=== PATIENT | male | born 1965 | race Caucasian/White ===

== ENCOUNTER 2017-10-30 17:07 | Inpatient (IN) ==
[2017-10-30] MEDS ORDERED: Sod Chloride 0.9% Inj 1,000 ML IV.SIG SCH ×2 (17:45)
--- NOTE | 2017-10-30 18:05 | ED ---
HPI General Chief complaint: Fever Stated complaint: Medical Time Seen by Provider: 10/30/17 17:25 Source: patient and EMS Mode of arrival: EMS Limitations: no limitations History of Present Illness HPI narrative: Patient is a 52-year-old male presenting to emerge department for evaluation of fevers. Patient was found in his hotel room by his friend with bruising on him, dried blood on his face and toes. Patient admits to binge drinking at least 1/5 of alcohol since Monday. Patient is reporting back pain. He states he feels shaky and thirsty. He denies any chest pain, shortness of breath, abdominal pain. He reports that his feet are bloody because he was walking in "crappy" flip-flops. He denies a significant past medical history, however he does not see a primary doctor. Patient states he binge drinks at least 3 times a week. Onset (ago): unknown Related Data Home Medications Medication Instructions Recorded Confirmed No Known Home Medications 10/30/17 10/30/17 Allergies Allergy/AdvReac Type Severity Reaction Status Date / Time No Known Allergies Allergy Unverified 10/30/17 17:35 Review of Systems Except as stated in HPI: all other systems reviewed are negative Constitutional Reports fever(s) and Reports weakness ENT Reports dry mouth Integumentary/Breasts Reports change in pigmentation, Reports lesions, Reports erythema, Reports unusual bruising and Reports jaundice Neurologic Reports frequent falls and Reports tremor(s) Hematologic/Lymphatic Reports easy bruising PMFSH Medical History Medical History EtOH dependence (Acute) Surgical History Surgical History No pertinent past surgical history (Acute) Family History Family History Uncle EtOH dependence Mother Breast cancer Father Prostate cancer Leukemia Social History Social History Substance History: Unable to Obtain Smoking Status: Current every day smoker Tobacco Type: Smokeless Tobacco How Often Do You Have a Drink Containing Alcohol: 4 or more times a week Recent Travel in [facility] within the Last 8 Weeks: No Recent Out of Country Travel within the Last 8 Weeks: No Immunization History Tetanus Immunization: Unsure Hx Influenza Vaccine This Season: No Exam Narrative Exam Narrative: GENERAL: Overweight, well-developed, alert male. Presenting in no acute distress. SKIN: Focused skin assessment warm/dry. Abrasion to plantar aspect of the left first toe, left third toe, right first and second toes. Bruising to right shoulder, left lower back, left buttock. Bruising to abdomen. Chronic discoloration to bilateral lower extremities. HEAD: Atraumatic. Normocephalic. EYES: Pupils equal and round. No scleral icterus. No injection or drainage. ENT: No nasal bleeding or discharge. Mucous membranes pink and moist. NECK: Trachea midline. No JVD. CARDIOVASCULAR: Tachycardic. No murmur appreciated. RESPIRATORY: No accessory muscle use. Clear to auscultation. Breath sounds equal bilaterally. GASTROINTESTINAL: Abdomen soft, non-tender, distended. Hepatic and splenic margins not palpable. MUSCULOSKELETAL: No obvious deformities. No clubbing. No cyanosis. No edema. NEUROLOGICAL: Awake and alert. No obvious cranial nerve deficits. Motor grossly within normal limits. Normal speech. Tremulous. PSYCHIATRIC: Appropriate mood and affect; insight and judgment normal. Course Initial Documented Vital Signs Temperature 103 F H 10/30/17 17:14 Pulse Rate 131 H 10/30/17 17:14 Respiratory Rate 20 10/30/17 17:14 Blood Pressure 129/58 L 10/30/17 17:14 Pulse Oximetry 95 10/30/17 17:14 Last Documented Vital Signs Temperature 100 F H 10/31/17 04:00 Pulse Rate 115 H 10/31/17 16:21 Respiratory Rate 29 H 10/31/17 16:23 Blood Pressure 81/54 L 10/31/17 04:00 Pulse Oximetry 100 10/31/17 13:15 Medical Decision Making LISA Attestation LISA supervised visit: Yes Attestation: I, Dr. Vera, have reviewed the advance practice practitioner's documentation and am in agreement, met with the patient face to face, made the diagnosis, and the medical decision making was done by me. The patient was initially evaluated by Sasha, the SUBSTANCE ABUSE NURSE. Please see their complete history and physical. *My assessment and Findings: The patient presents with a history of being found by a friend at a local hotel with altered mentation. The patient was noted to have dried blood in his nose, dried blood around his mouth, abrasions to his feet. The patient was noted to have tremulousness and fever. The patient reports that he is a daily alcohol drinker of approximately 1/5 of Vodka daily. The patient reports that he last had vodka earlier this morning. The patient reports having low back pain. When asked about his abrasions, he is unsure what happened. The only thing that the patient recalls is that he was wearing flip-flops which he tripped over. The patient's examination is remarkable for sinus tachycardia, tremulousness on examination. Abrasions and swelling to bilateral feet, dried blood present at the corners of the mouth, dried blood present in the patient's nose. During the course of the patient's emergency department visit, the patient's history, examination, and differential diagnosis were reviewed with the patient. The patient was placed on a hospital monitor with oximetry and frequent blood pressure monitoring. The patient had IV access obtained and blood work sent for analysis. The patient was initially provided normal saline IV fluids, thiamine 100 mg IV, broad-spectrum antibiotic coverage of vancomycin and Zosyn. The patient's laboratory studies were reviewed and remarkable for a white count of 23.5, toxic vacuolation is present, neutrophil predominance 93.9. Platelets are 76, hemoglobin is 13.1. PT is 19.4, INR 1.9, PTT 43.2, chemistry is remarkable for sodium 135, total bilirubin 5.4, glucose 260, magnesium 1.1 which will be supplemented IV, lipase 59, GFR 56, creatinine 1.33, CO2 19.5, calcium is 7.8, AST 174, anion gap 18, alk phos 269, albumin 2.6. Urinalysis shows few mucus, hazy urine, rare bacteria, culture not indicated. A chest x-ray shows subsegmental basilar airspace disease right greater than left differential diagnosis includes pneumonia and atelectasis in a patient with fever. A CT scan of the brain shows no acute abnormality. The patient's results were discussed with the patient, including the plan of care. I explained that further testing and/ or monitoring is indicated based on the patient's history, examination, and/ or laboratory findings. Therefore, I recommended admission for additional evaluation. The patient expressed understanding and was agreeable with this plan. The patient was admitted to the hospital in guarded condition and sent to a bed under the care of the documentation engineer's service. MDM Narrative Medical decision making narrative: Patient is a 52-year-old male presenting to emerge department for evaluation fever, alteration in mentation. Patient is an admitted alcoholic and has been binge drinking since Monday. Patient is tachycardic and febrile on arrival with temp of 103. Sepsis protocol initiated. Patient was given acetaminophen IV for his fever. Patient is received a total of 3 L of IV fluids. On arrival he was tremulous, he was initially given 1 mg of Ativan. This did not completely alleviate his symptoms , he was given a second 1 mg dose of Ativan. Tremors improved patient started to rest more comfortably. Patient remained tachycardic. Labs reviewed, CBC with white blood cell count of 23.5 with 26% bandemia. Magnesium is 1.1, 1 g of mag sulfate IV was ordered. Coagulopathy noted likely secondary to patient' s liver disease with an INR of 1.9. CT of the abdomen pelvis shows mild colitis , CT pulmonary angiogram shows right lung pneumonia, negative for pulmonary embolism. CT scan of patient's brain was negative for acute abnormalities. Blood cultures ordered and pending. Patient was also seen and evaluated by my attending physician. [place] [facility] [place] accepted admission, orders placed. Patient's temp was reassessed at 98.8 at 2132. Differential Diagnosis Differential Diagnosis: Metabolic abnormality versus alcohol withdrawal versus pulmonary embolism versus pneumonia versus bleed versus other Lab Data Lab results reviewed: Yes I reviewed the patient's lab results. Result diagrams: 10/31/17 04:18 10/31/17 12:04 Lab Results 10/30/17 10/30/17 10/30/17 Range/Units 17:39 17:39 17:39 WBC 23.5 H (4.0-11.0) th/mm3 RBC 3.74 L (4.50-5.90) mil/mm3 Hgb 13.1 (13.0-17.0) gm/dL Hct 39.2 (39.0-51.0) % MCV 104.6 H (80.0-100.0) fL MCH 35.1 H (27.0-34.0) pg MCHC 33.5 (32.0-36.0) % RDW 13.9 (11.6-17.2) % Plt Count 76 L (150-450) th/mm3 MPV 9.0 (7.0-11.0) fL Prelim Diff (Auto) Slide review pending Neut % (Auto) 93.9 H (16.0-70.0) % Lymph % (Auto) 2.2 L (9.0-44.0) % [place] % (Auto) 3.7 (0.0-8.0) % Eos % (Auto) 0.0 (0.0-4.0) % Baso % (Auto) 0.2 (0.0-2.0) % Neut # (Auto) 22.0 H (1.8-7.7) th/mm3 Lymph # (Auto) 0.5 L (1.0-4.8) th/mm3 [place] # (Auto) 0.9 (0.0-0.9) th/mm3 Eos # (Auto) 0.0 (0.0-0.4) th/mm3 Baso # (Auto) 0.0 (0.0-0.2) th/mm3 WBC Differential Manual diff final Seg Neuts % (Manual) 67 (16-70) % Band Neuts % (Manual) 26 H (0-6) % Lymphocytes % (Manual) (9-44) % Monocytes % (Manual) 5 (0-8) % Basophils % (Manual) 1 (0-2) % Metamyelocytes % (Man) 1 (0-1) % Abs Neuts (Manual) 22.1 H (1.8-7.7) th/mm3 Differential Comment . Toxic Granulation (None) Toxic Vacuolation Present H (None) Platelet Estimate Low L (Normal) Platelet Morphology Normal (Normal) Basophilic Stippling Faint H (None) PT 19.4 H (9.8-11.6) sec INR 1.9 Ratio APTT 43.2 H (24.3-30.1) sec Fibrinogen (227-377) mg/dL Puncture Site Patient Temperature O2 Saturation (90-100) % ABG pH (7.380-7.420) ABG pCO2 (38-42) mmHg ABG pO2 (61-120) mmHG ABG HCO3 (22-26) mmol/L ABG O2 Content (12.0-20.0) Vol % ABG Base Excess (-2-2) mmol/L ABG Methemoglobin (0-2) % Jamar Test Hemoglobin (12.0-16.0) G/DL Carboxyhemoglobin (0-4) % O2 Delivery Device Vent Setting Inspired O2 % Critical Value Sodium 135 L (136-145) meq/L Potassium 4.4 (3.5-5.1) meq/L Chloride 98 (98-107) meq/L Carbon Dioxide 19.5 L (21.0-32.0) meq/L Anion Gap 18 H (5-15) meq/L BUN 7 (7-18) mg/dL Creatinine 1.33 H (0.60-1.30) mg/dL Estimated GFR 56 L (>89) mL/min POC Glucose (68-110) mg/dl Random Glucose 260 H (74-106) mg/dL Lactic Acid (0.4-2.0) mmol/L Calcium 7.8 L (8.5-10.1) mg/dL Prot Corrected Calcium (8.5-10.1) mg/dL Phosphorus (2.5-4.9) mg/dL Magnesium 1.1 L (1.5-2.5) mg/dL Total Bilirubin 5.4 H (0.2-1.0) mg/dL AST 174 H (15-37) U/L ALT 39 (12-78) U/L Alkaline Phosphatase 269 H (45-117) U/L Ammonia (11-32) mcmol/L Total Creatine Kinase (39-308) U/L CK-MB (CK-2) (0.5-3.6) ng/mL CK-MB (CK-2) % (0.0-4.0) % Total Protein 7.8 (6.4-8.2) g/dL Albumin 2.6 L (3.4-5.0) g/dL Lipase 59 L (73-393) U/L Beta-Hydroxybutyric Acd (0.00-0.39) mmol/L TSH (0.358-3.740) uIU/mL Free T4 (0.76-1.46) ng/dL Free T3 (2.18-3.98) pg/mL Urine Color (Yellw/Straw) Urine Clarity (Clear) Urine pH (5.0-8.5) Ur Specific [place] (1.002-1.035) Urine Protein (Neg-Trace) mg/dL Urine Glucose (UA) (Negative) mg/dL Urine Ketones (Negative) mg/dL Urine Occult Blood (Negative) Urine Nitrate (Negative) Urine Bilirubin (Negative) Urine Urobilinogen (Less than 2) mg/dL Ur Leukocyte Esterase (Negative) Urine RBC (0-3) /hpf Urine WBC (0-5) /hpf Ur Squamous Epith Cells (0-5) /hpf Urine Bacteria (None) /hpf Hyaline Casts (0-3) /lpf Urine Mucus (Occasional) /lpf Micro UA Comment Urine Culture Comments Nasal Screen MRSA (PCR) (Negative) Salicylates (2.8-20.0) mg/dL Urine Opiates Screen (Neg) Acetaminophen (10.0-30.0) mcg/mL Ur Barbiturates Screen (Neg) Ur Amphetamines Screen (Neg) U Benzodiazepines Scrn (Neg) Urine Cocaine Screen (Neg) U Cannabinoids Screen (Neg) Serum Alcohol (0-5) mg/dL 10/30/17 10/30/17 10/30/17 Range/Units 17:39 17:39 17:39 WBC (4.0-11.0) th/mm3 RBC (4.50-5.90) mil/mm3 Hgb (13.0-17.0) gm/dL Hct (39.0-51.0) % MCV (80.0-100.0) fL MCH (27.0-34.0) pg MCHC (32.0-36.0) % RDW (11.6-17.2) % Plt Count (150-450) th/mm3 MPV (7.0-11.0) fL Prelim Diff (Auto) Neut % (Auto) (16.0-70.0) % Lymph % (Auto) (9.0-44.0) % [place] % (Auto) (0.0-8.0) % Eos % (Auto) (0.0-4.0) % Baso % (Auto) (0.0-2.0) % Neut # (Auto) (1.8-7.7) th/mm3 Lymph # (Auto) (1.0-4.8) th/mm3 [place] # (Auto) (0.0-0.9) th/mm3 Eos # (Auto) (0.0-0.4) th/mm3 Baso # (Auto) (0.0-0.2) th/mm3 WBC Differential Seg Neuts % (Manual) (16-70) % Band Neuts % (Manual) (0-6) % Lymphocytes % (Manual) (9-44) % Monocytes % (Manual) (0-8) % Basophils % (Manual) (0-2) % Metamyelocytes % (Man) (0-1) % Abs Neuts (Manual) (1.8-7.7) th/mm3 Differential Comment Toxic Granulation (None) Toxic Vacuolation (None) Platelet Estimate (Normal) Platelet Morphology (Normal) Basophilic Stippling (None) PT (9.8-11.6) sec INR Ratio APTT (24.3-30.1) sec Fibrinogen (227-377) mg/dL Puncture Site Patient Temperature O2 Saturation (90-100) % ABG pH (7.380-7.420) ABG pCO2 (38-42) mmHg ABG pO2 (61-120) mmHG ABG HCO3 (22-26) mmol/L ABG O2 Content (12.0-20.0) Vol % ABG Base Excess (-2-2) mmol/L ABG Methemoglobin (0-2) % Jamar Test Hemoglobin (12.0-16.0) G/DL Carboxyhemoglobin (0-4) % O2 Delivery Device Vent Setting Inspired O2 % Critical Value Sodium (136-145) meq/L Potassium (3.5-5.1) meq/L Chloride (98-107) meq/L Carbon Dioxide (21.0-32.0) meq/L Anion Gap (5-15) meq/L BUN (7-18) mg/dL Creatinine (0.60-1.30) mg/dL Estimated GFR (>89) mL/min POC Glucose (68-110) mg/dl Random Glucose (74-106) mg/dL Lactic Acid (0.4-2.0) mmol/L Calcium (8.5-10.1) mg/dL Prot Corrected Calcium (8.5-10.1) mg/dL Phosphorus 1.2 L (2.5-4.9) mg/dL Magnesium (1.5-2.5) mg/dL Total Bilirubin (0.2-1.0) mg/dL AST (15-37) U/L ALT (12-78) U/L Alkaline Phosphatase (45-117) U/L Ammonia (11-32) mcmol/L Total Creatine Kinase (39-308) U/L CK-MB (CK-2) (0.5-3.6) ng/mL CK-MB (CK-2) % (0.0-4.0) % Total Protein (6.4-8.2) g/dL Albumin (3.4-5.0) g/dL Lipase (73-393) U/L Beta-Hydroxybutyric Acd (0.00-0.39) mmol/L TSH 0.250 L (0.358-3.740) uIU/mL Free T4 (0.76-1.46) ng/dL Free T3 (2.18-3.98) pg/mL Urine Color (Yellw/Straw) Urine Clarity (Clear) Urine pH (5.0-8.5) Ur Specific [place] (1.002-1.035) Urine Protein (Neg-Trace) mg/dL Urine Glucose (UA) (Negative) mg/dL Urine Ketones (Negative) mg/dL Urine Occult Blood (Negative) Urine Nitrate (Negative) Urine Bilirubin (Negative) Urine Urobilinogen (Less than 2) mg/dL Ur Leukocyte Esterase (Negative) Urine RBC (0-3) /hpf Urine WBC (0-5) /hpf Ur Squamous Epith Cells (0-5) /hpf Urine Bacteria (None) /hpf Hyaline Casts (0-3) /lpf Urine Mucus (Occasional) /lpf Micro UA Comment Urine Culture Comments Nasal Screen MRSA (PCR) (Negative) Salicylates Less than 1.7 L (2.8-20.0) mg/dL Urine Opiates Screen (Neg) Acetaminophen Less than 2.0 L (10.0-30.0) mcg/mL Ur Barbiturates Screen (Neg) Ur Amphetamines Screen (Neg) U Benzodiazepines Scrn (Neg) Urine Cocaine Screen (Neg) U Cannabinoids Screen (Neg) Serum Alcohol 147 H (0-5) mg/dL 10/30/17 10/30/17 10/30/17 Range/Units 17:45 17:45 19:29 WBC (4.0-11.0) th/mm3 RBC (4.50-5.90) mil/mm3 Hgb (13.0-17.0) gm/dL Hct (39.0-51.0) % MCV (80.0-100.0) fL MCH (27.0-34.0) pg MCHC (32.0-36.0) % RDW (11.6-17.2) % Plt Count (150-450) th/mm3 MPV (7.0-11.0) fL Prelim Diff (Auto) Neut % (Auto) (16.0-70.0) % Lymph % (Auto) (9.0-44.0) % [place] % (Auto) (0.0-8.0) % Eos % (Auto) (0.0-4.0) % Baso % (Auto) (0.0-2.0) % Neut # (Auto) (1.8-7.7) th/mm3 Lymph # (Auto) (1.0-4.8) th/mm3 [place] # (Auto) (0.0-0.9) th/mm3 Eos # (Auto) (0.0-0.4) th/mm3 Baso # (Auto) (0.0-0.2) th/mm3 WBC Differential Seg Neuts % (Manual) (16-70) % Band Neuts % (Manual) (0-6) % Lymphocytes % (Manual) (9-44) % Monocytes % (Manual) (0-8) % Basophils % (Manual) (0-2) % Metamyelocytes % (Man) (0-1) % Abs Neuts (Manual) (1.8-7.7) th/mm3 Differential Comment Toxic Granulation (None) Toxic Vacuolation (None) Platelet Estimate (Normal) Platelet Morphology (Normal) Basophilic Stippling (None) PT (9.8-11.6) sec INR Ratio APTT (24.3-30.1) sec Fibrinogen (227-377) mg/dL Puncture Site Patient Temperature O2 Saturation (90-100) % ABG pH (7.380-7.420) ABG pCO2 (38-42) mmHg ABG pO2 (61-120) mmHG ABG HCO3 (22-26) mmol/L ABG O2 Content (12.0-20.0) Vol % ABG Base Excess (-2-2) mmol/L ABG Methemoglobin (0-2) % Jamar Test Hemoglobin (12.0-16.0) G/DL Carboxyhemoglobin (0-4) % O2 Delivery Device Vent Setting Inspired O2 % Critical Value Sodium (136-145) meq/L Potassium (3.5-5.1) meq/L Chloride (98-107) meq/L Carbon Dioxide (21.0-32.0) meq/L Anion Gap (5-15) meq/L BUN (7-18) mg/dL Creatinine (0.60-1.30) mg/dL Estimated GFR (>89) mL/min POC Glucose (68-110) mg/dl Random Glucose (74-106) mg/dL Lactic Acid 11.4 H* (0.4-2.0) mmol/L Calcium (8.5-10.1) mg/dL Prot Corrected Calcium (8.5-10.1) mg/dL Phosphorus (2.5-4.9) mg/dL Magnesium (1.5-2.5) mg/dL Total Bilirubin (0.2-1.0) mg/dL AST (15-37) U/L ALT (12-78) U/L Alkaline Phosphatase (45-117) U/L Ammonia (11-32) mcmol/L Total Creatine Kinase (39-308) U/L CK-MB (CK-2) (0.5-3.6) ng/mL CK-MB (CK-2) % (0.0-4.0) % Total Protein (6.4-8.2) g/dL Albumin (3.4-5.0) g/dL Lipase (73-393) U/L Beta-Hydroxybutyric Acd (0.00-0.39) mmol/L TSH (0.358-3.740) uIU/mL Free T4 (0.76-1.46) ng/dL Free T3 (2.18-3.98) pg/mL Urine Color [place] (Yellw/Straw) Urine Clarity Hazy H (Clear) Urine pH 5.0 (5.0-8.5) Ur Specific [place] 1.017 (1.002-1.035) Urine Protein Negative (Neg-Trace) mg/dL Urine Glucose (UA) 50 (Negative) mg/dL Urine Ketones Negative (Negative) mg/dL Urine Occult Blood Negative (Negative) Urine Nitrate Negative (Negative) Urine Bilirubin Negative (Negative) Urine Urobilinogen 4 or greater (Less than 2) mg/dL Ur Leukocyte Esterase Negative (Negative) Urine RBC 1 (0-3) /hpf Urine WBC 3 (0-5) /hpf Ur Squamous Epith Cells <1 (0-5) /hpf Urine Bacteria Rare H (None) /hpf Hyaline Casts 6 (0-3) /lpf Urine Mucus Few H (Occasional) /lpf Micro UA Comment Culture not ind Urine Culture Comments Culture not ind Nasal Screen MRSA (PCR) (Negative) Salicylates (2.8-20.0) mg/dL Urine Opiates Screen Neg (Neg) Acetaminophen (10.0-30.0) mcg/mL Ur Barbiturates Screen Neg (Neg) Ur Amphetamines Screen Neg (Neg) U Benzodiazepines Scrn Neg (Neg) Urine Cocaine Screen Neg (Neg) U Cannabinoids Screen Neg (Neg) Serum Alcohol (0-5) mg/dL 10/30/17 10/30/17 10/30/17 Range/Units 22:28 22:28 22:28 WBC (4.0-11.0) th/mm3 RBC (4.50-5.90) mil/mm3 Hgb (13.0-17.0) gm/dL Hct (39.0-51.0) % MCV (80.0-100.0) fL MCH (27.0-34.0) pg MCHC (32.0-36.0) % RDW (11.6-17.2) % Plt Count (150-450) th/mm3 MPV (7.0-11.0) fL Prelim Diff (Auto) Neut % (Auto) (16.0-70.0) % Lymph % (Auto) (9.0-44.0) % [place] % (Auto) (0.0-8.0) % Eos % (Auto) (0.0-4.0) % Baso % (Auto) (0.0-2.0) % Neut # (Auto) (1.8-7.7) th/mm3 Lymph # (Auto) (1.0-4.8) th/mm3 [place] # (Auto) (0.0-0.9) th/mm3 Eos # (Auto) (0.0-0.4) th/mm3 Baso # (Auto) (0.0-0.2) th/mm3 WBC Differential Seg Neuts % (Manual) (16-70) % Band Neuts % (Manual) (0-6) % Lymphocytes % (Manual) (9-44) % Monocytes % (Manual) (0-8) % Basophils % (Manual) (0-2) % Metamyelocytes % (Man) (0-1) % Abs Neuts (Manual) (1.8-7.7) th/mm3 Differential Comment Toxic Granulation (None) Toxic Vacuolation (None) Platelet Estimate (Normal) Platelet Morphology (Normal) Basophilic Stippling (None) PT (9.8-11.6) sec INR Ratio APTT (24.3-30.1) sec Fibrinogen (227-377) mg/dL Puncture Site Patient Temperature O2 Saturation (90-100) % ABG pH (7.380-7.420) ABG pCO2 (38-42) mmHg ABG pO2 (61-120) mmHG ABG HCO3 (22-26) mmol/L ABG O2 Content (12.0-20.0) Vol % ABG Base Excess (-2-2) mmol/L ABG Methemoglobin (0-2) % Jamar Test Hemoglobin (12.0-16.0) G/DL Carboxyhemoglobin (0-4) % O2 Delivery Device Vent Setting Inspired O2 % Critical Value Sodium (136-145) meq/L Potassium (3.5-5.1) meq/L Chloride (98-107) meq/L Carbon Dioxide (21.0-32.0) meq/L Anion Gap (5-15) meq/L BUN (7-18) mg/dL Creatinine (0.60-1.30) mg/dL Estimated GFR (>89) mL/min POC Glucose (68-110) mg/dl Random Glucose (74-106) mg/dL Lactic Acid 11.1 H* (0.4-2.0) mmol/L Calcium (8.5-10.1) mg/dL Prot Corrected Calcium (8.5-10.1) mg/dL Phosphorus (2.5-4.9) mg/dL Magnesium (1.5-2.5) mg/dL Total Bilirubin (0.2-1.0) mg/dL AST (15-37) U/L ALT (12-78) U/L Alkaline Phosphatase (45-117) U/L Ammonia 44 H (11-32) mcmol/L Total Creatine Kinase (39-308) U/L CK-MB (CK-2) (0.5-3.6) ng/mL CK-MB (CK-2) % (0.0-4.0) % Total Protein (6.4-8.2) g/dL Albumin (3.4-5.0) g/dL Lipase (73-393) U/L Beta-Hydroxybutyric Acd 0.13 (0.00-0.39) mmol/L TSH (0.358-3.740) uIU/mL Free T4 (0.76-1.46) ng/dL Free T3 (2.18-3.98) pg/mL Urine Color (Yellw/Straw) Urine Clarity (Clear) Urine pH (5.0-8.5) Ur Specific [place] (1.002-1.035) Urine Protein (Neg-Trace) mg/dL Urine Glucose (UA) (Negative) mg/dL Urine Ketones (Negative) mg/dL Urine Occult Blood (Negative) Urine Nitrate (Negative) Urine Bilirubin (Negative) Urine Urobilinogen (Less than 2) mg/dL Ur Leukocyte Esterase (Negative) Urine RBC (0-3) /hpf Urine WBC (0-5) /hpf Ur Squamous Epith Cells (0-5) /hpf Urine Bacteria (None) /hpf Hyaline Casts (0-3) /lpf Urine Mucus (Occasional) /lpf Micro UA Comment Urine Culture Comments Nasal Screen MRSA (PCR) (Negative) Salicylates (2.8-20.0) mg/dL Urine Opiates Screen (Neg) Acetaminophen (10.0-30.0) mcg/mL Ur Barbiturates Screen (Neg) Ur Amphetamines Screen (Neg) U Benzodiazepines Scrn (Neg) Urine Cocaine Screen (Neg) U Cannabinoids Screen (Neg) Serum Alcohol (0-5) mg/dL 10/30/17 10/31/17 10/31/17 Range/Units 23:12 02:26 04:18 WBC (4.0-11.0) th/mm3 RBC (4.50-5.90) mil/mm3 Hgb (13.0-17.0) gm/dL Hct (39.0-51.0) % MCV (80.0-100.0) fL MCH (27.0-34.0) pg MCHC (32.0-36.0) % RDW (11.6-17.2) % Plt Count (150-450) th/mm3 MPV (7.0-11.0) fL Prelim Diff (Auto) Neut % (Auto) (16.0-70.0) % Lymph % (Auto) (9.0-44.0) % [place] % (Auto) (0.0-8.0) % Eos % (Auto) (0.0-4.0) % Baso % (Auto) (0.0-2.0) % Neut # (Auto) (1.8-7.7) th/mm3 Lymph # (Auto) (1.0-4.8) th/mm3 [place] # (Auto) (0.0-0.9) th/mm3 Eos # (Auto) (0.0-0.4) th/mm3 Baso # (Auto) (0.0-0.2) th/mm3 WBC Differential Seg Neuts % (Manual) (16-70) % Band Neuts % (Manual) (0-6) % Lymphocytes % (Manual) (9-44) % Monocytes % (Manual) (0-8) % Basophils % (Manual) (0-2) % Metamyelocytes % (Man) (0-1) % Abs Neuts (Manual) (1.8-7.7) th/mm3 Differential Comment Toxic Granulation (None) Toxic Vacuolation (None) Platelet Estimate (Normal) Platelet Morphology (Normal) Basophilic Stippling (None) PT (9.8-11.6) sec INR Ratio APTT (24.3-30.1) sec Fibrinogen (227-377) mg/dL Puncture Site Right radial Patient Temperature 98.6 O2 Saturation 93 (90-100) % ABG pH 7.32 L (7.380-7.420) ABG pCO2 37 L (38-42) mmHg ABG pO2 83 (61-120) mmHG ABG HCO3 19 L (22-26) mmol/L ABG O2 Content 16.2 (12.0-20.0) Vol % ABG Base Excess -6.4 L (-2-2) mmol/L ABG Methemoglobin 1.3 (0-2) % Jamar Test Present Hemoglobin 12.3 (12.0-16.0) G/DL Carboxyhemoglobin 0.8 (0-4) % O2 Delivery Device Vent Vent Setting See comments Inspired O2 100 % Critical Value No Sodium (136-145) meq/L Potassium (3.5-5.1) meq/L Chloride (98-107) meq/L Carbon Dioxide (21.0-32.0) meq/L Anion Gap (5-15) meq/L BUN (7-18) mg/dL Creatinine (0.60-1.30) mg/dL Estimated GFR (>89) mL/min POC Glucose (68-110) mg/dl Random Glucose (74-106) mg/dL Lactic Acid 9.0 H* (0.4-2.0) mmol/L Calcium (8.5-10.1) mg/dL Prot Corrected Calcium (8.5-10.1) mg/dL Phosphorus (2.5-4.9) mg/dL Magnesium (1.5-2.5) mg/dL Total Bilirubin (0.2-1.0) mg/dL AST (15-37) U/L ALT (12-78) U/L Alkaline Phosphatase (45-117) U/L Ammonia (11-32) mcmol/L Total Creatine Kinase (39-308) U/L CK-MB (CK-2) (0.5-3.6) ng/mL CK-MB (CK-2) % (0.0-4.0) % Total Protein (6.4-8.2) g/dL Albumin (3.4-5.0) g/dL Lipase (73-393) U/L Beta-Hydroxybutyric Acd (0.00-0.39) mmol/L TSH (0.358-3.740) uIU/mL Free T4 (0.76-1.46) ng/dL Free T3 (2.18-3.98) pg/mL Urine Color (Yellw/Straw) Urine Clarity (Clear) Urine pH (5.0-8.5) Ur Specific [place] (1.002-1.035) Urine Protein (Neg-Trace) mg/dL Urine Glucose (UA) (Negative) mg/dL Urine Ketones (Negative) mg/dL Urine Occult Blood (Negative) Urine Nitrate (Negative) Urine Bilirubin (Negative) Urine Urobilinogen (Less than 2) mg/dL Ur Leukocyte Esterase (Negative) Urine RBC (0-3) /hpf Urine WBC (0-5) /hpf Ur Squamous Epith Cells (0-5) /hpf Urine Bacteria (None) /hpf Hyaline Casts (0-3) /lpf Urine Mucus (Occasional) /lpf Micro UA Comment Urine Culture Comments Nasal Screen MRSA (PCR) Mrsa detected (Negative) Salicylates (2.8-20.0) mg/dL Urine Opiates Screen (Neg) Acetaminophen (10.0-30.0) mcg/mL Ur Barbiturates Screen (Neg) Ur Amphetamines Screen (Neg) U Benzodiazepines Scrn (Neg) Urine Cocaine Screen (Neg) U Cannabinoids Screen (Neg) Serum Alcohol (0-5) mg/dL 10/31/17 10/31/17 10/31/17 Range/Units 04:18 04:18 04:18 WBC 23.8 H (4.0-11.0) th/mm3 RBC 3.70 L (4.50-5.90) mil/mm3 Hgb 12.8 L (13.0-17.0) gm/dL Hct 38.7 L (39.0-51.0) % MCV 104.6 H (80.0-100.0) fL MCH 34.6 H (27.0-34.0) pg MCHC 33.1 (32.0-36.0) % RDW 14.7 (11.6-17.2) % Plt Count 70 L (150-450) th/mm3 MPV 9.8 (7.0-11.0) fL Prelim Diff (Auto) Slide review pending Neut % (Auto) 95.5 H (16.0-70.0) % Lymph % (Auto) 1.0 L (9.0-44.0) % [place] % (Auto) 2.9 (0.0-8.0) % Eos % (Auto) 0.0 (0.0-4.0) % Baso % (Auto) 0.6 (0.0-2.0) % Neut # (Auto) 22.8 H (1.8-7.7) th/mm3 Lymph # (Auto) 0.2 L (1.0-4.8) th/mm3 [place] # (Auto) 0.7 (0.0-0.9) th/mm3 Eos # (Auto) 0.0 (0.0-0.4) th/mm3 Baso # (Auto) 0.1 (0.0-0.2) th/mm3 WBC Differential Manual diff final Seg Neuts % (Manual) 59 (16-70) % Band Neuts % (Manual) 35 H (0-6) % Lymphocytes % (Manual) 1 L (9-44) % Monocytes % (Manual) 1 (0-8) % Basophils % (Manual) (0-2) % Metamyelocytes % (Man) 4 H (0-1) % Abs Neuts (Manual) 23.3 H (1.8-7.7) th/mm3 Differential Comment . Toxic Granulation 1+ H (None) Toxic Vacuolation Present H (None) Platelet Estimate Low L (Normal) Platelet Morphology Enlarged H (Normal) Basophilic Stippling (None) PT 20.8 H (9.8-11.6) sec INR 2.1 Ratio APTT 53.0 H D (24.3-30.1) sec Fibrinogen 206 L (227-377) mg/dL Puncture Site Patient Temperature O2 Saturation (90-100) % ABG pH (7.380-7.420) ABG pCO2 (38-42) mmHg ABG pO2 (61-120) mmHG ABG HCO3 (22-26) mmol/L ABG O2 Content (12.0-20.0) Vol % ABG Base Excess (-2-2) mmol/L ABG Methemoglobin (0-2) % Jamar Test Hemoglobin (12.0-16.0) G/DL Carboxyhemoglobin (0-4) % O2 Delivery Device Vent Setting Inspired O2 % Critical Value Sodium 138 (136-145) meq/L Potassium 5.4 H D (3.5-5.1) meq/L Chloride 101 (98-107) meq/L Carbon Dioxide 23.2 (21.0-32.0) meq/L Anion Gap 14 (5-15) meq/L BUN 9 (7-18) mg/dL Creatinine 1.95 H (0.60-1.30) mg/dL Estimated GFR 36 L (>89) mL/min POC Glucose (68-110) mg/dl Random Glucose 139 H D (74-106) mg/dL Lactic Acid (0.4-2.0) mmol/L Calcium 7.1 L* (8.5-10.1) mg/dL Prot Corrected Calcium 7.1 L* (8.5-10.1) mg/dL Phosphorus 3.4 D (2.5-4.9) mg/dL Magnesium 1.2 L (1.5-2.5) mg/dL Total Bilirubin 6.5 H (0.2-1.0) mg/dL AST 173 H (15-37) U/L ALT 36 (12-78) U/L Alkaline Phosphatase 184 H (45-117) U/L Ammonia (11-32) mcmol/L Total Creatine Kinase (39-308) U/L CK-MB (CK-2) (0.5-3.6) ng/mL CK-MB (CK-2) % (0.0-4.0) % Total Protein 7.3 (6.4-8.2) g/dL Albumin 2.5 L (3.4-5.0) g/dL Lipase (73-393) U/L Beta-Hydroxybutyric Acd (0.00-0.39) mmol/L TSH (0.358-3.740) uIU/mL Free T4 1.28 (0.76-1.46) ng/dL Free T3 1.57 L (2.18-3.98) pg/mL Urine Color (Yellw/Straw) Urine Clarity (Clear) Urine pH (5.0-8.5) Ur Specific [place] (1.002-1.035) Urine Protein (Neg-Trace) mg/dL Urine Glucose (UA) (Negative) mg/dL Urine Ketones (Negative) mg/dL Urine Occult Blood (Negative) Urine Nitrate (Negative) Urine Bilirubin (Negative) Urine Urobilinogen (Less than 2) mg/dL Ur Leukocyte Esterase (Negative) Urine RBC (0-3) /hpf Urine WBC (0-5) /hpf Ur Squamous Epith Cells (0-5) /hpf Urine Bacteria (None) /hpf Hyaline Casts (0-3) /lpf Urine Mucus (Occasional) /lpf Micro UA Comment Urine Culture Comments Nasal Screen MRSA (PCR) (Negative) Salicylates (2.8-20.0) mg/dL Urine Opiates Screen (Neg) Acetaminophen (10.0-30.0) mcg/mL Ur Barbiturates Screen (Neg) Ur Amphetamines Screen (Neg) U Benzodiazepines Scrn (Neg) Urine Cocaine Screen (Neg) U Cannabinoids Screen (Neg) Serum Alcohol (0-5) mg/dL 10/31/17 10/31/17 10/31/17 Range/Units 12:04 12:04 12:04 WBC (4.0-11.0) th/mm3 RBC (4.50-5.90) mil/mm3 Hgb (13.0-17.0) gm/dL Hct (39.0-51.0) % MCV (80.0-100.0) fL MCH (27.0-34.0) pg MCHC (32.0-36.0) % RDW (11.6-17.2) % Plt Count (150-450) th/mm3 MPV (7.0-11.0) fL Prelim Diff (Auto) Neut % (Auto) (16.0-70.0) % Lymph % (Auto) (9.0-44.0) % [place] % (Auto) (0.0-8.0) % Eos % (Auto) (0.0-4.0) % Baso % (Auto) (0.0-2.0) % Neut # (Auto) (1.8-7.7) th/mm3 Lymph # (Auto) (1.0-4.8) th/mm3 [place] # (Auto) (0.0-0.9) th/mm3 Eos # (Auto) (0.0-0.4) th/mm3 Baso # (Auto) (0.0-0.2) th/mm3 WBC Differential Seg Neuts % (Manual) (16-70) % Band Neuts % (Manual) (0-6) % Lymphocytes % (Manual) (9-44) % Monocytes % (Manual) (0-8) % Basophils % (Manual) (0-2) % Metamyelocytes % (Man) (0-1) % Abs Neuts (Manual) (1.8-7.7) th/mm3 Differential Comment Toxic Granulation (None) Toxic Vacuolation (None) Platelet Estimate (Normal) Platelet Morphology (Normal) Basophilic Stippling (None) PT (9.8-11.6) sec INR Ratio APTT (24.3-30.1) sec Fibrinogen (227-377) mg/dL Puncture Site Patient Temperature O2 Saturation (90-100) % ABG pH (7.380-7.420) ABG pCO2 (38-42) mmHg ABG pO2 (61-120) mmHG ABG HCO3 (22-26) mmol/L ABG O2 Content (12.0-20.0) Vol % ABG Base Excess (-2-2) mmol/L ABG Methemoglobin (0-2) % Jamar Test Hemoglobin (12.0-16.0) G/DL Carboxyhemoglobin (0-4) % O2 Delivery Device Vent Setting Inspired O2 % Critical Value Sodium (136-145) meq/L Potassium 5.2 H (3.5-5.1) meq/L Chloride (98-107) meq/L Carbon Dioxide (21.0-32.0) meq/L Anion Gap (5-15) meq/L BUN (7-18) mg/dL Creatinine (0.60-1.30) mg/dL Estimated GFR (>89) mL/min POC Glucose 148 H (68-110) mg/dl Random Glucose (74-106) mg/dL Lactic Acid (0.4-2.0) mmol/L Calcium (8.5-10.1) mg/dL Prot Corrected Calcium (8.5-10.1) mg/dL Phosphorus (2.5-4.9) mg/dL Magnesium (1.5-2.5) mg/dL Total Bilirubin (0.2-1.0) mg/dL AST (15-37) U/L ALT (12-78) U/L Alkaline Phosphatase (45-117) U/L Ammonia (11-32) mcmol/L Total Creatine Kinase 586 H (39-308) U/L CK-MB (CK-2) 2.1 (0.5-3.6) ng/mL CK-MB (CK-2) % 0.4 (0.0-4.0) % Total Protein (6.4-8.2) g/dL Albumin (3.4-5.0) g/dL Lipase (73-393) U/L Beta-Hydroxybutyric Acd (0.00-0.39) mmol/L TSH (0.358-3.740) uIU/mL Free T4 (0.76-1.46) ng/dL Free T3 (2.18-3.98) pg/mL Urine Color (Yellw/Straw) Urine Clarity (Clear) Urine pH (5.0-8.5) Ur Specific [place] (1.002-1.035) Urine Protein (Neg-Trace) mg/dL Urine Glucose (UA) (Negative) mg/dL Urine Ketones (Negative) mg/dL Urine Occult Blood (Negative) Urine Nitrate (Negative) Urine Bilirubin (Negative) Urine Urobilinogen (Less than 2) mg/dL Ur Leukocyte Esterase (Negative) Urine RBC (0-3) /hpf Urine WBC (0-5) /hpf Ur Squamous Epith Cells (0-5) /hpf Urine Bacteria (None) /hpf Hyaline Casts (0-3) /lpf Urine Mucus (Occasional) /lpf Micro UA Comment Urine Culture Comments Nasal Screen MRSA (PCR) (Negative) Salicylates (2.8-20.0) mg/dL Urine Opiates Screen (Neg) Acetaminophen (10.0-30.0) mcg/mL Ur Barbiturates Screen (Neg) Ur Amphetamines Screen (Neg) U Benzodiazepines Scrn (Neg) Urine Cocaine Screen (Neg) U Cannabinoids Screen (Neg) Serum Alcohol (0-5) mg/dL 10/31/17 10/31/17 Range/Units 13:15 17:34 WBC (4.0-11.0) th/mm3 RBC (4.50-5.90) mil/mm3 Hgb (13.0-17.0) gm/dL Hct (39.0-51.0) % MCV (80.0-100.0) fL MCH (27.0-34.0) pg MCHC (32.0-36.0) % RDW (11.6-17.2) % Plt Count (150-450) th/mm3 MPV (7.0-11.0) fL Prelim Diff (Auto) Neut % (Auto) (16.0-70.0) % Lymph % (Auto) (9.0-44.0) % [place] % (Auto) (0.0-8.0) % Eos % (Auto) (0.0-4.0) % Baso % (Auto) (0.0-2.0) % Neut # (Auto) (1.8-7.7) th/mm3 Lymph # (Auto) (1.0-4.8) th/mm3 [place] # (Auto) (0.0-0.9) th/mm3 Eos # (Auto) (0.0-0.4) th/mm3 Baso # (Auto) (0.0-0.2) th/mm3 WBC Differential Seg Neuts % (Manual) (16-70) % Band Neuts % (Manual) (0-6) % Lymphocytes % (Manual) (9-44) % Monocytes % (Manual) (0-8) % Basophils % (Manual) (0-2) % Metamyelocytes % (Man) (0-1) % Abs Neuts (Manual) (1.8-7.7) th/mm3 Differential Comment Toxic Granulation (None) Toxic Vacuolation (None) Platelet Estimate (Normal) Platelet Morphology (Normal) Basophilic Stippling (None) PT (9.8-11.6) sec INR Ratio APTT (24.3-30.1) sec Fibrinogen (227-377) mg/dL Puncture Site Patient Temperature O2 Saturation (90-100) % ABG pH (7.380-7.420) ABG pCO2 (38-42) mmHg ABG pO2 (61-120) mmHG ABG HCO3 (22-26) mmol/L ABG O2 Content (12.0-20.0) Vol % ABG Base Excess (-2-2) mmol/L ABG Methemoglobin (0-2) % Jamar Test Hemoglobin (12.0-16.0) G/DL Carboxyhemoglobin (0-4) % O2 Delivery Device Vent Setting Inspired O2 % Critical Value Sodium (136-145) meq/L Potassium (3.5-5.1) meq/L Chloride (98-107) meq/L Carbon Dioxide (21.0-32.0) meq/L Anion Gap (5-15) meq/L BUN (7-18) mg/dL Creatinine (0.60-1.30) mg/dL Estimated GFR (>89) mL/min POC Glucose 94 (68-110) mg/dl Random Glucose (74-106) mg/dL Lactic Acid 5.3 H* (0.4-2.0) mmol/L Calcium (8.5-10.1) mg/dL Prot Corrected Calcium (8.5-10.1) mg/dL Phosphorus (2.5-4.9) mg/dL Magnesium (1.5-2.5) mg/dL Total Bilirubin (0.2-1.0) mg/dL AST (15-37) U/L ALT (12-78) U/L Alkaline Phosphatase (45-117) U/L Ammonia (11-32) mcmol/L Total Creatine Kinase (39-308) U/L CK-MB (CK-2) (0.5-3.6) ng/mL CK-MB (CK-2) % (0.0-4.0) % Total Protein (6.4-8.2) g/dL Albumin (3.4-5.0) g/dL Lipase (73-393) U/L Beta-Hydroxybutyric Acd (0.00-0.39) mmol/L TSH (0.358-3.740) uIU/mL Free T4 (0.76-1.46) ng/dL Free T3 (2.18-3.98) pg/mL Urine Color (Yellw/Straw) Urine Clarity (Clear) Urine pH (5.0-8.5) Ur Specific [place] (1.002-1.035) Urine Protein (Neg-Trace) mg/dL Urine Glucose (UA) (Negative) mg/dL Urine Ketones (Negative) mg/dL Urine Occult Blood (Negative) Urine Nitrate (Negative) Urine Bilirubin (Negative) Urine Urobilinogen (Less than 2) mg/dL Ur Leukocyte Esterase (Negative) Urine RBC (0-3) /hpf Urine WBC (0-5) /hpf Ur Squamous Epith Cells (0-5) /hpf Urine Bacteria (None) /hpf Hyaline Casts (0-3) /lpf Urine Mucus (Occasional) /lpf Micro UA Comment Urine Culture Comments Nasal Screen MRSA (PCR) (Negative) Salicylates (2.8-20.0) mg/dL Urine Opiates Screen (Neg) Acetaminophen (10.0-30.0) mcg/mL Ur Barbiturates Screen (Neg) Ur Amphetamines Screen (Neg) U Benzodiazepines Scrn (Neg) Urine Cocaine Screen (Neg) U Cannabinoids Screen (Neg) Serum Alcohol (0-5) mg/dL Imaging Data Radiologist's impression: Abdomen/Pelvis CT 10/30/17 17:35 CONCLUSION: 1. Mild colitis predominantly on the right side with trace free fluid and some inflammatory changes on the right. No bowel obstruction. No free air. 2. Multiple layering gallstones. 3. Subsegmental basilar airspace consolidation in the lungs. Differential diagnosis includes mild pneumonia. 4. Fatty liver enlarged to 25 cm. Chest X-Ray 10/30/17 17:35 CONCLUSION: Subsegmental basilar airspace disease, right greater than left. Differential diagnosis includes pneumonia and atelectasis, in patient with fever. Head CT 10/30/17 17:35 CONCLUSION: 1. No acute intracranial abnormalities. . Chest CTA 10/30/17 19:02 CONCLUSION: 1. Suboptimal bolus but no evidence for central pulmonary emboli. 2. Patchy airspace consolidation right lung base most characteristic of pneumonia. No significant effusion. Foot X-Ray 10/30/17 21:27 CONCLUSION: No acute findings. Mild degenerative change in the right foot. Prominent calcaneal bone spurs. Foot X-Ray 10/30/17 21:27 CONCLUSION: No acute findings. Moderate degenerative change. Bone spurs posterior calcaneus. Lumbar Spine CT 10/30/17 21:43 CONCLUSION: 1. No acute fracture. 2. 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 3. At L5-S1 there is a small central disc protrusion. Mild bilateral foraminal encroachment. Thoracic Spine CT 10/30/17 21:43 CONCLUSION: 1. Negative for acute traumatic injury to the thoracic spine. Small Schmorl's nodes in the lower thoracic spine. Foot MRI 10/31/17 00:00 CONCLUSION: 1. Lumbar Spine MRI 10/31/17 00:00 CONCLUSION: Extruded disc fragment with a donor site at L4-L5 lying posterior to the L4 vertebral body severe right-sided and moderate left-sided foraminal narrowing. There is no evidence of abscess. Sacrum/Coccyx MRI 10/31/17 00:00 CONCLUSION: 1. Negative MRI of the sacrum Chest X-Ray 10/31/17 01:38 CONCLUSION: 1. Interval intubation and placement of right internal jugular central venous line with no pneumothorax. 2. Placement of nasogastric tube. 3. Mid inspiratory study with crowding of the lung vasculature. ECG Data Attestation: I personally reviewed and interpreted this ECG as follows: Interpretation: The patient had an EKG done on arrival. The patient's EKG reveals a sinus tachycardia rate of 131, QRS duration is 85 ms, QTC [address] segment elevation is noted. Nonspecific ST-T wave abnormalities are noted, T waves are inverted in V1. Discharge Plan Discharge Disposition Patient Disposition: 30 Still Patient Discharge Condition Condition: Critical Discharge Details Diagnosis: Sepsis, PNA (pneumonia), Colitis, Alcohol abuse, Alcohol withdrawal syndrome, Hypomagnesemia, Coagulopathy Physicians Team ED Provider: Mable Vera ED Midlevel Provider: Sasha Ho Primary Care Provider: UNKNOWN, Attending Provider: Terra Abdullahi Other Providers: Michael Cordero ; Kaitlynn Segovia ; Collette Simms ; Filippo King Status ED Status: Left Department Discharge Information Discharge Date/Time: 10/30/17 23:01
--- NOTE | 2017-10-30 18:10 | XR ---
EXAM DATE: 10/30/2017 6:02 PM EDT AGE/SEX: 52 years / Male INDICATIONS: Fever. CLINICAL DATA: This is the patient's initial encounter. Patient reports that signs and symptoms have been present for 1 day and indicates a pain score of 0/10. MEDICAL/SURGICAL HISTORY: None. None. COMPARISON: No prior exams available for comparison. FINDINGS: Mild basilar airspace disease with elevated right hemidiaphragm. No effusion. No pneumothorax. No acu te bony abnormalities. CONCLUSION: Subsegmental basilar airspace disease, right greater than left. Differential diagnosis includes pneum onia and atelectasis, in patient with fever. Electronically signed by: Neeraj Hernandez MD 10/30/2017 6:09 PM EDT
[2017-10-30] MEDS ORDERED: Folic Acid Inj 1 MG/0.2 ML VIAL IM ONE (18:35)
[2017-10-30] MEDS ORDERED: Thiamine Inj 100 MG in Sodium Chlor 0.9% Inj 100 ML IV.SIG ONE (18:35)
[2017-10-30] MEDS ORDERED: Sod Chloride 0.9% Inj 1,000 ML IV.SIG ONE ×2 (18:35→23:50)
[2017-10-30 18:42] LABS: Baso % (Auto) 0.2 % (0.0-2.0); Hematocrit 39.2 % (39.0-51.0); Hemoglobin 13.1 gm/dL (13.0-17.0); Lymph # (Auto) 0.5 th/mm3 (1.0-4.8); Lymph % (Auto) 2.2 % (9.0-44.0); Mean Corpuscular HGB Conc 33.5 % (32.0-36.0); Mean Corpuscular Hemoglobin 35.1 pg (27.0-34.0); Mean Corpuscular Volume 104.6 fL (80.0-100.0); Mono # (Auto) 0.9 th/mm3 (0.0-0.9); Mono % (Auto) 3.7 % (0.0-8.0); Neut % (Auto) 93.9 % (16.0-70.0); Platelet Count 76 th/mm3 (150-450); Red Blood Count 3.74 mil/mm3 (4.50-5.90); Red Cell Distribution Width 13.9 % (11.6-17.2); White Blood Count 23.5 th/mm3 (4.0-11.0)
[2017-10-30 18:47] LABS: Activated Partial Thrombo Time 43.2 sec (24.3-30.1); INR 1.9 Ratio; Prothrombin Time 19.4 sec (9.8-11.6)
[2017-10-30 18:51] LABS: Bacteria,Urine Rare /hpf; Bilirubin,Urine Negative (Negative); Clarity,Urine Hazy (Clear); Color,Urine Amber (Yellw/Straw); Glucose,Urine (UA) 50 mg/dL (Negative); Hyaline Casts,Urine 6 /lpf (0-3); Leukocyte Esterase,Urine Negative (Negative); Mucus,Urine Few /lpf (Occasional); Nitrite,Urine Negative (Negative); Specific Gravity,Urine 1.017 (1.002-1.035); Squamous Epithelial Cell,Urine <1 /hpf (0-5); Urobilinogen,Urine 4 or Greater mg/dL (Less than 2)
[2017-10-30 18:56] LABS: Alanine Aminotransferase 39 U/L (12-78)
[2017-10-30 18:59] LABS: Alkaline Phosphatase 269 U/L (45-117); Total Protein 7.8 g/dL (6.4-8.2)
[2017-10-30 19:05] LABS: Albumin 2.6 g/dL (3.4-5.0); Anion Gap 18 meq/L (5-15); Aspartate Aminotransferase 174 U/L (15-37); Blood Urea Nitrogen 7 mg/dL (7-18); Calcium 7.8 mg/dL (8.5-10.1); Carbon Dioxide 19.5 meq/L (21.0-32.0); Chloride 98 meq/L (98-107); Glomerular Filtration Rate 56 mL/min (>89); Glucose,Random 260 mg/dL (74-106); Lipase 59 U/L (73-393); Magnesium 1.1 mg/dL (1.5-2.5); Sodium 135 meq/L (136-145)
[2017-10-30 19:11] LABS: Potassium 4.4 meq/L (3.5-5.1)
[2017-10-30] MEDS ORDERED: Vancomycin Inj 1 GM/200 ML PIGGYBACK IV.SIG ONE (19:22)
[2017-10-30] MEDS ORDERED: Piperacil/Tazo 3.375 GM Premix 50 ML IV.SIG ONE (19:22)
[2017-10-30] MEDS ORDERED: Mag Sulf 1 gm/100 ml Premix 100 ML IV.SIG ONE (19:25)
[2017-10-30 19:27] LABS: Metamyelocytes 1 % (0-1); Monocytes 5 % (0-8)
[2017-10-30 19:29] LABS: Platelet Morphology Normal (Normal); Toxic Vacuolation Present
--- NOTE | 2017-10-30 19:59 | CT ---
EXAM DATE: 10/30/2017 7:56 PM EDT AGE/SEX: 52 years / Male INDICATIONS: Altered mental status with frequent falls. CLINICAL DATA: This is the patient's initial encounter. Patient reports that signs and symptoms have been present for 1 day and indicates a pain score of 5/10. MEDICAL/SURGICAL HISTORY: None. Alcohol abuse None. RADIATION DOSE: 54.70 CTDI (mGy) COMPARISON: No prior exams available for comparison. TECHNIQUE: CT of the head without contrast. Using automated exposure control and adjustment of the mA and/or kV according to patient size, radiation dose was kept as low as reasonably achievable to ob tain optimal diagnostic quality images. DICOM format image data is available electronically for revi ew and comparison. FINDINGS: Cerebrum: The ventricles are normal for age. No evidence of midline shift, mass lesion, hemorrhage or acute infarction. No extraaxial fluid collections are seen. Posterior Fossa: The cerebellum and brainstem are intact. The 4th ventricle is midline. The cerebe llopontine angle is unremarkable. Extracranial: The visualized portion of the orbits is intact. Skull: The calvaria is intact. No evidence of skull fracture. CONCLUSION: 1. No acute intracranial abnormalities. . Electronically signed by: Neeraj Hernandez MD 10/30/2017 7:58 PM EDT
[2017-10-30] MEDS ORDERED: Vancomycin Inj 1,000 MG in Sodium Chlor 0.9% Inj 250 ML IV.SIG ONE (20:00)
--- NOTE | 2017-10-30 20:28 | CT ---
EXAM DATE: 10/30/2017 8:12 PM EDT AGE/SEX: 52 years / Male INDICATIONS: Diffuse abdomen pain today. CLINICAL DATA: This is the patient's initial encounter. Patient reports that signs and symptoms have been present for 1 day and indicates a pain score of 6/10. MEDICAL/SURGICAL HISTORY: None. None. ORAL CONTRAST: No oral contrast ingested. RADIATION DOSE: 28.66 CTDI (mGy) ; Patient body habitus COMPARISON: No prior exams available for comparison. TECHNIQUE: Multiple contiguous axial images were obtained through the abdomen and pelvis following b olus infusion of 100 ml Omnipaque 350 (iohexol) nonionic water-soluble contrast as a cumulative dos e for multiple exams. No oral contrast ingested. Using automated exposure control and adjustment of the mA and/or kV according to patient size, radiation dose was kept as low as reasonably achievable t o obtain optimal diagnostic quality images. DICOM format image data is available electronically for review and comparison. FINDINGS: There is subsegmental right basilar airspace disease. There is diffuse fatty infiltration of the liver which is enlarged to 25 cm in length. Spleen mildly prominent in size. Numerous calcified gallstones present. Adrenals, kidneys and pancreas unremarkable . There is mural thickening of predominantly the right colon extending into the transverse colon most c haracteristic of a mild colitis. There is a small amount of free fluid present in the right paracolic gutter. Some mild inflammatory changes are present around the right colon. CONCLUSION: 1. Mild colitis predominantly on the right side with trace free fluid and some inflammatory changes on the right. No bowel obstruction. No free air. 2. Multiple layering gallstones. 3. Subsegmental basilar airspace consolidation in the lungs. Differential diagnosis includes mild pn eumonia. 4. Fatty liver enlarged to 25 cm. Electronically signed by: Neeraj Hernandez MD 10/30/2017 8:27 PM EDT
--- NOTE | 2017-10-30 20:29 | CT ---
EXAM DATE: 10/30/2017 8:12 PM EDT AGE/SEX: 52 years / Male INDICATIONS: Pneumonia. Evaluate for emboli. CLINICAL DATA: This is the patient's initial encounter. Patient reports that signs and symptoms have been present for 1 day and indicates a pain score of 5/10. MEDICAL/SURGICAL HISTORY: None. Alcohol abuse None. RADIATION DOSE: 17.91 CTDI (mGy) ; Patient body habitus COMPARISON: No prior exams available for comparison. TECHNIQUE: Volumetric scanning was performed using a multi-row detector CT scanner during bolus infu shahram of 100 ml Omnipaque 350 (iohexol) nonionic water-soluble contrast as a cumulative dose for mult iple exams. The data was post processed with a variety of visualization algorithms including full vol ume maximum intensity projection and sliding thin slab reformation. Using automated exposure control and adjustment of the mA and/or kV according to patient size, radiation dose was kept as low as reas onably achievable to obtain optimal diagnostic quality images. DICOM format image data is available electronically for review and comparison. FINDINGS: No filling defects identified within the pulmonary arteries to suggest pulmonary embolic disease. Con trast bolus is suboptimal. There is patchy airspace consolidation in the right lung base most charact eristic of pneumonia. Minimal left basilar atelectasis. No pneumothorax or significant effusion. See abdomen CT for findings below the diaphragm. CONCLUSION: 1. Suboptimal bolus but no evidence for central pulmonary emboli. 2. Patchy airspace consolidation right lung base most characteristic of pneumonia. No significant ef fusion. Electronically signed by: Neeraj Hernandez MD 10/30/2017 8:28 PM EDT
--- NOTE | 2017-10-30 21:55 | P.HPCC ---
History of Present Illness Service: Critical care medicine Primary Care Physician: UNKNOWN Chief Complaint: Fever, back pain History of Present Illness: 52-year-old male with a past medical history of alcohol dependence who sought medical attention after a friend found him in the hotel room with fever and ill appearance after episode of binge drinking. Patient has multiple bruises and states he has been falling often which he attributes to poor footwear. His primary complaint is pain and tenderness of his sacrum and L4/L5 region. Denies IVDU. Denies CP, SOB, Cough, sputum production, urinary symptoms , abdominal pain, nausea, vomiting, headache, neck pain, neck stiffness. He does report some diarrhea, nonbloody, non melena and difficult to quantify. He says he has "always drank EtOH heavily, but it has been drinking more than usual over the last 2 weeks". He is tremulous, hypertensive, tachycardic with clinical appearance of EtOH withdrawal. ED workup included CT brain which is negative, CT chest with RLL consolidation, CT abd/pelvis with wall thickening c/ w colitis of ascending/transverse colon. WBC 23.5, lactic acid 11.4. In the ED he has received vancomycin, zosyn, NS 2 L bolus, magnesium sulfate 1 gram IV, Ativan 2 mg IV, Thiamine 100 mg IV, Ofirmev 1 gram IV. - Diagnosis (1) Septic shock (2) Respiratory failure requiring intubation (3) DIC (disseminated intravascular coagulation) (4) Alcohol dependence (5) Lactic acidemia (6) Colitis (7) Alcohol withdrawal syndrome (8) Hypomagnesemia (9) Coagulopathy Inpatient Certification: I certify that the inpatient services were ordered in accordance with Medicare regulations governing the order. This includes certification that hospital inpatient services are reasonable and necessary and in the case of services not specified as inpatient-only under 42 CFR 419.22(n), that they are appropriately provided as inpatient services in accordance to with the 2-midnight benchmark under 43 CFR 412.3(e) Review of Systems All other systems reviewed negative except as stated in HPI PMFSH - History History Provided By: Patient - Medical History Medical History: Medical History (Last Updated 10/31/17 @ 08:46 by Terra Abdullahi MD) EtOH dependence - Surgical History Surgical History: Surgical History (Last Updated 10/31/17 @ 08:47 by Terra Abdullahi MD) No pertinent past surgical history - Family History Family History: Family History (Last Updated 10/31/17 @ 08:48 by Terra Abdullahi MD) Uncle EtOH dependence Mother Breast cancer Father Leukemia Prostate cancer - Tobacco History Tobacco Use In Past 30 Days: Yes Smoking Status: Current every day smoker Tobacco Type: Smokeless Tobacco - Alcohol History How Often Do You Have a Drink Containing Alcohol: 4 or more times a week - Substance Use History Substance History: Unable to Obtain - Travel History Recent Travel in the [place] Within the Last 8 Weeks: No Recent Travel Out of the Country Within the Last 8 Weeks: No - Immunization History Tetanus Immunization: Unsure Hx Influenza Vaccine This Season: No Medications and Allergies Active Medications: Active Medications Sodium Chloride (Ns Inj) 1,000 mls @ 0 mls/hr IV.SIG .Q0M AAMDEO Last Infusion: 10/30/17 19:36 Dose: Infused Sodium Chloride (Ns Inj) 1,000 mls @ 0 mls/hr IV.SIG .Q0M AMADEO Last Infusion: 10/30/17 21:32 Dose: Infused Lactated Ringer's (Lr 1000 Ml Inj) 1,000 mls @ 125 mls/hr IV.CONT .Q8H AMADEO Allergies Allergy/AdvReac Type Severity Reaction Status Date / Time No Known Allergies Allergy Unverified 10/30/17 17:35 Home Medications Medication Instructions Recorded Confirmed Type No Known Home Medications 10/30/17 10/30/17 History Results - Labs CBC & Chem 7: 11/02/17 04:00 11/02/17 04:00 Labs: Short CBC 10/30/17 Range/Units 17:39 WBC 23.5 H (4.0-11.0) th/mm3 Hgb 13.1 (13.0-17.0) gm/dL Hct 39.2 (39.0-51.0) % Plt Count 76 L (150-450) th/mm3 BMP 10/30/17 17:39 Sodium 135 L Potassium 4.4 Chloride 98 Carbon Dioxide 19.5 L BUN 7 Creatinine 1.33 H Calcium 7.8 L Liver Function 10/30/17 Range/Units 17:39 Total Bilirubin 5.4 H (0.2-1.0) mg/dL AST 174 H (15-37) U/L ALT 39 (12-78) U/L Alkaline Phosphatase 269 H (45-117) U/L Albumin 2.6 L (3.4-5.0) g/dL Urine 10/30/17 Range/Units 17:45 Urine Color Ronel (Yellw/Straw) Urine Clarity Hazy H (Clear) Urine pH 5.0 (5.0-8.5) Ur Specific [place] 1.017 (1.002-1.035) Urine Protein Negative (Neg-Trace) mg/dL Urine Glucose (UA) 50 (Negative) mg/dL - Imaging Impressions Abdomen/Pelvis CT 10/30/17 17:35 CONCLUSION: 1. Mild colitis predominantly on the right side with trace free fluid and some inflammatory changes on the right. No bowel obstruction. No free air. 2. Multiple layering gallstones. 3. Subsegmental basilar airspace consolidation in the lungs. Differential diagnosis includes mild pneumonia. 4. Fatty liver enlarged to 25 cm. Chest X-Ray 10/30/17 17:35 CONCLUSION: Subsegmental basilar airspace disease, right greater than left. Differential diagnosis includes pneumonia and atelectasis, in patient with fever. Head CT 10/30/17 17:35 CONCLUSION: 1. No acute intracranial abnormalities. . Chest CTA 10/30/17 19:02 CONCLUSION: 1. Suboptimal bolus but no evidence for central pulmonary emboli. 2. Patchy airspace consolidation right lung base most characteristic of pneumonia. No significant effusion. Exam Vital signs: Vital Signs 10/30/17 17:14 10/30/17 17:28 10/30/17 18:21 Temperature 103 F H 101.2 F H Pulse Rate 131 H 136 H 130 H Respiratory Rate 20 22 22 Blood Pressure 129/58 L 122/78 Pulse Oximetry 95 95 96 10/30/17 18:48 Temperature Pulse Rate Respiratory Rate 22 Blood Pressure Pulse Oximetry Intake & Output 10/30/17 10/30/17 10/31/17 06:59 18:59 06:59 Intake Total 3250 / 3250 Balance 3250 / 3250 Weight 127.006 kg Intake: IV 3250 / 3250 Ofirmev Inj 1,000 mg In 100 ml 100 / 100 @ 400 mls/hr IV.SIG ONCE ONE Rx #:[id number] Magnesium Sulfate 1 gm/D5W 100 100 / 100 ml Premix 100 ML @ 100 mls/hr IV.SIG ONCE ONE Rx#:[id number] Zosyn 3.375 GM Premix 50 ML @ 50 / 50 100 mls/hr IV.SIG ONCE ONE Rx#: [id number] NS Inj 1,000 ML @ Wide Open IV. 3000 / 3000 SIG .Q0M [facility] Rx#:[id number] Narrative: GENERAL: Well-nourished, well-developed patient who is alert, talkative, tremulous. HEAD: Atraumatic. Normocephalic. EYES: Pupils equal and round, 4 mm and reactive bilaterally. Ecchymosis right upper eyelid. Subconjunctival hemorrhage on right lateral and inferior bulbar conjunctiva. ENT: No nasal bleeding or discharge. Mucous membranes dry. NECK: Trachea midline. No JVD. No meningismus CARDIOVASCULAR: Tachycardic, regular heart rate in 140s. No murmurs rubs or gallops. RESPIRATORY: TAchypneic, No accessory muscle use. Clear to auscultation with equal breath sounds bilaterally (upon initial exam). GASTROINTESTINAL: Abdomen obese and protuberant but soft, non-tender to palpation. No costovertebral angle tenderness per no rebound or guarding. Bowel sounds hypoactive. MUSCULOSKELETAL/SKIN: Extremities without clubbing, cyanosis, or edema. Wound over medial aspect of rit lower leg with venous stasis changes. There is erythema and warmth of dorsum of right 1st toe. There is ulceration on plantar aspect of left 1st toe, slightly smaller than size of a quarter with some fluctuance and tenderness, no exudate. Left 3rd toe with scaling, no appreciable warmth or erythema. DP pulses intact bilat. There is tenderness overlying upper sacrum and L4-L5. There is no overlying erythema or warmth. No crepitus NEUROLOGICAL: Awake and alert, oriented to self, year, hospital. No obvious cranial nerve deficits. Motor grossly within normal limits. Sensation intact in perineum/rectum. Follows commands with encouragement and great toe dorsiflexion and ankle plantar and dorsiflexion are 5/5. Septic Shock Reassessment Septic shock perfusion: reassessment completed Caprini VTE Risk Assessment Caprini VTE Risk Assessment: Moderate/High Risk (score >= 2) VTE Pharmacological Exception Reason: Coagulopathy,INR elevated Caprini Risk Assessment Model: Point Value = 1 Point Value = 2 Point Value = 3 Point Value = 5 Age 41-60 Minor surgery BMI > 25 kg/m2 Swollen legs Varicose veins or History of unexplained or recurrent spontaneous Oral contraceptives or hormone replacement Sepsis (< 1 month) Serious lung disease, including pneumonia (< 1 month) Abnormal pulmonary function Acute myocardial infarction Congestive heart failure (< 1 month) History of inflammatory bowel disease Medical patient at bed rest Age 61-74 Arthroscopic surgery Major open surgery (> 45 min) Laparoscopic surgery (> 45 min) Malignancy Confined to bed (> 72 hours) Immobilizing plaster cast Central venous access Age >= 75 History of VTE Family history of VTE Factor V Leiden Prothrombin [id number] Lupus anticoagulant Anticardiolipin antibodies Elevated serum homocysteine Heparin-induced thrombocytopenia Other congenital or acquired thrombophilia Stroke (< 1 month) Elective arthroplasty Hip, pelvis, or leg fracture Acute spinal cord injury (< 1 month) Prophylaxis Regimen: Total Risk Factor Score Risk Level Prophylaxis Regimen 0-1 Low Early ambulation 2 Moderate Order ONE of the following: *Sequential Compression Device (SCD) *Heparin 5000 units SQ BID 3-4 Higher Order ONE of the following medications: *Heparin 5000 units SQ TID *Enoxaparin/Lovenox 40 mg SQ daily (WT < 150 kg, CrCl > 30 mL/min) *Enoxaparin/Lovenox 30 mg SQ daily (WT < 150 kg, CrCl > 10-29 mL/min) *Enoxaparin/Lovenox 30 mg SQ BID (WT < 150 kg, CrCl > 30 mL/min) AND/OR *Sequential Compression Device (SCD) 5 or more Highest Order ONE of the following medications: *Heparin 5000 units SQ TID (Preferred with Epidurals) *Enoxaparin/Lovenox 40 mg SQ daily (WT < 150 kg, CrCl > 30 mL/min) *Enoxaparin/Lovenox 30 mg SQ daily (WT < 150 kg, CrCl > 10-29 mL/min) *Enoxaparin/Lovenox 30 mg SQ BID (WT < 150 kg, CrCl > 30 mL/min) AND *Sequential Compression Device (SCD) Assessment and Plan - Problem List (1) Septic shock Code(s): A41.9 - Sepsis, unspecified organism; R65.21 - Severe sepsis with septic shock Status: Deleted (2) Respiratory failure requiring intubation Code(s): J96.90 - Respiratory failure, unspecified, unspecified whether with hypoxia or hypercapnia Status: Deleted (3) DIC (disseminated intravascular coagulation) Code(s): D65 - Disseminated intravascular coagulation [defibrination syndrome] Status: Deleted (4) Alcohol dependence Code(s): F10.20 - Alcohol dependence, uncomplicated Status: Deleted (5) Lactic acidemia Code(s): E87.2 - Acidosis Status: Deleted (6) Colitis Code(s): K52.9 - Noninfective gastroenteritis and colitis, unspecified Status : Deleted (7) Alcohol withdrawal syndrome Code(s): F10.239 - Alcohol dependence with withdrawal, unspecified Status: Deleted (8) Hypomagnesemia Code(s): E83.42 - Hypomagnesemia Status: Deleted (9) Coagulopathy Code(s): D68.9 - Coagulation defect, unspecified Status: Deleted - Assessment and Plan Plan: NEURO: EtOH dependence Delirium tremens Hyperammonemia CT brain was negative for acute abnormality. He was initially alert and communicative. He had progressive tremors, tachycardia, hypertension and delirium consistent with alcohol withdrawal. Symptoms improved after Ativan 8 mg IV and precedex drip however he was not able to protect his airway and was intubated Propofol for sedation with target rest -2 and for control of DVTs. Ativan as needed per [facility] protocol. Continue Precedex for now. No clinical evidence of seizure the lactic acid remains elevated so will obtain EEG to look for subclinical seizure. Continue thiamine/folic acid/multivitamin IV Checked ammonia level which is mildly elevated. Will initiate lactulose once resuscitated and hemodynamics are improved. Back pain Pt's primary complaint is pain in sacrum and lumbar region. No e/o fracture. MRI to evaluate for discitis/epidural abscess. He denies IVDU. RESP: Acute respiratory failure Aspiration pneumonia Intubated 10/31 for airway protection. [place] Ventilator bundle CPAP trial and ventilator weaning when stabilized Antibiotics as per below CV: Septic shock Lactic acidemia Clinically appeared very volume depleted. Received 5 L of crystalloid in the form of bolus. We will continue LR at 1 50 mL/h. Levophed to maintain mean arterial pressure greater than 65. Trend lactic acid GI: Colitis Alcoholic hepatitis OG tube inserted in place to low intermittent wall suction following intubation. Normal-appearing GI secretions CT abdomen and pelvis demonstrates thickening of right colon extending into transverse colon. There is hepatomegaly and steatosis.. Clinical exam upon presentation was benign and did not appear c/w mesenteric ischemia. We will continue to monitor serial abdominal exams and lactic acid. Send stool for C. difficile. GI consult. FEN/RENAL: Acute kidney injury Hypomagnesemia Insert Argueta to monitor intake and output every hour in the setting of shock and acute kidney injury. Check phosphorus. Replace electrolytes as indicated per ICU electrolyte replacement protocol. ID: Septic shock Cellulitis toes bilaterally Aspiration pneumonia, right lower lobe, present on admission He received Zosyn and vancomycin in the emergency department. We will continue. Follow-up blood cultures. UA negative. Send sputum culture. Follow-up C diff, urine pneumococcal antigen, urine Legionella antigen. Obtain MRI bilat feet to evaluate for osteo. HEME: Coagulopathy DIC - Monitor coags/CBC/platelets. There is no significant active bleeding at this time, mild oozing at CVL insertion site. ENDO: Acute hyperglycemia ? undiagnosed diabetes mellitus. Will check hemoglobin A1c. Monitor bedside glucose and initiate sliding scale if indicated. Checked TSH which is low, check free T3/T4. PROPH: SCDs for DVT prophylaxis. Avoid pharmacologic DVT prophylaxis at this time due to coagulopathy. Famotidine for stress ulcer prophylaxis ACCESS: Right IJ central venous line placed 10/31 FULL CODE Patient is critically ill with acute delirium tremens with inadequate airway protection, septic shock with multiorgan dysfunction. He required intubation, central venous line, initiation of pressors to avoid further deterioration and . He remains at risk for further deterioration. No family contact info ,consult CM to assist. Critical care time 75 minutes exclusive of separately billable procedures (7) Alcohol withdrawal syndrome Qualifiers: Complication of substance-induced condition: with unspecified complication Qualified Code(s): F10.239 - Alcohol dependence with withdrawal, unspecified
[2017-10-30] MEDS ORDERED: LORazepam 1 MG Tablet PO PRN (21:56)
[2017-10-30] MEDS ORDERED: Haloperidol Inj 5 MG/ML Ampul IV.PUSH PRN (21:56)
[2017-10-30] MEDS ORDERED: Vancomycin Consult Pharmacy 1 EACH OTHER SCH (22:00)
--- NOTE | 2017-10-30 22:12 | XR ---
EXAM DATE: 10/30/2017 9:56 PM EDT AGE/SEX: 52 years / Male INDICATIONS: Right foot infection. CLINICAL DATA: This is the patient's initial encounter. Patient reports that signs and symptoms have been present for 1 day and indicates a pain score of Nonresponsive. MEDICAL/SURGICAL HISTORY: Non-responsive. Non-responsive. COMPARISON: No prior exams available for comparison. FINDINGS: Bony structures are intact and in normal alignment. Osseous density is normal. Soft tissues are unre markable. No radiopaque foreign bodies seen. Prominent bone spurs posterior calcaneus. CONCLUSION: No acute findings. Mild degenerative change in the right foot. Prominent calcaneal bone spurs. Electronically signed by: Neeraj Hernandez MD 10/30/2017 10:11 PM EDT
--- NOTE | 2017-10-30 22:13 | XR ---
EXAM DATE: 10/30/2017 9:56 PM EDT AGE/SEX: 52 years / Male INDICATIONS: Left foot infection. CLINICAL DATA: This is the patient's initial encounter. Patient reports that signs and symptoms have been present for 1 day and indicates a pain score of Nonresponsive. MEDICAL/SURGICAL HISTORY: Non-responsive. Non-responsive. COMPARISON: No prior exams available for comparison. FINDINGS: Bony structures are intact and in normal alignment. Osseous density is normal. Soft tissues are unre markable. No radiopaque foreign bodies seen. CONCLUSION: No acute findings. Moderate degenerative change. Bone spurs posterior calcaneus. Electronically signed by: Neeraj Hernandez MD 10/30/2017 10:11 PM EDT
[2017-10-30] MEDS ORDERED: Bisacodyl 10 MG Supp RECTAL PRN (22:16)
--- NOTE | 2017-10-30 22:56 | CT ---
EXAM DATE: 10/30/2017 10:43 PM EDT AGE/SEX: 52 years / Male INDICATIONS: Multiple Falls. Back pain. CLINICAL DATA: This is the patient's initial encounter. Patient reports that signs and symptoms have been present for 1 day and indicates a pain score of 6/10. MEDICAL/SURGICAL HISTORY: None. Alcohol abuse None. RADIATION DOSE: 20.90 CTDI (mGy) ; Reconstructed from previous dataset, no dose COMPARISON: No prior exams available for comparison. TECHNIQUE: Contiguous axial images were acquired using a multirow detector CT scanner after intraven ous administration of 95 ml Omnipaque 350 (iohexol) nonionic water-soluble contrast as a cumulative dose for multiple exams. Multiplanar reconstruction in the sagittal and coronal planes was performe d. Using automated exposure control and adjustment of the mA and/or kV according to patient size, ra diation dose was kept as low as reasonably achievable to obtain optimal diagnostic quality images. D ICOM format image data is available electronically for review and comparison. FINDINGS: There is no acute fracture or subluxation. No paravertebral soft tissue swelling. No significant can al or foraminal stenosis. Thoracolumbar junction is seen on lumbar spine CT. CONCLUSION: 1. Negative for acute traumatic injury to the thoracic spine. Small Schmorl's nodes in the lower tho racic spine. Electronically signed by: Neeraj Hernandez MD 10/30/2017 10:55 PM EDT
--- NOTE | 2017-10-30 22:59 | CT ---
EXAM DATE: 10/30/2017 10:48 PM EDT AGE/SEX: 52 years / Male INDICATIONS: Multiple falls. Back pain. CLINICAL DATA: This is the patient's initial encounter. Patient reports that signs and symptoms have been present for 1 day and indicates a pain score of 6/10. MEDICAL/SURGICAL HISTORY: None. Alcohol abuse None. RADIATION DOSE: 20.90 CTDI (mGy) ; Reconstructed from previous dataset, no dose COMPARISON: No prior exams available for comparison. TECHNIQUE: Contiguous axial images were acquired with a multirow detector CT scanner after intraveno us administration of 95 ml Omnipaque 350 (iohexol) nonionic water-soluble contrast as a cumulative d ose for multiple exams. Multiplanar reconstructions in the sagittal and coronal plane were also perf ormed. Using automated exposure control and adjustment of the mA and/or kV according to patient size, radiation dose was kept as low as reasonably achievable to obtain optimal diagnostic quality images. DICOM format image data is available electronically for review and comparison. FINDINGS: There is a grade 1 anterolisthesis of L4 on L5 with bilateral pars defects present. No acute fracture is identified. There is mild lateral recess and foraminal stenosis bilaterally at L4-5. At L5-S1 there is a small central disc protrusion without significant canal stenosis. CONCLUSION: 1. No acute fracture. 2. 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 3. At L5-S1 there is a small central disc protrusion. Mild bilateral foraminal encroachment. Electronically signed by: Neeraj Hernandez MD 10/30/2017 10:58 PM EDT
[2017-10-30] MEDS ORDERED: Potassium Chlor 40 mEq Premix 40 MEQ/100 ML PIGGYBACK IV.SIG PRN ×2 (23:03)
[2017-10-30] MEDS ORDERED: Potassium Chloride 25 MEQ Effervescent Tablet PO PRN (23:03)
[2017-10-30] MEDS ORDERED: Magnesium Sulfate Inj 4 GM in Sodium Chlor 0.9% Inj 92 ML IV.SIG PRN (23:03)
[2017-10-30] MEDS ORDERED: Potassium Phosphate 500 MG Soluble Tablet PO PRN ×2 (23:03)
[2017-10-30] MEDS ORDERED: Sodium Phosphate Inj 30 MMOL in Sodium Chlor 0.9% Inj 250 ML IV.SIG PRN (23:03)
[2017-10-30] MEDS ORDERED: Potassium Phosphate Inj 30 MMOL in Sodium Chlor 0.9% Inj 250 ML IV.SIG PRN (23:03)
[2017-10-30] MEDS ORDERED: Potassium Chlor 20 mEq Premix 20 MEQ/100 ML PIGGYBACK IV.SIG PRN ×2 (23:03)
[2017-10-30] MEDS ORDERED: Magnesium Oxide 400 MG Tablet PO PRN (23:03)
[2017-10-30] MEDS ORDERED: Magnesium Sulfate Inj 2 GM in Sodium Chlor 0.9% Inj 96 ML IV.SIG PRN (23:03)
[2017-10-30] MEDS ORDERED: Dexmedetomidine Inj 200 MCG in Sodium Chlor 0.9% Inj 48 ML IV.CONT PRN (23:25)
[2017-10-30] MEDS: Heparin - SQ 10,000 UNITS/ML Vial SQ SCH (23:31)
[2017-10-30 23:51] LABS: Phosphorus 1.2 mg/dL (2.5-4.9)
[2017-10-30] MEDS ORDERED: Etomidate Inj 20 MG/10 ML Ampul IV.PUSH ONE (23:55)
[2017-10-31] MEDS: Propofol 1000 mg/100 ml Inj 1,000 MG/100 ML BOTTLE IV.CONT PRN ×4 (00:55→21:08)
--- NOTE | 2017-10-31 01:44 | P.PCN ---
Date of procedure: 10/31/17 Pre-op diagnosis: Respiratory failure, unable to protect airway Post-op diagnosis: same Procedure: PROCEDURE NOTE PROCEDURE: Endotracheal intubation INDICATION: Patient with respiratory distress and stridorous breath sounds. DETAILS OF PROCEDURE: The patient was placed in optimal position and preoxygenated with 100% FiO2 via NR. Oximeter oxygen saturation of 98% was obtained prior to t laryngoscopy. The patient was administered Etomidate 20 mg IV and rocuronium 50 mg IV for sedation. Laryngoscopy was performed with a 4 Glidescope blade and there was a large mass of green inspissated secretions overlying the glottis. This was suctioned from the oropharynx. After suctioning, a Grade I Cormack-Lehane view was obtained. On single attempt a size 8.0 endotracheal tube was visualized passing through the cords. Correct placement was confirmed with colorimetric CO2 detector. Breath sounds were equal bilaterally. No sounds auscultated over the stomach. The endotracheal tube was secured with a commercial tube chun at a depth of 26 cm at the lips. The patient was connected to the ventilator. The patient tolerated the procedure well without any apparent complication. Stat chest x-ray was ordered.
[2017-10-31] MEDS ORDERED: Dexmedetomidine Inj 1,000 MCG in Sodium Chlor 0.9% Inj 240 ML IV.CONT PRN (01:45)
[2017-10-31 02:19] LABS: Amphetamine Screen,Urine Neg (Neg); Barbiturate Screen,Urine Neg (Neg); Cannabinoid Screen,Urine Neg (Neg); Cocaine Screen,Urine Neg (Neg)
[2017-10-31 02:20] LABS: Opiate Screen,Urine Neg (Neg)
--- NOTE | 2017-10-31 02:25 | XR ---
EXAM DATE: 10/31/2017 2:12 AM EDT AGE/SEX: 52 years / Male INDICATIONS: Central line placement. CLINICAL DATA: This is the patient's subsequent encounter. Patient reports that signs and symptoms h ave been present for 4 - 6 days and indicates a pain score of 5/10. MEDICAL/SURGICAL HISTORY: Alzheimer's disease. Non-responsive. COMPARISON: C, CHEST 1V SINGLE AP, 10/30/2017. . FINDINGS: A single AP portable semierect view of the chest was obtained and demonstrates interval placement of endotracheal tube with tip 3 cm above the margot. Nasogastric tube is seen coursing through the esoph michoacano into the stomach. There is been placement of a right internal jugular central venous line with t he tip projected over the superior vena cava. There is no pneumothorax. The study remains mid inspira tory with crowding of the lung vasculature. CONCLUSION: 1. Interval intubation and placement of right internal jugular central venous line with no pneumotho rax. 2. Placement of nasogastric tube. 3. Mid inspiratory study with crowding of the lung vasculature. Electronically signed by: Cosmo Pope MD 10/31/2017 2:23 AM EDT
--- NOTE | 2017-10-31 02:31 | P.PCN ---
Date of procedure: 10/31/17 Procedure: DATE: 10/31/17 CENTRAL LINE PLACEMENT: Right internal jugular vein. INDICATION: Central venous access CONSENT Procedure was performed emergently as patient is not capacitated for medical decision-making. There is no family contact. He is hypotensive and in need of vasopressors and it is in his best interest to proceed with central venous line access DESCRIPTION OF THE PROCEDURE The patient was placed in supine position, mild Trendelenburg. The skin was cleansed with Chloraprep x3. Additional barrier precautions included large sterile drape, sterile gloves, sterile gown, face mask, and hat. 1 % lidocaine was used for local anesthesia. Under direct ultrasound guidance and on single attempt, the vein was accessed with an introducer needle. The guide wire was advanced and the tract was dilated. Using Seldinger technique a 7 Hungarian 20 cm antimicrobial coated triple-lumen catheter was advanced to a depth of 17 centimeters. The guide wire was removed. All ports had good return of dark venous blood and flushed easily with saline. The central line was secured with 2.0 silk as Stat lock would not adhere adequately. . A sterile dressing with antibiotic disc was applied. ESTIMATED BLOOD LOSS: Minimal COMPLICATIONS: No apparent complications. STAT chest x-ray and straight satisfactory central venous line position without apparent complication
[2017-10-31 02:40] LABS: ABG Base Excess -6.4 mmol/L (-2-2); ABG PCO2 37 mmHg (38-42); ABG PO2 83 mmHG (61-120)
[2017-10-31] MEDS: Piperacil/Tazo 3.375 GM Premix 50 ML IV.SIG SCH ×4 (03:08→21:06)
[2017-10-31] MEDS: Norepinephrine Inj 4 MG in Sodium Chlor 0.9% Inj 246 ML IV.SIG PRN ×3 (03:11→18:20)
[2017-10-31] MEDS ORDERED: Chlorhexidine Gluconate 2% 1 Pack (2 Cloths) TOPICAL PRN (04:00)
[2017-10-31 04:43] LABS: Baso # (Auto) 0.1 th/mm3 (0.0-0.2); Baso % (Auto) 0.6 % (0.0-2.0); Hematocrit 38.7 % (39.0-51.0); Hemoglobin 12.8 gm/dL (13.0-17.0); Lymph # (Auto) 0.2 th/mm3 (1.0-4.8); Mean Corpuscular HGB Conc 33.1 % (32.0-36.0); Mean Corpuscular Hemoglobin 34.6 pg (27.0-34.0); Mean Corpuscular Volume 104.6 fL (80.0-100.0); Mean Platelet Volume 9.8 fL (7.0-11.0); Mono # (Auto) 0.7 th/mm3 (0.0-0.9); Mono % (Auto) 2.9 % (0.0-8.0); Neut # (Auto) 22.8 th/mm3 (1.8-7.7); Neut % (Auto) 95.5 % (16.0-70.0); Platelet Count 70 th/mm3 (150-450); Red Cell Distribution Width 14.7 % (11.6-17.2); White Blood Count 23.8 th/mm3 (4.0-11.0)
[2017-10-31 04:45] LABS: INR 2.1 Ratio; Prothrombin Time 20.8 sec (9.8-11.6)
[2017-10-31] MEDS: Oral Hygiene Kit OROPHARYNG SCH ×3 (05:10→16:27)
[2017-10-31] MEDS: Chlorhexidine Gluconate 2% 1 Pack (2 Cloths) TOPICAL SCH (05:10)
[2017-10-31 05:20] LABS: Albumin 2.5 g/dL (3.4-5.0); Calcium 7.1 mg/dL (8.5-10.1); Carbon Dioxide 23.2 meq/L (21.0-32.0); Free T4 (Free Thyroxine) 1.28 ng/dL (0.76-1.46); Magnesium 1.2 mg/dL (1.5-2.5); Phosphorus 3.4 mg/dL (2.5-4.9); Potassium 5.4 meq/L (3.5-5.1); Total Protein 7.3 g/dL (6.4-8.2); Triiodothyronine (T3) Free 1.57 pg/mL (2.18-3.98)
[2017-10-31] MEDS: Vancomycin Inj 1,700 MG in Sodium Chlor 0.9% Inj 500 ML IV.SIG SCH ×2 (06:17→17:36)
[2017-10-31 06:37] LABS: Lymphocytes 1 % (9-44); Metamyelocytes 4 % (0-1); Monocytes 1 % (0-8)
[2017-10-31 06:38] LABS: Toxic Granulation 1+; Toxic Vacuolation Present
[2017-10-31] MEDS: Chlorhexidine 0.12% Oral Kit 15 ML UDC OROPHARYNG SCH ×2 (08:02→21:07)
[2017-10-31] MEDS: Senna/Docusate Sodium 8.6/50 MG Tablet PO SCH ×2 (08:02→21:08)
[2017-10-31] MEDS ORDERED: Dextrose 50% in Water 50 ML Vial IV.PUSH ONE (08:28)
--- NOTE | 2017-10-31 08:51 | ECG ---
Date Performed: 10/30/2017 Time Performed: 17:33:05 PTAGE: 52 years EKG: SINUS TACHYCARDIA ABNORMAL RHYTHM ECG NO PREVIOUS TRACING DOCTOR: Durga Montaño Interpretating Date/Time 10/31/2017 08:50:33
[2017-10-31] MEDS ORDERED: Famotidine PF Inj 20 MG/2 ML Vial IV.PUSH SCH (09:00)
--- NOTE | 2017-10-31 09:22 | P.CONGI ---
History of Present Illness Consult date: 10/31/17 Consult reason: Diarrhea, ETOH Chief complaint: Sepsis, Alcohol W/D, Hypomagnesemia, PNA, Colitis History of Present Illness: This is a 52 yo M who was brought in to the ER after being found in his hotel room by his friend with blood on his face and toes, in the ER he was found to be febrile and is currently being treated for septic shock with unknown source although is noted to have cellulitis on his feet and colitis on CT. Pt reportedly had been binge drinking since Monday and began going into withdrawals , so was intubated for airway protection. Pt is currently intubated and sedated , however was responsive on arrival and therefore Dr. Abdullahi (instrument mechanic weapons system) was able to obtain some history from patient. All of my history has been obtained through chart review and discussion with Dr. Abdullahi. Our service has been consulted to evaluate pt for CT findings of colitis. Pt reported having diarrhea, unsure how much or for how long, he did denied hematochezia and melena. Pts main complaint on arrival was a lower back pain, he denied any abdominal pain and was not tender on exam. Unsure if he has had colonoscopy in the past, no previous records at this hospital. <Abigail Murillo - Last Filed: 10/31/17 09:06> Review of Systems unobtainable due to endotracheal tube, unobtainable due to mental status <Abigail Murillo - Last Filed: 10/31/17 09:06> [facility] - History History Provided By: Patient - Medical History Medical History: Medical History (Last Updated 10/31/17 @ 08:46 by Terra Abdullahi MD) EtOH dependence - Surgical History Surgical History: Surgical History (Last Updated 10/31/17 @ 08:47 by Terra Abdullahi MD) No pertinent past surgical history - Family History Family History: Family History (Last Updated 10/31/17 @ 08:48 by Terra Abdullahi MD) Uncle EtOH dependence Mother Breast cancer Father Prostate cancer Leukemia - Tobacco History Tobacco Use In Past 30 Days: Yes Smoking Status: Current every day smoker Tobacco Type: Smokeless Tobacco - Alcohol History How Often Do You Have a Drink Containing Alcohol: 4 or more times a week - Substance Use History Substance History: Unable to Obtain - Travel History Recent Travel in the [facility] Within the Last 8 Weeks: No Recent Travel Out of the Country Within the Last 8 Weeks: No - Immunization History Tetanus Immunization: Unsure Hx Influenza Vaccine This Season: No <BibcharlesAbigail - Last Filed: 10/31/17 09:06> - Medical History Medical History: Medical History (Last Updated 10/31/17 @ 08:46 by Terra Abdullahi MD) EtOH dependence - Surgical History Surgical History: Surgical History (Last Updated 10/31/17 @ 08:47 by Terra Abdullahi MD) No pertinent past surgical history - Family History Family History: Family History (Last Updated 10/31/17 @ 08:48 by Terra Abdullahi MD) Uncle EtOH dependence Mother Breast cancer Father Prostate cancer Leukemia <Michael Cordero - Last Filed: 10/31/17 13:25> Medications and Allergies Active Medications: Active Medications Al Hydroxide/Mg Hydroxide (Milk Of Magnesia Liq) 30 ml PO Q12H PRN PRN Reason: Mild Constipation Bisacodyl (Dulcolax Supp) 10 mg RECTAL DAILY PRN PRN Reason: SEVERE CONSITIPATION Chlorhexidine Gluconate (Chlorhexidine 2% Cloth) 3 pack TOPICAL DAILY@0400 [facility], [facility] Stop: 11/05/17 03:59 Last Admin: 10/31/17 05:10 Dose: 3 pack Chlorhexidine Gluconate (Chlorhexidine 2% Cloth) 3 pack TOPICAL DAILY@0400 PRN PRN Reason: Extra cloth needed Stop: 11/05/17 03:59 Chlorhexidine Gluconate (Peridex 0.12% Oral Kit) 15 ml OROPHARYNG BID@0800, 2000 [facility], [facility] Last Admin: 10/31/17 08:02 Dose: 15 ml Famotidine (Pepcid Pf Inj) 20 mg IV.PUSH Q12HR [facility], [facility] Last Admin: 10/31/17 08:01 Dose: 20 mg Haloperidol Lactate (Haldol Inj) 1 mg IV.PUSH Q15M PRN PRN Reason: for severe agitation Last Admin: 10/30/17 23:32 Dose: 1 mg Heparin Sodium (Porcine) (Heparin Inj) 5,000 units SQ Q12H [facility], [facility] Last Admin: 10/30/17 23:31 Dose: 5,000 units Sodium Chloride (Ns Inj) 1,000 mls @ 0 mls/hr IV.SIG .Q0M [facility], [facility] Last Infusion: 10/30/17 19:36 Dose: Infused Sodium Chloride (Ns Inj) 1,000 mls @ 0 mls/hr IV.SIG .Q0M [facility], [facility] Last Infusion: 10/30/17 21:32 Dose: Infused Lactated Ringer's (Lr 1000 Ml Inj) 1,000 mls @ 150 mls/hr IV.CONT .Q6H40M [facility], [facility] Last Admin: 10/31/17 08:01 Dose: 125 mls/hr Pharmacy Profile Note (Vancomycin Consult Pharmacy) 0 mls @ 0 mls/hr OTHER UNSCH [facility], [facility] Piperacillin/Tazobactam/Dextrose (Zosyn 3.375 Gm Premix) 50 mls @ 100 mls/hr IV.SIG Q6H [facility], [facility] Last Admin: 10/31/17 08:00 Dose: 100 mls/hr Multivitamins 10 ml/ Thiamine HCl 100 mg/ Folic Acid 1 mg/Sodium Chloride 511.2 mls @ 127.8 mls/hr IV.SIG Q24H [facility] Vancomycin HCl 1,700 mg/ (Sodium Chloride) 517 mls @ 250 mls/hr IV.SIG Q12H [facility], [facility] Last Admin: 10/31/17 06:17 Dose: 250 mls/hr Magnesium Sulfate Inj 4 gm/ (Sodium Chloride) 100 mls @ 50 mls/hr IV.SIG UNSCH PRN PRN Reason: For Magnesium 0.9 - 1.1 mg/dL Magnesium Sulfate Inj 2 gm/ (Sodium Chloride) 100 mls @ 50 mls/hr IV.SIG UNSCH PRN PRN Reason: For Magnesium 1.2 - 1.6 mg/dL Potassium Chloride (Kcl 40 Meq Premix Inj) 40 meq in 100 mls @ 25 mls/hr IV.SIG Q2H PRN PRN Reason: For Potassium 2.8 - 3.2 mEq/L Potassium Chloride (Kcl 40 Meq Premix Inj) 40 meq in 100 mls @ 25 mls/hr IV.SIG UNSCH PRN PRN Reason: For Potassium 3.3 - 3.5 mEq/L Potassium Chloride (Kcl 20 Meq Premix Inj) 20 meq in 100 mls @ 50 mls/hr IV.SIG Q2H PRN PRN Reason: For Potassium 2.8 - 3.2 mEq/L Potassium Phosphate 30 mmol/ (Sodium Chloride) 260 mls @ 42 mls/hr IV.SIG UNSCH PRN PRN Reason: SEE LABEL COMMENTS Potassium Chloride (Kcl 20 Meq Premix Inj) 20 meq in 100 mls @ 50 mls/hr IV.SIG Q2H PRN PRN Reason: For Potassium 3.3 - 3.5 mEq/L Sodium Phosphate 30 mmol/ (Sodium Chloride) 260 mls @ 42 mls/hr IV.SIG UNSCH PRN PRN Reason: For Phosphorus < 2.5 mg/dL Propofol (Diprivan 1000 Mg/100 Ml Inj) 1,000 mg in 100 mls @ 3.81 mls/hr IV.CONT TITRATE PRN; Protocol PRN Reason: Per Protocol Last Titration: 10/31/17 07:54 Dose: 10 mcg/kg/min, 7.62 mls/hr Dexmedetomidine HCl 1,000 mcg/ (Sodium Chloride) 250 mls @ 6.35 mls/hr IV.CONT TITRATE PRN; Protocol PRN Reason: Per Protocol Norepinephrine Bitartrate 4 mg (/ Sodium Chloride) 250 mls @ 7.5 mls/hr IV.SIG TITRATE PRN; Protocol PRN Reason: Per Protocol Last Titration: 10/31/17 08:05 Dose: 7 mcg/min, 26.25 mls/hr Magnesium Sulfate/Dextrose (Magnesium Sulfate 1 Gm/D5w 100 Ml Premix) 100 mls @ 100 mls/hr IV.SIG Q1H [place] Stop: 10/31/17 10:27 Magnesium Sulfate/Dextrose (Magnesium Sulfate 1 Gm/D5w 100 Ml Premix) 100 mls @ 100 mls/hr IV.SIG ONCE ONE Stop: 10/31/17 10:59 Calcium Chloride 1 gm/ Sodium (Chloride) 110 mls @ 110 mls/hr IV.SIG ONCE ONE Stop: 10/31/17 10:59 Lactulose (Lactulose Liq) 30 ml PO DAILY PRN PRN Reason: SEVERE CONSITIPATION Lorazepam (Ativan) 1 mg PO Q4H PRN PRN Reason: for CIWA 8-10 Lorazepam (Ativan) 2 mg PO Q2H PRN PRN Reason: for CIWA 11-14 Lorazepam (Ativan Inj) 2 mg IV.PUSH Q2H PRN PRN Reason: for CIWA 11-14 Last Admin: 10/30/17 23:25 Dose: 2 mg Lorazepam (Ativan Inj) 2 mg IV.PUSH Q15M PRN PRN Reason: for CIWA > 20 Lorazepam (Ativan Inj) 1 mg IV.PUSH Q4H PRN PRN Reason: for CIWA 8-10 Lorazepam (Ativan Inj) 2 mg IV.PUSH Q1H PRN PRN Reason: for CIWA 15-20 Magnesium Oxide (Mag-Ox) 800 mg PO UNSCH PRN PRN Reason: For Magnesium 1.2 - 1.6 mg/dL Miscellaneous Information ([facility] Ordered Lab Info) 0 each OTHER ONCE ONE Stop: 11/01/17 05:46 Potassium Bicarb/Potassium Chloride (K-Lyte Cl Eff) 50 meq PO UNSCH PRN PRN Reason: For Potassium 3.3 - 3.5 mEq/L Potassium Phosphate (K-Phos Original) 2,000 mg PO Q4H PRN PRN Reason: Phosphorus Less Than 2.5 mg/dL Potassium Phosphate (K-Phos Original) 2,000 mg PO UNSCH PRN PRN Reason: SEE LABEL COMMENTS Senna/Docusate Sodium (Leatha-Colace) 1 tab PO BID [facility] Last Admin: 10/31/17 08:02 Dose: 1 tab Sennosides (Senokot) 17.2 mg PO Q12H PRN PRN Reason: Moderate Constipation Sodium Chloride (Ns Flush) 2 ml IV.FLUSH BID [facility] Last Admin: 10/31/17 08:02 Dose: 2 ml Sodium Chloride (Ns Flush) 2 ml IV.FLUSH PRN PRN PRN Reason: FLUSH AFTER USING IV ACCESS Terbutaline Sulfate (Brethine Inj) 1 mg SQ UNSCH PRN PRN Reason: For Extravasation <Abigail Murillo - Last Filed: 10/31/17 09:06> Active Medications: Active Medications Acetaminophen (Tylenol Liq) 650 mg PO Q8H PRN PRN Reason: FEVER Al Hydroxide/Mg Hydroxide (Milk Of Magnesia Liq) 30 ml PO Q12H PRN PRN Reason: Mild Constipation Albuterol (Duoneb Neb ([place])) 1 ampul NEB Q4HR NEB [facility], [facility] Albuterol (Albuterol Neb (Prn)) 2.5 mg NEB Q2HR NEB PRN PRN Reason: DYSPNEA Artificial Tears (Genteal Severe Dry Eye Relief 0.3% Opth Gel) 1 drops EACH EYE BID [facility], [facility] Bisacodyl (Dulcolax Supp) 10 mg RECTAL DAILY PRN PRN Reason: SEVERE CONSITIPATION Chlorhexidine Gluconate (Chlorhexidine 2% Cloth) 3 pack TOPICAL DAILY@0400 [facility]1983 Stop: 11/05/17 03:59 Last Admin: 10/31/17 05:10 Dose: 3 pack Chlorhexidine Gluconate (Chlorhexidine 2% Cloth) 3 pack TOPICAL DAILY@0400 PRN PRN Reason: Extra cloth needed Stop: 11/05/17 03:59 Chlorhexidine Gluconate (Peridex 0.12% Oral Kit) 15 ml OROPHARYNG BID@0800, 1999 [facility], [facility] Last Admin: 10/31/17 08:02 Dose: 15 ml Dextrose (D50w Vial) 50 ml IV.PUSH UNSCH PRN PRN Reason: PER HYPOGLYCEMIA PROTOCOL Glucagon (Glucagon Inj) 1 mg OTHER PRN PRN PRN Reason: for Hypoglycemia Protocol Sodium Chloride (Ns Inj) 1,000 mls @ 0 mls/hr IV.SIG .Q0M [facility], [facility] Last Infusion: 10/30/17 19:36 Dose: Infused Sodium Chloride (Ns Inj) 1,000 mls @ 0 mls/hr IV.SIG .Q0M [facility], [facility] Last Infusion: 10/30/17 21:32 Dose: Infused Lactated Ringer's (Lr 1000 Ml Inj) 1,000 mls @ 150 mls/hr IV.CONT .Q6H40M [facility], [facility] Last Admin: 10/31/17 08:01 Dose: 125 mls/hr Pharmacy Profile Note (Vancomycin Consult Pharmacy) 0 mls @ 0 mls/hr OTHER UNSCH [facility], [facility]1983 Piperacillin/Tazobactam/Dextrose (Zosyn 3.375 Gm Premix) 50 mls @ 100 mls/hr IV.SIG Q6H [facility], [facility] Last Admin: 10/31/17 08:00 Dose: 100 mls/hr Multivitamins 10 ml/ Thiamine HCl 100 mg/ Folic Acid 1 mg/Sodium Chloride 511.2 mls @ 127.8 mls/hr IV.SIG Q24H [facility], [facility] Stop: 11/03/17 22:59 Vancomycin HCl 1,700 mg/ (Sodium Chloride) 517 mls @ 250 mls/hr IV.SIG Q12H [facility], [facility] Last Admin: 10/31/17 06:17 Dose: 250 mls/hr Magnesium Sulfate Inj 4 gm/ (Sodium Chloride) 100 mls @ 50 mls/hr IV.SIG UNSCH PRN PRN Reason: For Magnesium 0.9 - 1.1 mg/dL Magnesium Sulfate Inj 2 gm/ (Sodium Chloride) 100 mls @ 50 mls/hr IV.SIG UNSCH PRN PRN Reason: For Magnesium 1.2 - 1.6 mg/dL Potassium Chloride (Kcl 40 Meq Premix Inj) 40 meq in 100 mls @ 25 mls/hr IV.SIG Q2H PRN PRN Reason: For Potassium 2.8 - 3.2 mEq/L Potassium Chloride (Kcl 40 Meq Premix Inj) 40 meq in 100 mls @ 25 mls/hr IV.SIG UNSCH PRN PRN Reason: For Potassium 3.3 - 3.5 mEq/L Potassium Chloride (Kcl 20 Meq Premix Inj) 20 meq in 100 mls @ 50 mls/hr IV.SIG Q2H PRN PRN Reason: For Potassium 2.8 - 3.2 mEq/L Potassium Phosphate 30 mmol/ (Sodium Chloride) 260 mls @ 42 mls/hr IV.SIG UNSCH PRN PRN Reason: SEE LABEL COMMENTS Potassium Chloride (Kcl 20 Meq Premix Inj) 20 meq in 100 mls @ 50 mls/hr IV.SIG Q2H PRN PRN Reason: For Potassium 3.3 - 3.5 mEq/L Sodium Phosphate 30 mmol/ (Sodium Chloride) 260 mls @ 42 mls/hr IV.SIG UNSCH PRN PRN Reason: For Phosphorus < 2.5 mg/dL Propofol (Diprivan 1000 Mg/100 Ml Inj) 1,000 mg in 100 mls @ 3.81 mls/hr IV.CONT TITRATE PRN; Protocol PRN Reason: Per Protocol Last Admin: 10/31/17 12:02 Dose: 25 mcg/kg/min, 19.05 mls/hr Norepinephrine Bitartrate 4 mg (/ Sodium Chloride) 250 mls @ 7.5 mls/hr IV.SIG TITRATE PRN; Protocol PRN Reason: Per Protocol Last Admin: 10/31/17 12:19 Dose: 7 mcg/min, 26.25 mls/hr Fentanyl (Fentanyl 10 Mcg/Ml Premix Drip) 2,500 mcg in 250 mls @ 5 mls/hr IV.SIG TITRATE PRN; Protocol PRN Reason: Per Protocol Phytonadione 10 mg/ Sodium (Chloride) 51 mls @ 102 mls/hr IV.SIG ONCE ONE Stop: 10/31/17 15:29 Insulin Aspart (Novolog Insulin Correctional Sugar Inj) 0 unit SQ Q6HR [facility], [facility]; Protocol Lactulose (Lactulose Liq) 30 ml PO DAILY PRN PRN Reason: SEVERE CONSITIPATION Lactulose (Lactulose Liq) 30 ml PO BID [facility] Lansoprazole (Prevacid Solutab) 30 mg NG/OG DAILY [facility] Lorazepam (Ativan) 1 mg PO Q4H PRN PRN Reason: for CIWA 8-10 Lorazepam (Ativan) 2 mg PO Q2H PRN PRN Reason: for CIWA 11-14 Magnesium Oxide (Mag-Ox) 800 mg PO UNSCH PRN PRN Reason: For Magnesium 1.2 - 1.6 mg/dL Miscellaneous Information ([facility] Ordered Lab Info) 0 each OTHER ONCE ONE Stop: 11/01/17 05:46 Potassium Bicarb/Potassium Chloride (K-Lyte Cl Eff) 50 meq PO UNSCH PRN PRN Reason: For Potassium 3.3 - 3.5 mEq/L Potassium Phosphate (K-Phos Original) 2,000 mg PO Q4H PRN PRN Reason: Phosphorus Less Than 2.5 mg/dL Potassium Phosphate (K-Phos Original) 2,000 mg PO UNSCH PRN PRN Reason: SEE LABEL COMMENTS Senna/Docusate Sodium (Leatha-Colace) 1 tab PO BID [facility] Last Admin: 10/31/17 08:02 Dose: 1 tab Sennosides (Senokot) 17.2 mg PO Q12H PRN PRN Reason: Moderate Constipation Sodium Chloride (Ns Flush) 2 ml IV.FLUSH BID [facility] Last Admin: 10/31/17 08:02 Dose: 2 ml Sodium Chloride (Ns Flush) 2 ml IV.FLUSH PRN PRN PRN Reason: FLUSH AFTER USING IV ACCESS Terbutaline Sulfate (Brethine Inj) 1 mg SQ UNSCH PRN PRN Reason: For Extravasation <Michael Cordero - Last Filed: 10/31/17 13:25> Allergies Allergy/AdvReac Type Severity Reaction Status Date / Time No Known Allergies Allergy Unverified 10/30/17 17:35 Home Medications Medication Instructions Recorded Confirmed Type No Known Home Medications 10/30/17 10/30/17 History Exam Vital signs: Vital Signs 10/30/17 17:14 10/30/17 17:28 10/30/17 18:21 Temperature 103 F H 101.2 F H Pulse Rate 131 H 136 H 130 H Respiratory Rate 20 22 22 Blood Pressure 129/58 L 122/78 Pulse Oximetry 95 95 96 10/30/17 18:48 10/30/17 22:24 10/30/17 23:00 Temperature 102.7 F H Pulse Rate 120 H 135 H Respiratory Rate 22 40 H Blood Pressure 182/84 H 145/75 H Pulse Oximetry 94 L 89 L 10/30/17 23:56 10/31/17 00:00 10/31/17 04:00 Temperature 103.1 F H 100 F H Pulse Rate 130 H 111 H Respiratory Rate 33 H 14 Blood Pressure 120/69 81/54 L Pulse Oximetry 89 L 95 95 10/31/17 06:00 10/31/17 07:40 10/31/17 08:45 Temperature Pulse Rate 109 H 106 H Respiratory Rate 26 H 26 H Blood Pressure Pulse Oximetry 100 Intake & Output 10/30/17 10/31/17 10/31/17 18:59 06:59 18:59 Intake Total 5638 / 5638 1000 / 1000 Output Total 600 / 600 Balance 5038 / 5038 1000 / 1000 Weight 127.006 kg 128.5 kg Intake: IV 3400 / 3400 1000 / 1000 LR 1000 mL Inj 1,000 ML @ 150 1000 / 1000 mls/hr IV.CONT .Q6H40M [facility], [facility]1983 Rx#: [id number] Diprivan 1000 mg/100 ml Inj 1, 100 / 100 000 mg In 100 ml @ 5 MCG/KG/MIN 3.81 mls/hr IV.CONT TITRATE PRN Rx#:[id number] Ofirmev Inj 1,000 mg In 100 ml 100 / 100 @ 400 mls/hr IV.SIG ONCE ONE Rx #:[id number] Magnesium Sulfate 1 gm/D5W 100 100 / 100 ml Premix 100 ML @ 100 mls/hr IV.SIG ONCE ONE Rx#:[id number] Zosyn 3.375 GM Premix 50 ML @ 100 / 100 100 mls/hr IV.SIG Q6H [facility], [facility]1983 Rx#: [id number] NS Inj 1,000 ML @ Wide Open IV. 3000 / 3000 SIG .Q0M [facility], [facility]1983 Rx#:[id number] Other 2237 / 223 Output: Urine 300 / 300 Gastric Drainage 300 / 300 Orogastric Tube 300 / 300 - Constitutional no acute distress Comments: sedated, unresponsive - Routine HEENT Exam Head: Present: normocephalic, atraumatic Eye: Present: conjunctival icterus - Routine Respiratory Exam Present: patient mechanically ventilated - Routine Cardiovascular Exam Present: tachycardia - Routine Abdominal Exam Present: soft, normoactive bowel sounds, distended - Routine Skin Exam Present: dry, warm <Abigail Murillo - Last Filed: 10/31/17 09:06> Vital signs: Vital Signs 10/30/17 17:14 10/30/17 17:28 10/30/17 18:21 Temperature 103 F H 101.2 F H Pulse Rate 131 H 136 H 130 H Respiratory Rate 20 22 22 Blood Pressure 129/58 L 122/78 Pulse Oximetry 95 95 96 10/30/17 18:48 10/30/17 22:24 10/30/17 23:00 Temperature 102.7 F H Pulse Rate 120 H 135 H Respiratory Rate 22 40 H Blood Pressure 182/84 H 145/75 H Pulse Oximetry 94 L 89 L 10/30/17 23:56 10/31/17 00:00 10/31/17 04:00 Temperature 103.1 F H 100 F H Pulse Rate 130 H 111 H Respiratory Rate 33 H 14 Blood Pressure 120/69 81/54 L Pulse Oximetry 89 L 95 95 10/31/17 06:00 10/31/17 07:40 10/31/17 08:00 Temperature Pulse Rate 109 H Respiratory Rate 26 H Blood Pressure Pulse Oximetry 100 104 H 10/31/17 08:45 10/31/17 10:00 10/31/17 11:22 Temperature Pulse Rate 106 H 104 H 104 H Respiratory Rate 26 H Blood Pressure Pulse Oximetry 10/31/17 11:25 Temperature Pulse Rate Respiratory Rate 23 Blood Pressure Pulse Oximetry Intake & Output 10/30/17 10/31/17 10/31/17 18:59 06:59 18:59 Intake Total 5638 / 5638 1450 / 1450 Output Total 600 / 600 Balance 5038 / 5038 1450 / 1450 Weight 127.006 kg 128.5 kg Intake: IV 3400 / 3400 1450 / 1450 LR 1000 mL Inj 1,000 ML @ 150 1000 / 1000 mls/hr IV.CONT .Q6H40M [place] Rx#: [id number] Diprivan 1000 mg/100 ml Inj 1, 100 / 100 100 / 100 000 mg In 100 ml @ 5 MCG/KG/MIN 3.81 mls/hr IV.CONT TITRATE PRN Rx#:[id number] Ofirmev Inj 1,000 mg In 100 ml 100 / 100 @ 400 mls/hr IV.SIG ONCE ONE Rx #:[id number] Magnesium Sulfate 1 gm/D5W 100 100 / 100 100 / 100 ml Premix 100 ML @ 100 mls/hr IV.SIG Q1H [place] Rx#:[id number] Levophed Inj 4 MG In NS Inj 246 250 / 250 ML @ 2 MCG/MIN 7.5 mls/hr IV. SIG TITRATE PRN Rx#:[id number] Zosyn 3.375 GM Premix 50 ML @ 100 / 100 100 mls/hr IV.SIG Q6H [place] Rx#: [id number] NS Inj 1,000 ML @ Wide Open IV. 3000 / 3000 SIG .Q0M [facility], [facility] Rx#:[id number] Other 2238 / 2238 Output: Urine 300 / 300 Gastric Drainage 300 / 300 Orogastric Tube 300 / 300 <Michael Cordero - Last Filed: 10/31/17 13:25> Results - Labs CBC & Chem 7: 10/31/17 04:18 10/31/17 04:18 Labs: Laboratory Results - last 24 hr 10/30/17 10/30/17 10/30/17 17:39 17:39 17:39 WBC 23.5 H RBC 3.74 L Hgb 13.1 Hct 39.2 MCV 104.6 H MCH 35.1 H MCHC 33.5 RDW 13.9 Plt Count 76 L MPV 9.0 Prelim Diff (Auto) Slide review pending Neut % (Auto) 93.9 H Lymph % (Auto) 2.2 L Bowman % (Auto) 3.7 Eos % (Auto) 0.0 Baso % (Auto) 0.2 Neut # (Auto) 22.0 H Lymph # (Auto) 0.5 L Bowman # (Auto) 0.9 Eos # (Auto) 0.0 Baso # (Auto) 0.0 WBC Differential Manual diff final Seg Neuts % (Manual) 67 Band Neuts % (Manual) 26 H Lymphocytes % (Manual) Monocytes % (Manual) 5 Basophils % (Manual) 1 Metamyelocytes % (Man) 1 Abs Neuts (Manual) 22.1 H Differential Comment . Toxic Granulation Toxic Vacuolation Present H Platelet Estimate Low L Platelet Morphology Normal Basophilic Stippling Faint H PT 19.4 H INR 1.9 APTT 43.2 H Fibrinogen Puncture Site Patient Temperature O2 Saturation ABG pH ABG pCO2 ABG pO2 ABG HCO3 ABG O2 Content ABG Base Excess ABG Methemoglobin Jamar Test Hemoglobin Carboxyhemoglobin O2 Delivery Device Vent Setting Inspired O2 Critical Value Sodium 135 L Potassium 4.4 Chloride 98 Carbon Dioxide 19.5 L Anion Gap 18 H BUN 7 Creatinine 1.33 H Estimated GFR 56 L Random Glucose 260 H Lactic Acid Calcium 7.8 L Prot Corrected Calcium Phosphorus Magnesium 1.1 L Total Bilirubin 5.4 H AST 174 H ALT 39 Alkaline Phosphatase 269 H Ammonia Total Protein 7.8 Albumin 2.6 L Lipase 59 L Beta-Hydroxybutyric Acd TSH Free T4 Free T3 Urine Color Urine Clarity Urine pH Ur Specific Solomon Urine Protein Urine Glucose (UA) Urine Ketones Urine Occult Blood Urine Nitrate Urine Bilirubin Urine Urobilinogen Ur Leukocyte Esterase Urine RBC Urine WBC Ur Squamous Epith Cells Urine Bacteria Hyaline Casts Urine Mucus Micro UA Comment Urine Culture Comments Nasal Screen MRSA (PCR) Salicylates Urine Opiates Screen Acetaminophen Ur Barbiturates Screen Ur Amphetamines Screen U Benzodiazepines Scrn Urine Cocaine Screen U Cannabinoids Screen Serum Alcohol 10/30/17 10/30/17 10/30/17 17:39 17:39 17:39 WBC RBC Hgb Hct MCV MCH MCHC RDW Plt Count MPV Prelim Diff (Auto) Neut % (Auto) Lymph % (Auto) Bowman % (Auto) Eos % (Auto) Baso % (Auto) Neut # (Auto) Lymph # (Auto) Bowman # (Auto) Eos # (Auto) Baso # (Auto) WBC Differential Seg Neuts % (Manual) Band Neuts % (Manual) Lymphocytes % (Manual) Monocytes % (Manual) Basophils % (Manual) Metamyelocytes % (Man) Abs Neuts (Manual) Differential Comment Toxic Granulation Toxic Vacuolation Platelet Estimate Platelet Morphology Basophilic Stippling PT INR APTT Fibrinogen Puncture Site Patient Temperature O2 Saturation ABG pH ABG pCO2 ABG pO2 ABG HCO3 ABG O2 Content ABG Base Excess ABG Methemoglobin Jamar Test Hemoglobin Carboxyhemoglobin O2 Delivery Device Vent Setting Inspired O2 Critical Value Sodium Potassium Chloride Carbon Dioxide Anion Gap BUN Creatinine Estimated GFR Random Glucose Lactic Acid Calcium Prot Corrected Calcium Phosphorus 1.2 L Magnesium Total Bilirubin AST ALT Alkaline Phosphatase Ammonia Total Protein Albumin Lipase Beta-Hydroxybutyric Acd TSH 0.250 L Free T4 Free T3 Urine Color Urine Clarity Urine pH Ur Specific Solomon Urine Protein Urine Glucose (UA) Urine Ketones Urine Occult Blood Urine Nitrate Urine Bilirubin Urine Urobilinogen Ur Leukocyte Esterase Urine RBC Urine WBC Ur Squamous Epith Cells Urine Bacteria Hyaline Casts Urine Mucus Micro UA Comment Urine Culture Comments Nasal Screen MRSA (PCR) Salicylates Less than 1.7 L Urine Opiates Screen Acetaminophen Less than 2.0 L Ur Barbiturates Screen Ur Amphetamines Screen U Benzodiazepines Scrn Urine Cocaine Screen U Cannabinoids Screen Serum Alcohol 147 H 10/30/17 10/30/17 10/30/17 17:45 17:45 19:29 WBC RBC Hgb Hct MCV MCH MCHC RDW Plt Count MPV Prelim Diff (Auto) Neut % (Auto) Lymph % (Auto) Bowman % (Auto) Eos % (Auto) Baso % (Auto) Neut # (Auto) Lymph # (Auto) Bowman # (Auto) Eos # (Auto) Baso # (Auto) WBC Differential Seg Neuts % (Manual) Band Neuts % (Manual) Lymphocytes % (Manual) Monocytes % (Manual) Basophils % (Manual) Metamyelocytes % (Man) Abs Neuts (Manual) Differential Comment Toxic Granulation Toxic Vacuolation Platelet Estimate Platelet Morphology Basophilic Stippling PT INR APTT Fibrinogen Puncture Site Patient Temperature O2 Saturation ABG pH ABG pCO2 ABG pO2 ABG HCO3 ABG O2 Content ABG Base Excess ABG Methemoglobin Jamar Test Hemoglobin Carboxyhemoglobin O2 Delivery Device Vent Setting Inspired O2 Critical Value Sodium Potassium Chloride Carbon Dioxide Anion Gap BUN Creatinine Estimated GFR Random Glucose Lactic Acid 11.4 H* Calcium Prot Corrected Calcium Phosphorus Magnesium Total Bilirubin AST ALT Alkaline Phosphatase Ammonia Total Protein Albumin Lipase Beta-Hydroxybutyric Acd TSH Free T4 Free T3 Urine Color Ronel Urine Clarity Hazy H Urine pH 5.0 Ur Specific Solomon 1.017 Urine Protein Negative Urine Glucose (UA) 50 Urine Ketones Negative Urine Occult Blood Negative Urine Nitrate Negative Urine Bilirubin Negative Urine Urobilinogen 4 or greater Ur Leukocyte Esterase Negative Urine RBC 1 Urine WBC 3 Ur Squamous Epith Cells <1 Urine Bacteria Rare H Hyaline Casts 6 Urine Mucus Few H Micro UA Comment Culture not ind Urine Culture Comments Culture not ind Nasal Screen MRSA (PCR) Salicylates Urine Opiates Screen Neg Acetaminophen Ur Barbiturates Screen Neg Ur Amphetamines Screen Neg U Benzodiazepines Scrn Neg Urine Cocaine Screen Neg U Cannabinoids Screen Neg Serum Alcohol 10/30/17 10/30/17 10/30/17 22:28 22:28 22:28 WBC RBC Hgb Hct MCV MCH MCHC RDW Plt Count MPV Prelim Diff (Auto) Neut % (Auto) Lymph % (Auto) Bowman % (Auto) Eos % (Auto) Baso % (Auto) Neut # (Auto) Lymph # (Auto) Bowman # (Auto) Eos # (Auto) Baso # (Auto) WBC Differential Seg Neuts % (Manual) Band Neuts % (Manual) Lymphocytes % (Manual) Monocytes % (Manual) Basophils % (Manual) Metamyelocytes % (Man) Abs Neuts (Manual) Differential Comment Toxic Granulation Toxic Vacuolation Platelet Estimate Platelet Morphology Basophilic Stippling PT INR APTT Fibrinogen Puncture Site Patient Temperature O2 Saturation ABG pH ABG pCO2 ABG pO2 ABG HCO3 ABG O2 Content ABG Base Excess ABG Methemoglobin Jamar Test Hemoglobin Carboxyhemoglobin O2 Delivery Device Vent Setting Inspired O2 Critical Value Sodium Potassium Chloride Carbon Dioxide Anion Gap BUN Creatinine Estimated GFR Random Glucose Lactic Acid 11.1 H* Calcium Prot Corrected Calcium Phosphorus Magnesium Total Bilirubin AST ALT Alkaline Phosphatase Ammonia 44 H Total Protein Albumin Lipase Beta-Hydroxybutyric Acd 0.13 TSH Free T4 Free T3 Urine Color Urine Clarity Urine pH Ur Specific Solomon Urine Protein Urine Glucose (UA) Urine Ketones Urine Occult Blood Urine Nitrate Urine Bilirubin Urine Urobilinogen Ur Leukocyte Esterase Urine RBC Urine WBC Ur Squamous Epith Cells Urine Bacteria Hyaline Casts Urine Mucus Micro UA Comment Urine Culture Comments Nasal Screen MRSA (PCR) Salicylates Urine Opiates Screen Acetaminophen Ur Barbiturates Screen Ur Amphetamines Screen U Benzodiazepines Scrn Urine Cocaine Screen U Cannabinoids Screen Serum Alcohol 10/30/17 10/31/17 10/31/17 23:12 02:26 04:18 WBC RBC Hgb Hct MCV MCH MCHC RDW Plt Count MPV Prelim Diff (Auto) Neut % (Auto) Lymph % (Auto) Bowman % (Auto) Eos % (Auto) Baso % (Auto) Neut # (Auto) Lymph # (Auto) Bowman # (Auto) Eos # (Auto) Baso # (Auto) WBC Differential Seg Neuts % (Manual) Band Neuts % (Manual) Lymphocytes % (Manual) Monocytes % (Manual) Basophils % (Manual) Metamyelocytes % (Man) Abs Neuts (Manual) Differential Comment Toxic Granulation Toxic Vacuolation Platelet Estimate Platelet Morphology Basophilic Stippling PT INR APTT Fibrinogen Puncture Site Right radial Patient Temperature 98.6 O2 Saturation 93 ABG pH 7.32 L ABG pCO2 37 L ABG pO2 83 ABG HCO3 19 L ABG O2 Content 16.2 ABG Base Excess -6.4 L ABG Methemoglobin 1.3 Jamar Test Present Hemoglobin 12.3 Carboxyhemoglobin 0.8 O2 Delivery Device Vent Vent Setting See comments Inspired O2 100 Critical Value No Sodium Potassium Chloride Carbon Dioxide Anion Gap BUN Creatinine Estimated GFR Random Glucose Lactic Acid 9.0 H* Calcium Prot Corrected Calcium Phosphorus Magnesium Total Bilirubin AST ALT Alkaline Phosphatase Ammonia Total Protein Albumin Lipase Beta-Hydroxybutyric Acd TSH Free T4 Free T3 Urine Color Urine Clarity Urine pH Ur Specific Solomon Urine Protein Urine Glucose (UA) Urine Ketones Urine Occult Blood Urine Nitrate Urine Bilirubin Urine Urobilinogen Ur Leukocyte Esterase Urine RBC Urine WBC Ur Squamous Epith Cells Urine Bacteria Hyaline Casts Urine Mucus Micro UA Comment Urine Culture Comments Nasal Screen MRSA (PCR) Mrsa detected Salicylates Urine Opiates Screen Acetaminophen Ur Barbiturates Screen Ur Amphetamines Screen U Benzodiazepines Scrn Urine Cocaine Screen U Cannabinoids Screen Serum Alcohol 10/31/17 10/31/17 10/31/17 04:18 04:18 04:18 WBC 23.8 H RBC 3.70 L Hgb 12.8 L Hct 38.7 L MCV 104.6 H MCH 34.6 H MCHC 33.1 RDW 14.7 Plt Count 70 L MPV 9.8 Prelim Diff (Auto) Slide review pending Neut % (Auto) 95.5 H Lymph % (Auto) 1.0 L Bowman % (Auto) 2.9 Eos % (Auto) 0.0 Baso % (Auto) 0.6 Neut # (Auto) 22.8 H Lymph # (Auto) 0.2 L Bowman # (Auto) 0.7 Eos # (Auto) 0.0 Baso # (Auto) 0.1 WBC Differential Manual diff final Seg Neuts % (Manual) 59 Band Neuts % (Manual) 35 H Lymphocytes % (Manual) 1 L Monocytes % (Manual) 1 Basophils % (Manual) Metamyelocytes % (Man) 4 H Abs Neuts (Manual) 23.3 H Differential Comment . Toxic Granulation 1+ H Toxic Vacuolation Present H Platelet Estimate Low L Platelet Morphology Enlarged H Basophilic Stippling PT 20.8 H INR 2.1 APTT 53.0 H D Fibrinogen 206 L Puncture Site Patient Temperature O2 Saturation ABG pH ABG pCO2 ABG pO2 ABG HCO3 ABG O2 Content ABG Base Excess ABG Methemoglobin Jamar Test Hemoglobin Carboxyhemoglobin O2 Delivery Device Vent Setting Inspired O2 Critical Value Sodium 138 Potassium 5.4 H D Chloride 101 Carbon Dioxide 23.2 Anion Gap 14 BUN 9 Creatinine 1.95 H Estimated GFR 36 L Random Glucose 139 H D Lactic Acid Calcium 7.1 L* Prot Corrected Calcium 7.1 L* Phosphorus 3.4 D Magnesium 1.2 L Total Bilirubin 6.5 H AST 173 H ALT 36 Alkaline Phosphatase 184 H Ammonia Total Protein 7.3 Albumin 2.5 L Lipase Beta-Hydroxybutyric Acd TSH Free T4 1.28 Free T3 1.57 L Urine Color Urine Clarity Urine pH Ur Specific Solomon Urine Protein Urine Glucose (UA) Urine Ketones Urine Occult Blood Urine Nitrate Urine Bilirubin Urine Urobilinogen Ur Leukocyte Esterase Urine RBC Urine WBC Ur Squamous Epith Cells Urine Bacteria Hyaline Casts Urine Mucus Micro UA Comment Urine Culture Comments Nasal Screen MRSA (PCR) Salicylates Urine Opiates Screen Acetaminophen Ur Barbiturates Screen Ur Amphetamines Screen U Benzodiazepines Scrn Urine Cocaine Screen U Cannabinoids Screen Serum Alcohol - Imaging Impressions Abdomen/Pelvis CT 10/30/17 17:35 CONCLUSION: 1. Mild colitis predominantly on the right side with trace free fluid and some inflammatory changes on the right. No bowel obstruction. No free air. 2. Multiple layering gallstones. 3. Subsegmental basilar airspace consolidation in the lungs. Differential diagnosis includes mild pneumonia. 4. Fatty liver enlarged to 25 cm. Chest X-Ray 10/30/17 17:35 CONCLUSION: Subsegmental basilar airspace disease, right greater than left. Differential diagnosis includes pneumonia and atelectasis, in patient with fever. Head CT 10/30/17 17:35 CONCLUSION: 1. No acute intracranial abnormalities. . Chest CTA 10/30/17 19:02 CONCLUSION: 1. Suboptimal bolus but no evidence for central pulmonary emboli. 2. Patchy airspace consolidation right lung base most characteristic of pneumonia. No significant effusion. Foot X-Ray 10/30/17 21:27 CONCLUSION: No acute findings. Mild degenerative change in the right foot. Prominent calcaneal bone spurs. Foot X-Ray 10/30/17 21:27 CONCLUSION: No acute findings. Moderate degenerative change. Bone spurs posterior calcaneus. Lumbar Spine CT 10/30/17 21:43 CONCLUSION: 1. No acute fracture. 2. 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 3. At L5-S1 there is a small central disc protrusion. Mild bilateral foraminal encroachment. Thoracic Spine CT 10/30/17 21:43 CONCLUSION: 1. Negative for acute traumatic injury to the thoracic spine. Small Schmorl's nodes in the lower thoracic spine. Chest X-Ray 10/31/17 01:38 CONCLUSION: 1. Interval intubation and placement of right internal jugular central venous line with no pneumothorax. 2. Placement of nasogastric tube. 3. Mid inspiratory study with crowding of the lung vasculature. <Abigail Murillo - Last Filed: 10/31/17 09:06> - Labs CBC & Chem 7: 10/31/17 04:18 10/31/17 12:04 Labs: Laboratory Results - last 24 hr 10/30/17 10/30/17 10/30/17 17:39 17:39 17:39 WBC 23.5 H RBC 3.74 L Hgb 13.1 Hct 39.2 MCV 104.6 H MCH 35.1 H MCHC 33.5 RDW 13.9 Plt Count 76 L MPV 9.0 Prelim Diff (Auto) Slide review pending Neut % (Auto) 93.9 H Lymph % (Auto) 2.2 L Bowman % (Auto) 3.7 Eos % (Auto) 0.0 Baso % (Auto) 0.2 Neut # (Auto) 22.0 H Lymph # (Auto) 0.5 L Bowman # (Auto) 0.9 Eos # (Auto) 0.0 Baso # (Auto) 0.0 WBC Differential Manual diff final Seg Neuts % (Manual) 67 Band Neuts % (Manual) 26 H Lymphocytes % (Manual) Monocytes % (Manual) 5 Basophils % (Manual) 1 Metamyelocytes % (Man) 1 Abs Neuts (Manual) 22.1 H Differential Comment . Toxic Granulation Toxic Vacuolation Present H Platelet Estimate Low L Platelet Morphology Normal Basophilic Stippling Faint H PT 19.4 H INR 1.9 APTT 43.2 H Fibrinogen Puncture Site Patient Temperature O2 Saturation ABG pH ABG pCO2 ABG pO2 ABG HCO3 ABG O2 Content ABG Base Excess ABG Methemoglobin Jamar Test Hemoglobin Carboxyhemoglobin O2 Delivery Device Vent Setting Inspired O2 Critical Value Sodium 135 L Potassium 4.4 Chloride 98 Carbon Dioxide 19.5 L Anion Gap 18 H BUN 7 Creatinine 1.33 H Estimated GFR 56 L POC Glucose Random Glucose 260 H Lactic Acid Calcium 7.8 L Prot Corrected Calcium Phosphorus Magnesium 1.1 L Total Bilirubin 5.4 H AST 174 H ALT 39 Alkaline Phosphatase 269 H Ammonia Total Creatine Kinase CK-MB (CK-2) CK-MB (CK-2) % Total Protein 7.8 Albumin 2.6 L Lipase 59 L Beta-Hydroxybutyric Acd TSH Free T4 Free T3 Urine Color Urine Clarity Urine pH Ur Specific Solomon Urine Protein Urine Glucose (UA) Urine Ketones Urine Occult Blood Urine Nitrate Urine Bilirubin Urine Urobilinogen Ur Leukocyte Esterase Urine RBC Urine WBC Ur Squamous Epith Cells Urine Bacteria Hyaline Casts Urine Mucus Micro UA Comment Urine Culture Comments Nasal Screen MRSA (PCR) Salicylates Urine Opiates Screen Acetaminophen Ur Barbiturates Screen Ur Amphetamines Screen U Benzodiazepines Scrn Urine Cocaine Screen U Cannabinoids Screen Serum Alcohol 10/30/17 10/30/17 10/30/17 17:39 17:39 17:39 WBC RBC Hgb Hct MCV MCH MCHC RDW Plt Count MPV Prelim Diff (Auto) Neut % (Auto) Lymph % (Auto) Bowman % (Auto) Eos % (Auto) Baso % (Auto) Neut # (Auto) Lymph # (Auto) Bowman # (Auto) Eos # (Auto) Baso # (Auto) WBC Differential Seg Neuts % (Manual) Band Neuts % (Manual) Lymphocytes % (Manual) Monocytes % (Manual) Basophils % (Manual) Metamyelocytes % (Man) Abs Neuts (Manual) Differential Comment Toxic Granulation Toxic Vacuolation Platelet Estimate Platelet Morphology Basophilic Stippling PT INR APTT Fibrinogen Puncture Site Patient Temperature O2 Saturation ABG pH ABG pCO2 ABG pO2 ABG HCO3 ABG O2 Content ABG Base Excess ABG Methemoglobin Jamar Test Hemoglobin Carboxyhemoglobin O2 Delivery Device Vent Setting Inspired O2 Critical Value Sodium Potassium Chloride Carbon Dioxide Anion Gap BUN Creatinine Estimated GFR POC Glucose Random Glucose Lactic Acid Calcium Prot Corrected Calcium Phosphorus 1.2 L Magnesium Total Bilirubin AST ALT Alkaline Phosphatase Ammonia Total Creatine Kinase CK-MB (CK-2) CK-MB (CK-2) % Total Protein Albumin Lipase Beta-Hydroxybutyric Acd TSH 0.250 L Free T4 Free T3 Urine Color Urine Clarity Urine pH Ur Specific Solomon Urine Protein Urine Glucose (UA) Urine Ketones Urine Occult Blood Urine Nitrate Urine Bilirubin Urine Urobilinogen Ur Leukocyte Esterase Urine RBC Urine WBC Ur Squamous Epith Cells Urine Bacteria Hyaline Casts Urine Mucus Micro UA Comment Urine Culture Comments Nasal Screen MRSA (PCR) Salicylates Less than 1.7 L Urine Opiates Screen Acetaminophen Less than 2.0 L Ur Barbiturates Screen Ur Amphetamines Screen U Benzodiazepines Scrn Urine Cocaine Screen U Cannabinoids Screen Serum Alcohol 147 H 10/30/17 10/30/17 10/30/17 17:45 17:45 19:29 WBC RBC Hgb Hct MCV MCH MCHC RDW Plt Count MPV Prelim Diff (Auto) Neut % (Auto) Lymph % (Auto) Bowman % (Auto) Eos % (Auto) Baso % (Auto) Neut # (Auto) Lymph # (Auto) Bowman # (Auto) Eos # (Auto) Baso # (Auto) WBC Differential Seg Neuts % (Manual) Band Neuts % (Manual) Lymphocytes % (Manual) Monocytes % (Manual) Basophils % (Manual) Metamyelocytes % (Man) Abs Neuts (Manual) Differential Comment Toxic Granulation Toxic Vacuolation Platelet Estimate Platelet Morphology Basophilic Stippling PT INR APTT Fibrinogen Puncture Site Patient Temperature O2 Saturation ABG pH ABG pCO2 ABG pO2 ABG HCO3 ABG O2 Content ABG Base Excess ABG Methemoglobin Jamar Test Hemoglobin Carboxyhemoglobin O2 Delivery Device Vent Setting Inspired O2 Critical Value Sodium Potassium Chloride Carbon Dioxide Anion Gap BUN Creatinine Estimated GFR POC Glucose Random Glucose Lactic Acid 11.4 H* Calcium Prot Corrected Calcium Phosphorus Magnesium Total Bilirubin AST ALT Alkaline Phosphatase Ammonia Total Creatine Kinase CK-MB (CK-2) CK-MB (CK-2) % Total Protein Albumin Lipase Beta-Hydroxybutyric Acd TSH Free T4 Free T3 Urine Color Ronel Urine Clarity Hazy H Urine pH 5.0 Ur Specific Solomon 1.017 Urine Protein Negative Urine Glucose (UA) 50 Urine Ketones Negative Urine Occult Blood Negative Urine Nitrate Negative Urine Bilirubin Negative Urine Urobilinogen 4 or greater Ur Leukocyte Esterase Negative Urine RBC 1 Urine WBC 3 Ur Squamous Epith Cells <1 Urine Bacteria Rare H Hyaline Casts 6 Urine Mucus Few H Micro UA Comment Culture not ind Urine Culture Comments Culture not ind Nasal Screen MRSA (PCR) Salicylates Urine Opiates Screen Neg Acetaminophen Ur Barbiturates Screen Neg Ur Amphetamines Screen Neg U Benzodiazepines Scrn Neg Urine Cocaine Screen Neg U Cannabinoids Screen Neg Serum Alcohol 10/30/17 10/30/17 10/30/17 22:28 22:28 22:28 WBC RBC Hgb Hct MCV MCH MCHC RDW Plt Count MPV Prelim Diff (Auto) Neut % (Auto) Lymph % (Auto) Bowman % (Auto) Eos % (Auto) Baso % (Auto) Neut # (Auto) Lymph # (Auto) Bowman # (Auto) Eos # (Auto) Baso # (Auto) WBC Differential Seg Neuts % (Manual) Band Neuts % (Manual) Lymphocytes % (Manual) Monocytes % (Manual) Basophils % (Manual) Metamyelocytes % (Man) Abs Neuts (Manual) Differential Comment Toxic Granulation Toxic Vacuolation Platelet Estimate Platelet Morphology Basophilic Stippling PT INR APTT Fibrinogen Puncture Site Patient Temperature O2 Saturation ABG pH ABG pCO2 ABG pO2 ABG HCO3 ABG O2 Content ABG Base Excess ABG Methemoglobin Jamar Test Hemoglobin Carboxyhemoglobin O2 Delivery Device Vent Setting Inspired O2 Critical Value Sodium Potassium Chloride Carbon Dioxide Anion Gap BUN Creatinine Estimated GFR POC Glucose Random Glucose Lactic Acid 11.1 H* Calcium Prot Corrected Calcium Phosphorus Magnesium Total Bilirubin AST ALT Alkaline Phosphatase Ammonia 44 H Total Creatine Kinase CK-MB (CK-2) CK-MB (CK-2) % Total Protein Albumin Lipase Beta-Hydroxybutyric Acd 0.13 TSH Free T4 Free T3 Urine Color Urine Clarity Urine pH Ur Specific Solomon Urine Protein Urine Glucose (UA) Urine Ketones Urine Occult Blood Urine Nitrate Urine Bilirubin Urine Urobilinogen Ur Leukocyte Esterase Urine RBC Urine WBC Ur Squamous Epith Cells Urine Bacteria Hyaline Casts Urine Mucus Micro UA Comment Urine Culture Comments Nasal Screen MRSA (PCR) Salicylates Urine Opiates Screen Acetaminophen Ur Barbiturates Screen Ur Amphetamines Screen U Benzodiazepines Scrn Urine Cocaine Screen U Cannabinoids Screen Serum Alcohol 10/30/17 10/31/17 10/31/17 23:12 02:26 04:18 WBC RBC Hgb Hct MCV MCH MCHC RDW Plt Count MPV Prelim Diff (Auto) Neut % (Auto) Lymph % (Auto) Bowman % (Auto) Eos % (Auto) Baso % (Auto) Neut # (Auto) Lymph # (Auto) Bowman # (Auto) Eos # (Auto) Baso # (Auto) WBC Differential Seg Neuts % (Manual) Band Neuts % (Manual) Lymphocytes % (Manual) Monocytes % (Manual) Basophils % (Manual) Metamyelocytes % (Man) Abs Neuts (Manual) Differential Comment Toxic Granulation Toxic Vacuolation Platelet Estimate Platelet Morphology Basophilic Stippling PT INR APTT Fibrinogen Puncture Site Right radial Patient Temperature 98.6 O2 Saturation 93 ABG pH 7.32 L ABG pCO2 37 L ABG pO2 83 ABG HCO3 19 L ABG O2 Content 16.2 ABG Base Excess -6.4 L ABG Methemoglobin 1.3 Jamar Test Present Hemoglobin 12.3 Carboxyhemoglobin 0.8 O2 Delivery Device Vent Vent Setting See comments Inspired O2 100 Critical Value No Sodium Potassium Chloride Carbon Dioxide Anion Gap BUN Creatinine Estimated GFR POC Glucose Random Glucose Lactic Acid 9.0 H* Calcium Prot Corrected Calcium Phosphorus Magnesium Total Bilirubin AST ALT Alkaline Phosphatase Ammonia Total Creatine Kinase CK-MB (CK-2) CK-MB (CK-2) % Total Protein Albumin Lipase Beta-Hydroxybutyric Acd TSH Free T4 Free T3 Urine Color Urine Clarity Urine pH Ur Specific Solomon Urine Protein Urine Glucose (UA) Urine Ketones Urine Occult Blood Urine Nitrate Urine Bilirubin Urine Urobilinogen Ur Leukocyte Esterase Urine RBC Urine WBC Ur Squamous Epith Cells Urine Bacteria Hyaline Casts Urine Mucus Micro UA Comment Urine Culture Comments Nasal Screen MRSA (PCR) Mrsa detected Salicylates Urine Opiates Screen Acetaminophen Ur Barbiturates Screen Ur Amphetamines Screen U Benzodiazepines Scrn Urine Cocaine Screen U Cannabinoids Screen Serum Alcohol 10/31/17 10/31/17 10/31/17 04:18 04:18 04:18 WBC 23.8 H RBC 3.70 L Hgb 12.8 L Hct 38.7 L MCV 104.6 H MCH 34.6 H MCHC 33.1 RDW 14.7 Plt Count 70 L MPV 9.8 Prelim Diff (Auto) Slide review pending Neut % (Auto) 95.5 H Lymph % (Auto) 1.0 L Bowman % (Auto) 2.9 Eos % (Auto) 0.0 Baso % (Auto) 0.6 Neut # (Auto) 22.8 H Lymph # (Auto) 0.2 L Bowman # (Auto) 0.7 Eos # (Auto) 0.0 Baso # (Auto) 0.1 WBC Differential Manual diff final Seg Neuts % (Manual) 59 Band Neuts % (Manual) 35 H Lymphocytes % (Manual) 1 L Monocytes % (Manual) 1 Basophils % (Manual) Metamyelocytes % (Man) 4 H Abs Neuts (Manual) 23.3 H Differential Comment . Toxic Granulation 1+ H Toxic Vacuolation Present H Platelet Estimate Low L Platelet Morphology Enlarged H Basophilic Stippling PT 20.8 H INR 2.1 APTT 53.0 H D Fibrinogen 206 L Puncture Site Patient Temperature O2 Saturation ABG pH ABG pCO2 ABG pO2 ABG HCO3 ABG O2 Content ABG Base Excess ABG Methemoglobin Jamar Test Hemoglobin Carboxyhemoglobin O2 Delivery Device Vent Setting Inspired O2 Critical Value Sodium 138 Potassium 5.4 H D Chloride 101 Carbon Dioxide 23.2 Anion Gap 14 BUN 9 Creatinine 1.95 H Estimated GFR 36 L POC Glucose Random Glucose 139 H D Lactic Acid Calcium 7.1 L* Prot Corrected Calcium 7.1 L* Phosphorus 3.4 D Magnesium 1.2 L Total Bilirubin 6.5 H AST 173 H ALT 36 Alkaline Phosphatase 184 H Ammonia Total Creatine Kinase CK-MB (CK-2) CK-MB (CK-2) % Total Protein 7.3 Albumin 2.5 L Lipase Beta-Hydroxybutyric Acd TSH Free T4 1.28 Free T3 1.57 L Urine Color Urine Clarity Urine pH Ur Specific Solomon Urine Protein Urine Glucose (UA) Urine Ketones Urine Occult Blood Urine Nitrate Urine Bilirubin Urine Urobilinogen Ur Leukocyte Esterase Urine RBC Urine WBC Ur Squamous Epith Cells Urine Bacteria Hyaline Casts Urine Mucus Micro UA Comment Urine Culture Comments Nasal Screen MRSA (PCR) Salicylates Urine Opiates Screen Acetaminophen Ur Barbiturates Screen Ur Amphetamines Screen U Benzodiazepines Scrn Urine Cocaine Screen U Cannabinoids Screen Serum Alcohol 10/31/17 10/31/17 10/31/17 12:04 12:04 12:04 WBC RBC Hgb Hct MCV MCH MCHC RDW Plt Count MPV Prelim Diff (Auto) Neut % (Auto) Lymph % (Auto) Bowman % (Auto) Eos % (Auto) Baso % (Auto) Neut # (Auto) Lymph # (Auto) Bowman # (Auto) Eos # (Auto) Baso # (Auto) WBC Differential Seg Neuts % (Manual) Band Neuts % (Manual) Lymphocytes % (Manual) Monocytes % (Manual) Basophils % (Manual) Metamyelocytes % (Man) Abs Neuts (Manual) Differential Comment Toxic Granulation Toxic Vacuolation Platelet Estimate Platelet Morphology Basophilic Stippling PT INR APTT Fibrinogen Puncture Site Patient Temperature O2 Saturation ABG pH ABG pCO2 ABG pO2 ABG HCO3 ABG O2 Content ABG Base Excess ABG Methemoglobin Jamar Test Hemoglobin Carboxyhemoglobin O2 Delivery Device Vent Setting Inspired O2 Critical Value Sodium Potassium 5.2 H Chloride Carbon Dioxide Anion Gap BUN Creatinine Estimated GFR POC Glucose 148 H Random Glucose Lactic Acid Calcium Prot Corrected Calcium Phosphorus Magnesium Total Bilirubin AST ALT Alkaline Phosphatase Ammonia Total Creatine Kinase 586 H CK-MB (CK-2) 2.1 CK-MB (CK-2) % 0.4 Total Protein Albumin Lipase Beta-Hydroxybutyric Acd TSH Free T4 Free T3 Urine Color Urine Clarity Urine pH Ur Specific Solomon Urine Protein Urine Glucose (UA) Urine Ketones Urine Occult Blood Urine Nitrate Urine Bilirubin Urine Urobilinogen Ur Leukocyte Esterase Urine RBC Urine WBC Ur Squamous Epith Cells Urine Bacteria Hyaline Casts Urine Mucus Micro UA Comment Urine Culture Comments Nasal Screen MRSA (PCR) Salicylates Urine Opiates Screen Acetaminophen Ur Barbiturates Screen Ur Amphetamines Screen U Benzodiazepines Scrn Urine Cocaine Screen U Cannabinoids Screen Serum Alcohol - Imaging Impressions Abdomen/Pelvis CT 10/30/17 17:35 CONCLUSION: 1. Mild colitis predominantly on the right side with trace free fluid and some inflammatory changes on the right. No bowel obstruction. No free air. 2. Multiple layering gallstones. 3. Subsegmental basilar airspace consolidation in the lungs. Differential diagnosis includes mild pneumonia. 4. Fatty liver enlarged to 25 cm. Chest X-Ray 10/30/17 17:35 CONCLUSION: Subsegmental basilar airspace disease, right greater than left. Differential diagnosis includes pneumonia and atelectasis, in patient with fever. Head CT 10/30/17 17:35 CONCLUSION: 1. No acute intracranial abnormalities. . Chest CTA 10/30/17 19:02 CONCLUSION: 1. Suboptimal bolus but no evidence for central pulmonary emboli. 2. Patchy airspace consolidation right lung base most characteristic of pneumonia. No significant effusion. Foot X-Ray 10/30/17 21:27 CONCLUSION: No acute findings. Mild degenerative change in the right foot. Prominent calcaneal bone spurs. Foot X-Ray 10/30/17 21:27 CONCLUSION: No acute findings. Moderate degenerative change. Bone spurs posterior calcaneus. Lumbar Spine CT 10/30/17 21:43 CONCLUSION: 1. No acute fracture. 2. 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 3. At L5-S1 there is a small central disc protrusion. Mild bilateral foraminal encroachment. Thoracic Spine CT 10/30/17 21:43 CONCLUSION: 1. Negative for acute traumatic injury to the thoracic spine. Small Schmorl's nodes in the lower thoracic spine. Chest X-Ray 10/31/17 01:38 CONCLUSION: 1. Interval intubation and placement of right internal jugular central venous line with no pneumothorax. 2. Placement of nasogastric tube. 3. Mid inspiratory study with crowding of the lung vasculature. <Michael Cordero - Last Filed: 10/31/17 13:25> Assessment and Plan - Plan Assessment: - Colitis As stated in HPI, pt currently sedated and intubated, however was responsive on arrival and therefore Dr. Abdullahi was able to obtain some history. Pt did report complaints of diarrhea, unsure how much or for how long. Did deny hematochezia and melena. Denied any abdominal pain and was not tender on exam. CT abdomen and pelvis W IV contrast --> Mild colitis predominantly on the right side with trace free fluid and some inflammatory changes on the right. No bowel obstruction. No free air. Multiple layering gallstones. Subsegmental basilar airspace consolidation in the lungs. Fatty liver enlarged to 25 cm. - ETOH abuse- Pt reportedly had been binge drinking since Monday Labs consistent with ETOH- [id number] Abdullahi, will hold on steroids given septic shock, Pentoxifylline not an option-pt has OG and this can not be crushed (10/31) AST-173 ALT-36 T bili-6.5 Alk [id number] ? cirrhosis- Thrombocytopenia (platelets-70) Coagulopathy (INR 2.1) Hypoalbuminemia (albumin-2.5) Ammonia-44 - Septic shock - leukocytosis, elevated lactic acid, febrile- Pt requiring pressors at this time Unknown source. cellulitis on feet vs PNA vs colitis Plan: Stool studies Agree with Kevin for possible infectious cause of colitis Pt on 100% FiO2 and pressors, no colonoscopy at this time Avoid hepatotoxins No steroids at this time because of septic shock Can not do Pentoxifylline because this can not be crushed and pt has OG Lactulose Monitor labs Alcohol withdraw protocol Continue with supportive care Further recommendations to follow Pt has been seen and examined by myself and Dr. Leyva and this note is written on his behalf <Abigail Murillo - Last Filed: 10/31/17 09:06> - Plan Seen and examined, no bleeding, no diarrhea reported. ? flexible sigmoidoscopy depending upon clinical course. Check stool studies. - Attending Attestation The exam, history, and the medical decision-making described in the above note were completed with the assistance of the mid-level provider. I reviewed and agree with the findings presented. I attest that I had a [id number] encounter with the patient on the same day, and personally performed and documented my assessment and findings in the medical record. <Michael Cordero - Last Filed: 10/31/17 13:25>
[2017-10-31] MEDS ORDERED: Mag Sulf 1 gm/100 ml Premix 100 ML IV.SIG ONE (10:00)
[2017-10-31] MEDS ORDERED: Calcium Chloride Inj 1 GM in Sodium Chlor 0.9% Inj 100 ML IV.SIG ONE (10:00)
[2017-10-31] MEDS: Mag Sulf 1 gm/100 ml Premix 100 ML IV.SIG SCH ×2 (10:34→12:02)
[2017-10-31] MEDS: Heparin - SQ 10,000 UNITS/ML Vial SQ SCH (10:35)
[2017-10-31] MEDS ORDERED: Dextrose 50% in Water 50 ML Vial IV.PUSH PRN (12:26)
--- NOTE | 2017-10-31 12:36 | P.PNCC ---
Subjective Subjective Remarks/Hospital Course: 52-year-old male with a past medical history of alcohol dependence who sought medical attention after a friend found him in the hotel room with fever and ill appearance after episode of binge drinking. Patient has multiple bruises and states he has been falling often which he attributes to poor footwear. His primary complaint is pain and tenderness of his sacrum and L4/L5 region. Denies IVDU. Denies CP, SOB, Cough, sputum production, urinary symptoms , abdominal pain, nausea, vomiting, headache, neck pain, neck stiffness. He does report some diarrhea, nonbloody, non melena and difficult to quantify. He says he has "always drank EtOH heavily, but it has been drinking more than usual over the last 2 weeks". He is tremulous, hypertensive, tachycardic with clinical appearance of EtOH withdrawal. ED workup included CT brain which is negative, CT chest with RLL consolidation, CT abd/pelvis with wall thickening c/ w colitis of ascending/transverse colon. WBC 23.5, lactic acid 11.4. In the ED he has received vancomycin, piperacillin/tazobactam, NS 2 L bolus, magnesium sulfate 1 gram IV, Ativan 2 mg IV, Thiamine 100 mg IV, Ofirmev 1 gram IV. SUBJECTIVE: 10/31: Remains on norepinephrine drip at 8 mcg/min. Weaning FiO2 and ventilator. Minimal response on the ventilator on propofol and dexmedetomidine drips. MRI of the lumbar spine, sacrum and foot will be performed this afternoon. Noted gram-positive cocci bacteremia. 2D echocardiogram ordered repeat blood cultures today. Currently on vancomycin and piperacillin/ tazobactam. Objective Vital Signs / I&O: Vital Signs 10/30/17 17:14 10/30/17 17:28 10/30/17 18:21 Temperature 103 F H 101.2 F H Pulse Rate 131 H 136 H 130 H Respiratory Rate 20 22 22 Blood Pressure 129/58 L 122/78 Pulse Oximetry 95 95 96 10/30/17 18:48 10/30/17 22:24 10/30/17 23:00 Temperature 102.7 F H Pulse Rate 120 H 135 H Respiratory Rate 22 40 H Blood Pressure 182/84 H 145/75 H Pulse Oximetry 94 L 89 L 10/30/17 23:56 10/31/17 00:00 10/31/17 04:00 Temperature 103.1 F H 100 F H Pulse Rate 130 H 111 H Respiratory Rate 33 H 14 Blood Pressure 120/69 81/54 L Pulse Oximetry 89 L 95 95 10/31/17 06:00 10/31/17 07:40 10/31/17 08:00 Temperature Pulse Rate 109 H Respiratory Rate 26 H Blood Pressure Pulse Oximetry 100 104 H 10/31/17 08:45 10/31/17 10:00 10/31/17 11:22 Temperature Pulse Rate 106 H 104 H 104 H Respiratory Rate 26 H Blood Pressure Pulse Oximetry 10/31/17 11:25 Temperature Pulse Rate Respiratory Rate 23 Blood Pressure Pulse Oximetry Intake & Output 10/30/17 10/31/17 10/31/17 18:59 06:59 18:59 Intake Total 5638 / 5638 1450 / 1450 Output Total 600 / 600 Balance 5038 / 5038 1450 / 1450 Weight 127.006 kg 128.5 kg Intake: IV 3400 / 3400 1450 / 1450 LR 1000 mL Inj 1,000 ML @ 150 1000 / 1000 mls/hr IV.CONT .Q6H40M [facility] Rx#: [id number] Diprivan 1000 mg/100 ml Inj 1, 100 / 100 100 / 100 000 mg In 100 ml @ 5 MCG/KG/MIN 3.81 mls/hr IV.CONT TITRATE PRN Rx#:[id number] Ofirmev Inj 1,000 mg In 100 ml 100 / 100 @ 400 mls/hr IV.SIG ONCE ONE Rx #:[id number] Magnesium Sulfate 1 gm/D5W 100 100 / 100 100 / 100 ml Premix 100 ML @ 100 mls/hr IV.SIG Q1H [facility] Rx#:[id number] Levophed Inj 4 MG In NS Inj 246 250 / 250 ML @ 2 MCG/MIN 7.5 mls/hr IV. SIG TITRATE PRN Rx#:[id number] Zosyn 3.375 GM Premix 50 ML @ 100 / 100 100 mls/hr IV.SIG Q6H [facility] Rx#: [id number] NS Inj 1,000 ML @ Wide Open IV. 3000 / 3000 SIG .Q0M [facility] Rx#:[id number] Other 2238 / 2238 Output: Urine 300 / 300 Gastric Drainage 300 / 300 Orogastric Tube 300 / 300 Result Diagrams: 10/31/17 04:18 10/31/17 12:04 Other Results: Microbiology 10/30/17 17:50 Blood - Peripheral Aerobic Blood Culture - Preliminary Group A beta (Strep pyogenes) 10/30/17 17:50 Blood - Peripheral Anaerobic Blood Culture - Preliminary gram positive cocci 10/30/17 17:50 Blood - Peripheral Aerobic Blood Culture - Preliminary gram positive cocci 10/30/17 17:50 Blood - Peripheral Anaerobic Blood Culture - Preliminary gram positive cocci 10/31/17 01:10 Urine - Catheterized Urine Streptococcus pneumoniae Antigen ( M - Final Presumptive negative for streptococcus pneumoniae antigen, suggesting no current or recent infection. Infection due to Streptococcus pneumoniae cannot be ruled out since the antigen present in the sample may be below the detection limit of the test. 10/31/17 01:10 Urine - Catheterized Urine Legionella Antigen - Final Presumptive negative for Legionella pneumophila serogroup 1 antigen in urine, suggesting no recent or recurrent infection. Infection due to Legionella cannot be ruled out since other serogroups and species may cause disease, antigen may not be present in urine in early infection, and the level of antigen present in the urine may be below the detection limit of the test. 10/31/17 04:55 Sputum - Endotracheal Gram Stain - Final 10/31/17 02:30 Nasal Wash Influenza Types A,B Antigen - Final Negative for FLU A and B antigen Infection due to influenza A or B cannot be ruled out since the antigen present in the sample may be below the detection limit of the test. Imaging: Abdomen/Pelvis CT 10/30/17 17:35 CONCLUSION: 1. Mild colitis predominantly on the right side with trace free fluid and some inflammatory changes on the right. No bowel obstruction. No free air. 2. Multiple layering gallstones. 3. Subsegmental basilar airspace consolidation in the lungs. Differential diagnosis includes mild pneumonia. 4. Fatty liver enlarged to 25 cm. Chest X-Ray 10/30/17 17:35 CONCLUSION: Subsegmental basilar airspace disease, right greater than left. Differential diagnosis includes pneumonia and atelectasis, in patient with fever. Head CT 10/30/17 17:35 CONCLUSION: 1. No acute intracranial abnormalities. . Chest CTA 10/30/17 19:02 CONCLUSION: 1. Suboptimal bolus but no evidence for central pulmonary emboli. 2. Patchy airspace consolidation right lung base most characteristic of pneumonia. No significant effusion. Foot X-Ray 10/30/17 21:27 CONCLUSION: No acute findings. Mild degenerative change in the right foot. Prominent calcaneal bone spurs. Foot X-Ray 10/30/17 21:27 CONCLUSION: No acute findings. Moderate degenerative change. Bone spurs posterior calcaneus. Lumbar Spine CT 10/30/17 21:43 CONCLUSION: 1. No acute fracture. 2. 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 3. At L5-S1 there is a small central disc protrusion. Mild bilateral foraminal encroachment. Thoracic Spine CT 10/30/17 21:43 CONCLUSION: 1. Negative for acute traumatic injury to the thoracic spine. Small Schmorl's nodes in the lower thoracic spine. Chest X-Ray 10/31/17 01:38 CONCLUSION: 1. Interval intubation and placement of right internal jugular central venous line with no pneumothorax. 2. Placement of nasogastric tube. 3. Mid inspiratory study with crowding of the lung vasculature. Objective Remarks: GENERAL: 52-year-old male currently orotracheally intubated HEAD: Atraumatic. Normocephalic. EYES: Pupils equal and round, 1 mm and briskly reactive bilaterally. Ecchymosis right upper eyelid. Subconjunctival hemorrhage on right lateral and inferior bulbar conjunctiva. ENT: No nasal bleeding or discharge. Mucous membranes dry and pink. Oropharynx without exudate. NECK: Trachea midline. No JVD. No meningismus CARDIOVASCULAR: Tachycardic,RR. S1, S2 no S4. Faint 1/6 murmur pansystolic RESPIRATORY: Diminished breath sounds throughout. No wheezing. GASTROINTESTINAL: Abdomen obese and protuberant but soft, non-tender to palpation. Bowel sounds hypoactive. MUSCULOSKELETAL/SKIN: Extremities without significant peripheral edema. Deep tissue injury medial aspect right lower extremity with chronic venous stasis changes. There is erythema and warmth of dorsum of right 1st toe. There is ulceration on plantar aspect of left 1st toe, slightly smaller than size of a quarter with some fluctuance and tenderness, no exudate. Left 3rd toe with scaling, no appreciable warmth or erythema. DP pulses intact bilat. NEUROLOGICAL: Cranial nerves II through XII grossly intact. Withdraws to pain bilateral upper lower extremities. Currently not following commands. Positive gag and cough and corneal reflex. Assessment and Plan - Assessment and Plan Plan: NEURO/PSYCH: EtOH dependence - 147 on admission Delirium tremens Acute toxic metabolic encephalopathy secondary to hyperammonemia CT brain 10/30- for acute intracranial abnormality Currently on propofol drip at 25 mcg/kg/min and dexmedetomidine drip at 0.2 mcg/ kg/hr. Discontinued dexmedetomidine and start fentanyl drip for sedation/ analgesia while intubated Goal of RASS -2 Daily sedation when clinically appropriate Continue thiamine/folic acid/multivitamin IV bag 3 days. Continue to evaluate for DTs/seizure precaution EEG Acetaminophen 650 mg p.o. every 8 hours as needed fever RESP: Acute respiratory failure Aspiration pneumonia Intubated 10/31 for airway protection. [facility] Ventilator bundle Albuterol/ipratropium aerosols every 4 hours with albuterol aerosols every 2 hours as needed CPAP trial and ventilator weaning when stabilized CV: Septic shock with hypotension Lactic acidemia Clinically appeared very volume depleted. Received 5 L of crystalloid in the form of bolus. We will continue LR at 150 mL/h. Norepinephrine drip to maintain mean arterial pressure greater than 65. Trend lactic acid every 6 hours until cleared 2D echocardiogram ordered. Check CPK - 586 and troponin GI: Right/transverse mild colitis/acute Alcoholic hepatitis Hepatic steatosis Hepatosplenomegaly. Liver is 25 cm. Cholelithiasis OG tube inserted in place to low intermittent wall suction following intubation. Normal-appearing GI secretions CT abdomen and pelvis demonstrates thickening of right colon extending into transverse colon. There is hepatomegaly and steatosis.. Clinical exam upon presentation was benign and did not appear c/w mesenteric ischemia. We will continue to monitor serial abdominal exams and lactic acid. Send stool for C. difficile. GI consult. Appreciated. Checked ammonia level which is mildly elevated. Will initiate lactulose once resuscitated and hemodynamics are improved FEN/RENAL: Acute kidney injury Insert Argueta to monitor intake and output every hour in the setting of shock and acute kidney injury. Replace electrolytes as indicated per ICU electrolyte replacement protocol. No hydronephrosis on CT abdomen/pelvis. Monitor urine output Accurate I's and O's Noted did receive dye load 10/30. Check urine electrolytes and eosinophils ID: Gram-positive cocci bacteremia Cellulitis toes bilaterally Aspiration pneumonia, right lower lobe, present on admission He received piperacillin/tazobactam and vancomycin in the emergency department. We will continue. Pertinent cultures Blood culture x 2 10/30 -gram-positive cocci/strep pyogenes -repeat blood cultures 24 hours at 1730 Sputum 10/31 -pending Follow-up C diff, urine, pneumococcal antigen, urine Legionella antigen. An influenza a and B- Obtain MRI bilat feet, lumbar spine and sacrum to evaluate for osteo. Obtain 2D echocardiogram rule out endocarditis Infectious disease consultation HEME: Acute coagulopathy DIC - Leukocytosis Macrocytic anemia Thrombocytopenia Monitor coags/CBC/platelets. There is no significant active bleeding at this time, mild oozing at CVL insertion site. phytonadione 10 mg IV 1 now. Recheck CBC and coags and fibrinogen in a.m. ENDO: Acute hyperglycemia TSH 0.25. Low T3 at 1.57. Low normal T4. ? undiagnosed diabetes mellitus. Will check hemoglobin A1c. Sliding-scale insulin with aspart insulin with Accu-Cheks every 6 hours to maintain euglycemia/medium regimen MSK: Elevated BMI Low back pain L5/S1 disc protrusion Pars defect L4/L5 Weight loss encouraged MRI lumbar spine/sacrum with tenderness to evaluate for possible infectious etiology. PROPH: SCDs for DVT prophylaxis. Avoid pharmacologic DVT prophylaxis at this time due to coagulopathy. Lansoprazole for stress ulcer prophylaxis ACCESS: Right IJ central venous line placed 10/31. Left radial arterial line placed 11/01. Level 2 follow-up
[2017-10-31 13:10] LABS: CKMB Percent 0.4 % (0.0-4.0); Creatine Kinase MB 2.1 ng/mL (0.5-3.6)
--- NOTE | 2017-10-31 13:32 | MG ---
cc: Dalia Rahman MD EEG NUMBER: [id number]. REFERRAL PHYSICIAN: Dr. Abdullahi PATIENT INFORMATION: Room 509 with photic done. 25 mcg of propofol, 0.2 mcg, kg per hour . Intubated. CT negative. Evaluated for fever, found by a friend at a hotel room with bruising on him, dried blood on his face and toes. Admits to binge drinking at least one fifth of alcohol since Monday. History of alcohol dependence on antibiotics as well as sedation as described. DESCRIPTION OF RECORD: Overall slowing of background predominantly of 3 Hz, 4 Hz. EKG looks artifactual and cannot be interpreted. Photic stimulation, questionable driving, mild driving response. IMPRESSION: Abnormal electroencephalogram due to background slowing moderate likely consistent with encephalopathic process versus medicine effect, but no evidence of any epileptic activity. Dalia Rahman MD DF/DL , 01:16 PM , 01:23 PM
[2017-10-31] MEDS ORDERED: Phytonadione Inj 10 MG in Sodium Chlor 0.9% Inj 50 ML IV.SIG ONE (15:00)
--- NOTE | 2017-10-31 15:09 | P.PNPOD ---
Subjective Interval history: Attempted to see patient. Patient in MRI, will review MRI and evaluate patient tomorrow. Physical Exam Vital signs: Vital Signs 10/30/17 17:14 10/30/17 17:28 10/30/17 18:21 Temperature 103 F H 101.2 F H Pulse Rate 131 H 136 H 130 H Respiratory Rate 20 22 22 Blood Pressure 129/58 L 122/78 Pulse Oximetry 95 95 96 10/30/17 18:48 10/30/17 22:24 10/30/17 23:00 Temperature 102.7 F H Pulse Rate 120 H 135 H Respiratory Rate 22 40 H Blood Pressure 182/84 H 145/75 H Pulse Oximetry 94 L 89 L 10/30/17 23:56 10/31/17 00:00 10/31/17 04:00 Temperature 103.1 F H 100 F H Pulse Rate 130 H 111 H Respiratory Rate 33 H 14 Blood Pressure 120/69 81/54 L Pulse Oximetry 89 L 95 95 10/31/17 06:00 10/31/17 07:40 10/31/17 08:00 Temperature Pulse Rate 109 H Respiratory Rate 26 H Blood Pressure Pulse Oximetry 100 104 H 10/31/17 08:45 10/31/17 10:00 10/31/17 11:22 Temperature Pulse Rate 106 H 104 H 104 H Respiratory Rate 26 H Blood Pressure Pulse Oximetry 10/31/17 11:25 Temperature Pulse Rate Respiratory Rate 23 Blood Pressure Pulse Oximetry Intake & Output 10/30/17 10/31/17 10/31/17 18:59 06:59 18:59 Intake Total 5638 / 5638 1450 / 1450 Output Total 600 / 600 Balance 5038 / 5038 1450 / 1450 Weight 127.006 kg 128.5 kg Intake: IV 3400 / 3400 1450 / 1450 LR 1000 mL Inj 1,000 ML @ 150 1000 / 1000 mls/hr IV.CONT .Q6H40M [place] Rx#: [id number] Diprivan 1000 mg/100 ml Inj 1, 100 / 100 100 / 100 000 mg In 100 ml @ 5 MCG/KG/MIN 3.81 mls/hr IV.CONT TITRATE PRN Rx#:[id number] Ofirmev Inj 1,000 mg In 100 ml 100 / 100 @ 400 mls/hr IV.SIG ONCE ONE Rx #:[id number] Magnesium Sulfate 1 gm/D5W 100 100 / 100 100 / 100 ml Premix 100 ML @ 100 mls/hr IV.SIG Q1H [facility] Rx#:[id number] Levophed Inj 4 MG In NS Inj 246 250 / 250 ML @ 2 MCG/MIN 7.5 mls/hr IV. SIG TITRATE PRN Rx#:[id number] Zosyn 3.375 GM Premix 50 ML @ 100 / 100 100 mls/hr IV.SIG Q6H [facility] Rx#: [id number] NS Inj 1,000 ML @ Wide Open IV. 3000 / 3000 SIG .Q0M [facility] Rx#:[id number] Other 2237 / 2237 Output: Urine 300 / 300 Gastric Drainage 300 / 300 Orogastric Tube 300 / 300 Medications and Allergies Active Medications: Active Medications Acetaminophen (Tylenol Liq) 650 mg PO Q8H PRN PRN Reason: FEVER Al Hydroxide/Mg Hydroxide (Milk Of Magnesia Liq) 30 ml PO Q12H PRN PRN Reason: Mild Constipation Albuterol (Duoneb Neb ([place])) 1 ampul NEB Q4HR NEB [facility] Albuterol (Albuterol Neb (Prn)) 2.5 mg NEB Q2HR NEB PRN PRN Reason: DYSPNEA Artificial Tears (Genteal Severe Dry Eye Relief 0.3% Opth Gel) 1 drops EACH EYE BID [facility] Bisacodyl (Dulcolax Supp) 10 mg RECTAL DAILY PRN PRN Reason: SEVERE CONSITIPATION Chlorhexidine Gluconate (Chlorhexidine 2% Cloth) 3 pack TOPICAL DAILY@0400 [facility] Stop: 11/05/17 03:59 Last Admin: 10/31/17 05:10 Dose: 3 pack Chlorhexidine Gluconate (Chlorhexidine 2% Cloth) 3 pack TOPICAL DAILY@0400 PRN PRN Reason: Extra cloth needed Stop: 11/05/17 03:59 Chlorhexidine Gluconate (Peridex 0.12% Oral Kit) 15 ml OROPHARYNG BID@0800, 1999 [facility] Last Admin: 10/31/17 08:02 Dose: 15 ml Dextrose (D50w Vial) 50 ml IV.PUSH UNSCH PRN PRN Reason: PER HYPOGLYCEMIA PROTOCOL Glucagon (Glucagon Inj) 1 mg OTHER PRN PRN PRN Reason: for Hypoglycemia Protocol Sodium Chloride (Ns Inj) 1,000 mls @ 0 mls/hr IV.SIG .Q0M [facility] Last Infusion: 10/30/17 19:36 Dose: Infused Sodium Chloride (Ns Inj) 1,000 mls @ 0 mls/hr IV.SIG .Q0M [facility] Last Infusion: 10/30/17 21:32 Dose: Infused Lactated Ringer's (Lr 1000 Ml Inj) 1,000 mls @ 150 mls/hr IV.CONT .Q6H40M [facility] Last Admin: 10/31/17 08:01 Dose: 125 mls/hr Pharmacy Profile Note (Vancomycin Consult Pharmacy) 0 mls @ 0 mls/hr OTHER UNSCH [facility] Piperacillin/Tazobactam/Dextrose (Zosyn 3.375 Gm Premix) 50 mls @ 100 mls/hr IV.SIG Q6H [facility] Last Admin: 10/31/17 08:00 Dose: 100 mls/hr Multivitamins 10 ml/ Thiamine HCl 100 mg/ Folic Acid 1 mg/Sodium Chloride 511.2 mls @ 127.8 mls/hr IV.SIG Q24H [facility] Stop: 11/03/17 22:59 Vancomycin HCl 1,700 mg/ (Sodium Chloride) 517 mls @ 250 mls/hr IV.SIG Q12H [facility] Last Admin: 10/31/17 06:17 Dose: 250 mls/hr Magnesium Sulfate Inj 4 gm/ (Sodium Chloride) 100 mls @ 50 mls/hr IV.SIG UNSCH PRN PRN Reason: For Magnesium 0.9 - 1.1 mg/dL Magnesium Sulfate Inj 2 gm/ (Sodium Chloride) 100 mls @ 50 mls/hr IV.SIG UNSCH PRN PRN Reason: For Magnesium 1.2 - 1.6 mg/dL Potassium Chloride (Kcl 40 Meq Premix Inj) 40 meq in 100 mls @ 25 mls/hr IV.SIG Q2H PRN PRN Reason: For Potassium 2.8 - 3.2 mEq/L Potassium Chloride (Kcl 40 Meq Premix Inj) 40 meq in 100 mls @ 25 mls/hr IV.SIG UNSCH PRN PRN Reason: For Potassium 3.3 - 3.5 mEq/L Potassium Chloride (Kcl 20 Meq Premix Inj) 20 meq in 100 mls @ 50 mls/hr IV.SIG Q2H PRN PRN Reason: For Potassium 2.8 - 3.2 mEq/L Potassium Phosphate 30 mmol/ (Sodium Chloride) 260 mls @ 42 mls/hr IV.SIG UNSCH PRN PRN Reason: SEE LABEL COMMENTS Potassium Chloride (Kcl 20 Meq Premix Inj) 20 meq in 100 mls @ 50 mls/hr IV.SIG Q2H PRN PRN Reason: For Potassium 3.3 - 3.5 mEq/L Sodium Phosphate 30 mmol/ (Sodium Chloride) 260 mls @ 42 mls/hr IV.SIG UNSCH PRN PRN Reason: For Phosphorus < 2.5 mg/dL Propofol (Diprivan 1000 Mg/100 Ml Inj) 1,000 mg in 100 mls @ 3.81 mls/hr IV.CONT TITRATE PRN; Protocol PRN Reason: Per Protocol Last Admin: 10/31/17 12:02 Dose: 25 mcg/kg/min, 19.05 mls/hr Norepinephrine Bitartrate 4 mg (/ Sodium Chloride) 250 mls @ 7.5 mls/hr IV.SIG TITRATE PRN; Protocol PRN Reason: Per Protocol Last Admin: 10/31/17 12:19 Dose: 7 mcg/min, 26.25 mls/hr Fentanyl (Fentanyl 10 Mcg/Ml Premix Drip) 2,500 mcg in 250 mls @ 5 mls/hr IV.SIG TITRATE PRN; Protocol PRN Reason: Per Protocol Phytonadione 10 mg/ Sodium (Chloride) 51 mls @ 102 mls/hr IV.SIG ONCE ONE Stop: 10/31/17 15:29 Insulin Aspart (Novolog Insulin Correctional Sugar Inj) 0 unit SQ Q6HR [place]; Protocol Lactulose (Lactulose Liq) 30 ml PO DAILY PRN PRN Reason: SEVERE CONSITIPATION Lactulose (Lactulose Liq) 30 ml PO BID [place] Lansoprazole (Prevacid Solutab) 30 mg NG/OG DAILY [place] Lorazepam (Ativan) 1 mg PO Q4H PRN PRN Reason: for CIWA 8-10 Lorazepam (Ativan) 2 mg PO Q2H PRN PRN Reason: for CIWA 11-14 Magnesium Oxide (Mag-Ox) 800 mg PO UNSCH PRN PRN Reason: For Magnesium 1.2 - 1.6 mg/dL Miscellaneous Information ([facility] Ordered Lab Info) 0 each OTHER ONCE ONE Stop: 11/01/17 05:46 Potassium Bicarb/Potassium Chloride (K-Lyte Cl Eff) 50 meq PO UNSCH PRN PRN Reason: For Potassium 3.3 - 3.5 mEq/L Potassium Phosphate (K-Phos Original) 2,000 mg PO Q4H PRN PRN Reason: Phosphorus Less Than 2.5 mg/dL Potassium Phosphate (K-Phos Original) 2,000 mg PO UNSCH PRN PRN Reason: SEE LABEL COMMENTS Senna/Docusate Sodium (Leatha-Colace) 1 tab PO BID [facility] Last Admin: 10/31/17 08:02 Dose: 1 tab Sennosides (Senokot) 17.2 mg PO Q12H PRN PRN Reason: Moderate Constipation Sodium Chloride (Ns Flush) 2 ml IV.FLUSH BID [facility] Last Admin: 10/31/17 08:02 Dose: 2 ml Sodium Chloride (Ns Flush) 2 ml IV.FLUSH PRN PRN PRN Reason: FLUSH AFTER USING IV ACCESS Terbutaline Sulfate (Brethine Inj) 1 mg SQ UNSCH PRN PRN Reason: For Extravasation Allergies Allergy/AdvReac Type Severity Reaction Status Date / Time No Known Allergies Allergy Unverified 10/30/17 17:35 Home Medications Medication Instructions Recorded Confirmed Type No Known Home Medications 10/30/17 10/30/17 History Results - Labs CBC & Chem 7: 10/31/17 04:18 10/31/17 12:04 Laboratory Results - last 24 hr 10/30/17 10/30/17 10/30/17 17:39 17:39 17:39 WBC 23.5 H RBC 3.74 L Hgb 13.1 Hct 39.2 MCV 104.6 H MCH 35.1 H MCHC 33.5 RDW 13.9 Plt Count 76 L MPV 9.0 Prelim Diff (Auto) Slide review pending Neut % (Auto) 93.9 H Lymph % (Auto) 2.2 L [place] % (Auto) 3.7 Eos % (Auto) 0.0 Baso % (Auto) 0.2 Neut # (Auto) 22.0 H Lymph # (Auto) 0.5 L [place] # (Auto) 0.9 Eos # (Auto) 0.0 Baso # (Auto) 0.0 WBC Differential Manual diff final Seg Neuts % (Manual) 67 Band Neuts % (Manual) 26 H Lymphocytes % (Manual) Monocytes % (Manual) 5 Basophils % (Manual) 1 Metamyelocytes % (Man) 1 Abs Neuts (Manual) 22.1 H Differential Comment . Toxic Granulation Toxic Vacuolation Present H Platelet Estimate Low L Platelet Morphology Normal Basophilic Stippling Faint H PT 19.4 H INR 1.9 APTT 43.2 H Fibrinogen Puncture Site Patient Temperature O2 Saturation ABG pH ABG pCO2 ABG pO2 ABG HCO3 ABG O2 Content ABG Base Excess ABG Methemoglobin Jamar Test Hemoglobin Carboxyhemoglobin O2 Delivery Device Vent Setting Inspired O2 Critical Value Sodium 135 L Potassium 4.4 Chloride 98 Carbon Dioxide 19.5 L Anion Gap 18 H BUN 7 Creatinine 1.33 H Estimated GFR 56 L POC Glucose Random Glucose 260 H Lactic Acid Calcium 7.8 L Prot Corrected Calcium Phosphorus Magnesium 1.1 L Total Bilirubin 5.4 H AST 174 H ALT 39 Alkaline Phosphatase 269 H Ammonia Total Creatine Kinase CK-MB (CK-2) CK-MB (CK-2) % Total Protein 7.8 Albumin 2.6 L Lipase 59 L Beta-Hydroxybutyric Acd TSH Free T4 Free T3 Urine Color Urine Clarity Urine pH Ur Specific [place] Urine Protein Urine Glucose (UA) Urine Ketones Urine Occult Blood Urine Nitrate Urine Bilirubin Urine Urobilinogen Ur Leukocyte Esterase Urine RBC Urine WBC Ur Squamous Epith Cells Urine Bacteria Hyaline Casts Urine Mucus Micro UA Comment Urine Culture Comments Nasal Screen MRSA (PCR) Salicylates Urine Opiates Screen Acetaminophen Ur Barbiturates Screen Ur Amphetamines Screen U Benzodiazepines Scrn Urine Cocaine Screen U Cannabinoids Screen Serum Alcohol 10/30/17 10/30/17 10/30/17 17:39 17:39 17:39 WBC RBC Hgb Hct MCV MCH MCHC RDW Plt Count MPV Prelim Diff (Auto) Neut % (Auto) Lymph % (Auto) [place] % (Auto) Eos % (Auto) Baso % (Auto) Neut # (Auto) Lymph # (Auto) [place] # (Auto) Eos # (Auto) Baso # (Auto) WBC Differential Seg Neuts % (Manual) Band Neuts % (Manual) Lymphocytes % (Manual) Monocytes % (Manual) Basophils % (Manual) Metamyelocytes % (Man) Abs Neuts (Manual) Differential Comment Toxic Granulation Toxic Vacuolation Platelet Estimate Platelet Morphology Basophilic Stippling PT INR APTT Fibrinogen Puncture Site Patient Temperature O2 Saturation ABG pH ABG pCO2 ABG pO2 ABG HCO3 ABG O2 Content ABG Base Excess ABG Methemoglobin Jamar Test Hemoglobin Carboxyhemoglobin O2 Delivery Device Vent Setting Inspired O2 Critical Value Sodium Potassium Chloride Carbon Dioxide Anion Gap BUN Creatinine Estimated GFR POC Glucose Random Glucose Lactic Acid Calcium Prot Corrected Calcium Phosphorus 1.2 L Magnesium Total Bilirubin AST ALT Alkaline Phosphatase Ammonia Total Creatine Kinase CK-MB (CK-2) CK-MB (CK-2) % Total Protein Albumin Lipase Beta-Hydroxybutyric Acd TSH 0.250 L Free T4 Free T3 Urine Color Urine Clarity Urine pH Ur Specific [place] Urine Protein Urine Glucose (UA) Urine Ketones Urine Occult Blood Urine Nitrate Urine Bilirubin Urine Urobilinogen Ur Leukocyte Esterase Urine RBC Urine WBC Ur Squamous Epith Cells Urine Bacteria Hyaline Casts Urine Mucus Micro UA Comment Urine Culture Comments Nasal Screen MRSA (PCR) Salicylates Less than 1.7 L Urine Opiates Screen Acetaminophen Less than 2.0 L Ur Barbiturates Screen Ur Amphetamines Screen U Benzodiazepines Scrn Urine Cocaine Screen U Cannabinoids Screen Serum Alcohol 147 H 10/30/17 10/30/17 10/30/17 17:45 17:45 19:29 WBC RBC Hgb Hct MCV MCH MCHC RDW Plt Count MPV Prelim Diff (Auto) Neut % (Auto) Lymph % (Auto) [place] % (Auto) Eos % (Auto) Baso % (Auto) Neut # (Auto) Lymph # (Auto) [place] # (Auto) Eos # (Auto) Baso # (Auto) WBC Differential Seg Neuts % (Manual) Band Neuts % (Manual) Lymphocytes % (Manual) Monocytes % (Manual) Basophils % (Manual) Metamyelocytes % (Man) Abs Neuts (Manual) Differential Comment Toxic Granulation Toxic Vacuolation Platelet Estimate Platelet Morphology Basophilic Stippling PT INR APTT Fibrinogen Puncture Site Patient Temperature O2 Saturation ABG pH ABG pCO2 ABG pO2 ABG HCO3 ABG O2 Content ABG Base Excess ABG Methemoglobin Jamar Test Hemoglobin Carboxyhemoglobin O2 Delivery Device Vent Setting Inspired O2 Critical Value Sodium Potassium Chloride Carbon Dioxide Anion Gap BUN Creatinine Estimated GFR POC Glucose Random Glucose Lactic Acid 11.4 H* Calcium Prot Corrected Calcium Phosphorus Magnesium Total Bilirubin AST ALT Alkaline Phosphatase Ammonia Total Creatine Kinase CK-MB (CK-2) CK-MB (CK-2) % Total Protein Albumin Lipase Beta-Hydroxybutyric Acd TSH Free T4 Free T3 Urine Color [place] Urine Clarity Hazy H Urine pH 5.0 Ur Specific [place] 1.017 Urine Protein Negative Urine Glucose (UA) 50 Urine Ketones Negative Urine Occult Blood Negative Urine Nitrate Negative Urine Bilirubin Negative Urine Urobilinogen 4 or greater Ur Leukocyte Esterase Negative Urine RBC 1 Urine WBC 3 Ur Squamous Epith Cells <1 Urine Bacteria Rare H Hyaline Casts 6 Urine Mucus Few H Micro UA Comment Culture not ind Urine Culture Comments Culture not ind Nasal Screen MRSA (PCR) Salicylates Urine Opiates Screen Neg Acetaminophen Ur Barbiturates Screen Neg Ur Amphetamines Screen Neg U Benzodiazepines Scrn Neg Urine Cocaine Screen Neg U Cannabinoids Screen Neg Serum Alcohol 10/30/17 10/30/17 10/30/17 22:28 22:28 22:28 WBC RBC Hgb Hct MCV MCH MCHC RDW Plt Count MPV Prelim Diff (Auto) Neut % (Auto) Lymph % (Auto) [place] % (Auto) Eos % (Auto) Baso % (Auto) Neut # (Auto) Lymph # (Auto) [place] # (Auto) Eos # (Auto) Baso # (Auto) WBC Differential Seg Neuts % (Manual) Band Neuts % (Manual) Lymphocytes % (Manual) Monocytes % (Manual) Basophils % (Manual) Metamyelocytes % (Man) Abs Neuts (Manual) Differential Comment Toxic Granulation Toxic Vacuolation Platelet Estimate Platelet Morphology Basophilic Stippling PT INR APTT Fibrinogen Puncture Site Patient Temperature O2 Saturation ABG pH ABG pCO2 ABG pO2 ABG HCO3 ABG O2 Content ABG Base Excess ABG Methemoglobin Jamar Test Hemoglobin Carboxyhemoglobin O2 Delivery Device Vent Setting Inspired O2 Critical Value Sodium Potassium Chloride Carbon Dioxide Anion Gap BUN Creatinine Estimated GFR POC Glucose Random Glucose Lactic Acid 11.1 H* Calcium Prot Corrected Calcium Phosphorus Magnesium Total Bilirubin AST ALT Alkaline Phosphatase Ammonia 44 H Total Creatine Kinase CK-MB (CK-2) CK-MB (CK-2) % Total Protein Albumin Lipase Beta-Hydroxybutyric Acd 0.13 TSH Free T4 Free T3 Urine Color Urine Clarity Urine pH Ur Specific [place] Urine Protein Urine Glucose (UA) Urine Ketones Urine Occult Blood Urine Nitrate Urine Bilirubin Urine Urobilinogen Ur Leukocyte Esterase Urine RBC Urine WBC Ur Squamous Epith Cells Urine Bacteria Hyaline Casts Urine Mucus Micro UA Comment Urine Culture Comments Nasal Screen MRSA (PCR) Salicylates Urine Opiates Screen Acetaminophen Ur Barbiturates Screen Ur Amphetamines Screen U Benzodiazepines Scrn Urine Cocaine Screen U Cannabinoids Screen Serum Alcohol 10/30/17 10/31/17 10/31/17 23:12 02:26 04:18 WBC RBC Hgb Hct MCV MCH MCHC RDW Plt Count MPV Prelim Diff (Auto) Neut % (Auto) Lymph % (Auto) [place] % (Auto) Eos % (Auto) Baso % (Auto) Neut # (Auto) Lymph # (Auto) [place] # (Auto) Eos # (Auto) Baso # (Auto) WBC Differential Seg Neuts % (Manual) Band Neuts % (Manual) Lymphocytes % (Manual) Monocytes % (Manual) Basophils % (Manual) Metamyelocytes % (Man) Abs Neuts (Manual) Differential Comment Toxic Granulation Toxic Vacuolation Platelet Estimate Platelet Morphology Basophilic Stippling PT INR APTT Fibrinogen Puncture Site Right radial Patient Temperature 98.6 O2 Saturation 93 ABG pH 7.32 L ABG pCO2 37 L ABG pO2 83 ABG HCO3 19 L ABG O2 Content 16.2 ABG Base Excess -6.4 L ABG Methemoglobin 1.3 Jamar Test Present Hemoglobin 12.3 Carboxyhemoglobin 0.8 O2 Delivery Device Vent Vent Setting See comments Inspired O2 100 Critical Value No Sodium Potassium Chloride Carbon Dioxide Anion Gap BUN Creatinine Estimated GFR POC Glucose Random Glucose Lactic Acid 9.0 H* Calcium Prot Corrected Calcium Phosphorus Magnesium Total Bilirubin AST ALT Alkaline Phosphatase Ammonia Total Creatine Kinase CK-MB (CK-2) CK-MB (CK-2) % Total Protein Albumin Lipase Beta-Hydroxybutyric Acd TSH Free T4 Free T3 Urine Color Urine Clarity Urine pH Ur Specific [place] Urine Protein Urine Glucose (UA) Urine Ketones Urine Occult Blood Urine Nitrate Urine Bilirubin Urine Urobilinogen Ur Leukocyte Esterase Urine RBC Urine WBC Ur Squamous Epith Cells Urine Bacteria Hyaline Casts Urine Mucus Micro UA Comment Urine Culture Comments Nasal Screen MRSA (PCR) [place] detected Salicylates Urine Opiates Screen Acetaminophen Ur Barbiturates Screen Ur Amphetamines Screen U Benzodiazepines Scrn Urine Cocaine Screen U Cannabinoids Screen Serum Alcohol 10/31/17 10/31/17 10/31/17 04:18 04:18 04:18 WBC 23.8 H RBC 3.70 L Hgb 12.8 L Hct 38.7 L MCV 104.6 H MCH 34.6 H MCHC 33.1 RDW 14.7 Plt Count 70 L MPV 9.8 Prelim Diff (Auto) Slide review pending Neut % (Auto) 95.5 H Lymph % (Auto) 1.0 L [place] % (Auto) 2.9 Eos % (Auto) 0.0 Baso % (Auto) 0.6 Neut # (Auto) 22.8 H Lymph # (Auto) 0.2 L [place] # (Auto) 0.7 Eos # (Auto) 0.0 Baso # (Auto) 0.1 WBC Differential Manual diff final Seg Neuts % (Manual) 59 Band Neuts % (Manual) 35 H Lymphocytes % (Manual) 1 L Monocytes % (Manual) 1 Basophils % (Manual) Metamyelocytes % (Man) 4 H Abs Neuts (Manual) 23.3 H Differential Comment . Toxic Granulation 1+ H Toxic Vacuolation Present H Platelet Estimate Low L Platelet Morphology Enlarged H Basophilic Stippling PT 20.8 H INR 2.1 APTT 53.0 H D Fibrinogen 206 L Puncture Site Patient Temperature O2 Saturation ABG pH ABG pCO2 ABG pO2 ABG HCO3 ABG O2 Content ABG Base Excess ABG Methemoglobin Jamar Test Hemoglobin Carboxyhemoglobin O2 Delivery Device Vent Setting Inspired O2 Critical Value Sodium 138 Potassium 5.4 H D Chloride 101 Carbon Dioxide 23.2 Anion Gap 14 BUN 9 Creatinine 1.95 H Estimated GFR 36 L POC Glucose Random Glucose 139 H D Lactic Acid Calcium 7.1 L* Prot Corrected Calcium 7.1 L* Phosphorus 3.4 D Magnesium 1.2 L Total Bilirubin 6.5 H AST 173 H ALT 36 Alkaline Phosphatase 184 H Ammonia Total Creatine Kinase CK-MB (CK-2) CK-MB (CK-2) % Total Protein 7.3 Albumin 2.5 L Lipase Beta-Hydroxybutyric Acd TSH Free T4 1.28 Free T3 1.57 L Urine Color Urine Clarity Urine pH Ur Specific [place] Urine Protein Urine Glucose (UA) Urine Ketones Urine Occult Blood Urine Nitrate Urine Bilirubin Urine Urobilinogen Ur Leukocyte Esterase Urine RBC Urine WBC Ur Squamous Epith Cells Urine Bacteria Hyaline Casts Urine Mucus Micro UA Comment Urine Culture Comments Nasal Screen MRSA (PCR) Salicylates Urine Opiates Screen Acetaminophen Ur Barbiturates Screen Ur Amphetamines Screen U Benzodiazepines Scrn Urine Cocaine Screen U Cannabinoids Screen Serum Alcohol 10/31/17 10/31/17 10/31/17 12:04 12:04 12:04 WBC RBC Hgb Hct MCV MCH MCHC RDW Plt Count MPV Prelim Diff (Auto) Neut % (Auto) Lymph % (Auto) [place] % (Auto) Eos % (Auto) Baso % (Auto) Neut # (Auto) Lymph # (Auto) [place] # (Auto) Eos # (Auto) Baso # (Auto) WBC Differential Seg Neuts % (Manual) Band Neuts % (Manual) Lymphocytes % (Manual) Monocytes % (Manual) Basophils % (Manual) Metamyelocytes % (Man) Abs Neuts (Manual) Differential Comment Toxic Granulation Toxic Vacuolation Platelet Estimate Platelet Morphology Basophilic Stippling PT INR APTT Fibrinogen Puncture Site Patient Temperature O2 Saturation ABG pH ABG pCO2 ABG pO2 ABG HCO3 ABG O2 Content ABG Base Excess ABG Methemoglobin Jamar Test Hemoglobin Carboxyhemoglobin O2 Delivery Device Vent Setting Inspired O2 Critical Value Sodium Potassium 5.2 H Chloride Carbon Dioxide Anion Gap BUN Creatinine Estimated GFR POC Glucose 148 H Random Glucose Lactic Acid Calcium Prot Corrected Calcium Phosphorus Magnesium Total Bilirubin AST ALT Alkaline Phosphatase Ammonia Total Creatine Kinase 586 H CK-MB (CK-2) 2.1 CK-MB (CK-2) % 0.4 Total Protein Albumin Lipase Beta-Hydroxybutyric Acd TSH Free T4 Free T3 Urine Color Urine Clarity Urine pH Ur Specific [place] Urine Protein Urine Glucose (UA) Urine Ketones Urine Occult Blood Urine Nitrate Urine Bilirubin Urine Urobilinogen Ur Leukocyte Esterase Urine RBC Urine WBC Ur Squamous Epith Cells Urine Bacteria Hyaline Casts Urine Mucus Micro UA Comment Urine Culture Comments Nasal Screen MRSA (PCR) Salicylates Urine Opiates Screen Acetaminophen Ur Barbiturates Screen Ur Amphetamines Screen U Benzodiazepines Scrn Urine Cocaine Screen U Cannabinoids Screen Serum Alcohol 10/31/17 13:15 WBC RBC Hgb Hct MCV MCH MCHC RDW Plt Count MPV Prelim Diff (Auto) Neut % (Auto) Lymph % (Auto) [place] % (Auto) Eos % (Auto) Baso % (Auto) Neut # (Auto) Lymph # (Auto) [place] # (Auto) Eos # (Auto) Baso # (Auto) WBC Differential Seg Neuts % (Manual) Band Neuts % (Manual) Lymphocytes % (Manual) Monocytes % (Manual) Basophils % (Manual) Metamyelocytes % (Man) Abs Neuts (Manual) Differential Comment Toxic Granulation Toxic Vacuolation Platelet Estimate Platelet Morphology Basophilic Stippling PT INR APTT Fibrinogen Puncture Site Patient Temperature O2 Saturation ABG pH ABG pCO2 ABG pO2 ABG HCO3 ABG O2 Content ABG Base Excess ABG Methemoglobin Jamar Test Hemoglobin Carboxyhemoglobin O2 Delivery Device Vent Setting Inspired O2 Critical Value Sodium Potassium Chloride Carbon Dioxide Anion Gap BUN Creatinine Estimated GFR POC Glucose Random Glucose Lactic Acid 5.3 H* Calcium Prot Corrected Calcium Phosphorus Magnesium Total Bilirubin AST ALT Alkaline Phosphatase Ammonia Total Creatine Kinase CK-MB (CK-2) CK-MB (CK-2) % Total Protein Albumin Lipase Beta-Hydroxybutyric Acd TSH Free T4 Free T3 Urine Color Urine Clarity Urine pH Ur Specific [place] Urine Protein Urine Glucose (UA) Urine Ketones Urine Occult Blood Urine Nitrate Urine Bilirubin Urine Urobilinogen Ur Leukocyte Esterase Urine RBC Urine WBC Ur Squamous Epith Cells Urine Bacteria Hyaline Casts Urine Mucus Micro UA Comment Urine Culture Comments Nasal Screen MRSA (PCR) Salicylates Urine Opiates Screen Acetaminophen Ur Barbiturates Screen Ur Amphetamines Screen U Benzodiazepines Scrn Urine Cocaine Screen U Cannabinoids Screen Serum Alcohol Microbiology 10/30/17 17:50 Blood - Peripheral Aerobic Blood Culture - Preliminary Group A beta (Strep pyogenes) 10/30/17 17:50 Blood - Peripheral Anaerobic Blood Culture - Preliminary gram positive cocci 10/30/17 17:50 Blood - Peripheral Aerobic Blood Culture - Preliminary gram positive cocci 10/30/17 17:50 Blood - Peripheral Anaerobic Blood Culture - Preliminary gram positive cocci 10/31/17 01:10 Urine - Catheterized Urine Streptococcus pneumoniae Antigen ( M - Final Presumptive negative for streptococcus pneumoniae antigen, suggesting no current or recent infection. Infection due to Streptococcus pneumoniae cannot be ruled out since the antigen present in the sample may be below the detection limit of the test. 10/31/17 01:10 Urine - Catheterized Urine Legionella Antigen - Final Presumptive negative for Legionella pneumophila serogroup 1 antigen in urine, suggesting no recent or recurrent infection. Infection due to Legionella cannot be ruled out since other serogroups and species may cause disease, antigen may not be present in urine in early infection, and the level of antigen present in the urine may be below the detection limit of the test. 10/31/17 04:55 Sputum - Endotracheal Gram Stain - Final 10/31/17 02:30 Nasal Wash Influenza Types A,B Antigen - Final Negative for FLU A and B antigen Infection due to influenza A or B cannot be ruled out since the antigen present in the sample may be below the detection limit of the test. - Imaging Impressions Abdomen/Pelvis CT 10/30/17 17:35 CONCLUSION: 1. Mild colitis predominantly on the right side with trace free fluid and some inflammatory changes on the right. No bowel obstruction. No free air. 2. Multiple layering gallstones. 3. Subsegmental basilar airspace consolidation in the lungs. Differential diagnosis includes mild pneumonia. 4. Fatty liver enlarged to 25 cm. Chest X-Ray 10/30/17 17:35 CONCLUSION: Subsegmental basilar airspace disease, right greater than left. Differential diagnosis includes pneumonia and atelectasis, in patient with fever. Head CT 10/30/17 17:35 CONCLUSION: 1. No acute intracranial abnormalities. . Chest CTA 10/30/17 19:02 CONCLUSION: 1. Suboptimal bolus but no evidence for central pulmonary emboli. 2. Patchy airspace consolidation right lung base most characteristic of pneumonia. No significant effusion. Foot X-Ray 10/30/17 21:27 CONCLUSION: No acute findings. Mild degenerative change in the right foot. Prominent calcaneal bone spurs. Foot X-Ray 10/30/17 21:27 CONCLUSION: No acute findings. Moderate degenerative change. Bone spurs posterior calcaneus. Lumbar Spine CT 10/30/17 21:43 CONCLUSION: 1. No acute fracture. 2. 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 3. At L5-S1 there is a small central disc protrusion. Mild bilateral foraminal encroachment. Thoracic Spine CT 10/30/17 21:43 CONCLUSION: 1. Negative for acute traumatic injury to the thoracic spine. Small Schmorl's nodes in the lower thoracic spine. Chest X-Ray 10/31/17 01:38 CONCLUSION: 1. Interval intubation and placement of right internal jugular central venous line with no pneumothorax. 2. Placement of nasogastric tube. 3. Mid inspiratory study with crowding of the lung vasculature.
[2017-10-31] MEDS ORDERED: Gadobutrol PF 7.5 MMOL/7.5 ML Vial (for RAD) IV.SIG ONE (15:32)
--- NOTE | 2017-10-31 16:07 | MR ---
EXAM DATE: 10/31/2017 3:35 PM EDT AGE/SEX: 52 years / Male INDICATIONS: Osteomyelitis. Planter side of great toe of left foot. CLINICAL DATA: This is the patient's initial encounter. Patient reports that signs and symptoms have been present for 2 days and indicates a pain score of Nonresponsive. MEDICAL/SURGICAL HISTORY: Non-responsive. Non-responsive. COMPARISON: No prior exams available for comparison. TECHNIQUE: Multiplanar, multisequence MRI examination was performed without contrast and after th e intravenous administration of 13 ml Gadavist (gadobutrol) single exam dose. FINDINGS: There is soft tissue edema over the dorsum of the foot but no abscess is identified. No focal areas o f marrow placement are identified. 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 The tendons appear normal. CONCLUSION: 1. Electronically signed by: Henrik Mcallister MD 10/31/2017 4:06 PM EDT
--- NOTE | 2017-10-31 16:21 | MR ---
EXAM DATE: 10/31/2017 3:59 PM EDT AGE/SEX: 52 years / Male INDICATIONS: Abscess. CLINICAL DATA: This is the patient's initial encounter. Patient reports that signs and symptoms have been present for 2 days and indicates a pain score of Nonresponsive. MEDICAL/SURGICAL HISTORY: Non-responsive. Non-responsive. COMPARISON: No prior exams available for comparison. TECHNIQUE: Multiplanar, multisequence MRI examination of the lumbar spine was performed without and with 13 ml Gadavist (gadobutrol) contrast as a single exam dose. FINDINGS: MRI of the lumbar spine was performed in sagittal and axial planes. There is anterolisthesis likely r elated to facet arthritis at L4-L5 of 2 to 3 mm. Following the administration of contrast no abnormal enhancement is identified. No focal areas of marrow replacement are identified. The conus terminates normally. Axial images were performed from T12-L1 through L5-S1. T12-L1: No significant abnormalities identified. L1-L2: No significant abnormalities identified. L2-L3: No significant abnormalities identified. L3-L4: There is no evidence of disc protrusion or spinal canal stenosis. There is mild facet arthrit is bilaterally. L4-L5: There is broad-based annular bulge of disc. There is focal protrusion to the right compromisi ng the nerve root exit zone with severe right-sided and moderate left-sided foraminal narrowing. Ther e is a extruded fragment lying posterior to the L4 vertebral body measuring rrThere 2 cm x 1 cm. Ther e is no significant spinal canal stenosis. L5-S1: No significant abnormalities identified. CONCLUSION: Extruded disc fragment with a donor site at L4-L5 lying posterior to the L4 vertebral body severe rig ht-sided and moderate left-sided foraminal narrowing. There is no evidence of abscess. Electronically signed by: Henrik Mcallister MD 10/31/2017 4:20 PM EDT
--- NOTE | 2017-10-31 16:23 | MR ---
EXAM DATE: 10/31/2017 3:42 PM EDT AGE/SEX: 52 years / Male INDICATIONS: Abscess. CLINICAL DATA: This is the patient's initial encounter. Patient reports that signs and symptoms have been present for 1 day and indicates a pain score of Nonresponsive. MEDICAL/SURGICAL HISTORY: Non-responsive. Non-responsive. COMPARISON: . TECHNIQUE: Multiplanar multisequence MRI examination of the sacrum/coccyx was performed without and with 13 ml Gadavist (gadobutrol) contrast as a single exam dose. FINDINGS: No focal areas of marrow placement are identified. There is no evidence of abscess. This protrusion and extruded fragment L4-L5 is again identified. Following the administration of contrast no abnormal enhancement is identified. The sacroiliac joints are intact. Visualized soft tissue structures are i ntact. CONCLUSION: 1. Negative MRI of the sacrum Electronically signed by: Henrik Mcallister MD 10/31/2017 4:22 PM EDT
--- NOTE | 2017-10-31 17:11 | P.CONID ---
History of Present Illness Service: ID Consult date: 10/31/17 Requesting Physician: Dusty Oh Reason for Consult: bactermia Primary Care Provider: UNKNOWN Chief Complaint: Fever, back pain History of Present Illness: pt sedated int'd on vent unable to provide history 52 yo male presented after found down. He was bnge drinking HIgh fever and leukocytosis with WBC of 23 K on presentation Multiple radilogical studies showed L4-5 disk protrusion, colitis and pulm infiltrates On 70 % FiO2 8 mcgs of Levaphed His blood clx came back positive for group A strep / today Hwe is on zosyn and vancomycin Lactic acid on presentation 11.4, now down to 5 PMFSH - History History Provided By: Patient - Medical History Medical History: Medical History (Last Updated 10/31/17 @ 08:46 by Terra Abdullahi MD) EtOH dependence - Surgical History Surgical History: Surgical History (Last Updated 10/31/17 @ 08:47 by Terra Abdullahi MD) No pertinent past surgical history - Family History Family History: Family History (Last Updated 10/31/17 @ 08:48 by Terra Abdullahi MD) Uncle EtOH dependence Mother Breast cancer Father Prostate cancer Leukemia - Tobacco History Tobacco Use In Past 30 Days: Yes Smoking Status: Current every day smoker Tobacco Type: Smokeless Tobacco - Alcohol History How Often Do You Have a Drink Containing Alcohol: 4 or more times a week - Substance Use History Substance History: Unable to Obtain - Travel History Recent Travel in the [place] Within the Last 8 Weeks: No Recent Travel Out of the Country Within the Last 8 Weeks: No - Immunization History Tetanus Immunization: Unsure Hx Influenza Vaccine This Season: No Medications and Allergies Active Medications: Active Medications Acetaminophen (Tylenol Liq) 650 mg PO Q8H PRN PRN Reason: FEVER Last Admin: 10/31/17 16:38 Dose: 650 mg Al Hydroxide/Mg Hydroxide (Milk Of Magnesia Liq) 30 ml PO Q12H PRN PRN Reason: Mild Constipation Albuterol (Duoneb Neb ([place])) 1 ampul NEB Q4HR NEB [place] Last Admin: 10/31/17 16:21 Dose: 1 ampul Albuterol (Albuterol Neb (Prn)) 2.5 mg NEB Q2HR NEB PRN PRN Reason: DYSPNEA Artificial Tears (Genteal Severe Dry Eye Relief 0.3% Opth Gel) 1 drops EACH EYE BID [place] Bisacodyl (Dulcolax Supp) 10 mg RECTAL DAILY PRN PRN Reason: SEVERE CONSITIPATION Chlorhexidine Gluconate (Chlorhexidine 2% Cloth) 3 pack TOPICAL DAILY@0400 [facility] Stop: 11/05/17 03:59 Last Admin: 10/31/17 05:10 Dose: 3 pack Chlorhexidine Gluconate (Chlorhexidine 2% Cloth) 3 pack TOPICAL DAILY@0400 PRN PRN Reason: Extra cloth needed Stop: 11/05/17 03:59 Chlorhexidine Gluconate (Peridex 0.12% Oral Kit) 15 ml OROPHARYNG BID@0800, 2000 [facility] Last Admin: 10/31/17 08:02 Dose: 15 ml Dextrose (D50w Vial) 50 ml IV.PUSH UNSCH PRN PRN Reason: PER HYPOGLYCEMIA PROTOCOL Glucagon (Glucagon Inj) 1 mg OTHER PRN PRN PRN Reason: for Hypoglycemia Protocol Sodium Chloride (Ns Inj) 1,000 mls @ 0 mls/hr IV.SIG .Q0M [facility] Last Infusion: 10/30/17 19:36 Dose: Infused Sodium Chloride (Ns Inj) 1,000 mls @ 0 mls/hr IV.SIG .Q0M [facility] Last Infusion: 10/30/17 21:32 Dose: Infused Lactated Ringer's (Lr 1000 Ml Inj) 1,000 mls @ 150 mls/hr IV.CONT .Q6H40M [facility] Last Admin: 10/31/17 16:27 Dose: 125 mls/hr Pharmacy Profile Note (Vancomycin Consult Pharmacy) 0 mls @ 0 mls/hr OTHER UNSCH [facility] Piperacillin/Tazobactam/Dextrose (Zosyn 3.375 Gm Premix) 50 mls @ 100 mls/hr IV.SIG Q6H [facility] Last Admin: 10/31/17 16:37 Dose: 100 mls/hr Multivitamins 10 ml/ Thiamine HCl 100 mg/ Folic Acid 1 mg/Sodium Chloride 511.2 mls @ 127.8 mls/hr IV.SIG Q24H [facility] Stop: 11/03/17 22:59 Vancomycin HCl 1,700 mg/ (Sodium Chloride) 517 mls @ 250 mls/hr IV.SIG Q12H [facility] Last Admin: 10/31/17 06:17 Dose: 250 mls/hr Magnesium Sulfate Inj 4 gm/ (Sodium Chloride) 100 mls @ 50 mls/hr IV.SIG UNSCH PRN PRN Reason: For Magnesium 0.9 - 1.1 mg/dL Magnesium Sulfate Inj 2 gm/ (Sodium Chloride) 100 mls @ 50 mls/hr IV.SIG UNSCH PRN PRN Reason: For Magnesium 1.2 - 1.6 mg/dL Potassium Chloride (Kcl 40 Meq Premix Inj) 40 meq in 100 mls @ 25 mls/hr IV.SIG Q2H PRN PRN Reason: For Potassium 2.8 - 3.2 mEq/L Potassium Chloride (Kcl 40 Meq Premix Inj) 40 meq in 100 mls @ 25 mls/hr IV.SIG UNSCH PRN PRN Reason: For Potassium 3.3 - 3.5 mEq/L Potassium Chloride (Kcl 20 Meq Premix Inj) 20 meq in 100 mls @ 50 mls/hr IV.SIG Q2H PRN PRN Reason: For Potassium 2.8 - 3.2 mEq/L Potassium Phosphate 30 mmol/ (Sodium Chloride) 260 mls @ 42 mls/hr IV.SIG UNSCH PRN PRN Reason: SEE LABEL COMMENTS Potassium Chloride (Kcl 20 Meq Premix Inj) 20 meq in 100 mls @ 50 mls/hr IV.SIG Q2H PRN PRN Reason: For Potassium 3.3 - 3.5 mEq/L Sodium Phosphate 30 mmol/ (Sodium Chloride) 260 mls @ 42 mls/hr IV.SIG UNSCH PRN PRN Reason: For Phosphorus < 2.5 mg/dL Propofol (Diprivan 1000 Mg/100 Ml Inj) 1,000 mg in 100 mls @ 3.81 mls/hr IV.CONT TITRATE PRN; Protocol PRN Reason: Per Protocol Last Admin: 10/31/17 12:02 Dose: 25 mcg/kg/min, 19.05 mls/hr Norepinephrine Bitartrate 4 mg (/ Sodium Chloride) 250 mls @ 7.5 mls/hr IV.SIG TITRATE PRN; Protocol PRN Reason: Per Protocol Last Admin: 10/31/17 12:19 Dose: 7 mcg/min, 26.25 mls/hr Fentanyl (Fentanyl 10 Mcg/Ml Premix Drip) 2,500 mcg in 250 mls @ 5 mls/hr IV.SIG TITRATE PRN; Protocol PRN Reason: Per Protocol Insulin Aspart (Novolog Insulin Correctional Sugar Inj) 0 unit SQ Q6HR [place]; Protocol Lactulose (Lactulose Liq) 30 ml PO DAILY PRN PRN Reason: SEVERE CONSITIPATION Lactulose (Lactulose Liq) 30 ml PO BID [facility] Lansoprazole (Prevacid Solutab) 30 mg NG/OG DAILY [place] Lorazepam (Ativan) 1 mg PO Q4H PRN PRN Reason: for CIWA 8-10 Lorazepam (Ativan) 2 mg PO Q2H PRN PRN Reason: for CIWA 11-14 Magnesium Oxide (Mag-Ox) 800 mg PO UNSCH PRN PRN Reason: For Magnesium 1.2 - 1.6 mg/dL Miscellaneous Information ([facility] Ordered Lab Info) 0 each OTHER ONCE ONE Stop: 11/01/17 05:46 Potassium Bicarb/Potassium Chloride (K-Lyte Cl Eff) 50 meq PO UNSCH PRN PRN Reason: For Potassium 3.3 - 3.5 mEq/L Potassium Phosphate (K-Phos Original) 2,000 mg PO Q4H PRN PRN Reason: Phosphorus Less Than 2.5 mg/dL Potassium Phosphate (K-Phos Original) 2,000 mg PO UNSCH PRN PRN Reason: SEE LABEL COMMENTS Senna/Docusate Sodium (Leatha-Colace) 1 tab PO BID [facility] Last Admin: 10/31/17 08:02 Dose: 1 tab Sennosides (Senokot) 17.2 mg PO Q12H PRN PRN Reason: Moderate Constipation Sodium Chloride (Ns Flush) 2 ml IV.FLUSH BID [facility] Last Admin: 10/31/17 08:02 Dose: 2 ml Sodium Chloride (Ns Flush) 2 ml IV.FLUSH PRN PRN PRN Reason: FLUSH AFTER USING IV ACCESS Terbutaline Sulfate (Brethine Inj) 1 mg SQ UNSCH PRN PRN Reason: For Extravasation Allergies Allergy/AdvReac Type Severity Reaction Status Date / Time No Known Allergies Allergy Unverified 10/30/17 17:35 Home Medications Medication Instructions Recorded Confirmed Type No Known Home Medications 10/30/17 10/30/17 History Exam Vital signs: Vital Signs 10/30/17 17:14 10/30/17 17:28 10/30/17 18:21 Temperature 103 F H 101.2 F H Pulse Rate 131 H 136 H 130 H Respiratory Rate 20 22 22 Blood Pressure 129/58 L 122/78 Pulse Oximetry 95 95 96 10/30/17 18:48 10/30/17 22:24 10/30/17 23:00 Temperature 102.7 F H Pulse Rate 120 H 135 H Respiratory Rate 22 40 H Blood Pressure 182/84 H 145/75 H Pulse Oximetry 94 L 89 L 10/30/17 23:56 10/31/17 00:00 10/31/17 04:00 Temperature 103.1 F H 100 F H Pulse Rate 130 H 111 H Respiratory Rate 33 H 14 Blood Pressure 120/69 81/54 L Pulse Oximetry 89 L 95 95 10/31/17 06:00 10/31/17 07:40 10/31/17 08:00 Temperature Pulse Rate 109 H Respiratory Rate 26 H Blood Pressure Pulse Oximetry 100 104 H 10/31/17 08:45 10/31/17 10:00 10/31/17 11:22 Temperature Pulse Rate 106 H 104 H 104 H Respiratory Rate 26 H Blood Pressure Pulse Oximetry 10/31/17 11:25 10/31/17 13:15 10/31/17 16:21 Temperature Pulse Rate 115 H Respiratory Rate 23 25 H Blood Pressure Pulse Oximetry 100 10/31/17 16:23 Temperature Pulse Rate Respiratory Rate 29 H Blood Pressure Pulse Oximetry Intake & Output 10/30/17 10/31/17 10/31/17 18:59 06:59 18:59 Intake Total 5638 / 5638 2500 / 2500 Output Total 600 / 600 Balance 5038 / 5038 2500 / 2500 Weight 127.006 kg 128.5 kg Intake: IV 3400 / 3400 2500 / 2500 LR 1000 mL Inj 1,000 ML @ 150 2000 / 2000 mls/hr IV.CONT .Q6H40M [place] Rx#: [id number] Diprivan 1000 mg/100 ml Inj 1, 100 / 100 100 / 100 000 mg In 100 ml @ 5 MCG/KG/MIN 3.81 mls/hr IV.CONT TITRATE PRN Rx#:[id number] Ofirmev Inj 1,000 mg In 100 ml 100 / 100 @ 400 mls/hr IV.SIG ONCE ONE Rx #:[id number] Magnesium Sulfate 1 gm/D5W 100 100 / 100 100 / 100 ml Premix 100 ML @ 100 mls/hr IV.SIG Q1H [place] Rx#:[id number] Levophed Inj 4 MG In NS Inj 246 250 / 250 ML @ 2 MCG/MIN 7.5 mls/hr IV. SIG TITRATE PRN Rx#:[id number] Zosyn 3.375 GM Premix 50 ML @ 100 / 100 50 / 50 100 mls/hr IV.SIG Q6H [place] Rx#: [id number] NS Inj 1,000 ML @ Wide Open IV. 3000 / 3000 SIG .Q0M [place] Rx#:[id number] Other 2238 / 2238 Output: Urine 300 / 300 Gastric Drainage 300 / 300 Orogastric Tube 300 / 300 - Constitutional obese Comments: sedated intubated on vent - Routine HEENT Exam Head: Present: normocephalic, atraumatic Eye: Present: EOMI, conjunctival icterus ENT: Present: mucous membranes moist, oropharynx clear Comments: chemoses - Routine Neck Exam Present: supple, full ROM - Routine Respiratory Exam Present: patient mechanically ventilated, decreased breath sounds, CTA bilaterally - Routine Cardiovascular Exam Present: RRR, S1, S2 Comments: no murmurs rubs and gallops - Routine Abdominal Exam Present: soft, tenderness (grimacing to palpation; no organomegaly or masses), distended - Routine Exam Comments: anderson in place with small amount of quite dark urine - Routine Extremities Exam Present: cyanosis, edema, pulses intact Comments: refill delayed - Routine Skin Exam Present: intact, warm (cold toes) - Routine Neurological Exam sedated, responsd to tactile stimuylation with grimacing, but not opneing eyes - Routine Psychiatric Exam Present: unable to assess Results - Labs CBC & Chem 7: 10/31/17 04:18 10/31/17 12:04 Labs: Laboratory Results - last 24 hr 10/30/17 10/30/17 10/30/17 17:39 17:39 17:39 WBC 23.5 H RBC 3.74 L Hgb 13.1 Hct 39.2 MCV 104.6 H MCH 35.1 H MCHC 33.5 RDW 13.9 Plt Count 76 L MPV 9.0 Prelim Diff (Auto) Slide review pending Neut % (Auto) 93.9 H Lymph % (Auto) 2.2 L Saline % (Auto) 3.7 Eos % (Auto) 0.0 Baso % (Auto) 0.2 Neut # (Auto) 22.0 H Lymph # (Auto) 0.5 L Saline # (Auto) 0.9 Eos # (Auto) 0.0 Baso # (Auto) 0.0 WBC Differential Manual diff final Seg Neuts % (Manual) 67 Band Neuts % (Manual) 26 H Lymphocytes % (Manual) Monocytes % (Manual) 5 Basophils % (Manual) 1 Metamyelocytes % (Man) 1 Abs Neuts (Manual) 22.1 H Differential Comment . Toxic Granulation Toxic Vacuolation Present H Platelet Estimate Low L Platelet Morphology Normal Basophilic Stippling Faint H PT 19.4 H INR 1.9 APTT 43.2 H Fibrinogen Puncture Site Patient Temperature O2 Saturation ABG pH ABG pCO2 ABG pO2 ABG HCO3 ABG O2 Content ABG Base Excess ABG Methemoglobin Jamar Test Hemoglobin Carboxyhemoglobin O2 Delivery Device Vent Setting Inspired O2 Critical Value Sodium 135 L Potassium 4.4 Chloride 98 Carbon Dioxide 19.5 L Anion Gap 18 H BUN 7 Creatinine 1.33 H Estimated GFR 56 L POC Glucose Random Glucose 260 H Lactic Acid Calcium 7.8 L Prot Corrected Calcium Phosphorus Magnesium 1.1 L Total Bilirubin 5.4 H AST 174 H ALT 39 Alkaline Phosphatase 269 H Ammonia Total Creatine Kinase CK-MB (CK-2) CK-MB (CK-2) % Total Protein 7.8 Albumin 2.6 L Lipase 59 L Beta-Hydroxybutyric Acd TSH Free T4 Free T3 Urine Color Urine Clarity Urine pH Ur Specific [place] Urine Protein Urine Glucose (UA) Urine Ketones Urine Occult Blood Urine Nitrate Urine Bilirubin Urine Urobilinogen Ur Leukocyte Esterase Urine RBC Urine WBC Ur Squamous Epith Cells Urine Bacteria Hyaline Casts Urine Mucus Micro UA Comment Urine Culture Comments Nasal Screen MRSA (PCR) Salicylates Urine Opiates Screen Acetaminophen Ur Barbiturates Screen Ur Amphetamines Screen U Benzodiazepines Scrn Urine Cocaine Screen U Cannabinoids Screen Serum Alcohol 10/30/17 10/30/17 10/30/17 17:39 17:39 17:39 WBC RBC Hgb Hct MCV MCH MCHC RDW Plt Count MPV Prelim Diff (Auto) Neut % (Auto) Lymph % (Auto) Saline % (Auto) Eos % (Auto) Baso % (Auto) Neut # (Auto) Lymph # (Auto) Saline # (Auto) Eos # (Auto) Baso # (Auto) WBC Differential Seg Neuts % (Manual) Band Neuts % (Manual) Lymphocytes % (Manual) Monocytes % (Manual) Basophils % (Manual) Metamyelocytes % (Man) Abs Neuts (Manual) Differential Comment Toxic Granulation Toxic Vacuolation Platelet Estimate Platelet Morphology Basophilic Stippling PT INR APTT Fibrinogen Puncture Site Patient Temperature O2 Saturation ABG pH ABG pCO2 ABG pO2 ABG HCO3 ABG O2 Content ABG Base Excess ABG Methemoglobin Jamar Test Hemoglobin Carboxyhemoglobin O2 Delivery Device Vent Setting Inspired O2 Critical Value Sodium Potassium Chloride Carbon Dioxide Anion Gap BUN Creatinine Estimated GFR POC Glucose Random Glucose Lactic Acid Calcium Prot Corrected Calcium Phosphorus 1.2 L Magnesium Total Bilirubin AST ALT Alkaline Phosphatase Ammonia Total Creatine Kinase CK-MB (CK-2) CK-MB (CK-2) % Total Protein Albumin Lipase Beta-Hydroxybutyric Acd TSH 0.250 L Free T4 Free T3 Urine Color Urine Clarity Urine pH Ur Specific [place] Urine Protein Urine Glucose (UA) Urine Ketones Urine Occult Blood Urine Nitrate Urine Bilirubin Urine Urobilinogen Ur Leukocyte Esterase Urine RBC Urine WBC Ur Squamous Epith Cells Urine Bacteria Hyaline Casts Urine Mucus Micro UA Comment Urine Culture Comments Nasal Screen MRSA (PCR) Salicylates Less than 1.7 L Urine Opiates Screen Acetaminophen Less than 2.0 L Ur Barbiturates Screen Ur Amphetamines Screen U Benzodiazepines Scrn Urine Cocaine Screen U Cannabinoids Screen Serum Alcohol 147 H 10/30/17 10/30/17 10/30/17 17:45 17:45 19:29 WBC RBC Hgb Hct MCV MCH MCHC RDW Plt Count MPV Prelim Diff (Auto) Neut % (Auto) Lymph % (Auto) Saline % (Auto) Eos % (Auto) Baso % (Auto) Neut # (Auto) Lymph # (Auto) Saline # (Auto) Eos # (Auto) Baso # (Auto) WBC Differential Seg Neuts % (Manual) Band Neuts % (Manual) Lymphocytes % (Manual) Monocytes % (Manual) Basophils % (Manual) Metamyelocytes % (Man) Abs Neuts (Manual) Differential Comment Toxic Granulation Toxic Vacuolation Platelet Estimate Platelet Morphology Basophilic Stippling PT INR APTT Fibrinogen Puncture Site Patient Temperature O2 Saturation ABG pH ABG pCO2 ABG pO2 ABG HCO3 ABG O2 Content ABG Base Excess ABG Methemoglobin Jamar Test Hemoglobin Carboxyhemoglobin O2 Delivery Device Vent Setting Inspired O2 Critical Value Sodium Potassium Chloride Carbon Dioxide Anion Gap BUN Creatinine Estimated GFR POC Glucose Random Glucose Lactic Acid 11.4 H* Calcium Prot Corrected Calcium Phosphorus Magnesium Total Bilirubin AST ALT Alkaline Phosphatase Ammonia Total Creatine Kinase CK-MB (CK-2) CK-MB (CK-2) % Total Protein Albumin Lipase Beta-Hydroxybutyric Acd TSH Free T4 Free T3 Urine Color [place] Urine Clarity Hazy H Urine pH 5.0 Ur Specific [place] 1.017 Urine Protein Negative Urine Glucose (UA) 50 Urine Ketones Negative Urine Occult Blood Negative Urine Nitrate Negative Urine Bilirubin Negative Urine Urobilinogen 4 or greater Ur Leukocyte Esterase Negative Urine RBC 1 Urine WBC 3 Ur Squamous Epith Cells <1 Urine Bacteria Rare H Hyaline Casts 6 Urine Mucus Few H Micro UA Comment Culture not ind Urine Culture Comments Culture not ind Nasal Screen MRSA (PCR) Salicylates Urine Opiates Screen Neg Acetaminophen Ur Barbiturates Screen Neg Ur Amphetamines Screen Neg U Benzodiazepines Scrn Neg Urine Cocaine Screen Neg U Cannabinoids Screen Neg Serum Alcohol 10/30/17 10/30/17 10/30/17 22:28 22:28 22:28 WBC RBC Hgb Hct MCV MCH MCHC RDW Plt Count MPV Prelim Diff (Auto) Neut % (Auto) Lymph % (Auto) Saline % (Auto) Eos % (Auto) Baso % (Auto) Neut # (Auto) Lymph # (Auto) Saline # (Auto) Eos # (Auto) Baso # (Auto) WBC Differential Seg Neuts % (Manual) Band Neuts % (Manual) Lymphocytes % (Manual) Monocytes % (Manual) Basophils % (Manual) Metamyelocytes % (Man) Abs Neuts (Manual) Differential Comment Toxic Granulation Toxic Vacuolation Platelet Estimate Platelet Morphology Basophilic Stippling PT INR APTT Fibrinogen Puncture Site Patient Temperature O2 Saturation ABG pH ABG pCO2 ABG pO2 ABG HCO3 ABG O2 Content ABG Base Excess ABG Methemoglobin Jamar Test Hemoglobin Carboxyhemoglobin O2 Delivery Device Vent Setting Inspired O2 Critical Value Sodium Potassium Chloride Carbon Dioxide Anion Gap BUN Creatinine Estimated GFR POC Glucose Random Glucose Lactic Acid 11.1 H* Calcium Prot Corrected Calcium Phosphorus Magnesium Total Bilirubin AST ALT Alkaline Phosphatase Ammonia 44 H Total Creatine Kinase CK-MB (CK-2) CK-MB (CK-2) % Total Protein Albumin Lipase Beta-Hydroxybutyric Acd 0.13 TSH Free T4 Free T3 Urine Color Urine Clarity Urine pH Ur Specific [place] Urine Protein Urine Glucose (UA) Urine Ketones Urine Occult Blood Urine Nitrate Urine Bilirubin Urine Urobilinogen Ur Leukocyte Esterase Urine RBC Urine WBC Ur Squamous Epith Cells Urine Bacteria Hyaline Casts Urine Mucus Micro UA Comment Urine Culture Comments Nasal Screen MRSA (PCR) Salicylates Urine Opiates Screen Acetaminophen Ur Barbiturates Screen Ur Amphetamines Screen U Benzodiazepines Scrn Urine Cocaine Screen U Cannabinoids Screen Serum Alcohol 10/30/17 10/31/17 10/31/17 23:12 02:26 04:18 WBC RBC Hgb Hct MCV MCH MCHC RDW Plt Count MPV Prelim Diff (Auto) Neut % (Auto) Lymph % (Auto) Saline % (Auto) Eos % (Auto) Baso % (Auto) Neut # (Auto) Lymph # (Auto) Saline # (Auto) Eos # (Auto) Baso # (Auto) WBC Differential Seg Neuts % (Manual) Band Neuts % (Manual) Lymphocytes % (Manual) Monocytes % (Manual) Basophils % (Manual) Metamyelocytes % (Man) Abs Neuts (Manual) Differential Comment Toxic Granulation Toxic Vacuolation Platelet Estimate Platelet Morphology Basophilic Stippling PT INR APTT Fibrinogen Puncture Site Right radial Patient Temperature 98.6 O2 Saturation 93 ABG pH 7.32 L ABG pCO2 37 L ABG pO2 83 ABG HCO3 19 L ABG O2 Content 16.2 ABG Base Excess -6.4 L ABG Methemoglobin 1.3 Jamar Test Present Hemoglobin 12.3 Carboxyhemoglobin 0.8 O2 Delivery Device Vent Vent Setting See comments Inspired O2 100 Critical Value No Sodium Potassium Chloride Carbon Dioxide Anion Gap BUN Creatinine Estimated GFR POC Glucose Random Glucose Lactic Acid 9.0 H* Calcium Prot Corrected Calcium Phosphorus Magnesium Total Bilirubin AST ALT Alkaline Phosphatase Ammonia Total Creatine Kinase CK-MB (CK-2) CK-MB (CK-2) % Total Protein Albumin Lipase Beta-Hydroxybutyric Acd TSH Free T4 Free T3 Urine Color Urine Clarity Urine pH Ur Specific [place] Urine Protein Urine Glucose (UA) Urine Ketones Urine Occult Blood Urine Nitrate Urine Bilirubin Urine Urobilinogen Ur Leukocyte Esterase Urine RBC Urine WBC Ur Squamous Epith Cells Urine Bacteria Hyaline Casts Urine Mucus Micro UA Comment Urine Culture Comments Nasal Screen MRSA (PCR) Mrsa detected Salicylates Urine Opiates Screen Acetaminophen Ur Barbiturates Screen Ur Amphetamines Screen U Benzodiazepines Scrn Urine Cocaine Screen U Cannabinoids Screen Serum Alcohol 10/31/17 10/31/17 10/31/17 04:18 04:18 04:18 WBC 23.8 H RBC 3.70 L Hgb 12.8 L Hct 38.7 L MCV 104.6 H MCH 34.6 H MCHC 33.1 RDW 14.7 Plt Count 70 L MPV 9.8 Prelim Diff (Auto) Slide review pending Neut % (Auto) 95.5 H Lymph % (Auto) 1.0 L Saline % (Auto) 2.9 Eos % (Auto) 0.0 Baso % (Auto) 0.6 Neut # (Auto) 22.8 H Lymph # (Auto) 0.2 L Saline # (Auto) 0.7 Eos # (Auto) 0.0 Baso # (Auto) 0.1 WBC Differential Manual diff final Seg Neuts % (Manual) 59 Band Neuts % (Manual) 35 H Lymphocytes % (Manual) 1 L Monocytes % (Manual) 1 Basophils % (Manual) Metamyelocytes % (Man) 4 H Abs Neuts (Manual) 23.3 H Differential Comment . Toxic Granulation 1+ H Toxic Vacuolation Present H Platelet Estimate Low L Platelet Morphology Enlarged H Basophilic Stippling PT 20.8 H INR 2.1 APTT 53.0 H D Fibrinogen 206 L Puncture Site Patient Temperature O2 Saturation ABG pH ABG pCO2 ABG pO2 ABG HCO3 ABG O2 Content ABG Base Excess ABG Methemoglobin Jamar Test Hemoglobin Carboxyhemoglobin O2 Delivery Device Vent Setting Inspired O2 Critical Value Sodium 138 Potassium 5.4 H D Chloride 101 Carbon Dioxide 23.2 Anion Gap 14 BUN 9 Creatinine 1.95 H Estimated GFR 36 L POC Glucose Random Glucose 139 H D Lactic Acid Calcium 7.1 L* Prot Corrected Calcium 7.1 L* Phosphorus 3.4 D Magnesium 1.2 L Total Bilirubin 6.5 H AST 173 H ALT 36 Alkaline Phosphatase 184 H Ammonia Total Creatine Kinase CK-MB (CK-2) CK-MB (CK-2) % Total Protein 7.3 Albumin 2.5 L Lipase Beta-Hydroxybutyric Acd TSH Free T4 1.28 Free T3 1.57 L Urine Color Urine Clarity Urine pH Ur Specific [place] Urine Protein Urine Glucose (UA) Urine Ketones Urine Occult Blood Urine Nitrate Urine Bilirubin Urine Urobilinogen Ur Leukocyte Esterase Urine RBC Urine WBC Ur Squamous Epith Cells Urine Bacteria Hyaline Casts Urine Mucus Micro UA Comment Urine Culture Comments Nasal Screen MRSA (PCR) Salicylates Urine Opiates Screen Acetaminophen Ur Barbiturates Screen Ur Amphetamines Screen U Benzodiazepines Scrn Urine Cocaine Screen U Cannabinoids Screen Serum Alcohol 10/31/17 10/31/17 10/31/17 12:04 12:04 12:04 WBC RBC Hgb Hct MCV MCH MCHC RDW Plt Count MPV Prelim Diff (Auto) Neut % (Auto) Lymph % (Auto) Saline % (Auto) Eos % (Auto) Baso % (Auto) Neut # (Auto) Lymph # (Auto) Saline # (Auto) Eos # (Auto) Baso # (Auto) WBC Differential Seg Neuts % (Manual) Band Neuts % (Manual) Lymphocytes % (Manual) Monocytes % (Manual) Basophils % (Manual) Metamyelocytes % (Man) Abs Neuts (Manual) Differential Comment Toxic Granulation Toxic Vacuolation Platelet Estimate Platelet Morphology Basophilic Stippling PT INR APTT Fibrinogen Puncture Site Patient Temperature O2 Saturation ABG pH ABG pCO2 ABG pO2 ABG HCO3 ABG O2 Content ABG Base Excess ABG Methemoglobin Jamar Test Hemoglobin Carboxyhemoglobin O2 Delivery Device Vent Setting Inspired O2 Critical Value Sodium Potassium 5.2 H Chloride Carbon Dioxide Anion Gap BUN Creatinine Estimated GFR POC Glucose 148 H Random Glucose Lactic Acid Calcium Prot Corrected Calcium Phosphorus Magnesium Total Bilirubin AST ALT Alkaline Phosphatase Ammonia Total Creatine Kinase 586 H CK-MB (CK-2) 2.1 CK-MB (CK-2) % 0.4 Total Protein Albumin Lipase Beta-Hydroxybutyric Acd TSH Free T4 Free T3 Urine Color Urine Clarity Urine pH Ur Specific [place] Urine Protein Urine Glucose (UA) Urine Ketones Urine Occult Blood Urine Nitrate Urine Bilirubin Urine Urobilinogen Ur Leukocyte Esterase Urine RBC Urine WBC Ur Squamous Epith Cells Urine Bacteria Hyaline Casts Urine Mucus Micro UA Comment Urine Culture Comments Nasal Screen MRSA (PCR) Salicylates Urine Opiates Screen Acetaminophen Ur Barbiturates Screen Ur Amphetamines Screen U Benzodiazepines Scrn Urine Cocaine Screen U Cannabinoids Screen Serum Alcohol 10/31/17 13:15 WBC RBC Hgb Hct MCV MCH MCHC RDW Plt Count MPV Prelim Diff (Auto) Neut % (Auto) Lymph % (Auto) Saline % (Auto) Eos % (Auto) Baso % (Auto) Neut # (Auto) Lymph # (Auto) Saline # (Auto) Eos # (Auto) Baso # (Auto) WBC Differential Seg Neuts % (Manual) Band Neuts % (Manual) Lymphocytes % (Manual) Monocytes % (Manual) Basophils % (Manual) Metamyelocytes % (Man) Abs Neuts (Manual) Differential Comment Toxic Granulation Toxic Vacuolation Platelet Estimate Platelet Morphology Basophilic Stippling PT INR APTT Fibrinogen Puncture Site Patient Temperature O2 Saturation ABG pH ABG pCO2 ABG pO2 ABG HCO3 ABG O2 Content ABG Base Excess ABG Methemoglobin Jamar Test Hemoglobin Carboxyhemoglobin O2 Delivery Device Vent Setting Inspired O2 Critical Value Sodium Potassium Chloride Carbon Dioxide Anion Gap BUN Creatinine Estimated GFR POC Glucose Random Glucose Lactic Acid 5.3 H* Calcium Prot Corrected Calcium Phosphorus Magnesium Total Bilirubin AST ALT Alkaline Phosphatase Ammonia Total Creatine Kinase CK-MB (CK-2) CK-MB (CK-2) % Total Protein Albumin Lipase Beta-Hydroxybutyric Acd TSH Free T4 Free T3 Urine Color Urine Clarity Urine pH Ur Specific [place] Urine Protein Urine Glucose (UA) Urine Ketones Urine Occult Blood Urine Nitrate Urine Bilirubin Urine Urobilinogen Ur Leukocyte Esterase Urine RBC Urine WBC Ur Squamous Epith Cells Urine Bacteria Hyaline Casts Urine Mucus Micro UA Comment Urine Culture Comments Nasal Screen MRSA (PCR) Salicylates Urine Opiates Screen Acetaminophen Ur Barbiturates Screen Ur Amphetamines Screen U Benzodiazepines Scrn Urine Cocaine Screen U Cannabinoids Screen Serum Alcohol - Imaging Impressions Abdomen/Pelvis CT 10/30/17 17:35 CONCLUSION: 1. Mild colitis predominantly on the right side with trace free fluid and some inflammatory changes on the right. No bowel obstruction. No free air. 2. Multiple layering gallstones. 3. Subsegmental basilar airspace consolidation in the lungs. Differential diagnosis includes mild pneumonia. 4. Fatty liver enlarged to 25 cm. Chest X-Ray 10/30/17 17:35 CONCLUSION: Subsegmental basilar airspace disease, right greater than left. Differential diagnosis includes pneumonia and atelectasis, in patient with fever. Head CT 10/30/17 17:35 CONCLUSION: 1. No acute intracranial abnormalities. . Chest CTA 10/30/17 19:02 CONCLUSION: 1. Suboptimal bolus but no evidence for central pulmonary emboli. 2. Patchy airspace consolidation right lung base most characteristic of pneumonia. No significant effusion. Foot X-Ray 10/30/17 21:27 CONCLUSION: No acute findings. Mild degenerative change in the right foot. Prominent calcaneal bone spurs. Foot X-Ray 10/30/17 21:27 CONCLUSION: No acute findings. Moderate degenerative change. Bone spurs posterior calcaneus. Lumbar Spine CT 10/30/17 21:43 CONCLUSION: 1. No acute fracture. 2. 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 3. At L5-S1 there is a small central disc protrusion. Mild bilateral foraminal encroachment. Thoracic Spine CT 10/30/17 21:43 CONCLUSION: 1. Negative for acute traumatic injury to the thoracic spine. Small Schmorl's nodes in the lower thoracic spine. Foot MRI 10/31/17 00:00 CONCLUSION: 1. Lumbar Spine MRI 10/31/17 00:00 CONCLUSION: Extruded disc fragment with a donor site at L4-L5 lying posterior to the L4 vertebral body severe right-sided and moderate left-sided foraminal narrowing. There is no evidence of abscess. Sacrum/Coccyx MRI 10/31/17 00:00 CONCLUSION: 1. Negative MRI of the sacrum Chest X-Ray 10/31/17 01:38 CONCLUSION: 1. Interval intubation and placement of right internal jugular central venous line with no pneumothorax. 2. Placement of nasogastric tube. 3. Mid inspiratory study with crowding of the lung vasculature. Assessment and Plan - Plan GAS sepsis ? source - PNA is most likely Acute VDRF Acute ETOH withdrawl Lactic acidosis dc vanco cont zosyn 2 D echo
[2017-10-31] MEDS: Insulin NovoLOG Aspart Correctional Sugar Inj SQ SCH (17:35)
--- NOTE | 2017-10-31 17:55 | ECG ---
Date Performed: 10/31/2017 Time Performed: 10:04:07 PTAGE: 52 years EKG: SINUS TACHYCARDIA ABNORMAL RHYTHM ECG Since the PREVIOUS TRACING , no significant change noted PREVIOUS TRACIN10/30/2017 17.33 DOCTOR: Durga Montaño Interpretating Date/Time 10/31/2017 17:54:56
[2017-10-31 18:29] LABS: Hemoglobin A1c 5.4 % (4.3-6.0)
[2017-10-31 20:19] LABS: Creatinine,Urine Random 287 mg/dL (27-300)
[2017-10-31] MEDS: Hypromellose 0.3% Opth Gel 10 GM Bottle EACH EYE SCH (21:06)
[2017-10-31] MEDS: Mupirocin 2% Nasal Oint Topical Syringe EACH NARE SCH (21:07)
[2017-10-31 22:52] LABS: Hepatitis A IgM Antibody Nonreactive (Nonreactive); Hepatitits B Surface Antigen Nonreactive (Nonreactive)
--- NOTE | 2017-10-31 23:03 | P.CON ---
History of Present Illness Service: Foot and Ankle Surgery/Podiatry Consult date: 10/31/17 Reason for Consult: Left hallux wound, Bilateral cellulitis Primary Care Provider: UNKNOWN Chief Complaint: Fever, back pain History of Present Illness: Podiatry consulted for this 52-year-old male with past medical history of alcohol dependence who was found down by a friend in his hotel room. Patient apparently had an episode of binge drinking. Patient is on a vent and therefore unable to obtain history in chief concern. Podiatry is consulted for left hallux wound, bilateral foot cellulitis. Review of Systems unobtainable due to endotracheal tube PMFSH - History History Provided By: Medical Record - Medical History Medical History: Medical History (Last Reviewed 10/31/17 @ 22:47 by Collette Simms DPM) EtOH dependence - Surgical History Surgical History: Surgical History (Last Reviewed 10/31/17 @ 22:47 by Collette Simms DPM) No pertinent past surgical history - Family History Family History: Family History (Last Updated 10/31/17 @ 08:48 by Terra Abdullahi MD) Uncle EtOH dependence Mother Breast cancer Father Prostate cancer Leukemia - Tobacco History Tobacco Use In Past 30 Days: Yes Smoking Status: Current every day smoker Tobacco Type: Smokeless Tobacco - Alcohol History How Often Do You Have a Drink Containing Alcohol: 4 or more times a week - Substance Use History Substance History: Unable to Obtain - Travel History Recent Travel in the [place] Within the Last 8 Weeks: No Recent Travel Out of the Country Within the Last 8 Weeks: No - Immunization History Tetanus Immunization: Unsure Hx Influenza Vaccine This Season: No Medications and Allergies Active Medications: Active Medications Acetaminophen (Tylenol Liq) 650 mg PO Q8H PRN PRN Reason: FEVER Last Admin: 10/31/17 16:38 Dose: 650 mg Al Hydroxide/Mg Hydroxide (Milk Of Magnesia Liq) 30 ml PO Q12H PRN PRN Reason: Mild Constipation Albuterol (Duoneb Neb ([place])) 1 ampul NEB Q4HR NEB [place] Last Admin: 10/31/17 20:50 Dose: 1 ampul Albuterol (Albuterol Neb (Prn)) 2.5 mg NEB Q2HR NEB PRN PRN Reason: DYSPNEA Artificial Tears (Genteal Severe Dry Eye Relief 0.3% Opth Gel) 1 drops EACH EYE BID [place] Last Admin: 10/31/17 21:06 Dose: 1 drops Bisacodyl (Dulcolax Supp) 10 mg RECTAL DAILY PRN PRN Reason: SEVERE CONSITIPATION Chlorhexidine Gluconate (Chlorhexidine 2% Cloth) 3 pack TOPICAL DAILY@0400 [place] Stop: 11/05/17 03:59 Last Admin: 10/31/17 05:10 Dose: 3 pack Chlorhexidine Gluconate (Chlorhexidine 2% Cloth) 3 pack TOPICAL DAILY@0400 PRN PRN Reason: Extra cloth needed Stop: 11/05/17 03:59 Chlorhexidine Gluconate (Peridex 0.12% Oral Kit) 15 ml OROPHARYNG BID@0800, 1999 [facility] Last Admin: 10/31/17 21:07 Dose: 15 ml Dextrose (D50w Vial) 50 ml IV.PUSH UNSCH PRN PRN Reason: PER HYPOGLYCEMIA PROTOCOL Glucagon (Glucagon Inj) 1 mg OTHER PRN PRN PRN Reason: for Hypoglycemia Protocol Sodium Chloride (Ns Inj) 1,000 mls @ 0 mls/hr IV.SIG .Q0M [facility] Last Infusion: 10/30/17 19:36 Dose: Infused Sodium Chloride (Ns Inj) 1,000 mls @ 0 mls/hr IV.SIG .Q0M [facility] Last Infusion: 10/30/17 21:32 Dose: Infused Lactated Ringer's (Lr 1000 Ml Inj) 1,000 mls @ 150 mls/hr IV.CONT .Q6H40M [facility] Last Admin: 10/31/17 21:06 Dose: 125 mls/hr Pharmacy Profile Note (Vancomycin Consult Pharmacy) 0 mls @ 0 mls/hr OTHER UNSCH [facility] Piperacillin/Tazobactam/Dextrose (Zosyn 3.375 Gm Premix) 50 mls @ 100 mls/hr IV.SIG Q6H [facility] Last Admin: 10/31/17 21:06 Dose: 100 mls/hr Multivitamins 10 ml/ Thiamine HCl 100 mg/ Folic Acid 1 mg/Sodium Chloride 511.2 mls @ 127.8 mls/hr IV.SIG Q24H [facility] Stop: 11/03/17 22:59 Vancomycin HCl 1,700 mg/ (Sodium Chloride) 517 mls @ 250 mls/hr IV.SIG Q12H [facility] Last Admin: 10/31/17 17:36 Dose: 250 mls/hr Magnesium Sulfate Inj 4 gm/ (Sodium Chloride) 100 mls @ 50 mls/hr IV.SIG UNSCH PRN PRN Reason: For Magnesium 0.9 - 1.1 mg/dL Magnesium Sulfate Inj 2 gm/ (Sodium Chloride) 100 mls @ 50 mls/hr IV.SIG UNSCH PRN PRN Reason: For Magnesium 1.2 - 1.6 mg/dL Potassium Chloride (Kcl 40 Meq Premix Inj) 40 meq in 100 mls @ 25 mls/hr IV.SIG Q2H PRN PRN Reason: For Potassium 2.8 - 3.2 mEq/L Potassium Chloride (Kcl 40 Meq Premix Inj) 40 meq in 100 mls @ 25 mls/hr IV.SIG UNSCH PRN PRN Reason: For Potassium 3.3 - 3.5 mEq/L Potassium Chloride (Kcl 20 Meq Premix Inj) 20 meq in 100 mls @ 50 mls/hr IV.SIG Q2H PRN PRN Reason: For Potassium 2.8 - 3.2 mEq/L Potassium Phosphate 30 mmol/ (Sodium Chloride) 260 mls @ 42 mls/hr IV.SIG UNSCH PRN PRN Reason: SEE LABEL COMMENTS Potassium Chloride (Kcl 20 Meq Premix Inj) 20 meq in 100 mls @ 50 mls/hr IV.SIG Q2H PRN PRN Reason: For Potassium 3.3 - 3.5 mEq/L Sodium Phosphate 30 mmol/ (Sodium Chloride) 260 mls @ 42 mls/hr IV.SIG UNSCH PRN PRN Reason: For Phosphorus < 2.5 mg/dL Propofol (Diprivan 1000 Mg/100 Ml Inj) 1,000 mg in 100 mls @ 3.81 mls/hr IV.CONT TITRATE PRN; Protocol PRN Reason: Per Protocol Last Admin: 10/31/17 21:08 Dose: 35 mcg/kg/min, 26.67 mls/hr Norepinephrine Bitartrate 4 mg (/ Sodium Chloride) 250 mls @ 7.5 mls/hr IV.SIG TITRATE PRN; Protocol PRN Reason: Per Protocol Last Admin: 10/31/17 18:20 Dose: 7 mcg/min, 26.25 mls/hr Fentanyl (Fentanyl 10 Mcg/Ml Premix Drip) 2,500 mcg in 250 mls @ 5 mls/hr IV.SIG TITRATE PRN; Protocol PRN Reason: Per Protocol Insulin Aspart (Novolog Insulin Correctional Sugar Inj) 0 unit SQ Q6HR [facility]; Protocol Last Admin: 10/31/17 17:35 Dose: Not Given Lactulose (Lactulose Liq) 30 ml PO DAILY PRN PRN Reason: SEVERE CONSITIPATION Lactulose (Lactulose Liq) 30 ml PO BID [facility] Last Admin: 10/31/17 21:05 Dose: 30 ml Lansoprazole (Prevacid Solutab) 30 mg NG/OG DAILY [facility] Lorazepam (Ativan) 1 mg PO Q4H PRN PRN Reason: for CIWA 8-10 Lorazepam (Ativan) 2 mg PO Q2H PRN PRN Reason: for CIWA 11-14 Magnesium Oxide (Mag-Ox) 800 mg PO UNSCH PRN PRN Reason: For Magnesium 1.2 - 1.6 mg/dL Miscellaneous Information ([facility] Ordered Lab Info) 0 each OTHER ONCE ONE Stop: 11/01/17 05:46 Mupirocin (Bactroban 2% Nasal Oint) 1 applicatio EACH NARE BID [facility] Last Admin: 10/31/17 21:07 Dose: 1 applicatio Potassium Bicarb/Potassium Chloride (K-Lyte Cl Eff) 50 meq PO UNSCH PRN PRN Reason: For Potassium 3.3 - 3.5 mEq/L Potassium Phosphate (K-Phos Original) 2,000 mg PO Q4H PRN PRN Reason: Phosphorus Less Than 2.5 mg/dL Potassium Phosphate (K-Phos Original) 2,000 mg PO UNSCH PRN PRN Reason: SEE LABEL COMMENTS Senna/Docusate Sodium (Leatha-Colace) 1 tab PO BID [facility] Last Admin: 10/31/17 21:08 Dose: 1 tab Sennosides (Senokot) 17.2 mg PO Q12H PRN PRN Reason: Moderate Constipation Sodium Chloride (Ns Flush) 2 ml IV.FLUSH BID [facility] Last Admin: 10/31/17 21:07 Dose: 2 ml Sodium Chloride (Ns Flush) 2 ml IV.FLUSH PRN PRN PRN Reason: FLUSH AFTER USING IV ACCESS Terbutaline Sulfate (Brethine Inj) 1 mg SQ UNSCH PRN PRN Reason: For Extravasation Allergies Allergy/AdvReac Type Severity Reaction Status Date / Time No Known Allergies Allergy Unverified 10/30/17 17:35 Home Medications Medication Instructions Recorded Confirmed Type No Known Home Medications 10/30/17 10/30/17 History Physical Exam Vital signs: Vital Signs 10/30/17 23:00 10/30/17 23:56 10/31/17 00:00 Temperature 102.7 F H 103.1 F H Pulse Rate 135 H 130 H Respiratory Rate 40 H 33 H Blood Pressure 145/75 H 120/69 Pulse Oximetry 89 L 89 L 95 10/31/17 04:00 10/31/17 06:00 10/31/17 07:40 Temperature 100 F H Pulse Rate 111 H 109 H Respiratory Rate 14 26 H Blood Pressure 81/54 L Pulse Oximetry 95 100 10/31/17 08:00 10/31/17 08:45 10/31/17 10:00 Temperature 101.0 F H Pulse Rate 104 H 106 H 104 H Respiratory Rate 26 H 26 H Blood Pressure 90/57 L Pulse Oximetry 100 10/31/17 11:22 10/31/17 11:25 10/31/17 12:00 Temperature 101.5 F H Pulse Rate 104 H 104 H Respiratory Rate 23 24 Blood Pressure 90/60 L Pulse Oximetry 98 10/31/17 13:15 10/31/17 16:00 10/31/17 16:21 Temperature 102.5 F H Pulse Rate 120 H 115 H Respiratory Rate 31 H 25 H Blood Pressure 128/66 Pulse Oximetry 100 96 10/31/17 16:23 10/31/17 18:00 10/31/17 20:50 Temperature Pulse Rate 102 H 104 H Respiratory Rate 29 H 22 Blood Pressure Pulse Oximetry Intake & Output 10/31/17 10/31/17 11/01/17 06:59 18:59 06:59 Intake Total 5638 / 5638 3417 / 3417 1000 / 1000 Output Total 600 / 600 850 / 850 Balance 5038 / 5038 2567 / 2567 1000 / 1000 Weight 128.5 kg 128.5 kg Intake: IV 3400 / 3400 3417 / 3417 1000 / 1000 LR 1000 mL Inj 1,000 ML @ 150 2000 / 2000 1000 / 1000 mls/hr IV.CONT .Q6H40M [facility] Rx#: [id number] Diprivan 1000 mg/100 ml Inj 1, 100 / 100 200 / 200 000 mg In 100 ml @ 5 MCG/KG/MIN 3.81 mls/hr IV.CONT TITRATE PRN Rx#:[id number] Ofirmev Inj 1,000 mg In 100 ml 100 / 100 @ 400 mls/hr IV.SIG ONCE ONE Rx #:[id number] Magnesium Sulfate 1 gm/D5W 100 100 / 100 100 / 100 ml Premix 100 ML @ 100 mls/hr IV.SIG Q1H [place] Rx#:[id number] Levophed Inj 4 MG In NS Inj 246 500 / 500 ML @ 2 MCG/MIN 7.5 mls/hr IV. SIG TITRATE PRN Rx#:[id number] Zosyn 3.375 GM Premix 50 ML @ 100 / 100 100 / 100 100 mls/hr IV.SIG Q6H [place] Rx#: [id number] NS Inj 1,000 ML @ Wide Open IV. 3000 / 3000 SIG .Q0M [place] Rx#:[id number] Vancomycin Inj 1,700 MG In NS 517 / 517 Inj 500 ML @ 250 mls/hr IV.SIG Q12H [place] Rx#:[id number] Oral 0 / 0 Other 2238 / 2238 Output: Urine 300 / 300 150 / 150 Urine Amount (Catheter) 500 / 500 Indwelling Urethral Catheter 500 / 500 Gastric Drainage 300 / 300 200 / 200 Orogastric Tube 300 / 300 200 / 200 Narrative: Lower extremity physical exam: Vascular: Dorsalis pedis palpable, posterior tibial palpable. Capillary refill time within normal limits to digits 5 bilateral foot. Edema present bilateral lower extremity Neuro: Gross sensation unable to assess. Pinpoint sensation unable to assess. No hyperalgesia noted to bilateral lower extremity Dermatology: Normal temperature and turgor to bilateral lower extremity. Left hallux distal tip ulceration with granular base, associated erythema and edema, no purulence drainage noted. Multiple abrasions noted to bilateral digits 2-4 superficial in nature. Right hallux superficial abrasion with associated erythema and edema. Musculoskeletal: No gross deformity noted. - Urinary Catheter Management Indwelling Urethral Catheter Cath placed during this visit: yes Reason for continuing: Hourly intake/output Insertion date: 10/31/17 Insertion time: 10:30 Assessment and Plan - Plan 52 year old male with bilateral LE digital ulcerations Patient examined and evaluated Nursing present bedside Discussed wound care with nurse Nursing wound care orders placed MRI reviewed no OM noted to left foot, cellulitis noted No intervention planned, conservative wound care
[2017-10-31] MEDS: Multivitamin Inj 10 ML, Thiamine Inj 100 MG, Folic Acid Inj 1 MG in Sodium Chlor 0.9% I... IV.SIG SCH (23:09)
[2017-10-31] MEDS: fentaNYL 10 mcg/mL Premix Drip 2,500 MCG/250 ML BAG IV.SIG PRN (23:09)
[2017-11-01] MEDS: Oral Hygiene Kit OROPHARYNG SCH ×4 (00:38→15:27)
[2017-11-01] MEDS: Insulin NovoLOG Aspart Correctional Sugar Inj SQ SCH ×4 (00:38→18:06)
[2017-11-01] MEDS: Piperacil/Tazo 3.375 GM Premix 50 ML IV.SIG SCH ×4 (03:06→21:00)
[2017-11-01] MEDS: Propofol 1000 mg/100 ml Inj 1,000 MG/100 ML BOTTLE IV.CONT PRN ×2 (03:06→17:28)
[2017-11-01] MEDS: Norepinephrine Inj 4 MG in Sodium Chlor 0.9% Inj 246 ML IV.SIG PRN ×3 (03:14→22:49)
[2017-11-01 05:06] LABS: Baso # (Auto) 0.1 th/mm3 (0.0-0.2); Baso % (Auto) 0.5 % (0.0-2.0); Eos # (Auto) 0.1 th/mm3 (0.0-0.4); Eos % (Auto) 0.3 % (0.0-4.0); Hematocrit 38.3 % (39.0-51.0); Hemoglobin 12.6 gm/dL (13.0-17.0); Lymph # (Auto) 1.1 th/mm3 (1.0-4.8); Lymph % (Auto) 5.5 % (9.0-44.0); Mean Corpuscular HGB Conc 32.9 % (32.0-36.0); Mean Corpuscular Hemoglobin 34.4 pg (27.0-34.0); Mean Corpuscular Volume 104.4 fL (80.0-100.0); Mean Platelet Volume 9.5 fL (7.0-11.0); Mono # (Auto) 0.7 th/mm3 (0.0-0.9); Mono % (Auto) 3.7 % (0.0-8.0); Neut # (Auto) 17.3 th/mm3 (1.8-7.7); Platelet Count 56 th/mm3 (150-450); Red Blood Count 3.67 mil/mm3 (4.50-5.90); Red Cell Distribution Width 15.3 % (11.6-17.2); White Blood Count 19.2 th/mm3 (4.0-11.0)
[2017-11-01] MEDS: Vancomycin Inj 1,700 MG in Sodium Chlor 0.9% Inj 500 ML IV.SIG SCH (05:17)
[2017-11-01] MEDS: Chlorhexidine Gluconate 2% 1 Pack (2 Cloths) TOPICAL SCH (05:17)
[2017-11-01 05:30] LABS: Activated Partial Thrombo Time 67.9 sec (24.3-30.1); Prothrombin Time 20.7 sec (9.8-11.6)
[2017-11-01 05:34] LABS: Albumin 2.2 g/dL (3.4-5.0); Calcium 7.2 mg/dL (8.5-10.1); Carbon Dioxide 23.7 meq/L (21.0-32.0); Potassium 5.1 meq/L (3.5-5.1)
[2017-11-01 05:45] LABS: Magnesium 1.6 mg/dL (1.5-2.5); Vancomycin,Trough 30.6 mcg/mL (5.0-10.0)
[2017-11-01] MEDS ORDERED: Pharmacy Ordered Lab Info OTHER ONE (05:45)
[2017-11-01 06:00] LABS: ABG Base Excess -5.5 mmol/L (-2-2); ABG PCO2 45 mmHg (38-42); ABG PO2 136 mmHG (61-120)
[2017-11-01 06:17] LABS: Troponin I 0.73 ng/mL (0.02-0.05)
[2017-11-01 06:32] LABS: CKMB Percent 0.2 % (0.0-4.0); Creatine Kinase MB 2.1 ng/mL (0.5-3.6)
--- NOTE | 2017-11-01 06:45 | XR ---
EXAM DATE: 11/01/2017 6:24 AM EDT AGE/SEX: 52 years / Male INDICATIONS: Shortness of breath. CLINICAL DATA: This is the patient's subsequent encounter. Patient reports that signs and symptoms h ave been present for 4 - 6 days and indicates a pain score of Nonresponsive. MEDICAL/SURGICAL HISTORY: None. None. COMPARISON: C, CHEST 1V SINGLE AP, 10/31/2017. . FINDINGS: A single AP portable, semierect view of the chest was obtained. Endotracheal tube remains in place wi th the tip 4 cm above the margot. The nasogastric tube and right internal jugular central venous line are unchanged. The study is mid inspiratory with crowding of the lung vasculature. Perihilar and bib asilar opacities are present and appear mildly increased. The costophrenic angles are not well-visual ized. There is mild cardiomegaly. The bony thorax is intact. CONCLUSION: Mid inspiratory study with crowding of the lung vasculature and perihilar and bibasilar opacities whi ch appear mildly increased. Electronically signed by: Cosmo Pope MD 11/01/2017 6:43 AM EDT
--- NOTE | 2017-11-01 08:00 | P.PNCC ---
Subjective Subjective Remarks/Hospital Course: 52-year-old male with a past medical history of alcohol dependence who sought medical attention after a friend found him in the hotel room with fever and ill appearance after episode of binge drinking. Patient has multiple bruises and states he has been falling often which he attributes to poor footwear. His primary complaint is pain and tenderness of his sacrum and L4/L5 region. Denies IVDU. Denies CP, SOB, Cough, sputum production, urinary symptoms , abdominal pain, nausea, vomiting, headache, neck pain, neck stiffness. He does report some diarrhea, nonbloody, non melena and difficult to quantify. He says he has "always drank EtOH heavily, but it has been drinking more than usual over the last 2 weeks". He is tremulous, hypertensive, tachycardic with clinical appearance of EtOH withdrawal. ED workup included CT brain which is negative, CT chest with RLL consolidation, CT abd/pelvis with wall thickening c/ w colitis of ascending/transverse colon. WBC 23.5, lactic acid 11.4. In the ED he has received vancomycin, piperacillin/tazobactam, NS 2 L bolus, magnesium sulfate 1 gram IV, Ativan 2 mg IV, Thiamine 100 mg IV, Ofirmev 1 gram IV. SUBJECTIVE: 10/31: Remains on norepinephrine drip at 8 mcg/min. Weaning FiO2 and ventilator. Minimal response on the ventilator on propofol and dexmedetomidine drips. MRI of the lumbar spine, sacrum and foot will be performed this afternoon. Noted gram-positive cocci bacteremia. 2D echocardiogram ordered repeat blood cultures today. Currently on vancomycin and piperacillin/ tazobactam. 11/01 Patient is sedated with Diprivan and Fentanyl drips. On Levophed 9 mics. Renal function worse this morning with Cr: 2.89 from 1.95. Afebrile. Objective Vital Signs / I&O: Vital Signs 10/31/17 08:00 10/31/17 08:45 10/31/17 10:00 Temperature 101.0 F H Pulse Rate 104 H 106 H 104 H Respiratory Rate 26 H 26 H Blood Pressure 90/57 L Pulse Oximetry 100 10/31/17 11:22 10/31/17 11:25 10/31/17 12:00 Temperature 101.5 F H Pulse Rate 104 H 104 H Respiratory Rate 23 24 Blood Pressure 90/60 L Pulse Oximetry 98 10/31/17 13:15 10/31/17 16:00 10/31/17 16:21 Temperature 102.5 F H Pulse Rate 120 H 115 H Respiratory Rate 31 H 25 H Blood Pressure 128/66 Pulse Oximetry 100 96 10/31/17 16:23 10/31/17 16:45 10/31/17 17:00 Temperature Pulse Rate 106 H 106 H Respiratory Rate 29 H 27 H 25 H Blood Pressure 97/56 L 97/55 L Pulse Oximetry 10/31/17 17:15 10/31/17 17:30 10/31/17 17:45 Temperature Pulse Rate 107 H 110 H 103 H Respiratory Rate 26 H 24 26 H Blood Pressure 102/61 107/63 100/59 L Pulse Oximetry 10/31/17 18:00 10/31/17 18:15 10/31/17 18:30 Temperature Pulse Rate 102 H 102 H 101 H Respiratory Rate 27 H 26 H 28 H Blood Pressure 100/59 L 98/56 L 96/53 L Pulse Oximetry 10/31/17 18:45 10/31/17 19:00 10/31/17 19:15 Temperature Pulse Rate 105 H 105 H 104 H Respiratory Rate 27 H 25 H 26 H Blood Pressure 96/59 L 98/59 L 100/58 L Pulse Oximetry 10/31/17 19:30 10/31/17 19:45 10/31/17 20:00 Temperature 101.0 F H Pulse Rate 104 H 104 H 104 H Respiratory Rate 25 H 22 25 H Blood Pressure 101/56 L 103/59 L 97/55 L Pulse Oximetry 10/31/17 20:15 10/31/17 20:30 10/31/17 20:45 Temperature Pulse Rate 104 H 103 H 104 H Respiratory Rate 25 H 24 21 Blood Pressure 97/55 L 99/56 L 102/55 L Pulse Oximetry 10/31/17 20:50 10/31/17 21:00 10/31/17 21:15 Temperature Pulse Rate 104 H 104 H 105 H Respiratory Rate 22 22 19 Blood Pressure 96/55 L 101/57 L Pulse Oximetry 10/31/17 21:30 10/31/17 21:45 10/31/17 22:00 Temperature Pulse Rate 107 H 106 H 105 H Respiratory Rate 20 21 21 Blood Pressure 91/52 L 98/56 L 98/58 L Pulse Oximetry 10/31/17 22:15 10/31/17 22:30 10/31/17 23:00 Temperature Pulse Rate 105 H 105 H 104 H Respiratory Rate 21 22 22 Blood Pressure 98/58 L 95/59 L Pulse Oximetry 97 97 11/01/17 00:00 11/01/17 00:26 11/01/17 00:33 Temperature 99.7 F H Pulse Rate 103 H 102 H Respiratory Rate 14 18 14 Blood Pressure 90/49 L Pulse Oximetry 96 96 11/01/17 01:00 11/01/17 02:00 11/01/17 03:00 Temperature Pulse Rate 104 H 107 H 106 H Respiratory Rate 18 17 16 Blood Pressure Pulse Oximetry 96 97 96 11/01/17 04:00 11/01/17 04:08 11/01/17 04:37 Temperature 99.6 F Pulse Rate 107 H 106 H Respiratory Rate 16 16 16 Blood Pressure Pulse Oximetry 97 100 99 11/01/17 05:00 11/01/17 06:00 11/01/17 06:14 Temperature Pulse Rate 113 H 110 H 111 H Respiratory Rate 16 13 13 Blood Pressure 96/52 L 96/52 L Pulse Oximetry 100 98 99 Intake & Output 10/31/17 11/01/17 11/01/17 18:59 06:59 18:59 Intake Total 3417 / 3417 1916 Output Total 850 / 850 250 / 250 Balance 2567 / 2567 1667 / 1667 Weight 128.5 kg 130.5 kg Intake: IV 3417 / 3417 1916 / 1916 LR 1000 mL Inj 1,000 ML @ 150 2000 / 2000 1000 / 1000 mls/hr IV.CONT .Q6H40M [facility] Rx#: [id number] Diprivan 1000 mg/100 ml Inj 1, 200 / 200 100 / 100 000 mg In 100 ml @ 5 MCG/KG/MIN 3.81 mls/hr IV.CONT TITRATE PRN Rx#:[id number] Magnesium Sulfate 1 gm/D5W 100 100 / 100 ml Premix 100 ML @ 100 mls/hr IV.SIG Q1H [facility] Rx#:[id number] Levophed Inj 4 MG In NS Inj 246 500 / 500 250 / 250 ML @ 2 MCG/MIN 7.5 mls/hr IV. SIG TITRATE PRN Rx#:[id number] Zosyn 3.375 GM Premix 50 ML @ 100 / 100 50 / 50 100 mls/hr IV.SIG Q6H [facility] Rx#: [id number] Vancomycin Inj 1,700 MG In NS 517 / 517 517 / 517 Inj 500 ML @ 250 mls/hr IV.SIG Q12H [facility] Rx#:[id number] Oral 0 / 0 0 / 0 Output: Urine 150 / 150 0 / 0 Urine Amount (Catheter) 500 / 500 250 / 250 Indwelling Urethral Catheter 500 / 500 250 / 250 Gastric Drainage 200 / 200 Orogastric Tube 200 / 200 Other: # Bowel Movements 0 Result Diagrams: 11/01/17 04:40 11/01/17 04:40 Other Results: Abnormal Lab Results 10/31/17 10/31/17 10/31/17 04:05 12:04 12:04 WBC RBC Hgb Hct MCV MCH MCHC RDW Plt Count MPV Prelim Diff (Auto) Neut % (Auto) Lymph % (Auto) [place] % (Auto) Eos % (Auto) Baso % (Auto) Neut # (Auto) Lymph # (Auto) [place] # (Auto) Eos # (Auto) Baso # (Auto) Differential Comment PT INR APTT Fibrinogen Puncture Site Patient Temperature O2 Saturation ABG pH ABG pCO2 ABG pO2 ABG HCO3 ABG O2 Content ABG Base Excess ABG Methemoglobin Hemoglobin Carboxyhemoglobin Critical Value Sodium Potassium 5.2 H Chloride Carbon Dioxide Anion Gap BUN Creatinine Estimated GFR POC Glucose Random Glucose Hemoglobin A1c 5.4 Lactic Acid Calcium Prot Corrected Calcium Phosphorus Magnesium Total Bilirubin AST ALT Alkaline Phosphatase Ammonia Total Creatine Kinase 586 H CK-MB (CK-2) 2.1 CK-MB (CK-2) % 0.4 Troponin I Total Protein Albumin Ur Random Creatinine Ur Random Sodium Vancomycin Trough Hepatitis A IgM Ab Hep Bs Antigen Hep B Core IgM Ab Hep C IgG Ab 10/31/17 10/31/17 10/31/17 12:04 13:15 16:30 WBC RBC Hgb Hct MCV MCH MCHC RDW Plt Count MPV Prelim Diff (Auto) Neut % (Auto) Lymph % (Auto) [place] % (Auto) Eos % (Auto) Baso % (Auto) Neut # (Auto) Lymph # (Auto) [place] # (Auto) Eos # (Auto) Baso # (Auto) Differential Comment PT INR APTT Fibrinogen Puncture Site Patient Temperature O2 Saturation ABG pH ABG pCO2 ABG pO2 ABG HCO3 ABG O2 Content ABG Base Excess ABG Methemoglobin Hemoglobin Carboxyhemoglobin Critical Value Sodium Potassium Chloride Carbon Dioxide Anion Gap BUN Creatinine Estimated GFR POC Glucose 148 H Random Glucose Hemoglobin A1c Lactic Acid 5.3 H* Calcium Prot Corrected Calcium Phosphorus Magnesium Total Bilirubin AST ALT Alkaline Phosphatase Ammonia Total Creatine Kinase CK-MB (CK-2) CK-MB (CK-2) % Troponin I Total Protein Albumin Ur Random Creatinine 287 Ur Random Sodium 8 Vancomycin Trough Hepatitis A IgM Ab Hep Bs Antigen Hep B Core IgM Ab Hep C IgG Ab 10/31/17 10/31/17 10/31/17 17:34 18:20 18:20 WBC RBC Hgb Hct MCV MCH MCHC RDW Plt Count MPV Prelim Diff (Auto) Neut % (Auto) Lymph % (Auto) Chester % (Auto) Eos % (Auto) Baso % (Auto) Neut # (Auto) Lymph # (Auto) [place] # (Auto) Eos # (Auto) Baso # (Auto) Differential Comment PT INR APTT Fibrinogen Puncture Site Patient Temperature O2 Saturation ABG pH ABG pCO2 ABG pO2 ABG HCO3 ABG O2 Content ABG Base Excess ABG Methemoglobin Hemoglobin Carboxyhemoglobin Critical Value Sodium Potassium Chloride Carbon Dioxide Anion Gap BUN Creatinine Estimated GFR POC Glucose 94 Random Glucose Hemoglobin A1c Lactic Acid 4.3 H* Calcium Prot Corrected Calcium Phosphorus Magnesium Total Bilirubin AST ALT Alkaline Phosphatase Ammonia Total Creatine Kinase CK-MB (CK-2) CK-MB (CK-2) % Troponin I Total Protein Albumin Ur Random Creatinine Ur Random Sodium Vancomycin Trough Hepatitis A IgM Ab Nonreactive Hep Bs Antigen Nonreactive Hep B Core IgM Ab Nonreactive Hep C IgG Ab Nonreactive 11/01/17 11/01/17 11/01/17 00:36 04:40 04:40 WBC 19.2 H RBC 3.67 L Hgb 12.6 L Hct 38.3 L MCV 104.4 H MCH 34.4 H MCHC 32.9 RDW 15.3 Plt Count 56 L MPV 9.5 Prelim Diff (Auto) Slide review pending Neut % (Auto) 90.0 H Lymph % (Auto) 5.5 L Chester % (Auto) 3.7 Eos % (Auto) 0.3 Baso % (Auto) 0.5 Neut # (Auto) 17.3 H Lymph # (Auto) 1.1 Chester # (Auto) 0.7 Eos # (Auto) 0.1 Baso # (Auto) 0.1 Differential Comment . PT INR APTT Fibrinogen Puncture Site Patient Temperature O2 Saturation ABG pH ABG pCO2 ABG pO2 ABG HCO3 ABG O2 Content ABG Base Excess ABG Methemoglobin Hemoglobin Carboxyhemoglobin Critical Value Sodium Potassium Chloride Carbon Dioxide Anion Gap BUN Creatinine Estimated GFR POC Glucose 99 Random Glucose Hemoglobin A1c Lactic Acid 6.0 H* Calcium Prot Corrected Calcium Phosphorus Magnesium Total Bilirubin AST ALT Alkaline Phosphatase Ammonia Total Creatine Kinase CK-MB (CK-2) CK-MB (CK-2) % Troponin I Total Protein Albumin Ur Random Creatinine Ur Random Sodium Vancomycin Trough Hepatitis A IgM Ab Hep Bs Antigen Hep B Core IgM Ab Hep C IgG Ab 11/01/17 11/01/17 11/01/17 04:40 04:40 04:40 WBC RBC Hgb Hct MCV MCH MCHC RDW Plt Count MPV Prelim Diff (Auto) Neut % (Auto) Lymph % (Auto) [place] % (Auto) Eos % (Auto) Baso % (Auto) Neut # (Auto) Lymph # (Auto) [place] # (Auto) Eos # (Auto) Baso # (Auto) Differential Comment PT 20.7 H INR 2.0 APTT 67.9 H D Fibrinogen 209 L Puncture Site Patient Temperature O2 Saturation ABG pH ABG pCO2 ABG pO2 ABG HCO3 ABG O2 Content ABG Base Excess ABG Methemoglobin Hemoglobin Carboxyhemoglobin Critical Value Sodium 137 Potassium 5.1 Chloride 102 Carbon Dioxide 23.7 Anion Gap 11 BUN 26 H Creatinine 2.89 H Estimated GFR 23 L POC Glucose Random Glucose 105 Hemoglobin A1c Lactic Acid Calcium 7.2 L* Prot Corrected Calcium 7.3 L* Phosphorus 5.0 H D Magnesium 1.6 Total Bilirubin 8.9 H AST 190 H ALT 37 Alkaline Phosphatase 100 Ammonia 57 H Total Creatine Kinase 882 H CK-MB (CK-2) 2.1 CK-MB (CK-2) % 0.2 Troponin I 0.73 H* Total Protein 7.0 Albumin 2.2 L Ur Random Creatinine Ur Random Sodium Vancomycin Trough 30.6 H Hepatitis A IgM Ab Hep Bs Antigen Hep B Core IgM Ab Hep C IgG Ab 11/01/17 11/01/17 04:40 05:47 WBC RBC Hgb Hct MCV MCH MCHC RDW Plt Count MPV Prelim Diff (Auto) Neut % (Auto) Lymph % (Auto) [place] % (Auto) Eos % (Auto) Baso % (Auto) Neut # (Auto) Lymph # (Auto) [place] # (Auto) Eos # (Auto) Baso # (Auto) Differential Comment PT INR APTT Fibrinogen Puncture Site Not Reportable Patient Temperature 98.6 O2 Saturation 96 ABG pH 7.27 L* ABG pCO2 45 H ABG pO2 136 H ABG HCO3 20 L ABG O2 Content 16.9 ABG Base Excess -5.5 L ABG Methemoglobin 1.3 Hemoglobin 12.3 Carboxyhemoglobin 0.5 Critical Value Yes Sodium Potassium Chloride Carbon Dioxide Anion Gap BUN Creatinine Estimated GFR POC Glucose Random Glucose Hemoglobin A1c Lactic Acid Calcium Prot Corrected Calcium Phosphorus Magnesium Total Bilirubin AST ALT Alkaline Phosphatase Ammonia Total Creatine Kinase CK-MB (CK-2) CK-MB (CK-2) % Troponin I Total Protein Albumin Ur Random Creatinine Ur Random Sodium Vancomycin Trough Cancelled Hepatitis A IgM Ab Hep Bs Antigen Hep B Core IgM Ab Hep C IgG Ab Imaging: Abdomen/Pelvis CT 10/30/17 17:35 CONCLUSION: 1. Mild colitis predominantly on the right side with trace free fluid and some inflammatory changes on the right. No bowel obstruction. No free air. 2. Multiple layering gallstones. 3. Subsegmental basilar airspace consolidation in the lungs. Differential diagnosis includes mild pneumonia. 4. Fatty liver enlarged to [address] 10/30/17 17:35 CONCLUSION: 1. No acute intracranial abnormalities. . Chest CTA 10/30/17 19:02 CONCLUSION: 1. Suboptimal bolus but no evidence for central pulmonary emboli. 2. Patchy airspace consolidation right lung base most characteristic of pneumonia. No significant effusion. Foot X-Ray 10/30/17 21:27 CONCLUSION: No acute findings. Moderate degenerative change. Bone spurs posterior calcaneus. Lumbar Spine CT 10/30/17 21:43 CONCLUSION: 1. No acute fracture. 2. 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 3. At L5-S1 there is a small central disc protrusion. Mild bilateral foraminal encroachment. Thoracic Spine CT 10/30/17 21:43 CONCLUSION: 1. Negative for acute traumatic injury to the thoracic spine. Small Schmorl's nodes in the lower thoracic spine. Foot MRI 10/31/17 00:00 CONCLUSION: 1. Lumbar Spine MRI 10/31/17 00:00 CONCLUSION: Extruded disc fragment with a donor site at L4-L5 lying posterior to the L4 vertebral body severe right-sided and moderate left-sided foraminal narrowing. There is no evidence of abscess. Sacrum/Coccyx MRI 10/31/17 00:00 CONCLUSION: 1. Negative MRI of the sacrum Chest X-Ray 11/01/17 06:00 CONCLUSION: Mid inspiratory study with crowding of the lung vasculature and perihilar and bibasilar opacities which appear mildly increased. Objective Remarks: GENERAL: 52-year-old male currently orotracheally intubated HEAD: Atraumatic. Normocephalic. EYES: Pupils equal and round, 1 mm and briskly reactive bilaterally. Ecchymosis right upper eyelid. Subconjunctival hemorrhage on right lateral and inferior bulbar conjunctiva. ENT: No nasal bleeding or discharge. Mucous membranes dry and pink. Oropharynx without exudate. NECK: Trachea midline. No JVD. No meningismus CARDIOVASCULAR: Tachycardic,RR. S1, S2 no S4. Faint 1/6 murmur pansystolic RESPIRATORY: Diminished breath sounds throughout. No wheezing. GASTROINTESTINAL: Abdomen obese and protuberant but soft, non-tender to palpation. Bowel sounds hypoactive. MUSCULOSKELETAL/SKIN: Extremities without significant peripheral edema. Deep tissue injury medial aspect right lower extremity with chronic venous stasis changes. There is erythema and warmth of dorsum of right 1st toe. There is ulceration on plantar aspect of left 1st toe, slightly smaller than size of a quarter with some fluctuance and tenderness, no exudate. Left 3rd toe with scaling, no appreciable warmth or erythema. DP pulses intact bilat. NEUROLOGICAL: Cranial nerves II through XII grossly intact. Withdraws to pain bilateral upper lower extremities. Currently not following commands. Positive gag and cough and corneal reflex. Assessment and Plan - Assessment and Plan Plan: NEURO/PSYCH: EtOH dependence - 147 on admission Delirium tremens Acute toxic metabolic encephalopathy secondary to hyperammonemia CT brain 10/30- for acute intracranial abnormality On propofol and Fentnayl infusion for sedation. Daily sedation vacation. Goal of RASS -2 Continue thiamine/folic acid/multivitamin IV bag 3 days. Continue to evaluate for DTs/seizure precaution Follow up on EEG Acetaminophen 650 mg p.o. every 8 hours as needed fever RESP: Acute respiratory failure Aspiration pneumonia Intubated 10/31 for airway protection. [facility] Ventilator bundle Albuterol/ipratropium aerosols every 4 hours with albuterol aerosols every 2 hours as needed CPAP trial and ventilator weaning when stabilized CV: Septic shock with hypotension Lactic acidemia Clinically appeared very volume depleted. Received 5 L of crystalloid in the form of bolus. We will continue LR at 150 mL/h. Wean off Levophed keep MAP>65mmHg Trend lactic acid every 6 hours until cleared. Lactic acid 6 from 4.3 2D echocardiogram ordered. Monitor trop. Place on stress dose stress steroids- HC 50ml IV Q6 GI: Right/transverse mild colitis/acute Alcoholic hepatitis Hepatic steatosis Hepatosplenomegaly. Liver is 25 cm. Cholelithiasis On Lactulose 30ml BID, Monitor Ammonia level 57 today OG tube inserted in place to low intermittent wall suction following intubation. Normal-appearing GI secretions CT abdomen and pelvis demonstrates thickening of right colon extending into transverse colon. There is hepatomegaly and steatosis.. Clinical exam upon presentation was benign and did not appear c/w mesenteric ischemia. We will continue to monitor serial abdominal exams and lactic acid. GI is following Start tube feeds- Nepro with goal rate 40ml/hr FEN/RENAL: Acute kidney injury Insert Argueta to monitor intake and output every hour in the setting of shock and acute kidney injury. Replace electrolytes as needed No hydronephrosis on CT abdomen/pelvis. Monitor renal function, I/O's, avoid nephrotoxins Cr: 2.89 from 1.95. Renal eval On LR @150ml/hr ID: Gram-positive cocci bacteremia Cellulitis toes bilaterally Aspiration pneumonia, right lower lobe, present on admission He received piperacillin/tazobactam and vancomycin in the emergency department. Pertinent cultures Blood culture x 2 10/30 -gram-positive cocci/strep pyogenes - BC 11/01: pending Sputum 10/31 -pending Follow-up C diff, urine pneumococcal antigen, urine Legionella antigen, influenza a and B- all negative Obtain MRI bilat feet, lumbar spine and sacrum to evaluate for osteo. Obtain 2D echocardiogram rule out endocarditis Infectious disease is following- Dr. Segovia Continue abx ( Zosyn) monitor for signs of infections ( Fever, WBC) MRI foot: No abscess, HEME: Acute coagulopathy DIC - Leukocytosis Macrocytic anemia Thrombocytopenia Monitor coags/CBC/platelets. There is no significant active bleeding at this time, Monitor CBC. coags, Fibrinogen level: 209, INR 2.0 ENDO: Acute hyperglycemia TSH 0.25. Low T3 at 1.57. Low normal T4. ? undiagnosed diabetes mellitus. Sliding-scale insulin with aspart insulin with Accu-Cheks every 6 hours to maintain euglycemia/medium regimen MSK: Elevated BMI Low back pain L5/S1 disc protrusion Pars defect L4/L5 Weight loss encouraged PROPH: SCDs for DVT prophylaxis. Avoid pharmacologic DVT prophylaxis at this time due to coagulopathy. Lansoprazole for stress ulcer prophylaxis ACCESS: Right IJ central venous line placed 10/31. Left radial arterial line placed 11/01. patient is critically ill with multiorgan injury resp failure, septic shock, renal failure, pneumonia. CCT 35 mins
[2017-11-01] MEDS: Senna/Docusate Sodium 8.6/50 MG Tablet PO SCH ×2 (08:22→21:00)
[2017-11-01] MEDS: Mupirocin 2% Nasal Oint Topical Syringe EACH NARE SCH ×2 (08:22→21:01)
[2017-11-01 08:24] LABS: Dohle Bodies Present; Lymphocytes 3 % (9-44); Metamyelocytes 4 % (0-1); Monocytes 3 % (0-8); Toxic Vacuolation Present
[2017-11-01] MEDS: Hypromellose 0.3% Opth Gel 10 GM Bottle EACH EYE SCH ×2 (08:24→21:01)
[2017-11-01 08:25] LABS: Platelet Morphology Normal (Normal)
[2017-11-01] MEDS: Chlorhexidine 0.12% Oral Kit 15 ML UDC OROPHARYNG SCH ×2 (08:25→21:00)
[2017-11-01] MEDS: fentaNYL 10 mcg/mL Premix Drip 2,500 MCG/250 ML BAG IV.SIG PRN (08:46)
[2017-11-01] MEDS ORDERED: Calcium Gluconate Inj 1 GM in Dextrose 5% in Water Inj 100 ML IV.SIG ONE ×2 (10:00)
[2017-11-01] MEDS: Hydrocortisone Sod Succinate 100 MG Vial IV.PUSH SCH ×3 (10:18→21:00)
--- NOTE | 2017-11-01 10:38 | P.PNGI ---
Subjective Interval history: Pt remains on sedation and mechanically ventilated via ETT. OG to LIWS. Per RN no BM. <BibcharlesAbigail - Last Filed: 11/01/17 10:35> Physical Exam Vital signs: Vital Signs 10/31/17 11:22 10/31/17 11:25 10/31/17 12:00 Temperature 101.5 F H Pulse Rate 104 H 104 H Respiratory Rate 23 24 Blood Pressure 90/60 L Pulse Oximetry 98 10/31/17 13:15 10/31/17 16:00 10/31/17 16:21 Temperature 102.5 F H Pulse Rate 120 H 115 H Respiratory Rate 31 H 25 H Blood Pressure 128/66 Pulse Oximetry 100 96 10/31/17 16:23 10/31/17 16:45 10/31/17 17:00 Temperature Pulse Rate 106 H 106 H Respiratory Rate 29 H 27 H 25 H Blood Pressure 97/56 L 97/55 L Pulse Oximetry 10/31/17 17:15 10/31/17 17:30 10/31/17 17:45 Temperature Pulse Rate 107 H 110 H 103 H Respiratory Rate 26 H 24 26 H Blood Pressure 102/61 107/63 100/59 L Pulse Oximetry 10/31/17 18:00 10/31/17 18:15 10/31/17 18:30 Temperature Pulse Rate 102 H 102 H 101 H Respiratory Rate 27 H 26 H 28 H Blood Pressure 100/59 L 98/56 L 96/53 L Pulse Oximetry 10/31/17 18:45 10/31/17 19:00 10/31/17 19:15 Temperature Pulse Rate 105 H 105 H 104 H Respiratory Rate 27 H 25 H 26 H Blood Pressure 96/59 L 98/59 L 100/58 L Pulse Oximetry 10/31/17 19:30 10/31/17 19:45 10/31/17 20:00 Temperature 101.0 F H Pulse Rate 104 H 104 H 104 H Respiratory Rate 25 H 22 25 H Blood Pressure 101/56 L 103/59 L 97/55 L Pulse Oximetry 10/31/17 20:15 10/31/17 20:30 10/31/17 20:45 Temperature Pulse Rate 104 H 103 H 104 H Respiratory Rate 25 H 24 21 Blood Pressure 97/55 L 99/56 L 102/55 L Pulse Oximetry 10/31/17 20:50 10/31/17 21:00 10/31/17 21:15 Temperature Pulse Rate 104 H 104 H 105 H Respiratory Rate 22 22 19 Blood Pressure 96/55 L 101/57 L Pulse Oximetry 10/31/17 21:30 10/31/17 21:45 10/31/17 22:00 Temperature Pulse Rate 107 H 106 H 105 H Respiratory Rate 20 21 21 Blood Pressure 91/52 L 98/56 L 98/58 L Pulse Oximetry 10/31/17 22:15 10/31/17 22:30 10/31/17 23:00 Temperature Pulse Rate 105 H 105 H 104 H Respiratory Rate 21 22 22 Blood Pressure 98/58 L 95/59 L Pulse Oximetry 97 97 11/01/17 00:00 11/01/17 00:26 11/01/17 00:33 Temperature 99.7 F H Pulse Rate 103 H 102 H Respiratory Rate 14 18 14 Blood Pressure 90/49 L Pulse Oximetry 96 96 11/01/17 01:00 11/01/17 02:00 11/01/17 03:00 Temperature Pulse Rate 104 H 107 H 106 H Respiratory Rate 18 17 16 Blood Pressure Pulse Oximetry 96 97 96 11/01/17 04:00 11/01/17 04:08 11/01/17 04:37 Temperature 99.6 F Pulse Rate 107 H 106 H Respiratory Rate 16 16 16 Blood Pressure Pulse Oximetry 97 100 99 11/01/17 05:00 11/01/17 06:00 11/01/17 06:14 Temperature Pulse Rate 113 H 110 H 111 H Respiratory Rate 16 13 13 Blood Pressure 96/52 L 96/52 L Pulse Oximetry 100 98 99 11/01/17 08:10 Temperature Pulse Rate 110 H Respiratory Rate 16 Blood Pressure Pulse Oximetry 100 Intake & Output 10/31/17 11/01/17 11/01/17 18:59 06:59 18:59 Intake Total 3417 / 3417 2967 / 2967 500 / 500 Output Total 850 / 850 250 / 250 Balance 2567 / 2567 2717 / 2717 500 / 500 Weight 128.5 kg 130.5 kg Intake: IV 3417 / 3417 2967 / 2967 500 / 500 LR 1000 mL Inj 1,000 ML @ 150 2000 / 2000 2000 / 2000 mls/hr IV.CONT .Q6H40M [facility] Rx#: [id number] Diprivan 1000 mg/100 ml Inj 1, 200 / 200 100 / 100 000 mg In 100 ml @ 5 MCG/KG/MIN 3.81 mls/hr IV.CONT TITRATE PRN Rx#:[id number] Magnesium Sulfate 1 gm/D5W 100 100 / 100 ml Premix 100 ML @ 100 mls/hr IV.SIG Q1H [facility] Rx#:[id number] Levophed Inj 4 MG In NS Inj 246 500 / 500 250 / 250 250 / 250 ML @ 2 MCG/MIN 7.5 mls/hr IV. SIG TITRATE PRN Rx#:[id number] Zosyn 3.375 GM Premix 50 ML @ 100 / 100 100 / 100 100 mls/hr IV.SIG Q6H [facility] Rx#: [id number] Vancomycin Inj 1,700 MG In NS 517 / 517 517 / 517 Inj 500 ML @ 250 mls/hr IV.SIG Q12H [facility] Rx#:[id number] fentaNYL 10 mcg/mL Premix Drip 250 / 250 2,500 mcg In 250 ml @ 50 MCG/HR 5 mls/hr IV.SIG TITRATE PRN Rx #:[id number] Oral 0 / 0 0 / 0 Output: Urine 150 / 150 0 / 0 Urine Amount (Catheter) 500 / 500 250 / 250 Indwelling Urethral Catheter 500 / 500 250 / 250 Gastric Drainage 200 / 200 Orogastric Tube 200 / 200 Other: # Bowel Movements 0 - Routine HEENT Exam Head: Present: normocephalic, atraumatic - Routine Respiratory Exam Present: patient mechanically ventilated - Routine Cardiovascular Exam Present: tachycardia - Routine Abdominal Exam Present: normoactive bowel sounds, distended, firm - Routine Skin Exam Present: dry, warm - Urinary Catheter Management Indwelling Urethral Catheter Cath placed during this visit: yes Reason for continuing: Hourly intake/output Insertion date: 10/31/17 Insertion time: 10:30 <Abigail Murillo - Last Filed: 11/01/17 10:35> Vital signs: Vital Signs 10/31/17 16:00 10/31/17 16:21 10/31/17 16:23 Temperature 102.5 F H Pulse Rate 120 H 115 H Respiratory Rate 31 H 25 H 29 H Blood Pressure 128/66 Pulse Oximetry 96 10/31/17 16:45 10/31/17 17:00 10/31/17 17:15 Temperature Pulse Rate 106 H 106 H 107 H Respiratory Rate 27 H 25 H 26 H Blood Pressure 97/56 L 97/55 L 102/61 Pulse Oximetry 10/31/17 17:30 10/31/17 17:45 10/31/17 18:00 Temperature Pulse Rate 110 H 103 H 102 H Respiratory Rate 24 26 H 27 H Blood Pressure 107/63 100/59 L 100/59 L Pulse Oximetry 10/31/17 18:15 10/31/17 18:30 10/31/17 18:45 Temperature Pulse Rate 102 H 101 H 105 H Respiratory Rate 26 H 28 H 27 H Blood Pressure 98/56 L 96/53 L 96/59 L Pulse Oximetry 10/31/17 19:00 10/31/17 19:15 10/31/17 19:30 Temperature Pulse Rate 105 H 104 H 104 H Respiratory Rate 25 H 26 H 25 H Blood Pressure 98/59 L 100/58 L 101/56 L Pulse Oximetry 10/31/17 19:45 10/31/17 20:00 10/31/17 20:15 Temperature 101.0 F H Pulse Rate 104 H 104 H 104 H Respiratory Rate 22 25 H 25 H Blood Pressure 103/59 L 97/55 L 97/55 L Pulse Oximetry 10/31/17 20:30 10/31/17 20:45 10/31/17 20:50 Temperature Pulse Rate 103 H 104 H 104 H Respiratory Rate 24 21 22 Blood Pressure 99/56 L 102/55 L Pulse Oximetry 10/31/17 21:00 10/31/17 21:15 10/31/17 21:30 Temperature Pulse Rate 104 H 105 H 107 H Respiratory Rate 22 19 20 Blood Pressure 96/55 L 101/57 L 91/52 L Pulse Oximetry 10/31/17 21:45 10/31/17 22:00 10/31/17 22:15 Temperature Pulse Rate 106 H 105 H 105 H Respiratory Rate 21 21 21 Blood Pressure 98/56 L 98/58 L 98/58 L Pulse Oximetry 10/31/17 22:30 10/31/17 23:00 11/01/17 00:00 Temperature 99.7 F H Pulse Rate 105 H 104 H 103 H Respiratory Rate 22 22 14 Blood Pressure 95/59 L 90/49 L Pulse Oximetry 97 97 96 11/01/17 00:26 11/01/17 00:33 11/01/17 01:00 Temperature Pulse Rate 102 H 104 H Respiratory Rate 18 14 18 Blood Pressure Pulse Oximetry 96 96 11/01/17 02:00 11/01/17 03:00 11/01/17 04:00 Temperature 99.6 F Pulse Rate 107 H 106 H 107 H Respiratory Rate 17 16 16 Blood Pressure Pulse Oximetry 97 96 97 11/01/17 04:08 11/01/17 04:37 11/01/17 05:00 Temperature Pulse Rate 106 H 113 H Respiratory Rate 16 16 16 Blood Pressure Pulse Oximetry 100 99 100 11/01/17 06:00 11/01/17 06:14 11/01/17 08:00 Temperature 101 F H Pulse Rate 110 H 111 H 118 H Respiratory Rate 13 13 Blood Pressure 96/52 L 96/52 L Pulse Oximetry 98 99 99 11/01/17 08:10 11/01/17 11:45 Temperature Pulse Rate 110 H 117 H Respiratory Rate 16 16 Blood Pressure Pulse Oximetry 100 Intake & Output 10/31/17 11/01/17 11/01/17 18:59 06:59 18:59 Intake Total 3417 / 3417 2967 / 2967 500 / 500 Output Total 850 / 850 250 / 250 Balance 2567 / 2567 2717 / 2717 500 / 500 Weight 128.5 kg 130.5 kg Intake: IV 3417 / 3417 2967 / 2967 500 / 500 LR 1000 mL Inj 1,000 ML @ 150 2000 / 2000 2000 / 2000 mls/hr IV.CONT .Q6H40M [facility] Rx#: [id number] Diprivan 1000 mg/100 ml Inj 1, 200 / 200 100 / 100 000 mg In 100 ml @ 5 MCG/KG/MIN 3.81 mls/hr IV.CONT TITRATE PRN Rx#:[id number] Magnesium Sulfate 1 gm/D5W 100 100 / 100 ml Premix 100 ML @ 100 mls/hr IV.SIG Q1H [facility] Rx#:[id number] Levophed Inj 4 MG In NS Inj 246 500 / 500 250 / 250 250 / 250 ML @ 2 MCG/MIN 7.5 mls/hr IV. SIG TITRATE PRN Rx#:[id number] Zosyn 3.375 GM Premix 50 ML @ 100 / 100 100 / 100 100 mls/hr IV.SIG Q6H [facility] Rx#: [id number] Vancomycin Inj 1,700 MG In NS 517 / 517 517 / 517 Inj 500 ML @ 250 mls/hr IV.SIG Q12H [facility] Rx#:[id number] fentaNYL 10 mcg/mL Premix Drip 250 / 250 2,500 mcg In 250 ml @ 50 MCG/HR 5 mls/hr IV.SIG TITRATE PRN Rx #:[id number] Oral 0 / 0 0 / 0 Output: Urine 150 / 150 0 / 0 Urine Amount (Catheter) 500 / 500 250 / 250 Indwelling Urethral Catheter 500 / 500 250 / 250 Gastric Drainage 200 / 200 Orogastric Tube 200 / 200 Other: # Bowel Movements 0 - Urinary Catheter Management Indwelling Urethral Catheter Cath placed during this visit: no <Michael Cordero - Last Filed: 11/01/17 15:26> Results - Labs CBC & Chem 7: 11/01/17 04:40 11/01/17 04:40 Laboratory Results - last 24 hr 10/31/17 10/31/17 10/31/17 04:05 12:04 12:04 WBC RBC Hgb Hct MCV MCH MCHC RDW Plt Count MPV Prelim Diff (Auto) Neut % (Auto) Lymph % (Auto) [place] % (Auto) Eos % (Auto) Baso % (Auto) Neut # (Auto) Lymph # (Auto) [place] # (Auto) Eos # (Auto) Baso # (Auto) WBC Differential Seg Neuts % (Manual) Band Neuts % (Manual) Lymphocytes % (Manual) Monocytes % (Manual) Metamyelocytes % (Man) Abs Neuts (Manual) Differential Comment Toxic Vacuolation Dohle Bodies Platelet Estimate Platelet Morphology PT INR APTT Fibrinogen Puncture Site Patient Temperature O2 Saturation ABG pH ABG pCO2 ABG pO2 ABG HCO3 ABG O2 Content ABG Base Excess ABG Methemoglobin Hemoglobin Carboxyhemoglobin Critical Value Sodium Potassium 5.2 H Chloride Carbon Dioxide Anion Gap BUN Creatinine Estimated GFR POC Glucose Random Glucose Hemoglobin A1c 5.4 Lactic Acid Calcium Prot Corrected Calcium Phosphorus Magnesium Total Bilirubin AST ALT Alkaline Phosphatase Ammonia Total Creatine Kinase 586 H CK-MB (CK-2) 2.1 CK-MB (CK-2) % 0.4 Troponin I Total Protein Albumin Ur Random Creatinine Ur Random Sodium Vancomycin Trough Hepatitis A IgM Ab Hep Bs Antigen Hep B Core IgM Ab Hep C IgG Ab 10/31/17 10/31/17 10/31/17 12:04 13:15 16:30 WBC RBC Hgb Hct MCV MCH MCHC RDW Plt Count MPV Prelim Diff (Auto) Neut % (Auto) Lymph % (Auto) [place] % (Auto) Eos % (Auto) Baso % (Auto) Neut # (Auto) Lymph # (Auto) [place] # (Auto) Eos # (Auto) Baso # (Auto) WBC Differential Seg Neuts % (Manual) Band Neuts % (Manual) Lymphocytes % (Manual) Monocytes % (Manual) Metamyelocytes % (Man) Abs Neuts (Manual) Differential Comment Toxic Vacuolation Dohle Bodies Platelet Estimate Platelet Morphology PT INR APTT Fibrinogen Puncture Site Patient Temperature O2 Saturation ABG pH ABG pCO2 ABG pO2 ABG HCO3 ABG O2 Content ABG Base Excess ABG Methemoglobin Hemoglobin Carboxyhemoglobin Critical Value Sodium Potassium Chloride Carbon Dioxide Anion Gap BUN Creatinine Estimated GFR POC Glucose 148 H Random Glucose Hemoglobin A1c Lactic Acid 5.3 H* Calcium Prot Corrected Calcium Phosphorus Magnesium Total Bilirubin AST ALT Alkaline Phosphatase Ammonia Total Creatine Kinase CK-MB (CK-2) CK-MB (CK-2) % Troponin I Total Protein Albumin Ur Random Creatinine 287 Ur Random Sodium 8 Vancomycin Trough Hepatitis A IgM Ab Hep Bs Antigen Hep B Core IgM Ab Hep C IgG Ab 10/31/17 10/31/17 10/31/17 17:34 18:20 18:20 WBC RBC Hgb Hct MCV MCH MCHC RDW Plt Count MPV Prelim Diff (Auto) Neut % (Auto) Lymph % (Auto) [place]le % (Auto) Eos % (Auto) Baso % (Auto) Neut # (Auto) Lymph # (Auto) [place] # (Auto) Eos # (Auto) Baso # (Auto) WBC Differential Seg Neuts % (Manual) Band Neuts % (Manual) Lymphocytes % (Manual) Monocytes % (Manual) Metamyelocytes % (Man) Abs Neuts (Manual) Differential Comment Toxic Vacuolation Dohle Bodies Platelet Estimate Platelet Morphology PT INR APTT Fibrinogen Puncture Site Patient Temperature O2 Saturation ABG pH ABG pCO2 ABG pO2 ABG HCO3 ABG O2 Content ABG Base Excess ABG Methemoglobin Hemoglobin Carboxyhemoglobin Critical Value Sodium Potassium Chloride Carbon Dioxide Anion Gap BUN Creatinine Estimated GFR POC Glucose 94 Random Glucose Hemoglobin A1c Lactic Acid 4.3 H* Calcium Prot Corrected Calcium Phosphorus Magnesium Total Bilirubin AST ALT Alkaline Phosphatase Ammonia Total Creatine Kinase CK-MB (CK-2) CK-MB (CK-2) % Troponin I Total Protein Albumin Ur Random Creatinine Ur Random Sodium Vancomycin Trough Hepatitis A IgM Ab Nonreactive Hep Bs Antigen Nonreactive Hep B Core IgM Ab Nonreactive Hep C IgG Ab Nonreactive 11/01/17 11/01/17 11/01/17 00:36 04:40 04:40 WBC 19.2 H RBC 3.67 L Hgb 12.6 L Hct 38.3 L MCV 104.4 H MCH 34.4 H MCHC 32.9 RDW 15.3 Plt Count 56 L MPV 9.5 Prelim Diff (Auto) Slide review pending Neut % (Auto) 90.0 H Lymph % (Auto) 5.5 L [place]eadle % (Auto) 3.7 Eos % (Auto) 0.3 Baso % (Auto) 0.5 Neut # (Auto) 17.3 H Lymph # (Auto) 1.1 B[place]le # (Auto) 0.7 Eos # (Auto) 0.1 Baso # (Auto) 0.1 WBC Differential Manual diff final Seg Neuts % (Manual) 65 Band Neuts % (Manual) 25 H Lymphocytes % (Manual) 3 L Monocytes % (Manual) 3 Metamyelocytes % (Man) 4 H Abs Neuts (Manual) 18.0 H Differential Comment . Toxic Vacuolation Present H Dohle Bodies Present H Platelet Estimate Low L Platelet Morphology Normal PT INR APTT Fibrinogen Puncture Site Patient Temperature O2 Saturation ABG pH ABG pCO2 ABG pO2 ABG HCO3 ABG O2 Content ABG Base Excess ABG Methemoglobin Hemoglobin Carboxyhemoglobin Critical Value Sodium Potassium Chloride Carbon Dioxide Anion Gap BUN Creatinine Estimated GFR POC Glucose 99 Random Glucose Hemoglobin A1c Lactic Acid 6.0 H* Calcium Prot Corrected Calcium Phosphorus Magnesium Total Bilirubin AST ALT Alkaline Phosphatase Ammonia Total Creatine Kinase CK-MB (CK-2) CK-MB (CK-2) % Troponin I Total Protein Albumin Ur Random Creatinine Ur Random Sodium Vancomycin Trough Hepatitis A IgM Ab Hep Bs Antigen Hep B Core IgM Ab Hep C IgG Ab 11/01/17 11/01/17 11/01/17 04:40 04:40 04:40 WBC RBC Hgb Hct MCV MCH MCHC RDW Plt Count MPV Prelim Diff (Auto) Neut % (Auto) Lymph % (Auto) [place]le % (Auto) Eos % (Auto) Baso % (Auto) Neut # (Auto) Lymph # (Auto) [place] # (Auto) Eos # (Auto) Baso # (Auto) WBC Differential Seg Neuts % (Manual) Band Neuts % (Manual) Lymphocytes % (Manual) Monocytes % (Manual) Metamyelocytes % (Man) Abs Neuts (Manual) Differential Comment Toxic Vacuolation Dohle Bodies Platelet Estimate Platelet Morphology PT 20.7 H INR 2.0 APTT 67.9 H D Fibrinogen 209 L Puncture Site Patient Temperature O2 Saturation ABG pH ABG pCO2 ABG pO2 ABG HCO3 ABG O2 Content ABG Base Excess ABG Methemoglobin Hemoglobin Carboxyhemoglobin Critical Value Sodium 137 Potassium 5.1 Chloride 102 Carbon Dioxide 23.7 Anion Gap 11 BUN 26 H Creatinine 2.89 H Estimated GFR 23 L POC Glucose Random Glucose 105 Hemoglobin A1c Lactic Acid Calcium 7.2 L* Prot Corrected Calcium 7.3 L* Phosphorus 5.0 H D Magnesium 1.6 Total Bilirubin 8.9 H AST 190 H ALT 37 Alkaline Phosphatase 100 Ammonia 57 H Total Creatine Kinase 882 H CK-MB (CK-2) 2.1 CK-MB (CK-2) % 0.2 Troponin I 0.73 H* Total Protein 7.0 Albumin 2.2 L Ur Random Creatinine Ur Random Sodium Vancomycin Trough 30.6 H Hepatitis A IgM Ab Hep Bs Antigen Hep B Core IgM Ab Hep C IgG Ab 11/01/17 11/01/17 04:40 05:47 WBC RBC Hgb Hct MCV MCH MCHC RDW Plt Count MPV Prelim Diff (Auto) Neut % (Auto) Lymph % (Auto) [place] % (Auto) Eos % (Auto) Baso % (Auto) Neut # (Auto) Lymph # (Auto) [place] # (Auto) Eos # (Auto) Baso # (Auto) WBC Differential Seg Neuts % (Manual) Band Neuts % (Manual) Lymphocytes % (Manual) Monocytes % (Manual) Metamyelocytes % (Man) Abs Neuts (Manual) Differential Comment Toxic Vacuolation Dohle Bodies Platelet Estimate Platelet Morphology PT INR APTT Fibrinogen Puncture Site Not Reportable Patient Temperature 98.6 O2 Saturation 96 ABG pH 7.27 L* ABG pCO2 45 H ABG pO2 136 H ABG HCO3 20 L ABG O2 Content 16.9 ABG Base Excess -5.5 L ABG Methemoglobin 1.3 Hemoglobin 12.3 Carboxyhemoglobin 0.5 Critical Value Yes Sodium Potassium Chloride Carbon Dioxide Anion Gap BUN Creatinine Estimated GFR POC Glucose Random Glucose Hemoglobin A1c Lactic Acid Calcium Prot Corrected Calcium Phosphorus Magnesium Total Bilirubin AST ALT Alkaline Phosphatase Ammonia Total Creatine Kinase CK-MB (CK-2) CK-MB (CK-2) % Troponin I Total Protein Albumin Ur Random Creatinine Ur Random Sodium Vancomycin Trough Cancelled Hepatitis A IgM Ab Hep Bs Antigen Hep B Core IgM Ab Hep C IgG Ab Microbiology 10/30/17 17:50 Blood - Peripheral Aerobic Blood Culture - Preliminary Group A beta (Strep pyogenes) 10/30/17 17:50 Blood - Peripheral Anaerobic Blood Culture - Preliminary gram positive cocci 10/30/17 17:50 Blood - Peripheral Aerobic Blood Culture - Preliminary gram positive cocci 10/30/17 17:50 Blood - Peripheral Anaerobic Blood Culture - Preliminary gram positive cocci 10/31/17 01:10 Urine - Catheterized Urine Streptococcus pneumoniae Antigen ( M - Final Presumptive negative for streptococcus pneumoniae antigen, suggesting no current or recent infection. Infection due to Streptococcus pneumoniae cannot be ruled out since the antigen present in the sample may be below the detection limit of the test. 10/31/17 01:10 Urine - Catheterized Urine Legionella Antigen - Final Presumptive negative for Legionella pneumophila serogroup 1 antigen in urine, suggesting no recent or recurrent infection. Infection due to Legionella cannot be ruled out since other serogroups and species may cause disease, antigen may not be present in urine in early infection, and the level of antigen present in the urine may be below the detection limit of the test. 10/31/17 04:55 Sputum - Endotracheal Gram Stain - Final - Imaging Impressions Foot MRI 10/31/17 00:00 CONCLUSION: 1. Lumbar Spine MRI 10/31/17 00:00 CONCLUSION: Extruded disc fragment with a donor site at L4-L5 lying posterior to the L4 vertebral body severe right-sided and moderate left-sided foraminal narrowing. There is no evidence of abscess. Sacrum/Coccyx MRI 10/31/17 00:00 CONCLUSION: 1. Negative MRI of the sacrum Chest X-Ray 11/01/17 06:00 CONCLUSION: Mid inspiratory study with crowding of the lung vasculature and perihilar and bibasilar opacities which appear mildly increased. <Abigail Murillo - Last Filed: 11/01/17 10:35> - Labs CBC & Chem 7: 11/01/17 04:40 11/01/17 04:40 Laboratory Results - last 24 hr 10/31/17 10/31/17 10/31/17 04:05 16:30 17:34 WBC RBC Hgb Hct MCV MCH MCHC RDW Plt Count MPV Prelim Diff (Auto) Neut % (Auto) Lymph % (Auto) [place] % (Auto) Eos % (Auto) Baso % (Auto) Neut # (Auto) Lymph # (Auto) [place] # (Auto) Eos # (Auto) Baso # (Auto) WBC Differential Seg Neuts % (Manual) Band Neuts % (Manual) Lymphocytes % (Manual) Monocytes % (Manual) Metamyelocytes % (Man) Abs Neuts (Manual) Differential Comment Toxic Vacuolation Dohle Bodies Platelet Estimate Platelet Morphology PT INR APTT Fibrinogen Puncture Site Patient Temperature O2 Saturation ABG pH ABG pCO2 ABG pO2 ABG HCO3 ABG O2 Content ABG Base Excess ABG Methemoglobin Hemoglobin Carboxyhemoglobin Critical Value Sodium Potassium Chloride Carbon Dioxide Anion Gap BUN Creatinine Estimated GFR POC Glucose 94 Random Glucose Hemoglobin A1c 5.4 Lactic Acid Calcium Prot Corrected Calcium Phosphorus Magnesium Total Bilirubin AST ALT Alkaline Phosphatase Ammonia Total Creatine Kinase CK-MB (CK-2) CK-MB (CK-2) % Troponin I Total Protein Albumin Urine Eosinophils Ur Random Creatinine 287 Ur Random Sodium 8 Vancomycin Trough Hepatitis A IgM Ab Hep Bs Antigen Hep B Core IgM Ab Hep C IgG Ab 10/31/17 10/31/17 11/01/17 18:20 18:20 00:36 WBC RBC Hgb Hct MCV MCH MCHC RDW Plt Count MPV Prelim Diff (Auto) Neut % (Auto) Lymph % (Auto) [place] % (Auto) Eos % (Auto) Baso % (Auto) Neut # (Auto) Lymph # (Auto) [place] # (Auto) Eos # (Auto) Baso # (Auto) WBC Differential Seg Neuts % (Manual) Band Neuts % (Manual) Lymphocytes % (Manual) Monocytes % (Manual) Metamyelocytes % (Man) Abs Neuts (Manual) Differential Comment Toxic Vacuolation Dohle Bodies Platelet Estimate Platelet Morphology PT INR APTT Fibrinogen Puncture Site Patient Temperature O2 Saturation ABG pH ABG pCO2 ABG pO2 ABG HCO3 ABG O2 Content ABG Base Excess ABG Methemoglobin Hemoglobin Carboxyhemoglobin Critical Value Sodium Potassium Chloride Carbon Dioxide Anion Gap BUN Creatinine Estimated GFR POC Glucose 99 Random Glucose Hemoglobin A1c Lactic Acid 4.3 H* Calcium Prot Corrected Calcium Phosphorus Magnesium Total Bilirubin AST ALT Alkaline Phosphatase Ammonia Total Creatine Kinase CK-MB (CK-2) CK-MB (CK-2) % Troponin I Total Protein Albumin Urine Eosinophils Ur Random Creatinine Ur Random Sodium Vancomycin Trough Hepatitis A IgM Ab Nonreactive Hep Bs Antigen Nonreactive Hep B Core IgM Ab Nonreactive Hep C IgG Ab Nonreactive 11/01/17 11/01/17 11/01/17 04:40 04:40 04:40 WBC 19.2 H RBC 3.67 L Hgb 12.6 L Hct 38.3 L MCV 104.4 H MCH 34.4 H MCHC 32.9 RDW 15.3 Plt Count 56 L MPV 9.5 Prelim Diff (Auto) Slide review pending Neut % (Auto) 90.0 H Lymph % (Auto) 5.5 L [place] % (Auto) 3.7 Eos % (Auto) 0.3 Baso % (Auto) 0.5 Neut # (Auto) 17.3 H Lymph # (Auto) 1.1 [place] # (Auto) 0.7 Eos # (Auto) 0.1 Baso # (Auto) 0.1 WBC Differential Manual diff final Seg Neuts % (Manual) 65 Band Neuts % (Manual) 25 H Lymphocytes % (Manual) 3 L Monocytes % (Manual) 3 Metamyelocytes % (Man) 4 H Abs Neuts (Manual) 18.0 H Differential Comment . Toxic Vacuolation Present H Dohle Bodies Present H Platelet Estimate Low L Platelet Morphology Normal PT 20.7 H INR 2.0 APTT 67.9 H D Fibrinogen 209 L Puncture Site Patient Temperature O2 Saturation ABG pH ABG pCO2 ABG pO2 ABG HCO3 ABG O2 Content ABG Base Excess ABG Methemoglobin Hemoglobin Carboxyhemoglobin Critical Value Sodium Potassium Chloride Carbon Dioxide Anion Gap BUN Creatinine Estimated GFR POC Glucose Random Glucose Hemoglobin A1c Lactic Acid 6.0 H* Calcium Prot Corrected Calcium Phosphorus Magnesium Total Bilirubin AST ALT Alkaline Phosphatase Ammonia Total Creatine Kinase CK-MB (CK-2) CK-MB (CK-2) % Troponin I Total Protein Albumin Urine Eosinophils Ur Random Creatinine Ur Random Sodium Vancomycin Trough Hepatitis A IgM Ab Hep Bs Antigen Hep B Core IgM Ab Hep C IgG Ab 11/01/17 11/01/17 11/01/17 04:40 04:40 04:40 WBC RBC Hgb Hct MCV MCH MCHC RDW Plt Count MPV Prelim Diff (Auto) Neut % (Auto) Lymph % (Auto) [place] % (Auto) Eos % (Auto) Baso % (Auto) Neut # (Auto) Lymph # (Auto) [place] # (Auto) Eos # (Auto) Baso # (Auto) WBC Differential Seg Neuts % (Manual) Band Neuts % (Manual) Lymphocytes % (Manual) Monocytes % (Manual) Metamyelocytes % (Man) Abs Neuts (Manual) Differential Comment Toxic Vacuolation Dohle Bodies Platelet Estimate Platelet Morphology PT INR APTT Fibrinogen Puncture Site Patient Temperature O2 Saturation ABG pH ABG pCO2 ABG pO2 ABG HCO3 ABG O2 Content ABG Base Excess ABG Methemoglobin Hemoglobin Carboxyhemoglobin Critical Value Sodium 137 Potassium 5.1 Chloride 102 Carbon Dioxide 23.7 Anion Gap 11 BUN 26 H Creatinine 2.89 H Estimated GFR 23 L POC Glucose Random Glucose 105 Hemoglobin A1c Lactic Acid Calcium 7.2 L* Prot Corrected Calcium 7.3 L* Phosphorus 5.0 H D Magnesium 1.6 Total Bilirubin 8.9 H AST 190 H ALT 37 Alkaline Phosphatase 100 Ammonia 57 H Total Creatine Kinase 882 H CK-MB (CK-2) 2.1 CK-MB (CK-2) % 0.2 Troponin I 0.73 H* Total Protein 7.0 Albumin 2.2 L Urine Eosinophils Ur Random Creatinine Ur Random Sodium Vancomycin Trough 30.6 H Cancelled Hepatitis A IgM Ab Hep Bs Antigen Hep B Core IgM Ab Hep C IgG Ab 11/01/17 11/01/17 11/01/17 05:47 12:34 12:45 WBC RBC Hgb Hct MCV MCH MCHC RDW Plt Count MPV Prelim Diff (Auto) Neut % (Auto) Lymph % (Auto) [place] % (Auto) Eos % (Auto) Baso % (Auto) Neut # (Auto) Lymph # (Auto) [place] # (Auto) Eos # (Auto) Baso # (Auto) WBC Differential Seg Neuts % (Manual) Band Neuts % (Manual) Lymphocytes % (Manual) Monocytes % (Manual) Metamyelocytes % (Man) Abs Neuts (Manual) Differential Comment Toxic Vacuolation Dohle Bodies Platelet Estimate Platelet Morphology PT INR APTT Fibrinogen Puncture Site Not Reportable Patient Temperature 98.6 O2 Saturation 96 ABG pH 7.27 L* ABG pCO2 45 H ABG pO2 136 H ABG HCO3 20 L ABG O2 Content 16.9 ABG Base Excess -5.5 L ABG Methemoglobin 1.3 Hemoglobin 12.3 Carboxyhemoglobin 0.5 Critical Value Yes Sodium Potassium Chloride Carbon Dioxide Anion Gap BUN Creatinine Estimated GFR POC Glucose 122 H Random Glucose Hemoglobin A1c Lactic Acid Calcium Prot Corrected Calcium Phosphorus Magnesium Total Bilirubin AST ALT Alkaline Phosphatase Ammonia Total Creatine Kinase CK-MB (CK-2) CK-MB (CK-2) % Troponin I Total Protein Albumin Urine Eosinophils None seen Ur Random Creatinine Ur Random Sodium Vancomycin Trough Hepatitis A IgM Ab Hep Bs Antigen Hep B Core IgM Ab Hep C IgG Ab 11/01/17 11/01/17 12:45 12:45 WBC RBC Hgb Hct MCV MCH MCHC RDW Plt Count MPV Prelim Diff (Auto) Neut % (Auto) Lymph % (Auto) Beadle % (Auto) Eos % (Auto) Baso % (Auto) Neut # (Auto) Lymph # (Auto) Beadle # (Auto) Eos # (Auto) Baso # (Auto) WBC Differential Seg Neuts % (Manual) Band Neuts % (Manual) Lymphocytes % (Manual) Monocytes % (Manual) Metamyelocytes % (Man) Abs Neuts (Manual) Differential Comment Toxic Vacuolation Dohle Bodies Platelet Estimate Platelet Morphology PT INR APTT Fibrinogen Puncture Site Patient Temperature O2 Saturation ABG pH ABG pCO2 ABG pO2 ABG HCO3 ABG O2 Content ABG Base Excess ABG Methemoglobin Hemoglobin Carboxyhemoglobin Critical Value Sodium Potassium Chloride Carbon Dioxide Anion Gap BUN Creatinine Estimated GFR POC Glucose Random Glucose Hemoglobin A1c Lactic Acid 5.2 H* Cancelled Calcium Prot Corrected Calcium Phosphorus Magnesium Total Bilirubin AST ALT Alkaline Phosphatase Ammonia Total Creatine Kinase CK-MB (CK-2) CK-MB (CK-2) % Troponin I Total Protein Albumin Urine Eosinophils Ur Random Creatinine Ur Random Sodium Vancomycin Trough Hepatitis A IgM Ab Hep Bs Antigen Hep B Core IgM Ab Hep C IgG Ab Microbiology 10/30/17 17:50 Blood - Peripheral Aerobic Blood Culture - Preliminary Group A beta (Strep pyogenes) 10/30/17 17:50 Blood - Peripheral Anaerobic Blood Culture - Preliminary Group A beta (Strep pyogenes) 10/30/17 17:50 Blood - Peripheral Aerobic Blood Culture - Preliminary Group A beta (Strep pyogenes) Staphylococcus aureus 10/30/17 17:50 Blood - Peripheral Anaerobic Blood Culture - Preliminary Group A beta (Strep pyogenes) 10/31/17 04:55 Sputum - Endotracheal Gram Stain - Final 10/31/17 04:55 Sputum - Endotracheal Sputum Culture - Preliminary Immature growth - reincubate - Imaging Impressions Foot MRI 10/31/17 00:00 CONCLUSION: 1. Lumbar Spine MRI 10/31/17 00:00 CONCLUSION: Extruded disc fragment with a donor site at L4-L5 lying posterior to the L4 vertebral body severe right-sided and moderate left-sided foraminal narrowing. There is no evidence of abscess. Sacrum/Coccyx MRI 10/31/17 00:00 CONCLUSION: 1. Negative MRI of the sacrum Chest X-Ray 11/01/17 06:00 CONCLUSION: Mid inspiratory study with crowding of the lung vasculature and perihilar and bibasilar opacities which appear mildly increased. Abdomen X-Ray 11/01/17 10:38 CONCLUSION: Nonobstructive bowel gas pattern. <Michael Cordero - Last Filed: 11/01/17 15:26> Assessment and Plan - Plan Assessment: - Colitis As stated in HPI, pt currently sedated and intubated, however was responsive on arrival and therefore Dr. Abdullahi was able to obtain some history. Pt did report complaints of diarrhea, unsure how much or for how long. Did deny hematochezia and melena. Denied any abdominal pain and was not tender on exam. CT abdomen and pelvis W IV contrast --> Mild colitis predominantly on the right side with trace free fluid and some inflammatory changes on the right. No bowel obstruction. No free air. Multiple layering gallstones. Subsegmental basilar airspace consolidation in the lungs. Fatty liver enlarged to 25 cm. - ETOH abuse- Pt reportedly had been binge drinking since Monday Labs consistent with ETOH- DF-[id number] Abdullahi, will hold on steroids given septic shock, Pentoxifylline not an option-pt has OG and this can not be crushed (10/31) AST-173 ALT-36 T bili-6.5 Alk phos-184 ? cirrhosis- Thrombocytopenia (platelets-70) Coagulopathy (INR 2.1) Hypoalbuminemia (albumin-2.5) Ammonia-44 - Septic shock - leukocytosis, elevated lactic acid, febrile- Pt requiring pressors at this time Unknown source. cellulitis on feet vs PNA vs colitis (11/01) Pt remains sedated and mechanically ventilated via ETT. OG to LIWS with brown colored output. Per RN no BM, therefore stools studies still pending. Abdomen appears more distended and firm today. Ammonia elevated, on Lactulose, will add Xifaxan. Plan: STAT KUB Stool studies pending Agree with Zosyn for possible infectious cause of colitis ? need for flex sig depending on course Avoid hepatotoxins No steroids at this time because of septic shock Can not do Pentoxifylline because this can not be crushed and pt has OG Lactulose Monitor labs Alcohol withdraw protocol Continue with supportive care Further recommendations to follow Pt has been seen and examined by myself and Dr. Cordero and this note is written on his behalf <Abigail Murillo - Last Filed: 11/01/17 10:35> - Plan Seen and examined, no bleeding. Kub -ve. Stool studies-p. Repeat ct vs. sigmoidoscopy - Attending Attestation The exam, history, and the medical decision-making described in the above note were completed with the assistance of the mid-level provider. I reviewed and agree with the findings presented. I attest that I had a [id number] encounter with the patient on the same day, and personally performed and documented my assessment and findings in the medical record. <Michael Cordero - Last Filed: 11/01/17 15:26>
--- NOTE | 2017-11-01 10:57 | P.CONNP ---
<KayySharon - Last Filed: 11/01/17 10:26> History of Present Illness Service: Nephrology Consult date: 11/01/17 Requesting Physician: Ruma Ramirez Reason for Consult: Acute kidney injury Primary Care Provider: UNKNOWN Chief Complaint: Fever, back pain History of Present Illness: Patient is a 52-year-old male with a past medical history of alcohol dependence. Patient is intubated on sedation so history is obtained from chart. He presented to the emergency room after a friend found him in the hotel room with fever and ill appearance after episode of binge drinking. Patient has multiple bruises and wounds on foot and has been falling. Nephrology is consulted for acute kidney injury with a creatinine initially at 1.33->1.95 ->2.89 today. Urinary output at 750ml. He is in septic shock, on levophed for blood pressure support and has been febrile. Anderson catheter to SD and IVF are infusing. CT of abdomen with unremarkable kidneys. Review of Systems unobtainable due to endotracheal tube PMFSH - History History Provided By: Medical Record - Medical History Medical History: Medical History (Last Reviewed 11/01/17 @ 08:35 by Kika Jackson) EtOH dependence - Surgical History Surgical History: Surgical History (Last Reviewed 11/01/17 @ 08:35 by Kika Jackson) No pertinent past surgical history - Family History Family History: Family History (Last Updated 10/31/17 @ 08:48 by Terra Abdullahi MD) Uncle EtOH dependence Mother Breast cancer Father Prostate cancer Leukemia - Tobacco History Tobacco Use In Past 30 Days: Yes Smoking Status: Current every day smoker Tobacco Type: Smokeless Tobacco - Alcohol History How Often Do You Have a Drink Containing Alcohol: 4 or more times a week - Substance Use History Substance History: Unable to Obtain - Travel History Recent Travel in the [place] Within the Last 8 Weeks: No Recent Travel Out of the Country Within the Last 8 Weeks: No - Immunization History Tetanus Immunization: Unsure Hx Influenza Vaccine This Season: No Medications and Allergies Allergies Allergy/AdvReac Type Severity Reaction Status Date / Time No Known Allergies Allergy Unverified 10/30/17 17:35 Home Medications Medication Instructions Recorded Confirmed Type No Known Home Medications 10/30/17 10/30/17 History Active Medications: Active Medications Acetaminophen (Tylenol Liq) 650 mg PO Q8H PRN PRN Reason: FEVER Last Admin: 11/01/17 10:18 Dose: 650 mg Al Hydroxide/Mg Hydroxide (Milk Of Magnbrittnee Liq) 30 ml PO Q12H PRN PRN Reason: Mild Constipation Albuterol (Duoneb Neb ([place])) 1 ampul NEB Q4HR NEB [facility] Last Admin: 11/01/17 08:14 Dose: 1 ampul Albuterol (Albuterol Neb (Prn)) 2.5 mg NEB Q2HR NEB PRN PRN Reason: DYSPNEA Artificial Tears (Genteal Severe Dry Eye Relief 0.3% Opth Gel) 1 drops EACH EYE BID [facility] Last Admin: 11/01/17 08:24 Dose: 1 drops Bisacodyl (Dulcolax Supp) 10 mg RECTAL DAILY PRN PRN Reason: SEVERE CONSITIPATION Chlorhexidine Gluconate (Chlorhexidine 2% Cloth) 3 pack TOPICAL DAILY@0400 [facility] Stop: 11/05/17 03:59 Last Admin: 11/01/17 05:17 Dose: 3 pack Chlorhexidine Gluconate (Chlorhexidine 2% Cloth) 3 pack TOPICAL DAILY@0400 PRN PRN Reason: Extra cloth needed Stop: 11/05/17 03:59 Chlorhexidine Gluconate (Peridex 0.12% Oral Kit) 15 ml OROPHARYNG BID@0800, 1999 [facility] Last Admin: 11/01/17 08:25 Dose: 15 ml Dextrose (D50w Vial) 50 ml IV.PUSH UNSCH PRN PRN Reason: PER HYPOGLYCEMIA PROTOCOL Glucagon (Glucagon Inj) 1 mg OTHER PRN PRN PRN Reason: for Hypoglycemia Protocol Hydrocortisone Sodium Succinate (Solucortef Inj) 50 mg IV.PUSH Q6H [facility] Last Admin: 11/01/17 10:18 Dose: 50 mg Sodium Chloride (Ns Inj) 1,000 mls @ 0 mls/hr IV.SIG .Q0M [facility] Last Infusion: 10/30/17 19:36 Dose: Infused Sodium Chloride (Ns Inj) 1,000 mls @ 0 mls/hr IV.SIG .Q0M [facility] Last Infusion: 10/30/17 21:32 Dose: Infused Lactated Ringer's (Lr 1000 Ml Inj) 1,000 mls @ 150 mls/hr IV.CONT .Q6H40M [facility] Last Admin: 11/01/17 10:05 Dose: 150 mls/hr Pharmacy Profile Note (Vancomycin Consult Pharmacy) 0 mls @ 0 mls/hr OTHER UNSCH [facility] Piperacillin/Tazobactam/Dextrose (Zosyn 3.375 Gm Premix) 50 mls @ 100 mls/hr IV.SIG Q6H [facility] Last Admin: 11/01/17 08:26 Dose: 100 mls/hr Multivitamins 10 ml/ Thiamine HCl 100 mg/ Folic Acid 1 mg/Sodium Chloride 511.2 mls @ 127.8 mls/hr IV.SIG Q24H [facility] Stop: 11/03/17 22:59 Last Admin: 10/31/17 23:09 Dose: 127.8 mls/hr Vancomycin HCl 1,700 mg/ (Sodium Chloride) 517 mls @ 250 mls/hr IV.SIG Q12H [facility] Last Admin: 11/01/17 05:17 Dose: 250 mls/hr Propofol (Diprivan 1000 Mg/100 Ml Inj) 1,000 mg in 100 mls @ 3.81 mls/hr IV.CONT TITRATE PRN; Protocol PRN Reason: Per Protocol Last Admin: 11/01/17 03:06 Dose: 5 mcg/kg/min, 3.81 mls/hr Norepinephrine Bitartrate 4 mg (/ Sodium Chloride) 250 mls @ 7.5 mls/hr IV.SIG TITRATE PRN; Protocol PRN Reason: Per Protocol Last Admin: 11/01/17 09:57 Dose: 9 mcg/min, 33.75 mls/hr Fentanyl (Fentanyl 10 Mcg/Ml Premix Drip) 2,500 mcg in 250 mls @ 5 mls/hr IV.SIG TITRATE PRN; Protocol PRN Reason: Per Protocol Last Admin: 11/01/17 08:46 Dose: 250 mcg/hr, 25 mls/hr Calcium Gluconate 1 gm/ (Dextrose) 110 mls @ 110 mls/hr IV.SIG ONCE ONE Stop: 11/01/17 10:59 Insulin Aspart (Novolog Insulin Correctional Sugar Inj) 0 unit SQ Q6HR [facility]; Protocol Last Admin: 11/01/17 07:00 Dose: Not Given Lactulose (Lactulose Liq) 30 ml PO DAILY PRN PRN Reason: SEVERE CONSITIPATION Lactulose (Lactulose Liq) 30 ml PO BID [facility] Last Admin: 11/01/17 08:25 Dose: 30 ml Lansoprazole (Prevacid Solutab) 30 mg NG/OG DAILY [facility] Last Admin: 11/01/17 08:22 Dose: 30 mg Lorazepam (Ativan) 1 mg PO Q4H PRN PRN Reason: for CIWA 8-10 Lorazepam (Ativan) 2 mg PO Q2H PRN PRN Reason: for CIWA 11-14 Mupirocin (Bactroban 2% Nasal Oint) 1 applicatio EACH NARE BID [facility] Last Admin: 11/01/17 08:22 Dose: 1 applicatio Senna/Docusate Sodium (Leatha-Colace) 1 tab PO BID [facility] Last Admin: 11/01/17 08:22 Dose: 1 tab Sennosides (Senokot) 17.2 mg PO Q12H PRN PRN Reason: Moderate Constipation Sodium Chloride (Ns Flush) 2 ml IV.FLUSH BID [facility] Last Admin: 11/01/17 08:24 Dose: 2 ml Sodium Chloride (Ns Flush) 2 ml IV.FLUSH PRN PRN PRN Reason: FLUSH AFTER USING IV ACCESS Terbutaline Sulfate (Brethine Inj) 1 mg SQ UNSCH PRN PRN Reason: For Extravasation Exam Vital signs: Vital Signs 10/31/17 11:22 10/31/17 11:25 10/31/17 12:00 Temperature 101.5 F H Pulse Rate 104 H 104 H Respiratory Rate 23 24 Blood Pressure 90/60 L Pulse Oximetry 98 10/31/17 13:15 10/31/17 16:00 10/31/17 16:21 Temperature 102.5 F H Pulse Rate 120 H 115 H Respiratory Rate 31 H 25 H Blood Pressure 128/66 Pulse Oximetry 100 96 10/31/17 16:23 10/31/17 16:45 10/31/17 17:00 Temperature Pulse Rate 106 H 106 H Respiratory Rate 29 H 27 H 25 H Blood Pressure 97/56 L 97/55 L Pulse Oximetry 10/31/17 17:15 10/31/17 17:30 10/31/17 17:45 Temperature Pulse Rate 107 H 110 H 103 H Respiratory Rate 26 H 24 26 H Blood Pressure 102/61 107/63 100/59 L Pulse Oximetry 10/31/17 18:00 10/31/17 18:15 10/31/17 18:30 Temperature Pulse Rate 102 H 102 H 101 H Respiratory Rate 27 H 26 H 28 H Blood Pressure 100/59 L 98/56 L 96/53 L Pulse Oximetry 10/31/17 18:45 10/31/17 19:00 10/31/17 19:15 Temperature Pulse Rate 105 H 105 H 104 H Respiratory Rate 27 H 25 H 26 H Blood Pressure 96/59 L 98/59 L 100/58 L Pulse Oximetry 10/31/17 19:30 10/31/17 19:45 10/31/17 20:00 Temperature 101.0 F H Pulse Rate 104 H 104 H 104 H Respiratory Rate 25 H 22 25 H Blood Pressure 101/56 L 103/59 L 97/55 L Pulse Oximetry 10/31/17 20:15 10/31/17 20:30 10/31/17 20:45 Temperature Pulse Rate 104 H 103 H 104 H Respiratory Rate 25 H 24 21 Blood Pressure 97/55 L 99/56 L 102/55 L Pulse Oximetry 10/31/17 20:50 10/31/17 21:00 10/31/17 21:15 Temperature Pulse Rate 104 H 104 H 105 H Respiratory Rate 22 22 19 Blood Pressure 96/55 L 101/57 L Pulse Oximetry 10/31/17 21:30 10/31/17 21:45 10/31/17 22:00 Temperature Pulse Rate 107 H 106 H 105 H Respiratory Rate 20 21 21 Blood Pressure 91/52 L 98/56 L 98/58 L Pulse Oximetry 10/31/17 22:15 10/31/17 22:30 10/31/17 23:00 Temperature Pulse Rate 105 H 105 H 104 H Respiratory Rate 21 22 22 Blood Pressure 98/58 L 95/59 L Pulse Oximetry 97 97 11/01/17 00:00 11/01/17 00:26 11/01/17 00:33 Temperature 99.7 F H Pulse Rate 103 H 102 H Respiratory Rate 14 18 14 Blood Pressure 90/49 L Pulse Oximetry 96 96 11/01/17 01:00 11/01/17 02:00 11/01/17 03:00 Temperature Pulse Rate 104 H 107 H 106 H Respiratory Rate 18 17 16 Blood Pressure Pulse Oximetry 96 97 96 11/01/17 04:00 11/01/17 04:08 08/01/18 04:37 Temperature 99.6 F Pulse Rate 107 H 106 H Respiratory Rate 16 16 16 Blood Pressure Pulse Oximetry 97 100 99 11/01/17 05:00 11/01/17 06:00 11/01/17 06:14 Temperature Pulse Rate 113 H 110 H 111 H Respiratory Rate 16 13 13 Blood Pressure 96/52 L 96/52 L Pulse Oximetry 100 98 99 11/01/17 08:10 Temperature Pulse Rate 110 H Respiratory Rate 16 Blood Pressure Pulse Oximetry 100 Intake & Output 10/31/17 11/01/17 11/01/17 18:59 06:59 18:59 Intake Total 3417 / 3417 2967 / 2967 500 / 500 Output Total 850 / 850 250 / 250 Balance 2567 / 2567 2717 / 2717 500 / 500 Weight 128.5 kg 130.5 kg Intake: IV 3417 / 3417 2967 / 2967 500 / 500 LR 1000 mL Inj 1,000 ML @ 150 2000 / 2000 2000 / 2000 mls/hr IV.CONT .Q6H40M [facility] Rx#: [id number] Diprivan 1000 mg/100 ml Inj 1, 200 / 200 100 / 100 000 mg In 100 ml @ 5 MCG/KG/MIN 3.81 mls/hr IV.CONT TITRATE PRN Rx#:[id number] Magnesium Sulfate 1 gm/D5W 100 100 / 100 ml Premix 100 ML @ 100 mls/hr IV.SIG Q1H [facility] Rx#:[id number] Levophed Inj 4 MG In NS Inj 246 500 / 500 250 / 250 250 / 250 ML @ 2 MCG/MIN 7.5 mls/hr IV. SIG TITRATE PRN Rx#:[id number] Zosyn 3.375 GM Premix 50 ML @ 100 / 100 100 / 100 100 mls/hr IV.SIG Q6H [facility] Rx#: [id number] Vancomycin Inj 1,700 MG In NS 517 / 517 517 / 517 Inj 500 ML @ 250 mls/hr IV.SIG Q12H [facility] Rx#:[id number] fentaNYL 10 mcg/mL Premix Drip 250 / 250 2,500 mcg In 250 ml @ 50 MCG/HR 5 mls/hr IV.SIG TITRATE PRN Rx #:[id number] Oral 0 / 0 0 / 0 Output: Urine 150 / 150 0 / 0 Urine Amount (Catheter) 500 / 500 250 / 250 Indwelling Urethral Catheter 500 / 500 250 / 250 Gastric Drainage 200 / 200 Orogastric Tube 200 / 200 Other: # Bowel Movements 0 - Constitutional no acute distress Comments: intubated and sedated - Routine HEENT Exam Head: Present: normocephalic ENT: Present: mucous membranes moist - Routine Neck Exam Present: supple - Routine Respiratory Exam Present: decreased breath sounds, rhonchi. Absent: wheezes, crackles - Routine Cardiovascular Exam Present: RRR, murmur, tachycardia - Routine Abdominal Exam Present: soft, normoactive bowel sounds. Absent: tenderness - Routine Extremities Exam Present: edema Comments: Extremities with bilateral mild edema. left foot with noted wounds. - Routine Skin Exam Present: dry, warm, wounds Results - Lab Results 11/01/17 04:40 11/01/17 04:40 Most recent lab results ABG pH 7.27 (7.380-7.420) L* 11/01/17 05:47 ABG pCO2 45 mmHg (38-42) H 11/01/17 05:47 ABG pO2 136 mmHG (61-120) H 11/01/17 05:47 ABG HCO3 20 mmol/L (22-26) L 11/01/17 05:47 Calcium 7.2 mg/dL (8.5-10.1) L* 11/01/17 04:40 Phosphorus 5.0 mg/dL (2.5-4.9) H D 11/01/17 04:40 Magnesium 1.6 mg/dL (1.5-2.5) 11/01/17 04:40 Assessment and Plan - Assessment (1) Acute kidney injury Code(s): N17.9 - Acute kidney failure, unspecified Status: Acute Plan: Acute kidney injury with a creatinine initially at 1.33->1.95 ->2.89 today. NANETTE most likely ATN from hypotension possible vancomycin toxicity with vancomycin level of 30.9. Urinary output at 750ml. No baseline creatinine available. CT of abdomen with unremarkable kidneys. Urine negative for proteinuria Continue IVF Monitor strict I+O, continue indwelling anderson catheter Avoid nephrotoxins including aminoglycosides and IV contrast Maintain MAP above 65 mmhg With sudden increase in creatinine will also order serology Add on urine osmolarity, sodium, and creatinine Monitor urinary output and BMP <Crystal Valadez - Last Filed: 11/01/17 17:59> History of Present Illness Primary Care Provider: UNKNOWN [facility] - Medical History Medical History: Medical History (Last Reviewed 11/01/17 @ 08:35 by Kika Jackson) EtOH dependence - Surgical History Surgical History: Surgical History (Last Reviewed 11/01/17 @ 08:35 by Kika Jackson) No pertinent past surgical history - Family History Family History: Family History (Last Updated 10/31/17 @ 08:48 by Terra Abdullahi MD) Uncle EtOH dependence Mother Breast cancer Father Prostate cancer Leukemia Medications and Allergies Active Medications: Active Medications Acetaminophen (Tylenol Liq) 650 mg PO Q8H PRN PRN Reason: FEVER Last Admin: 11/01/17 10:18 Dose: 650 mg Al Hydroxide/Mg Hydroxide (Milk Of Magnesia Liq) 30 ml PO Q12H PRN PRN Reason: Mild Constipation Albuterol (Duoneb Neb ([place])) 1 ampul NEB Q4HR NEB [facility] Last Admin: 11/01/17 16:09 Dose: 1 ampul Albuterol (Albuterol Neb (Prn)) 2.5 mg NEB Q2HR NEB PRN PRN Reason: DYSPNEA Artificial Tears (Genteal Severe Dry Eye Relief 0.3% Opth Gel) 1 drops EACH EYE BID [facility] Last Admin: 11/01/17 08:24 Dose: 1 drops Bisacodyl (Dulcolax Supp) 10 mg RECTAL DAILY PRN PRN Reason: SEVERE CONSITIPATION Chlorhexidine Gluconate (Chlorhexidine 2% Cloth) 3 pack TOPICAL DAILY@0400 [facility] Stop: 11/05/17 03:59 Last Admin: 11/01/17 05:17 Dose: 3 pack Chlorhexidine Gluconate (Chlorhexidine 2% Cloth) 3 pack TOPICAL DAILY@0400 PRN PRN Reason: Extra cloth needed Stop: 11/05/17 03:59 Chlorhexidine Gluconate (Peridex 0.12% Oral Kit) 15 ml OROPHARYNG BID@0800, 2000 [facility] Last Admin: 11/01/17 08:25 Dose: 15 ml Dextrose (D50w Vial) 50 ml IV.PUSH UNSCH PRN PRN Reason: PER HYPOGLYCEMIA PROTOCOL Glucagon (Glucagon Inj) 1 mg OTHER PRN PRN PRN Reason: for Hypoglycemia Protocol Hydrocortisone Sodium Succinate (Solucortef Inj) 50 mg IV.PUSH Q6H [facility] Last Admin: 11/01/17 15:26 Dose: 50 mg Sodium Chloride (Ns Inj) 1,000 mls @ 0 mls/hr IV.SIG .Q0M [facility] Last Infusion: 10/30/17 19:36 Dose: Infused Sodium Chloride (Ns Inj) 1,000 mls @ 0 mls/hr IV.SIG .Q0M [facility] Last Infusion: 10/30/17 21:32 Dose: Infused Lactated Ringer's (Lr 1000 Ml Inj) 1,000 mls @ 150 mls/hr IV.CONT .Q6H40M [facility] Last Admin: 11/01/17 17:29 Dose: 150 mls/hr Pharmacy Profile Note (Vancomycin Consult Pharmacy) 0 mls @ 0 mls/hr [facility] Piperacillin/Tazobactam/Dextrose (Zosyn 3.375 Gm Premix) 50 mls @ 100 mls/hr IV.SIG Q6H [facility] Last Admin: 11/01/17 15:26 Dose: 100 mls/hr Multivitamins 10 ml/ Thiamine HCl 100 mg/ Folic Acid 1 mg/Sodium Chloride 511.2 mls @ 127.8 mls/hr IV.SIG Q24H [facility] Stop: 11/03/17 22:59 Last Admin: 10/31/17 23:09 Dose: 127.8 mls/hr Vancomycin HCl 1,700 mg/ (Sodium Chloride) 517 mls @ 250 mls/hr IV.SIG Q12H [facility] Last Admin: 11/01/17 05:17 Dose: 250 mls/hr Propofol (Diprivan 1000 Mg/100 Ml Inj) 1,000 mg in 100 mls @ 3.81 mls/hr IV.CONT TITRATE PRN; Protocol PRN Reason: Per Protocol Last Admin: 11/01/17 17:28 Dose: 5 mcg/kg/min, 3.81 mls/hr Norepinephrine Bitartrate 4 mg (/ Sodium Chloride) 250 mls @ 7.5 mls/hr IV.SIG TITRATE PRN; Protocol PRN Reason: Per Protocol Last Admin: 11/01/17 09:57 Dose: 9 mcg/min, 33.75 mls/hr Fentanyl (Fentanyl 10 Mcg/Ml Premix Drip) 2,500 mcg in 250 mls @ 5 mls/hr IV.SIG TITRATE PRN; Protocol PRN Reason: Per Protocol Last Admin: 11/01/17 08:46 Dose: 250 mcg/hr, 25 mls/hr Insulin Aspart (Novolog Insulin Correctional Sugar Inj) 0 unit SQ Q6HR [facility]; Protocol Last Admin: 11/01/17 12:36 Dose: Not Given Lactulose (Lactulose Liq) 30 ml PO DAILY PRN PRN Reason: SEVERE CONSITIPATION Lactulose (Lactulose Liq) 30 ml PO BID [facility] Last Admin: 11/01/17 08:25 Dose: 30 ml Lansoprazole (Prevacid Solutab) 30 mg NG/OG DAILY [facility] Last Admin: 11/01/17 08:22 Dose: 30 mg Lorazepam (Ativan) 1 mg PO Q4H PRN PRN Reason: for CIWA 8-10 Lorazepam (Ativan) 2 mg PO Q2H PRN PRN Reason: for CIWA 11-14 Mupirocin (Bactroban 2% Nasal Oint) 1 applicatio EACH NARE BID [facility] Last Admin: 11/01/17 08:22 Dose: 1 applicatio Rifaximin (Xifaxan) 550 mg PO Q12HR [facility] Senna/Docusate Sodium (Leatha-Colace) 1 tab PO BID [facility] Last Admin: 11/01/17 08:22 Dose: 1 tab Sennosides (Senokot) 17.2 mg PO Q12H PRN PRN Reason: Moderate Constipation Sodium Chloride (Ns Flush) 2 ml IV.FLUSH BID [facility] Last Admin: 11/01/17 08:24 Dose: 2 ml Sodium Chloride (Ns Flush) 2 ml IV.FLUSH PRN PRN PRN Reason: FLUSH AFTER USING IV ACCESS Terbutaline Sulfate (Brethine Inj) 1 mg SQ UNSCH PRN PRN Reason: For Extravasation Exam Vital signs: Vital Signs 10/31/17 18:00 10/31/17 18:15 10/31/17 18:30 Temperature Pulse Rate 102 H 102 H 101 H Respiratory Rate 27 H 26 H 28 H Blood Pressure 100/59 L 98/56 L 96/53 L Pulse Oximetry 10/31/17 18:45 10/31/17 19:00 10/31/17 19:15 Temperature Pulse Rate 105 H 105 H 104 H Respiratory Rate 27 H 25 H 26 H Blood Pressure 96/59 L 98/59 L 100/58 L Pulse Oximetry 10/31/17 19:30 10/31/17 19:45 10/31/17 20:00 Temperature 101.0 F H Pulse Rate 104 H 104 H 104 H Respiratory Rate 25 H 22 25 H Blood Pressure 101/56 L 103/59 L 97/55 L Pulse Oximetry 10/31/17 20:15 10/31/17 20:30 10/31/17 20:45 Temperature Pulse Rate 104 H 103 H 104 H Respiratory Rate 25 H 24 21 Blood Pressure 97/55 L 99/56 L 102/55 L Pulse Oximetry 10/31/17 20:50 10/31/17 21:00 10/31/17 21:15 Temperature Pulse Rate 104 H 104 H 105 H Respiratory Rate 22 22 19 Blood Pressure 96/55 L 101/57 L Pulse Oximetry 10/31/17 21:30 10/31/17 21:45 10/31/17 22:00 Temperature Pulse Rate 107 H 106 H 105 H Respiratory Rate 20 21 21 Blood Pressure 91/52 L 98/56 L 98/58 L Pulse Oximetry 10/31/17 22:15 10/31/17 22:30 10/31/17 23:00 Temperature Pulse Rate 105 H 105 H 104 H Respiratory Rate 21 22 22 Blood Pressure 98/58 L 95/59 L Pulse Oximetry 97 97 11/01/17 00:00 11/01/17 00:26 11/01/17 00:33 Temperature 99.7 F H Pulse Rate 103 H 102 H Respiratory Rate 14 18 14 Blood Pressure 90/49 L Pulse Oximetry 96 96 11/01/17 01:00 11/01/17 02:00 11/01/17 03:00 Temperature Pulse Rate 104 H 107 H 106 H Respiratory Rate 18 17 16 Blood Pressure Pulse Oximetry 96 97 96 11/01/17 04:00 11/01/17 04:08 11/01/17 04:37 Temperature 99.6 F Pulse Rate 107 H 106 H Respiratory Rate 16 16 16 Blood Pressure Pulse Oximetry 97 100 99 11/01/17 05:00 11/01/17 06:00 11/01/17 06:14 Temperature Pulse Rate 113 H 110 H 111 H Respiratory Rate 16 13 13 Blood Pressure 96/52 L 96/52 L Pulse Oximetry 100 98 99 11/01/17 08:00 11/01/17 08:10 11/01/17 09:16 Temperature 101 F H Pulse Rate 118 H 110 H Respiratory Rate 16 18 Blood Pressure Pulse Oximetry 99 100 11/01/17 10:00 11/01/17 11:45 11/01/17 12:00 Temperature 99.0 F Pulse Rate 118 H 117 H 117 H Respiratory Rate 16 Blood Pressure 103/58 L Pulse Oximetry 11/01/17 14:00 11/01/17 16:00 11/01/17 16:10 Temperature Pulse Rate 114 H 112 H 113 H Respiratory Rate 18 Blood Pressure Pulse Oximetry 94 L Intake & Output 10/31/17 11/01/17 11/01/17 18:59 06:59 18:59 Intake Total 3417 / 3417 2967 / 2967 1600 / 1600 Output Total 850 / 850 250 / 250 Balance 2567 / 2567 2717 / 2717 1600 / 1600 Weight 128.5 kg 130.5 kg Intake: IV 3417 / 3417 2967 / 2967 1600 / 1600 LR 1000 mL Inj 1,000 ML @ 150 2000 / 2000 2000 / 2000 1000 / 1000 mls/hr IV.CONT .Q6H40M [facility] Rx#: [id number] Diprivan 1000 mg/100 ml Inj 1, 200 / 200 100 / 100 50 / 50 000 mg In 100 ml @ 5 MCG/KG/MIN 3.81 mls/hr IV.CONT TITRATE PRN Rx#:[id number] Magnesium Sulfate 1 gm/D5W 100 100 / 100 ml Premix 100 ML @ 100 mls/hr IV.SIG Q1H [facility] Rx#:[id number] Levophed Inj 4 MG In NS Inj 246 500 / 500 250 / 250 250 / 250 ML @ 2 MCG/MIN 7.5 mls/hr IV. SIG TITRATE PRN Rx#:[id number] Zosyn 3.375 GM Premix 50 ML @ 100 / 100 100 / 100 50 / 50 100 mls/hr IV.SIG Q6H [facility] Rx#: [id number] Vancomycin Inj 1,700 MG In NS 517 / 517 517 / 517 Inj 500 ML @ 250 mls/hr IV.SIG Q12H [facility] Rx#:[id number] fentaNYL 10 mcg/mL Premix Drip 250 / 250 2,500 mcg In 250 ml @ 50 MCG/HR 5 mls/hr IV.SIG TITRATE PRN Rx #:[id number] Oral 0 / 0 0 / 0 Output: Urine 150 / 150 0 / 0 Urine Amount (Catheter) 500 / 500 250 / 250 Indwelling Urethral Catheter 500 / 500 250 / 250 Gastric Drainage 200 / 200 Orogastric Tube 200 / 200 Other: # Bowel Movements 0 Results - Lab Results 11/01/17 04:40 11/01/17 04:40 Most recent lab results ABG pH 7.27 (7.380-7.420) L* 11/01/17 05:47 ABG pCO2 45 mmHg (38-42) H 11/01/17 05:47 ABG pO2 136 mmHG (61-120) H 11/01/17 05:47 ABG HCO3 20 mmol/L (22-26) L 11/01/17 05:47 Calcium 7.2 mg/dL (8.5-10.1) L* 11/01/17 04:40 Phosphorus 5.0 mg/dL (2.5-4.9) H D 11/01/17 04:40 Magnesium 1.6 mg/dL (1.5-2.5) 11/01/17 04:40 Assessment and Plan - Assessment (1) Acute kidney injury Code(s): N17.9 - Acute kidney failure, unspecified Status: Acute Plan: Patient seen and examined, agree with above. Has NANETTE, most likely has ATN, from Hypotension or Vanco. toxicity. Urine out put is decreasing, may need HD if no improvement.
--- NOTE | 2017-11-01 12:02 | XR ---
EXAM DATE: 11/01/2017 11:37 AM EDT AGE/SEX: 52 years / Male INDICATIONS: Abdominal distention. CLINICAL DATA: This is the patient's subsequent encounter. Patient reports that signs and symptoms h ave been present for 3 days and indicates a pain score of Nonresponsive. MEDICAL/SURGICAL HISTORY: None. None. COMPARISON: [facility] [place] & PELVIS W CONTRAST, 10/30/2017. . FINDINGS: The abdominal bowel gas pattern is normal. No abnormal masses, calcifications, or organomegaly is s een. The osseous structures are unremarkable. Enteric tube tip overlies the gastric air bubble. CONCLUSION: Nonobstructive bowel gas pattern. Electronically signed by: Nemesio Reina MD 11/01/2017 11:40 AM EDT
--- NOTE | 2017-11-01 13:22 | P.DIET ---
Nutritional Evaluation Type of nutrition evaluation: initial Nutrition consult regarding: Tube Feeding Objective - Diagnosis Sepsis, Alcohol W/D, Hypomagnesemia,PNA, Colitis - Objective [place] body weight: 94.5 kg % IBW: 136 Body Weight Used for Calculations: IBW Energy Needs - Lower Range (kCal/kg): 22 Energy Needs - Upper Range (kCal/kg): 27 Lower Limit kCal/kg (kCals): 2,079 Upper Limit kCal/kg (kCals): 2,552 Lower Limit Protein Factor (Grams per Kg): 0.9 Upper Limit Protein Factor (Grams per Kg): 1.1 Lower Protein Needs (Protein): 85 Upper Protein Needs (Protein): 104 Dietitian Reviewed in Medical Record: Curent medications, Intake & Output, Labs , Medical history, Tube feeding Diet Order: TF'ing Nepro @ goal rate 40ml/hr Objective Comments: PMH: Alcoho Dependence Labs Include: Ammonia 57, BUN 26, Creatinine 2.89, estGFR 23, Glucose 122, HgA1C 5.4 Meds Include: Propofol, Fentanyl, Lactulose, Xifaxan -BM, -UOP 750ml Feeding - Current Tube Feeding Tube Feeding Product: Nepro Assessment Assessment: Pt is at nutritional risk r/t diagnosis and need for TF'ing. To best meet pt's assessed needs for TF'ing w/Nepro, Rec a goal rate @ 50ml/hr to offer 2160 kcal , 97.2g Protein and 872ml free water. Propofol provides some additional kcals (1.1 kcal/ml)when running. Labs reviewed-monitor renal and liver labs closely. Additional Recs to follow r/t Clinical Course. Recommendations: 1.To best meet pt's assessed needs for TF'ing w/Nepro, Rec a goal rate @ 50ml/ hr 2.Propofol provides some additional kcals(1.1 kcal/ml)when running 3.Additional Recs to follow r/t Clinical Course Dietitian to Monitor: Lab values, Electrolytes, Renal labs, Liver enzymes, Glucose level, Tube feeding tolerance, Weight change, Medical course
[2017-11-01] MEDS ORDERED: Calcium Chloride Inj 0.34 GM in Dextrose 5% in Water Inj 100 ML IV.SIG ONE ×2 (14:00)
--- NOTE | 2017-11-01 14:21 | P.PNADD ---
Addendum to Inpatient Note Additional information: pt seen today around 12:30 pm full note to follow
[2017-11-01] MEDS: rifAXIMin 550 MG Tablet PO SCH (21:00)
--- NOTE | 2017-11-01 23:26 | P.PNID ---
Subjective Remarks: may entry pt was seen earlier today on 40% FiO2 Levaphed down to 6 mcgs waking up Antibiotics: zosyn vanco Past Medical History: ETOH Allergies/Adverse Reactions: Allergies No Known Allergies Allergy (Unverified 10/30/17 17:35) Objective Vital Signs 11/01/17 00:00 11/01/17 00:26 11/01/17 00:33 Temperature 99.7 F H Pulse Rate 103 H 102 H Respiratory Rate 14 18 14 Blood Pressure 90/49 L Pulse Oximetry 96 96 11/01/17 01:00 11/01/17 02:00 11/01/17 03:00 Temperature Pulse Rate 104 H 107 H 106 H Respiratory Rate 18 17 16 Blood Pressure Pulse Oximetry 96 97 96 11/01/17 04:00 11/01/17 04:08 11/01/17 04:37 Temperature 99.6 F Pulse Rate 107 H 106 H Respiratory Rate 16 16 16 Blood Pressure Pulse Oximetry 97 100 99 11/01/17 05:00 11/01/17 06:00 11/01/17 06:14 Temperature Pulse Rate 113 H 110 H 111 H Respiratory Rate 16 13 13 Blood Pressure 96/52 L 96/52 L Pulse Oximetry 100 98 99 11/01/17 07:00 11/01/17 08:00 11/01/17 08:10 Temperature 101 F H Pulse Rate 111 H 118 H 110 H Respiratory Rate 14 14 16 Blood Pressure Pulse Oximetry 96 99 100 11/01/17 09:00 11/01/17 09:16 11/01/17 10:00 Temperature Pulse Rate 118 H 118 H Respiratory Rate 14 18 13 Blood Pressure Pulse Oximetry 99 99 11/01/17 10:49 11/01/17 11:00 11/01/17 11:45 Temperature Pulse Rate 121 H 120 H 117 H Respiratory Rate 13 19 16 Blood Pressure 99/57 L 118/63 Pulse Oximetry 100 96 11/01/17 12:00 11/01/17 13:00 11/01/17 14:00 Temperature 99.0 F Pulse Rate 117 H 116 H 112 H Respiratory Rate 14 13 15 Blood Pressure 103/58 L 100/59 L 95/55 L Pulse Oximetry 96 93 L 94 L 11/01/17 15:00 11/01/17 16:00 11/01/17 16:10 Temperature 100 F H Pulse Rate 110 H 112 H 113 H Respiratory Rate 20 20 18 Blood Pressure 99/62 L 113/64 Pulse Oximetry 95 95 94 L 11/01/17 17:00 11/01/17 17:01 11/01/17 18:00 Temperature Pulse Rate 113 H 113 H 112 H Respiratory Rate 23 18 15 Blood Pressure 114/71 109/70 Pulse Oximetry 97 96 98 11/01/17 19:00 11/01/17 20:00 11/01/17 20:31 Temperature 98.1 F Pulse Rate 105 H 103 H 101 H Respiratory Rate 14 14 14 Blood Pressure 98/59 L 96/59 L Pulse Oximetry 97 91 L 91 L 11/01/17 21:00 11/01/17 21:13 11/01/17 22:00 Temperature Pulse Rate 102 H 102 H 99 H Respiratory Rate 15 16 Blood Pressure 81/57 L 92/60 L Pulse Oximetry 93 L 92 L Intake & Output 11/01/17 11/01/17 11/02/17 06:59 18:59 06:59 Intake Total 2967 / 2967 2085 / 2085 Output Total 250 / 250 200 / 200 Balance 2717 / 2717 1885 / 1885 Weight 130.5 kg Intake: IV 2967 / 2967 1900 / 1900 LR 1000 mL Inj 1,000 ML @ 150 2000 / 2000 1000 / 1000 mls/hr IV.CONT .Q6H40M AM[facility]O Rx#: [id number] Diprivan 1000 mg/100 ml Inj 1, 100 / 100 50 / 50 000 mg In 100 ml @ 5 MCG/KG/MIN 3.81 mls/hr IV.CONT TITRATE PRN Rx#:[id number] Levophed Inj 4 MG In NS Inj 246 250 / 250 500 / 500 ML @ 2 MCG/MIN 7.5 mls/hr IV. SIG TITRATE PRN Rx#:[id number] Zosyn 3.375 GM Premix 50 ML @ 100 / 100 100 / 100 100 mls/hr IV.SIG Q6H AM[facility]O Rx#: [id number] Vancomycin Inj 1,700 MG In NS 517 / 517 Inj 500 ML @ 250 mls/hr IV.SIG Q12H [facility] Rx#:[id number] fentaNYL 10 mcg/mL Premix Drip 250 / 250 2,500 mcg In 250 ml @ 50 MCG/HR 5 mls/hr IV.SIG TITRATE PRN Rx #:[id number] Oral 0 / 0 0 / 0 Tube Feeding 65 / 65 Water Bolus Amount 120 / 120 Output: Urine 0 / 0 Urine Amount (Catheter) 250 / 250 200 / 200 Indwelling Urethral Catheter 250 / 250 200 / 200 Other: # Bowel Movements 0 0 10/30/17 17:50 Blood - Peripheral Aerobic Blood Culture - Preliminary Group A beta (Strep pyogenes) 10/30/17 17:50 Blood - Peripheral Anaerobic Blood Culture - Preliminary Group A beta (Strep pyogenes) 10/30/17 17:50 Blood - Peripheral Aerobic Blood Culture - Preliminary Group A beta (Strep pyogenes) Staphylococcus aureus 10/30/17 17:50 Blood - Peripheral Anaerobic Blood Culture - Preliminary Group A beta (Strep pyogenes) 10/31/17 04:55 Sputum - Endotracheal Gram Stain - Final 10/31/17 04:55 Sputum - Endotracheal Sputum Culture - Preliminary Immature growth - reincubate 11/01/17 06:39 Blood - Peripheral Aerobic Blood Culture - Pending 11/01/17 06:39 Blood - Peripheral Anaerobic Blood Culture - Pending 11/01/17 04:40 Blood - Peripheral Aerobic Blood Culture - Pending 11/01/17 04:40 Blood - Peripheral Anaerobic Blood Culture - Pending 10/31/17 01:10 Urine - Catheterized Urine Streptococcus pneumoniae Antigen ( M - Final Presumptive negative for streptococcus pneumoniae antigen, suggesting no current or recent infection. Infection due to Streptococcus pneumoniae cannot be ruled out since the antigen present in the sample may be below the detection limit of the test. 10/31/17 01:10 Urine - Catheterized Urine Legionella Antigen - Final Presumptive negative for Legionella pneumophila serogroup 1 antigen in urine, suggesting no recent or recurrent infection. Infection due to Legionella cannot be ruled out since other serogroups and species may cause disease, antigen may not be present in urine in early infection, and the level of antigen present in the urine may be below the detection limit of the test. 10/31/17 02:30 Nasal Wash Influenza Types A,B Antigen - Final Negative for FLU A and B antigen Infection due to influenza A or B cannot be ruled out since the antigen present in the sample may be below the detection limit of the test. Lab - Hematology Results 10/31/17 11/01/17 04:18 04:40 WBC 23.8 H 19.2 H RBC 3.70 L 3.67 L Hgb 12.8 L 12.6 L Hct 38.7 L 38.3 L MCV 104.6 H 104.4 H MCH 34.6 H 34.4 H MCHC 33.1 32.9 RDW 14.7 15.3 Plt Count 70 L 56 L MPV 9.8 9.5 Prelim Diff (Auto) Slide review pending Slide review pending Neut % (Auto) 95.5 H 90.0 H Lymph % (Auto) 1.0 L 5.5 L [place] % (Auto) 2.9 3.7 Eos % (Auto) 0.0 0.3 Baso % (Auto) 0.6 0.5 Neut # (Auto) 22.8 H 17.3 H Lymph # (Auto) 0.2 L 1.1 [place] # (Auto) 0.7 0.7 Eos # (Auto) 0.0 0.1 Baso # (Auto) 0.1 0.1 WBC Differential Manual diff final Manual diff final Seg Neuts % (Manual) 59 65 Band Neuts % (Manual) 35 H 25 H Lymphocytes % (Manual) 1 L 3 L Monocytes % (Manual) 1 3 Metamyelocytes % (Man) 4 H 4 H Abs Neuts (Manual) 23.3 H 18.0 H Differential Comment . . Toxic Granulation 1+ H Toxic Vacuolation Present H Present H Dohle Bodies Present H Platelet Estimate Low L Low L Platelet Morphology Enlarged H Normal Lab - Chemistry Results 10/30/17 10/30/17 10/30/17 17:39 22:28 22:28 Sodium Potassium Chloride Carbon Dioxide Anion Gap BUN Creatinine Estimated GFR POC Glucose Random Glucose Hemoglobin A1c Lactic Acid 11.1 H* Calcium Prot Corrected Calcium Phosphorus 1.2 L Magnesium Total Bilirubin AST ALT Alkaline Phosphatase Ammonia 44 H Total Creatine Kinase CK-MB (CK-2) CK-MB (CK-2) % Troponin I Total Protein Albumin Beta-Hydroxybutyric Acd TSH 0.250 L Free T4 Free T3 10/30/17 10/31/17 10/31/17 22:28 04:05 04:18 Sodium Potassium Chloride Carbon Dioxide Anion Gap BUN Creatinine Estimated GFR POC Glucose Random Glucose Hemoglobin A1c 5.4 Lactic Acid 9.0 H* Calcium Prot Corrected Calcium Phosphorus Magnesium Total Bilirubin AST ALT Alkaline Phosphatase Ammonia Total Creatine Kinase CK-MB (CK-2) CK-MB (CK-2) % Troponin I Total Protein Albumin Beta-Hydroxybutyric Acd 0.13 TSH Free T4 Free T3 10/31/17 10/31/17 10/31/17 04:18 12:04 12:04 Sodium 138 Potassium 5.4 H D 5.2 H Chloride 101 Carbon Dioxide 23.2 Anion Gap 14 BUN 9 Creatinine 1.95 H Estimated GFR 36 L POC Glucose Random Glucose 139 H D Hemoglobin A1c Lactic Acid Calcium 7.1 L* Prot Corrected Calcium 7.1 L* Phosphorus 3.4 D Magnesium 1.2 L Total Bilirubin 6.5 H AST 173 H ALT 36 Alkaline Phosphatase 184 H Ammonia Total Creatine Kinase 586 H CK-MB (CK-2) 2.1 CK-MB (CK-2) % 0.4 Troponin I Total Protein 7.3 Albumin 2.5 L Beta-Hydroxybutyric Acd TSH Free T4 1.28 Free T3 1.57 L 10/31/17 10/31/17 10/31/17 12:04 13:15 17:34 Sodium Potassium Chloride Carbon Dioxide Anion Gap BUN Creatinine Estimated GFR POC Glucose 148 H 94 Random Glucose Hemoglobin A1c Lactic Acid 5.3 H* Calcium Prot Corrected Calcium Phosphorus Magnesium Total Bilirubin AST ALT Alkaline Phosphatase Ammonia Total Creatine Kinase CK-MB (CK-2) CK-MB (CK-2) % Troponin I Total Protein Albumin Beta-Hydroxybutyric Acd TSH Free T4 Free T3 10/31/17 11/01/17 11/01/17 18:20 00:36 04:40 Sodium Potassium Chloride Carbon Dioxide Anion Gap BUN Creatinine Estimated GFR POC Glucose 99 Random Glucose Hemoglobin A1c Lactic Acid 4.3 H* 6.0 H* Calcium Prot Corrected Calcium Phosphorus Magnesium Total Bilirubin AST ALT Alkaline Phosphatase Ammonia Total Creatine Kinase CK-MB (CK-2) CK-MB (CK-2) % Troponin I Total Protein Albumin Beta-Hydroxybutyric Acd TSH Free T4 Free T3 11/01/17 11/01/17 11/01/17 04:40 04:40 12:34 Sodium 137 Potassium 5.1 Chloride 102 Carbon Dioxide 23.7 Anion Gap 11 BUN 26 H Creatinine 2.89 H Estimated GFR 23 L POC Glucose 122 H Random Glucose 105 Hemoglobin A1c Lactic Acid Calcium 7.2 L* Prot Corrected Calcium 7.3 L* Phosphorus 5.0 H D Magnesium 1.6 Total Bilirubin 8.9 H AST 190 H ALT 37 Alkaline Phosphatase 100 Ammonia 57 H Total Creatine Kinase 882 H CK-MB (CK-2) 2.1 CK-MB (CK-2) % 0.2 Troponin I 0.73 H* Total Protein 7.0 Albumin 2.2 L Beta-Hydroxybutyric Acd TSH Free T4 Free T3 11/01/17 11/01/17 11/01/17 12:45 12:45 18:05 Sodium Potassium Chloride Carbon Dioxide Anion Gap BUN Creatinine Estimated GFR POC Glucose 134 H Random Glucose Hemoglobin A1c Lactic Acid 5.2 H* Cancelled Calcium Prot Corrected Calcium Phosphorus Magnesium Total Bilirubin AST ALT Alkaline Phosphatase Ammonia Total Creatine Kinase CK-MB (CK-2) CK-MB (CK-2) % Troponin I Total Protein Albumin Beta-Hydroxybutyric Acd TSH Free T4 Free T3 11/01/17 11/01/17 18:40 21:28 Sodium Potassium Chloride Carbon Dioxide Anion Gap BUN Creatinine Estimated GFR POC Glucose Random Glucose Hemoglobin A1c Lactic Acid 1.9 Calcium Prot Corrected Calcium Phosphorus Magnesium Total Bilirubin AST ALT Alkaline Phosphatase Ammonia Total Creatine Kinase CK-MB (CK-2) CK-MB (CK-2) % Troponin I 0.53 H Total Protein Albumin Beta-Hydroxybutyric Acd TSH Free T4 Free T3 Imaging: ITS Impressions Abdomen/Pelvis CT 10/30/17 17:35 CONCLUSION: 1. Mild colitis predominantly on the right side with trace free fluid and some inflammatory changes on the right. No bowel obstruction. No free air. 2. Multiple layering gallstones. 3. Subsegmental basilar airspace consolidation in the lungs. Differential diagnosis includes mild pneumonia. 4. Fatty liver enlarged to [address] 10/30/17 17:35 CONCLUSION: 1. No acute intracranial abnormalities. . Chest CTA 10/30/17 19:02 CONCLUSION: 1. Suboptimal bolus but no evidence for central pulmonary emboli. 2. Patchy airspace consolidation right lung base most characteristic of pneumonia. No significant effusion. Foot X-Ray 10/30/17 21:27 CONCLUSION: No acute findings. Moderate degenerative change. Bone spurs posterior calcaneus. Lumbar Spine CT 10/30/17 21:43 CONCLUSION: 1. No acute fracture. 2. 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 3. At L5-S1 there is a small central disc protrusion. Mild bilateral foraminal encroachment. Thoracic Spine CT 10/30/17 21:43 CONCLUSION: 1. Negative for acute traumatic injury to the thoracic spine. Small Schmorl's nodes in the lower thoracic spine. Foot MRI 10/31/17 00:00 CONCLUSION: 1. Lumbar Spine MRI 10/31/17 00:00 CONCLUSION: Extruded disc fragment with a donor site at L4-L5 lying posterior to the L4 vertebral body severe right-sided and moderate left-sided foraminal narrowing. There is no evidence of abscess. Sacrum/Coccyx MRI 10/31/17 00:00 CONCLUSION: 1. Negative MRI of the sacrum Chest X-Ray 11/01/17 06:00 CONCLUSION: Mid inspiratory study with crowding of the lung vasculature and perihilar and bibasilar opacities which appear mildly increased. Abdomen X-Ray 11/01/17 10:38 CONCLUSION: Nonobstructive bowel gas pattern. Physical Exam: GENERAL: seadted intubated SKIN: Warm and dry. HEAD: Atraumatic. Normocephalic. EYES: Pupils equal and round. No scleral icterus. No injection or drainage. ENT: No nasal bleeding or discharge. Mucous membranes pink and moist. NECK: Trachea midline. No JVD. CARDIOVASCULAR: Regular rate and rhythm. RESPIRATORY: No accessory muscle use. rhonchi to auscultation. Breath sounds equal bilaterally. GASTROINTESTINAL: Abdomen soft, tender, moderately distended. Hepatic and splenic margins not palpable. : small amount of dark urine in [place]erson bag MUSCULOSKELETAL: Extremities without clubbing, cyanosis, or edema. No obvious deformities. NEUROLOGICAL: ersponsive, more awake. No obvious cranial nerve deficits. Motor grossly within normal limits. Five out of 5 muscle strength in the arms and legs. PSYCHIATRIC: unable to a ssess Assessment and Plan - Plan GAS sepsis ? source MSSA sepsis - PNA is most likely Acute VDRF Acute ETOH withdrawl Lactic acidosis change zosyn to Unasyn 2 D echo
[2017-11-02] MEDS: Multivitamin Inj 10 ML, Thiamine Inj 100 MG, Folic Acid Inj 1 MG in Sodium Chlor 0.9% I... IV.SIG SCH ×3 (00:02→23:12)
[2017-11-02] MEDS: Ampicillin/Sulbactam Inj 3 GM in Sodium Chloride 0.9% Inj 100 ML IV.SIG SCH ×3 (00:04→23:10)
[2017-11-02 00:06] LABS: Creatinine,Urine Random 268 mg/dL (27-300)
[2017-11-02] MEDS: fentaNYL 10 mcg/mL Premix Drip 2,500 MCG/250 ML BAG IV.SIG PRN ×3 (01:56→23:18)
[2017-11-02] MEDS: Propofol 1000 mg/100 ml Inj 1,000 MG/100 ML BOTTLE IV.CONT PRN ×2 (01:57→06:40)
[2017-11-02] MEDS: Insulin NovoLOG Aspart Correctional Sugar Inj SQ SCH ×5 (02:10→23:11)
[2017-11-02] MEDS: Oral Hygiene Kit OROPHARYNG SCH ×5 (02:10→23:11)
[2017-11-02 04:26] LABS: Baso % (Auto) 0.2 % (0.0-2.0); Eos # (Auto) 0.3 th/mm3 (0.0-0.4); Eos % (Auto) 1.7 % (0.0-4.0); Hematocrit 36.7 % (39.0-51.0); Lymph % (Auto) 5.5 % (9.0-44.0); Mean Corpuscular HGB Conc 32.7 % (32.0-36.0); Mean Corpuscular Hemoglobin 34.3 pg (27.0-34.0); Mean Corpuscular Volume 104.9 fL (80.0-100.0); Mean Platelet Volume 10.8 fL (7.0-11.0); Mono # (Auto) 1.2 th/mm3 (0.0-0.9); Mono % (Auto) 6.8 % (0.0-8.0); Neut % (Auto) 85.8 % (16.0-70.0); Platelet Count 48 th/mm3 (150-450); Red Cell Distribution Width 15.2 % (11.6-17.2); White Blood Count 17.5 th/mm3 (4.0-11.0)
[2017-11-02] MEDS: Chlorhexidine Gluconate 2% 1 Pack (2 Cloths) TOPICAL SCH (04:26)
[2017-11-02] MEDS: Hydrocortisone Sod Succinate 100 MG Vial IV.PUSH SCH ×4 (04:26→20:16)
[2017-11-02 04:27] LABS: INR 1.9 Ratio; Prothrombin Time 18.9 sec (9.8-11.6)
[2017-11-02 04:46] LABS: Calcium 6.7 mg/dL (8.5-10.1); Carbon Dioxide 26.3 meq/L (21.0-32.0); Phosphorus 7.3 mg/dL (2.5-4.9); Potassium 5.3 meq/L (3.5-5.1); Total Protein 6.7 g/dL (6.4-8.2); Troponin I 0.42 ng/mL (0.02-0.05)
[2017-11-02 05:30] LABS: Lymphocytes 5 % (9-44); Monocytes 5 % (0-8)
[2017-11-02 05:31] LABS: Dohle Bodies Present; Toxic Granulation 1+
--- NOTE | 2017-11-02 08:02 | P.PNCC ---
Subjective Subjective Remarks/Hospital Course: 52-year-old male with a past medical history of alcohol dependence who sought medical attention after a friend found him in the hotel room with fever and ill appearance after episode of binge drinking. Patient has multiple bruises and states he has been falling often which he attributes to poor footwear. His primary complaint is pain and tenderness of his sacrum and L4/L5 region. Denies IVDU. Denies CP, SOB, Cough, sputum production, urinary symptoms , abdominal pain, nausea, vomiting, headache, neck pain, neck stiffness. He does report some diarrhea, nonbloody, non melena and difficult to quantify. He says he has "always drank EtOH heavily, but it has been drinking more than usual over the last 2 weeks". He is tremulous, hypertensive, tachycardic with clinical appearance of EtOH withdrawal. ED workup included CT brain which is negative, CT chest with RLL consolidation, CT abd/pelvis with wall thickening c/ w colitis of ascending/transverse colon. WBC 23.5, lactic acid 11.4. In the ED he has received vancomycin, piperacillin/tazobactam, NS 2 L bolus, magnesium sulfate 1 gram IV, Ativan 2 mg IV, Thiamine 100 mg IV, Ofirmev 1 gram IV. SUBJECTIVE: 10/31: Remains on norepinephrine drip at 8 mcg/min. Weaning FiO2 and ventilator. Minimal response on the ventilator on propofol and dexmedetomidine drips. MRI of the lumbar spine, sacrum and foot will be performed this afternoon. Noted gram-positive cocci bacteremia. 2D echocardiogram ordered repeat blood cultures today. Currently on vancomycin and piperacillin/ tazobactam. 11/01 Patient is sedated with Diprivan and Fentanyl drips. On Levophed 9 mics. Renal function worse this morning with Cr: 2.89 from 1.95. Afebrile. 11/02 Patient remains intubated and sedated. Renal function continue to decline with Cr: 4.22 from 2.89 with poor UOP. Afebrile. Levophed down 1 jaison. Objective Vital Signs / I&O: Vital Signs 11/01/17 08:00 11/01/17 08:10 11/01/17 09:00 Temperature 101 F H Pulse Rate 118 H 110 H 118 H Respiratory Rate 14 16 14 Blood Pressure Pulse Oximetry 99 100 99 11/01/17 09:16 11/01/17 10:00 11/01/17 10:49 Temperature Pulse Rate 118 H 121 H Respiratory Rate 18 13 13 Blood Pressure 99/57 L Pulse Oximetry 99 100 11/01/17 11:00 11/01/17 11:45 11/01/17 12:00 Temperature 99.0 F Pulse Rate 120 H 117 H 117 H Respiratory Rate 19 16 14 Blood Pressure 118/63 103/58 L Pulse Oximetry 96 96 11/01/17 13:00 11/01/17 14:00 11/01/17 15:00 Temperature Pulse Rate 116 H 112 H 110 H Respiratory Rate 13 15 20 Blood Pressure 100/59 L 95/55 L 99/62 L Pulse Oximetry 93 L 94 L 95 11/01/17 16:00 11/01/17 16:10 11/01/17 17:00 Temperature 100 F H Pulse Rate 112 H 113 H 113 H Respiratory Rate 20 18 23 Blood Pressure 113/64 Pulse Oximetry 95 94 L 97 11/01/17 17:01 11/01/17 18:00 11/01/17 19:00 Temperature Pulse Rate 113 H 112 H 105 H Respiratory Rate 18 15 14 Blood Pressure 114/71 109/70 98/59 L Pulse Oximetry 96 98 97 11/01/17 20:00 11/01/17 20:31 11/01/17 21:00 Temperature 98.1 F Pulse Rate 103 H 101 H 102 H Respiratory Rate 14 14 15 Blood Pressure 96/59 L 81/57 L Pulse Oximetry 91 L 91 L 93 L 11/01/17 21:13 11/01/17 22:00 11/01/17 23:00 Temperature Pulse Rate 102 H 100 H 102 H Respiratory Rate 16 14 22 Blood Pressure 92/60 L 93/56 L 99/65 L Pulse Oximetry 92 L 93 L 89 L 11/02/17 00:00 11/02/17 00:09 11/02/17 02:00 Temperature 98.1 F Pulse Rate 99 H 97 H 92 H Respiratory Rate 39 H 14 Blood Pressure 100/59 L Pulse Oximetry 93 L 92 L 11/02/17 02:56 11/02/17 04:00 11/02/17 04:19 Temperature 98.1 F Pulse Rate 89 Respiratory Rate 14 39 H 14 Blood Pressure 130/59 L Pulse Oximetry 93 L 93 L 11/02/17 04:22 11/02/17 06:00 Temperature Pulse Rate 87 87 Respiratory Rate 14 Blood Pressure 93/49 L Pulse Oximetry Intake & Output 11/01/17 11/02/17 11/02/17 18:59 06:59 18:59 Intake Total 2335 / 2335 2196.2 / 2196.2 Output Total 200 / 200 575 / 575 Balance 2135 / 2135 1621.2 / 1621.2 Weight 140 kg Intake: IV 2150 / 2150 1861.2 / 1861.2 LR 1000 mL Inj 1,000 ML @ 150 1000 / 1000 1000 / 1000 mls/hr IV.CONT .Q6H40M [facility] Rx#: [id number] Diprivan 1000 mg/100 ml Inj 1, 50 / 50 200 / 200 000 mg In 100 ml @ 5 MCG/KG/MIN 3.81 mls/hr IV.CONT TITRATE PRN Rx#:[id number] Unasyn Inj 3 GM In NS Inj 100 100 / 100 ML @ 200 mls/hr IV.SIG Q12H [facility] Rx#:[id number] MVI-12 Inj 10 ML Thiamine Inj 511.2 / 511.2 100 MG Folvite Inj 1 MG In NS Inj 500 ML @ 127.8 mls/hr IV. SIG Q24H [facility] Rx#:[id number] Levophed Inj 4 MG In NS Inj 246 500 / 500 ML @ 2 MCG/MIN 7.5 mls/hr IV. SIG TITRATE PRN Rx#:[id number] Zosyn 3.375 GM Premix 50 ML @ 100 / 100 50 / 50 100 mls/hr IV.SIG Q6H [facility] Rx#: [id number] fentaNYL 10 mcg/mL Premix Drip 500 / 500 2,500 mcg In 250 ml @ 50 MCG/HR 5 mls/hr IV.SIG TITRATE PRN Rx #:[id number] Oral 0 / 0 Tube Feeding 65 / 65 335 / 335 Water Bolus Amount 120 / 120 Output: Stool 300 / 300 Urine Amount (Catheter) 200 / 200 275 / 275 Indwelling Urethral Catheter 200 / 200 275 / 275 Other: # Bowel Movements 0 0 Result Diagrams: 11/02/17 04:00 11/02/17 04:00 Other Results: Laboratory Results - last 12 hr 11/01/17 11/01/17 11/01/17 12:45 12:45 18:40 WBC RBC Hgb Hct MCV MCH MCHC RDW Plt Count MPV Prelim Diff (Auto) Neut % (Auto) Lymph % (Auto) [place] % (Auto) Eos % (Auto) Baso % (Auto) Neut # (Auto) Lymph # (Auto) [place] # (Auto) Eos # (Auto) Baso # (Auto) WBC Differential Seg Neuts % (Manual) Band Neuts % (Manual) Lymphocytes % (Manual) Monocytes % (Manual) Abs Neuts (Manual) Differential Comment Toxic Granulation Dohle Bodies Platelet Estimate Platelet Morphology PT INR Sodium Potassium Chloride Carbon Dioxide Anion Gap BUN Creatinine Estimated GFR POC Glucose Random Glucose Lactic Acid Calcium Prot Corrected Calcium Phosphorus Total Bilirubin AST ALT Alkaline Phosphatase Troponin I 0.53 H Total Protein Albumin Urine Osmolality 315 Ur Random Creatinine 268 Ur Random Sodium 9 Random Vancomycin Complement C3 Complement C4 11/01/17 11/01/17 11/02/17 21:28 23:38 04:00 WBC RBC Hgb Hct MCV MCH MCHC RDW Plt Count MPV Prelim Diff (Auto) Neut % (Auto) Lymph % (Auto) [place] % (Auto) Eos % (Auto) Baso % (Auto) Neut # (Auto) Lymph # (Auto) [place] # (Auto) Eos # (Auto) Baso # (Auto) WBC Differential Seg Neuts % (Manual) Band Neuts % (Manual) Lymphocytes % (Manual) Monocytes % (Manual) Abs Neuts (Manual) Differential Comment Toxic Granulation Dohle Bodies Platelet Estimate Platelet Morphology PT INR Sodium Potassium Chloride Carbon Dioxide Anion Gap BUN Creatinine Estimated GFR POC Glucose 140 H Random Glucose Lactic Acid 1.9 1.0 Calcium Prot Corrected Calcium Phosphorus Total Bilirubin AST ALT Alkaline Phosphatase Troponin I Total Protein Albumin Urine Osmolality Ur Random Creatinine Ur Random Sodium Random Vancomycin Complement C3 Complement C4 11/02/17 11/02/17 11/02/17 04:00 04:00 04:00 WBC 17.5 H RBC 3.50 L Hgb 12.0 L Hct 36.7 L MCV 104.9 H MCH 34.3 H MCHC 32.7 RDW 15.2 Plt Count 48 L MPV 10.8 Prelim Diff (Auto) Slide review pending Neut % (Auto) 85.8 H Lymph % (Auto) 5.5 L [place] % (Auto) 6.8 Eos % (Auto) 1.7 Baso % (Auto) 0.2 Neut # (Auto) 15.0 H Lymph # (Auto) 1.0 [place] # (Auto) 1.2 H Eos # (Auto) 0.3 Baso # (Auto) 0.0 WBC Differential Manual diff final Seg Neuts % (Manual) 66 Band Neuts % (Manual) 24 H Lymphocytes % (Manual) 5 L Monocytes % (Manual) 5 Abs Neuts (Manual) 15.8 H Differential Comment . Toxic Granulation 1+ H Dohle Bodies Present H Platelet Estimate Low L Platelet Morphology Enlarged H PT 18.9 H INR 1.9 Sodium 140 Potassium 5.3 H Chloride 105 Carbon Dioxide 26.3 Anion Gap 9 BUN 43 H Creatinine 4.22 H Estimated GFR 15 L POC Glucose Random Glucose 146 H Lactic Acid Calcium 6.7 L* Prot Corrected Calcium 6.9 L* Phosphorus 7.3 H D Total Bilirubin 11.0 H AST 173 H ALT 38 Alkaline Phosphatase 67 Troponin I 0.42 H Total Protein 6.7 Albumin 2.0 L Urine Osmolality Ur Random Creatinine Ur Random Sodium Random Vancomycin 33.0 Complement C3 62 L Complement C4 15 11/02/17 05:17 WBC RBC Hgb Hct MCV MCH MCHC RDW Plt Count MPV Prelim Diff (Auto) Neut % (Auto) Lymph % (Auto) [place] % (Auto) Eos % (Auto) Baso % (Auto) Neut # (Auto) Lymph # (Auto) [place] # (Auto) Eos # (Auto) Baso # (Auto) WBC Differential Seg Neuts % (Manual) Band Neuts % (Manual) Lymphocytes % (Manual) Monocytes % (Manual) Abs Neuts (Manual) Differential Comment Toxic Granulation Dohle Bodies Platelet Estimate Platelet Morphology PT INR Sodium Potassium Chloride Carbon Dioxide Anion Gap BUN Creatinine Estimated GFR POC Glucose 136 H Random Glucose Lactic Acid Calcium Prot Corrected Calcium Phosphorus Total Bilirubin AST ALT Alkaline Phosphatase Troponin I Total Protein Albumin Urine Osmolality Ur Random Creatinine Ur Random Sodium Random Vancomycin Complement C3 Complement C4 Imaging: Abdomen/Pelvis CT 10/30/17 17:35 CONCLUSION: 1. Mild colitis predominantly on the right side with trace free fluid and some inflammatory changes on the right. No bowel obstruction. No free air. 2. Multiple layering gallstones. 3. Subsegmental basilar airspace consolidation in the lungs. Differential diagnosis includes mild pneumonia. 4. Fatty liver enlarged to [address] 10/30/17 17:35 CONCLUSION: 1. No acute intracranial abnormalities. . Chest CTA 10/30/17 19:02 CONCLUSION: 1. Suboptimal bolus but no evidence for central pulmonary emboli. 2. Patchy airspace consolidation right lung base most characteristic of pneumonia. No significant effusion. Foot X-Ray 10/30/17 21:27 CONCLUSION: No acute findings. Moderate degenerative change. Bone spurs posterior calcaneus. Lumbar Spine CT 10/30/17 21:43 CONCLUSION: 1. No acute fracture. 2. 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 3. At L5-S1 there is a small central disc protrusion. Mild bilateral foraminal encroachment. Thoracic Spine CT 10/30/17 21:43 CONCLUSION: 1. Negative for acute traumatic injury to the thoracic spine. Small Schmorl's nodes in the lower thoracic spine. Foot MRI 10/31/17 00:00 CONCLUSION: 1. Lumbar Spine MRI 10/31/17 00:00 CONCLUSION: Extruded disc fragment with a donor site at L4-L5 lying posterior to the L4 vertebral body severe right-sided and moderate left-sided foraminal narrowing. There is no evidence of abscess. Sacrum/Coccyx MRI 10/31/17 00:00 CONCLUSION: 1. Negative MRI of the sacrum Chest X-Ray 11/01/17 06:00 CONCLUSION: Mid inspiratory study with crowding of the lung vasculature and perihilar and bibasilar opacities which appear mildly increased. Abdomen X-Ray 11/01/17 10:38 CONCLUSION: Nonobstructive bowel gas pattern. Objective Remarks: GENERAL: Patient is 52 yo intubated and sedated SKIN: Warm and dry. HEAD: Normocephalic. EYES: No scleral icterus. No injection or drainage. NECK: Supple, trachea midline. No JVD or lymphadenopathy. CARDIOVASCULAR: Regular rate and rhythm without murmurs, gallops, or rubs. RESPIRATORY: Breath sounds equal bilaterally. No accessory muscle use. GASTROINTESTINAL: Abdomen soft, non-tender, nondistended. MUSCULOSKELETAL: No cyanosis, or edema. Neuro: Intubated, sedated Assessment and Plan - Assessment and Plan Plan: NEURO/PSYCH: EtOH dependence - 147 on admission Delirium tremens Acute toxic metabolic encephalopathy secondary to hyperammonemia CT brain 10/30- for acute intracranial abnormality On propofol and Fentanyl infusion for sedation. Daily sedation vacation. Goal of RASS -2 Continue thiamine/folic acid/multivitamin IV bag 3 days. Continue to evaluate for DTs/seizure precaution 10/31 EEG: Encephalopathy, no epileptiform activity. Acetaminophen 650 mg p.o. every 8 hours as needed fever RESP: Acute respiratory failure Aspiration pneumonia Intubated 10/31 for airway protection. PRVC 14/550// Ventilator bundle, check ABG Albuterol/ipratropium aerosols every 4 hours with albuterol aerosols every 2 hours as needed CPAP trial as demario CV: Septic shock with hypotension Lactic acidemia Clinically appeared very volume depleted. Received 5 L of crystalloid in the form of bolus. We will continue LR at 150 mL/h. Wean off Levophed( down to 1 jaison) keep MAP>65mmHg Lactic acid cleared 1.0 For 2D echocardiogram Monitor trop ( trending down). on stress dose stress steroids- HC 50ml IV Q6 GI: Right/transverse mild colitis/acute Alcoholic hepatitis Hepatic steatosis Hepatosplenomegaly. Liver is 25 cm. Cholelithiasis On Lactulose 30ml BID, Continue tube feeds= Nepro @30ml/hr with goal rate 40ml/hr CT abdomen and pelvis demonstrates thickening of right colon extending into transverse colon. There is hepatomegaly and steatosis.. Clinical exam upon presentation was benign and did not appear c/w mesenteric ischemia. We will continue to monitor serial abdominal exams and lactic acid. GI is following FEN/RENAL: Acute kidney injury Insert Argueta to monitor intake and output every hour in the setting of shock and acute kidney injury. Replace electrolytes as needed No hydronephrosis on CT abdomen/pelvis. Monitor renal function, I/O's, avoid nephrotoxins Renal function is worse with Cr: 4.22 from 2.89 will likely need HD will discuss with Dr. Valadez d/c IVF, diurese with Lasix 40mg IV x1 ( fluid overload) ID: Gram-positive cocci bacteremia Cellulitis toes bilaterally Aspiration pneumonia, right lower lobe, present on admission He received piperacillin/tazobactam and vancomycin in the emergency department. Pertinent cultures Blood culture x 2 10/30 -gram-positive cocci/strep pyogenes - BC 11/01: pending Sputum 10/31 -pending Follow-up C diff, urine pneumococcal antigen, urine Legionella antigen, influenza a and B- all negative Obtain 2D echocardiogram rule out endocarditis Infectious disease is following- Dr. Segovia Abx per ID ( Zosyn changed to Unasyn) monitor for signs of infections ( Fever, WBC) MRI foot: No abscess, HEME: Acute coagulopathy DIC - Leukocytosis Macrocytic anemia Thrombocytopenia Monitor coags/CBC/platelets. There is no significant active bleeding at this time, Monitor CBC. coags, Fibrinogen level: 209, INR 1.9 Will give 2u FFP today for vascath placement ENDO: Acute hyperglycemia TSH 0.25. Low T3 at 1.57. Low normal T4. ? undiagnosed diabetes mellitus. Sliding-scale insulin with aspart insulin with Accu-Cheks every 6 hours to maintain euglycemia/medium regimen MSK: Elevated BMI Low back pain L5/S1 disc protrusion Pars defect L4/L5 Weight loss encouraged PROPH: SCDs for DVT prophylaxis. Avoid pharmacologic DVT prophylaxis at this time due to coagulopathy. Lansoprazole for stress ulcer prophylaxis ACCESS: Right IJ central venous line placed 10/31. Left radial arterial line placed 11/01. patient is critically ill with multiorgan injury resp failure, septic shock, renal failure, pneumonia. CCT 30 mins
[2017-11-02] MEDS: Senna/Docusate Sodium 8.6/50 MG Tablet PO SCH ×2 (08:24→20:16)
[2017-11-02] MEDS: rifAXIMin 550 MG Tablet PO SCH ×2 (08:24→20:16)
[2017-11-02] MEDS: Mupirocin 2% Nasal Oint Topical Syringe EACH NARE SCH ×2 (08:25→20:16)
[2017-11-02] MEDS: Hypromellose 0.3% Opth Gel 10 GM Bottle EACH EYE SCH ×2 (08:25→20:16)
[2017-11-02] MEDS: Chlorhexidine 0.12% Oral Kit 15 ML UDC OROPHARYNG SCH ×2 (08:25→20:16)
--- NOTE | 2017-11-02 09:29 | P.PNGI ---
Subjective Interval history: Pt remains on sedation, moves his eyebrows. Orally intubated. Now off pressors. TF running through OG, Nepro at 20 mL/hr. Still no BM <Abigail Murillo - Last Filed: 11/02/17 09:22> Physical Exam Vital signs: Vital Signs 11/01/17 10:00 11/01/17 10:49 11/01/17 11:00 Temperature Pulse Rate 118 H 121 H 120 H Respiratory Rate 13 13 19 Blood Pressure 99/57 L 118/63 Pulse Oximetry 99 100 96 11/01/17 11:45 11/01/17 12:00 11/01/17 13:00 Temperature 99.0 F Pulse Rate 117 H 117 H 116 H Respiratory Rate 16 14 13 Blood Pressure 103/58 L 100/59 L Pulse Oximetry 96 93 L 11/01/17 14:00 11/01/17 15:00 11/01/17 16:00 Temperature 100 F H Pulse Rate 112 H 110 H 112 H Respiratory Rate 15 20 20 Blood Pressure 95/55 L 99/62 L 113/64 Pulse Oximetry 94 L 95 95 11/01/17 16:10 11/01/17 17:00 11/01/17 17:01 Temperature Pulse Rate 113 H 113 H 113 H Respiratory Rate 18 23 18 Blood Pressure 114/71 Pulse Oximetry 94 L 97 96 11/01/17 18:00 11/01/17 19:00 11/01/17 20:00 Temperature 98.1 F Pulse Rate 112 H 105 H 103 H Respiratory Rate 15 14 14 Blood Pressure 109/70 98/59 L 96/59 L Pulse Oximetry 98 97 91 L 11/01/17 20:31 11/01/17 21:00 11/01/17 21:13 Temperature Pulse Rate 101 H 102 H 102 H Respiratory Rate 14 15 16 Blood Pressure 81/57 L 92/60 L Pulse Oximetry 91 L 93 L 92 L 11/01/17 22:00 11/01/17 23:00 11/02/17 00:00 Temperature 98.1 F Pulse Rate 100 H 102 H 99 H Respiratory Rate 14 22 39 H Blood Pressure 93/56 L 99/65 L 100/59 L Pulse Oximetry 93 L 89 L 93 L 11/02/17 00:09 11/02/17 02:00 11/02/17 02:56 Temperature Pulse Rate 97 H 92 H Respiratory Rate 14 14 Blood Pressure Pulse Oximetry 92 L 11/02/17 04:00 11/02/17 04:19 11/02/17 04:22 Temperature 98.1 F Pulse Rate 89 87 Respiratory Rate 39 H 14 14 Blood Pressure 130/59 L Pulse Oximetry 93 L 93 L 11/02/17 06:00 Temperature Pulse Rate 87 Respiratory Rate Blood Pressure 93/49 L Pulse Oximetry Intake & Output 11/01/17 11/02/17 11/02/17 18:59 06:59 18:59 Intake Total 2335 / 2335 2196.2 / 2196.2 Output Total 200 / 200 575 / 575 Balance 2135 / 2135 1621.2 / 1621.2 Weight 140 kg Intake: IV 2150 / 2150 1861.2 / 1861.2 LR 1000 mL Inj 1,000 ML @ 150 1000 / 1000 1000 / 1000 mls/hr IV.CONT .Q6H40M [facility] Rx#: [id number] Diprivan 1000 mg/100 ml Inj 1, 50 / 50 200 / 200 000 mg In 100 ml @ 5 MCG/KG/MIN 3.81 mls/hr IV.CONT TITRATE PRN Rx#:[id number] Unasyn Inj 3 GM In NS Inj 100 100 / 100 ML @ 200 mls/hr IV.SIG Q12H [facility] Rx#:[id number] MVI-12 Inj 10 ML Thiamine Inj 511.2 / 511.2 100 MG Folvite Inj 1 MG In NS Inj 500 ML @ 127.8 mls/hr IV. SIG Q24H [facility] Rx#:[id number] Levophed Inj 4 MG In NS Inj 246 500 / 500 ML @ 2 MCG/MIN 7.5 mls/hr IV. SIG TITRATE PRN Rx#:[id number] Zosyn 3.375 GM Premix 50 ML @ 100 / 100 50 / 50 100 mls/hr IV.SIG Q6H [facility] Rx#: [id number] fentaNYL 10 mcg/mL Premix Drip 500 / 500 2,500 mcg In 250 ml @ 50 MCG/HR 5 mls/hr IV.SIG TITRATE PRN Rx #:[id number] Oral 0 / 0 Tube Feeding 65 / 65 335 / 335 Water Bolus Amount 120 / 120 Output: Stool 300 / 300 Urine Amount (Catheter) 200 / 200 275 / 275 Indwelling Urethral Catheter 200 / 200 275 / 275 Other: # Bowel Movements 0 0 - Constitutional no acute distress - Routine HEENT Exam Head: Present: normocephalic, atraumatic Eye: Present: conjunctival icterus - Routine Respiratory Exam Present: patient mechanically ventilated - Routine Abdominal Exam Present: normoactive bowel sounds, distended, firm - Routine Skin Exam Present: dry, warm - Urinary Catheter Management Indwelling Urethral Catheter Cath placed during this visit: yes Reason for continuing: Hourly intake/output Insertion date: 10/31/17 Insertion time: 10:30 <Abigail Murillo - Last Filed: 11/02/17 09:22> Vital signs: Vital Signs 11/01/17 17:00 11/01/17 17:01 11/01/17 18:00 Temperature Pulse Rate 113 H 113 H 112 H Respiratory Rate 23 18 15 Blood Pressure 114/71 109/70 Pulse Oximetry 97 96 98 11/01/17 19:00 11/01/17 20:00 11/01/17 20:31 Temperature 98.1 F Pulse Rate 105 H 103 H 101 H Respiratory Rate 14 14 14 Blood Pressure 98/59 L 96/59 L Pulse Oximetry 97 91 L 91 L 11/01/17 21:00 11/01/17 21:13 11/01/17 22:00 Temperature Pulse Rate 102 H 102 H 100 H Respiratory Rate 15 16 14 Blood Pressure 81/57 L 92/60 L 93/56 L Pulse Oximetry 93 L 92 L 93 L 11/01/17 23:00 11/02/17 00:00 11/02/17 00:09 Temperature 98.1 F Pulse Rate 102 H 99 H 97 H Respiratory Rate 22 39 H 14 Blood Pressure 99/65 L 100/59 L Pulse Oximetry 89 L 93 L 92 L 11/02/17 01:00 11/02/17 02:00 11/02/17 02:56 Temperature Pulse Rate 94 H 92 H Respiratory Rate 43 H 14 14 Blood Pressure 90/56 L 98/60 L Pulse Oximetry 93 L 93 L 11/02/17 03:00 11/02/17 04:00 11/02/17 04:19 Temperature 98.1 F Pulse Rate 90 90 Respiratory Rate 14 14 14 Blood Pressure 102/64 105/61 Pulse Oximetry 93 L 92 L 93 L 11/02/17 04:22 11/02/17 04:26 11/02/17 05:00 Temperature Pulse Rate 87 90 89 Respiratory Rate 14 14 14 Blood Pressure 95/54 L 94/52 L Pulse Oximetry 97 94 L 11/02/17 06:00 11/02/17 07:00 11/02/17 08:00 Temperature 97.8 F Pulse Rate 87 87 87 Respiratory Rate 14 14 14 Blood Pressure 96/58 L 97/58 L 98/60 L Pulse Oximetry 93 L 94 L 94 L 11/02/17 08:50 11/02/17 09:00 11/02/17 10:00 Temperature Pulse Rate 92 H 93 H 96 H Respiratory Rate 14 14 14 Blood Pressure 108/69 109/61 Pulse Oximetry 94 L 93 L 93 L 11/02/17 11:00 11/02/17 11:33 11/02/17 11:58 Temperature 97.8 F Pulse Rate 96 H 97 H Respiratory Rate 14 14 16 Blood Pressure 111/66 108/56 L Pulse Oximetry 93 L 96 11/02/17 12:00 11/02/17 13:00 11/02/17 13:50 Temperature 98.2 F 98.2 F Pulse Rate 103 H 130 H 128 H Respiratory Rate 11 L 20 20 Blood Pressure 113/67 105/58 L 83/48 L Pulse Oximetry 95 92 L 11/02/17 14:00 11/02/17 15:00 11/02/17 15:26 Temperature Pulse Rate 128 H 129 H Respiratory Rate 20 20 20 Blood Pressure 95/64 L 101/55 L Pulse Oximetry 93 L 95 95 Intake & Output 11/01/17 11/02/17 11/02/17 18:59 06:59 18:59 Intake Total 2335 / 2335 2196.2 / 2196.2 250 / 250 Output Total 200 / 200 575 / 575 Balance 2135 / 2135 1621.2 / 1621.2 250 / 250 Weight 140 kg Intake: IV 2150 / 2150 1861.2 / 1861.2 250 / 250 LR 1000 mL Inj 1,000 ML @ 150 1000 / 1000 1000 / 1000 mls/hr IV.CONT .Q6H40M [facility] Rx#: [id number] Diprivan 1000 mg/100 ml Inj 1, 50 / 50 200 / 200 000 mg In 100 ml @ 5 MCG/KG/MIN 3.81 mls/hr IV.CONT TITRATE PRN Rx#:[id number] Unasyn Inj 3 GM In NS Inj 100 100 / 100 ML @ 200 mls/hr IV.SIG Q12H [facility] Rx#:[id number] MVI-12 Inj 10 ML Thiamine Inj 511.2 / 511.2 100 MG Folvite Inj 1 MG In NS Inj 500 ML @ 127.8 mls/hr IV. SIG Q24H [facility] Rx#:[id number] Levophed Inj 4 MG In NS Inj 246 500 / 500 ML @ 2 MCG/MIN 7.5 mls/hr IV. SIG TITRATE PRN Rx#:[id number] Zosyn 3.375 GM Premix 50 ML @ 100 / 100 50 / 50 100 mls/hr IV.SIG Q6H [facility] Rx#: [id number] fentaNYL 10 mcg/mL Premix Drip 500 / 500 250 / 250 2,500 mcg In 250 ml @ 50 MCG/HR 5 mls/hr IV.SIG TITRATE PRN Rx #:[id number] Oral 0 / 0 Tube Feeding 65 / 65 335 / 335 Water Bolus Amount 120 / 120 Intake (Blood Product) Amt 0 / 0 Liquid Plasma Cp2d Unit 0 / 0 [id number] Liquid Plasma Cp2d Unit 0 / 0 [id number] Output: Stool 300 / 300 Urine Amount (Catheter) 200 / 200 275 / 275 Indwelling Urethral Catheter 200 / 200 275 / 275 Other: # Bowel Movements 0 0 - Urinary Catheter Management Indwelling Urethral Catheter Cath placed during this visit: no <Michael Cordero - Last Filed: 11/02/17 16:49> Results - Labs CBC & Chem 7: 11/02/17 04:00 11/02/17 04:00 Laboratory Results - last 24 hr 11/01/17 11/01/17 11/01/17 12:34 12:45 12:45 WBC RBC Hgb Hct MCV MCH MCHC RDW Plt Count MPV Prelim Diff (Auto) Neut % (Auto) Lymph % (Auto) Chambers % (Auto) Eos % (Auto) Baso % (Auto) Neut # (Auto) Lymph # (Auto) Chambers # (Auto) Eos # (Auto) Baso # (Auto) WBC Differential Seg Neuts % (Manual) Band Neuts % (Manual) Lymphocytes % (Manual) Monocytes % (Manual) Abs Neuts (Manual) Differential Comment Toxic Granulation Dohle Bodies Platelet Estimate Platelet Morphology PT INR Sodium Potassium Chloride Carbon Dioxide Anion Gap BUN Creatinine Estimated GFR POC Glucose 122 H Random Glucose Lactic Acid 5.2 H* Calcium Prot Corrected Calcium Phosphorus Total Bilirubin AST ALT Alkaline Phosphatase Troponin I Total Protein Albumin Urine Eosinophils None seen Urine Osmolality Ur Random Creatinine Ur Random Sodium Random Vancomycin Complement C3 Complement C4 11/01/17 11/01/17 11/01/17 12:45 12:45 12:45 WBC RBC Hgb Hct MCV MCH MCHC RDW Plt Count MPV Prelim Diff (Auto) Neut % (Auto) Lymph % (Auto) Chambers % (Auto) Eos % (Auto) Baso % (Auto) Neut # (Auto) Lymph # (Auto) Chambers # (Auto) Eos # (Auto) Baso # (Auto) WBC Differential Seg Neuts % (Manual) Band Neuts % (Manual) Lymphocytes % (Manual) Monocytes % (Manual) Abs Neuts (Manual) Differential Comment Toxic Granulation Dohle Bodies Platelet Estimate Platelet Morphology PT INR Sodium Potassium Chloride Carbon Dioxide Anion Gap BUN Creatinine Estimated GFR POC Glucose Random Glucose Lactic Acid Cancelled Calcium Prot Corrected Calcium Phosphorus Total Bilirubin AST ALT Alkaline Phosphatase Troponin I Total Protein Albumin Urine Eosinophils Urine Osmolality 315 Ur Random Creatinine 268 Ur Random Sodium 9 Random Vancomycin Complement C3 Complement C4 11/01/17 11/01/17 11/01/17 18:05 18:40 21:28 WBC RBC Hgb Hct MCV MCH MCHC RDW Plt Count MPV Prelim Diff (Auto) Neut % (Auto) Lymph % (Auto) Chambers % (Auto) Eos % (Auto) Baso % (Auto) Neut # (Auto) Lymph # (Auto) Chambers # (Auto) Eos # (Auto) Baso # (Auto) WBC Differential Seg Neuts % (Manual) Band Neuts % (Manual) Lymphocytes % (Manual) Monocytes % (Manual) Abs Neuts (Manual) Differential Comment Toxic Granulation Dohle Bodies Platelet Estimate Platelet Morphology PT INR Sodium Potassium Chloride Carbon Dioxide Anion Gap BUN Creatinine Estimated GFR POC Glucose 134 H Random Glucose Lactic Acid 1.9 Calcium Prot Corrected Calcium Phosphorus Total Bilirubin AST ALT Alkaline Phosphatase Troponin I 0.53 H Total Protein Albumin Urine Eosinophils Urine Osmolality Ur Random Creatinine Ur Random Sodium Random Vancomycin Complement C3 Complement C4 11/01/17 11/02/17 11/02/17 23:38 04:00 04:00 WBC RBC Hgb Hct MCV MCH MCHC RDW Plt Count MPV Prelim Diff (Auto) Neut % (Auto) Lymph % (Auto) Chambers % (Auto) Eos % (Auto) Baso % (Auto) Neut # (Auto) Lymph # (Auto) Chambers # (Auto) Eos # (Auto) Baso # (Auto) WBC Differential Seg Neuts % (Manual) Band Neuts % (Manual) Lymphocytes % (Manual) Monocytes % (Manual) Abs Neuts (Manual) Differential Comment Toxic Granulation Dohle Bodies Platelet Estimate Platelet Morphology PT 18.9 H INR 1.9 Sodium Potassium Chloride Carbon Dioxide Anion Gap BUN Creatinine Estimated GFR POC Glucose 140 H Random Glucose Lactic Acid 1.0 Calcium Prot Corrected Calcium Phosphorus Total Bilirubin AST ALT Alkaline Phosphatase Troponin I Total Protein Albumin Urine Eosinophils Urine Osmolality Ur Random Creatinine Ur Random Sodium Random Vancomycin Complement C3 Complement C4 11/02/17 11/02/17 11/02/17 04:00 04:00 05:17 WBC 17.5 H RBC 3.50 L Hgb 12.0 L Hct 36.7 L MCV 104.9 H MCH 34.3 H MCHC 32.7 RDW 15.2 Plt Count 48 L MPV 10.8 Prelim Diff (Auto) Slide review pending Neut % (Auto) 85.8 H Lymph % (Auto) 5.5 L Chambers % (Auto) 6.8 Eos % (Auto) 1.7 Baso % (Auto) 0.2 Neut # (Auto) 15.0 H Lymph # (Auto) 1.0 Chambers # (Auto) 1.2 H Eos # (Auto) 0.3 Baso # (Auto) 0.0 WBC Differential Manual diff final Seg Neuts % (Manual) 66 Band Neuts % (Manual) 24 H Lymphocytes % (Manual) 5 L Monocytes % (Manual) 5 Abs Neuts (Manual) 15.8 H Differential Comment . Toxic Granulation 1+ H Dohle Bodies Present H Platelet Estimate Low L Platelet Morphology Enlarged H PT INR Sodium 140 Potassium 5.3 H Chloride 105 Carbon Dioxide 26.3 Anion Gap 9 BUN 43 H Creatinine 4.22 H Estimated GFR 15 L POC Glucose 136 H Random Glucose 146 H Lactic Acid Calcium 6.7 L* Prot Corrected Calcium 6.9 L* Phosphorus 7.3 H D Total Bilirubin 11.0 H AST 173 H ALT 38 Alkaline Phosphatase 67 Troponin I 0.42 H Total Protein 6.7 Albumin 2.0 L Urine Eosinophils Urine Osmolality Ur Random Creatinine Ur Random Sodium Random Vancomycin 33.0 Complement C3 62 L Complement C4 15 Microbiology 10/31/17 04:55 Sputum - Endotracheal Gram Stain - Final 10/31/17 04:55 Sputum - Endotracheal Sputum Culture - Final Group A beta (Strep pyogenes) 10/30/17 17:50 Blood - Peripheral Aerobic Blood Culture - Preliminary Group A beta (Strep pyogenes) 10/30/17 17:50 Blood - Peripheral Anaerobic Blood Culture - Preliminary Group A beta (Strep pyogenes) 10/30/17 17:50 Blood - Peripheral Aerobic Blood Culture - Preliminary Group A beta (Strep pyogenes) Staphylococcus aureus 10/30/17 17:50 Blood - Peripheral Anaerobic Blood Culture - Preliminary Group A beta (Strep pyogenes) - Imaging Impressions Abdomen X-Ray 11/01/17 10:38 CONCLUSION: Nonobstructive bowel gas pattern. <Abigail Murillo - Last Filed: 11/02/17 09:22> - Labs CBC & Chem 7: 11/02/17 04:00 11/02/17 04:00 Laboratory Results - last 24 hr 11/01/17 11/01/17 11/01/17 12:45 12:45 18:05 WBC RBC Hgb Hct MCV MCH MCHC RDW Plt Count MPV Prelim Diff (Auto) Neut % (Auto) Lymph % (Auto) Chambers % (Auto) Eos % (Auto) Baso % (Auto) Neut # (Auto) Lymph # (Auto) Chambers # (Auto) Eos # (Auto) Baso # (Auto) WBC Differential Seg Neuts % (Manual) Band Neuts % (Manual) Lymphocytes % (Manual) Monocytes % (Manual) Abs Neuts (Manual) Differential Comment Toxic Granulation Dohle Bodies Platelet Estimate Platelet Morphology PT INR Puncture Site Patient Temperature O2 Saturation ABG pH ABG pCO2 ABG pO2 ABG HCO3 ABG O2 Content ABG Base Excess ABG Methemoglobin Hemoglobin Carboxyhemoglobin O2 Delivery Device Vent Setting Inspired O2 Critical Value Sodium Potassium Chloride Carbon Dioxide Anion Gap BUN Creatinine Estimated GFR POC Glucose 134 H Random Glucose Lactic Acid Calcium Prot Corrected Calcium Phosphorus Total Bilirubin AST ALT Alkaline Phosphatase Troponin I Total Protein Albumin Urine Osmolality 315 Ur Random Creatinine 268 Ur Random Sodium 9 Random Vancomycin Complement C3 Complement C4 Blood Type Blood Bank Comment 11/01/17 11/01/17 11/01/17 18:40 21:28 23:38 WBC RBC Hgb Hct MCV MCH MCHC RDW Plt Count MPV Prelim Diff (Auto) Neut % (Auto) Lymph % (Auto) Chambers % (Auto) Eos % (Auto) Baso % (Auto) Neut # (Auto) Lymph # (Auto) Chambers # (Auto) Eos # (Auto) Baso # (Auto) WBC Differential Seg Neuts % (Manual) Band Neuts % (Manual) Lymphocytes % (Manual) Monocytes % (Manual) Abs Neuts (Manual) Differential Comment Toxic Granulation Dohle Bodies Platelet Estimate Platelet Morphology PT INR Puncture Site Patient Temperature O2 Saturation ABG pH ABG pCO2 ABG pO2 ABG HCO3 ABG O2 Content ABG Base Excess ABG Methemoglobin Hemoglobin Carboxyhemoglobin O2 Delivery Device Vent Setting Inspired O2 Critical Value Sodium Potassium Chloride Carbon Dioxide Anion Gap BUN Creatinine Estimated GFR POC Glucose 140 H Random Glucose Lactic Acid 1.9 Calcium Prot Corrected Calcium Phosphorus Total Bilirubin AST ALT Alkaline Phosphatase Troponin I 0.53 H Total Protein Albumin Urine Osmolality Ur Random Creatinine Ur Random Sodium Random Vancomycin Complement C3 Complement C4 Blood Type Blood Bank Comment 11/02/17 11/02/17 11/02/17 04:00 04:00 04:00 WBC RBC Hgb Hct MCV MCH MCHC RDW Plt Count MPV Prelim Diff (Auto) Neut % (Auto) Lymph % (Auto) Chambers % (Auto) Eos % (Auto) Baso % (Auto) Neut # (Auto) Lymph # (Auto) Chambers # (Auto) Eos # (Auto) Baso # (Auto) WBC Differential Seg Neuts % (Manual) Band Neuts % (Manual) Lymphocytes % (Manual) Monocytes % (Manual) Abs Neuts (Manual) Differential Comment Toxic Granulation Dohle Bodies Platelet Estimate Platelet Morphology PT 18.9 H INR 1.9 Puncture Site Patient Temperature O2 Saturation ABG pH ABG pCO2 ABG pO2 ABG HCO3 ABG O2 Content ABG Base Excess ABG Methemoglobin Hemoglobin Carboxyhemoglobin O2 Delivery Device Vent Setting Inspired O2 Critical Value Sodium 140 Potassium 5.3 H Chloride 105 Carbon Dioxide 26.3 Anion Gap 9 BUN 43 H Creatinine 4.22 H Estimated GFR 15 L POC Glucose Random Glucose 146 H Lactic Acid 1.0 Calcium 6.7 L* Prot Corrected Calcium 6.9 L* Phosphorus 7.3 H D Total Bilirubin 11.0 H AST 173 H ALT 38 Alkaline Phosphatase 67 Troponin I 0.42 H Total Protein 6.7 Albumin 2.0 L Urine Osmolality Ur Random Creatinine Ur Random Sodium Random Vancomycin 33.0 Complement C3 62 L Complement C4 15 Blood Type Blood Bank Comment 11/02/17 11/02/17 11/02/17 04:00 05:17 08:30 WBC 17.5 H RBC 3.50 L Hgb 12.0 L Hct 36.7 L MCV 104.9 H MCH 34.3 H MCHC 32.7 RDW 15.2 Plt Count 48 L MPV 10.8 Prelim Diff (Auto) Slide review pending Neut % (Auto) 85.8 H Lymph % (Auto) 5.5 L Chambers % (Auto) 6.8 Eos % (Auto) 1.7 Baso % (Auto) 0.2 Neut # (Auto) 15.0 H Lymph # (Auto) 1.0 Chambers # (Auto) 1.2 H Eos # (Auto) 0.3 Baso # (Auto) 0.0 WBC Differential Manual diff final Seg Neuts % (Manual) 66 Band Neuts % (Manual) 24 H Lymphocytes % (Manual) 5 L Monocytes % (Manual) 5 Abs Neuts (Manual) 15.8 H Differential Comment . Toxic Granulation 1+ H Dohle Bodies Present H Platelet Estimate Low L Platelet Morphology Enlarged H PT INR Puncture Site Patient Temperature O2 Saturation ABG pH ABG pCO2 ABG pO2 ABG HCO3 ABG O2 Content ABG Base Excess ABG Methemoglobin Hemoglobin Carboxyhemoglobin O2 Delivery Device Vent Setting Inspired O2 Critical Value Sodium Potassium Chloride Carbon Dioxide Anion Gap BUN Creatinine Estimated GFR POC Glucose 136 H Random Glucose Lactic Acid Calcium Prot Corrected Calcium Phosphorus Total Bilirubin AST ALT Alkaline Phosphatase Troponin I Total Protein Albumin Urine Osmolality Ur Random Creatinine Ur Random Sodium Random Vancomycin Complement C3 Complement C4 Blood Type B Positive Blood Bank Comment 11/02/17 11/02/17 11/02/17 09:48 11:19 14:48 WBC RBC Hgb Hct MCV MCH MCHC RDW Plt Count MPV Prelim Diff (Auto) Neut % (Auto) Lymph % (Auto) Chambers % (Auto) Eos % (Auto) Baso % (Auto) Neut # (Auto) Lymph # (Auto) Chambers # (Auto) Eos # (Auto) Baso # (Auto) WBC Differential Seg Neuts % (Manual) Band Neuts % (Manual) Lymphocytes % (Manual) Monocytes % (Manual) Abs Neuts (Manual) Differential Comment Toxic Granulation Dohle Bodies Platelet Estimate Platelet Morphology PT INR Puncture Site Art line Art line Patient Temperature 98.6 98.6 O2 Saturation 90 95 ABG pH 7.22 L* 7.30 L ABG pCO2 60 H* 46 H ABG pO2 77 102 ABG HCO3 24 22 ABG O2 Content 15.1 20.2 H ABG Base Excess -2.9 L -3.2 L ABG Methemoglobin 1.2 1.2 Hemoglobin 11.8 L 15.0 Carboxyhemoglobin 0.9 0.8 O2 Delivery Device Ventilator Ventilator Vent Setting Prvc/ac Prvc/ac Inspired O2 40 40 Critical Value Yes No Sodium Potassium Chloride Carbon Dioxide Anion Gap BUN Creatinine Estimated GFR POC Glucose 141 H Random Glucose Lactic Acid Calcium Prot Corrected Calcium Phosphorus Total Bilirubin AST ALT Alkaline Phosphatase Troponin I Total Protein Albumin Urine Osmolality Ur Random Creatinine Ur Random Sodium Random Vancomycin Complement C3 Complement C4 Blood Type Blood Bank Comment Microbiology 10/30/17 17:50 Blood - Peripheral Aerobic Blood Culture - Preliminary Group A beta (Strep pyogenes) 10/30/17 17:50 Blood - Peripheral Anaerobic Blood Culture - Preliminary Group A beta (Strep pyogenes) 10/30/17 17:50 Blood - Peripheral Aerobic Blood Culture - Preliminary Group A beta (Strep pyogenes) Staphylococcus aureus 10/30/17 17:50 Blood - Peripheral Anaerobic Blood Culture - Preliminary Group A beta (Strep pyogenes) 11/01/17 06:39 Blood - Peripheral Aerobic Blood Culture - Preliminary No growth in 1 day 11/01/17 06:39 Blood - Peripheral Anaerobic Blood Culture - Final QNS - See aerobic report. 11/01/17 04:40 Blood - Peripheral Aerobic Blood Culture - Preliminary No growth in 1 day 11/01/17 04:40 Blood - Peripheral Anaerobic Blood Culture - Preliminary No growth in 1 day 10/31/17 04:55 Sputum - Endotracheal Gram Stain - Final 10/31/17 04:55 Sputum - Endotracheal Sputum Culture - Final Group A beta (Strep pyogenes) - Imaging Impressions Chest X-Ray 11/02/17 00:00 CONCLUSION: Bilateral central lines including a new left Vas-Cath in good position. Bibasilar areas of consolidation or atelectasis. <Michael Cordero - Last Filed: 11/02/17 16:49> Assessment and Plan - Plan Assessment: - Colitis As stated in HPI, pt currently sedated and intubated, however was responsive on arrival and therefore Dr. Abdullahi was able to obtain some history. Pt did report complaints of diarrhea, unsure how much or for how long. Did deny hematochezia and melena. Denied any abdominal pain and was not tender on exam. CT abdomen and pelvis W IV contrast --> Mild colitis predominantly on the right side with trace free fluid and some inflammatory changes on the right. No bowel obstruction. No free air. Multiple layering gallstones. Subsegmental basilar airspace consolidation in the lungs. Fatty liver enlarged to 25 cm. - ETOH abuse- Pt reportedly had been binge drinking since Monday Labs consistent with ETOH- DF-[address] Abdullahi, will hold on steroids given septic shock, Pentoxifylline not an option-pt has OG and this can not be crushed (10/31) AST-173 ALT-36 T bili-6.5 Alk phos-184 ? cirrhosis- Thrombocytopenia (platelets-70) Coagulopathy (INR 2.1) Hypoalbuminemia (albumin-2.5) Ammonia-44 - Septic shock - leukocytosis, elevated lactic acid, febrile- Pt requiring pressors at this time Unknown source. cellulitis on feet vs PNA vs colitis (11/01) Pt remains sedated and mechanically ventilated via ETT. OG to LIWS with brown colored output. Per RN no BM, therefore stools studies still pending. Abdomen appears more distended and firm today. Ammonia elevated, on Lactulose, will add Xifaxan. (11/02) Pt remains sedated and orally intubated. Now off pressors. Minimal UOP and renal function declining, plan for vascath placement today. Pt now on TF, Nepro, at 20 mL/hr. Still with no BM. Bili continues to trend up. Solumedrol on hold due to sepsis. Pentoxifylline can not be given through OG. KUB from yesterday noted --> Nonobstructive bowel gas pattern Plan: Reglan ordered by [facility] Avoid hepatotoxins No steroids at this time because of septic shock Can not do Pentoxifylline because this can not be crushed and pt has OG Lactulose Monitor labs Alcohol withdraw protocol Continue with supportive care ? repeat CT vs flex sig depending on course Further recommendations to follow Pt has been seen and examined by myself and Dr. Cordero and this note is written on his behalf <Abigail Murillo - Last Filed: 11/02/17 09:22> - Plan Seen and examined with [employer]ATOR< still intubated. NO bleeding, no diarrhea. Solid stools so c diff cancelled. Stool panel ordered. - Attending Attestation The exam, history, and the medical decision-making described in the above note were completed with the assistance of the mid-level provider. I reviewed and agree with the findings presented. I attest that I had a [id number] encounter with the patient on the same day, and personally performed and documented my assessment and findings in the medical record. <Michael Cordero - Last Filed: 11/02/17 16:49>
[2017-11-02 10:11] LABS: ABG Base Excess -2.9 mmol/L (-2-2); ABG PCO2 60 mmHg (38-42); ABG PO2 77 mmHG (61-120)
[2017-11-02] MEDS ORDERED: Sod Chloride 0.9% Inj 1,000 ML IV.CONT PRN (11:02)
[2017-11-02] MEDS ORDERED: Heparin 10,000 UNITS/10 ML Vial (for IV use) OTHER PRN (11:02)
[2017-11-02] MEDS ORDERED: Sod Chloride 0.9% Inj 1,000 ML OTHER PRN ×2 (11:02)
[2017-11-02] MEDS ORDERED: Acetaminophen 325 MG Tablet PO PRN (11:02)
[2017-11-02] MEDS ORDERED: Gelatin 12 MM/7 MM Topical Foam TOPICAL PRN (11:02)
--- NOTE | 2017-11-02 11:59 | P.PNNP ---
Subjective Interval history: Remains intubated and sedated. Kidney function continues to decline with a creatinine of 4.22 from 2.89, Potassium level of 5.3. <Sharon Sultana - Last Filed: 11/02/17 11:42> Physical Exam Vital signs: Vital Signs 11/01/17 11:45 11/01/17 12:00 11/01/17 13:00 Temperature 99.0 F Pulse Rate 117 H 117 H 116 H Respiratory Rate 16 14 13 Blood Pressure 103/58 L 100/59 L Pulse Oximetry 96 93 L 11/01/17 14:00 11/01/17 15:00 11/01/17 16:00 Temperature 100 F H Pulse Rate 112 H 110 H 112 H Respiratory Rate 15 20 20 Blood Pressure 95/55 L 99/62 L 113/64 Pulse Oximetry 94 L 95 95 11/01/17 16:10 11/01/17 17:00 11/01/17 17:01 Temperature Pulse Rate 113 H 113 H 113 H Respiratory Rate 18 23 18 Blood Pressure 114/71 Pulse Oximetry 94 L 97 96 11/01/17 18:00 11/01/17 19:00 11/01/17 20:00 Temperature 98.1 F Pulse Rate 112 H 105 H 103 H Respiratory Rate 15 14 14 Blood Pressure 109/70 98/59 L 96/59 L Pulse Oximetry 98 97 91 L 11/01/17 20:31 11/01/17 21:00 11/01/17 21:13 Temperature Pulse Rate 101 H 102 H 102 H Respiratory Rate 14 15 16 Blood Pressure 81/57 L 92/60 L Pulse Oximetry 91 L 93 L 92 L 11/01/17 22:00 11/01/17 23:00 11/02/17 00:00 Temperature 98.1 F Pulse Rate 100 H 102 H 99 H Respiratory Rate 14 22 39 H Blood Pressure 93/56 L 99/65 L 100/59 L Pulse Oximetry 93 L 89 L 93 L 11/02/17 00:09 11/02/17 02:00 11/02/17 02:56 Temperature Pulse Rate 97 H 92 H Respiratory Rate 14 14 Blood Pressure Pulse Oximetry 92 L 11/02/17 04:00 11/02/17 04:19 11/02/17 04:22 Temperature 98.1 F Pulse Rate 89 87 Respiratory Rate 39 H 14 14 Blood Pressure 130/59 L Pulse Oximetry 93 L 93 L 11/02/17 06:00 11/02/17 08:50 11/02/17 11:33 Temperature 97.8 F Pulse Rate 87 92 H 97 H Respiratory Rate 14 14 Blood Pressure 93/49 L 108/56 L Pulse Oximetry 94 L Intake & Output 11/01/17 11/02/17 11/02/17 18:59 06:59 18:59 Intake Total 2335 / 2335 2196.2 / 2196.2 250 / 250 Output Total 200 / 200 575 / 575 Balance 2135 / 2135 1621.2 / 1621.2 250 / 250 Weight 140 kg Intake: IV 2150 / 2150 1861.2 / 1861.2 250 / 250 LR 1000 mL Inj 1,000 ML @ 150 1000 / 1000 1000 / 1000 mls/hr IV.CONT .Q6H40M [facility] Rx#: [id number] Diprivan 1000 mg/100 ml Inj 1, 50 / 50 200 / 200 000 mg In 100 ml @ 5 MCG/KG/MIN 3.81 mls/hr IV.CONT TITRATE PRN Rx#:[id number] Unasyn Inj 3 GM In NS Inj 100 100 / 100 ML @ 200 mls/hr IV.SIG Q12H [facility] Rx#:[id number] MVI-12 Inj 10 ML Thiamine Inj 511.2 / 511.2 100 MG Folvite Inj 1 MG In NS Inj 500 ML @ 127.8 mls/hr IV. SIG Q24H [facility] Rx#:[id number] Levophed Inj 4 MG In NS Inj 246 500 / 500 ML @ 2 MCG/MIN 7.5 mls/hr IV. SIG TITRATE PRN Rx#:[id number] Zosyn 3.375 GM Premix 50 ML @ 100 / 100 50 / 50 100 mls/hr IV.SIG Q6H [facility] Rx#: [id number] fentaNYL 10 mcg/mL Premix Drip 500 / 500 250 / 250 2,500 mcg In 250 ml @ 50 MCG/HR 5 mls/hr IV.SIG TITRATE PRN Rx #:[id number] Oral 0 / 0 Tube Feeding 65 / 65 335 / 335 Water Bolus Amount 120 / 120 Intake (Blood Product) Amt 0 / 0 Liquid Plasma Cp2d Unit 0 / 0 [id number] Output: Stool 300 / 300 Urine Amount (Catheter) 200 / 200 275 / 275 Indwelling Urethral Catheter 200 / 200 275 / 275 Other: # Bowel Movements 0 0 Narrative: GENERAL: Intubated and sedated SKIN: Warm and dry. HEAD: Normocephalic. EYES: No scleral icterus. No injection or drainage. NECK: Supple, trachea midline. No JVD or lymphadenopathy. CARDIOVASCULAR: Regular rate and rhythm without murmurs, gallops, or rubs. RESPIRATORY: Breath sounds decreased bilaterally. No accessory muscle use. Intubated GASTROINTESTINAL: Abdomen soft, non-tender, large. OG tube GENITOURINARY: Indwelling Anderson catheter, small amount of dark colored urine MUSCULOSKELETAL: No cyanosis, Mild generalized edema. - Urinary Catheter Management Indwelling Urethral Catheter Cath placed during this visit: yes Reason for continuing: Hourly intake/output Insertion date: 10/31/17 Insertion time: 10:30 <Sharon Sultana - Last Filed: 11/02/17 11:42> Vital signs: Vital Signs 11/01/17 20:00 11/01/17 20:31 11/01/17 21:00 Temperature 98.1 F Pulse Rate 103 H 101 H 102 H Respiratory Rate 14 14 15 Blood Pressure 96/59 L 81/57 L Pulse Oximetry 91 L 91 L 93 L 11/01/17 21:13 11/01/17 22:00 11/01/17 23:00 Temperature Pulse Rate 102 H 100 H 102 H Respiratory Rate 16 14 22 Blood Pressure 92/60 L 93/56 L 99/65 L Pulse Oximetry 92 L 93 L 89 L 11/02/17 00:00 11/02/17 00:09 11/02/17 01:00 Temperature 98.1 F Pulse Rate 99 H 97 H 94 H Respiratory Rate 39 H 14 43 H Blood Pressure 100/59 L 90/56 L Pulse Oximetry 93 L 92 L 93 L 11/02/17 02:00 11/02/17 02:56 11/02/17 03:00 Temperature Pulse Rate 92 H 90 Respiratory Rate 14 14 14 Blood Pressure 98/60 L 102/64 Pulse Oximetry 93 L 93 L 11/02/17 04:00 11/02/17 04:19 11/02/17 04:22 Temperature 98.1 F Pulse Rate 90 87 Respiratory Rate 14 14 14 Blood Pressure 105/61 Pulse Oximetry 92 L 93 L 11/02/17 04:26 11/02/17 05:00 11/02/17 06:00 Temperature Pulse Rate 90 89 87 Respiratory Rate 14 14 14 Blood Pressure 95/54 L 94/52 L 96/58 L Pulse Oximetry 97 94 L 93 L 11/02/17 07:00 11/02/17 08:00 11/02/17 08:50 Temperature 97.8 F Pulse Rate 87 87 92 H Respiratory Rate 14 14 14 Blood Pressure 97/58 L 98/60 L Pulse Oximetry 94 L 94 L 94 L 11/02/17 09:00 11/02/17 10:00 11/02/17 11:00 Temperature Pulse Rate 93 H 96 H 96 H Respiratory Rate 14 14 14 Blood Pressure 108/69 109/61 111/66 Pulse Oximetry 93 L 93 L 93 L 11/02/17 11:33 11/02/17 11:58 11/02/17 12:00 Temperature 97.8 F 98.2 F Pulse Rate 97 H 103 H Respiratory Rate 14 16 11 L Blood Pressure 108/56 L 113/67 Pulse Oximetry 96 95 11/02/17 13:00 11/02/17 13:50 11/02/17 14:00 Temperature 98.2 F Pulse Rate 130 H 128 H 128 H Respiratory Rate 20 20 20 Blood Pressure 105/58 L 83/48 L 95/64 L Pulse Oximetry 92 L 93 L 11/02/17 15:00 11/02/17 15:26 11/02/17 16:00 Temperature 98.0 F Pulse Rate 129 H Respiratory Rate 20 20 Blood Pressure 101/55 L Pulse Oximetry 95 95 Intake & Output 11/02/17 11/02/17 11/03/17 06:59 18:59 06:59 Intake Total 2196.2 / 2196.2 250 / 250 Output Total 575 / 575 1999 Balance 1621.2 / 1621.2 -1750 / -1750 Weight 140 kg Intake: IV 1861.2 / 1861.2 250 / 250 LR 1000 mL Inj 1,000 ML @ 150 1000 / 1000 mls/hr IV.CONT .Q6H40M [facility] Rx#: [id number] Diprivan 1000 mg/100 ml Inj 1, 200 / 200 000 mg In 100 ml @ 5 MCG/KG/MIN 3.81 mls/hr IV.CONT TITRATE PRN Rx#:[id number] Unasyn Inj 3 GM In NS Inj 100 100 / 100 ML @ 200 mls/hr IV.SIG Q12H [facility] Rx#:[id number] MVI-12 Inj 10 ML Thiamine Inj 511.2 / 511.2 100 MG Folvite Inj 1 MG In NS Inj 500 ML @ 127.8 mls/hr IV. SIG Q24H [facility] Rx#:[id number] Zosyn 3.375 GM Premix 50 ML @ 50 / 50 100 mls/hr IV.SIG Q6H [facility] Rx#: [id number] fentaNYL 10 mcg/mL Premix Drip 250 / 250 2,500 mcg In 250 ml @ 50 MCG/HR 5 mls/hr IV.SIG TITRATE PRN Rx #:[id number] Tube Feeding 335 / 335 Intake (Blood Product) Amt 0 / 0 Liquid Plasma Cp2d Unit 0 / 0 [id number] Liquid Plasma Cp2d Unit 0 / 0 [id number] Output: Stool 300 / 300 Hemodialysis Amount 1999 / 1999 Urine Amount (Catheter) 275 / 275 Indwelling Urethral Catheter 275 / 275 Other: # Bowel Movements 0 - Urinary Catheter Management Indwelling Urethral Catheter Cath placed during this visit: no <Crystal Valadez - Last Filed: 11/02/17 19:12> Assessment and Plan - Assessment (1) Acute kidney injury Code(s): N17.9 - Acute kidney failure, unspecified Status: Acute Plan: Acute kidney injury with a creatinine initially at 1.33 and at day of consult 2.89 NANETTE most likely ATN from hypotension possible vancomycin toxicity with vancomycin level of 30.9. No baseline creatinine available. CT of abdomen with unremarkable kidneys. Urine negative for proteinuria Creatinine 1.33->1.95 ->2.89 ->4.22 today. Oliguric with urinary output decreasing at 450 ml/24 hours Hyperkalemia with potassium level of 5.3 - dialysis today Hypocalcemia- replacement given Monitor strict I+O, continue indwelling anderson catheter Avoid nephrotoxins including aminoglycosides and IV contrast Continue to monitor urinary output and BMP Proceeding with hemodialysis with increase in creatinine and drop in urinary output, vas cath per cc will remove fluid as tolerated. Repeat in AM <Sharon Sultana - Last Filed: 11/02/17 11:42> - Assessment (1) Acute kidney injury Code(s): N17.9 - Acute kidney failure, unspecified Status: Acute - Attending Attestation Patient seen and examine, agree with above. Urine out put is low. To start HD, after the Vascath. <Crystal Valadez - Last Filed: 11/02/17 19:12>
--- NOTE | 2017-11-02 13:22 | XR ---
EXAM DATE: 11/02/2017 1:09 PM EDT AGE/SEX: 52 years / Male INDICATIONS: Vascular catheter placement. CLINICAL DATA: This is the patient's initial encounter. Patient reports that signs and symptoms have been present for 1 day and indicates a pain score of Nonresponsive. MEDICAL/SURGICAL HISTORY: None. None. COMPARISON: C, CHEST 1V SINGLE AP, 11/01/2017. . FINDINGS: The ET tube, NG tube, and bilateral internal jugular central lines are well placed. The left central line is new. Tip is seen at the junction of the left innominate vein and SVC. The heart size is sofy l. There is hazy density at the bases bilaterally. The mid and upper lungs are relatively clear. CONCLUSION: Bilateral central lines including a new left Vas-Cath in good position. Bibasilar areas of consolidation or atelectasis. Electronically signed by: Red Parnell MD 11/02/2017 1:21 PM EDT
--- NOTE | 2017-11-02 14:15 | ECHRPT ---
Indication: SEPSIS CONCLUSIONS The left ventricular systolic function is hyperdynamic with an estimated ejection fraction in the ra nge of 65- 70%. Normal left ventricular size. Wall thickness is normal. No regional wall motion abnormalities are present. Aortic valve sclerosis is present. Mild thickening of the tricuspid valve leaflets. There is trace tricuspid valve regurgitation. The estimated pulmonary arterial pressure is 25.7 mmHg. BP: / HR: Rhythm: MEASUREMENTS (Male / Female) Normal Values Technical Quality: 2D ECHO LV Diastolic Diameter PLAX 4.9 cm 4.2 - 5.9 / 3.9 - 5.3 cm LV Systolic Diameter PLAX 3.2 cm IVS Diastolic Thickness 1.0 cm 0.6 - 1.0 / 0.6 - 0.9 cm LVPW Diastolic Thickness 1.0 cm 0.6 - 1.0 / 0.6 - 0.9 cm LV Relative Wall Thickness 0.4 RV Internal Dim ED PLAX 3.3 cm DOPPLER TR Peak Velocity 198.0 cm/s TR Peak Gradient 15.7 mmHg Right Atrial Pressure 10.0 mmHg Pulmonary Artery Systolic Pressu 25.7 mmHg Right Ventricular Systolic Press 25.7 mmHg FINDINGS LEFT VENTRICLE The left ventricular systolic function is hyperdynamic with an estimated ejection fraction in the ra nge of 65- 70%. Normal left ventricular size. Wall thickness is normal. No regional wall motion abnormalities are present. AORTIC VALVE Trileaflet aortic valve. Aortic valve sclerosis is present. TRICUSPID VALVE Mild thickening of the tricuspid valve leaflets. There is trace tricuspid valve regurgitation. The estimated pulmonary arterial pressure is 25.7 mmHg. Jonel Segovia MD, FACC, [facility] [place] (Electronically Signed) Final Date:02 November 2017 14:14
[2017-11-02 15:03] LABS: ABG Base Excess -3.2 mmol/L (-2-2); ABG PCO2 46 mmHg (38-42); ABG PO2 102 mmHG (61-120)
--- NOTE | 2017-11-02 15:12 | P.PCN ---
Date of procedure: 11/02/17 Procedure: PROCEDURE PERFORMED Central line placement: Left IJ vascath CONSENT Informed consent for procedure was obtained. The risks and benefits of the procedure were discussed to include but limited to bleeding, clot formation, infection, and even . ANESTHESIA Local injection of 1% Lidocaine DESCRIPTION OF THE PROCEDURE The patient was placed in supine, mild Trendelenburg position. The area was exposed and cleansed with ChloraPrep, times two. Large sterile drape was used to cover the patient, with the site exposed, under sterile conditions including cap, face mask, sterile gown, and sterile gloves. On single attempt, the introducer needle was inserted with negative pressure in syringe and venous flash was obtained. The guide wire was then advanced without any restriction and the needle was removed. The dilator was used without any complications. Using Seldinger technique the catheter was advanced over the guide wire to a depth of 20 centimeters. The guide wire was removed. All ports were aspirated with dark venous blood return and flushed easily with sterile saline. All ports were capped. Antibiotic disc was placed around central line at puncture site. The central line was secured to the skin with two interrupted 2.0 silk sutures. The area was bandaged with sterile see-through central line bandage. RADIOLOGICAL DATA Ultrasound guidance was used to locate Left IJ vein. CXR post line placement showed central line in good position. No evidence of PTX. COMPLICATIONS: No apparent complications ESTIMATED BLOOD LOSS: Less than 1 cc. Ruma Ramirez MD
[2017-11-02 18:00] LABS: INR 1.5 Ratio
[2017-11-02 20:37] LABS: Hepatitis A IgM Antibody Nonreactive (Nonreactive)
[2017-11-02 20:38] LABS: Hepatitits B Surface Antigen Nonreactive (Nonreactive)
[2017-11-02] MEDS ORDERED: Haloperidol Inj 5 MG/ML Ampul IV.PUSH PRN (20:51)
[2017-11-02] MEDS ORDERED: LORazepam 1 MG Tablet PO PRN (20:51)
[2017-11-03] MEDS: Hydrocortisone Sod Succinate 100 MG Vial IV.PUSH SCH ×4 (03:29→21:40)
[2017-11-03] MEDS: Chlorhexidine Gluconate 2% 1 Pack (2 Cloths) TOPICAL SCH (03:29)
[2017-11-03] MEDS: Oral Hygiene Kit OROPHARYNG SCH ×3 (03:29→21:40)
[2017-11-03 04:55] LABS: Baso % (Auto) 0.2 % (0.0-2.0); Eos % (Auto) 0.1 % (0.0-4.0); Hematocrit 32.7 % (39.0-51.0); Lymph % (Auto) 6.8 % (9.0-44.0); Mean Corpuscular HGB Conc 33.8 % (32.0-36.0); Mean Corpuscular Hemoglobin 34.9 pg (27.0-34.0); Mean Corpuscular Volume 103.3 fL (80.0-100.0); Mono # (Auto) 1.2 th/mm3 (0.0-0.9); Neut # (Auto) 11.7 th/mm3 (1.8-7.7); Neut % (Auto) 83.9 % (16.0-70.0); Platelet Count 45 th/mm3 (150-450); Red Blood Count 3.16 mil/mm3 (4.50-5.90); Red Cell Distribution Width 14.8 % (11.6-17.2); White Blood Count 13.9 th/mm3 (4.0-11.0)
[2017-11-03 05:00] LABS: INR 1.7 Ratio; Prothrombin Time 16.8 sec (9.8-11.6)
[2017-11-03 05:21] LABS: Albumin 2.1 g/dL (3.4-5.0); Calcium 6.9 mg/dL (8.5-10.1); Phosphorus 3.8 mg/dL (2.5-4.9); Potassium 4.3 meq/L (3.5-5.1); Total Protein 6.8 g/dL (6.4-8.2)
[2017-11-03] MEDS: Insulin NovoLOG Aspart Correctional Sugar Inj SQ SCH (05:33)
[2017-11-03 07:02] LABS: Lymphocytes 6 % (9-44); Monocytes 8 % (0-8); Promyelocyte 1 % (0-0)
[2017-11-03 07:03] LABS: Platelet Morphology Normal (Normal)
[2017-11-03] MEDS: rifAXIMin 550 MG Tablet PO SCH ×2 (08:14→21:40)
[2017-11-03] MEDS: Senna/Docusate Sodium 8.6/50 MG Tablet PO SCH ×2 (08:14→21:41)
[2017-11-03] MEDS: Hypromellose 0.3% Opth Gel 10 GM Bottle EACH EYE SCH ×2 (08:16→21:40)
[2017-11-03] MEDS: Chlorhexidine 0.12% Oral Kit 15 ML UDC OROPHARYNG SCH ×2 (08:19→21:40)
--- NOTE | 2017-11-03 09:52 | P.PNCC ---
Subjective Subjective Remarks/Hospital Course: 52-year-old male with a past medical history of alcohol dependence who sought medical attention after a friend found him in the hotel room with fever and ill appearance after episode of binge drinking. Patient has multiple bruises and states he has been falling often which he attributes to poor footwear. His primary complaint is pain and tenderness of his sacrum and L4/L5 region. Denies IVDU. Denies CP, SOB, Cough, sputum production, urinary symptoms , abdominal pain, nausea, vomiting, headache, neck pain, neck stiffness. He does report some diarrhea, nonbloody, non melena and difficult to quantify. He says he has "always drank EtOH heavily, but it has been drinking more than usual over the last 2 weeks". He is tremulous, hypertensive, tachycardic with clinical appearance of EtOH withdrawal. ED workup included CT brain which is negative, CT chest with RLL consolidation, CT abd/pelvis with wall thickening c/ w colitis of ascending/transverse colon. WBC 23.5, lactic acid 11.4. In the ED he has received vancomycin, piperacillin/tazobactam, NS 2 L bolus, magnesium sulfate 1 gram IV, Ativan 2 mg IV, Thiamine 100 mg IV, Ofirmev 1 gram IV. SUBJECTIVE: 10/31: Remains on norepinephrine drip at 8 mcg/min. Weaning FiO2 and ventilator. Minimal response on the ventilator on propofol and dexmedetomidine drips. MRI of the lumbar spine, sacrum and foot will be performed this afternoon. Noted gram-positive cocci bacteremia. 2D echocardiogram ordered repeat blood cultures today. Currently on vancomycin and piperacillin/ tazobactam. 11/01 Patient is sedated with Diprivan and Fentanyl drips. On Levophed 9 mics. Renal function worse this morning with Cr: 2.89 from 1.95. Afebrile. 11/02 Patient remains intubated and sedated. Renal function continue to decline with Cr: 4.22 from 2.89 with poor UOP. Afebrile. Levophed down 1 jaison. 11/03 Patient remains intubated and sedated on Fentanyl infusion. Afebrile. HD initiated yesterday with removal 2L. Off Levophed. Objective Vital Signs / I&O: Vital Signs 11/02/17 10:00 11/02/17 11:00 11/02/17 11:33 Temperature 97.8 F Pulse Rate 96 H 96 H 97 H Respiratory Rate 14 14 14 Blood Pressure 109/61 111/66 108/56 L Pulse Oximetry 93 L 93 L 11/02/17 11:58 11/02/17 12:00 11/02/17 13:00 Temperature 98.2 F Pulse Rate 103 H 130 H Respiratory Rate 16 11 L 20 Blood Pressure 113/67 105/58 L Pulse Oximetry 96 95 92 L 11/02/17 13:50 11/02/17 14:00 11/02/17 15:00 Temperature 98.2 F Pulse Rate 128 H 128 H 129 H Respiratory Rate 20 20 20 Blood Pressure 83/48 L 95/64 L 101/55 L Pulse Oximetry 93 L 95 11/02/17 15:26 11/02/17 16:00 11/02/17 17:00 Temperature 98.0 F Pulse Rate 135 H 94 H Respiratory Rate 20 20 21 Blood Pressure 107/63 113/57 L Pulse Oximetry 95 93 L 93 L 11/02/17 18:00 11/02/17 19:00 11/02/17 20:00 Temperature 99.0 F Pulse Rate 101 H 89 89 Respiratory Rate 32 H 20 21 Blood Pressure 118/85 103/61 108/62 Pulse Oximetry 94 L 100 11/02/17 20:17 11/02/17 20:38 11/02/17 20:52 Temperature Pulse Rate 90 Respiratory Rate 21 20 20 Blood Pressure Pulse Oximetry 96 11/02/17 21:00 11/02/17 22:00 11/02/17 23:00 Temperature Pulse Rate 87 85 86 Respiratory Rate 20 22 21 Blood Pressure Pulse Oximetry 96 92 L 94 L 11/02/17 23:49 11/02/17 23:52 11/03/17 00:00 Temperature 98.8 F Pulse Rate 85 83 Respiratory Rate 22 20 20 Blood Pressure 88/51 L Pulse Oximetry 92 L 93 L 11/03/17 00:17 11/03/17 01:00 11/03/17 01:22 Temperature Pulse Rate 85 86 Respiratory Rate 20 20 24 Blood Pressure 120/65 Pulse Oximetry 91 L 94 L 11/03/17 02:00 11/03/17 03:00 11/03/17 03:34 Temperature Pulse Rate 92 H 83 87 Respiratory Rate 20 20 20 Blood Pressure 124/67 118/60 Pulse Oximetry 93 L 92 L 11/03/17 04:00 11/03/17 04:37 11/03/17 06:00 Temperature 98.7 F Pulse Rate 83 86 Respiratory Rate 22 20 Blood Pressure 117/63 102/49 L Pulse Oximetry 92 L 93 L 11/03/17 08:24 11/03/17 08:29 Temperature Pulse Rate 84 Respiratory Rate 20 20 Blood Pressure Pulse Oximetry 92 L Intake & Output 11/02/17 11/03/17 11/03/17 18:59 06:59 18:59 Intake Total 571 / 571 1001.2 / 1001.2 Output Total 2049 / 2049 50 / 50 Balance -1479 / -1479 951.2 / 951.2 Weight 140 kg Intake: IV 350 / 350 861.2 / 861.2 Unasyn Inj 3 GM In NS Inj 100 100 / 100 100 / 100 ML @ 200 mls/hr IV.SIG Q12H AMADEO Rx#:[id number] MVI-12 Inj 10 ML Thiamine Inj 511.2 / 511.2 100 MG Folvite Inj 1 MG In NS Inj 500 ML @ 127.8 mls/hr IV. SIG Q24H AMADEO Rx#:[id number] fentaNYL 10 mcg/mL Premix Drip 250 / 250 250 / 250 2,500 mcg In 250 ml @ 50 MCG/HR 5 mls/hr IV.SIG TITRATE PRN Rx #:[id number] Tube Feeding 221 / 221 140 / 140 Intake (Blood Product) Amt 0 / 0 Liquid Plasma Cp2d Unit 0 / 0 [id number] Liquid Plasma Cp2d Unit 0 / 0 [id number] Output: Urine 50 / 50 Hemodialysis Amount 1999 / 1999 Urine Amount (Catheter) 50 / 50 Indwelling Urethral Catheter 50 / 50 Other: Date of Last Bowel Movement 11/03/17 # Bowel Movements 1 Result Diagrams: 11/03/17 04:20 11/03/17 04:20 Other Results: Laboratory Results - last 12 hr 11/02/17 11/03/17 11/03/17 23:06 04:20 04:20 WBC 13.9 H RBC 3.16 L Hgb 11.0 L Hct 32.7 L MCV 103.3 H MCH 34.9 H MCHC 33.8 RDW 14.8 Plt Count 45 L MPV 11.0 Prelim Diff (Auto) Slide review pending Neut % (Auto) 83.9 H Lymph % (Auto) 6.8 L Sibley % (Auto) 9.0 H Eos % (Auto) 0.1 Baso % (Auto) 0.2 Neut # (Auto) 11.7 H Lymph # (Auto) 1.0 Sibley # (Auto) 1.2 H Eos # (Auto) 0.0 Baso # (Auto) 0.0 WBC Differential Manual diff final Seg Neuts % (Manual) 82 H Band Neuts % (Manual) 3 Lymphocytes % (Manual) 6 L Monocytes % (Manual) 8 Promyelocytes % (Man) 1 H Abs Neuts (Manual) 12.0 H Differential Comment . Platelet Estimate Low L Platelet Morphology Normal PT 16.8 H INR 1.7 Sodium Potassium Chloride Carbon Dioxide Anion Gap BUN Creatinine Estimated GFR POC Glucose 163 H Random Glucose Calcium Prot Corrected Calcium Phosphorus Total Bilirubin AST ALT Alkaline Phosphatase Total Protein Albumin Stl C.difficile Tox PCR St C. diff Tox Epid 027 11/03/17 11/03/17 11/03/17 04:20 05:11 05:30 WBC RBC Hgb Hct MCV MCH MCHC RDW Plt Count MPV Prelim Diff (Auto) Neut % (Auto) Lymph % (Auto) Sibley % (Auto) Eos % (Auto) Baso % (Auto) Neut # (Auto) Lymph # (Auto) Sibley # (Auto) Eos # (Auto) Baso # (Auto) WBC Differential Seg Neuts % (Manual) Band Neuts % (Manual) Lymphocytes % (Manual) Monocytes % (Manual) Promyelocytes % (Man) Abs Neuts (Manual) Differential Comment Platelet Estimate Platelet Morphology PT INR Sodium 140 Potassium 4.3 D Chloride 105 Carbon Dioxide 27.0 Anion Gap 8 BUN 51 H Creatinine 5.24 H Estimated GFR 12 L POC Glucose 148 H Random Glucose 149 H Calcium 6.9 L* Prot Corrected Calcium 7.1 L* Phosphorus 3.8 D Total Bilirubin 12.6 H AST 163 H ALT 43 Alkaline Phosphatase 107 Total Protein 6.8 Albumin 2.1 L Stl C.difficile Tox PCR Negative St C. diff Tox Epid 027 Negative Imaging: Abdomen/Pelvis CT 10/30/17 17:35 CONCLUSION: 1. Mild colitis predominantly on the right side with trace free fluid and some inflammatory changes on the right. No bowel obstruction. No free air. 2. Multiple layering gallstones. 3. Subsegmental basilar airspace consolidation in the lungs. Differential diagnosis includes mild pneumonia. 4. Fatty liver enlarged to [address] 10/30/17 17:35 CONCLUSION: 1. No acute intracranial abnormalities. . Chest CTA 10/30/17 19:02 CONCLUSION: 1. Suboptimal bolus but no evidence for central pulmonary emboli. 2. Patchy airspace consolidation right lung base most characteristic of pneumonia. No significant effusion. Foot X-Ray 10/30/17 21:27 CONCLUSION: No acute findings. Moderate degenerative change. Bone spurs posterior calcaneus. Lumbar Spine CT 10/30/17 21:43 CONCLUSION: 1. No acute fracture. 2. 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 3. At L5-S1 there is a small central disc protrusion. Mild bilateral foraminal encroachment. Thoracic Spine CT 10/30/17 21:43 CONCLUSION: 1. Negative for acute traumatic injury to the thoracic spine. Small Schmorl's nodes in the lower thoracic spine. Foot MRI 10/31/17 00:00 CONCLUSION: 1. Lumbar Spine MRI 10/31/17 00:00 CONCLUSION: Extruded disc fragment with a donor site at L4-L5 lying posterior to the L4 vertebral body severe right-sided and moderate left-sided foraminal narrowing. There is no evidence of abscess. Sacrum/Coccyx MRI 10/31/17 00:00 CONCLUSION: 1. Negative MRI of the sacrum Abdomen X-Ray 11/01/17 10:38 CONCLUSION: Nonobstructive bowel gas pattern. Chest X-Ray 11/02/17 00:00 CONCLUSION: Bilateral central lines including a new left Vas-Cath in good position. Bibasilar areas of consolidation or atelectasis. Objective Remarks: GENERAL: Patient is 52 yo intubated and sedated SKIN: Warm and dry. HEAD: Normocephalic. EYES: No scleral icterus. No injection or drainage. NECK: Supple, trachea midline. No JVD or lymphadenopathy. CARDIOVASCULAR: Regular rate and rhythm without murmurs, gallops, or rubs. RESPIRATORY: Breath sounds equal bilaterally. No accessory muscle use. GASTROINTESTINAL: Abdomen soft, non-tender, nondistended. MUSCULOSKELETAL: No cyanosis, or edema. Neuro: Intubated, sedated Assessment and Plan - Assessment and Plan Plan: NEURO/PSYCH: EtOH dependence - 147 on admission Delirium tremens Acute toxic metabolic encephalopathy CT brain 10/30- for acute intracranial abnormality On Fentanyl infusion for sedation. Daily sedation vacation Continue thiamine/folic acid/multivitamin IV bag 3 days. 10/31 EEG: Encephalopathy, no epileptiform activity. Acetaminophen 650 mg p.o. every 8 hours as needed fever RESP: Acute respiratory failure Aspiration pneumonia Intubated 10/31 for airway protection. PRVC 20 TV 550, IT:1.0, PEEP:8, FIO2: 40% Ventilator bundle, Albuterol/ipratropium aerosols every 4 hours with albuterol aerosols every 2 hours as needed CPAP trial as demario CV: s/p Septic Lactic acidemia- resolved Off Levophed monitor HR and BP keep MAP>65mmHg Lactic acid cleared 1.0 Echo showed EF 65-70% Monitor trop (trending down). on stress dose stress steroids- HC 50ml IV Q6 GI: Right/transverse mild colitis/acute Alcoholic hepatitis Hepatic steatosis Hepatosplenomegaly. Liver is 25 cm. Cholelithiasis On Lactulose 30ml BID, Continue tube feeds= Nepro @20ml/hr with goal rate 40ml/hr CT abdomen and pelvis demonstrates thickening of right colon extending into transverse colon. There is hepatomegaly and steatosis.. Clinical exam upon presentation was benign and did not appear c/w mesenteric ischemia. We will continue to monitor serial abdominal exams and lactic acid. GI is following FEN/RENAL: Acute kidney injury Monitor renal function, I/O's, avoid nephrotoxins No hydronephrosis on CT abdomen/pelvis. Monitor renal function, I/O's, avoid nephrotoxins Renal is following- Dr. Valadez. HD initiated 11/02 with removal 2L. For another HD session today ID: Group A beta Strep bacteremia Cellulitis toes bilaterally Leukocytosis...trending down He received piperacillin/tazobactam and vancomycin in the emergency department. Pertinent cultures Blood culture x 2 10/30 -gram-positive cocci/strep pyogenes - BC 11/01: NGTD Sputum 10/31 -Strep Pyogenes C diff negative today urine pneumococcal antigen, urine Legionella antigen, influenza a and B- all negative Infectious disease is following- Dr. Juliette Abx per ID (Unasyn, Vanco) monitor for signs of infections ( Fever, WBC) MRI foot: No abscess, HEME: Acute coagulopathy DIC - Leukocytosis Macrocytic anemia Thrombocytopenia Monitor coags/CBC/platelets. There is no significant active bleeding at this time, Monitor CBC. coags, INR 1.7 today s/p 2u FFP / for vascath placement ENDO: Acute hyperglycemia TSH 0.25. Low T3 at 1.57. Low normal T4. ? undiagnosed diabetes mellitus. Sliding-scale insulin with aspart insulin with Accu-Cheks every 6 hours to maintain euglycemia/medium regimen MSK: Elevated BMI Low back pain L5/S1 disc protrusion Pars defect L4/L5 Weight loss encouraged PROPH: SCDs for DVT prophylaxis. Avoid pharmacologic DVT prophylaxis at this time due to coagulopathy. Lansoprazole for stress ulcer prophylaxis ACCESS: Right IJ central venous line placed 10/31. Left radial arterial line placed 11/01. Left IJ vascath placed 11/02 CCT 30 mins
[2017-11-03] MEDS: Heparin 10,000 UNITS/10 ML Vial (for IV use) OTHER PRN (09:58)
--- NOTE | 2017-11-03 11:16 | P.PNGI ---
Physical Exam Vital signs: Vital Signs 11/02/17 11:33 11/02/17 11:58 11/02/17 12:00 Temperature 97.8 F 98.2 F Pulse Rate 97 H 103 H Respiratory Rate 14 16 11 L Blood Pressure 108/56 L 113/67 Pulse Oximetry 96 95 11/02/17 13:00 11/02/17 13:50 11/02/17 14:00 Temperature 98.2 F Pulse Rate 130 H 128 H 128 H Respiratory Rate 20 20 20 Blood Pressure 105/58 L 83/48 L 95/64 L Pulse Oximetry 92 L 93 L 11/02/17 15:00 11/02/17 15:26 11/02/17 16:00 Temperature 98.0 F Pulse Rate 129 H 135 H Respiratory Rate 20 20 20 Blood Pressure 101/55 L 107/63 Pulse Oximetry 95 95 93 L 11/02/17 17:00 11/02/17 18:00 11/02/17 19:00 Temperature Pulse Rate 94 H 101 H 89 Respiratory Rate 21 32 H 20 Blood Pressure 113/57 L 118/85 103/61 Pulse Oximetry 93 L 94 L 11/02/17 20:00 11/02/17 20:17 11/02/17 20:38 Temperature 99.0 F Pulse Rate 89 Respiratory Rate 21 21 20 Blood Pressure 108/62 Pulse Oximetry 100 96 11/02/17 20:52 11/02/17 21:00 11/02/17 22:00 Temperature Pulse Rate 90 87 85 Respiratory Rate 20 20 22 Blood Pressure Pulse Oximetry 96 92 L 11/02/17 23:00 11/02/17 23:49 11/02/17 23:52 Temperature Pulse Rate 86 85 Respiratory Rate 21 22 20 Blood Pressure Pulse Oximetry 94 L 92 L 11/03/17 00:00 11/03/17 00:17 11/03/17 01:00 Temperature 98.8 F Pulse Rate 83 85 Respiratory Rate 20 20 20 Blood Pressure 88/51 L Pulse Oximetry 93 L 91 L 11/03/17 01:22 11/03/17 02:00 11/03/17 03:00 Temperature Pulse Rate 86 92 H 83 Respiratory Rate 24 20 20 Blood Pressure 120/65 124/67 118/60 Pulse Oximetry 94 L 93 L 92 L 11/03/17 03:34 11/03/17 04:00 11/03/17 04:37 Temperature 98.7 F Pulse Rate 87 83 Respiratory Rate 20 22 20 Blood Pressure 117/63 Pulse Oximetry 92 L 93 L 11/03/17 06:00 11/03/17 08:24 11/03/17 08:29 Temperature Pulse Rate 86 84 Respiratory Rate 20 20 Blood Pressure 102/49 L Pulse Oximetry 92 L Intake & Output 11/02/17 11/03/17 11/03/17 18:59 06:59 18:59 Intake Total 571 / 571 1001.2 / 1001.2 Output Total 2049 / 2049 50 / 50 Balance -1479 / -1479 951.2 / 951.2 Weight 140 kg Intake: IV 350 / 350 861.2 / 861.2 Unasyn Inj 3 GM In NS Inj 100 100 / 100 100 / 100 ML @ 200 mls/hr IV.SIG Q12H [facility] Rx#:[id number] MVI-12 Inj 10 ML Thiamine Inj 511.2 / 511.2 100 MG Folvite Inj 1 MG In NS Inj 500 ML @ 127.8 mls/hr IV. SIG Q24H [facility] Rx#:[id number] fentaNYL 10 mcg/mL Premix Drip 250 / 250 250 / 250 2,500 mcg In 250 ml @ 50 MCG/HR 5 mls/hr IV.SIG TITRATE PRN Rx #:[id number] Tube Feeding 221 / 221 140 / 140 Intake (Blood Product) Amt 0 / 0 Liquid Plasma Cp2d Unit 0 / 0 [id number] Liquid Plasma Cp2d Unit 0 / 0 [id number] Output: Urine 50 / 50 Hemodialysis Amount 1999 / 1999 Urine Amount (Catheter) 50 / 50 Indwelling Urethral Catheter 50 / 50 Other: Date of Last Bowel Movement 11/03/17 # Bowel Movements 1 - Urinary Catheter Management Indwelling Urethral Catheter Cath placed during this visit: yes Reason for continuing: Hourly intake/output Insertion date: 10/31/17 Insertion time: 10:30 <Joelle Menchaca - Last Filed: 11/03/17 11:11> Vital signs: Vital Signs 11/02/17 17:00 11/02/17 18:00 11/02/17 19:00 Temperature Pulse Rate 94 H 101 H 89 Respiratory Rate 21 32 H 20 Blood Pressure 113/57 L 118/85 103/61 Pulse Oximetry 93 L 94 L 11/02/17 20:00 11/02/17 20:17 11/02/17 20:38 Temperature 99.0 F Pulse Rate 89 Respiratory Rate 21 21 20 Blood Pressure 108/62 Pulse Oximetry 100 96 11/02/17 20:52 11/02/17 21:00 11/02/17 22:00 Temperature Pulse Rate 90 87 85 Respiratory Rate 20 20 22 Blood Pressure Pulse Oximetry 96 92 L 11/02/17 23:00 11/02/17 23:49 11/02/17 23:52 Temperature Pulse Rate 86 85 Respiratory Rate 21 22 20 Blood Pressure Pulse Oximetry 94 L 92 L 11/03/17 00:00 11/03/17 00:17 11/03/17 01:00 Temperature 98.8 F Pulse Rate 83 85 Respiratory Rate 20 20 20 Blood Pressure 88/51 L Pulse Oximetry 93 L 91 L 11/03/17 01:22 11/03/17 02:00 11/03/17 03:00 Temperature Pulse Rate 86 92 H 83 Respiratory Rate 24 20 20 Blood Pressure 120/65 124/67 118/60 Pulse Oximetry 94 L 93 L 92 L 11/03/17 03:34 11/03/17 04:00 11/03/17 04:37 Temperature 98.7 F Pulse Rate 87 83 Respiratory Rate 20 22 20 Blood Pressure 117/63 Pulse Oximetry 92 L 93 L 11/03/17 06:00 11/03/17 08:00 11/03/17 08:24 Temperature 97.8 F Pulse Rate 86 82 84 Respiratory Rate 20 20 Blood Pressure 102/49 L 124/71 Pulse Oximetry 94 L 11/03/17 08:29 11/03/17 10:00 11/03/17 12:00 Temperature 97.1 F L Pulse Rate 82 84 Respiratory Rate 20 20 Blood Pressure 122/65 Pulse Oximetry 92 L 93 L 11/03/17 12:27 11/03/17 12:30 11/03/17 14:00 Temperature Pulse Rate 83 81 Respiratory Rate 20 20 Blood Pressure Pulse Oximetry 93 L 11/03/17 16:10 11/03/17 16:11 Temperature Pulse Rate 87 Respiratory Rate 20 21 Blood Pressure Pulse Oximetry Intake & Output 11/02/17 11/03/17 11/03/17 18:59 06:59 18:59 Intake Total 571 / 571 1001.2 / 1001.2 250 / 250 Output Total 2049 / 2049 50 / 50 3000 / 3000 Balance -1479 / -1479 951.2 / 951.2 -2750 / -2750 Weight 140 kg Intake: IV 350 / 350 861.2 / 861.2 250 / 250 Unasyn Inj 3 GM In NS Inj 100 100 / 100 100 / 100 ML @ 200 mls/hr IV.SIG Q12H [facility] Rx#:[id number] MVI-12 Inj 10 ML Thiamine Inj 511.2 / 511.2 100 MG Folvite Inj 1 MG In NS Inj 500 ML @ 127.8 mls/hr IV. SIG Q24H [facility] Rx#:[id number] fentaNYL 10 mcg/mL Premix Drip 250 / 250 250 / 250 250 / 250 2,500 mcg In 250 ml @ 50 MCG/HR 5 mls/hr IV.SIG TITRATE PRN Rx #:[id number] Tube Feeding 221 / 221 140 / 140 Intake (Blood Product) Amt 0 / 0 Liquid Plasma Cp2d Unit 0 / 0 [id number] Liquid Plasma Cp2d Unit 0 / 0 [id number] Output: Urine 50 / 50 Hemodialysis Amount 2000 / 1999 3000 / 3000 Urine Amount (Catheter) 50 / 50 Indwelling Urethral Catheter 50 / 50 Other: Date of Last Bowel Movement 11/03/17 11/03/17 # Bowel Movements 1 - Urinary Catheter Management Indwelling Urethral Catheter Cath placed during this visit: no <Michael Cordero - Last Filed: 11/03/17 16:45> Results - Labs CBC & Chem 7: 11/03/17 04:20 11/03/17 04:20 Laboratory Results - last 24 hr 11/02/17 11/02/17 11/02/17 08:30 11:19 14:48 WBC RBC Hgb Hct MCV MCH MCHC RDW Plt Count MPV Prelim Diff (Auto) Neut % (Auto) Lymph % (Auto) Elk % (Auto) Eos % (Auto) Baso % (Auto) Neut # (Auto) Lymph # (Auto) Elk # (Auto) Eos # (Auto) Baso # (Auto) WBC Differential Seg Neuts % (Manual) Band Neuts % (Manual) Lymphocytes % (Manual) Monocytes % (Manual) Promyelocytes % (Man) Abs Neuts (Manual) Differential Comment Platelet Estimate Platelet Morphology PT INR Puncture Site Art line Patient Temperature 98.6 O2 Saturation 95 ABG pH 7.30 L ABG pCO2 46 H ABG pO2 102 ABG HCO3 22 ABG O2 Content 20.2 H ABG Base Excess -3.2 L ABG Methemoglobin 1.2 Hemoglobin 15.0 Carboxyhemoglobin 0.8 O2 Delivery Device Ventilator Vent Setting Prvc/ac Inspired O2 40 Critical Value No Sodium Potassium Chloride Carbon Dioxide Anion Gap BUN Creatinine Estimated GFR POC Glucose 141 H Random Glucose Calcium Prot Corrected Calcium Phosphorus Total Bilirubin AST ALT Alkaline Phosphatase Total Protein Albumin Stl C.difficile Tox PCR St C. diff Tox Epid 027 Hepatitis A IgM Ab Hep Bs Antigen Hep B Core IgM Ab Hep C IgG Ab Blood Type B Positive Blood Bank Comment 11/02/17 11/02/17 11/02/17 16:20 16:20 17:16 WBC RBC Hgb Hct MCV MCH MCHC RDW Plt Count MPV Prelim Diff (Auto) Neut % (Auto) Lymph % (Auto) Elk % (Auto) Eos % (Auto) Baso % (Auto) Neut # (Auto) Lymph # (Auto) Elk # (Auto) Eos # (Auto) Baso # (Auto) WBC Differential Seg Neuts % (Manual) Band Neuts % (Manual) Lymphocytes % (Manual) Monocytes % (Manual) Promyelocytes % (Man) Abs Neuts (Manual) Differential Comment Platelet Estimate Platelet Morphology PT 15.0 H INR 1.5 Puncture Site Patient Temperature O2 Saturation ABG pH ABG pCO2 ABG pO2 ABG HCO3 ABG O2 Content ABG Base Excess ABG Methemoglobin Hemoglobin Carboxyhemoglobin O2 Delivery Device Vent Setting Inspired O2 Critical Value Sodium Potassium Chloride Carbon Dioxide Anion Gap BUN Creatinine Estimated GFR POC Glucose 120 H Random Glucose Calcium Prot Corrected Calcium Phosphorus Total Bilirubin AST ALT Alkaline Phosphatase Total Protein Albumin Stl C.difficile Tox PCR St C. diff Tox Epid 027 Hepatitis A IgM Ab Nonreactive Hep Bs Antigen Nonreactive Hep B Core IgM Ab Nonreactive Hep C IgG Ab Nonreactive Blood Type Blood Bank Comment 11/02/17 11/03/17 11/03/17 23:06 04:20 04:20 WBC 13.9 H RBC 3.16 L Hgb 11.0 L Hct 32.7 L MCV 103.3 H MCH 34.9 H MCHC 33.8 RDW 14.8 Plt Count 45 L MPV 11.0 Prelim Diff (Auto) Slide review pending Neut % (Auto) 83.9 H Lymph % (Auto) 6.8 L Elk % (Auto) 9.0 H Eos % (Auto) 0.1 Baso % (Auto) 0.2 Neut # (Auto) 11.7 H Lymph # (Auto) 1.0 Elk # (Auto) 1.2 H Eos # (Auto) 0.0 Baso # (Auto) 0.0 WBC Differential Manual diff final Seg Neuts % (Manual) 82 H Band Neuts % (Manual) 3 Lymphocytes % (Manual) 6 L Monocytes % (Manual) 8 Promyelocytes % (Man) 1 H Abs Neuts (Manual) 12.0 H Differential Comment . Platelet Estimate Low L Platelet Morphology Normal PT 16.8 H INR 1.7 Puncture Site Patient Temperature O2 Saturation ABG pH ABG pCO2 ABG pO2 ABG HCO3 ABG O2 Content ABG Base Excess ABG Methemoglobin Hemoglobin Carboxyhemoglobin O2 Delivery Device Vent Setting Inspired O2 Critical Value Sodium Potassium Chloride Carbon Dioxide Anion Gap BUN Creatinine Estimated GFR POC Glucose 163 H Random Glucose Calcium Prot Corrected Calcium Phosphorus Total Bilirubin AST ALT Alkaline Phosphatase Total Protein Albumin Stl C.difficile Tox PCR St C. diff Tox Epid 027 Hepatitis A IgM Ab Hep Bs Antigen Hep B Core IgM Ab Hep C IgG Ab Blood Type Blood Bank Comment 11/03/17 11/03/17 11/03/17 04:20 05:11 05:30 WBC RBC Hgb Hct MCV MCH MCHC RDW Plt Count MPV Prelim Diff (Auto) Neut % (Auto) Lymph % (Auto) Elk % (Auto) Eos % (Auto) Baso % (Auto) Neut # (Auto) Lymph # (Auto) Elk # (Auto) Eos # (Auto) Baso # (Auto) WBC Differential Seg Neuts % (Manual) Band Neuts % (Manual) Lymphocytes % (Manual) Monocytes % (Manual) Promyelocytes % (Man) Abs Neuts (Manual) Differential Comment Platelet Estimate Platelet Morphology PT INR Puncture Site Patient Temperature O2 Saturation ABG pH ABG pCO2 ABG pO2 ABG HCO3 ABG O2 Content ABG Base Excess ABG Methemoglobin Hemoglobin Carboxyhemoglobin O2 Delivery Device Vent Setting Inspired O2 Critical Value Sodium 140 Potassium 4.3 D Chloride 105 Carbon Dioxide 27.0 Anion Gap 8 BUN 51 H Creatinine 5.24 H Estimated GFR 12 L POC Glucose 148 H Random Glucose 149 H Calcium 6.9 L* Prot Corrected Calcium 7.1 L* Phosphorus 3.8 D Total Bilirubin 12.6 H AST 163 H ALT 43 Alkaline Phosphatase 107 Total Protein 6.8 Albumin 2.1 L Stl C.difficile Tox PCR Negative St C. diff Tox Epid 027 Negative Hepatitis A IgM Ab Hep Bs Antigen Hep B Core IgM Ab Hep C IgG Ab Blood Type Blood Bank Comment Microbiology 11/01/17 06:39 Blood - Peripheral Aerobic Blood Culture - Preliminary No growth in 2 days 11/01/17 06:39 Blood - Peripheral Anaerobic Blood Culture - Final QNS - See aerobic report. 11/01/17 04:40 Blood - Peripheral Aerobic Blood Culture - Preliminary No growth in 2 days 11/01/17 04:40 Blood - Peripheral Anaerobic Blood Culture - Preliminary No growth in 2 days 10/30/17 17:50 Blood - Peripheral Aerobic Blood Culture - Final Group A beta (Strep pyogenes) Staphylococcus aureus 10/30/17 17:50 Blood - Peripheral Anaerobic Blood Culture - Final Group A beta (Strep pyogenes) 10/30/17 17:50 Blood - Peripheral Aerobic Blood Culture - Preliminary Group A beta (Strep pyogenes) 10/30/17 17:50 Blood - Peripheral Anaerobic Blood Culture - Preliminary Group A beta (Strep pyogenes) 10/31/17 04:55 Sputum - Endotracheal Gram Stain - Final 10/31/17 04:55 Sputum - Endotracheal Sputum Culture - Final Group A beta (Strep pyogenes) - Imaging Impressions Chest X-Ray 11/02/17 00:00 CONCLUSION: Bilateral central lines including a new left Vas-Cath in good position. Bibasilar areas of consolidation or atelectasis. <Joelle Menchaca - Last Filed: 11/03/17 11:11> - Labs CBC & Chem 7: 11/03/17 04:20 11/03/17 04:20 Laboratory Results - last 24 hr 11/01/17 11/02/17 11/02/17 21:28 16:20 16:20 WBC RBC Hgb Hct MCV MCH MCHC RDW Plt Count MPV Prelim Diff (Auto) Neut % (Auto) Lymph % (Auto) Elk % (Auto) Eos % (Auto) Baso % (Auto) Neut # (Auto) Lymph # (Auto) Elk # (Auto) Eos # (Auto) Baso # (Auto) WBC Differential Seg Neuts % (Manual) Band Neuts % (Manual) Lymphocytes % (Manual) Monocytes % (Manual) Promyelocytes % (Man) Abs Neuts (Manual) Differential Comment Platelet Estimate Platelet Morphology PT 15.0 H INR 1.5 Sodium Potassium Chloride Carbon Dioxide Anion Gap BUN Creatinine Estimated GFR POC Glucose Random Glucose Calcium Prot Corrected Calcium Phosphorus Total Bilirubin AST ALT Alkaline Phosphatase Total Protein Albumin Stl C.difficile Tox PCR St C. diff Tox Epid 027 JESI Screen Neg Hepatitis A IgM Ab Nonreactive Hep Bs Antigen Nonreactive Hep B Core IgM Ab Nonreactive Hep C IgG Ab Nonreactive 11/02/17 11/02/17 11/03/17 17:16 23:06 04:20 WBC 13.9 H RBC 3.16 L Hgb 11.0 L Hct 32.7 L MCV 103.3 H MCH 34.9 H MCHC 33.8 RDW 14.8 Plt Count 45 L MPV 11.0 Prelim Diff (Auto) Slide review pending Neut % (Auto) 83.9 H Lymph % (Auto) 6.8 L Elk % (Auto) 9.0 H Eos % (Auto) 0.1 Baso % (Auto) 0.2 Neut # (Auto) 11.7 H Lymph # (Auto) 1.0 Elk # (Auto) 1.2 H Eos # (Auto) 0.0 Baso # (Auto) 0.0 WBC Differential Manual diff final Seg Neuts % (Manual) 82 H Band Neuts % (Manual) 3 Lymphocytes % (Manual) 6 L Monocytes % (Manual) 8 Promyelocytes % (Man) 1 H Abs Neuts (Manual) 12.0 H Differential Comment . Platelet Estimate Low L Platelet Morphology Normal PT INR Sodium Potassium Chloride Carbon Dioxide Anion Gap BUN Creatinine Estimated GFR POC Glucose 120 H 163 H Random Glucose Calcium Prot Corrected Calcium Phosphorus Total Bilirubin AST ALT Alkaline Phosphatase Total Protein Albumin Stl C.difficile Tox PCR St C. diff Tox Epid 027 JESI Screen Hepatitis A IgM Ab Hep Bs Antigen Hep B Core IgM Ab Hep C IgG Ab 11/03/17 11/03/17 11/03/17 04:20 04:20 05:11 WBC RBC Hgb Hct MCV MCH MCHC RDW Plt Count MPV Prelim Diff (Auto) Neut % (Auto) Lymph % (Auto) Elk % (Auto) Eos % (Auto) Baso % (Auto) Neut # (Auto) Lymph # (Auto) Elk # (Auto) Eos # (Auto) Baso # (Auto) WBC Differential Seg Neuts % (Manual) Band Neuts % (Manual) Lymphocytes % (Manual) Monocytes % (Manual) Promyelocytes % (Man) Abs Neuts (Manual) Differential Comment Platelet Estimate Platelet Morphology PT 16.8 H INR 1.7 Sodium 140 Potassium 4.3 D Chloride 105 Carbon Dioxide 27.0 Anion Gap 8 BUN 51 H Creatinine 5.24 H Estimated GFR 12 L POC Glucose 148 H Random Glucose 149 H Calcium 6.9 L* Prot Corrected Calcium 7.1 L* Phosphorus 3.8 D Total Bilirubin 12.6 H AST 163 H ALT 43 Alkaline Phosphatase 107 Total Protein 6.8 Albumin 2.1 L Stl C.difficile Tox PCR St C. diff Tox Epid 027 JESI Screen Hepatitis A IgM Ab Hep Bs Antigen Hep B Core IgM Ab Hep C IgG Ab 11/03/17 11/03/17 05:30 13:11 WBC RBC Hgb Hct MCV MCH MCHC RDW Plt Count MPV Prelim Diff (Auto) Neut % (Auto) Lymph % (Auto) Elk % (Auto) Eos % (Auto) Baso % (Auto) Neut # (Auto) Lymph # (Auto) Elk # (Auto) Eos # (Auto) Baso # (Auto) WBC Differential Seg Neuts % (Manual) Band Neuts % (Manual) Lymphocytes % (Manual) Monocytes % (Manual) Promyelocytes % (Man) Abs Neuts (Manual) Differential Comment Platelet Estimate Platelet Morphology PT INR Sodium Potassium Chloride Carbon Dioxide Anion Gap BUN Creatinine Estimated GFR POC Glucose 165 H Random Glucose Calcium Prot Corrected Calcium Phosphorus Total Bilirubin AST ALT Alkaline Phosphatase Total Protein Albumin Stl C.difficile Tox PCR Negative St C. diff Tox Epid 027 Negative JESI Screen Hepatitis A IgM Ab Hep Bs Antigen Hep B Core IgM Ab Hep C IgG Ab Microbiology 11/03/17 05:30 Stool Enteric Pathogens (PCR) - Final 10/30/17 17:50 Blood - Peripheral Aerobic Blood Culture - Final Group A beta (Strep pyogenes) 10/30/17 17:50 Blood - Peripheral Anaerobic Blood Culture - Final Group A beta (Strep pyogenes) 11/01/17 06:39 Blood - Peripheral Aerobic Blood Culture - Preliminary No growth in 2 days 11/01/17 06:39 Blood - Peripheral Anaerobic Blood Culture - Final QNS - See aerobic report. 11/01/17 04:40 Blood - Peripheral Aerobic Blood Culture - Preliminary No growth in 2 days 11/01/17 04:40 Blood - Peripheral Anaerobic Blood Culture - Preliminary No growth in 2 days 10/30/17 17:50 Blood - Peripheral Aerobic Blood Culture - Final Group A beta (Strep pyogenes) Staphylococcus aureus 10/30/17 17:50 Blood - Peripheral Anaerobic Blood Culture - Final Group A beta (Strep pyogenes) - Imaging Impressions Abdomen X-Ray 11/03/17 00:00 CONCLUSION: Increased distention of air-filled regions of the colon. Mild air-filled distention of the stomach. <Michael Cordero - Last Filed: 11/03/17 16:45> Assessment and Plan - Plan - Colitis, gastroenterology consult As stated in HPI, pt currently sedated and intubated, however was responsive on arrival and therefore Dr. Abdullahi was able to obtain some history. Pt did report complaints of diarrhea, unsure how much or for how long. Did deny hematochezia and melena. Denied any abdominal pain and was not tender on exam. CT abdomen and pelvis W IV contrast --> Mild colitis predominantly on the right side with trace free fluid and some inflammatory changes on the right. No bowel obstruction. No free air. Multiple layering gallstones. Subsegmental basilar airspace consolidation in the lungs. Fatty liver enlarged to 25 cm. - ETOH abuse- Pt reportedly had been binge drinking since Monday Labs consistent with ETOH- DF-[address] Abdullahi, will hold on steroids given septic shock, Pentoxifylline not an option-pt has OG and this can not be crushed (10/31) AST-173 ALT-36 T bili-6.5 Alk phos-184 ? cirrhosis- Thrombocytopenia (platelets-70) Coagulopathy (INR 2.1) Hypoalbuminemia (albumin-2.5) Ammonia-44 - Septic shock - leukocytosis, elevated lactic acid, febrile- Pt requiring pressors at this time Unknown source. cellulitis on feet vs PNA vs colitis (11/01) Pt remains sedated and mechanically ventilated via ETT. OG to LIWS with brown colored output. Per RN no BM, therefore stools studies still pending. Abdomen appears more distended and firm today. Ammonia elevated, on Lactulose, will add Xifaxan. (11/02) Pt remains sedated and orally intubated. Now off pressors. Minimal UOP and renal function declining, plan for vascath placement today. Pt now on TF, Nepro, at 20 mL/hr. Still with no BM. Bili continues to trend up. Solumedrol on hold due to sepsis. Pentoxifylline can not be given through OG. KUB from yesterday noted --> Nonobstructive bowel gas pattern 11/03/2017, patient remains intubated and sedated but did arouse to abdominal palpation with some mild grimace. OG tube remains intact with Nepro at 20 cc an hour. Patient's abdomen remain semifirm but has active bowel sounds. Right sided mild colitis noted on initial CT scan and fatty liver multiple layering gallstones. Currently patient remains too sick for any further diagnostic testing. GI will sign off for now but can reconsult at any time. Plan: Diet tube feeds, Nepro following nutritional recommendations goal rate Bowel regimen Avoid hepatotoxins Lactulose supportive care Pt has been seen and examined by myself and Dr. Cordero, note is written on his behalf <Joelle Menchaca - Last Filed: 11/03/17 11:11> - Plan Seen and examined with [employer], no bleeding, no abdominal pain. GI will sign off. Reconsult as needed for colonoscopy when more stable. Thank you - Attending Attestation The exam, history, and the medical decision-making described in the above note were completed with the assistance of the mid-level provider. I reviewed and agree with the findings presented. I attest that I had a [id number] encounter with the patient on the same day, and personally performed and documented my assessment and findings in the medical record. <Michael Cordero - Last Filed: 11/03/17 16:45>
--- NOTE | 2017-11-03 11:25 | P.PNNP ---
Subjective Interval history: Remains intubated and sedated. FiO2 at 40 %. Seen during hemodialysis. <KayySharon - Last Filed: 11/03/17 11:21> Physical Exam Vital signs: Vital Signs 11/02/17 11:33 11/02/17 11:58 11/02/17 12:00 Temperature 97.8 F 98.2 F Pulse Rate 97 H 103 H Respiratory Rate 14 16 11 L Blood Pressure 108/56 L 113/67 Pulse Oximetry 96 95 11/02/17 13:00 11/02/17 13:50 11/02/17 14:00 Temperature 98.2 F Pulse Rate 130 H 128 H 128 H Respiratory Rate 20 20 20 Blood Pressure 105/58 L 83/48 L 95/64 L Pulse Oximetry 92 L 93 L 11/02/17 15:00 11/02/17 15:26 11/02/17 16:00 Temperature 98.0 F Pulse Rate 129 H 135 H Respiratory Rate 20 20 20 Blood Pressure 101/55 L 107/63 Pulse Oximetry 95 95 93 L 11/02/17 17:00 11/02/17 18:00 11/02/17 19:00 Temperature Pulse Rate 94 H 101 H 89 Respiratory Rate 21 32 H 20 Blood Pressure 113/57 L 118/85 103/61 Pulse Oximetry 93 L 94 L 11/02/17 20:00 11/02/17 20:17 11/02/17 20:38 Temperature 99.0 F Pulse Rate 89 Respiratory Rate 21 21 20 Blood Pressure 108/62 Pulse Oximetry 100 96 11/02/17 20:52 11/02/17 21:00 11/02/17 22:00 Temperature Pulse Rate 90 87 85 Respiratory Rate 20 20 22 Blood Pressure Pulse Oximetry 96 92 L 11/02/17 23:00 11/02/17 23:49 11/02/17 23:52 Temperature Pulse Rate 86 85 Respiratory Rate 21 22 20 Blood Pressure Pulse Oximetry 94 L 92 L 11/03/17 00:00 11/03/17 00:17 11/03/17 01:00 Temperature 98.8 F Pulse Rate 83 85 Respiratory Rate 20 20 20 Blood Pressure 88/51 L Pulse Oximetry 93 L 91 L 11/03/17 01:22 11/03/17 02:00 11/03/17 03:00 Temperature Pulse Rate 86 92 H 83 Respiratory Rate 24 20 20 Blood Pressure 120/65 124/67 118/60 Pulse Oximetry 94 L 93 L 92 L 11/03/17 03:34 11/03/17 04:00 11/03/17 04:37 Temperature 98.7 F Pulse Rate 87 83 Respiratory Rate 20 22 20 Blood Pressure 117/63 Pulse Oximetry 92 L 93 L 11/03/17 06:00 11/03/17 08:24 11/03/17 08:29 Temperature Pulse Rate 86 84 Respiratory Rate 20 20 Blood Pressure 102/49 L Pulse Oximetry 92 L Intake & Output 11/02/17 11/03/17 11/03/17 18:59 06:59 18:59 Intake Total 571 / 571 1001.2 / 1001.2 Output Total 2049 / 2049 50 / 50 3000 / 3000 Balance -1479 / -1479 951.2 / 951.2 -3000 / -3000 Weight 140 kg Intake: IV 350 / 350 861.2 / 861.2 Unasyn Inj 3 GM In NS Inj 100 100 / 100 100 / 100 ML @ 200 mls/hr IV.SIG Q12H [facility] Rx#:[id number] MVI-12 Inj 10 ML Thiamine Inj 511.2 / 511.2 100 MG Folvite Inj 1 MG In NS Inj 500 ML @ 127.8 mls/hr IV. SIG Q24H [facility] Rx#:[id number] fentaNYL 10 mcg/mL Premix Drip 250 / 250 250 / 250 2,500 mcg In 250 ml @ 50 MCG/HR 5 mls/hr IV.SIG TITRATE PRN Rx #:[id number] Tube Feeding 221 / 221 140 / 140 Intake (Blood Product) Amt 0 / 0 Liquid Plasma Cp2d Unit 0 / 0 [id number] Liquid Plasma Cp2d Unit 0 / 0 [id number] Output: Urine 50 / 50 Hemodialysis Amount 1999 / 1999 3000 / 3000 Urine Amount (Catheter) 50 / 50 Indwelling Urethral Catheter 50 / 50 Other: Date of Last Bowel Movement 11/03/17 # Bowel Movements 1 Narrative: GENERAL: Intubated and sedated SKIN: Warm and dry. Left IJ HEAD: Normocephalic. EYES: No scleral icterus. No injection or drainage. NECK: Supple, trachea midline. No JVD or lymphadenopathy. CARDIOVASCULAR: Regular rate and rhythm without murmurs, gallops, or rubs. RESPIRATORY: Breath sounds decreased bilaterally. No accessory muscle use. Intubated GASTROINTESTINAL: Abdomen soft, non-tender, large. OG tube GENITOURINARY: Indwelling Anderson catheter, small amount of dark colored urine MUSCULOSKELETAL: No cyanosis, Mild generalized edema. - Urinary Catheter Management Indwelling Urethral Catheter Cath placed during this visit: yes Reason for continuing: Hourly intake/output Insertion date: 10/31/17 Insertion time: 10:30 <Sharon Sultana - Last Filed: 11/03/17 11:21> Vital signs: Vital Signs 11/03/17 12:00 11/03/17 12:27 11/03/17 12:30 Temperature 97.1 F L Pulse Rate 84 83 Respiratory Rate 20 20 20 Blood Pressure 122/65 Pulse Oximetry 93 L 93 L 11/03/17 13:00 11/03/17 14:00 11/03/17 15:00 Temperature Pulse Rate 82 81 79 Respiratory Rate 20 20 20 Blood Pressure 120/61 123/67 119/64 Pulse Oximetry 94 L 95 94 L 11/03/17 16:00 11/03/17 16:10 11/03/17 16:11 Temperature 97.9 F Pulse Rate 87 87 Respiratory Rate 24 20 21 Blood Pressure 135/78 Pulse Oximetry 90 L 11/03/17 17:00 11/03/17 18:00 11/03/17 18:30 Temperature Pulse Rate 84 86 83 Respiratory Rate 20 22 20 Blood Pressure 117/59 L 131/78 133/73 Pulse Oximetry 91 L 91 L 91 L 11/03/17 19:00 11/03/17 19:30 11/03/17 20:00 Temperature 98.4 F Pulse Rate 80 81 75 Respiratory Rate 20 22 20 Blood Pressure 124/69 120/72 124/68 Pulse Oximetry 93 L 94 L 95 11/03/17 20:07 11/03/17 20:09 11/03/17 20:30 Temperature Pulse Rate 75 77 Respiratory Rate 20 20 20 Blood Pressure 124/68 Pulse Oximetry 95 95 11/03/17 21:00 11/03/17 21:30 11/03/17 22:00 Temperature Pulse Rate 77 80 82 Respiratory Rate 20 21 26 H Blood Pressure 127/72 132/79 129/81 Pulse Oximetry 96 96 96 11/03/17 22:30 11/03/17 22:35 08/03/18 23:00 Temperature Pulse Rate 96 H 86 Respiratory Rate 53 H 21 14 Blood Pressure 132/105 H 143/81 H Pulse Oximetry 90 L 95 91 L 11/03/17 23:30 11/03/17 23:51 11/04/17 00:00 Temperature Pulse Rate 79 75 86 Respiratory Rate 20 20 20 Blood Pressure 118/67 117/66 Pulse Oximetry 92 L 93 L 11/04/17 00:30 11/04/17 01:00 11/04/17 01:27 Temperature Pulse Rate 75 74 Respiratory Rate 21 20 20 Blood Pressure 115/67 117/68 Pulse Oximetry 94 L 97 98 11/04/17 01:30 11/04/17 02:00 11/04/17 02:30 Temperature Pulse Rate 72 72 72 Respiratory Rate 20 20 20 Blood Pressure 118/68 116/68 116/68 Pulse Oximetry 98 98 99 11/04/17 03:00 11/04/17 03:30 11/04/17 03:48 Temperature Pulse Rate 72 73 74 Respiratory Rate 20 20 20 Blood Pressure 118/67 113/67 Pulse Oximetry 98 99 99 11/04/17 04:00 11/04/17 04:30 11/04/17 05:00 Temperature 97.9 F Pulse Rate 72 74 73 Respiratory Rate 20 21 19 Blood Pressure 112/67 112/67 117/67 Pulse Oximetry 98 97 99 11/04/17 05:30 11/04/17 06:00 11/04/17 06:30 Temperature Pulse Rate 72 86 73 Respiratory Rate 20 20 22 Blood Pressure 118/66 117/66 127/73 Pulse Oximetry 99 98 96 11/04/17 07:00 11/04/17 07:29 11/04/17 07:30 Temperature Pulse Rate 72 72 74 Respiratory Rate 20 20 21 Blood Pressure 126/69 124/68 Pulse Oximetry 98 98 11/04/17 08:00 11/04/17 08:30 11/04/17 09:00 Temperature 98.6 F Pulse Rate 75 76 73 Respiratory Rate 20 27 H 20 Blood Pressure 124/67 127/73 113/64 Pulse Oximetry 96 95 96 11/04/17 09:30 11/04/17 10:00 Temperature Pulse Rate 73 73 Respiratory Rate 20 Blood Pressure 109/61 Pulse Oximetry 96 Intake & Output 11/03/17 11/04/1718 18:59 06:59 18:59 Intake Total 3385 / 3385 510 / 510 100 / 100 Output Total 6100 / 6100 10 Balance -2715 / -2715 500 / 500 100 / 100 Weight 139 kg Intake: IV 967 / 967 450 / 450 100 / 100 Diprivan 1000 mg/100 ml Inj 1, 100 / 100 100 / 100 100 / 100 000 mg In 100 ml @ 5 MCG/KG/MIN 3.81 mls/hr IV.CONT TITRATE PRN Rx#:[id number] Unasyn Inj 3 GM In NS Inj 100 100 / 100 100 / 100 ML @ 200 mls/hr IV.SIG Q12H [facility] Rx#:[id number] Vancomycin Inj 1,700 MG In NS 517 / 517 Inj 500 ML @ 250 mls/hr IV.SIG Q12H [facility] Rx#:[id number] fentaNYL 10 mcg/mL Premix Drip 250 / 250 250 / 250 2,500 mcg In 250 ml @ 50 MCG/HR 5 mls/hr IV.SIG TITRATE PRN Rx #:[id number] Oral 0 / 0 Tube Feeding 80 / 80 Tube Irrigant 60 / 60 Water Bolus Amount 100 / 100 Other 2238 / 2238 Output: Urine 50 / 50 10 / 10 Hemodialysis Amount 6000 / 6000 Urine Amount (Catheter) 50 / 50 Indwelling Urethral Catheter 50 / 50 Other: Date of Last Bowel Movement 11/03/17 11/03/17 11/03/17 # Bowel Movements 1 0 # Incontinent Bowel Movements 1 0 - Urinary Catheter Management Indwelling Urethral Catheter Cath placed during this visit: no <Crystal Valadez - Last Filed: 11/04/17 11:13> Assessment and Plan - Assessment (1) Acute kidney injury Code(s): N17.9 - Acute kidney failure, unspecified Status: Acute Plan: Acute kidney injury with a creatinine initially at 1.33 and at day of consult 2.89 NANETTE most likely ATN from hypotension possible vancomycin toxicity with vancomycin level of 30.9. No baseline creatinine available. CT of abdomen with unremarkable kidneys. Urine negative for proteinuria Creatinine 1.33->1.95 ->2.89 ->4.22 ->5.24 UOP minimal at 50ml /24 hours Monitor strict I+O, continue indwelling anderson catheter Avoid nephrotoxins including aminoglycosides and IV contrast Continue to monitor urinary output and BMP Hemodialysis yesterday with removal of 2 liters Hemodialysis today plan to remove 3 liters, 3 K bath and calcium adjusted. <Sharon Sultana - Last Filed: 11/03/17 11:21> - Assessment (1) Acute kidney injury Code(s): N17.9 - Acute kidney failure, unspecified Status: Acute - Attending Attestation Patient seen and examined, agree with above. HD today, watch for renal recovery. Follow the urine out put and BMP. <Crystal Valadez - Last Filed: 11/04/17 11:13>
[2017-11-03] MEDS: Mupirocin 2% Nasal Oint Topical Syringe EACH NARE SCH ×2 (12:58→21:40)
[2017-11-03] MEDS: Ampicillin/Sulbactam Inj 3 GM in Sodium Chloride 0.9% Inj 100 ML IV.SIG SCH (13:01)
[2017-11-03] MEDS: fentaNYL 10 mcg/mL Premix Drip 2,500 MCG/250 ML BAG IV.SIG PRN (13:03)
--- NOTE | 2017-11-03 13:50 | P.CONNS ---
History of Present Illness Service: neurosurgery Consult date: 11/03/17 Requesting Physician: Terra Abdullahi Reason for Consult: disk protusion Primary Care Provider: UNKNOWN Chief Complaint: Fever, back pain History of Present Illness: 52-year-old male with a past medical history of alcohol dependence who sought medical attention after a friend found him in the hotel room with fever and ill appearance after episode of binge drinking. Patient has multiple bruises and states he has been falling often which he attributes to poor footwear. His primary complaint is pain and tenderness of his sacrum and L4/L5 region. He had diarrhea, nonbloody, non melena and difficult to quantify. He says he has "always drank EtOH heavily, but it has been drinking more than usual over the last 2 weeks". He was septic, on EtOH withdrawal. ED workup included CT brain which is negative, CT chest with RLL consolidation, CT abd/pelvis with wall thickening c/w colitis of ascending/transverse colon. WBC 23.5, lactic acid 11.4. In the ED he has received vancomycin, zosyn, NS 2 L bolus, magnesium sulfate 1 gram IV, Ativan 2 mg IV, Thiamine 100 mg IV, Ofirmev 1 gram IV. He was intubated and mechanically ventilated. He is on norepinephrine drip. Weaning FiO2 and ventilator. Minimal response on the ventilator on propofol and dexmedetomidine drips. Noted gram-positive cocci bacteremia. 2D echocardiogram ordered repeat blood cultures today. Currently on vancomycin and piperacillin/tazobactam. Patient is sedated with Diprivan and Fentanyl drips. On Levophed 9 mics. Renal function worse this morning with Cr: 2.89 from 1.95. Renal function continue to decline with Cr: 4.22 from 2.89 with poor output.MRI of the lumbar spine, sacrum and foot was performed. Neurosurgery consultation was requested EtOH dependence No pertinent past surgical history Family history was reviewed and non contributory to his present admision Review of Systems unobtainable due to endotracheal tube, unobtainable due to mental condition PMFSH - History History Provided By: Patient - Medical History Medical History: Medical History (Last Reviewed 11/03/17 @ 18:42 by Filippo King MD) EtOH dependence - Surgical History Surgical History: Surgical History (Last Reviewed 11/03/17 @ 18:42 by Filippo iKng MD) No pertinent past surgical history - Family History Family History: Family History (Last Reviewed 11/03/17 @ 18:42 by Filippo King MD) Uncle EtOH dependence Mother Breast cancer Father Prostate cancer Leukemia - Tobacco History Tobacco Use In Past 30 Days: Yes Smoking Status: Current every day smoker Tobacco Type: Smokeless Tobacco - Alcohol History How Often Do You Have a Drink Containing Alcohol: 4 or more times a week - Substance Use History Substance History: Unable to Obtain - Travel History Recent Travel in the [place] Within the Last 8 Weeks: No Recent Travel Out of the Country Within the Last 8 Weeks: No - Immunization History Tetanus Immunization: Unsure Hx Influenza Vaccine This Season: No Medications and Allergies Active Medications: Active Medications Acetaminophen (Tylenol Liq) 650 mg PO Q8H PRN PRN Reason: FEVER Last Admin: 11/01/17 10:18 Dose: 650 mg Acetaminophen (Tylenol) 650 mg PO UNSCH PRN PRN Reason: SEE LABEL COMMENTS Al Hydroxide/Mg Hydroxide (Milk Of Magnbrittnee Liq) 30 ml PO Q12H PRN PRN Reason: Mild Constipation Albuterol (Duoneb Neb ([place])) 1 ampul NEB Q4HR NEB [place] Last Admin: 11/03/17 12:26 Dose: 1 ampul Albuterol (Albuterol Neb (Prn)) 2.5 mg NEB Q2HR NEB PRN PRN Reason: DYSPNEA Artificial Tears (Genteal Severe Dry Eye Relief 0.3% Opth Gel) 1 drops EACH EYE BID [facility] Last Admin: 11/03/17 08:16 Dose: 1 drops Bisacodyl (Dulcolax Supp) 10 mg RECTAL DAILY PRN PRN Reason: SEVERE CONSITIPATION Chlorhexidine Gluconate (Chlorhexidine 2% Cloth) 3 pack TOPICAL DAILY@0400 [facility] Stop: 11/05/17 03:59 Last Admin: 11/03/17 03:29 Dose: 3 pack Chlorhexidine Gluconate (Chlorhexidine 2% Cloth) 3 pack TOPICAL DAILY@0400 PRN PRN Reason: Extra cloth needed Stop: 11/05/17 03:59 Chlorhexidine Gluconate (Peridex 0.12% Oral Kit) 15 ml OROPHARYNG BID@0800, 2000 [facility] Last Admin: 11/03/17 08:19 Dose: 15 ml Clonidine HCl (Catapres) 0.1 mg PO UNSCH PRN PRN Reason: SEE LABEL COMMENTS Dextrose (D50w Vial) 50 ml IV.PUSH UNSCH PRN PRN Reason: PER HYPOGLYCEMIA PROTOCOL Diphenhydramine HCl (Benadryl) 25 mg PO UNSCH PRN PRN Reason: SEE LABEL COMMENTS Flumazenil (Romazecon Inj) 0.2 mg IV.PUSH Q1M PRN PRN Reason: OVERSEDATION Gelatin (Gelfoam 12 Mm/7 Mm Topical) 1 foam TOPICAL UNSCH PRN PRN Reason: help stop bleeding from site Gentamicin Sulfate (Gentamicin Inj) 20 mg OTHER WITH DIALYSIS PRN PRN Reason: Dwell Gentamycin Lock Last Admin: 11/03/17 09:58 Dose: 20 mg Glucagon (Glucagon Inj) 1 mg OTHER PRN PRN PRN Reason: for Hypoglycemia Protocol Haloperidol Lactate (Haldol Inj) 1 mg IV.PUSH Q15M PRN PRN Reason: for severe agitation Heparin Sodium (Porcine) (Heparin Inj) 8,000 units OTHER WITH DIALYSIS PRN PRN Reason: for machine prime Heparin Sodium (Porcine) (Heparin Inj) 0 units OTHER WITH DIALYSIS PRN PRN Reason: Dwell Heparin to Fill Catheter Last Admin: 11/03/17 09:58 Dose: 1,500 units Hydrocortisone Sodium Succinate (Solucortef Inj) 50 mg IV.PUSH Q6H [place] Last Admin: 11/03/17 08:13 Dose: 50 mg Sodium Chloride (Ns Inj) 1,000 mls @ 0 mls/hr IV.SIG .Q0M [place] Last Infusion: 10/30/17 19:36 Dose: Infused Sodium Chloride (Ns Inj) 1,000 mls @ 0 mls/hr IV.SIG .Q0M [place] Last Infusion: 10/30/17 21:32 Dose: Infused Multivitamins 10 ml/ Thiamine HCl 100 mg/ Folic Acid 1 mg/Sodium Chloride 511.2 mls @ 127.8 mls/hr IV.SIG Q24H [place] Stop: 11/03/17 22:59 Last Infusion: 11/03/17 06:24 Dose: Infused Vancomycin HCl 1,700 mg/ (Sodium Chloride) 517 mls @ 250 mls/hr IV.SIG Q12H [place] Last Admin: 11/01/17 05:17 Dose: 250 mls/hr Propofol (Diprivan 1000 Mg/100 Ml Inj) 1,000 mg in 100 mls @ 3.81 mls/hr IV.CONT TITRATE PRN; Protocol PRN Reason: Per Protocol Last Admin: 11/02/17 06:40 Dose: 10 mcg/kg/min, 7.62 mls/hr Norepinephrine Bitartrate 4 mg (/ Sodium Chloride) 250 mls @ 7.5 mls/hr IV.SIG TITRATE PRN; Protocol PRN Reason: Per Protocol Last Admin: 11/01/17 22:49 Dose: 4 mcg/min, 15 mls/hr Fentanyl (Fentanyl 10 Mcg/Ml Premix Drip) 2,500 mcg in 250 mls @ 5 mls/hr IV.SIG TITRATE PRN; Protocol PRN Reason: Per Protocol Last Admin: 11/03/17 13:03 Dose: 150 mcg/hr, 15 mls/hr Ampicillin Sodium/Sulbactam (Sodium 3 gm/ Sodium Chloride) 100 mls @ 200 mls/ hr IV.SIG Q12H [place] Last Admin: 11/03/17 13:01 Dose: 100 mls/hr Albumin Human (Flexbumin 25% Inj) 100 mls @ 60 mls/hr IV.SIG WITH DIALYSIS PRN PRN Reason: hypotension / volume replace Sodium Chloride (Ns Inj) 1,000 mls @ 0 mls/hr OTHER .Q0M PRN PRN Reason: for prime and rinse back Sodium Chloride (Ns Inj) 1,000 mls @ 200 mls/hr OTHER .Q5H PRN PRN Reason: for dialyzer flush PRN Sodium Chloride (Ns Inj) 1,000 mls @ 0 mls/hr IV.CONT .Q0M PRN PRN Reason: hypotension / volume replace Insulin Aspart (Novolog Insulin Correctional Sugar Inj) 0 unit SQ Q6HR [place]; Protocol Last Admin: 11/03/17 05:33 Dose: Not Given Lactulose (Lactulose Liq) 30 ml PO DAILY PRN PRN Reason: SEVERE CONSITIPATION Lactulose (Lactulose Liq) 30 ml PO BID [facility] Last Admin: 11/03/17 08:12 Dose: 30 ml Lansoprazole (Prevacid Solutab) 30 mg NG/OG DAILY [facility] Last Admin: 11/03/17 08:13 Dose: 30 mg Lorazepam (Ativan) 1 mg PO Q4H PRN PRN Reason: for CIWA 8-10 Lorazepam (Ativan) 2 mg PO Q2H PRN PRN Reason: for CIWA 11-14 Last Admin: 11/01/17 22:50 Dose: 2 mg Lorazepam (Ativan) 1 mg PO Q4H PRN PRN Reason: for CIWA 8-10 Lorazepam (Ativan) 2 mg PO Q2H PRN PRN Reason: for CIWA 11-14 Lorazepam (Ativan Inj) 2 mg IV.PUSH Q1H PRN PRN Reason: for CIWA 15-20 Last Admin: 11/03/17 06:30 Dose: 2 mg Lorazepam (Ativan Inj) 2 mg IV.PUSH Q15M PRN PRN Reason: for CIWA > 20 Lorazepam (Ativan Inj) 1 mg IV.PUSH Q4H PRN PRN Reason: for CIWA 8-10 Lorazepam (Ativan Inj) 2 mg IV.PUSH Q2H PRN PRN Reason: for CIWA 11-14 Mannitol (Mannitol Inj) 12.5 gm IV.PUSH UNSCH PRN PRN Reason: hypotension / volume replace Metoclopramide HCl (Reglan Inj) 5 mg IV.PUSH Q8H PRN; Protocol PRN Reason: CONSTIPATION Last Admin: 11/02/17 09:30 Dose: 5 mg Mupirocin (Bactroban 2% Nasal Oint) 1 applicatio EACH NARE BID [facility] Last Admin: 11/03/17 12:58 Dose: 1 applicatio Nitroglycerin (Nitrostat Sl) 0.4 mg SL Q5M PRN PRN Reason: CHEST PAIN Ondansetron HCl (Zofran Inj) 4 mg IV.PUSH UNSCH PRN PRN Reason: WITH DIALYSIS Rifaximin (Xifaxan) 550 mg PO Q12HR [facility] Last Admin: 11/03/17 08:14 Dose: 550 mg Senna/Docusate Sodium (Leatha-Colace) 1 tab PO BID [facility] Last Admin: 11/03/17 08:14 Dose: 1 tab Sennosides (Senokot) 17.2 mg PO Q12H PRN PRN Reason: Moderate Constipation Sodium Chloride (Ns Flush) 2 ml IV.FLUSH BID [facility] Last Admin: 11/03/17 08:12 Dose: 2 ml Sodium Chloride (Ns Flush) 2 ml IV.FLUSH PRN PRN PRN Reason: FLUSH AFTER USING IV ACCESS Sodium Chloride (Ns Flush) 5 ml IV.FLUSH UNSCH PRN PRN Reason: flush each lumen during HD Terbutaline Sulfate (Brethine Inj) 1 mg SQ UNSCH PRN PRN Reason: For Extravasation Allergies Allergy/AdvReac Type Severity Reaction Status Date / Time No Known Allergies Allergy Unverified 10/30/17 17:35 Home Medications Medication Instructions Recorded Confirmed Type No Known Home Medications 10/30/17 10/30/17 History Exam Vital signs: Vital Signs 11/02/17 13:50 11/02/17 14:00 11/02/17 15:00 Temperature 98.2 F Pulse Rate 128 H 128 H 129 H Respiratory Rate 20 20 20 Blood Pressure 83/48 L 95/64 L 101/55 L Pulse Oximetry 93 L 95 11/02/17 15:26 11/02/17 16:00 11/02/17 17:00 Temperature 98.0 F Pulse Rate 135 H 94 H Respiratory Rate 20 20 21 Blood Pressure 107/63 113/57 L Pulse Oximetry 95 93 L 93 L 11/02/17 18:00 11/02/17 19:00 11/02/17 20:00 Temperature 99.0 F Pulse Rate 101 H 89 89 Respiratory Rate 32 H 20 21 Blood Pressure 118/85 103/61 108/62 Pulse Oximetry 94 L 100 11/02/17 20:17 11/02/17 20:38 11/02/17 20:52 Temperature Pulse Rate 90 Respiratory Rate 21 20 20 Blood Pressure Pulse Oximetry 96 11/02/17 21:00 11/02/17 22:00 11/02/17 23:00 Temperature Pulse Rate 87 85 86 Respiratory Rate 20 22 21 Blood Pressure Pulse Oximetry 96 92 L 94 L 11/02/17 23:49 11/02/17 23:52 11/03/17 00:00 Temperature 98.8 F Pulse Rate 85 83 Respiratory Rate 22 20 20 Blood Pressure 88/51 L Pulse Oximetry 92 L 93 L 11/03/17 00:17 11/03/17 01:00 11/03/17 01:22 Temperature Pulse Rate 85 86 Respiratory Rate 20 20 24 Blood Pressure 120/65 Pulse Oximetry 91 L 94 L 11/03/17 02:00 11/03/17 03:00 11/03/17 03:34 Temperature Pulse Rate 92 H 83 87 Respiratory Rate 20 20 20 Blood Pressure 124/67 118/60 Pulse Oximetry 93 L 92 L 11/03/17 04:00 11/03/17 04:37 11/03/17 06:00 Temperature 98.7 F Pulse Rate 83 86 Respiratory Rate 22 20 Blood Pressure 117/63 102/49 L Pulse Oximetry 92 L 93 L 11/03/17 08:00 11/03/17 08:24 11/03/17 08:29 Temperature 97.8 F Pulse Rate 82 84 Respiratory Rate 20 20 20 Blood Pressure 124/71 Pulse Oximetry 94 L 92 L 11/03/17 10:00 11/03/17 12:27 11/03/17 12:30 Temperature Pulse Rate 82 83 Respiratory Rate 20 20 Blood Pressure Pulse Oximetry 93 L Intake & Output 11/02/17 11/03/17 11/03/17 18:59 06:59 18:59 Intake Total 571 / 571 1001.2 / 1001.2 250 / 250 Output Total 2049 / 2049 50 / 50 3000 / 3000 Balance -1479 / -1479 951.2 / 951.2 -2750 / -2750 Weight 140 kg Intake: IV 350 / 350 861.2 / 861.2 250 / 250 Unasyn Inj 3 GM In NS Inj 100 100 / 100 100 / 100 ML @ 200 mls/hr IV.SIG Q12H [facility] Rx#:[id number] MVI-12 Inj 10 ML Thiamine Inj 511.2 / 511.2 100 MG Folvite Inj 1 MG In NS Inj 500 ML @ 127.8 mls/hr IV. SIG Q24H [facility] Rx#:[id number] fentaNYL 10 mcg/mL Premix Drip 250 / 250 250 / 250 250 / 250 2,500 mcg In 250 ml @ 50 MCG/HR 5 mls/hr IV.SIG TITRATE PRN Rx #:[id number] Tube Feeding 221 / 221 140 / 140 Intake (Blood Product) Amt 0 / 0 Liquid Plasma Cp2d Unit 0 / 0 [id number] Liquid Plasma Cp2d Unit 0 / 0 [id number] Output: Urine 50 / 50 Hemodialysis Amount 1999 / 1999 3000 / 3000 Urine Amount (Catheter) 50 / 50 Indwelling Urethral Catheter 50 / 50 Other: Date of Last Bowel Movement 11/03/17 11/03/17 # Bowel Movements 1 Narrative: The patient is intubated and sedated. Minimal response to painful stimuli with all 4 extremities. Cranial Nerves: Pupils equal, 3 mm round, reactive to light. Eyes appear conjugated. There was no nystagmus, no papilledema. Face musculature appeared symmetrical at rest. Face sensation, olfaction, and hearing cannot be adequately assessed due to the patient's neurological condition. The patient has a corneal reflex. The patient has a gag reflex. The sternocleidomastoid and trapezius were symmetrical. Cervical Spine: The patient's neck is soft, supple, without nuchal rigidity. Motor: His muscle tone and bulk are normal. He moves minimally all 4 extremities to pain Reflexes: Deep tendon reflexes are 2+ and symmetrical in the biceps, triceps, and brachioradialis, bilaterally, in the upper extremities. In the lower extremities, the patellar and ankles are 2+, bilaterally. There is a bilateral plantar flexion response. There is no clonus or other abnormal reflexes noted. Sensory: On examination there there is response to painful stimuli, localizing with both upper and lower extremities. Cerebellar: Examination cannot be adequately assessed due to the patient's neurological condition. Lungs: clear Heart: Regular rhythm and rate Skin: warm and dry Results - Laboratory Findings CBC and BMP: 11/03/17 04:20 11/03/17 04:20 Abnormal lab findings: Abnormal Labs 10/30/17 10/30/17 10/30/17 17:39 17:39 17:39 WBC 23.5 H RBC 3.74 L Hgb Hct MCV 104.6 H MCH 35.1 H Plt Count 76 L Neut % (Auto) 93.9 H Lymph % (Auto) 2.2 L [place] % (Auto) Neut # (Auto) 22.0 H Lymph # (Auto) 0.5 L [place] # (Auto) Seg Neuts % (Manual) Band Neuts % (Manual) 26 H Lymphocytes % (Manual) Metamyelocytes % (Man) Promyelocytes % (Man) Abs Neuts (Manual) 22.1 H Toxic Granulation Toxic Vacuolation Present H Dohle Bodies Platelet Estimate Low L Platelet Morphology Basophilic Stippling Faint H PT 19.4 H APTT 43.2 H Fibrinogen ABG pH ABG pCO2 ABG pO2 ABG HCO3 ABG O2 Content ABG Base Excess Hemoglobin Sodium 135 L Potassium Carbon Dioxide 19.5 L Anion Gap 18 H BUN Creatinine 1.33 H Estimated GFR 56 L POC Glucose Random Glucose 260 H Lactic Acid Calcium 7.8 L Prot Corrected Calcium Phosphorus Magnesium 1.1 L Total Bilirubin 5.4 H AST 174 H Alkaline Phosphatase 269 H Ammonia Total Creatine Kinase Troponin I Albumin 2.6 L Lipase 59 L TSH Free T3 Urine Clarity Urine Bacteria Urine Mucus Vancomycin Trough Salicylates Acetaminophen Serum Alcohol Complement C3 10/30/17 10/30/17 10/30/17 17:39 17:39 17:39 WBC RBC Hgb Hct MCV MCH Plt Count Neut % (Auto) Lymph % (Auto) [place] % (Auto) Neut # (Auto) Lymph # (Auto) [place] # (Auto) Seg Neuts % (Manual) Band Neuts % (Manual) Lymphocytes % (Manual) Metamyelocytes % (Man) Promyelocytes % (Man) Abs Neuts (Manual) Toxic Granulation Toxic Vacuolation Dohle Bodies Platelet Estimate Platelet Morphology Basophilic Stippling PT APTT Fibrinogen ABG pH ABG pCO2 ABG pO2 ABG HCO3 ABG O2 Content ABG Base Excess Hemoglobin Sodium Potassium Carbon Dioxide Anion Gap BUN Creatinine Estimated GFR POC Glucose Random Glucose Lactic Acid Calcium Prot Corrected Calcium Phosphorus 1.2 L Magnesium Total Bilirubin AST Alkaline Phosphatase Ammonia Total Creatine Kinase Troponin I Albumin Lipase TSH 0.250 L Free T3 Urine Clarity Urine Bacteria Urine Mucus Vancomycin Trough Salicylates Less than 1.7 L Acetaminophen Less than 2.0 L Serum Alcohol 147 H Complement C3 10/30/17 10/30/17 10/30/17 17:45 19:29 22:28 WBC RBC Hgb Hct MCV MCH Plt Count Neut % (Auto) Lymph % (Auto) [place] % (Auto) Neut # (Auto) Lymph # (Auto) [place] # (Auto) Seg Neuts % (Manual) Band Neuts % (Manual) Lymphocytes % (Manual) Metamyelocytes % (Man) Promyelocytes % (Man) Abs Neuts (Manual) Toxic Granulation Toxic Vacuolation Dohle Bodies Platelet Estimate Platelet Morphology Basophilic Stippling PT APTT Fibrinogen ABG pH ABG pCO2 ABG pO2 ABG HCO3 ABG O2 Content ABG Base Excess Hemoglobin Sodium Potassium Carbon Dioxide Anion Gap BUN Creatinine Estimated GFR POC Glucose Random Glucose Lactic Acid 11.4 H* 11.1 H* Calcium Prot Corrected Calcium Phosphorus Magnesium Total Bilirubin AST Alkaline Phosphatase Ammonia Total Creatine Kinase Troponin I Albumin Lipase TSH Free T3 Urine Clarity Hazy H Urine Bacteria Rare H Urine Mucus Few H Vancomycin Trough Salicylates Acetaminophen Serum Alcohol Complement C3 10/30/17 10/31/17 10/31/17 22:28 02:26 04:18 WBC RBC Hgb Hct MCV MCH Plt Count Neut % (Auto) Lymph % (Auto) Dundy % (Auto) Neut # (Auto) Lymph # (Auto) [place] # (Auto) Seg Neuts % (Manual) Band Neuts % (Manual) Lymphocytes % (Manual) Metamyelocytes % (Man) Promyelocytes % (Man) Abs Neuts (Manual) Toxic Granulation Toxic Vacuolation Dohle Bodies Platelet Estimate Platelet Morphology Basophilic Stippling PT APTT Fibrinogen ABG pH 7.32 L ABG pCO2 37 L ABG pO2 ABG HCO3 19 L ABG O2 Content ABG Base Excess -6.4 L Hemoglobin Sodium Potassium Carbon Dioxide Anion Gap BUN Creatinine Estimated GFR POC Glucose Random Glucose Lactic Acid 9.0 H* Calcium Prot Corrected Calcium Phosphorus Magnesium Total Bilirubin AST Alkaline Phosphatase Ammonia 44 H Total Creatine Kinase Troponin I Albumin Lipase TSH Free T3 Urine Clarity Urine Bacteria Urine Mucus Vancomycin Trough Salicylates Acetaminophen Serum Alcohol Complement C3 10/31/17 10/31/17 10/31/17 04:18 04:18 04:18 WBC 23.8 H RBC 3.70 L Hgb 12.8 L Hct 38.7 L MCV 104.6 H MCH 34.6 H Plt Count 70 L Neut % (Auto) 95.5 H Lymph % (Auto) 1.0 L [place] % (Auto) Neut # (Auto) 22.8 H Lymph # (Auto) 0.2 L [place] # (Auto) Seg Neuts % (Manual) Band Neuts % (Manual) 35 H Lymphocytes % (Manual) 1 L Metamyelocytes % (Man) 4 H Promyelocytes % (Man) Abs Neuts (Manual) 23.3 H Toxic Granulation 1+ H Toxic Vacuolation Present H Dohle Bodies Platelet Estimate Low L Platelet Morphology Enlarged H Basophilic Stippling PT 20.8 H APTT 53.0 H D Fibrinogen 206 L ABG pH ABG pCO2 ABG pO2 ABG HCO3 ABG O2 Content ABG Base Excess Hemoglobin Sodium Potassium 5.4 H D Carbon Dioxide Anion Gap BUN Creatinine 1.95 H Estimated GFR 36 L POC Glucose Random Glucose 139 H D Lactic Acid Calcium 7.1 L* Prot Corrected Calcium 7.1 L* Phosphorus Magnesium 1.2 L Total Bilirubin 6.5 H AST 173 H Alkaline Phosphatase 184 H Ammonia Total Creatine Kinase Troponin I Albumin 2.5 L Lipase TSH Free T3 1.57 L Urine Clarity Urine Bacteria Urine Mucus Vancomycin Trough Salicylates Acetaminophen Serum Alcohol Complement C3 10/31/17 10/31/17 10/31/17 12:04 12:04 12:04 WBC RBC Hgb Hct MCV MCH Plt Count Neut % (Auto) Lymph % (Auto) D[place] % (Auto) Neut # (Auto) Lymph # (Auto) Dundy # (Auto) Seg Neuts % (Manual) Band Neuts % (Manual) Lymphocytes % (Manual) Metamyelocytes % (Man) Promyelocytes % (Man) Abs Neuts (Manual) Toxic Granulation Toxic Vacuolation Dohle Bodies Platelet Estimate Platelet Morphology Basophilic Stippling PT APTT Fibrinogen ABG pH ABG pCO2 ABG pO2 ABG HCO3 ABG O2 Content ABG Base Excess Hemoglobin Sodium Potassium 5.2 H Carbon Dioxide Anion Gap BUN Creatinine Estimated GFR POC Glucose 148 H Random Glucose Lactic Acid Calcium Prot Corrected Calcium Phosphorus Magnesium Total Bilirubin AST Alkaline Phosphatase Ammonia Total Creatine Kinase 586 H Troponin I Albumin Lipase TSH Free T3 Urine Clarity Urine Bacteria Urine Mucus Vancomycin Trough Salicylates Acetaminophen Serum Alcohol Complement C3 10/31/17 10/31/17 11/01/17 13:15 18:20 04:40 WBC RBC Hgb Hct MCV MCH Plt Count Neut % (Auto) Lymph % (Auto) Dundy % (Auto) Neut # (Auto) Lymph # (Auto) Dundy # (Auto) Seg Neuts % (Manual) Band Neuts % (Manual) Lymphocytes % (Manual) Metamyelocytes % (Man) Promyelocytes % (Man) Abs Neuts (Manual) Toxic Granulation Toxic Vacuolation Dohle Bodies Platelet Estimate Platelet Morphology Basophilic Stippling PT APTT Fibrinogen ABG pH ABG pCO2 ABG pO2 ABG HCO3 ABG O2 Content ABG Base Excess Hemoglobin Sodium Potassium Carbon Dioxide Anion Gap BUN Creatinine Estimated GFR POC Glucose Random Glucose Lactic Acid 5.3 H* 4.3 H* 6.0 H* Calcium Prot Corrected Calcium Phosphorus Magnesium Total Bilirubin AST Alkaline Phosphatase Ammonia Total Creatine Kinase Troponin I Albumin Lipase TSH Free T3 Urine Clarity Urine Bacteria Urine Mucus Vancomycin Trough Salicylates Acetaminophen Serum Alcohol Complement C3 11/01/17 11/01/17 11/01/17 04:40 04:40 04:40 WBC 19.2 H RBC 3.67 L Hgb 12.6 L Hct 38.3 L MCV 104.4 H MCH 34.4 H Plt Count 56 L Neut % (Auto) 90.0 H Lymph % (Auto) 5.5 L Dundy % (Auto) Neut # (Auto) 17.3 H Lymph # (Auto) Dundy # (Auto) Seg Neuts % (Manual) Band Neuts % (Manual) 25 H Lymphocytes % (Manual) 3 L Metamyelocytes % (Man) 4 H Promyelocytes % (Man) Abs Neuts (Manual) 18.0 H Toxic Granulation Toxic Vacuolation Present H Dohle Bodies Present H Platelet Estimate Low L Platelet Morphology Basophilic Stippling PT 20.7 H APTT 67.9 H D Fibrinogen 209 L ABG pH ABG pCO2 ABG pO2 ABG HCO3 ABG O2 Content ABG Base Excess Hemoglobin Sodium Potassium Carbon Dioxide Anion Gap BUN 26 H Creatinine 2.89 H Estimated GFR 23 L POC Glucose Random Glucose Lactic Acid Calcium 7.2 L* Prot Corrected Calcium 7.3 L* Phosphorus 5.0 H D Magnesium Total Bilirubin 8.9 H AST 190 H Alkaline Phosphatase Ammonia Total Creatine Kinase 882 H Troponin I 0.73 H* Albumin 2.2 L Lipase TSH Free T3 Urine Clarity Urine Bacteria Urine Mucus Vancomycin Trough 30.6 H Salicylates Acetaminophen Serum Alcohol Complement C3 11/01/17 11/01/17 11/01/17 04:40 05:47 12:34 WBC RBC Hgb Hct MCV MCH Plt Count Neut % (Auto) Lymph % (Auto) Dundy % (Auto) Neut # (Auto) Lymph # (Auto) Dundy # (Auto) Seg Neuts % (Manual) Band Neuts % (Manual) Lymphocytes % (Manual) Metamyelocytes % (Man) Promyelocytes % (Man) Abs Neuts (Manual) Toxic Granulation Toxic Vacuolation Dohle Bodies Platelet Estimate Platelet Morphology Basophilic Stippling PT APTT Fibrinogen ABG pH 7.27 L* ABG pCO2 45 H ABG pO2 136 H ABG HCO3 20 L ABG O2 Content ABG Base Excess -5.5 L Hemoglobin Sodium Potassium Carbon Dioxide Anion Gap BUN Creatinine Estimated GFR POC Glucose 122 H Random Glucose Lactic Acid Calcium Prot Corrected Calcium Phosphorus Magnesium Total Bilirubin AST Alkaline Phosphatase Ammonia 57 H Total Creatine Kinase Troponin I Albumin Lipase TSH Free T3 Urine Clarity Urine Bacteria Urine Mucus Vancomycin Trough Salicylates Acetaminophen Serum Alcohol Complement C3 11/01/17 11/01/17 11/01/17 12:45 18:05 18:40 WBC RBC Hgb Hct MCV MCH Plt Count Neut % (Auto) Lymph % (Auto) Dundy % (Auto) Neut # (Auto) Lymph # (Auto) Dundy # (Auto) Seg Neuts % (Manual) Band Neuts % (Manual) Lymphocytes % (Manual) Metamyelocytes % (Man) Promyelocytes % (Man) Abs Neuts (Manual) Toxic Granulation Toxic Vacuolation Dohle Bodies Platelet Estimate Platelet Morphology Basophilic Stippling PT APTT Fibrinogen ABG pH ABG pCO2 ABG pO2 ABG HCO3 ABG O2 Content ABG Base Excess Hemoglobin Sodium Potassium Carbon Dioxide Anion Gap BUN Creatinine Estimated GFR POC Glucose 134 H Random Glucose Lactic Acid 5.2 H* Calcium Prot Corrected Calcium Phosphorus Magnesium Total Bilirubin AST Alkaline Phosphatase Ammonia Total Creatine Kinase Troponin I 0.53 H Albumin Lipase TSH Free T3 Urine Clarity Urine Bacteria Urine Mucus Vancomycin Trough Salicylates Acetaminophen Serum Alcohol Complement C3 11/01/17 11/02/17 11/02/17 23:38 04:00 04:00 WBC RBC Hgb Hct MCV MCH Plt Count Neut % (Auto) Lymph % (Auto) Dundy % (Auto) Neut # (Auto) Lymph # (Auto) Dundy # (Auto) Seg Neuts % (Manual) Band Neuts % (Manual) Lymphocytes % (Manual) Metamyelocytes % (Man) Promyelocytes % (Man) Abs Neuts (Manual) Toxic Granulation Toxic Vacuolation Dohle Bodies Platelet Estimate Platelet Morphology Basophilic Stippling PT 18.9 H APTT Fibrinogen ABG pH ABG pCO2 ABG pO2 ABG HCO3 ABG O2 Content ABG Base Excess Hemoglobin Sodium Potassium 5.3 H Carbon Dioxide Anion Gap BUN 43 H Creatinine 4.22 H Estimated GFR 15 L POC Glucose 140 H Random Glucose 146 H Lactic Acid Calcium 6.7 L* Prot Corrected Calcium 6.9 L* Phosphorus 7.3 H D Magnesium Total Bilirubin 11.0 H AST 173 H Alkaline Phosphatase Ammonia Total Creatine Kinase Troponin I 0.42 H Albumin 2.0 L Lipase TSH Free T3 Urine Clarity Urine Bacteria Urine Mucus Vancomycin Trough Salicylates Acetaminophen Serum Alcohol Complement C3 62 L 11/02/17 11/02/17 11/02/17 04:00 05:17 09:48 WBC 17.5 H RBC 3.50 L Hgb 12.0 L Hct 36.7 L MCV 104.9 H MCH 34.3 H Plt Count 48 L Neut % (Auto) 85.8 H Lymph % (Auto) 5.5 L [place] % (Auto) Neut # (Auto) 15.0 H Lymph # (Auto) [place] # (Auto) 1.2 H Seg Neuts % (Manual) Band Neuts % (Manual) 24 H Lymphocytes % (Manual) 5 L Metamyelocytes % (Man) Promyelocytes % (Man) Abs Neuts (Manual) 15.8 H Toxic Granulation 1+ H Toxic Vacuolation Dohle Bodies Present H Platelet Estimate Low L Platelet Morphology Enlarged H Basophilic Stippling PT APTT Fibrinogen ABG pH 7.22 L* ABG pCO2 60 H* ABG pO2 ABG HCO3 ABG O2 Content ABG Base Excess -2.9 L Hemoglobin 11.8 L Sodium Potassium Carbon Dioxide Anion Gap BUN Creatinine Estimated GFR POC Glucose 136 H Random Glucose Lactic Acid Calcium Prot Corrected Calcium Phosphorus Magnesium Total Bilirubin AST Alkaline Phosphatase Ammonia Total Creatine Kinase Troponin I Albumin Lipase TSH Free T3 Urine Clarity Urine Bacteria Urine Mucus Vancomycin Trough Salicylates Acetaminophen Serum Alcohol Complement C3 11/02/17 11/02/17 11/02/17 11:19 14:48 16:20 WBC RBC Hgb Hct MCV MCH Plt Count Neut % (Auto) Lymph % (Auto) [place] % (Auto) Neut # (Auto) Lymph # (Auto) [place] # (Auto) Seg Neuts % (Manual) Band Neuts % (Manual) Lymphocytes % (Manual) Metamyelocytes % (Man) Promyelocytes % (Man) Abs Neuts (Manual) Toxic Granulation Toxic Vacuolation Dohle Bodies Platelet Estimate Platelet Morphology Basophilic Stippling PT 15.0 H APTT Fibrinogen ABG pH 7.30 L ABG pCO2 46 H ABG pO2 ABG HCO3 ABG O2 Content 20.2 H ABG Base Excess -3.2 L Hemoglobin Sodium Potassium Carbon Dioxide Anion Gap BUN Creatinine Estimated GFR POC Glucose 141 H Random Glucose Lactic Acid Calcium Prot Corrected Calcium Phosphorus Magnesium Total Bilirubin AST Alkaline Phosphatase Ammonia Total Creatine Kinase Troponin I Albumin Lipase TSH Free T3 Urine Clarity Urine Bacteria Urine Mucus Vancomycin Trough Salicylates Acetaminophen Serum Alcohol Complement C3 11/02/17 11/02/17 11/03/17 17:16 23:06 04:20 WBC 13.9 H RBC 3.16 L Hgb 11.0 L Hct 32.7 L MCV 103.3 H MCH 34.9 H Plt Count 45 L Neut % (Auto) 83.9 H Lymph % (Auto) 6.8 L [place] % (Auto) 9.0 H Neut # (Auto) 11.7 H Lymph # (Auto) [place] # (Auto) 1.2 H Seg Neuts % (Manual) 82 H Band Neuts % (Manual) Lymphocytes % (Manual) 6 L Metamyelocytes % (Man) Promyelocytes % (Man) 1 H Abs Neuts (Manual) 12.0 H Toxic Granulation Toxic Vacuolation Dohle Bodies Platelet Estimate Low L Platelet Morphology Basophilic Stippling PT APTT Fibrinogen ABG pH ABG pCO2 ABG pO2 ABG HCO3 ABG O2 Content ABG Base Excess Hemoglobin Sodium Potassium Carbon Dioxide Anion Gap BUN Creatinine Estimated GFR POC Glucose 120 H 163 H Random Glucose Lactic Acid Calcium Prot Corrected Calcium Phosphorus Magnesium Total Bilirubin AST Alkaline Phosphatase Ammonia Total Creatine Kinase Troponin I Albumin Lipase TSH Free T3 Urine Clarity Urine Bacteria Urine Mucus Vancomycin Trough Salicylates Acetaminophen Serum Alcohol Complement C3 11/03/17 11/03/17 11/03/17 04:20 04:20 05:11 WBC RBC Hgb Hct MCV MCH Plt Count Neut % (Auto) Lymph % (Auto) [place] % (Auto) Neut # (Auto) Lymph # (Auto) [place] # (Auto) Seg Neuts % (Manual) Band Neuts % (Manual) Lymphocytes % (Manual) Metamyelocytes % (Man) Promyelocytes % (Man) Abs Neuts (Manual) Toxic Granulation Toxic Vacuolation Dohle Bodies Platelet Estimate Platelet Morphology Basophilic Stippling PT 16.8 H APTT Fibrinogen ABG pH ABG pCO2 ABG pO2 ABG HCO3 ABG O2 Content ABG Base Excess Hemoglobin Sodium Potassium Carbon Dioxide Anion Gap BUN 51 H Creatinine 5.24 H Estimated GFR 12 L POC Glucose 148 H Random Glucose 149 H Lactic Acid Calcium 6.9 L* Prot Corrected Calcium 7.1 L* Phosphorus Magnesium Total Bilirubin 12.6 H AST 163 H Alkaline Phosphatase Ammonia Total Creatine Kinase Troponin I Albumin 2.1 L Lipase TSH Free T3 Urine Clarity Urine Bacteria Urine Mucus Vancomycin Trough Salicylates Acetaminophen Serum Alcohol Complement C3 11/03/17 13:11 WBC RBC Hgb Hct MCV MCH Plt Count Neut % (Auto) Lymph % (Auto) [place] % (Auto) Neut # (Auto) Lymph # (Auto) [place] # (Auto) Seg Neuts % (Manual) Band Neuts % (Manual) Lymphocytes % (Manual) Metamyelocytes % (Man) Promyelocytes % (Man) Abs Neuts (Manual) Toxic Granulation Toxic Vacuolation Dohle Bodies Platelet Estimate Platelet Morphology Basophilic Stippling PT APTT Fibrinogen ABG pH ABG pCO2 ABG pO2 ABG HCO3 ABG O2 Content ABG Base Excess Hemoglobin Sodium Potassium Carbon Dioxide Anion Gap BUN Creatinine Estimated GFR POC Glucose 165 H Random Glucose Lactic Acid Calcium Prot Corrected Calcium Phosphorus Magnesium Total Bilirubin AST Alkaline Phosphatase Ammonia Total Creatine Kinase Troponin I Albumin Lipase TSH Free T3 Urine Clarity Urine Bacteria Urine Mucus Vancomycin Trough Salicylates Acetaminophen Serum Alcohol Complement C3 Assessment and Plan - Plan (1) Septic shock Code(s): A41.9 - Sepsis, unspecified organism; R65.21 - Severe sepsis with septic shock (2) Respiratory failure requiring intubation Code(s): J96.90 - Respiratory failure, unspecified, unspecified whether with hypoxia or hypercapnia (3) DIC (disseminated intravascular coagulation) Code(s): D65 - Disseminated intravascular coagulation [defibrination syndrome] (4) Alcohol dependence Code(s): F10.20 - Alcohol dependence, uncomplicated (5) Lactic acidemia Code(s): E87.2 - Acidosis (6) Colitis Code(s): K52.9 - Noninfective gastroenteritis and colitis, unspecified (7) Alcohol withdrawal syndrome Code(s): F10.239 - Alcohol dependence with withdrawal, unspecified (8) Hypomagnesemia Code(s): E83.42 - Hypomagnesemia (9) Coagulopathy Code(s): D68.9 - Coagulation defect, unspecified I reviewed his radiological studies Abdomen/Pelvis CT 10/30/17 17:35 CONCLUSION: 1. Mild colitis predominantly on the right side with trace free fluid and some inflammatory changes on the right. No bowel obstruction. No free air. 2. Multiple layering gallstones. 3. Subsegmental basilar airspace consolidation in the lungs. Differential diagnosis includes mild pneumonia. 4. Fatty liver enlarged to [address] 10/30/17 17:35 CONCLUSION: 1. No acute intracranial abnormalities. . Chest CTA 10/30/17 19:02 CONCLUSION: 1. Suboptimal bolus but no evidence for central pulmonary emboli. 2. Patchy airspace consolidation right lung base most characteristic of pneumonia. No significant effusion. Foot X-Ray 10/30/17 21:27 CONCLUSION: No acute findings. Moderate degenerative change. Bone spurs posterior calcaneus. Lumbar Spine CT 10/30/17 21:43 CONCLUSION: 1. No acute fracture. 2. 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 3. At L5-S1 there is a small central disc protrusion. Mild bilateral foraminal encroachment. Thoracic Spine CT 10/30/17 21:43 CONCLUSION: 1. Negative for acute traumatic injury to the thoracic spine. Small Schmorl's nodes in the lower thoracic spine. Foot MRI 10/31/17 00:00 CONCLUSION: 1. Lumbar Spine MRI 10/31/17 00:00 CONCLUSION: Extruded disc fragment with a donor site at L4-L5 lying posterior to the L4 vertebral body severe right-sided and moderate left-sided foraminal narrowing. There is no evidence of abscess. Sacrum/Coccyx MRI 10/31/17 00:00 CONCLUSION: 1. Negative MRI of the sacrum Abdomen X-Ray 11/01/17 10:38 CONCLUSION: Nonobstructive bowel gas pattern. Chest X-Ray 11/02/17 00:00 CONCLUSION: Bilateral central lines including a new left Vas-Cath in good position. Bibasilar areas of consolidation or atelectasis. Neuro checks every 1 hr. No evidence of abscess. No evidence of discitis This patient is really sick. He is not a surgical candidate at this time due to his poor medical condition Ativan as needed per [facility] protocol. Continue Precedex for now. No clinical evidence of seizure the lactic acid remains elevated so will obtain EEG to look for subclinical seizure. Continue thiamine/folic acid/multivitamin IV Checked ammonia level which is mildly elevated. Will initiate lactulose once resuscitated and hemodynamics are improved. Acute respiratory failure Aspiration pneumonia Intubated 10/31 for airway protection. [facility] Ventilator bundle CPAP trial and ventilator weaning when stabilized Antibiotics as per below Septic shock Lactic acidemia Clinically appeared very volume depleted. Received 5 L of crystalloid in the form of bolus. We will continue LR at 1 50 mL/h. Levophed to maintain mean arterial pressure greater than 65. Trend lactic acid Colitis Alcoholic hepatitis OG tube inserted in place to low intermittent wall suction following intubation. Normal-appearing GI secretions CT abdomen and pelvis demonstrates thickening of right colon extending into transverse colon. There is hepatomegaly and steatosis.. Clinical exam upon presentation was benign and did not appear c/w mesenteric ischemia. We will continue to monitor serial abdominal exams and lactic acid. Send stool for C. difficile. GI consult. Acute kidney injury Hypomagnesemia Insert Argueta to monitor intake and output every hour in the setting of shock and acute kidney injury. Check phosphorus. Replace electrolytes as indicated per ICU electrolyte replacement protocol. Septic shock Cellulitis toes bilaterally Aspiration pneumonia, right lower lobe, present on admission He received Zosyn and vancomycin in the emergency department. We will continue. Follow-up blood cultures. UA negative. Send sputum culture. Follow-up C diff, urine pneumococcal antigen, urine Legionella antigen. Obtain MRI bilat feet to evaluate for osteo. Coagulopathy DIC - Monitor coags/CBC/platelets. There is no significant active bleeding at this time, mild oozing at CVL insertion site. Acute hyperglycemia diabetes mellitus. Will check hemoglobin A1c. Monitor bedside glucose and initiate sliding scale if indicated. Checked TSH which is low, check free T3/T4. Continue Protonix for stress ulcer prophylaxis Continue Danyel covington and SCD's for DVT prophylaxis Please reconsult is needed
--- NOTE | 2017-11-03 14:59 | P.PNID ---
Subjective Remarks: GFR is 12 On HD now UOP is low off pressors Antibiotics: unasyn Past Medical History: ETOH Allergies/Adverse Reactions: Allergies No Known Allergies Allergy (Unverified 10/30/17 17:35) Objective Vital Signs 11/02/17 15:00 11/02/17 15:26 11/02/17 16:00 Temperature 98.0 F Pulse Rate 129 H 135 H Respiratory Rate 20 20 20 Blood Pressure 101/55 L 107/63 Pulse Oximetry 95 95 93 L 11/02/17 17:00 11/02/17 18:00 11/02/17 19:00 Temperature Pulse Rate 94 H 101 H 89 Respiratory Rate 21 32 H 20 Blood Pressure 113/57 L 118/85 103/61 Pulse Oximetry 93 L 94 L 11/02/17 20:00 11/02/17 20:17 11/02/17 20:38 Temperature 99.0 F Pulse Rate 89 Respiratory Rate 21 21 20 Blood Pressure 108/62 Pulse Oximetry 100 96 11/02/17 20:52 11/02/17 21:00 11/02/17 22:00 Temperature Pulse Rate 90 87 85 Respiratory Rate 20 20 22 Blood Pressure Pulse Oximetry 96 92 L 11/02/17 23:00 11/02/17 23:49 11/02/17 23:52 Temperature Pulse Rate 86 85 Respiratory Rate 21 22 20 Blood Pressure Pulse Oximetry 94 L 92 L 11/03/17 00:00 11/03/17 00:17 11/03/17 01:00 Temperature 98.8 F Pulse Rate 83 85 Respiratory Rate 20 20 20 Blood Pressure 88/51 L Pulse Oximetry 93 L 91 L 11/03/17 01:22 11/03/17 02:00 11/03/17 03:00 Temperature Pulse Rate 86 92 H 83 Respiratory Rate 24 20 20 Blood Pressure 120/65 124/67 118/60 Pulse Oximetry 94 L 93 L 92 L 11/03/17 03:34 11/03/17 04:00 11/03/17 04:37 Temperature 98.7 F Pulse Rate 87 83 Respiratory Rate 20 22 20 Blood Pressure 117/63 Pulse Oximetry 92 L 93 L 11/03/17 06:00 11/03/17 08:00 11/03/17 08:24 Temperature 97.8 F Pulse Rate 86 82 84 Respiratory Rate 20 20 Blood Pressure 102/49 L 124/71 Pulse Oximetry 94 L 11/03/17 08:29 11/03/17 10:00 11/03/17 12:27 Temperature Pulse Rate 82 83 Respiratory Rate 20 20 Blood Pressure Pulse Oximetry 92 L 11/03/17 12:30 Temperature Pulse Rate Respiratory Rate 20 Blood Pressure Pulse Oximetry 93 L Intake & Output 11/02/17 11/03/17 11/03/17 18:59 06:59 18:59 Intake Total 571 / 571 1001.2 / 1001.2 250 / 250 Output Total 2049 / 2049 50 / 50 3000 / 3000 Balance -1479 / -1479 951.2 / 951.2 -2750 / -2750 Weight 140 kg Intake: IV 350 / 350 861.2 / 861.2 250 / 250 Unasyn Inj 3 GM In NS Inj 100 100 / 100 100 / 100 ML @ 200 mls/hr IV.SIG Q12H [facility] Rx#:[id number] MVI-12 Inj 10 ML Thiamine Inj 511.2 / 511.2 100 MG Folvite Inj 1 MG In NS Inj 500 ML @ 127.8 mls/hr IV. SIG Q24H [facility] Rx#:[id number] fentaNYL 10 mcg/mL Premix Drip 250 / 250 250 / 250 250 / 250 2,500 mcg In 250 ml @ 50 MCG/HR 5 mls/hr IV.SIG TITRATE PRN Rx #:[id number] Tube Feeding 221 / 221 140 / 140 Intake (Blood Product) Amt 0 / 0 Liquid Plasma Cp2d Unit 0 / 0 [id number] Liquid Plasma Cp2d Unit 0 / 0 [id number] Output: Urine 50 / 50 Hemodialysis Amount 1999 / 1999 3000 / 3000 Urine Amount (Catheter) 50 / 50 Indwelling Urethral Catheter 50 / 50 Other: Date of Last Bowel Movement 11/03/17 11/03/17 # Bowel Movements 1 11/03/17 05:30 Stool Enteric Pathogens (PCR) - Final 10/30/17 17:50 Blood - Peripheral Aerobic Blood Culture - Final Group A beta (Strep pyogenes) 10/30/17 17:50 Blood - Peripheral Anaerobic Blood Culture - Final Group A beta (Strep pyogenes) 11/01/17 06:39 Blood - Peripheral Aerobic Blood Culture - Preliminary No growth in 2 days 11/01/17 06:39 Blood - Peripheral Anaerobic Blood Culture - Final QNS - See aerobic report. 11/01/17 04:40 Blood - Peripheral Aerobic Blood Culture - Preliminary No growth in 2 days 11/01/17 04:40 Blood - Peripheral Anaerobic Blood Culture - Preliminary No growth in 2 days 10/30/17 17:50 Blood - Peripheral Aerobic Blood Culture - Final Group A beta (Strep pyogenes) Staphylococcus aureus 10/30/17 17:50 Blood - Peripheral Anaerobic Blood Culture - Final Group A beta (Strep pyogenes) 10/31/17 04:55 Sputum - Endotracheal Gram Stain - Final 10/31/17 04:55 Sputum - Endotracheal Sputum Culture - Final Group A beta (Strep pyogenes) Lab - Hematology Results 11/02/17 11/03/17 04:00 04:20 WBC 17.5 H 13.9 H RBC 3.50 L 3.16 L Hgb 12.0 L 11.0 L Hct 36.7 L 32.7 L MCV 104.9 H 103.3 H MCH 34.3 H 34.9 H MCHC 32.7 33.8 RDW 15.2 14.8 Plt Count 48 L 45 L MPV 10.8 11.0 Prelim Diff (Auto) Slide review pending Slide review pending Neut % (Auto) 85.8 H 83.9 H Lymph % (Auto) 5.5 L 6.8 L [place] % (Auto) 6.8 9.0 H Eos % (Auto) 1.7 0.1 Baso % (Auto) 0.2 0.2 Neut # (Auto) 15.0 H 11.7 H Lymph # (Auto) 1.0 1.0 [place] # (Auto) 1.2 H 1.2 H Eos # (Auto) 0.3 0.0 Baso # (Auto) 0.0 0.0 WBC Differential Manual diff final Manual diff final Seg Neuts % (Manual) 66 82 H Band Neuts % (Manual) 24 H 3 Lymphocytes % (Manual) 5 L 6 L Monocytes % (Manual) 5 8 Promyelocytes % (Man) 1 H Abs Neuts (Manual) 15.8 H 12.0 H Differential Comment . . Toxic Granulation 1+ H Dohle Bodies Present H Platelet Estimate Low L Low L Platelet Morphology Enlarged H Normal Lab - Chemistry Results 11/01/17 11/01/17 11/01/17 18:05 18:40 21:28 Sodium Potassium Chloride Carbon Dioxide Anion Gap BUN Creatinine Estimated GFR POC Glucose 134 H Random Glucose Lactic Acid 1.9 Calcium Prot Corrected Calcium Phosphorus Total Bilirubin AST ALT Alkaline Phosphatase Troponin I 0.53 H Total Protein Albumin 11/01/17 11/02/17 11/02/17 23:38 04:00 04:00 Sodium 140 Potassium 5.3 H Chloride 105 Carbon Dioxide 26.3 Anion Gap 9 BUN 43 H Creatinine 4.22 H Estimated GFR 15 L POC Glucose 140 H Random Glucose 146 H Lactic Acid 1.0 Calcium 6.7 L* Prot Corrected Calcium 6.9 L* Phosphorus 7.3 H D Total Bilirubin 11.0 H AST 173 H ALT 38 Alkaline Phosphatase 67 Troponin I 0.42 H Total Protein 6.7 Albumin 2.0 L 11/02/17 11/02/17 11/02/17 05:17 11:19 17:16 Sodium Potassium Chloride Carbon Dioxide Anion Gap BUN Creatinine Estimated GFR POC Glucose 136 H 141 H 120 H Random Glucose Lactic Acid Calcium Prot Corrected Calcium Phosphorus Total Bilirubin AST ALT Alkaline Phosphatase Troponin I Total Protein Albumin 11/02/17 11/03/17 11/03/17 23:06 04:20 05:11 Sodium 140 Potassium 4.3 D Chloride 105 Carbon Dioxide 27.0 Anion Gap 8 BUN 51 H Creatinine 5.24 H Estimated GFR 12 L POC Glucose 163 H 148 H Random Glucose 149 H Lactic Acid Calcium 6.9 L* Prot Corrected Calcium 7.1 L* Phosphorus 3.8 D Total Bilirubin 12.6 H AST 163 H ALT 43 Alkaline Phosphatase 107 Troponin I Total Protein 6.8 Albumin 2.1 L 11/03/17 13:11 Sodium Potassium Chloride Carbon Dioxide Anion Gap BUN Creatinine Estimated GFR POC Glucose 165 H Random Glucose Lactic Acid Calcium Prot Corrected Calcium Phosphorus Total Bilirubin AST ALT Alkaline Phosphatase Troponin I Total Protein Albumin Imaging: ITS Impressions Abdomen/Pelvis CT 10/30/17 17:35 CONCLUSION: 1. Mild colitis predominantly on the right side with trace free fluid and some inflammatory changes on the right. No bowel obstruction. No free air. 2. Multiple layering gallstones. 3. Subsegmental basilar airspace consolidation in the lungs. Differential diagnosis includes mild pneumonia. 4. Fatty liver enlarged to [address] 10/30/17 17:35 CONCLUSION: 1. No acute intracranial abnormalities. . Chest CTA 10/30/17 19:02 CONCLUSION: 1. Suboptimal bolus but no evidence for central pulmonary emboli. 2. Patchy airspace consolidation right lung base most characteristic of pneumonia. No significant effusion. Foot X-Ray 10/30/17 21:27 CONCLUSION: No acute findings. Moderate degenerative change. Bone spurs posterior calcaneus. Lumbar Spine CT 10/30/17 21:43 CONCLUSION: 1. No acute fracture. 2. 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 3. At L5-S1 there is a small central disc protrusion. Mild bilateral foraminal encroachment. Thoracic Spine CT 10/30/17 21:43 CONCLUSION: 1. Negative for acute traumatic injury to the thoracic spine. Small Schmorl's nodes in the lower thoracic spine. Foot MRI 10/31/17 00:00 CONCLUSION: 1. Lumbar Spine MRI 10/31/17 00:00 CONCLUSION: Extruded disc fragment with a donor site at L4-L5 lying posterior to the L4 vertebral body severe right-sided and moderate left-sided foraminal narrowing. There is no evidence of abscess. Sacrum/Coccyx MRI 10/31/17 00:00 CONCLUSION: 1. Negative MRI of the sacrum Abdomen X-Ray 11/01/17 10:38 CONCLUSION: Nonobstructive bowel gas pattern. Chest X-Ray 11/02/17 00:00 CONCLUSION: Bilateral central lines including a new left Vas-Cath in good position. Bibasilar areas of consolidation or atelectasis. Physical Exam: GENERAL: sedated intubated SKIN: Warm and dry. HEAD: Atraumatic. Normocephalic. EYES: Pupils equal and round. No scleral icterus. No injection or drainage. ENT: No nasal bleeding or discharge. Mucous membranes pink and moist. NECK: Trachea midline. No JVD. CARDIOVASCULAR: Regular rate and rhythm. RESPIRATORY: No accessory muscle use. rhonchi to auscultation. Breath sounds equal bilaterally. GASTROINTESTINAL: Abdomen soft, tender, more distended. Hepatic and splenic margins not palpable. : small amount of dark urine in anderson bag MUSCULOSKELETAL: Extremities without clubbing, cyanosis, or edema. No obvious deformities. NEUROLOGICAL: ersponsive, more awake. No obvious cranial nerve deficits. Motor grossly within normal limits. Five out of 5 muscle strength in the arms and legs. PSYCHIATRIC: unable to a ssess Assessment and Plan - Plan GAS sepsis ? source MSSA sepsis - PNA is most likely - 2 D echo neg for veg's Acute VDRF Acute ETOH withdrawl Lactic acidosis ARF, now on HD: from [facility]N ABd distention cont Unasyn (that will cover both MSSA and GAS) chk urine eos dc vancomycin fu repeat BC chk KUB
--- NOTE | 2017-11-03 16:36 | XR ---
EXAM DATE: 11/03/2017 4:24 PM EDT AGE/SEX: 52 years / Male INDICATIONS: Distention. CLINICAL DATA: This is the patient's initial encounter. Patient reports that signs and symptoms have been present for 3 days and indicates a pain score of Nonresponsive. MEDICAL/SURGICAL HISTORY: None. None. COMPARISON: [facility] [place] [facility] [place] KUB, 11/01/2017. . FINDINGS: 3 AP supine views of the abdomen. Mildly distended air-filled stomach. Nasogastric tube is in the st omach. Mildly distended air-filled colon. Degenerative findings of lumbar spine. CONCLUSION: Increased distention of air-filled regions of the colon. Mild air-filled distention of the stomach. Electronically signed by: Alejandro Álvarez MD 11/03/2017 4:35 PM EDT
[2017-11-03] MEDS: Propofol 1000 mg/100 ml Inj 1,000 MG/100 ML BOTTLE IV.CONT PRN (22:45)
[2017-11-04] MEDS: Ampicillin/Sulbactam Inj 3 GM in Sodium Chloride 0.9% Inj 100 ML IV.SIG SCH ×2 (00:48→11:05)
[2017-11-04] MEDS: Oral Hygiene Kit OROPHARYNG SCH ×4 (00:48→15:10)
[2017-11-04] MEDS: fentaNYL 10 mcg/mL Premix Drip 2,500 MCG/250 ML BAG IV.SIG PRN (00:49)
[2017-11-04] MEDS: Insulin NovoLOG Aspart Correctional Sugar Inj SQ SCH ×5 (01:29→18:19)
[2017-11-04] MEDS: Propofol 1000 mg/100 ml Inj 1,000 MG/100 ML BOTTLE IV.CONT PRN ×5 (03:45→20:16)
[2017-11-04] MEDS: Hydrocortisone Sod Succinate 100 MG Vial IV.PUSH SCH ×4 (03:46→20:15)
[2017-11-04] MEDS: Chlorhexidine Gluconate 2% 1 Pack (2 Cloths) TOPICAL SCH (03:46)
[2017-11-04 06:27] LABS: Baso % (Auto) 0.2 % (0.0-2.0); Eos % (Auto) 0.1 % (0.0-4.0); Hematocrit 34.1 % (39.0-51.0); Hemoglobin 11.6 gm/dL (13.0-17.0); Lymph # (Auto) 0.8 th/mm3 (1.0-4.8); Lymph % (Auto) 6.9 % (9.0-44.0); Mean Corpuscular HGB Conc 33.9 % (32.0-36.0); Mean Corpuscular Hemoglobin 34.8 pg (27.0-34.0); Mean Corpuscular Volume 102.6 fL (80.0-100.0); Mean Platelet Volume 10.9 fL (7.0-11.0); Mono # (Auto) 1.4 th/mm3 (0.0-0.9); Mono % (Auto) 12.2 % (0.0-8.0); Neut % (Auto) 80.6 % (16.0-70.0); Platelet Count 53 th/mm3 (150-450); Red Blood Count 3.32 mil/mm3 (4.50-5.90); Red Cell Distribution Width 14.8 % (11.6-17.2); White Blood Count 11.1 th/mm3 (4.0-11.0)
[2017-11-04 06:38] LABS: INR 1.8 Ratio; Prothrombin Time 18.1 sec (9.8-11.6)
[2017-11-04 06:56] LABS: Anion Gap 12 meq/L (5-15); Aspartate Aminotransferase 178 U/L (15-37); Blood Urea Nitrogen 56 mg/dL (7-18); Calcium 7.5 mg/dL (8.5-10.1); Carbon Dioxide 26.9 meq/L (21.0-32.0); Chloride 102 meq/L (98-107); Glomerular Filtration Rate 10 mL/min (>89); Glucose,Random 134 mg/dL (74-106); Potassium 3.9 meq/L (3.5-5.1); Sodium 141 meq/L (136-145)
[2017-11-04 06:57] LABS: Alanine Aminotransferase 60 U/L (12-78)
[2017-11-04 06:59] LABS: Alkaline Phosphatase 155 U/L (45-117); Total Protein 6.8 g/dL (6.4-8.2)
[2017-11-04] MEDS: Chlorhexidine 0.12% Oral Kit 15 ML UDC OROPHARYNG SCH ×2 (07:58→20:16)
[2017-11-04] MEDS: rifAXIMin 550 MG Tablet PO SCH ×2 (08:06→20:15)
[2017-11-04] MEDS: Senna/Docusate Sodium 8.6/50 MG Tablet PO SCH ×2 (08:07→20:15)
[2017-11-04] MEDS: Mupirocin 2% Nasal Oint Topical Syringe EACH NARE SCH ×2 (08:07→20:15)
[2017-11-04] MEDS: Hypromellose 0.3% Opth Gel 10 GM Bottle EACH EYE SCH ×2 (08:07→20:16)
--- NOTE | 2017-11-04 08:21 | P.PNCC ---
Subjective Subjective Remarks/Hospital Course: 52-year-old male with a past medical history of alcohol dependence who sought medical attention after a friend found him in the hotel room with fever and ill appearance after episode of binge drinking. Patient has multiple bruises and states he has been falling often which he attributes to poor footwear. His primary complaint is pain and tenderness of his sacrum and L4/L5 region. Denies IVDU. Denies CP, SOB, Cough, sputum production, urinary symptoms , abdominal pain, nausea, vomiting, headache, neck pain, neck stiffness. He does report some diarrhea, nonbloody, non melena and difficult to quantify. He says he has "always drank EtOH heavily, but it has been drinking more than usual over the last 2 weeks". He is tremulous, hypertensive, tachycardic with clinical appearance of EtOH withdrawal. ED workup included CT brain which is negative, CT chest with RLL consolidation, CT abd/pelvis with wall thickening c/ w colitis of ascending/transverse colon. WBC 23.5, lactic acid 11.4. In the ED he has received vancomycin, piperacillin/tazobactam, NS 2 L bolus, magnesium sulfate 1 gram IV, Ativan 2 mg IV, Thiamine 100 mg IV, Ofirmev 1 gram IV. SUBJECTIVE: 10/31: Remains on norepinephrine drip at 8 mcg/min. Weaning FiO2 and ventilator. Minimal response on the ventilator on propofol and dexmedetomidine drips. MRI of the lumbar spine, sacrum and foot will be performed this afternoon. Noted gram-positive cocci bacteremia. 2D echocardiogram ordered repeat blood cultures today. Currently on vancomycin and piperacillin/ tazobactam. 11/01 Patient is sedated with Diprivan and Fentanyl drips. On Levophed 9 mics. Renal function worse this morning with Cr: 2.89 from 1.95. Afebrile. 11/02 Patient remains intubated and sedated. Renal function continue to decline with Cr: 4.22 from 2.89 with poor UOP. Afebrile. Levophed down 1 jaison. 11/03 Patient remains intubated and sedated on Fentanyl infusion. Afebrile. HD initiated yesterday with removal 2L. Off Levophed. 11/04: Remains intubated sedated encephalopathy. Hemodialysis yesterday and apparently only 1 L was removed creatinine now increased to 5.98. Platelet count 56. Continues to remain oliguric to anuric. Objective Vital Signs / I&O: Vital Signs 11/03/17 08:24 11/03/17 08:29 11/03/17 09:00 Temperature Pulse Rate 84 84 Respiratory Rate 20 20 21 Blood Pressure 126/70 Pulse Oximetry 92 L 94 L 11/03/17 10:00 11/03/17 11:00 11/03/17 12:00 Temperature 97.1 F L Pulse Rate 84 87 84 Respiratory Rate 20 20 20 Blood Pressure 120/60 127/68 122/65 Pulse Oximetry 93 L 93 L 93 L 11/03/17 12:27 11/03/17 12:30 11/03/17 13:00 Temperature Pulse Rate 83 82 Respiratory Rate 20 20 20 Blood Pressure 120/61 Pulse Oximetry 93 L 94 L 11/03/17 14:00 11/03/17 15:00 11/03/17 16:00 Temperature 97.9 F Pulse Rate 81 79 87 Respiratory Rate 20 20 24 Blood Pressure 123/67 119/64 135/78 Pulse Oximetry 95 94 L 90 L 11/03/17 16:10 11/03/17 16:11 11/03/17 17:00 Temperature Pulse Rate 87 84 Respiratory Rate 20 21 20 Blood Pressure 117/59 L Pulse Oximetry 91 L 11/03/17 18:00 11/03/17 18:30 11/03/17 19:00 Temperature Pulse Rate 86 83 80 Respiratory Rate 22 20 20 Blood Pressure 131/78 133/73 124/69 Pulse Oximetry 91 L 91 L 93 L 11/03/17 19:30 11/03/17 20:00 11/03/17 20:07 Temperature 98.4 F Pulse Rate 81 75 75 Respiratory Rate 22 20 20 Blood Pressure 120/72 124/68 Pulse Oximetry 94 L 95 11/03/17 20:09 11/03/17 20:30 11/03/17 21:00 Temperature Pulse Rate 77 77 Respiratory Rate 20 20 20 Blood Pressure 124/68 127/72 Pulse Oximetry 95 95 96 11/03/17 21:30 11/03/17 22:00 11/03/17 22:30 Temperature Pulse Rate 80 82 96 H Respiratory Rate 21 26 H 53 H Blood Pressure 132/79 129/81 132/105 H Pulse Oximetry 96 96 90 L 11/03/17 22:35 11/03/17 23:00 11/03/17 23:30 Temperature Pulse Rate 86 79 Respiratory Rate 21 14 20 Blood Pressure 143/81 H 118/67 Pulse Oximetry 95 91 L 92 L 11/03/17 23:51 11/04/17 00:00 11/04/17 00:30 Temperature Pulse Rate 75 86 75 Respiratory Rate 20 20 21 Blood Pressure 117/66 115/67 Pulse Oximetry 93 L 94 L 11/04/17 01:00 11/04/17 01:27 11/04/17 01:30 Temperature Pulse Rate 74 72 Respiratory Rate 20 20 20 Blood Pressure 117/68 118/68 Pulse Oximetry 97 98 98 11/04/17 02:00 11/04/17 02:30 11/04/17 03:00 Temperature Pulse Rate 72 72 72 Respiratory Rate 20 20 20 Blood Pressure 116/68 116/68 118/67 Pulse Oximetry 98 99 98 11/04/17 03:30 11/04/17 03:48 11/04/17 04:00 Temperature 97.9 F Pulse Rate 73 74 72 Respiratory Rate 20 20 20 Blood Pressure 113/67 112/67 Pulse Oximetry 99 99 98 11/04/17 04:30 11/04/17 05:00 11/04/17 05:30 Temperature Pulse Rate 74 73 72 Respiratory Rate 21 19 20 Blood Pressure 112/67 117/67 118/66 Pulse Oximetry 97 99 99 11/04/17 06:00 11/04/17 06:30 11/04/17 07:00 Temperature Pulse Rate 86 73 72 Respiratory Rate 20 22 20 Blood Pressure 117/66 127/73 126/69 Pulse Oximetry 98 96 98 11/04/17 07:29 Temperature Pulse Rate 72 Respiratory Rate 20 Blood Pressure Pulse Oximetry Intake & Output 11/03/17 11/04/17 11/04/17 18:59 06:59 18:59 Intake Total 3385 / 3385 510 / 510 Output Total 6100 / 6100 Balance -2715 / -2715 500 / 500 Weight 139 kg Intake: IV 967 / 967 450 / 450 Diprivan 1000 mg/100 ml Inj 1, 100 / 100 100 / 100 000 mg In 100 ml @ 5 MCG/KG/MIN 3.81 mls/hr IV.CONT TITRATE PRN Rx#:[id number] Unasyn Inj 3 GM In NS Inj 100 100 / 100 100 / 100 ML @ 200 mls/hr IV.SIG Q12H [facility] Rx#:[id number] Vancomycin Inj 1,700 MG In NS 517 / 517 Inj 500 ML @ 250 mls/hr IV.SIG Q12H [facility] Rx#:[id number] fentaNYL 10 mcg/mL Premix Drip 250 / 250 250 / 250 2,500 mcg In 250 ml @ 50 MCG/HR 5 mls/hr IV.SIG TITRATE PRN Rx #:[id number] Oral 0 / 0 Tube Feeding 80 / 80 Tube Irrigant 60 / 60 Water Bolus Amount 100 / 100 Other 2237 / 2237 Output: Urine 50 / 50 10 / 10 Hemodialysis Amount 6000 / 6000 Urine Amount (Catheter) 50 / 50 Indwelling Urethral Catheter 50 / 50 Other: Date of Last Bowel Movement 11/03/17 11/03/17 # Bowel Movements 1 0 # Incontinent Bowel Movements 1 0 Result Diagrams: 11/04/17 05:00 11/04/17 05:00 Objective Remarks: GENERAL: Patient is 52 yo intubated and sedated SKIN: Warm and dry. HEAD: Normocephalic. EYES: No scleral icterus. No injection or drainage. NECK: Supple, trachea midline. No JVD or lymphadenopathy. CARDIOVASCULAR: Regular rate and rhythm without murmurs, gallops, or rubs. RESPIRATORY: Breath sounds equal bilaterally. No accessory muscle use. GASTROINTESTINAL: Abdomen soft, non-tender, nondistended. MUSCULOSKELETAL: No cyanosis, or edema. Neuro: Intubated, sedated. Partially opens eyes moves extremities Assessment and Plan - Assessment and Plan Plan: NEURO/PSYCH: EtOH dependence Delirium tremens Acute toxic metabolic encephalopathy CT brain 10/30- for acute intracranial abnormality On Fentanyl infusion for sedation. Daily sedation vacation Continue thiamine/folic acid/multivitamin IV bag 3 days. 10/31 EEG: Encephalopathy, no epileptiform activity. Acetaminophen 650 mg p.o. every 8 hours as needed fever ETOH - 147 on admission RESP: Acute respiratory failure Aspiration pneumonia Intubated 10/31 for airway protection. PRVC 20 TV 550, IT:1.0, PEEP:8, FIO2: 40% Ventilator bundle, Albuterol/ipratropium aerosols every 4 hours with albuterol aerosols every 2 hours as needed CPAP trial with weaning parameters today. Check chest x-ray CV: Lactic acidemia- resolved Off Levophed monitor HR and BP keep MAP>65mmHg Lactic acid cleared 1.0 Echo showed EF 65-70% Monitor trop (trending down). on stress dose stress steroids- HC 50ml IV Q6-reduce to 50 q12 and continue to wean GI: Right/transverse mild colitis/acute Alcoholic hepatitis Hepatic steatosis Hepatosplenomegaly. Liver is 25 cm. Cholelithiasis On Lactulose 30ml BID, Continue tube feeds Nepro @20ml/hr with goal rate 40ml/hr CT abdomen and pelvis demonstrates thickening of right colon extending into transverse colon. There is hepatomegaly and steatosis. Clinical exam upon presentation was benign and did not appear c/w mesenteric ischemia. Continue to monitor serial abdominal exams and lactic acid. GI is following FEN/RENAL: Acute kidney failure Monitor renal function, I/O's, avoid nephrotoxins No hydronephrosis on CT abdomen/pelvis. Monitor renal function, I/O's, avoid nephrotoxins Renal is following- Dr. Valadez. HD initiated 11/02 with removal 2L. 3L removed 11/03 ID: Group A beta Strep bacteremia 07/05 bilaterally Cellulitis toes bilaterally Leukocytosis...trending down He received piperacillin/tazobactam and vancomycin in the emergency department. Pertinent cultures Blood culture x 2 10/30 -gram-positive cocci/strep pyogenes - BC 11/01: NGTD Sputum 10/31 -Strep Pyogenes C diff negative today urine pneumococcal antigen, urine Legionella antigen, influenza a and B- all negative Infectious disease is following- Dr. Segovia Abx per ID (Unasyn) monitor for signs of infections ( Fever, WBC) MRI foot: No abscess, HEME: Acute coagulopathy DIC - Leukocytosis Macrocytic anemia Thrombocytopenia Monitor coags/CBC/platelets. There is no significant active bleeding at this time, Monitor CBC. coags. Platelet count 54 to s/p 2u FFP 11/02 for vascath placement ENDO: Acute hyperglycemia TSH 0.25. Low T3 at 1.57. Low normal T4. ? undiagnosed diabetes mellitus. Sliding-scale insulin with aspart insulin with Accu-Cheks every 6 hours to maintain euglycemia/medium regimen MSK: L5/S1 disc protrusion Pars defect L4/L5 Not a candidate for surgical intervention at this time per Dr. King consult PROPH: SCDs for DVT prophylaxis. Avoid pharmacologic DVT prophylaxis at this time due to coagulopathy, thrombocytopenia. Lansoprazole for stress ulcer prophylaxis ACCESS: Right IJ central venous line placed 10/31. Left radial arterial line placed 11/01. Left IJ vascath placed 11/02 CCT 32 mins Code Status: Full
[2017-11-04 08:28] LABS: Lymphocytes 5 % (9-44); Monocytes 9 % (0-8); Myelocytes 2 % (0-0); Toxic Granulation 1+; Toxic Vacuolation Present
--- NOTE | 2017-11-04 08:59 | XR ---
EXAM DATE: 11/04/2017 8:48 AM EDT AGE/SEX: 52 years / Male INDICATIONS: Ileus. CLINICAL DATA: This is the patient's subsequent encounter. Patient reports that signs and symptoms h ave been present for 1 week and indicates a pain score of Nonresponsive. MEDICAL/SURGICAL HISTORY: Non-responsive. Non-responsive. [place] [facility] [place]. . FINDINGS: The abdominal bowel gas pattern is normal. No abnormal masses, calcifications, or organomegaly is s een. The osseous structures are unremarkable. CONCLUSION: Unremarkable exam. No evidence of bowel obstruction. Electronically signed by: Lali Edge MD 11/04/2017 8:58 AM EDT
--- NOTE | 2017-11-04 09:02 | XR ---
EXAM DATE: 11/04/2017 8:44 AM EDT AGE/SEX: 52 years / Male INDICATIONS: Respiratory Disease. CLINICAL DATA: This is the patient's subsequent encounter. Patient reports that signs and symptoms h ave been present for 1 week and indicates a pain score of Nonresponsive. MEDICAL/SURGICAL HISTORY: Non-responsive. Non-responsive. COMPARISON: [facility], CHEST 1V SINGLE AP, 11/02/2017. . FINDINGS: AP portable supine view of the chest demonstrates an endotracheal tube with the tip at the level of t he clavicles, stable. Right internal jugular vein central line with the tip overlying the distal SVC, stable. Left-sided central line with the tip overlying the junction of the left innominate vein and SVC. Gastric tubing extending beyond the imaged portion of the film. Heart size appears grossly normal with diffuse cephalization of pulmonary vasculature and progressive adjacent perivascular hazy opacities. There is increased hazy opacity overlying the left hemithorax and to a lesser extent the right hemithorax. The lungs are significantly hypoinflated. CONCLUSION: Stable lines and tubes. Hypoinflation of the lungs with progressive worsening airspace opacity. This may reflect pulmonary edema or volume overload or progressive infectious process. Electronically signed by: Lali Edge MD 11/04/2017 9:01 AM EDT
--- NOTE | 2017-11-04 11:20 | P.PNNP ---
Subjective Interval history: Patient remain on the vent. and on sedation, clinically same. Physical Exam Vital signs: Vital Signs 11/03/17 12:00 11/03/17 12:27 11/03/17 12:30 Temperature 97.1 F L Pulse Rate 84 83 Respiratory Rate 20 20 20 Blood Pressure 122/65 Pulse Oximetry 93 L 93 L 11/03/17 13:00 11/03/17 14:00 11/03/17 15:00 Temperature Pulse Rate 82 81 79 Respiratory Rate 20 20 20 Blood Pressure 120/61 123/67 119/64 Pulse Oximetry 94 L 95 94 L 11/03/17 16:00 11/03/17 16:10 11/03/17 16:11 Temperature 97.9 F Pulse Rate 87 87 Respiratory Rate 24 20 21 Blood Pressure 135/78 Pulse Oximetry 90 L 11/03/17 17:00 11/03/17 18:00 11/03/17 18:30 Temperature Pulse Rate 84 86 83 Respiratory Rate 20 22 20 Blood Pressure 117/59 L 131/78 133/73 Pulse Oximetry 91 L 91 L 91 L 11/03/17 19:00 11/03/17 19:30 11/03/17 20:00 Temperature 98.4 F Pulse Rate 80 81 75 Respiratory Rate 20 22 20 Blood Pressure 124/69 120/72 124/68 Pulse Oximetry 93 L 94 L 95 11/03/17 20:07 11/03/17 20:09 11/03/17 20:30 Temperature Pulse Rate 75 77 Respiratory Rate 20 20 20 Blood Pressure 124/68 Pulse Oximetry 95 95 11/03/17 21:00 11/03/17 21:30 11/03/17 22:00 Temperature Pulse Rate 77 80 82 Respiratory Rate 20 21 26 H Blood Pressure 127/72 132/79 129/81 Pulse Oximetry 96 96 96 11/03/17 22:30 11/03/17 22:35 11/03/17 23:00 Temperature Pulse Rate 96 H 86 Respiratory Rate 53 H 21 14 Blood Pressure 132/105 H 143/81 H Pulse Oximetry 90 L 95 91 L 11/03/17 23:30 11/03/17 23:51 11/04/17 00:00 Temperature Pulse Rate 79 75 86 Respiratory Rate 20 20 20 Blood Pressure 118/67 117/66 Pulse Oximetry 92 L 93 L 11/04/17 00:30 11/04/17 01:00 11/04/17 01:27 Temperature Pulse Rate 75 74 Respiratory Rate 21 20 20 Blood Pressure 115/67 117/68 Pulse Oximetry 94 L 97 98 11/04/17 01:30 11/04/17 02:00 11/04/17 02:30 Temperature Pulse Rate 72 72 72 Respiratory Rate 20 20 20 Blood Pressure 118/68 116/68 116/68 Pulse Oximetry 98 98 99 11/04/17 03:00 11/04/17 03:30 11/04/17 03:48 Temperature Pulse Rate 72 73 74 Respiratory Rate 20 20 20 Blood Pressure 118/67 113/67 Pulse Oximetry 98 99 99 11/04/17 04:00 11/04/17 04:30 11/04/17 05:00 Temperature 97.9 F Pulse Rate 72 74 73 Respiratory Rate 20 21 19 Blood Pressure 112/67 112/67 117/67 Pulse Oximetry 98 97 99 11/04/17 05:30 11/04/17 06:00 11/04/17 06:30 Temperature Pulse Rate 72 86 73 Respiratory Rate 20 20 22 Blood Pressure 118/66 117/66 127/73 Pulse Oximetry 99 98 96 11/04/17 07:00 11/04/17 07:29 11/04/17 07:30 Temperature Pulse Rate 72 72 74 Respiratory Rate 20 20 21 Blood Pressure 126/69 124/68 Pulse Oximetry 98 98 11/04/17 08:00 11/04/17 08:30 11/04/17 09:00 Temperature 98.6 F Pulse Rate 75 76 73 Respiratory Rate 20 27 H 20 Blood Pressure 124/67 127/73 113/64 Pulse Oximetry 96 95 96 11/04/17 09:30 11/04/17 10:00 Temperature Pulse Rate 73 73 Respiratory Rate 20 Blood Pressure 109/61 Pulse Oximetry 96 Intake & Output 11/03/17 11/04/17 11/04/17 18:59 06:59 18:59 Intake Total 3385 / 3385 510 / 510 100 / 100 Output Total 6100 / 6100 10 Balance -2715 / -2715 500 / 500 100 / 100 Weight 139 kg Intake: IV 967 / 967 450 / 450 100 / 100 Diprivan 1000 mg/100 ml Inj 1, 100 / 100 100 / 100 100 / 100 000 mg In 100 ml @ 5 MCG/KG/MIN 3.81 mls/hr IV.CONT TITRATE PRN Rx#:[id number] Unasyn Inj 3 GM In NS Inj 100 100 / 100 100 / 100 ML @ 200 mls/hr IV.SIG Q12H [facility] Rx#:[id number] Vancomycin Inj 1,700 MG In NS 517 / 517 Inj 500 ML @ 250 mls/hr IV.SIG Q12H [facility] Rx#:[id number] fentaNYL 10 mcg/mL Premix Drip 250 / 250 250 / 250 2,500 mcg In 250 ml @ 50 MCG/HR 5 mls/hr IV.SIG TITRATE PRN Rx #:[id number] Oral 0 / 0 Tube Feeding 80 / 80 Tube Irrigant 60 / 60 Water Bolus Amount 100 / 100 Other 2238 / 2238 Output: Urine 50 / 50 10 / 10 Hemodialysis Amount 6000 / 6000 Urine Amount (Catheter) 50 / 50 Indwelling Urethral Catheter 50 / 50 Other: Date of Last Bowel Movement 11/03/17 11/03/17 11/03/17 # Bowel Movements 1 0 # Incontinent Bowel Movements 1 0 Narrative: GENERAL: Intubated and sedated SKIN: Warm and dry. Left IJ HEAD: Normocephalic. EYES: No scleral icterus. No injection or drainage. NECK: Supple, trachea midline. No JVD or lymphadenopathy. CARDIOVASCULAR: Regular rate and rhythm without murmurs, gallops, or rubs. RESPIRATORY: Breath sounds decreased bilaterally. No accessory muscle use. Intubated GASTROINTESTINAL: Abdomen soft, non-tender, large. OG tube GENITOURINARY: Indwelling Anderson catheter, small amount of dark colored urine MUSCULOSKELETAL: No cyanosis, Mild generalized edema. - Urinary Catheter Management Indwelling Urethral Catheter Cath placed during this visit: yes Reason for continuing: Hourly intake/output Insertion date: 10/31/17 Insertion time: 10:30 Assessment and Plan - Assessment (1) Acute kidney injury Code(s): N17.9 - Acute kidney failure, unspecified Status: Acute Plan: Acute kidney injury with a creatinine initially at 1.33 and at day of consult 2.89 NANETTE most likely ATN from hypotension possible vancomycin toxicity with vancomycin level of 30.9. No baseline creatinine available. CT of abdomen with unremarkable kidneys. Urine negative for proteinuria Creatinine 1.33->1.95 ->2.89 ->4.22 ->5.24 UOP minimal at 50ml /24 hours Monitor strict I+O, continue indwelling anderson catheter Avoid nephrotoxins including aminoglycosides and IV contrast Continue to monitor urinary output and BMP Hemodialysis yesterday with removal of 3 liters Hemodialysis to continue as needed. The urine out put is low.
--- NOTE | 2017-11-04 12:33 | P.PNID ---
Subjective Remarks: GFR is 12 On HD now UOP is very low off pressors Antibiotics: unasyn Past Medical History: ETOH Allergies/Adverse Reactions: Allergies No Known Allergies Allergy (Unverified 10/30/17 17:35) Objective Vital Signs 11/03/17 12:27 11/03/17 12:30 11/03/17 13:00 Temperature Pulse Rate 83 82 Respiratory Rate 20 20 20 Blood Pressure 120/61 Pulse Oximetry 93 L 94 L 11/03/17 14:00 11/03/17 15:00 11/03/17 16:00 Temperature 97.9 F Pulse Rate 81 79 87 Respiratory Rate 20 20 24 Blood Pressure 123/67 119/64 135/78 Pulse Oximetry 95 94 L 90 L 11/03/17 16:10 11/03/17 16:11 11/03/17 17:00 Temperature Pulse Rate 87 84 Respiratory Rate 20 21 20 Blood Pressure 117/59 L Pulse Oximetry 91 L 11/03/17 18:00 11/03/17 18:30 11/03/17 19:00 Temperature Pulse Rate 86 83 80 Respiratory Rate 22 20 20 Blood Pressure 131/78 133/73 124/69 Pulse Oximetry 91 L 91 L 93 L 11/03/17 19:30 11/03/17 20:00 11/03/17 20:07 Temperature 98.4 F Pulse Rate 81 75 75 Respiratory Rate 22 20 20 Blood Pressure 120/72 124/68 Pulse Oximetry 94 L 95 11/03/17 20:09 11/03/17 20:30 11/03/17 21:00 Temperature Pulse Rate 77 77 Respiratory Rate 20 20 20 Blood Pressure 124/68 127/72 Pulse Oximetry 95 95 96 11/03/17 21:30 11/03/17 22:00 11/03/17 22:30 Temperature Pulse Rate 80 82 96 H Respiratory Rate 21 26 H 53 H Blood Pressure 132/79 129/81 132/105 H Pulse Oximetry 96 96 90 L 11/03/17 22:35 11/03/17 23:00 11/03/17 23:30 Temperature Pulse Rate 86 79 Respiratory Rate 21 14 20 Blood Pressure 143/81 H 118/67 Pulse Oximetry 95 91 L 92 L 11/03/17 23:51 11/04/17 00:00 11/04/17 00:30 Temperature Pulse Rate 75 86 75 Respiratory Rate 20 20 21 Blood Pressure 117/66 115/67 Pulse Oximetry 93 L 94 L 11/04/17 01:00 11/04/17 01:27 11/04/17 01:30 Temperature Pulse Rate 74 72 Respiratory Rate 20 20 20 Blood Pressure 117/68 118/68 Pulse Oximetry 97 98 98 11/04/17 02:00 11/04/17 02:30 11/04/17 03:00 Temperature Pulse Rate 72 72 72 Respiratory Rate 20 20 20 Blood Pressure 116/68 116/68 118/67 Pulse Oximetry 98 99 98 11/04/17 03:30 11/04/17 03:48 11/04/17 04:00 Temperature 97.9 F Pulse Rate 73 74 72 Respiratory Rate 20 20 20 Blood Pressure 113/67 112/67 Pulse Oximetry 99 99 98 11/04/17 04:30 11/04/17 05:00 11/04/17 05:30 Temperature Pulse Rate 74 73 72 Respiratory Rate 21 19 20 Blood Pressure 112/67 117/67 118/66 Pulse Oximetry 97 99 99 11/04/17 06:00 11/04/17 06:30 11/04/17 07:00 Temperature Pulse Rate 86 73 72 Respiratory Rate 20 22 20 Blood Pressure 117/66 127/73 126/69 Pulse Oximetry 98 96 98 11/04/17 07:29 11/04/17 07:30 11/04/17 08:00 Temperature 98.6 F Pulse Rate 72 74 75 Respiratory Rate 20 21 20 Blood Pressure 124/68 124/67 Pulse Oximetry 98 96 11/04/17 08:30 11/04/17 09:00 11/04/17 09:30 Temperature Pulse Rate 76 73 73 Respiratory Rate 27 H 20 20 Blood Pressure 127/73 113/64 109/61 Pulse Oximetry 95 96 96 11/04/17 10:00 11/04/17 11:20 11/04/17 11:21 Temperature Pulse Rate 73 82 Respiratory Rate 17 16 Blood Pressure Pulse Oximetry 94 L Intake & Output 11/03/17 11/04/17 11/04/17 18:59 06:59 18:59 Intake Total 3385 / 3385 510 / 510 100 / 100 Output Total 6100 / 6100 10 Balance -2715 / -2715 500 / 500 100 / 100 Weight 139 kg Intake: IV 967 / 967 450 / 450 100 / 100 Diprivan 1000 mg/100 ml Inj 1, 100 / 100 100 / 100 100 / 100 000 mg In 100 ml @ 5 MCG/KG/MIN 3.81 mls/hr IV.CONT TITRATE PRN Rx#:[id number] Unasyn Inj 3 GM In NS Inj 100 100 / 100 100 / 100 ML @ 200 mls/hr IV.SIG Q12H AMADEO Rx#:[id number] Vancomycin Inj 1,700 MG In NS 517 / 517 Inj 500 ML @ 250 mls/hr IV.SIG Q12H AMADEO Rx#:[id number] fentaNYL 10 mcg/mL Premix Drip 250 / 250 250 / 250 2,500 mcg In 250 ml @ 50 MCG/HR 5 mls/hr IV.SIG TITRATE PRN Rx #:[id number] Oral 0 / 0 Tube Feeding 80 / 80 Tube Irrigant 60 / 60 Water Bolus Amount 100 / 100 Other 2237 / 2237 Output: Urine 50 / 50 10 / 10 Hemodialysis Amount 6000 / 6000 Urine Amount (Catheter) 50 / 50 Indwelling Urethral Catheter 50 / 50 Other: Date of Last Bowel Movement 11/03/17 11/03/17 11/03/17 # Bowel Movements 1 0 # Incontinent Bowel Movements 1 0 11/01/17 06:39 Blood - Peripheral Aerobic Blood Culture - Preliminary No growth in 3 days 11/01/17 06:39 Blood - Peripheral Anaerobic Blood Culture - Final QNS - See aerobic report. 11/01/17 04:40 Blood - Peripheral Aerobic Blood Culture - Preliminary No growth in 3 days 11/01/17 04:40 Blood - Peripheral Anaerobic Blood Culture - Preliminary No growth in 3 days 11/04/17 03:45 Sputum - Endotracheal Gram Stain - Pending 11/04/17 03:45 Sputum - Endotracheal Sputum Culture - Pending 11/03/17 05:30 Stool Enteric Pathogens (PCR) - Final 10/30/17 17:50 Blood - Peripheral Aerobic Blood Culture - Final Group A beta (Strep pyogenes) 10/30/17 17:50 Blood - Peripheral Anaerobic Blood Culture - Final Group A beta (Strep pyogenes) 10/30/17 17:50 Blood - Peripheral Aerobic Blood Culture - Final Group A beta (Strep pyogenes) Staphylococcus aureus 10/30/17 17:50 Blood - Peripheral Anaerobic Blood Culture - Final Group A beta (Strep pyogenes) 10/31/17 04:55 Sputum - Endotracheal Gram Stain - Final 10/31/17 04:55 Sputum - Endotracheal Sputum Culture - Final Group A beta (Strep pyogenes) Lab - Hematology Results 11/03/17 11/04/17 04:20 05:00 WBC 13.9 H 11.1 H RBC 3.16 L 3.32 L Hgb 11.0 L 11.6 L Hct 32.7 L 34.1 L MCV 103.3 H 102.6 H MCH 34.9 H 34.8 H MCHC 33.8 33.9 RDW 14.8 14.8 Plt Count 45 L 53 L MPV 11.0 10.9 Prelim Diff (Auto) Slide review pending Slide review pending Neut % (Auto) 83.9 H 80.6 H Lymph % (Auto) 6.8 L 6.9 L Mcdowell % (Auto) 9.0 H 12.2 H Eos % (Auto) 0.1 0.1 Baso % (Auto) 0.2 0.2 Neut # (Auto) 11.7 H 9.0 H Lymph # (Auto) 1.0 0.8 L Mcdowell # (Auto) 1.2 H 1.4 H Eos # (Auto) 0.0 0.0 Baso # (Auto) 0.0 0.0 WBC Differential Manual diff final Manual diff final Seg Neuts % (Manual) 82 H 79 H Band Neuts % (Manual) 3 5 Lymphocytes % (Manual) 6 L 5 L Monocytes % (Manual) 8 9 H Myelocytes % (Man) 2 H Promyelocytes % (Man) 1 H Abs Neuts (Manual) 12.0 H 9.5 H Differential Comment . . Toxic Granulation 1+ H Toxic Vacuolation Present H Platelet Estimate Low L Low L Platelet Morphology Normal Enlarged H Lab - Chemistry Results 11/02/17 11/02/17 11/03/17 17:16 23:06 04:20 Sodium 140 Potassium 4.3 D Chloride 105 Carbon Dioxide 27.0 Anion Gap 8 BUN 51 H Creatinine 5.24 H Estimated GFR 12 L POC Glucose 120 H 163 H Random Glucose 149 H Calcium 6.9 L* Prot Corrected Calcium 7.1 L* Phosphorus 3.8 D Total Bilirubin 12.6 H AST 163 H ALT 43 Alkaline Phosphatase 107 Total Protein 6.8 Albumin 2.1 L 11/03/17 11/03/17 11/03/17 05:11 13:11 17:02 Sodium Potassium Chloride Carbon Dioxide Anion Gap BUN Creatinine Estimated GFR POC Glucose 148 H 165 H 126 H Random Glucose Calcium Prot Corrected Calcium Phosphorus Total Bilirubin AST ALT Alkaline Phosphatase Total Protein Albumin 11/04/17 11/04/17 11/04/17 00:41 05:00 05:31 Sodium 141 Potassium 3.9 Chloride 102 Carbon Dioxide 26.9 Anion Gap 12 BUN 56 H Creatinine 5.98 H Estimated GFR 10 L POC Glucose 183 H 126 H Random Glucose 134 H Calcium 7.5 L Prot Corrected Calcium Phosphorus Total Bilirubin 14.3 H AST 178 H ALT 60 Alkaline Phosphatase 155 H Total Protein 6.8 Albumin 2.0 L Imaging: ITS Impressions Abdomen/Pelvis CT 10/30/17 17:35 CONCLUSION: 1. Mild colitis predominantly on the right side with trace free fluid and some inflammatory changes on the right. No bowel obstruction. No free air. 2. Multiple layering gallstones. 3. Subsegmental basilar airspace consolidation in the lungs. Differential diagnosis includes mild pneumonia. 4. Fatty liver enlarged to [address] 10/30/17 17:35 CONCLUSION: 1. No acute intracranial abnormalities. . Chest CTA 10/30/17 19:02 CONCLUSION: 1. Suboptimal bolus but no evidence for central pulmonary emboli. 2. Patchy airspace consolidation right lung base most characteristic of pneumonia. No significant effusion. Foot X-Ray 10/30/17 21:27 CONCLUSION: No acute findings. Moderate degenerative change. Bone spurs posterior calcaneus. Lumbar Spine CT 10/30/17 21:43 CONCLUSION: 1. No acute fracture. 2. 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 3. At L5-S1 there is a small central disc protrusion. Mild bilateral foraminal encroachment. Thoracic Spine CT 10/30/17 21:43 CONCLUSION: 1. Negative for acute traumatic injury to the thoracic spine. Small Schmorl's nodes in the lower thoracic spine. Foot MRI 10/31/17 00:00 CONCLUSION: 1. Lumbar Spine MRI 10/31/17 00:00 CONCLUSION: Extruded disc fragment with a donor site at L4-L5 lying posterior to the L4 vertebral body severe right-sided and moderate left-sided foraminal narrowing. There is no evidence of abscess. Sacrum/Coccyx MRI 10/31/17 00:00 CONCLUSION: 1. Negative MRI of the sacrum Abdomen X-Ray 11/04/17 00:00 CONCLUSION: Unremarkable exam. No evidence of bowel obstruction. Chest X-Ray 11/04/17 08:13 CONCLUSION: Stable lines and tubes. Hypoinflation of the lungs with progressive worsening airspace opacity. This may reflect pulmonary edema or volume overload or progressive infectious process. Physical Exam: GENERAL: sedated intubated SKIN: Warm and dry. HEAD: Atraumatic. Normocephalic. EYES: Pupils equal and round. No scleral icterus. No injection or drainage. ENT: No nasal bleeding or discharge. Mucous membranes pink and moist. NECK: Trachea midline. No JVD. CARDIOVASCULAR: Regular rate and rhythm. RESPIRATORY: No accessory muscle use. rhonchi to auscultation. Breath sounds equal bilaterally. GASTROINTESTINAL: Abdomen soft, tender, quite distended. Hepatic and splenic margins not palpable. : small amount of dark urine in anderson bag MUSCULOSKELETAL: Extremities without clubbing, cyanosis, or edema. No obvious deformities. NEUROLOGICAL: ersponsive, more awake. No obvious cranial nerve deficits. Motor grossly within normal limits. Five out of 5 muscle strength in the arms and legs. PSYCHIATRIC: unable to assess Assessment and Plan - Plan GAS sepsis ? source MSSA sepsis - PNA is most likely - 2 D echo neg for veg's - CXR looks worse Acute VDRF Acute ETOH withdrawl Lactic acidosis ARF, now on HD: from ATN ABd distention - KUB OK cont Unasyn 1500 mgbid (that will cover both MSSA and GAS) fu repeat BC
[2017-11-05] MEDS: Insulin NovoLOG Aspart Correctional Sugar Inj SQ SCH ×4 (00:10→17:45)
[2017-11-05] MEDS: Propofol 1000 mg/100 ml Inj 1,000 MG/100 ML BOTTLE IV.CONT PRN ×7 (02:48→23:45)
[2017-11-05] MEDS: Hydrocortisone Sod Succinate 100 MG Vial IV.PUSH SCH ×3 (02:48→20:04)
[2017-11-05] MEDS: Oral Hygiene Kit OROPHARYNG SCH ×4 (04:47→15:23)
[2017-11-05] MEDS ORDERED: Dexmedetomidine Inj 200 MCG in Sodium Chlor 0.9% Inj 48 ML IV.CONT PRN (08:09)
[2017-11-05] MEDS: rifAXIMin 550 MG Tablet PO SCH ×2 (08:22→20:05)
[2017-11-05] MEDS: Hypromellose 0.3% Opth Gel 10 GM Bottle EACH EYE SCH ×2 (08:22→20:04)
[2017-11-05] MEDS: Mupirocin 2% Nasal Oint Topical Syringe EACH NARE SCH ×2 (08:22→20:03)
[2017-11-05] MEDS: Senna/Docusate Sodium 8.6/50 MG Tablet PO SCH ×2 (08:22→20:05)
[2017-11-05] MEDS: Chlorhexidine 0.12% Oral Kit 15 ML UDC OROPHARYNG SCH ×2 (08:23→20:04)
--- NOTE | 2017-11-05 08:25 | P.PNCC ---
Subjective Subjective Remarks/Hospital Course: 52-year-old male with a past medical history of alcohol dependence who sought medical attention after a friend found him in the hotel room with fever and ill appearance after episode of binge drinking. Patient has multiple bruises and states he has been falling often which he attributes to poor footwear. His primary complaint is pain and tenderness of his sacrum and L4/L5 region. Denies IVDU. Denies CP, SOB, Cough, sputum production, urinary symptoms , abdominal pain, nausea, vomiting, headache, neck pain, neck stiffness. He does report some diarrhea, nonbloody, non melena and difficult to quantify. He says he has "always drank EtOH heavily, but it has been drinking more than usual over the last 2 weeks". He is tremulous, hypertensive, tachycardic with clinical appearance of EtOH withdrawal. ED workup included CT brain which is negative, CT chest with RLL consolidation, CT abd/pelvis with wall thickening c/ w colitis of ascending/transverse colon. WBC 23.5, lactic acid 11.4. In the ED he has received vancomycin, piperacillin/tazobactam, NS 2 L bolus, magnesium sulfate 1 gram IV, Ativan 2 mg IV, Thiamine 100 mg IV, Ofirmev 1 gram IV. SUBJECTIVE: 10/31: Remains on norepinephrine drip at 8 mcg/min. Weaning FiO2 and ventilator. Minimal response on the ventilator on propofol and dexmedetomidine drips. MRI of the lumbar spine, sacrum and foot will be performed this afternoon. Noted gram-positive cocci bacteremia. 2D echocardiogram ordered repeat blood cultures today. Currently on vancomycin and piperacillin/ tazobactam. 11/01 Patient is sedated with Diprivan and Fentanyl drips. On Levophed 9 mics. Renal function worse this morning with Cr: 2.89 from 1.95. Afebrile. 11/02 Patient remains intubated and sedated. Renal function continue to decline with Cr: 4.22 from 2.89 with poor UOP. Afebrile. Levophed down 1 jaison. 11/03 Patient remains intubated and sedated on Fentanyl infusion. Afebrile. HD initiated yesterday with removal 2L. Off Levophed. 11/04: Remains intubated sedated encephalopathy. Hemodialysis yesterday and apparently only 1 L was removed creatinine now increased to 5.98. Platelet count 56. Continues to remain oliguric to anuric. 11/05: Remains intubated now sedated with propofol. Tolerating CPAP but not following commands. Lab work is pending today. Precedex will be started to facilitate vent weaning. Continues to have high residuals start Reglan IV. CXR yesterday showed pulmonary edema, will request HD with fluid removal today Objective Vital Signs / I&O: Vital Signs 11/04/17 08:30 11/04/17 09:00 11/04/17 09:30 Temperature Pulse Rate 76 73 73 Respiratory Rate 27 H 20 20 Blood Pressure 127/73 113/64 109/61 Pulse Oximetry 95 96 96 11/04/17 10:00 11/04/17 10:30 11/04/17 11:00 Temperature Pulse Rate 72 72 77 Respiratory Rate 20 20 13 Blood Pressure 111/62 112/67 114/62 Pulse Oximetry 96 95 94 L 11/04/17 11:20 11/04/17 11:21 11/04/17 11:31 Temperature Pulse Rate 82 87 Respiratory Rate 17 16 33 H Blood Pressure 125/90 Pulse Oximetry 94 L 91 L 11/04/17 12:00 11/04/17 12:30 11/04/17 13:00 Temperature 98.8 F Pulse Rate 88 93 H 77 Respiratory Rate 21 35 H 20 Blood Pressure 119/75 123/71 109/55 L Pulse Oximetry 88 L 93 L 90 L 11/04/17 13:30 11/04/17 14:00 11/04/17 14:30 Temperature Pulse Rate 74 75 76 Respiratory Rate 20 20 20 Blood Pressure 106/59 L 108/57 L 112/61 Pulse Oximetry 90 L 90 L 91 L 11/04/17 15:00 11/04/17 15:13 11/04/17 15:30 Temperature Pulse Rate 76 75 79 Respiratory Rate 20 20 20 Blood Pressure 113/61 112/59 L Pulse Oximetry 91 L 93 L 90 L 11/04/17 16:00 11/04/17 18:00 11/04/17 19:30 Temperature 98.6 F Pulse Rate 80 105 H 80 Respiratory Rate 20 20 Blood Pressure 115/58 L 121/56 L Pulse Oximetry 96 92 L 11/04/17 19:52 11/04/17 20:00 11/04/17 20:04 Temperature 97.9 F Pulse Rate 80 80 Respiratory Rate 20 20 20 Blood Pressure 120/56 L Pulse Oximetry 92 L 91 L 11/04/17 20:30 11/04/17 21:00 11/04/17 21:30 Temperature Pulse Rate 80 79 79 Respiratory Rate 20 20 20 Blood Pressure 119/58 L 120/56 L 121/60 Pulse Oximetry 92 L 92 L 92 L 11/04/17 22:00 11/04/17 22:05 11/04/17 22:30 Temperature Pulse Rate 78 77 Respiratory Rate 20 20 20 Blood Pressure 123/59 L 124/61 Pulse Oximetry 92 L 92 L 92 L 11/04/17 23:00 11/04/17 23:30 11/05/17 00:00 Temperature 98.2 F Pulse Rate 76 75 74 Respiratory Rate 20 20 20 Blood Pressure 123/61 118/58 L 123/61 Pulse Oximetry 92 L 92 L 92 L 11/05/17 00:30 11/05/17 01:00 11/05/17 01:30 Temperature Pulse Rate 76 75 74 Respiratory Rate 20 20 20 Blood Pressure 127/66 128/67 127/63 Pulse Oximetry 93 L 93 L 93 L 11/05/17 02:00 11/05/17 02:30 11/05/17 03:00 Temperature Pulse Rate 75 75 75 Respiratory Rate 20 20 20 Blood Pressure 127/65 127/64 131/66 Pulse Oximetry 93 L 93 L 93 L 11/05/17 03:30 11/05/17 03:53 11/05/17 04:00 Temperature 98.4 F Pulse Rate 75 74 76 Respiratory Rate 20 20 20 Blood Pressure 132/66 133/69 Pulse Oximetry 94 L 93 L 92 L 11/05/17 04:30 11/05/17 05:00 11/05/17 05:30 Temperature Pulse Rate 77 79 80 Respiratory Rate 20 23 20 Blood Pressure 134/68 133/75 136/75 Pulse Oximetry 93 L 93 L 96 11/05/17 06:00 11/05/17 06:30 11/05/17 07:00 Temperature Pulse Rate 79 77 76 Respiratory Rate 21 21 21 Blood Pressure 134/74 129/68 128/69 Pulse Oximetry 94 L 94 L 94 L 11/05/17 07:30 11/05/17 07:36 11/05/17 07:51 Temperature Pulse Rate 77 78 Respiratory Rate 18 20 Blood Pressure 135/74 Pulse Oximetry 94 L 94 L 11/05/17 07:55 11/05/17 08:00 Temperature 98.7 F Pulse Rate 78 Respiratory Rate 16 Blood Pressure 131/72 Pulse Oximetry 93 L 94 L Intake & Output 11/04/17 11/05/17 11/05/17 18:59 06:59 18:59 Intake Total 510 / 510 490 / 490 Output Total 600 / 600 20 / 20 Balance -90 / -90 470 / 470 Weight 138.5 kg Intake: IV 400 / 400 400 / 400 Diprivan 1000 mg/100 ml Inj 1, 300 / 300 400 / 400 000 mg In 100 ml @ 5 MCG/KG/MIN 3.81 mls/hr IV.CONT TITRATE PRN Rx#:[id number] Unasyn Inj 3 GM In NS Inj 100 100 / 100 ML @ 200 mls/hr IV.SIG Q12H AMADEO Rx#:[id number] Oral 0 / 0 Tube Feeding 20 / 20 90 / 90 Tube Irrigant 90 / 90 Output: Urine 20 / 20 Gastric Drainage 600 / 600 Orogastric Tube 600 / 600 Other: Date of Last Bowel Movement 11/03/17 11/03/17 11/03/17 # Bowel Movements 0 Result Diagrams: 11/04/17 05:00 11/04/17 05:00 Objective Remarks: GENERAL: Patient is 52 yo intubated and sedated with propofol SKIN: Warm and dry. HEAD: Normocephalic. EYES: No scleral icterus. No injection or drainage. NECK: Supple, trachea midline. No JVD or lymphadenopathy. CARDIOVASCULAR: Regular rate and rhythm without murmurs, gallops, or rubs. RESPIRATORY: Breath sounds equal bilaterally. Few basilar crackles GASTROINTESTINAL: Abdomen soft, non-tender, nondistended. MUSCULOSKELETAL: No cyanosis, or edema. Neuro: Intubated, sedated. Partially opens eyes moves extremities, did not follow commands Assessment and Plan - Problem List (1) Septic shock Code(s): A41.9 - Sepsis, unspecified organism; R65.21 - Severe sepsis with septic shock Status: Deleted (2) Respiratory failure requiring intubation Code(s): J96.90 - Respiratory failure, unspecified, unspecified whether with hypoxia or hypercapnia Status: Deleted (3) DIC (disseminated intravascular coagulation) Code(s): D65 - Disseminated intravascular coagulation [defibrination syndrome] Status: Deleted (4) Alcohol dependence Code(s): F10.20 - Alcohol dependence, uncomplicated Status: Deleted (5) Lactic acidemia Code(s): E87.2 - Acidosis Status: Deleted (6) Colitis Code(s): K52.9 - Noninfective gastroenteritis and colitis, unspecified Status : Deleted (7) Alcohol withdrawal syndrome Code(s): F10.239 - Alcohol dependence with withdrawal, unspecified Status: Deleted (8) Hypomagnesemia Code(s): E83.42 - Hypomagnesemia Status: Deleted (9) Coagulopathy Code(s): D68.9 - Coagulation defect, unspecified Status: Deleted - Assessment and Plan Plan: NEURO/PSYCH: Delirium tremens Acute toxic metabolic encephalopathy EtOH dependence CT brain 10/30- for acute intracranial abnormality On propofol for sedation and vent synchrony. Start Precedex to facilitate vent weaning Continue thiamine/folic acid/multivitamin 10/31 EEG: Encephalopathy, no epileptiform activity. Acetaminophen 650 mg p.o. every 8 hours as needed fever ETOH - 147 on admission RESP: Acute respiratory failure Aspiration pneumonia Intubated 10/31 for airway protection. PRVC 20 TV 550, IT:1.0, PEEP:8, FIO2: 40% Ventilator bundle, daily CPAP trials but mental status will not permit extubation Albuterol/ipratropium aerosols every 4 hours with albuterol aerosols every 2 hours as needed CV: Fluid overload/pulmonary edema Lactic acidemia- resolved Off Levophed monitor HR and BP keep MAP>65mmHg Lactic acid cleared 1.0 Echo showed EF 65-70% Monitor trop (trending down). on stress dose stress steroids- HC 50ml IV Q6-reduce to 50 q12 and continue to wean Hemodialysis for fluid removal GI: Right/transverse mild colitis/acute Alcoholic hepatitis Hepatic steatosis Hepatosplenomegaly. Liver is 25 cm. Cholelithiasis On Lactulose 30ml BID, Continue tube feeds Nepro @20ml/hr with goal rate 40ml/hr CT abdomen and pelvis demonstrates thickening of right colon extending into transverse colon. There is hepatomegaly and steatosis. Clinical exam upon presentation was benign and did not appear c/w mesenteric ischemia. Continue to monitor serial abdominal exams and lactic acid. GI is following FEN/RENAL: Acute kidney failure No hydronephrosis on CT abdomen/pelvis. Monitor renal function, I/O's, avoid nephrotoxins Renal is following- Dr. Valadez. HD initiated 11/02 with removal 2L. 3L removed 11/03 Will need hemodialysis today due to worsening pulmonary edema ID: Group A beta Strep bacteremia 07/05 bilaterally Cellulitis toes bilaterally Leukocytosis...trending down He received piperacillin/tazobactam and vancomycin in the emergency department. Blood culture x 2 10/30 -gram-positive cocci/strep pyogenes - BC 11/01: NGTD Sputum 10/31 -Strep Pyogenes C diff negative urine pneumococcal antigen, urine Legionella antigen, influenza a and B- all negative Infectious disease is following- Dr. Segovia Abx per ID (Unasyn) monitor for signs of infections ( Fever, WBC) MRI foot: No abscess, HEME: Acute coagulopathy DIC Leukocytosis Macrocytic anemia Thrombocytopenia Monitor coags/CBC/platelets. There is no significant active bleeding at this time, Monitor CBC. coags. s/p 2u FFP 11/02 for vascath placement ENDO: Acute hyperglycemia ? undiagnosed diabetes mellitus. Sliding-scale insulin with aspart insulin with Accu-Cheks every 6 hours to maintain euglycemia/medium regimen MSK: L5/S1 disc protrusion Pars defect L4/L5 Not a candidate for surgical intervention at this time per Dr. King consult PROPH: SCDs for DVT prophylaxis. Avoid pharmacologic DVT prophylaxis at this time due to coagulopathy, thrombocytopenia. Lansoprazole for stress ulcer prophylaxis ACCESS: Right IJ central venous line placed 10/31. Left radial arterial line placed 11/01. Left IJ vascath placed 11/02 CCT 31 mins Code Status: Full (7) Alcohol withdrawal syndrome Qualifiers: Complication of substance-induced condition: with unspecified complication Qualified Code(s): F10.239 - Alcohol dependence with withdrawal, unspecified
[2017-11-05 08:46] LABS: Hematocrit 33.4 % (39.0-51.0); Hemoglobin 11.4 gm/dL (13.0-17.0); Mean Corpuscular HGB Conc 34.2 % (32.0-36.0); Mean Corpuscular Hemoglobin 34.7 pg (27.0-34.0); Mean Corpuscular Volume 101.2 fL (80.0-100.0); Mean Platelet Volume 10.5 fL (7.0-11.0); Platelet Count 77 th/mm3 (150-450); Red Cell Distribution Width 14.9 % (11.6-17.2); White Blood Count 12.1 th/mm3 (4.0-11.0)
[2017-11-05 09:06] LABS: Alanine Aminotransferase 67 U/L (12-78); Albumin 1.8 g/dL (3.4-5.0); Anion Gap 14 meq/L (5-15); Aspartate Aminotransferase 140 U/L (15-37); Blood Urea Nitrogen 87 mg/dL (7-18); Calcium 7.5 mg/dL (8.5-10.1); Carbon Dioxide 25.5 meq/L (21.0-32.0); Chloride 100 meq/L (98-107); Glomerular Filtration Rate 7 mL/min (>89); Glucose,Random 140 mg/dL (74-106); Potassium 4.1 meq/L (3.5-5.1); Sodium 139 meq/L (136-145)
[2017-11-05 09:08] LABS: Alkaline Phosphatase 151 U/L (45-117); Total Protein 6.9 g/dL (6.4-8.2)
[2017-11-05] MEDS: Dexmedetomidine Inj 1,000 MCG in Sodium Chlor 0.9% Inj 240 ML IV.CONT PRN ×2 (13:05→23:46)
[2017-11-05] MEDS: Ampicillin/Sulbactam Inj 3 GM in Sodium Chloride 0.9% Inj 100 ML IV.SIG SCH ×4 (15:22→23:46)
--- NOTE | 2017-11-05 17:37 | P.PNNP ---
Subjective Interval history: Patient seen during HD, remain intubated and sedated. Physical Exam Vital signs: Vital Signs 11/04/17 18:00 11/04/17 19:30 11/04/17 19:52 Temperature Pulse Rate 105 H 80 Respiratory Rate 20 20 Blood Pressure 121/56 L Pulse Oximetry 92 L 92 L 11/04/17 20:00 11/04/17 20:04 11/04/17 20:30 Temperature 97.9 F Pulse Rate 80 80 80 Respiratory Rate 20 20 20 Blood Pressure 120/56 L 119/58 L Pulse Oximetry 91 L 92 L 11/04/17 21:00 11/04/17 21:30 11/04/17 22:00 Temperature Pulse Rate 79 79 78 Respiratory Rate 20 20 20 Blood Pressure 120/56 L 121/60 123/59 L Pulse Oximetry 92 L 92 L 92 L 11/04/17 22:05 11/04/17 22:30 11/04/17 23:00 Temperature Pulse Rate 77 76 Respiratory Rate 20 20 20 Blood Pressure 124/61 123/61 Pulse Oximetry 92 L 92 L 92 L 11/04/17 23:30 11/05/17 00:00 11/05/17 00:30 Temperature 98.2 F Pulse Rate 75 74 76 Respiratory Rate 20 20 20 Blood Pressure 118/58 L 123/61 127/66 Pulse Oximetry 92 L 92 L 93 L 11/05/17 01:00 11/05/17 01:30 11/05/17 02:00 Temperature Pulse Rate 75 74 75 Respiratory Rate 20 20 20 Blood Pressure 128/67 127/63 127/65 Pulse Oximetry 93 L 93 L 93 L 11/05/17 02:30 11/05/17 03:00 11/05/17 03:30 Temperature Pulse Rate 75 75 75 Respiratory Rate 20 20 20 Blood Pressure 127/64 131/66 132/66 Pulse Oximetry 93 L 93 L 94 L 11/05/17 03:53 11/05/17 04:00 11/05/17 04:30 Temperature 98.4 F Pulse Rate 74 76 77 Respiratory Rate 20 20 20 Blood Pressure 133/69 134/68 Pulse Oximetry 93 L 92 L 93 L 11/05/17 05:00 11/05/17 05:30 11/05/17 06:00 Temperature Pulse Rate 79 80 79 Respiratory Rate 23 20 21 Blood Pressure 133/75 136/75 134/74 Pulse Oximetry 93 L 96 94 L 11/05/17 06:30 11/05/17 07:00 11/05/17 07:30 Temperature Pulse Rate 77 76 77 Respiratory Rate 21 21 18 Blood Pressure 129/68 128/69 135/74 Pulse Oximetry 94 L 94 L 94 L 11/05/17 07:36 11/05/17 07:51 11/05/17 07:55 Temperature Pulse Rate 78 Respiratory Rate 20 Blood Pressure Pulse Oximetry 94 L 93 L 11/05/17 08:00 11/05/17 08:30 11/05/17 09:00 Temperature 98.7 F Pulse Rate 78 79 77 Respiratory Rate 16 26 H 22 Blood Pressure 131/72 142/79 H 139/77 Pulse Oximetry 94 L 95 93 L 11/05/17 09:30 11/05/17 09:57 11/05/17 10:00 Temperature Pulse Rate 76 75 75 Respiratory Rate 19 24 Blood Pressure 136/75 137/75 Pulse Oximetry 92 L 91 L 11/05/17 10:30 11/05/17 11:00 11/05/17 11:23 Temperature Pulse Rate 76 71 Respiratory Rate 29 H 23 17 Blood Pressure 139/71 134/72 Pulse Oximetry 90 L 93 L 93 L 11/05/17 11:30 11/05/17 12:00 11/05/17 12:15 Temperature 98.6 F Pulse Rate 67 69 69 Respiratory Rate 14 9 L 10 L Blood Pressure 124/69 125/64 118/60 Pulse Oximetry 93 L 91 L 89 L 11/05/17 12:30 11/05/17 12:45 11/05/17 13:00 Temperature Pulse Rate 69 68 68 Respiratory Rate 9 L 9 L 20 Blood Pressure 123/59 L 113/58 L 103/53 L Pulse Oximetry 95 88 L 88 L 11/05/17 13:15 11/05/17 13:30 11/05/17 13:45 Temperature Pulse Rate 70 65 67 Respiratory Rate 23 21 23 Blood Pressure 106/55 L 108/54 L 108/56 L Pulse Oximetry 87 L 86 L 86 L 11/05/17 13:54 11/05/17 14:00 11/05/17 14:15 Temperature Pulse Rate 68 68 67 Respiratory Rate 24 26 H Blood Pressure 101/53 L 103/56 L Pulse Oximetry 86 L 87 L 11/05/17 14:30 08/05/18 15:00 11/05/17 15:30 Temperature Pulse Rate 68 69 70 Respiratory Rate 25 H 20 20 Blood Pressure 100/56 L 128/70 132/73 Pulse Oximetry 86 L 94 L 93 L 11/05/17 16:00 Temperature 98.6 F Pulse Rate 70 Respiratory Rate 20 Blood Pressure 134/73 Pulse Oximetry 92 L Intake & Output 11/04/17 11/05/17 11/05/17 18:59 06:59 18:59 Intake Total 510 / 510 490 / 490 300 / 300 Output Total 600 / 600 20 / 20 5000 / 5000 Balance -90 / -90 470 / 470 -4700 / -4700 Weight 138.5 kg Intake: IV 400 / 400 400 / 400 300 / 300 Diprivan 1000 mg/100 ml Inj 1, 300 / 300 400 / 400 100 / 100 000 mg In 100 ml @ 5 MCG/KG/MIN 3.81 mls/hr IV.CONT TITRATE PRN Rx#:[id number] Unasyn Inj 3 GM In NS Inj 100 100 / 100 200 / 200 ML @ 200 mls/hr IV.SIG Q12H AMADEO Rx#:[id number] Oral 0 / 0 Tube Feeding 20 / 20 90 / 90 Tube Irrigant 90 / 90 Output: Urine 20 / 20 Hemodialysis Amount 5000 / 5000 Gastric Drainage 600 / 600 Orogastric Tube 600 / 600 Other: Date of Last Bowel Movement 11/03/17 11/03/17 11/03/17 # Bowel Movements 0 Narrative: GENERAL: Intubated and sedated SKIN: Warm and dry. Left IJ HEAD: Normocephalic. EYES: No scleral icterus. No injection or drainage. NECK: Supple, trachea midline. No JVD or lymphadenopathy. CARDIOVASCULAR: Regular rate and rhythm without murmurs, gallops, or rubs. RESPIRATORY: Breath sounds decreased bilaterally. No accessory muscle use. Intubated GASTROINTESTINAL: Abdomen soft, non-tender, large. OG tube GENITOURINARY: Indwelling Anderson catheter, small amount of dark colored urine MUSCULOSKELETAL: No cyanosis, Mild generalized edema. - Urinary Catheter Management Indwelling Urethral Catheter Cath placed during this visit: yes Reason for continuing: Hourly intake/output Insertion date: 10/31/17 Insertion time: 10:30 Assessment and Plan - Assessment (1) Acute kidney injury Code(s): N17.9 - Acute kidney failure, unspecified Status: Acute Plan: Acute kidney injury with a creatinine initially at 1.33 and at day of consult 2.89 NANETTE most likely ATN from hypotension possible vancomycin toxicity with vancomycin level of 30.9. No baseline creatinine available. CT of abdomen with unremarkable kidneys. Urine negative for proteinuria Creatinine 1.33->1.95 ->2.89 ->4.22 ->5.24 UOP minimal at 50ml /24 hours Monitor strict I+O, continue indwelling anderson catheter Avoid nephrotoxins including aminoglycosides and IV contrast Continue to monitor urinary output and BMP Hemodialysis again today, trying to remove 4-5 liters. The urine out put is low. BP is stable, follow urine out put and BMP. HD as needed.
[2017-11-06 05:08] LABS: Hematocrit 37.4 % (39.0-51.0); Hemoglobin 12.7 gm/dL (13.0-17.0); Mean Corpuscular Hemoglobin 34.4 pg (27.0-34.0); Mean Corpuscular Volume 101.1 fL (80.0-100.0); Mean Platelet Volume 10.9 fL (7.0-11.0); Platelet Count 78 th/mm3 (150-450); White Blood Count 11.5 th/mm3 (4.0-11.0)
[2017-11-06 05:20] LABS: Alkaline Phosphatase 156 U/L (45-117); Total Protein 7.3 g/dL (6.4-8.2)
[2017-11-06 05:21] LABS: Alanine Aminotransferase 73 U/L (12-78); Albumin 1.9 g/dL (3.4-5.0); Anion Gap 15 meq/L (5-15); Aspartate Aminotransferase 130 U/L (15-37); Blood Urea Nitrogen 84 mg/dL (7-18); Calcium 7.5 mg/dL (8.5-10.1); Carbon Dioxide 23.6 meq/L (21.0-32.0); Chloride 102 meq/L (98-107); Glomerular Filtration Rate 7 mL/min (>89); Glucose,Random 149 mg/dL (74-106); Potassium 4.8 meq/L (3.5-5.1); Sodium 141 meq/L (136-145)
[2017-11-06] MEDS: Insulin NovoLOG Aspart Correctional Sugar Inj SQ SCH ×5 (05:21→23:39)
[2017-11-06] MEDS: Oral Hygiene Kit OROPHARYNG SCH ×4 (05:22→23:39)
--- NOTE | 2017-11-06 05:31 | XR ---
EXAM DATE: 11/06/2017 5:23 AM EDT AGE/SEX: 52 years / Male INDICATIONS: Shortness of breath. Possible respiratory disease. CLINICAL DATA: This is the patient's subsequent encounter. Patient reports that signs and symptoms h ave been present for 1 week and indicates a pain score of Nonresponsive. MEDICAL/SURGICAL HISTORY: Non-responsive. Non-responsive. COMPARISON: [facility], CHEST 1V SINGLE AP, 11/04/2017. . FINDINGS: Left lower lobe consolidation. Endotracheal tube, left jugular line, right jugular line and enteric t ube identified. Small left effusion. Osseous structures are intact. CONCLUSION: Left lower lobe airspace disease and small left effusion suspected. Electronically signed by: Nemesio Reina MD 11/06/2017 5:30 AM EDT
[2017-11-06] MEDS: Chlorhexidine 0.12% Oral Kit 15 ML UDC OROPHARYNG SCH ×2 (08:08→21:01)
[2017-11-06] MEDS: Hydrocortisone Sod Succinate 100 MG Vial IV.PUSH SCH ×2 (08:09→21:00)
[2017-11-06] MEDS: rifAXIMin 550 MG Tablet PO SCH ×2 (08:10→21:01)
[2017-11-06] MEDS: Senna/Docusate Sodium 8.6/50 MG Tablet PO SCH ×2 (08:10→21:00)
[2017-11-06] MEDS: Mupirocin 2% Nasal Oint Topical Syringe EACH NARE SCH ×2 (08:10→21:00)
[2017-11-06] MEDS: Hypromellose 0.3% Opth Gel 10 GM Bottle EACH EYE SCH ×2 (08:13→21:00)
[2017-11-06] MEDS: Dexmedetomidine Inj 1,000 MCG in Sodium Chlor 0.9% Inj 240 ML IV.CONT PRN ×2 (09:00→17:45)
--- NOTE | 2017-11-06 09:26 | P.PNCC ---
Subjective Subjective Remarks/Hospital Course: 52-year-old male with a past medical history of alcohol dependence who sought medical attention after a friend found him in the hotel room with fever and ill appearance after episode of binge drinking. Patient has multiple bruises and states he has been falling often which he attributes to poor footwear. His primary complaint is pain and tenderness of his sacrum and L4/L5 region. Denies IVDU. Denies CP, SOB, Cough, sputum production, urinary symptoms , abdominal pain, nausea, vomiting, headache, neck pain, neck stiffness. He does report some diarrhea, nonbloody, non melena and difficult to quantify. He says he has "always drank EtOH heavily, but it has been drinking more than usual over the last 2 weeks". He is tremulous, hypertensive, tachycardic with clinical appearance of EtOH withdrawal. ED workup included CT brain which is negative, CT chest with RLL consolidation, CT abd/pelvis with wall thickening c/ w colitis of ascending/transverse colon. WBC 23.5, lactic acid 11.4. In the ED he has received vancomycin, piperacillin/tazobactam, NS 2 L bolus, magnesium sulfate 1 gram IV, Ativan 2 mg IV, Thiamine 100 mg IV, Ofirmev 1 gram IV. SUBJECTIVE: 10/31: Remains on norepinephrine drip at 8 mcg/min. Weaning FiO2 and ventilator. Minimal response on the ventilator on propofol and dexmedetomidine drips. MRI of the lumbar spine, sacrum and foot will be performed this afternoon. Noted gram-positive cocci bacteremia. 2D echocardiogram ordered repeat blood cultures today. Currently on vancomycin and piperacillin/ tazobactam. 11/01 Patient is sedated with Diprivan and Fentanyl drips. On Levophed 9 mics. Renal function worse this morning with Cr: 2.89 from 1.95. Afebrile. 11/02 Patient remains intubated and sedated. Renal function continue to decline with Cr: 4.22 from 2.89 with poor UOP. Afebrile. Levophed down 1 jaison. 11/03 Patient remains intubated and sedated on Fentanyl infusion. Afebrile. HD initiated yesterday with removal 2L. Off Levophed. 11/04: Remains intubated sedated encephalopathy. Hemodialysis yesterday and apparently only 1 L was removed creatinine now increased to 5.98. Platelet count 56. Continues to remain oliguric to anuric. 11/05: Remains intubated now sedated with propofol. Tolerating CPAP but not following commands. Lab work is pending today. Precedex will be started to facilitate vent weaning. Continues to have high residuals start Reglan IV. CXR yesterday showed pulmonary edema, will request HD with fluid removal today 11/06 Patient remains intubated and sedated with Precedex and Diprivan infusion. Afebrile. On trickle feeds due to high residuals. s/p HD yesterday with 6L fluid removal. Objective Vital Signs / I&O: Vital Signs 11/05/17 09:30 11/05/17 09:57 11/05/17 10:00 Temperature Pulse Rate 76 75 75 Respiratory Rate 19 24 Blood Pressure 136/75 137/75 Pulse Oximetry 92 L 91 L 11/05/17 10:30 11/05/17 11:00 11/05/17 11:23 Temperature Pulse Rate 76 71 Respiratory Rate 29 H 23 17 Blood Pressure 139/71 134/72 Pulse Oximetry 90 L 93 L 93 L 11/05/17 11:30 11/05/17 12:00 11/05/17 12:15 Temperature 98.6 F Pulse Rate 67 69 69 Respiratory Rate 14 9 L 10 L Blood Pressure 124/69 125/64 118/60 Pulse Oximetry 93 L 91 L 89 L 11/05/17 12:30 11/05/17 12:45 11/05/17 13:00 Temperature Pulse Rate 69 68 68 Respiratory Rate 9 L 9 L 20 Blood Pressure 123/59 L 113/58 L 103/53 L Pulse Oximetry 95 88 L 88 L 11/05/17 13:15 11/05/17 13:30 11/05/17 13:45 Temperature Pulse Rate 70 65 67 Respiratory Rate 23 21 23 Blood Pressure 106/55 L 108/54 L 108/56 L Pulse Oximetry 87 L 86 L 86 L 11/05/17 13:54 11/05/17 14:00 11/05/17 14:15 Temperature Pulse Rate 68 68 67 Respiratory Rate 24 26 H Blood Pressure 101/53 L 103/56 L Pulse Oximetry 86 L 87 L 11/05/17 14:30 11/05/17 15:00 11/05/17 15:30 Temperature Pulse Rate 68 69 70 Respiratory Rate 25 H 20 20 Blood Pressure 100/56 L 128/70 132/73 Pulse Oximetry 86 L 94 L 93 L 11/05/17 16:00 11/05/17 17:46 11/05/17 20:00 Temperature 98.6 F 98.3 F Pulse Rate 70 68 62 Respiratory Rate 20 20 Blood Pressure 134/73 148/80 H Pulse Oximetry 92 L 92 L 11/05/17 21:30 11/05/17 22:00 11/06/17 00:00 Temperature 98.1 F Pulse Rate 61 63 Respiratory Rate 20 20 Blood Pressure 134/83 Pulse Oximetry 91 L 91 L 11/06/17 00:47 11/06/17 02:00 11/06/17 03:54 Temperature Pulse Rate 62 61 Respiratory Rate 20 20 Blood Pressure Pulse Oximetry 90 L 11/06/17 04:00 11/06/17 04:39 11/06/17 06:00 Temperature 98.6 F Pulse Rate 61 61 Respiratory Rate 20 22 Blood Pressure 118/67 Pulse Oximetry 91 L 92 L 11/06/17 07:38 Temperature Pulse Rate Respiratory Rate 20 Blood Pressure Pulse Oximetry 92 L Intake & Output 11/05/17 11/06/17 11/06/17 18:59 06:59 18:59 Intake Total 507 / 507 919 / 919 Output Total 5020 / 5020 0 / 0 Balance -4513 / -4513 919 / 919 Weight 133.5 kg Intake: IV 400 / 400 550 / 550 Precedex Inj 1,000 MCG In NS 250 / 250 Inj 240 ML @ 0.2 MCG/KG/HR 7 mls/hr IV.CONT TITRATE PRN Rx#: [id number] Diprivan 1000 mg/100 ml Inj 1, 200 / 200 200 / 200 000 mg In 100 ml @ 5 MCG/KG/MIN 3.81 mls/hr IV.CONT TITRATE PRN Rx#:[id number] Unasyn Inj 3 GM In NS Inj 100 200 / 200 100 / 100 ML @ 200 mls/hr IV.SIG Q12H AMADEO Rx#:[id number] Oral 0 / 0 Tube Feeding 119 / 119 Tube Irrigant 90 / 90 250 / 250 Output: Urine 0 / 0 Hemodialysis Amount 5000 / 5000 Urine Amount (Catheter) Indwelling Urethral Catheter Other: Date of Last Bowel Movement 11/03/17 11/05/17 # Bowel Movements 1 0 Result Diagrams: 11/06/17 04:30 11/06/17 04:30 Other Results: Laboratory Results - last 12 hr 11/05/17 11/06/17 11/06/17 23:43 04:30 04:30 WBC 11.5 H RBC 3.70 L Hgb 12.7 L Hct 37.4 L MCV 101.1 H MCH 34.4 H MCHC 34.0 RDW 15.0 Plt Count 78 L MPV 10.9 Sodium 141 Potassium 4.8 Chloride 102 Carbon Dioxide 23.6 Anion Gap 15 BUN 84 H Creatinine 8.09 H Estimated GFR 7 L POC Glucose 174 H Random Glucose 149 H Calcium 7.5 L Total Bilirubin 13.1 H AST 130 H ALT 73 Alkaline Phosphatase 156 H Total Protein 7.3 Albumin 1.9 L 11/06/17 11/06/17 05:20 08:19 WBC RBC Hgb Hct MCV MCH MCHC RDW Plt Count MPV Sodium Potassium Chloride Carbon Dioxide Anion Gap BUN Creatinine Estimated GFR POC Glucose 147 H 149 H Random Glucose Calcium Total Bilirubin AST ALT Alkaline Phosphatase Total Protein Albumin Imaging: Abdomen/Pelvis CT 10/30/17 17:35 CONCLUSION: 1. Mild colitis predominantly on the right side with trace free fluid and some inflammatory changes on the right. No bowel obstruction. No free air. 2. Multiple layering gallstones. 3. Subsegmental basilar airspace consolidation in the lungs. Differential diagnosis includes mild pneumonia. 4. Fatty liver enlarged to [address] 10/30/17 17:35 CONCLUSION: 1. No acute intracranial abnormalities. . Chest CTA 10/30/17 19:02 CONCLUSION: 1. Suboptimal bolus but no evidence for central pulmonary emboli. 2. Patchy airspace consolidation right lung base most characteristic of pneumonia. No significant effusion. Foot X-Ray 10/30/17 21:27 CONCLUSION: No acute findings. Moderate degenerative change. Bone spurs posterior calcaneus. Lumbar Spine CT 10/30/17 21:43 CONCLUSION: 1. No acute fracture. 2. 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 3. At L5-S1 there is a small central disc protrusion. Mild bilateral foraminal encroachment. Thoracic Spine CT 10/30/17 21:43 CONCLUSION: 1. Negative for acute traumatic injury to the thoracic spine. Small Schmorl's nodes in the lower thoracic spine. Foot MRI 10/31/17 00:00 CONCLUSION: 1. Lumbar Spine MRI 10/31/17 00:00 CONCLUSION: Extruded disc fragment with a donor site at L4-L5 lying posterior to the L4 vertebral body severe right-sided and moderate left-sided foraminal narrowing. There is no evidence of abscess. Sacrum/Coccyx MRI 10/31/17 00:00 CONCLUSION: 1. Negative MRI of the sacrum Abdomen X-Ray 11/04/17 00:00 CONCLUSION: Unremarkable exam. No evidence of bowel obstruction. Chest X-Ray 11/06/17 06:00 CONCLUSION: Left lower lobe airspace disease and small left effusion suspected. Objective Remarks: GENERAL: Patient is 52 yo intubated and sedated with propofol SKIN: Warm and dry. HEAD: Normocephalic. EYES: No scleral icterus. No injection or drainage. NECK: Supple, trachea midline. No JVD or lymphadenopathy. CARDIOVASCULAR: Regular rate and rhythm without murmurs, gallops, or rubs. RESPIRATORY: Breath sounds equal bilaterally. Few basilar crackles GASTROINTESTINAL: Abdomen soft, non-tender, nondistended. MUSCULOSKELETAL: No cyanosis, or edema. Neuro: Intubated, sedated. Partially opens eyes moves extremities, did not follow commands Assessment and Plan - Problem List (1) Septic shock Code(s): A41.9 - Sepsis, unspecified organism; R65.21 - Severe sepsis with septic shock Status: Deleted (2) Respiratory failure requiring intubation Code(s): J96.90 - Respiratory failure, unspecified, unspecified whether with hypoxia or hypercapnia Status: Deleted (3) DIC (disseminated intravascular coagulation) Code(s): D65 - Disseminated intravascular coagulation [defibrination syndrome] Status: Deleted (4) Alcohol dependence Code(s): F10.20 - Alcohol dependence, uncomplicated Status: Deleted (5) Lactic acidemia Code(s): E87.2 - Acidosis Status: Deleted (6) Colitis Code(s): K52.9 - Noninfective gastroenteritis and colitis, unspecified Status : Deleted (7) Alcohol withdrawal syndrome Code(s): F10.239 - Alcohol dependence with withdrawal, unspecified Status: Deleted (8) Hypomagnesemia Code(s): E83.42 - Hypomagnesemia Status: Deleted (9) Coagulopathy Code(s): D68.9 - Coagulation defect, unspecified Status: Deleted - Assessment and Plan Plan: NEURO/PSYCH: Delirium tremens Acute toxic metabolic encephalopathy EtOH dependence CT brain 10/30- for acute intracranial abnormality On propofol for sedation and vent synchrony. Precedex to facilitate vent weaning Continue thiamine/folic acid/multivitamin 10/31 EEG: Encephalopathy, no epileptiform activity. Acetaminophen 650 mg p.o. every 8 hours as needed fever ETOH - 147 on admission RESP: Acute respiratory failure Aspiration pneumonia Intubated 10/31 for airway protection. PRVC 20 TV 550, IT:1.0, PEEP:8, FIO2: 40% Ventilator bundle, daily CPAP trials but mental status will not permit extubation Albuterol/ipratropium aerosols every 4 hours with albuterol aerosols every 2 hours as needed CV: Fluid overload/pulmonary edema Lactic acidemia- resolved Off Levophed monitor HR and BP keep MAP>65mmHg Lactic acid cleared 1.0 Echo showed EF 65-70% Monitor trop (trending down). on stress dose stress steroids- HC 50ml IV q12 continue to wean GI: Right/transverse mild colitis/acute Alcoholic hepatitis Hepatic steatosis Hepatosplenomegaly. Liver is 25 cm. Cholelithiasis On Lactulose 30ml BID, Continue tube feeds Nepro @10ml/hr with goal rate 40ml/hr CT abdomen and pelvis demonstrates thickening of right colon extending into transverse colon. There is hepatomegaly and steatosis. GI is following Check KUB abdomen r/o ileus FEN/RENAL: Acute kidney failure No hydronephrosis on CT abdomen/pelvis. Monitor renal function, I/O's, avoid nephrotoxins Renal is following- Dr. Valadez. HD initiated 11/02 with removal 2L. 6L removed 11/05 ID: Group A beta Strep bacteremia 07/05 bilaterally Cellulitis toes bilaterally Leukocytosis...trending down He received piperacillin/tazobactam and vancomycin in the emergency department. Blood culture x 2 10/30 -gram-positive cocci/strep pyogenes - BC 11/01: NGTD Sputum 11/04: NGTD Sputum 10/31 -Strep Pyogenes C diff negative urine pneumococcal antigen, urine Legionella antigen, influenza a and B- all negative Infectious disease is following- Dr. Juliette Rodriguez per ID (Unasyn) monitor for signs of infections ( Fever, WBC) MRI foot: No abscess, HEME: Acute coagulopathy DIC Leukocytosis Macrocytic anemia Thrombocytopenia Monitor coags/CBC/platelets. There is no significant active bleeding at this time, Monitor CBC. coags. s/p 2u FFP 11/02 for vascath placement ENDO: Acute hyperglycemia ? undiagnosed diabetes mellitus. Sliding-scale insulin with aspart insulin with Accu-Cheks every 6 hours to maintain euglycemia/medium regimen MSK: L5/S1 disc protrusion Pars defect L4/L5 Not a candidate for surgical intervention at this time per Dr. King consult PROPH: SCDs for DVT prophylaxis. Avoid pharmacologic DVT prophylaxis at this time due to coagulopathy, thrombocytopenia. Lansoprazole for stress ulcer prophylaxis ACCESS: Right IJ central venous line placed 10/31. Left radial arterial line placed 11/01. Left IJ vascath placed 11/02 CCT 30 mins (7) Alcohol withdrawal syndrome Qualifiers: Complication of substance-induced condition: with unspecified complication Qualified Code(s): F10.239 - Alcohol dependence with withdrawal, unspecified
[2017-11-06] MEDS: Propofol 1000 mg/100 ml Inj 1,000 MG/100 ML BOTTLE IV.CONT PRN ×2 (10:00→18:00)
--- NOTE | 2017-11-06 10:36 | XR ---
EXAM DATE: 11/06/2017 10:31 AM EDT AGE/SEX: 52 years / Male INDICATIONS: Evaluate for ileus. CLINICAL DATA: This is the patient's subsequent encounter. Patient reports that signs and symptoms h ave been present for 3 days and indicates a pain score of Nonresponsive. MEDICAL/SURGICAL HISTORY: Non-responsive. Non-responsive. COMPARISON: [facility] [place], ABDOMEN 1V KUB, 11/04/2017. . FINDINGS: The abdominal bowel gas pattern is normal. There appears to be a nasogastric tube which enters the gastric lumen. Tip is in the expected location of the gastric body. No abnormal masses, calcification s, or organomegaly is seen. The osseous structures are unremarkable. CONCLUSION: Nonobstructive bowel gas pattern. No pneumoperitoneum. Electronically signed by: Kendall Vazquez MD 11/06/2017 10:35 AM EDT
[2017-11-06 10:59] LABS: ABG Base Excess -0.8 mmol/L (-2-2); ABG PCO2 30 mmHg (38-42); ABG PO2 67 mmHG (61-120)
[2017-11-06] MEDS: Ampicillin/Sulbactam Inj 3 GM in Sodium Chloride 0.9% Inj 100 ML IV.SIG SCH (12:15)
--- NOTE | 2017-11-06 12:49 | P.PNID ---
Subjective Remarks: On HD ANuric on vent no fever Antibiotics: unasyn Past Medical History: ETOH Allergies/Adverse Reactions: Allergies No Known Allergies Allergy (Unverified 10/30/17 17:35) Objective Vital Signs 11/05/17 12:45 11/05/17 13:00 11/05/17 13:15 Temperature Pulse Rate 68 68 70 Respiratory Rate 9 L 20 23 Blood Pressure 113/58 L 103/53 L 106/55 L Pulse Oximetry 88 L 88 L 87 L 11/05/17 13:30 11/05/17 13:45 11/05/17 13:54 Temperature Pulse Rate 65 67 68 Respiratory Rate 21 23 Blood Pressure 108/54 L 108/56 L Pulse Oximetry 86 L 86 L 11/05/17 14:00 11/05/17 14:15 11/05/17 14:30 Temperature Pulse Rate 68 67 68 Respiratory Rate 24 26 H 25 H Blood Pressure 101/53 L 103/56 L 100/56 L Pulse Oximetry 86 L 87 L 86 L 11/05/17 15:00 11/05/17 15:30 11/05/17 16:00 Temperature 98.6 F Pulse Rate 69 70 70 Respiratory Rate 20 20 20 Blood Pressure 128/70 132/73 134/73 Pulse Oximetry 94 L 93 L 92 L 11/05/17 17:46 11/05/17 20:00 11/05/17 21:30 Temperature 98.3 F Pulse Rate 68 62 Respiratory Rate 20 20 Blood Pressure 148/80 H Pulse Oximetry 92 L 91 L 11/05/17 22:00 11/05/17 23:30 11/06/17 00:00 Temperature 98.1 F Pulse Rate 61 63 63 Respiratory Rate 20 20 Blood Pressure 139/85 134/83 Pulse Oximetry 90 L 91 L 11/06/17 00:30 11/06/17 00:47 11/06/17 01:00 Temperature Pulse Rate 63 60 Respiratory Rate 20 20 20 Blood Pressure 131/84 Pulse Oximetry 90 L 90 L 91 L 11/06/17 01:21 11/06/17 01:30 11/06/17 02:00 Temperature Pulse Rate 62 62 62 Respiratory Rate 20 20 20 Blood Pressure 121/69 122/70 121/67 Pulse Oximetry 91 L 91 L 91 L 11/06/17 02:30 11/06/17 03:00 11/06/17 03:30 Temperature Pulse Rate 62 62 61 Respiratory Rate 20 20 20 Blood Pressure 120/67 120/67 120/67 Pulse Oximetry 91 L 91 L 91 L 11/06/17 03:54 11/06/17 04:00 11/06/17 04:30 Temperature 98.6 F Pulse Rate 61 61 60 Respiratory Rate 20 20 20 Blood Pressure 118/67 117/64 Pulse Oximetry 91 L 91 L 11/06/17 04:39 11/06/17 05:00 11/06/17 05:30 Temperature Pulse Rate 61 61 Respiratory Rate 22 21 21 Blood Pressure 116/68 115/68 Pulse Oximetry 92 L 92 L 92 L 11/06/17 06:00 11/06/17 06:30 11/06/17 07:00 Temperature Pulse Rate 61 61 60 Respiratory Rate 22 20 20 Blood Pressure 110/68 111/69 108/65 Pulse Oximetry 91 L 92 L 92 L 11/06/17 07:30 11/06/17 07:38 11/06/17 08:00 Temperature Pulse Rate 60 60 Respiratory Rate 20 20 20 Blood Pressure 108/67 110/67 Pulse Oximetry 92 L 92 L 91 L 11/06/17 08:30 11/06/17 09:00 11/06/17 09:30 Temperature Pulse Rate 58 L 63 63 Respiratory Rate 20 24 20 Blood Pressure 103/64 109/67 105/66 Pulse Oximetry 91 L 93 L 92 L 11/06/17 10:00 11/06/17 10:01 11/06/17 10:30 Temperature Pulse Rate 62 59 L 59 L Respiratory Rate 20 20 20 Blood Pressure 112/68 109/67 Pulse Oximetry 93 L 92 L 92 L 11/06/17 11:00 11/06/17 11:29 Temperature Pulse Rate 62 Respiratory Rate 20 12 Blood Pressure 110/67 Pulse Oximetry 92 L 92 L Intake & Output 11/05/17 11/06/17 11/06/17 18:59 06:59 18:59 Intake Total 507 / 507 919 / 919 100 / 100 Output Total 5020 / 5020 0 / 0 Balance -4513 / -4513 919 / 919 100 / 100 Weight 133.5 kg Intake: IV 400 / 400 550 / 550 100 / 100 Precedex Inj 1,000 MCG In NS 250 / 250 Inj 240 ML @ 0.2 MCG/KG/HR 7 mls/hr IV.CONT TITRATE PRN Rx#: [id number] Diprivan 1000 mg/100 ml Inj 1, 200 / 200 200 / 200 100 / 100 000 mg In 100 ml @ 5 MCG/KG/MIN 3.81 mls/hr IV.CONT TITRATE PRN Rx#:[id number] Unasyn Inj 3 GM In NS Inj 100 200 / 200 100 / 100 ML @ 200 mls/hr IV.SIG Q12H AMADEO Rx#:[id number] Oral 0 / 0 Tube Feeding 119 / 119 Tube Irrigant 90 / 90 250 / 250 Output: Urine 0 / 0 Hemodialysis Amount 5000 / 5000 Urine Amount (Catheter) Indwelling Urethral Catheter Other: Date of Last Bowel Movement 11/03/17 11/05/17 11/05/17 # Bowel Movements 1 0 11/04/17 03:45 Sputum - Endotracheal Gram Stain - Final 11/04/17 03:45 Sputum - Endotracheal Sputum Culture - Final No growth in 48 hours 11/01/17 04:40 Blood - Peripheral Aerobic Blood Culture - Final No growth in 5 days 11/01/17 04:40 Blood - Peripheral Anaerobic Blood Culture - Final No growth in 5 days 11/01/17 06:39 Blood - Peripheral Aerobic Blood Culture - Final No growth in 5 days 11/01/17 06:39 Blood - Peripheral Anaerobic Blood Culture - Final QNS - See aerobic report. 11/03/17 05:30 Stool Enteric Pathogens (PCR) - Final 10/30/17 17:50 Blood - Peripheral Aerobic Blood Culture - Final Group A beta (Strep pyogenes) 10/30/17 17:50 Blood - Peripheral Anaerobic Blood Culture - Final Group A beta (Strep pyogenes) 10/30/17 17:50 Blood - Peripheral Aerobic Blood Culture - Final Group A beta (Strep pyogenes) Staphylococcus aureus 10/30/17 17:50 Blood - Peripheral Anaerobic Blood Culture - Final Group A beta (Strep pyogenes) Lab - Hematology Results 11/05/17 11/06/17 08:30 04:30 WBC 12.1 H 11.5 H RBC 3.30 L 3.70 L Hgb 11.4 L 12.7 L Hct 33.4 L 37.4 L MCV 101.2 H 101.1 H MCH 34.7 H 34.4 H MCHC 34.2 34.0 RDW 14.9 15.0 Plt Count 77 L D 78 L MPV 10.5 10.9 Lab - Chemistry Results 11/05/17 11/05/17 11/05/17 00:10 05:10 08:30 Sodium 139 Potassium 4.1 Chloride 100 Carbon Dioxide 25.5 Anion Gap 14 BUN 87 H Creatinine 8.31 H Estimated GFR 7 L POC Glucose 149 H 137 H Random Glucose 140 H Calcium 7.5 L Total Bilirubin 13.9 H AST 140 H ALT 67 Alkaline Phosphatase 151 H Total Protein 6.9 Albumin 1.8 L 11/05/17 11/06/17 11/06/17 23:43 04:30 05:20 Sodium 141 Potassium 4.8 Chloride 102 Carbon Dioxide 23.6 Anion Gap 15 BUN 84 H Creatinine 8.09 H Estimated GFR 7 L POC Glucose 174 H 147 H Random Glucose 149 H Calcium 7.5 L Total Bilirubin 13.1 H AST 130 H ALT 73 Alkaline Phosphatase 156 H Total Protein 7.3 Albumin 1.9 L 11/06/17 11/06/17 08:19 11:39 Sodium Potassium Chloride Carbon Dioxide Anion Gap BUN Creatinine Estimated GFR POC Glucose 149 H 137 H Random Glucose Calcium Total Bilirubin AST ALT Alkaline Phosphatase Total Protein Albumin Imaging: ITS Impressions Abdomen/Pelvis CT 10/30/17 17:35 CONCLUSION: 1. Mild colitis predominantly on the right side with trace free fluid and some inflammatory changes on the right. No bowel obstruction. No free air. 2. Multiple layering gallstones. 3. Subsegmental basilar airspace consolidation in the lungs. Differential diagnosis includes mild pneumonia. 4. Fatty liver enlarged to [address] 10/30/17 17:35 CONCLUSION: 1. No acute intracranial abnormalities. . Chest CTA 10/30/17 19:02 CONCLUSION: 1. Suboptimal bolus but no evidence for central pulmonary emboli. 2. Patchy airspace consolidation right lung base most characteristic of pneumonia. No significant effusion. Foot X-Ray 10/30/17 21:27 CONCLUSION: No acute findings. Moderate degenerative change. Bone spurs posterior calcaneus. Lumbar Spine CT 10/30/17 21:43 CONCLUSION: 1. No acute fracture. 2. 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 3. At L5-S1 there is a small central disc protrusion. Mild bilateral foraminal encroachment. Thoracic Spine CT 10/30/17 21:43 CONCLUSION: 1. Negative for acute traumatic injury to the thoracic spine. Small Schmorl's nodes in the lower thoracic spine. Foot MRI 10/31/17 00:00 CONCLUSION: 1. Lumbar Spine MRI 10/31/17 00:00 CONCLUSION: Extruded disc fragment with a donor site at L4-L5 lying posterior to the L4 vertebral body severe right-sided and moderate left-sided foraminal narrowing. There is no evidence of abscess. Sacrum/Coccyx MRI 10/31/17 00:00 CONCLUSION: 1. Negative MRI of the sacrum Chest X-Ray 11/06/17 06:00 CONCLUSION: Left lower lobe airspace disease and small left effusion suspected. Abdomen X-Ray 11/06/17 09:20 CONCLUSION: Nonobstructive bowel gas pattern. No pneumoperitoneum. Physical Exam: GENERAL: sedated intubated SKIN: Warm and dry. Jaundiced HEAD: Atraumatic. Normocephalic. EYES: Pupils equal and round. Prominent scleral icterus. No injection or drainage. ENT: No nasal bleeding or discharge. Mucous membranes pink and moist. NECK: Trachea midline. No JVD. CARDIOVASCULAR: Regular rate and rhythm. RESPIRATORY: No accessory muscle use. rhonchi to auscultation. Breath sounds equal bilaterally. GASTROINTESTINAL: Abdomen soft, tender, quite distended. Hepatic and splenic margins not palpable. : small amount of dark brown urine in anderson bag MUSCULOSKELETAL: Extremities without clubbing, cyanosis, or edema. No obvious deformities. NEUROLOGICAL:responsive, though lethargic. No obvious cranial nerve deficits. Motor grossly within normal limits. Five out of 5 muscle strength in the arms and legs. PSYCHIATRIC: unable to assess Assessment and Plan - Plan GAS sepsis ? source MSSA sepsis - PNA is most likely - 2 D echo neg for veg's - CXR looks worse Acute VDRF Acute ETOH withdrawl Lactic acidosis ARF, now on HD: from ATN ABd distention - KUB OK Liver failure with DIC and probable hepatorenal sd Hyperbilirubinemia: worse diarrhea - c.diff negative change Unasyn to cefazolin (that will cover both MSSA and GAS) fu repeat BC
--- NOTE | 2017-11-06 15:16 | P.PNNP ---
Subjective Interval history: Remains of ventilator on Precedex. Eyes open. Creatinine remains elevated at 8.09 with minimal urinary output. <Sharon Sultana - Last Filed: 11/06/17 15:12> Physical Exam Vital signs: Vital Signs 11/05/17 15:30 11/05/17 16:00 11/05/17 17:46 Temperature 98.6 F Pulse Rate 70 70 68 Respiratory Rate 20 20 Blood Pressure 132/73 134/73 Pulse Oximetry 93 L 92 L 11/05/17 20:00 11/05/17 21:30 11/05/17 22:00 Temperature 98.3 F Pulse Rate 62 61 Respiratory Rate 20 20 Blood Pressure 148/80 H Pulse Oximetry 92 L 91 L 11/05/17 23:30 11/06/17 00:00 11/06/17 00:30 Temperature 98.1 F Pulse Rate 63 63 63 Respiratory Rate 20 20 20 Blood Pressure 139/85 134/83 131/84 Pulse Oximetry 90 L 91 L 90 L 11/06/17 00:47 11/06/17 01:00 11/06/17 01:21 Temperature Pulse Rate 60 62 Respiratory Rate 20 20 20 Blood Pressure 121/69 Pulse Oximetry 90 L 91 L 91 L 11/06/17 01:30 11/06/17 02:00 11/06/17 02:30 Temperature Pulse Rate 62 62 62 Respiratory Rate 20 20 20 Blood Pressure 122/70 121/67 120/67 Pulse Oximetry 91 L 91 L 91 L 11/06/17 03:00 11/06/17 03:30 11/06/17 03:54 Temperature Pulse Rate 62 61 61 Respiratory Rate 20 20 20 Blood Pressure 120/67 120/67 Pulse Oximetry 91 L 91 L 11/06/17 04:00 11/06/17 04:30 11/06/17 04:39 Temperature 98.6 F Pulse Rate 61 60 Respiratory Rate 20 20 22 Blood Pressure 118/67 117/64 Pulse Oximetry 91 L 91 L 92 L 11/06/17 05:00 11/06/17 05:30 11/06/17 06:00 Temperature Pulse Rate 61 61 61 Respiratory Rate 21 21 22 Blood Pressure 116/68 115/68 110/68 Pulse Oximetry 92 L 92 L 91 L 11/06/17 06:30 11/06/17 07:00 11/06/17 07:30 Temperature Pulse Rate 61 60 60 Respiratory Rate 20 20 20 Blood Pressure 111/69 108/65 108/67 Pulse Oximetry 92 L 92 L 92 L 11/06/17 07:38 11/06/17 08:00 11/06/17 08:30 Temperature Pulse Rate 60 58 L Respiratory Rate 20 20 20 Blood Pressure 110/67 103/64 Pulse Oximetry 92 L 91 L 91 L 11/06/17 09:00 11/06/17 09:30 11/06/17 10:00 Temperature Pulse Rate 63 63 62 Respiratory Rate 24 20 20 Blood Pressure 109/67 105/66 Pulse Oximetry 93 L 92 L 93 L 11/06/17 10:01 11/06/17 10:30 11/06/17 11:00 Temperature Pulse Rate 59 L 59 L 62 Respiratory Rate 20 20 20 Blood Pressure 112/68 109/67 110/67 Pulse Oximetry 92 L 92 L 92 L 11/06/17 11:29 11/06/17 11:30 11/06/17 12:00 Temperature Pulse Rate 61 58 L Respiratory Rate 12 13 14 Blood Pressure 111/71 97/66 L Pulse Oximetry 92 L 92 L 93 L 11/06/17 12:31 Temperature Pulse Rate 60 Respiratory Rate 20 Blood Pressure 110/64 Pulse Oximetry 92 L Intake & Output 11/05/17 11/06/17 11/06/17 18:59 06:59 18:59 Intake Total 507 / 507 919 / 919 100 / 100 Output Total 5020 / 5020 0 / 0 Balance -4513 / -4513 919 / 919 100 / 100 Weight 133.5 kg Intake: IV 400 / 400 550 / 550 100 / 100 Precedex Inj 1,000 MCG In NS 250 / 250 Inj 240 ML @ 0.2 MCG/KG/HR 7 mls/hr IV.CONT TITRATE PRN Rx#: [id number] Diprivan 1000 mg/100 ml Inj 1, 200 / 200 200 / 200 100 / 100 000 mg In 100 ml @ 5 MCG/KG/MIN 3.81 mls/hr IV.CONT TITRATE PRN Rx#:[id number] Unasyn Inj 3 GM In NS Inj 100 200 / 200 100 / 100 ML @ 200 mls/hr IV.SIG Q12H AMADEO Rx#:[id number] Oral 0 / 0 Tube Feeding 119 / 119 Tube Irrigant 90 / 90 250 / 250 Output: Urine 0 / 0 Hemodialysis Amount 5000 / 5000 Urine Amount (Catheter) Indwelling Urethral Catheter Other: Date of Last Bowel Movement 11/03/17 11/05/17 11/05/17 # Bowel Movements 1 0 Narrative: GENERAL: Intubated and sedated SKIN: Warm and dry. Left IJ vas cath HEAD: Normocephalic. EYES: No scleral icterus. No injection or drainage. NECK: Supple, trachea midline. No JVD or lymphadenopathy. CARDIOVASCULAR: Regular rate and rhythm without murmurs, gallops, or rubs. RESPIRATORY: Breath sounds decreased bilaterally. No accessory muscle use. Intubated GASTROINTESTINAL: Abdomen soft, non-tender, large. OG tube GENITOURINARY: Indwelling Anderson catheter, small amount of dark colored urine MUSCULOSKELETAL: No cyanosis, Mild generalized edema. - Urinary Catheter Management Indwelling Urethral Catheter Cath placed during this visit: yes Reason for continuing: Hourly intake/output Insertion date: 10/31/17 Insertion time: 10:30 <Sharon Sultana - Last Filed: 11/06/17 15:12> Vital signs: Vital Signs 11/06/17 21:30 11/06/17 22:00 11/06/17 22:30 Temperature Pulse Rate 63 63 63 Respiratory Rate 20 20 20 Blood Pressure 93/54 L 93/53 L 95/55 L Pulse Oximetry 91 L 92 L 92 L 11/06/17 23:00 11/06/17 23:30 11/06/17 23:44 Temperature Pulse Rate 63 63 Respiratory Rate 20 20 20 Blood Pressure 96/57 L 99/58 L Pulse Oximetry 92 L 92 L 95 11/07/17 00:00 11/07/17 00:30 11/07/17 01:00 Temperature 98.5 F Pulse Rate 64 63 62 Respiratory Rate 20 20 14 Blood Pressure 107/66 108/67 Pulse Oximetry 93 L 93 L 89 L 11/07/17 01:14 11/07/17 01:30 11/07/17 02:00 Temperature Pulse Rate 61 62 63 Respiratory Rate 20 20 19 Blood Pressure 98/57 L 98/56 L 95/61 L Pulse Oximetry 93 L 93 L 91 L 11/07/17 02:30 11/07/17 03:00 11/07/17 03:30 Temperature Pulse Rate 61 60 59 L Respiratory Rate 20 20 20 Blood Pressure 114/62 105/57 L 96/57 L Pulse Oximetry 94 L 94 L 94 L 11/07/17 04:00 11/07/17 04:01 11/07/17 04:21 Temperature 99.7 F H Pulse Rate 61 64 Respiratory Rate 40 H 25 H 20 Blood Pressure 96/54 L Pulse Oximetry 94 L 91 L 95 11/07/17 04:30 11/07/17 05:00 11/07/17 05:30 Temperature Pulse Rate 60 59 L 54 L Respiratory Rate 26 H 20 20 Blood Pressure 105/60 105/56 L 99/57 L Pulse Oximetry 94 L 94 L 97 11/07/17 06:00 11/07/17 06:30 11/07/17 07:00 Temperature Pulse Rate 59 L 58 L 58 L Respiratory Rate 20 20 20 Blood Pressure 102/59 L 102/59 L 104/59 L Pulse Oximetry 94 L 94 L 94 L 11/07/17 07:30 11/07/17 07:46 11/07/17 08:00 Temperature Pulse Rate 57 L 56 L 56 L Respiratory Rate 20 20 20 Blood Pressure 104/59 L 96/52 L Pulse Oximetry 94 L 94 L 94 L 11/07/17 08:15 11/07/17 08:30 11/07/17 08:45 Temperature Pulse Rate 56 L 57 L 58 L Respiratory Rate 20 20 21 Blood Pressure 92/51 L 102/57 L 104/57 L Pulse Oximetry 94 L 95 95 11/07/17 09:00 11/07/17 09:15 11/07/17 09:30 Temperature Pulse Rate 57 L 53 L 53 L Respiratory Rate 20 20 20 Blood Pressure 106/55 L 104/52 L 99/55 L Pulse Oximetry 94 L 93 L 93 L 11/07/17 09:45 11/07/17 10:00 11/07/17 10:15 Temperature Pulse Rate 53 L 52 L 52 L Respiratory Rate 20 20 20 Blood Pressure 100/51 L 100/53 L 101/52 L Pulse Oximetry 93 L 92 L 92 L 11/07/17 10:30 11/07/17 10:45 11/07/17 11:00 Temperature Pulse Rate 52 L 52 L 54 L Respiratory Rate 20 21 27 H Blood Pressure 99/52 L 104/56 L 103/55 L Pulse Oximetry 92 L 93 L 92 L 11/07/17 11:15 11/07/17 11:30 11/07/17 11:39 Temperature Pulse Rate 54 L 55 L 55 L Respiratory Rate 29 H 28 H 20 Blood Pressure 108/58 L 111/59 L Pulse Oximetry 94 L 94 L 94 L 11/07/17 12:00 11/07/17 12:30 11/07/17 13:00 Temperature Pulse Rate 58 L 61 63 Respiratory Rate 20 28 H 23 Blood Pressure 106/56 L 103/62 108/59 L Pulse Oximetry 94 L 94 L 92 L 11/07/17 13:30 11/07/17 14:00 11/07/17 14:30 Temperature Pulse Rate 62 64 62 Respiratory Rate 23 21 24 Blood Pressure 134/63 131/65 118/74 Pulse Oximetry 93 L 93 L 93 L 11/07/17 15:00 11/07/17 15:30 11/07/17 16:00 Temperature Pulse Rate 64 62 62 Respiratory Rate 21 20 20 Blood Pressure 130/75 116/69 115/68 Pulse Oximetry 92 L 94 L 94 L 11/07/17 16:20 11/07/17 16:21 11/07/17 16:30 Temperature Pulse Rate 61 61 Respiratory Rate 20 20 20 Blood Pressure 114/67 Pulse Oximetry 93 L 93 L 11/07/17 17:00 11/07/17 18:00 11/07/17 20:00 Temperature 98.3 F Pulse Rate 61 64 61 Respiratory Rate 20 20 Blood Pressure 112/64 114/60 Pulse Oximetry 93 L 93 L 11/07/17 20:16 Temperature Pulse Rate 67 Respiratory Rate 20 Blood Pressure Pulse Oximetry 95 Intake & Output 11/07/17 11/07/17 11/08/17 06:59 18:59 06:59 Intake Total 850 / 850 900 / 900 100 / 100 Output Total 0 / 0 2540 / 2540 Balance 850 / 850 -1640 / -1640 100 / 100 Weight 134 kg Intake: IV 650 / 650 900 / 900 100 / 100 Precedex Inj 1,000 MCG In NS 250 / 250 500 / 500 Inj 240 ML @ 0.2 MCG/KG/HR 7 mls/hr IV.CONT TITRATE PRN Rx#: [id number] Diprivan 1000 mg/100 ml Inj 1, 200 / 200 200 / 200 100 / 100 000 mg In 100 ml @ 5 MCG/KG/MIN 3.81 mls/hr IV.CONT TITRATE PRN Rx#:[id number] Flexbumin 25% Inj 100 ML @ 60 200 / 200 mls/hr IV.SIG WITH DIALYSIS PRN Rx#:[id number] Unasyn Inj 3 GM In NS Inj 100 100 / 100 ML @ 200 mls/hr IV.SIG Q12H AMADEO Rx#:[id number] Ancef Inj 1,000 MG In NS Inj 100 / 100 100 ML @ 200 mls/hr IV.SIG Q24H AMADEO Rx#:[id number] Oral 0 / 0 Tube Irrigant 200 / 200 Output: Urine 0 / 0 0 / 0 Stool 40 / 40 Hemodialysis Amount 2500 / 2500 Other: Date of Last Bowel Movement 11/05/17 11/05/17 # Bowel Movements 0 - Urinary Catheter Management Indwelling Urethral Catheter Cath placed during this visit: no <Crystal Valadez - Last Filed: 11/07/17 21:24> Assessment and Plan - Assessment (1) Acute kidney injury Code(s): N17.9 - Acute kidney failure, unspecified Status: Acute Plan: Acute kidney injury with a creatinine initially at 1.33 and at day of consult 2.89 NANETTE most likely ATN from hypotension possible vancomycin toxicity with vancomycin level of 30.9. No baseline creatinine available. CT of abdomen with unremarkable kidneys. Urine negative for proteinuria Creatinine 8.09 UOP minimal at 20ml /24 hours Monitor strict I+O, continue indwelling anderson catheter Avoid nephrotoxins including aminoglycosides and IV contrast Continue to monitor urinary output and BMP Hemodialysis yesterday with removal of 5 liters Hemodialysis for tomorrow will remove fluid as tolerated Labs in AM <Sharon Sultana - Last Filed: 11/06/17 15:12> - Assessment (1) Acute kidney injury Code(s): N17.9 - Acute kidney failure, unspecified Status: Acute - Attending Attestation Patient seen and examined, agree with above. Urine out put is low. HD done yesterday, BUN and Creatinine remain elevated. HD again in AM. <Crystal Valadez - Last Filed: 11/07/17 21:24>
[2017-11-07] MEDS: Dexmedetomidine Inj 1,000 MCG in Sodium Chlor 0.9% Inj 240 ML IV.CONT PRN ×3 (01:28→16:30)
[2017-11-07] MEDS: Propofol 1000 mg/100 ml Inj 1,000 MG/100 ML BOTTLE IV.CONT PRN ×6 (02:27→22:01)
[2017-11-07] MEDS: Oral Hygiene Kit OROPHARYNG SCH ×3 (04:17→17:18)
[2017-11-07 04:55] LABS: Baso % (Auto) 0.2 % (0.0-2.0); Eos # (Auto) 0.1 th/mm3 (0.0-0.4); Eos % (Auto) 0.5 % (0.0-4.0); Hematocrit 36.2 % (39.0-51.0); Hemoglobin 12.4 gm/dL (13.0-17.0); Lymph % (Auto) 7.1 % (9.0-44.0); Mean Corpuscular HGB Conc 34.3 % (32.0-36.0); Mean Corpuscular Hemoglobin 34.4 pg (27.0-34.0); Mean Corpuscular Volume 100.3 fL (80.0-100.0); Mean Platelet Volume 10.2 fL (7.0-11.0); Mono % (Auto) 6.7 % (0.0-8.0); Neut # (Auto) 12.7 th/mm3 (1.8-7.7); Neut % (Auto) 85.5 % (16.0-70.0); Platelet Count 80 th/mm3 (150-450); Red Blood Count 3.61 mil/mm3 (4.50-5.90); Red Cell Distribution Width 14.9 % (11.6-17.2); White Blood Count 14.8 th/mm3 (4.0-11.0)
[2017-11-07 05:23] LABS: Albumin 1.7 g/dL (3.4-5.0); Calcium 7.7 mg/dL (8.5-10.1); Carbon Dioxide 22.3 meq/L (21.0-32.0); Phosphorus 7.8 mg/dL (2.5-4.9); Potassium 5.3 meq/L (3.5-5.1)
[2017-11-07 05:30] LABS: Alanine Aminotransferase 83 U/L (12-78); Albumin 1.7 g/dL (3.4-5.0); Alkaline Phosphatase 162 U/L (45-117); Anion Gap 17 meq/L (5-15); Aspartate Aminotransferase 154 U/L (15-37); Blood Urea Nitrogen 108 mg/dL (7-18); Calcium 7.7 mg/dL (8.5-10.1); Carbon Dioxide 22.1 meq/L (21.0-32.0); Chloride 101 meq/L (98-107); Glomerular Filtration Rate 6 mL/min (>89); Glucose,Random 151 mg/dL (74-106); Potassium 5.2 meq/L (3.5-5.1); Sodium 140 meq/L (136-145); Total Protein 7.1 g/dL (6.4-8.2)
[2017-11-07] MEDS: Insulin NovoLOG Aspart Correctional Sugar Inj SQ SCH ×4 (05:46→23:41)
[2017-11-07 06:10] LABS: Lymphocytes 4 % (9-44); Metamyelocytes 4 % (0-1); Monocytes 6 % (0-8); Myelocytes 2 % (0-0); Promyelocyte 2 % (0-0)
[2017-11-07 06:12] LABS: Toxic Granulation 1+; Toxic Vacuolation Present
[2017-11-07] MEDS ORDERED: Dextrose 50% in Water 50 ML Vial IV.PUSH ONE (06:59)
[2017-11-07] MEDS ORDERED: Calcium Chloride Inj 1 GM in Sodium Chlor 0.9% Inj 100 ML IV.SIG ONE (06:59)
[2017-11-07] MEDS: Albumin Human 25% Inj 100 ML IV.SIG PRN ×3 (08:41→08:49)
[2017-11-07] MEDS: Heparin 10,000 UNITS/10 ML Vial (for IV use) OTHER PRN (08:41)
[2017-11-07] MEDS: rifAXIMin 550 MG Tablet PO SCH ×2 (09:00→20:01)
[2017-11-07] MEDS: Senna/Docusate Sodium 8.6/50 MG Tablet PO SCH ×2 (09:00→20:01)
--- NOTE | 2017-11-07 09:41 | P.PNNP ---
Subjective Interval history: Remains intubated and sedated on Diprivan and Precedex. Seen during hemodialysis tolerating well. <Sharon Sultana - Last Filed: 11/07/17 13:51> Physical Exam Vital signs: Vital Signs 11/06/17 10:00 11/06/17 10:01 11/06/17 10:30 Temperature Pulse Rate 62 59 L 59 L Respiratory Rate 20 20 20 Blood Pressure 112/68 109/67 Pulse Oximetry 93 L 92 L 92 L 11/06/17 11:00 11/06/17 11:29 11/06/17 11:30 Temperature Pulse Rate 62 61 Respiratory Rate 20 12 13 Blood Pressure 110/67 111/71 Pulse Oximetry 92 L 92 L 92 L 11/06/17 12:00 11/06/17 12:31 11/06/17 13:00 Temperature Pulse Rate 58 L 60 64 Respiratory Rate 14 20 12 Blood Pressure 97/66 L 110/64 117/73 Pulse Oximetry 93 L 92 L 95 11/06/17 13:30 11/06/17 14:00 11/06/17 14:32 Temperature Pulse Rate 64 65 71 Respiratory Rate 13 18 26 H Blood Pressure 120/74 109/68 151/67 H Pulse Oximetry 95 94 L 11/06/17 15:00 11/06/17 15:30 11/06/17 16:00 Temperature Pulse Rate 85 77 71 Respiratory Rate 28 H 16 16 Blood Pressure 151/86 H 139/80 121/78 Pulse Oximetry 94 L 11/06/17 16:12 11/06/17 16:30 11/06/17 17:00 Temperature Pulse Rate 71 68 Respiratory Rate 20 24 22 Blood Pressure 132/74 122/74 Pulse Oximetry 99 96 94 L 11/06/17 17:30 11/06/17 18:00 11/06/17 18:30 Temperature Pulse Rate 64 64 66 Respiratory Rate 20 20 20 Blood Pressure 111/66 111/68 106/63 Pulse Oximetry 93 L 93 L 93 L 11/06/17 19:00 11/06/17 19:30 11/06/17 20:00 Temperature Pulse Rate 66 64 65 Respiratory Rate 20 20 21 Blood Pressure 102/61 100/59 L 97/56 L Pulse Oximetry 94 L 93 L 93 L 11/06/17 20:30 11/06/17 21:00 11/06/17 21:30 Temperature 98.2 F Pulse Rate 65 64 63 Respiratory Rate 20 20 20 Blood Pressure 98/56 L 97/54 L 93/54 L Pulse Oximetry 92 L 92 L 91 L 11/06/17 22:00 11/06/17 22:30 11/06/17 23:00 Temperature Pulse Rate 63 63 63 Respiratory Rate 20 20 20 Blood Pressure 93/53 L 95/55 L 96/57 L Pulse Oximetry 92 L 92 L 92 L 11/06/17 23:30 11/06/17 23:44 11/07/17 00:00 Temperature 98.5 F Pulse Rate 63 64 Respiratory Rate 20 20 20 Blood Pressure 99/58 L 107/66 Pulse Oximetry 92 L 95 93 L 11/07/17 00:30 11/07/17 01:00 11/07/17 01:14 Temperature Pulse Rate 63 62 61 Respiratory Rate 20 14 20 Blood Pressure 108/67 98/57 L Pulse Oximetry 93 L 89 L 93 L 11/07/17 01:30 11/07/17 02:00 11/07/17 02:30 Temperature Pulse Rate 62 63 61 Respiratory Rate 20 19 20 Blood Pressure 98/56 L 95/61 L 114/62 Pulse Oximetry 93 L 91 L 94 L 11/07/17 03:00 11/07/17 03:30 11/07/17 04:00 Temperature 99.7 F H Pulse Rate 60 59 L 61 Respiratory Rate 20 20 40 H Blood Pressure 105/57 L 96/57 L Pulse Oximetry 94 L 94 L 94 L 11/07/17 04:01 11/07/17 04:21 11/07/17 06:00 Temperature Pulse Rate 64 59 L Respiratory Rate 25 H 20 Blood Pressure 96/54 L 102/59 L Pulse Oximetry 91 L 95 11/07/17 07:46 Temperature Pulse Rate 56 L Respiratory Rate 20 Blood Pressure Pulse Oximetry 94 L Intake & Output 11/06/17 11/07/17 11/07/17 18:59 06:59 18:59 Intake Total 700 / 700 850 / 850 200 / 200 Output Total 50 / 50 0 / 0 Balance 650 / 650 850 / 850 200 / 200 Weight 134 kg Intake: IV 700 / 700 650 / 650 200 / 200 Precedex Inj 1,000 MCG In NS 500 / 500 250 / 250 Inj 240 ML @ 0.2 MCG/KG/HR 7 mls/hr IV.CONT TITRATE PRN Rx#: [id number] Diprivan 1000 mg/100 ml Inj 1, 200 / 200 200 / 200 000 mg In 100 ml @ 5 MCG/KG/MIN 3.81 mls/hr IV.CONT TITRATE PRN Rx#:[id number] Flexbumin 25% Inj 100 ML @ 60 200 / 200 mls/hr IV.SIG WITH DIALYSIS PRN Rx#:[id number] Unasyn Inj 3 GM In NS Inj 100 100 / 100 ML @ 200 mls/hr IV.SIG Q12H [facility] Rx#:[id number] Ancef Inj 1,000 MG In NS Inj 100 / 100 100 ML @ 200 mls/hr IV.SIG Q24H [facility] Rx#:[id number] Oral 0 / 0 Tube Irrigant 200 / 200 Output: Urine 0 / 0 Urine Amount (Catheter) 50 / 50 Indwelling Urethral Catheter 50 / 50 Other: Date of Last Bowel Movement 11/05/17 11/05/17 # Bowel Movements 0 Narrative: GENERAL: Intubated and sedated SKIN: Warm and dry. Left IJ vas cath. Triple lumen in right IJ HEAD: Normocephalic. EYES: No scleral icterus. No injection or drainage. NECK: Supple, trachea midline. No JVD or lymphadenopathy. CARDIOVASCULAR: Regular rate and rhythm without murmurs, gallops, or rubs. RESPIRATORY: Breath sounds decreased bilaterally. No accessory muscle use. Intubated GASTROINTESTINAL: Abdomen soft, non-tender, large. OG tube MUSCULOSKELETAL: No cyanosis, generalized edema. - Urinary Catheter Management Indwelling Urethral Catheter Cath placed during this visit: yes Reason for continuing: Hourly intake/output Insertion date: 10/31/17 Insertion time: 10:30 <Sharon Sultana - Last Filed: 11/07/17 13:51> Vital signs: Vital Signs 11/06/17 21:30 11/06/17 22:00 11/06/17 22:30 Temperature Pulse Rate 63 63 63 Respiratory Rate 20 20 20 Blood Pressure 93/54 L 93/53 L 95/55 L Pulse Oximetry 91 L 92 L 92 L 11/06/17 23:00 11/06/17 23:30 11/06/17 23:44 Temperature Pulse Rate 63 63 Respiratory Rate 20 20 20 Blood Pressure 96/57 L 99/58 L Pulse Oximetry 92 L 92 L 95 11/07/17 00:00 11/07/17 00:30 11/07/17 01:00 Temperature 98.5 F Pulse Rate 64 63 62 Respiratory Rate 20 20 14 Blood Pressure 107/66 108/67 Pulse Oximetry 93 L 93 L 89 L 11/07/17 01:14 11/07/17 01:30 11/07/17 02:00 Temperature Pulse Rate 61 62 63 Respiratory Rate 20 20 19 Blood Pressure 98/57 L 98/56 L 95/61 L Pulse Oximetry 93 L 93 L 91 L 11/07/17 02:30 11/07/17 03:00 11/07/17 03:30 Temperature Pulse Rate 61 60 59 L Respiratory Rate 20 20 20 Blood Pressure 114/62 105/57 L 96/57 L Pulse Oximetry 94 L 94 L 94 L 11/07/17 04:00 11/07/17 04:01 11/07/17 04:21 Temperature 99.7 F H Pulse Rate 61 64 Respiratory Rate 40 H 25 H 20 Blood Pressure 96/54 L Pulse Oximetry 94 L 91 L 95 11/07/17 04:30 11/07/17 05:00 11/07/17 05:30 Temperature Pulse Rate 60 59 L 54 L Respiratory Rate 26 H 20 20 Blood Pressure 105/60 105/56 L 99/57 L Pulse Oximetry 94 L 94 L 97 11/07/17 06:00 11/07/17 06:30 11/07/17 07:00 Temperature Pulse Rate 59 L 58 L 58 L Respiratory Rate 20 20 20 Blood Pressure 102/59 L 102/59 L 104/59 L Pulse Oximetry 94 L 94 L 94 L 11/07/17 07:30 11/07/17 07:46 11/07/17 08:00 Temperature Pulse Rate 57 L 56 L 56 L Respiratory Rate 20 20 20 Blood Pressure 104/59 L 96/52 L Pulse Oximetry 94 L 94 L 94 L 11/07/17 08:15 11/07/17 08:30 11/07/17 08:45 Temperature Pulse Rate 56 L 57 L 58 L Respiratory Rate 20 20 21 Blood Pressure 92/51 L 102/57 L 104/57 L Pulse Oximetry 94 L 95 95 11/07/17 09:00 11/07/17 09:15 11/07/17 09:30 Temperature Pulse Rate 57 L 53 L 53 L Respiratory Rate 20 20 20 Blood Pressure 106/55 L 104/52 L 99/55 L Pulse Oximetry 94 L 93 L 93 L 11/07/17 09:45 11/07/17 10:00 11/07/17 10:15 Temperature Pulse Rate 53 L 52 L 52 L Respiratory Rate 20 20 20 Blood Pressure 100/51 L 100/53 L 101/52 L Pulse Oximetry 93 L 92 L 92 L 11/07/17 10:30 11/07/17 10:45 11/07/17 11:00 Temperature Pulse Rate 52 L 52 L 54 L Respiratory Rate 20 21 27 H Blood Pressure 99/52 L 104/56 L 103/55 L Pulse Oximetry 92 L 93 L 92 L 11/07/17 11:15 11/07/17 11:30 11/07/17 11:39 Temperature Pulse Rate 54 L 55 L 55 L Respiratory Rate 29 H 28 H 20 Blood Pressure 108/58 L 111/59 L Pulse Oximetry 94 L 94 L 94 L 11/07/17 12:00 11/07/17 12:30 11/07/17 13:00 Temperature Pulse Rate 58 L 61 63 Respiratory Rate 20 28 H 23 Blood Pressure 106/56 L 103/62 108/59 L Pulse Oximetry 94 L 94 L 92 L 11/07/17 13:30 11/07/17 14:00 11/07/17 14:30 Temperature Pulse Rate 62 64 62 Respiratory Rate 23 21 24 Blood Pressure 134/63 131/65 118/74 Pulse Oximetry 93 L 93 L 93 L 11/07/17 15:00 11/07/17 15:30 11/07/17 16:00 Temperature Pulse Rate 64 62 62 Respiratory Rate 21 20 20 Blood Pressure 130/75 116/69 115/68 Pulse Oximetry 92 L 94 L 94 L 11/07/17 16:20 11/07/17 16:21 11/07/17 16:30 Temperature Pulse Rate 61 61 Respiratory Rate 20 20 20 Blood Pressure 114/67 Pulse Oximetry 93 L 93 L 11/07/17 17:00 11/07/17 18:00 11/07/17 20:00 Temperature 98.3 F Pulse Rate 61 64 61 Respiratory Rate 20 20 Blood Pressure 112/64 114/60 Pulse Oximetry 93 L 93 L 11/07/17 20:16 Temperature Pulse Rate 67 Respiratory Rate 20 Blood Pressure Pulse Oximetry 95 Intake & Output 11/07/17 11/07/17 11/08/17 06:59 18:59 06:59 Intake Total 850 / 850 900 / 900 100 / 100 Output Total 0 / 0 2540 / 2540 Balance 850 / 850 -1640 / -1640 100 / 100 Weight 134 kg Intake: IV 650 / 650 900 / 900 100 / 100 Precedex Inj 1,000 MCG In NS 250 / 250 500 / 500 Inj 240 ML @ 0.2 MCG/KG/HR 7 mls/hr IV.CONT TITRATE PRN Rx#: [id number] Diprivan 1000 mg/100 ml Inj 1, 200 / 200 200 / 200 100 / 100 000 mg In 100 ml @ 5 MCG/KG/MIN 3.81 mls/hr IV.CONT TITRATE PRN Rx#:[id number] Flexbumin 25% Inj 100 ML @ 60 200 / 200 mls/hr IV.SIG WITH DIALYSIS PRN Rx#:[id number] Unasyn Inj 3 GM In NS Inj 100 100 / 100 ML @ 200 mls/hr IV.SIG Q12H [facility] Rx#:[id number] Ancef Inj 1,000 MG In NS Inj 100 / 100 100 ML @ 200 mls/hr IV.SIG Q24H [facility] Rx#:[id number] Oral 0 / 0 Tube Irrigant 200 / 200 Output: Urine 0 / 0 0 / 0 Stool 40 / 40 Hemodialysis Amount 2500 / 2500 Other: Date of Last Bowel Movement 11/05/17 11/05/17 # Bowel Movements 0 - Urinary Catheter Management Indwelling Urethral Catheter Cath placed during this visit: no <Crystal Valadez - Last Filed: 11/07/17 21:25> Assessment and Plan - Assessment (1) Acute kidney injury Code(s): N17.9 - Acute kidney failure, unspecified Status: Acute Plan: Acute kidney injury with a creatinine initially at 1.33 and at day of consult 2.89 NANETTE most likely ATN from hypotension possible vancomycin toxicity with vancomycin level of 30.9. No baseline creatinine available. CT of abdomen with unremarkable kidneys. Urine negative for proteinuria Creatinine 9.79 Anuric Hyperphosphatemia 7.8 will add PhosLo Monitor strict I+O Avoid nephrotoxins including aminoglycosides and IV contrast Continue to monitor urinary output and BMP Hemodialysis today with removal of 2.5 liters of fluid tolerated well. <Sharon Sultana - Last Filed: 11/07/17 13:51> - Assessment (1) Acute kidney injury Code(s): N17.9 - Acute kidney failure, unspecified Status: Acute - Attending Attestation Patient seen and examined, agree with above. HD done today, BP dropped and UF decreased. Continue HD as needed. <Crystal Valadez - Last Filed: 11/07/17 21:25>
[2017-11-07] MEDS ORDERED: Methylnaltrexone Inj 12 MG/0.6 ML Vial SQ ONE (09:49)
[2017-11-07] MEDS ORDERED: Mineral Oil 55% Emulsion 480 ML PO ONE (09:49)
[2017-11-07] MEDS ORDERED: Glycerin Adult 2 GM Supp RECTAL ONE (09:50)
[2017-11-07] MEDS: Chlorhexidine 0.12% Oral Kit 15 ML UDC OROPHARYNG SCH ×2 (10:22→20:02)
[2017-11-07] MEDS: Hypromellose 0.3% Opth Gel 10 GM Bottle EACH EYE SCH ×2 (10:23→20:02)
[2017-11-07] MEDS: Mupirocin 2% Nasal Oint Topical Syringe EACH NARE SCH ×2 (10:23→20:01)
--- NOTE | 2017-11-07 10:50 | P.PNCC ---
Subjective Subjective Remarks/Hospital Course: 52-year-old male with a past medical history of alcohol dependence who sought medical attention after a friend found him in the hotel room with fever and ill appearance after episode of binge drinking. Patient has multiple bruises and states he has been falling often which he attributes to poor footwear. His primary complaint is pain and tenderness of his sacrum and L4/L5 region. Denies IVDU. Denies CP, SOB, Cough, sputum production, urinary symptoms , abdominal pain, nausea, vomiting, headache, neck pain, neck stiffness. He does report some diarrhea, nonbloody, non melena and difficult to quantify. He says he has "always drank EtOH heavily, but it has been drinking more than usual over the last 2 weeks". He is tremulous, hypertensive, tachycardic with clinical appearance of EtOH withdrawal. ED workup included CT brain which is negative, CT chest with RLL consolidation, CT abd/pelvis with wall thickening c/ w colitis of ascending/transverse colon. WBC 23.5, lactic acid 11.4. In the ED he has received vancomycin, piperacillin/tazobactam, NS 2 L bolus, magnesium sulfate 1 gram IV, Ativan 2 mg IV, Thiamine 100 mg IV, Ofirmev 1 gram IV. 10/31: Remains on norepinephrine drip at 8 mcg/min. Weaning FiO2 and ventilator. Minimal response on the ventilator on propofol and dexmedetomidine drips. MRI of the lumbar spine, sacrum and foot will be performed this afternoon. Noted gram-positive cocci bacteremia. 2D echocardiogram ordered repeat blood cultures today. Currently on vancomycin and piperacillin/ tazobactam. 11/01 Patient is sedated with Diprivan and Fentanyl drips. On Levophed 9 mics. Renal function worse this morning with Cr: 2.89 from 1.95. Afebrile. 11/02 Patient remains intubated and sedated. Renal function continue to decline with Cr: 4.22 from 2.89 with poor UOP. Afebrile. Levophed down 1 jaison. 11/03 Patient remains intubated and sedated on Fentanyl infusion. Afebrile. HD initiated yesterday with removal 2L. Off Levophed. 11/04: Remains intubated sedated encephalopathy. Hemodialysis yesterday and apparently only 1 L was removed creatinine now increased to 5.98. Platelet count 56. Continues to remain oliguric to anuric. 11/05: Remains intubated now sedated with propofol. Tolerating CPAP but not following commands. Lab work is pending today. Precedex will be started to facilitate vent weaning. Continues to have high residuals start Reglan IV. CXR yesterday showed pulmonary edema, will request HD with fluid removal today 11/06 Patient remains intubated and sedated with Precedex and Diprivan infusion. Afebrile. On trickle feeds due to high residuals. s/p HD yesterday with 6L fluid removal. SUBJECTIVE: 11/07: No bowel movement times several days. T-max 99.7. Remains on dexmedetomidine at 1 mcg/kg/h and propofol drip at 30 mcg/kg/min. Hemodialysis today. Objective Vital Signs / I&O: Vital Signs 11/06/17 11:00 11/06/17 11:29 11/06/17 11:30 Temperature Pulse Rate 62 61 Respiratory Rate 20 12 13 Blood Pressure 110/67 111/71 Pulse Oximetry 92 L 92 L 92 L 11/06/17 12:00 11/06/17 12:31 11/06/17 13:00 Temperature Pulse Rate 58 L 60 64 Respiratory Rate 14 20 12 Blood Pressure 97/66 L 110/64 117/73 Pulse Oximetry 93 L 92 L 95 11/06/17 13:30 11/06/17 14:00 11/06/17 14:32 Temperature Pulse Rate 64 65 71 Respiratory Rate 13 18 26 H Blood Pressure 120/74 109/68 151/67 H Pulse Oximetry 95 94 L 11/06/17 15:00 11/06/17 15:30 11/06/17 16:00 Temperature Pulse Rate 85 77 71 Respiratory Rate 28 H 16 16 Blood Pressure 151/86 H 139/80 121/78 Pulse Oximetry 94 L 11/06/17 16:12 11/06/17 16:30 11/06/17 17:00 Temperature Pulse Rate 71 68 Respiratory Rate 20 24 22 Blood Pressure 132/74 122/74 Pulse Oximetry 99 96 94 L 11/06/17 17:30 11/06/17 18:00 11/06/17 18:30 Temperature Pulse Rate 64 64 66 Respiratory Rate 20 20 20 Blood Pressure 111/66 111/68 106/63 Pulse Oximetry 93 L 93 L 93 L 11/06/17 19:00 08/06/18 19:30 11/06/17 20:00 Temperature Pulse Rate 66 64 65 Respiratory Rate 20 20 21 Blood Pressure 102/61 100/59 L 97/56 L Pulse Oximetry 94 L 93 L 93 L 11/06/17 20:30 11/06/17 21:00 11/06/17 21:30 Temperature 98.2 F Pulse Rate 65 64 63 Respiratory Rate 20 20 20 Blood Pressure 98/56 L 97/54 L 93/54 L Pulse Oximetry 92 L 92 L 91 L 11/06/17 22:00 11/06/17 22:30 11/06/17 23:00 Temperature Pulse Rate 63 63 63 Respiratory Rate 20 20 20 Blood Pressure 93/53 L 95/55 L 96/57 L Pulse Oximetry 92 L 92 L 92 L 11/06/17 23:30 11/06/17 23:44 11/07/17 00:00 Temperature 98.5 F Pulse Rate 63 64 Respiratory Rate 20 20 20 Blood Pressure 99/58 L 107/66 Pulse Oximetry 92 L 95 93 L 11/07/17 00:30 11/07/17 01:00 11/07/17 01:14 Temperature Pulse Rate 63 62 61 Respiratory Rate 20 14 20 Blood Pressure 108/67 98/57 L Pulse Oximetry 93 L 89 L 93 L 11/07/17 01:30 11/07/17 02:00 11/07/17 02:30 Temperature Pulse Rate 62 63 61 Respiratory Rate 20 19 20 Blood Pressure 98/56 L 95/61 L 114/62 Pulse Oximetry 93 L 91 L 94 L 11/07/17 03:00 11/07/17 03:30 11/07/17 04:00 Temperature 99.7 F H Pulse Rate 60 59 L 61 Respiratory Rate 20 20 40 H Blood Pressure 105/57 L 96/57 L Pulse Oximetry 94 L 94 L 94 L 11/07/17 04:01 11/07/17 04:21 11/07/17 06:00 Temperature Pulse Rate 64 59 L Respiratory Rate 25 H 20 Blood Pressure 96/54 L 102/59 L Pulse Oximetry 91 L 95 11/07/17 07:46 Temperature Pulse Rate 56 L Respiratory Rate 20 Blood Pressure Pulse Oximetry 94 L Intake & Output 11/06/17 11/07/17 11/07/17 18:59 06:59 18:59 Intake Total 700 / 700 850 / 850 550 / 550 Output Total 50 / 50 0 / 0 Balance 650 / 650 850 / 850 550 / 550 Weight 134 kg Intake: IV 700 / 700 650 / 650 550 / 550 Precedex Inj 1,000 MCG In NS 500 / 500 250 / 250 250 / 250 Inj 240 ML @ 0.2 MCG/KG/HR 7 mls/hr IV.CONT TITRATE PRN Rx#: [id number] Diprivan 1000 mg/100 ml Inj 1, 200 / 200 200 / 200 100 / 100 000 mg In 100 ml @ 5 MCG/KG/MIN 3.81 mls/hr IV.CONT TITRATE PRN Rx#:[id number] Flexbumin 25% Inj 100 ML @ 60 200 / 200 mls/hr IV.SIG WITH DIALYSIS PRN Rx#:[id number] Unasyn Inj 3 GM In NS Inj 100 100 / 100 ML @ 200 mls/hr IV.SIG Q12H AMADEO Rx#:[id number] Ancef Inj 1,000 MG In NS Inj 100 / 100 100 ML @ 200 mls/hr IV.SIG Q24H AMADEO Rx#:[id number] Oral 0 / 0 Tube Irrigant 200 / 200 Output: Urine 0 / 0 Urine Amount (Catheter) 50 / 50 Indwelling Urethral Catheter 50 / 50 Other: Date of Last Bowel Movement 11/05/17 11/05/17 # Bowel Movements 0 Result Diagrams: 11/07/17 03:25 11/07/17 03:25 Other Results: Microbiology 11/04/17 03:45 Sputum - Endotracheal Gram Stain - Final 11/04/17 03:45 Sputum - Endotracheal Sputum Culture - Final No growth in 48 hours 11/01/17 04:40 Blood - Peripheral Aerobic Blood Culture - Final No growth in 5 days 11/01/17 04:40 Blood - Peripheral Anaerobic Blood Culture - Final No growth in 5 days 11/01/17 06:39 Blood - Peripheral Aerobic Blood Culture - Final No growth in 5 days 11/01/17 06:39 Blood - Peripheral Anaerobic Blood Culture - Final QNS - See aerobic report. 11/03/17 05:30 Stool Enteric Pathogens (PCR) - Final 10/30/17 17:50 Blood - Peripheral Aerobic Blood Culture - Final Group A beta (Strep pyogenes) 10/30/17 17:50 Blood - Peripheral Anaerobic Blood Culture - Final Group A beta (Strep pyogenes) 10/30/17 17:50 Blood - Peripheral Aerobic Blood Culture - Final Group A beta (Strep pyogenes) Staphylococcus aureus 10/30/17 17:50 Blood - Peripheral Anaerobic Blood Culture - Final Group A beta (Strep pyogenes) 10/31/17 04:55 Sputum - Endotracheal Gram Stain - Final 10/31/17 04:55 Sputum - Endotracheal Sputum Culture - Final Group A beta (Strep pyogenes) 10/31/17 01:10 Urine - Catheterized Urine Streptococcus pneumoniae Antigen ( M - Final Presumptive negative for streptococcus pneumoniae antigen, suggesting no current or recent infection. Infection due to Streptococcus pneumoniae cannot be ruled out since the antigen present in the sample may be below the detection limit of the test. 10/31/17 01:10 Urine - Catheterized Urine Legionella Antigen - Final Presumptive negative for Legionella pneumophila serogroup 1 antigen in urine, suggesting no recent or recurrent infection. Infection due to Legionella cannot be ruled out since other serogroups and species may cause disease, antigen may not be present in urine in early infection, and the level of antigen present in the urine may be below the detection limit of the test. 10/31/17 02:30 Nasal Wash Influenza Types A,B Antigen - Final Negative for FLU A and B antigen Infection due to influenza A or B cannot be ruled out since the antigen present in the sample may be below the detection limit of the test. Imaging: ITS Impressions Abdomen/Pelvis CT 10/30/17 17:35 CONCLUSION: 1. Mild colitis predominantly on the right side with trace free fluid and some inflammatory changes on the right. No bowel obstruction. No free air. 2. Multiple layering gallstones. 3. Subsegmental basilar airspace consolidation in the lungs. Differential diagnosis includes mild pneumonia. 4. Fatty liver enlarged to [address] 10/30/17 17:35 CONCLUSION: 1. No acute intracranial abnormalities. . Chest CTA 10/30/17 19:02 CONCLUSION: 1. Suboptimal bolus but no evidence for central pulmonary emboli. 2. Patchy airspace consolidation right lung base most characteristic of pneumonia. No significant effusion. Foot X-Ray 10/30/17 21:27 CONCLUSION: No acute findings. Moderate degenerative change. Bone spurs posterior calcaneus. Lumbar Spine CT 10/30/17 21:43 CONCLUSION: 1. No acute fracture. 2. 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 3. At L5-S1 there is a small central disc protrusion. Mild bilateral foraminal encroachment. Thoracic Spine CT 10/30/17 21:43 CONCLUSION: 1. Negative for acute traumatic injury to the thoracic spine. Small Schmorl's nodes in the lower thoracic spine. Foot MRI 10/31/17 00:00 CONCLUSION: 1. Lumbar Spine MRI 10/31/17 00:00 CONCLUSION: Extruded disc fragment with a donor site at L4-L5 lying posterior to the L4 vertebral body severe right-sided and moderate left-sided foraminal narrowing. There is no evidence of abscess. Sacrum/Coccyx MRI 10/31/17 00:00 CONCLUSION: 1. Negative MRI of the sacrum Chest X-Ray 11/06/17 06:00 CONCLUSION: Left lower lobe airspace disease and small left effusion suspected. Abdomen X-Ray 11/06/17 09:20 CONCLUSION: Nonobstructive bowel gas pattern. No pneumoperitoneum. Objective Remarks: GENERAL: Patient is 52 yo intubated and sedated with propofol and dexmedetomidine drip SKIN: Warm and dry. HEAD: Normocephalic. EYES: Pupils are round 1 mm bilaterally and brisk. + scleral icterus. No injection or drainage. NECK: Supple, trachea midline. No JVD or lymphadenopathy. CARDIOVASCULAR: Tachycardic, RR. S1, S2 predose 4. Without murmur, gallops, or rubs. RESPIRATORY: Breath sounds appreciated anteriorly with few bibasilar crackles. GASTROINTESTINAL: Abdomen soft, non-tender, nondistended. Hypoactive bowel sounds appreciated. MUSCULOSKELETAL: No significant peripheral edema. Neuro: Intubated, sedated. Partially opens eyes moves extremities, did not follow commands Assessment and Plan - Assessment and Plan Plan: NEURO/PSYCH: Delirium tremens Acute toxic metabolic encephalopathy EtOH dependence CT brain 10/30- for acute intracranial abnormality On propofol at 30 m/kg/min for sedation and vent synchrony. Dexmedetomidine 1 g/kg/h to facilitate vent weaning Continue thiamine/folic acid/multivitamin 10/31 EEG: Encephalopathy, no epileptiform activity. Acetaminophen 650 mg p.o. every 8 hours as needed fever ETOH - 147 on admission RESP: Acute respiratory failure Aspiration pneumonia Intubated 10/31 for airway protection. PRVC 20 TV 550, IT:1.0, PEEP:5, FIO2: 50% Ventilator bundle, daily CPAP trials but mental status will not permit extubation Albuterol/ipratropium aerosols every 4 hours with albuterol aerosols every 2 hours as needed CV: Fluid overload/pulmonary edema Lactic acidemia- resolved Elevated troponin likely type II non-STEMI Off Levophed monitor HR and BP keep MAP>65mmHg Lactic acid cleared 1.0 Echo showed EF 65-70% Monitor trop (trending down). on stress dose stress steroids- HC 25ml IV q12 continue to wean stop date GI: Right/transverse mild colitis/acute Alcoholic hepatitis Hepatic steatosis Hepatosplenomegaly. Liver is 25 cm. Cholelithiasis Hyperammonia On Lactulose 30ml QID and rifaximin 550 twice daily for elevated ammonia, Continue tube feeds Nepro @10ml/hr with goal rate 40ml/hr CT abdomen and pelvis demonstrates thickening of right colon extending into transverse colon. There is hepatomegaly and steatosis. On metoclopramide 5 mg every 8 hours for prokinetic agent Docusate serum/senna twice daily, polythene glycol 17 g twice daily, lactulose 4 times daily, mineral oil 30 cc 1 and enema/manual disimpaction. Check KUB abdomen r/o ileus FEN/RENAL: Acute kidney failure No hydronephrosis on CT abdomen/pelvis. Monitor renal function, I/O's, avoid nephrotoxins Renal is following- Dr. Valadez. HD initiated 11/02 with removal 2L. 6L removed 11/05 ID: Group A beta Strep bacteremia 07/05 bilaterally Cellulitis toes bilaterally Leukocytosis...trending down He received piperacillin/tazobactam and vancomycin in the emergency department. Blood culture x 2 10/30 -gram-positive cocci/strep pyogenes - BC 11/01: NGTD Sputum 11/04: NGTD Sputum 10/31 -Strep Pyogenes C diff negative urine pneumococcal antigen, urine Legionella antigen, influenza a and B- all negative Infectious disease is following- Dr. Segovia Abx per ID (cefazolin) monitor for signs of infections ( Fever, WBC) MRI foot: No abscess, HEME: Acute coagulopathy DIC Leukocytosis Macrocytic anemia Thrombocytopenia Monitor coags/CBC/platelets. There is no significant active bleeding at this time, Monitor CBC. coags. s/p 2u FFP 11/02 for vascath placement ENDO: Acute hyperglycemia ? undiagnosed diabetes mellitus. Sliding-scale insulin with aspart insulin with Accu-Cheks every 6 hours to maintain euglycemia/medium regimen MSK: L5/S1 disc protrusion Pars defect L4/L5 Not a candidate for surgical intervention at this time per Dr. King consult PROPH: SCDs for DVT prophylaxis. Avoid pharmacologic DVT prophylaxis at this time due to coagulopathy, thrombocytopenia. Lansoprazole for stress ulcer prophylaxis ACCESS: Right IJ central venous line placed 10/31. Discontinue 11/07. Left radial arterial line placed 11/01. Left IJ vascath placed 11/02 CCT 30 mins
[2017-11-07] MEDS: Hydrocortisone Sod Succinate 100 MG Vial IV.PUSH SCH ×2 (12:00→22:34)
--- NOTE | 2017-11-07 14:17 | XR ---
EXAM DATE: 11/07/2017 1:59 PM EDT AGE/SEX: 52 years / Male INDICATIONS: Abdominal distention and constipation. CLINICAL DATA: This is the patient's subsequent encounter. Patient reports that signs and symptoms h ave been present for 1 week and indicates a pain score of Nonresponsive. MEDICAL/SURGICAL HISTORY: Non-responsive. Non-responsive. COMPARISON: [facility], ABDOMEN 1V KUB, 11/06/2017. . FINDINGS: NG tip in stomach. Bowel gas pattern nonspecific without evidence for obstruction or free air. Degen erative change in the spine. CONCLUSION: NG tip in stomach. No free air. Electronically signed by: Neeraj Hernandez MD 11/07/2017 2:16 PM EDT
[2017-11-07] MEDS: Calcium Acetate 667 MG Capsule PO SCH (18:23)
[2017-11-07] MEDS: Polyethylene Glycol 3350 17 GM Packet PO SCH (20:02)
[2017-11-08] MEDS: Oral Hygiene Kit OROPHARYNG SCH ×5 (00:25→23:17)
[2017-11-08] MEDS: Propofol 1000 mg/100 ml Inj 1,000 MG/100 ML BOTTLE IV.CONT PRN ×10 (00:26→23:23)
[2017-11-08] MEDS: Dexmedetomidine Inj 1,000 MCG in Sodium Chlor 0.9% Inj 240 ML IV.CONT PRN ×4 (02:24→23:44)
--- NOTE | 2017-11-08 05:38 | XR ---
EXAM DATE: 11/08/2017 5:07 AM EDT AGE/SEX: 52 years / Male INDICATIONS: Shortness of breath. CLINICAL DATA: This is the patient's subsequent encounter. Patient reports that signs and symptoms h ave been present for 1 week and indicates a pain score of Nonresponsive. MEDICAL/SURGICAL HISTORY: Non-responsive. Non-responsive. COMPARISON: [facility] [place]ST 1V SINGLE AP, 11/06/2017. . FINDINGS: There are bilateral infiltrates most pronounced in the left lung diffusely. Endotracheal tube and ent katt tube are noted. Left jugular line identified. No effusions. CONCLUSION: Increasing airspace disease left lung. Electronically signed by: Nemesio Reina MD 11/08/2017 5:36 AM EDT
[2017-11-08] MEDS: Insulin NovoLOG Aspart Correctional Sugar Inj SQ SCH ×5 (05:43→23:17)
[2017-11-08 06:15] LABS: Activated Partial Thrombo Time 32.9 sec (24.3-30.1); Baso # (Auto) 0.1 th/mm3 (0.0-0.2); Baso % (Auto) 0.3 % (0.0-2.0); Eos # (Auto) 0.1 th/mm3 (0.0-0.4); Eos % (Auto) 0.4 % (0.0-4.0); Hematocrit 36.3 % (39.0-51.0); Hemoglobin 12.3 gm/dL (13.0-17.0); INR 1.6 Ratio; Lymph # (Auto) 1.3 th/mm3 (1.0-4.8); Lymph % (Auto) 6.2 % (9.0-44.0); Mean Corpuscular HGB Conc 33.8 % (32.0-36.0); Mean Corpuscular Hemoglobin 34.7 pg (27.0-34.0); Mean Corpuscular Volume 102.6 fL (80.0-100.0); Mean Platelet Volume 10.6 fL (7.0-11.0); Mono # (Auto) 1.3 th/mm3 (0.0-0.9); Mono % (Auto) 6.6 % (0.0-8.0); Neut # (Auto) 17.3 th/mm3 (1.8-7.7); Neut % (Auto) 86.5 % (16.0-70.0); Platelet Count 70 th/mm3 (150-450); Prothrombin Time 16.1 sec (9.8-11.6); Red Blood Count 3.54 mil/mm3 (4.50-5.90); Red Cell Distribution Width 15.3 % (11.6-17.2)
[2017-11-08 07:47] LABS: Chloride 101 meq/L (98-107); Potassium 5.1 meq/L (3.5-5.1); Sodium 140 meq/L (136-145)
[2017-11-08 07:48] LABS: Anion Gap 15 meq/L (5-15); Blood Urea Nitrogen 96 mg/dL (7-18); Calcium 7.8 mg/dL (8.5-10.1); Glomerular Filtration Rate 6 mL/min (>89); Glucose,Random 149 mg/dL (74-106); Magnesium 3.1 mg/dL (1.5-2.5); Phosphorus 9.2 mg/dL (2.5-4.9)
[2017-11-08 07:49] LABS: Alanine Aminotransferase 82 U/L (12-78); Albumin 2.3 g/dL (3.4-5.0); Alkaline Phosphatase 158 U/L (45-117); Aspartate Aminotransferase 134 U/L (15-37); Total Protein 7.3 g/dL (6.4-8.2)
[2017-11-08 08:04] LABS: Lymphocytes 4 % (9-44); Metamyelocytes 2 % (0-1); Monocytes 10 % (0-8); Myelocytes 1 % (0-0); Toxic Granulation 1+; Toxic Vacuolation Present
[2017-11-08] MEDS: Chlorhexidine 0.12% Oral Kit 15 ML UDC OROPHARYNG SCH ×2 (09:08→20:37)
[2017-11-08] MEDS: Calcium Acetate 667 MG Capsule PO SCH ×3 (09:11→17:50)
[2017-11-08] MEDS: rifAXIMin 550 MG Tablet PO SCH ×2 (09:11→20:37)
[2017-11-08] MEDS: Senna/Docusate Sodium 8.6/50 MG Tablet PO SCH ×2 (09:11→20:37)
[2017-11-08] MEDS: Polyethylene Glycol 3350 17 GM Packet PO SCH ×2 (09:12→20:37)
[2017-11-08] MEDS: Hypromellose 0.3% Opth Gel 10 GM Bottle EACH EYE SCH ×2 (09:12→20:37)
[2017-11-08] MEDS: Mupirocin 2% Nasal Oint Topical Syringe EACH NARE SCH ×2 (09:19→20:37)
--- NOTE | 2017-11-08 10:06 | P.PNNP ---
Subjective Interval history: Remains intubated and sedated. Hemodialysis yesterday tolerated well. Not tolerating tube feeding. <Sharon Sultana - Last Filed: 11/08/17 10:02> Physical Exam Vital signs: Vital Signs 11/07/17 10:15 11/07/17 10:30 11/07/17 10:45 Temperature Pulse Rate 52 L 52 L 52 L Respiratory Rate 20 20 21 Blood Pressure 101/52 L 99/52 L 104/56 L Pulse Oximetry 92 L 92 L 93 L 11/07/17 11:00 11/07/17 11:15 11/07/17 11:30 Temperature Pulse Rate 54 L 54 L 55 L Respiratory Rate 27 H 29 H 28 H Blood Pressure 103/55 L 108/58 L 111/59 L Pulse Oximetry 92 L 94 L 94 L 11/07/17 11:39 11/07/17 12:00 11/07/17 12:30 Temperature Pulse Rate 55 L 58 L 61 Respiratory Rate 20 20 28 H Blood Pressure 106/56 L 103/62 Pulse Oximetry 94 L 94 L 94 L 11/07/17 13:00 11/07/17 13:30 11/07/17 14:00 Temperature Pulse Rate 63 62 64 Respiratory Rate 23 23 21 Blood Pressure 108/59 L 134/63 131/65 Pulse Oximetry 92 L 93 L 93 L 11/07/17 14:30 11/07/17 15:00 11/07/17 15:30 Temperature Pulse Rate 62 64 62 Respiratory Rate 24 21 20 Blood Pressure 118/74 130/75 116/69 Pulse Oximetry 93 L 92 L 94 L 11/07/17 16:00 11/07/17 16:20 11/07/17 16:21 Temperature Pulse Rate 62 61 Respiratory Rate 20 20 20 Blood Pressure 115/68 Pulse Oximetry 94 L 93 L 11/07/17 16:30 11/07/17 17:00 11/07/17 18:00 Temperature Pulse Rate 61 61 64 Respiratory Rate 20 20 Blood Pressure 114/67 112/64 Pulse Oximetry 93 L 93 L 11/07/17 20:00 11/07/17 20:16 11/07/17 22:00 Temperature 98.3 F Pulse Rate 61 67 61 Respiratory Rate 20 20 Blood Pressure 114/60 Pulse Oximetry 93 L 95 11/07/17 23:53 11/08/17 00:00 11/08/17 02:00 Temperature 97.5 F L Pulse Rate 59 L 59 L 59 L Respiratory Rate 20 20 Blood Pressure 108/59 L Pulse Oximetry 95 94 L 11/08/17 03:36 11/08/17 03:42 11/08/17 04:00 Temperature 98 F Pulse Rate 59 L 60 Respiratory Rate 23 20 20 Blood Pressure 122/57 L Pulse Oximetry 93 L 94 L 11/08/17 06:00 11/08/17 07:31 Temperature Pulse Rate 62 60 Respiratory Rate 20 Blood Pressure Pulse Oximetry 94 L Intake & Output 11/07/17 11/08/17 11/08/17 18:59 06:59 18:59 Intake Total 900 / 900 750 / 750 350 / 350 Output Total 2540 / 2540 Balance -1640 / -1640 750 / 750 350 / 350 Weight 132 kg Intake: IV 900 / 900 750 / 750 350 / 350 Precedex Inj 1,000 MCG In NS 500 / 500 250 / 250 250 / 250 Inj 240 ML @ 0.2 MCG/KG/HR 7 mls/hr IV.CONT TITRATE PRN Rx#: [id number] Diprivan 1000 mg/100 ml Inj 1, 200 / 200 500 / 500 100 / 100 000 mg In 100 ml @ 5 MCG/KG/MIN 3.81 mls/hr IV.CONT TITRATE PRN Rx#:[id number] Flexbumin 25% Inj 100 ML @ 60 200 / 200 mls/hr IV.SIG WITH DIALYSIS PRN Rx#:[id number] Output: Urine 0 / 0 Stool 40 / 40 Hemodialysis Amount 2500 / 2500 Other: Date of Last Bowel Movement 11/05/17 11/08/17 # Bowel Movements 1 Narrative: GENERAL: Intubated and sedated SKIN: Warm and dry. Left IJ vas cath. HEAD: Normocephalic. EYES: No scleral icterus. No injection or drainage. NECK: Supple, trachea midline. No JVD or lymphadenopathy. CARDIOVASCULAR: Regular rate and rhythm without murmurs, gallops, or rubs. RESPIRATORY: Breath sounds decreased bilaterally. No accessory muscle use. Intubated GASTROINTESTINAL: Abdomen soft, non-tender, large. OG tube MUSCULOSKELETAL: No cyanosis, generalized edema. - Urinary Catheter Management Indwelling Urethral Catheter Cath placed during this visit: yes Reason for continuing: Hourly intake/output Insertion date: 10/31/17 Insertion time: 10:30 <KwanhollySharon - Last Filed: 11/08/17 10:02> Vital signs: Vital Signs 11/07/17 22:00 11/07/17 23:00 11/07/17 23:30 Temperature Pulse Rate 61 61 60 Respiratory Rate 20 20 Blood Pressure 108/59 L 107/58 L Pulse Oximetry 94 L 94 L 11/07/17 23:53 11/08/17 00:00 11/08/17 00:30 Temperature 97.5 F L Pulse Rate 59 L 59 L 59 L Respiratory Rate 20 20 20 Blood Pressure 108/59 L 107/59 L Pulse Oximetry 95 94 L 94 L 11/08/17 01:00 11/08/17 01:30 11/08/17 02:00 Temperature Pulse Rate 59 L 59 L 59 L Respiratory Rate 20 20 20 Blood Pressure 107/58 L 107/58 L 107/59 L Pulse Oximetry 94 L 94 L 94 L 11/08/17 02:30 11/08/17 03:00 11/08/17 03:31 Temperature Pulse Rate 58 L 58 L 60 Respiratory Rate 20 20 23 Blood Pressure 107/59 L 112/61 113/56 L Pulse Oximetry 94 L 95 92 L 11/08/17 03:36 11/08/17 03:42 11/08/17 04:00 Temperature 98 F Pulse Rate 59 L 60 Respiratory Rate 23 20 25 H Blood Pressure 122/57 L Pulse Oximetry 93 L 92 L 11/08/17 04:30 11/08/17 05:00 11/08/17 05:30 Temperature Pulse Rate 61 61 62 Respiratory Rate 20 20 20 Blood Pressure 121/60 121/59 L 118/60 Pulse Oximetry 94 L 95 95 11/08/17 06:00 11/08/17 06:30 11/08/17 07:00 Temperature Pulse Rate 62 61 61 Respiratory Rate 20 20 20 Blood Pressure 112/58 L 111/59 L 109/58 L Pulse Oximetry 94 L 94 L 93 L 11/08/17 07:30 11/08/17 07:31 11/08/17 08:00 Temperature 97.4 F L Pulse Rate 60 60 59 L Respiratory Rate 20 20 20 Blood Pressure 107/57 L 105/55 L Pulse Oximetry 93 L 94 L 94 L 11/08/17 08:30 11/08/17 09:00 11/08/17 09:30 Temperature Pulse Rate 59 L 59 L 59 L Respiratory Rate 21 20 20 Blood Pressure 101/85 100/58 L 100/57 L Pulse Oximetry 92 L 94 L 94 L 11/08/17 10:00 11/08/17 10:30 11/08/17 11:00 Temperature Pulse Rate 59 L 58 L 58 L Respiratory Rate 20 20 20 Blood Pressure 100/58 L 100/58 L 100/55 L Pulse Oximetry 94 L 94 L 94 L 11/08/17 11:31 11/08/17 11:52 11/08/17 12:00 Temperature Pulse Rate 59 L 57 L 57 L Respiratory Rate 20 20 20 Blood Pressure 104/62 94/53 L Pulse Oximetry 92 L 94 L 94 L 11/08/17 12:30 11/08/17 13:00 11/08/17 13:30 Temperature Pulse Rate 58 L 58 L 58 L Respiratory Rate 20 20 20 Blood Pressure 99/56 L 109/57 L 112/58 L Pulse Oximetry 94 L 94 L 94 L 11/08/17 14:00 11/08/17 14:30 11/08/17 15:00 Temperature Pulse Rate 58 L 57 L 56 L Respiratory Rate 20 20 20 Blood Pressure 112/57 L 112/57 L 112/57 L Pulse Oximetry 94 L 94 L 94 L 11/08/17 15:44 11/08/17 16:00 11/08/17 16:12 Temperature 96.4 F L Pulse Rate 56 L 57 L 57 L Respiratory Rate 23 26 H 48 H Blood Pressure 111/61 106/58 L 89/53 L Pulse Oximetry 98 95 98 11/08/17 16:18 11/08/17 16:20 11/08/17 16:30 Temperature Pulse Rate 57 L 57 L Respiratory Rate 23 20 Blood Pressure 92/54 L 95/55 L Pulse Oximetry 96 94 L 93 L 11/08/17 18:00 11/08/17 19:38 11/08/17 20:00 Temperature 97.5 F L Pulse Rate 55 L 54 L 54 L Respiratory Rate 20 20 Blood Pressure 95/53 L Pulse Oximetry 94 L Intake & Output 11/08/17 11/08/17 11/09/17 06:59 18:59 06:59 Intake Total 750 / 750 1091 / 1091 100 / 100 Balance 750 / 750 1091 / 1091 100 / 100 Weight 132 kg Intake: IV 750 / 750 1000 / 1000 100 / 100 Precedex Inj 1,000 MCG In NS 250 / 250 500 / 500 Inj 240 ML @ 0.2 MCG/KG/HR 7 mls/hr IV.CONT TITRATE PRN Rx#: [id number] Diprivan 1000 mg/100 ml Inj 1, 500 / 500 500 / 500 100 / 100 000 mg In 100 ml @ 5 MCG/KG/MIN 3.81 mls/hr IV.CONT TITRATE PRN Rx#:[id number] Tube Feeding / Other: Date of Last Bowel Movement 11/08/17 11/08/17 # Bowel Movements 1 - Urinary Catheter Management Indwelling Urethral Catheter Cath placed during this visit: no <Crystal Valadez - Last Filed: 11/08/17 21:15> Assessment and Plan - Assessment (1) Acute kidney injury Code(s): N17.9 - Acute kidney failure, unspecified Status: Acute Plan: Acute kidney injury with a creatinine initially at 1.33 and at day of consult 2.89 NANETTE most likely ATN from hypotension possible vancomycin toxicity with vancomycin level of 30.9. No baseline creatinine available. CT of abdomen with unremarkable kidneys. Urine negative for proteinuria Creatinine 8.92 Anuric Hyperphosphatemia 9.2, on PhosLo Monitor strict I+O Avoid IVF Avoid nephrotoxins including aminoglycosides and IV contrast Continue to monitor urinary output, BMP, and watch for renal recovery. Hemodialysis yesterday with removal of 2.5 liters of fluid removal Hemodialysis tomorrow <Sharon Sultana - Last Filed: 11/08/17 10:02> - Assessment (1) Acute kidney injury Code(s): N17.9 - Acute kidney failure, unspecified Status: Acute - Attending Attestation Patient seen and examined, agree with above. Creatinine is still elevated. HD will be in AM. <Crystal Valadez - Last Filed: 11/08/17 21:15>
[2017-11-08] MEDS: Hydrocortisone Sod Succinate 100 MG Vial IV.PUSH SCH ×2 (10:38→23:16)
[2017-11-08] MEDS ORDERED: Calcium Acetate 667 MG Capsule PO SCH (11:11)
[2017-11-08] MEDS ORDERED: Methylnaltrexone Inj 12 MG/0.6 ML Vial SQ ONE (11:12)
[2017-11-08] MEDS ORDERED: Mineral Oil 55% Emulsion 480 ML PO ONE (11:12)
[2017-11-08] MEDS ORDERED: Diatrizoate Meglum/Diatrizoate Sod Liq 9 ML UDC PO ONE (11:13)
--- NOTE | 2017-11-08 11:14 | P.PNCC ---
Subjective Subjective Remarks/Hospital Course: 52-year-old male with a past medical history of alcohol dependence who sought medical attention after a friend found him in the hotel room with fever and ill appearance after episode of binge drinking. Patient has multiple bruises and states he has been falling often which he attributes to poor footwear. His primary complaint is pain and tenderness of his sacrum and L4/L5 region. Denies IVDU. Denies CP, SOB, Cough, sputum production, urinary symptoms , abdominal pain, nausea, vomiting, headache, neck pain, neck stiffness. He does report some diarrhea, nonbloody, non melena and difficult to quantify. He says he has "always drank EtOH heavily, but it has been drinking more than usual over the last 2 weeks". He is tremulous, hypertensive, tachycardic with clinical appearance of EtOH withdrawal. ED workup included CT brain which is negative, CT chest with RLL consolidation, CT abd/pelvis with wall thickening c/ w colitis of ascending/transverse colon. WBC 23.5, lactic acid 11.4. In the ED he has received vancomycin, piperacillin/tazobactam, NS 2 L bolus, magnesium sulfate 1 gram IV, Ativan 2 mg IV, Thiamine 100 mg IV, Ofirmev 1 gram IV. 10/31: Remains on norepinephrine drip at 8 mcg/min. Weaning FiO2 and ventilator. Minimal response on the ventilator on propofol and dexmedetomidine drips. MRI of the lumbar spine, sacrum and foot will be performed this afternoon. Noted gram-positive cocci bacteremia. 2D echocardiogram ordered repeat blood cultures today. Currently on vancomycin and piperacillin/ tazobactam. 11/01 Patient is sedated with Diprivan and Fentanyl drips. On Levophed 9 mics. Renal function worse this morning with Cr: 2.89 from 1.95. Afebrile. 11/02 Patient remains intubated and sedated. Renal function continue to decline with Cr: 4.22 from 2.89 with poor UOP. Afebrile. Levophed down 1 jaison. 11/03 Patient remains intubated and sedated on Fentanyl infusion. Afebrile. HD initiated yesterday with removal 2L. Off Levophed. 11/04: Remains intubated sedated encephalopathy. Hemodialysis yesterday and apparently only 1 L was removed creatinine now increased to 5.98. Platelet count 56. Continues to remain oliguric to anuric. 11/05: Remains intubated now sedated with propofol. Tolerating CPAP but not following commands. Lab work is pending today. Precedex will be started to facilitate vent weaning. Continues to have high residuals start Reglan IV. CXR yesterday showed pulmonary edema, will request HD with fluid removal today 11/06 Patient remains intubated and sedated with Precedex and Diprivan infusion. Afebrile. On trickle feeds due to high residuals. s/p HD yesterday with 6L fluid removal. 11/07: No bowel movement times several days. T-max 99.7. Remains on dexmedetomidine at 1 mcg/kg/h and propofol drip at 30 mcg/kg/min. Hemodialysis today SUBJECTIVE: 11/08: Afebrile. Remains on dexmedetomidine drip and propofol drip for sedation. -2.5 hemodialysis yesterday. Central line been removed. Small bowel movement yesterday. Will check CT abdomen/pelvis today with oral contrast only. Objective Vital Signs / I&O: Vital Signs 11/07/17 11:15 11/07/17 11:30 11/07/17 11:39 Temperature Pulse Rate 54 L 55 L 55 L Respiratory Rate 29 H 28 H 20 Blood Pressure 108/58 L 111/59 L Pulse Oximetry 94 L 94 L 94 L 11/07/17 12:00 11/07/17 12:30 11/07/17 13:00 Temperature Pulse Rate 58 L 61 63 Respiratory Rate 20 28 H 23 Blood Pressure 106/56 L 103/62 108/59 L Pulse Oximetry 94 L 94 L 92 L 11/07/17 13:30 11/07/17 14:00 11/07/17 14:30 Temperature Pulse Rate 62 64 62 Respiratory Rate 23 21 24 Blood Pressure 134/63 131/65 118/74 Pulse Oximetry 93 L 93 L 93 L 11/07/17 15:00 11/07/17 15:30 11/07/17 16:00 Temperature Pulse Rate 64 62 62 Respiratory Rate 21 20 20 Blood Pressure 130/75 116/69 115/68 Pulse Oximetry 92 L 94 L 94 L 11/07/17 16:20 11/07/17 16:21 11/07/17 16:30 Temperature Pulse Rate 61 61 Respiratory Rate 20 20 20 Blood Pressure 114/67 Pulse Oximetry 93 L 93 L 11/07/17 17:00 11/07/17 18:00 11/07/17 20:00 Temperature 98.3 F Pulse Rate 61 64 61 Respiratory Rate 20 20 Blood Pressure 112/64 114/60 Pulse Oximetry 93 L 93 L 11/07/17 20:16 11/07/17 22:00 11/07/17 23:00 Temperature Pulse Rate 67 61 61 Respiratory Rate 20 20 Blood Pressure 108/59 L Pulse Oximetry 95 94 L 11/07/17 23:30 11/07/17 23:53 11/08/17 00:00 Temperature 97.5 F L Pulse Rate 60 59 L 59 L Respiratory Rate 20 20 20 Blood Pressure 107/58 L 108/59 L Pulse Oximetry 94 L 95 94 L 11/08/17 00:30 11/08/17 01:00 11/08/17 01:30 Temperature Pulse Rate 59 L 59 L 59 L Respiratory Rate 20 20 20 Blood Pressure 107/59 L 107/58 L 107/58 L Pulse Oximetry 94 L 94 L 94 L 11/08/17 02:00 11/08/17 02:30 11/08/17 03:00 Temperature Pulse Rate 59 L 58 L 58 L Respiratory Rate 20 20 20 Blood Pressure 107/59 L 107/59 L 112/61 Pulse Oximetry 94 L 94 L 95 11/08/17 03:31 11/08/17 03:36 11/08/17 03:42 Temperature Pulse Rate 60 59 L Respiratory Rate 23 23 20 Blood Pressure 113/56 L Pulse Oximetry 92 L 93 L 11/08/17 04:00 11/08/17 04:30 11/08/17 05:00 Temperature 98 F Pulse Rate 60 61 61 Respiratory Rate 25 H 20 20 Blood Pressure 122/57 L 121/60 121/59 L Pulse Oximetry 92 L 94 L 95 11/08/17 05:30 11/08/17 06:00 11/08/17 06:30 Temperature Pulse Rate 62 62 61 Respiratory Rate 20 20 20 Blood Pressure 118/60 112/58 L 111/59 L Pulse Oximetry 95 94 L 94 L 11/08/17 07:00 11/08/17 07:30 11/08/17 07:31 Temperature Pulse Rate 61 60 60 Respiratory Rate 20 20 20 Blood Pressure 109/58 L 107/57 L Pulse Oximetry 93 L 93 L 94 L 11/08/17 08:00 11/08/17 08:30 11/08/17 09:00 Temperature 97.4 F L Pulse Rate 59 L 59 L 59 L Respiratory Rate 20 21 20 Blood Pressure 105/55 L 101/85 100/58 L Pulse Oximetry 94 L 92 L 94 L 11/08/17 09:30 11/08/17 10:00 11/08/17 10:30 Temperature Pulse Rate 59 L 59 L 58 L Respiratory Rate 20 20 20 Blood Pressure 100/57 L 100/58 L 100/58 L Pulse Oximetry 94 L 94 L 94 L 11/08/17 11:00 Temperature Pulse Rate 58 L Respiratory Rate 20 Blood Pressure 100/55 L Pulse Oximetry 94 L Intake & Output 11/07/17 11/08/17 11/08/17 18:59 06:59 18:59 Intake Total 900 / 900 750 / 750 450 / 450 Output Total 2540 / 2540 Balance -1640 / -1640 750 / 750 450 / 450 Weight 132 kg Intake: IV 900 / 900 750 / 750 450 / 450 Precedex Inj 1,000 MCG In NS 500 / 500 250 / 250 250 / 250 Inj 240 ML @ 0.2 MCG/KG/HR 7 mls/hr IV.CONT TITRATE PRN Rx#: [id number] Diprivan 1000 mg/100 ml Inj 1, 200 / 200 500 / 500 200 / 200 000 mg In 100 ml @ 5 MCG/KG/MIN 3.81 mls/hr IV.CONT TITRATE PRN Rx#:[id number] Flexbumin 25% Inj 100 ML @ 60 200 / 200 mls/hr IV.SIG WITH DIALYSIS PRN Rx#:[id number] Output: Urine 0 / 0 Stool 40 / 40 Hemodialysis Amount 2500 / 2500 Other: Date of Last Bowel Movement 11/05/17 11/08/17 11/08/17 # Bowel Movements 1 Result Diagrams: 11/08/17 05:24 11/08/17 05:24 Other Results: Microbiology 11/04/17 03:45 Sputum - Endotracheal Gram Stain - Final 11/04/17 03:45 Sputum - Endotracheal Sputum Culture - Final No growth in 48 hours 11/01/17 04:40 Blood - Peripheral Aerobic Blood Culture - Final No growth in 5 days 11/01/17 04:40 Blood - Peripheral Anaerobic Blood Culture - Final No growth in 5 days 11/01/17 06:39 Blood - Peripheral Aerobic Blood Culture - Final No growth in 5 days 11/01/17 06:39 Blood - Peripheral Anaerobic Blood Culture - Final QNS - See aerobic report. 11/03/17 05:30 Stool Enteric Pathogens (PCR) - Final 10/30/17 17:50 Blood - Peripheral Aerobic Blood Culture - Final Group A beta (Strep pyogenes) 10/30/17 17:50 Blood - Peripheral Anaerobic Blood Culture - Final Group A beta (Strep pyogenes) 10/30/17 17:50 Blood - Peripheral Aerobic Blood Culture - Final Group A beta (Strep pyogenes) Staphylococcus aureus 10/30/17 17:50 Blood - Peripheral Anaerobic Blood Culture - Final Group A beta (Strep pyogenes) 10/31/17 04:55 Sputum - Endotracheal Gram Stain - Final 10/31/17 04:55 Sputum - Endotracheal Sputum Culture - Final Group A beta (Strep pyogenes) 10/31/17 01:10 Urine - Catheterized Urine Streptococcus pneumoniae Antigen ( M - Final Presumptive negative for streptococcus pneumoniae antigen, suggesting no current or recent infection. Infection due to Streptococcus pneumoniae cannot be ruled out since the antigen present in the sample may be below the detection limit of the test. 10/31/17 01:10 Urine - Catheterized Urine Legionella Antigen - Final Presumptive negative for Legionella pneumophila serogroup 1 antigen in urine, suggesting no recent or recurrent infection. Infection due to Legionella cannot be ruled out since other serogroups and species may cause disease, antigen may not be present in urine in early infection, and the level of antigen present in the urine may be below the detection limit of the test. 10/31/17 02:30 Nasal Wash Influenza Types A,B Antigen - Final Negative for FLU A and B antigen Infection due to influenza A or B cannot be ruled out since the antigen present in the sample may be below the detection limit of the test. Imaging: Abdomen/Pelvis CT 10/30/17 17:35 CONCLUSION: 1. Mild colitis predominantly on the right side with trace free fluid and some inflammatory changes on the right. No bowel obstruction. No free air. 2. Multiple layering gallstones. 3. Subsegmental basilar airspace consolidation in the lungs. Differential diagnosis includes mild pneumonia. 4. Fatty liver enlarged to 25 cm. Chest X-Ray 10/30/17 17:35 CONCLUSION: Subsegmental basilar airspace disease, right greater than left. Differential diagnosis includes pneumonia and atelectasis, in patient with fever. Head CT 10/30/17 17:35 CONCLUSION: 1. No acute intracranial abnormalities. . Chest CTA 10/30/17 19:02 CONCLUSION: 1. Suboptimal bolus but no evidence for central pulmonary emboli. 2. Patchy airspace consolidation right lung base most characteristic of pneumonia. No significant effusion. Foot X-Ray 10/30/17 21:27 CONCLUSION: No acute findings. Mild degenerative change in the right foot. Prominent calcaneal bone spurs. Foot X-Ray 10/30/17 21:27 CONCLUSION: No acute findings. Moderate degenerative change. Bone spurs posterior calcaneus. Lumbar Spine CT 10/30/17 21:43 CONCLUSION: 1. No acute fracture. 2. 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 3. At L5-S1 there is a small central disc protrusion. Mild bilateral foraminal encroachment. Thoracic Spine CT 10/30/17 21:43 CONCLUSION: 1. Negative for acute traumatic injury to the thoracic spine. Small Schmorl's nodes in the lower thoracic spine. Foot MRI 10/31/17 00:00 CONCLUSION: 1. Lumbar Spine MRI 10/31/17 00:00 CONCLUSION: Extruded disc fragment with a donor site at L4-L5 lying posterior to the L4 vertebral body severe right-sided and moderate left-sided foraminal narrowing. There is no evidence of abscess. Sacrum/Coccyx MRI 10/31/17 00:00 CONCLUSION: 1. Negative MRI of the sacrum Chest X-Ray 10/31/17 01:38 CONCLUSION: 1. Interval intubation and placement of right internal jugular central venous line with no pneumothorax. 2. Placement of nasogastric tube. 3. Mid inspiratory study with crowding of the lung vasculature. Chest X-Ray 11/01/17 06:00 CONCLUSION: Mid inspiratory study with crowding of the lung vasculature and perihilar and bibasilar opacities which appear mildly increased. Abdomen X-Ray 11/01/17 10:38 CONCLUSION: Nonobstructive bowel gas pattern. Chest X-Ray 11/02/17 00:00 CONCLUSION: Bilateral central lines including a new left Vas-Cath in good position. Bibasilar areas of consolidation or atelectasis. Abdomen X-Ray 11/03/17 00:00 CONCLUSION: Increased distention of air-filled regions of the colon. Mild air-filled distention of the stomach. Abdomen X-Ray 11/04/17 00:00 CONCLUSION: Unremarkable exam. No evidence of bowel obstruction. Chest X-Ray 11/04/17 08:13 CONCLUSION: Stable lines and tubes. Hypoinflation of the lungs with progressive worsening airspace opacity. This may reflect pulmonary edema or volume overload or progressive infectious process. Chest X-Ray 11/06/17 06:00 CONCLUSION: Left lower lobe airspace disease and small left effusion suspected. Abdomen X-Ray 11/06/17 09:20 CONCLUSION: Nonobstructive bowel gas pattern. No pneumoperitoneum. Abdomen X-Ray 11/07/17 00:00 CONCLUSION: NG tip in stomach. No free air. Chest X-Ray 11/08/17 06:00 CONCLUSION: Increasing airspace disease left lung. Objective Remarks: GENERAL: Patient is 52 yo intubated and sedated with propofol and dexmedetomidine drip SKIN: Warm and dry. HEAD: Normocephalic. EYES: Pupils are round 1 mm bilaterally and brisk. + scleral icterus. No injection or drainage. NECK: Supple, trachea midline. No JVD or lymphadenopathy. CARDIOVASCULAR: Tachycardic, RR. S1, S2 predose 4. Without murmur, gallops, or rubs. RESPIRATORY: Breath sounds appreciated anteriorly with few bibasilar crackles. GASTROINTESTINAL: Abdomen soft, non-tender, nondistended. Hypoactive bowel sounds appreciated. MUSCULOSKELETAL: No significant peripheral edema. Neuro: Intubated, sedated. Partially opens eyes moves extremities, did not follow commands Assessment and Plan - Assessment and Plan Plan: NEURO/PSYCH: Delirium tremens Acute toxic metabolic encephalopathy EtOH dependence CT brain 10/30- for acute intracranial abnormality On propofol at 30 m/kg/min for sedation and vent synchrony. Dexmedetomidine 1 g/kg/h to facilitate vent weaning Continue thiamine/folic acid/multivitamin. Lorazepam discontinued for 0 protocol 10/31 EEG: Encephalopathy, no epileptiform activity. Acetaminophen 650 mg p.o. every 8 hours as needed fever ETOH - 147 on admission RESP: Acute respiratory failure Aspiration pneumonia Intubated 10/31 for airway protection. PRVC 20 TV 550, IT:1.0, PEEP:5, FIO2: 50% Ventilator bundle, daily CPAP trials but mental status will not permit extubation Albuterol/ipratropium aerosols every 4 hours with albuterol aerosols every 2 hours as needed ABG/chest x-ray CV: Fluid overload/pulmonary edema Lactic acidemia- resolved Elevated troponin likely type II non-STEMI Off Levophed monitor HR and BP keep MAP>65mmHg Lactic acid cleared 1.0 Echo showed EF 65-70% Monitor trop (trending down). on stress dose stress steroids- HC 25ml IV q12 continue to wean stop date GI: Right/transverse mild colitis/acute Alcoholic hepatitis Hepatic steatosis Hepatosplenomegaly. Liver is 25 cm. Cholelithiasis Hyperammonia Elevated total bilirubin On Lactulose 30ml QID and rifaximin 550 twice daily for elevated ammonia, currently 11 Continue tube feeds Nepro @10ml/hr with goal rate 40ml/hr CT abdomen and pelvis demonstrates thickening of right colon extending into transverse colon. There is hepatomegaly and steatosis. On metoclopramide 5 mg every 8 hours for prokinetic agent Docusate serum/senna twice daily, polythene glycol 17 g twice daily, lactulose 4 times daily, mineral oil 30 cc 1 and enema/manual disimpaction. Check CT abdomen/pelvis today FEN/RENAL: Acute kidney failure No hydronephrosis on CT abdomen/pelvis. Monitor renal function, I/O's, avoid nephrotoxins Renal is following- Dr. Valadez. HD initiated 11/02 with removal 2L. 6L removed 11/05. 2.5 L removed 11/07 ID: Group A beta Strep bacteremia 07/05 bilaterally Cellulitis toes bilaterally Leukocytosis...trending down He received piperacillin/tazobactam and vancomycin in the emergency department. Blood culture x 2 10/30 -gram-positive cocci/strep pyogenes - BC 11/01: NGTD Sputum 11/04: NGTD Sputum 10/31 -Strep Pyogenes C diff negative urine pneumococcal antigen, urine Legionella antigen, influenza a and B- all negative Infectious disease is following- Dr. Segovia Abx per ID (cefazolin) monitor for signs of infections ( Fever, WBC) MRI foot: No abscess, HEME: Acute coagulopathy DIC Leukocytosis Macrocytic anemia Thrombocytopenia Monitor coags/CBC/platelets. There is no significant active bleeding at this time, Monitor CBC. coags. s/p 2u FFP 11/02 for vascath placement ENDO: Acute hyperglycemia ? undiagnosed diabetes mellitus. Sliding-scale insulin with aspart insulin with Accu-Cheks every 6 hours to maintain euglycemia/medium regimen MSK: L5/S1 disc protrusion Pars defect L4/L5 Not a candidate for surgical intervention at this time per Dr. King consult PROPH: SCDs for DVT prophylaxis. Avoid pharmacologic DVT prophylaxis at this time due to coagulopathy, thrombocytopenia. Lansoprazole for stress ulcer prophylaxis ACCESS: Right IJ central venous line placed 10/31. Discontinue 11/07. Left radial arterial line placed 11/01. Left IJ vascath placed 11/02 CCT 30 mins
[2017-11-08 11:43] LABS: ABG Base Excess -4.2 mmol/L (-2-2); ABG PCO2 25 mmHg (38-42); ABG PO2 63 mmHG (61-120)
--- NOTE | 2017-11-08 16:15 | CT ---
EXAM DATE: 11/08/2017 4:03 PM EDT AGE/SEX: 52 years / Male INDICATIONS: Patient with abdominal distention and constipation. Patient being evaluated for possibl e bowel structure. . CLINICAL DATA: This is the patient's initial encounter. Patient reports that signs and symptoms have been present for 4 - 6 days and indicates a pain score of Nonresponsive. MEDICAL/SURGICAL HISTORY: Non-responsive. Non-responsive. RADIATION DOSE: 28.42 CTDI (mGy) COMPARISON: [facility] – [place], CT ABDOMEN & PELVIS W CONTRAST, 10/30/2017. . TECHNIQUE: Multiple contiguous axial images were obtained through the abdomen. Images were obtained using multiple row detector helical technique. Using automated exposure control and adjustment of the mA and/or kV according to patient size, radiation dose was kept as low as reasonably achievable to o btain optimal diagnostic quality images. DICOM format image data is available electronically for rev iew and comparison. FINDINGS: Study is degraded by streak and motion artifact. Lower Lungs: There is a new small to moderate left effusion with consolidation in the left lung base. There is consolidation in the right lung base with minimal pleural fluid as well. Liver: The liver has a homogeneous density without space-occupying lesion. There is no dilation of th e biliary tree. There are multiple calcified gallstones again noted layering dependently in the gallb ladder with no definite wall thickening. Spleen: Homogeneous density without enlargement. Pancreas: Unremarkable without mass or calcification. Kidneys: Normal in size and shape. No evidence of mass or hydronephrosis. Adrenal Glands: Unremarkable. Aorta: The aorta and proximal iliac vessels are grossly unremarkable without aneurysmal dilation. Bowel/Mesentery: No oral contrast was given limiting the sensitivity. There are multiple loops of non dilated air-containing small bowel with multiple small air-fluid levels. There is liquid stool in the colon with multiple air-fluid levels as well. There is a small amount of ascitic fluid present. Abdominal Wall: Intact. Retroperitoneum: No evidence of adenopathy in the retrocrural, para-aortic, or deep pelvic regions. Bladder: Contours are smooth. There is a small gas bubble in the bladder. Reproductive Organs: No abnormal masses or calcifications seen. Inguinal: The inguinal region is unremarkable without evidence of adenopathy. Bony Structures: Unremarkable. CONCLUSION: 1. Nonspecific, nonobstructive bowel gas pattern most consistent with an ileus and/or gastroenteriti s. There is a small amount of ascitic fluid. The study was performed without intravenous or oral cont rast. 2. Consolidation now noted in both lung bases with small effusions left greater than right. 3. Multiple calcified gallstones again noted. 4. Small gas bubble in the bladder likely due to recent instrumentation. Electronically signed by: Cosmo Pope MD 11/08/2017 4:13 PM EDT
[2017-11-09] MEDS: Propofol 1000 mg/100 ml Inj 1,000 MG/100 ML BOTTLE IV.CONT PRN ×9 (01:49→22:17)
[2017-11-09] MEDS: Oral Hygiene Kit OROPHARYNG SCH ×4 (05:11→23:12)
[2017-11-09] MEDS: Insulin NovoLOG Aspart Correctional Sugar Inj SQ SCH ×4 (05:11→23:12)
--- NOTE | 2017-11-09 05:29 | XR ---
EXAM DATE: 11/09/2017 5:21 AM EDT AGE/SEX: 52 years / Male INDICATIONS: Shortness of breath, possible pulmonary disease. CLINICAL DATA: This is the patient's subsequent encounter. Patient reports that signs and symptoms h ave been present for 1 week and indicates a pain score of Nonresponsive. MEDICAL/SURGICAL HISTORY: Non-responsive. Non-responsive. COMPARISON: [facility] – [place], [place]ST 1V SINGLE AP, 11/08/2017. . FINDINGS: There is a layering left effusion and left lung consolidation is seen greatest in the lower lobe. Lef t jugular line tip overlies the SVC. Endotracheal tube tip terminates 2 cm above the margot. Enteric tube courses beneath the diaphragm. Right lung is clear. CONCLUSION: Stable exam. Electronically signed by: Nemesio Reina MD 11/09/2017 5:28 AM EDT
[2017-11-09] MEDS: Dexmedetomidine Inj 1,000 MCG in Sodium Chlor 0.9% Inj 240 ML IV.CONT PRN ×3 (07:00→22:05)
[2017-11-09] MEDS: Chlorhexidine 0.12% Oral Kit 15 ML UDC OROPHARYNG SCH ×2 (07:33→19:48)
[2017-11-09 08:07] LABS: Baso # (Auto) 0.1 th/mm3 (0.0-0.2); Baso % (Auto) 0.4 % (0.0-2.0); Eos # (Auto) 0.1 th/mm3 (0.0-0.4); Eos % (Auto) 0.4 % (0.0-4.0); Hematocrit 34.9 % (39.0-51.0); Lymph # (Auto) 0.9 th/mm3 (1.0-4.8); Lymph % (Auto) 3.6 % (9.0-44.0); Mean Corpuscular HGB Conc 34.5 % (32.0-36.0); Mean Corpuscular Hemoglobin 34.7 pg (27.0-34.0); Mean Corpuscular Volume 100.8 fL (80.0-100.0); Mean Platelet Volume 10.6 fL (7.0-11.0); Mono % (Auto) 4.2 % (0.0-8.0); Neut % (Auto) 91.4 % (16.0-70.0); Platelet Count 66 th/mm3 (150-450); Red Blood Count 3.47 mil/mm3 (4.50-5.90); Red Cell Distribution Width 15.1 % (11.6-17.2); White Blood Count 24.1 th/mm3 (4.0-11.0)
[2017-11-09 08:28] LABS: Activated Partial Thrombo Time 32.7 sec (24.3-30.1); INR 1.5 Ratio; Prothrombin Time 15.4 sec (9.8-11.6)
[2017-11-09] MEDS: Albumin Human 25% Inj 100 ML IV.SIG PRN ×2 (08:34→08:40)
[2017-11-09 08:37] LABS: Alanine Aminotransferase 77 U/L (12-78); Albumin 2.2 g/dL (3.4-5.0); Alkaline Phosphatase 170 U/L (45-117); Anion Gap 18 meq/L (5-15); Aspartate Aminotransferase 129 U/L (15-37); Blood Urea Nitrogen 113 mg/dL (7-18); Calcium 7.6 mg/dL (8.5-10.1); Carbon Dioxide 18.7 meq/L (21.0-32.0); Chloride 100 meq/L (98-107); Glomerular Filtration Rate 5 mL/min (>89); Glucose,Random 128 mg/dL (74-106); Lipase 2245 U/L (73-393); Magnesium 3.1 mg/dL (1.5-2.5); Potassium 5.5 meq/L (3.5-5.1); Sodium 137 meq/L (136-145); Total Protein 7.2 g/dL (6.4-8.2)
[2017-11-09] MEDS: Heparin 10,000 UNITS/10 ML Vial (for IV use) OTHER PRN (08:37)
[2017-11-09 08:42] LABS: Amylase 152 U/L (25-115)
[2017-11-09 08:52] LABS: Eosinophils 1 % (0-4); Lymphocytes 3 % (9-44); Metamyelocytes 1 % (0-1); Monocytes 5 % (0-8)
[2017-11-09] MEDS: Senna/Docusate Sodium 8.6/50 MG Tablet PO SCH ×2 (08:52→20:08)
[2017-11-09 08:53] LABS: Platelet Morphology Normal (Normal); Toxic Granulation 1+
[2017-11-09] MEDS: Mupirocin 2% Nasal Oint Topical Syringe EACH NARE SCH ×2 (08:53→20:08)
[2017-11-09] MEDS: Polyethylene Glycol 3350 17 GM Packet PO SCH ×2 (08:53→20:07)
[2017-11-09] MEDS: rifAXIMin 550 MG Tablet PO SCH ×2 (08:53→20:08)
[2017-11-09] MEDS: Hypromellose 0.3% Opth Gel 10 GM Bottle EACH EYE SCH ×2 (08:53→20:08)
[2017-11-09] MEDS: Calcium Acetate 667 MG Capsule PO SCH ×3 (08:54→17:36)
--- NOTE | 2017-11-09 10:34 | P.PNNP ---
Subjective Interval history: Seen during hemodialysis. Blood pressure low at times during dialysis. <KwanhollyJamilahSharon - Last Filed: 11/09/17 15:05> Physical Exam Vital signs: Vital Signs 11/08/17 11:00 11/08/17 11:31 11/08/17 11:52 Temperature Pulse Rate 58 L 59 L 57 L Respiratory Rate 20 20 20 Blood Pressure 100/55 L 104/62 Pulse Oximetry 94 L 92 L 94 L 11/08/17 12:00 11/08/17 12:30 11/08/17 13:00 Temperature Pulse Rate 57 L 58 L 58 L Respiratory Rate 20 20 20 Blood Pressure 94/53 L 99/56 L 109/57 L Pulse Oximetry 94 L 94 L 94 L 11/08/17 13:30 11/08/17 14:00 11/08/17 14:30 Temperature Pulse Rate 58 L 58 L 57 L Respiratory Rate 20 20 20 Blood Pressure 112/58 L 112/57 L 112/57 L Pulse Oximetry 94 L 94 L 94 L 11/08/17 15:00 11/08/17 15:44 11/08/17 16:00 Temperature 96.4 F L Pulse Rate 56 L 56 L 57 L Respiratory Rate 20 23 26 H Blood Pressure 112/57 L 111/61 106/58 L Pulse Oximetry 94 L 98 95 11/08/17 16:12 11/08/17 16:18 11/08/17 16:20 Temperature Pulse Rate 57 L 57 L Respiratory Rate 48 H 23 Blood Pressure 89/53 L 92/54 L Pulse Oximetry 98 96 94 L 11/08/17 16:30 11/08/17 18:00 11/08/17 19:38 Temperature Pulse Rate 57 L 55 L 54 L Respiratory Rate 20 20 Blood Pressure 95/55 L Pulse Oximetry 93 L 11/08/17 20:00 11/08/17 20:30 11/08/17 20:41 Temperature 97.5 F L Pulse Rate 54 L 54 L Respiratory Rate 20 20 20 Blood Pressure 95/53 L 94/53 L Pulse Oximetry 94 L 94 L 94 L 11/08/17 21:00 11/08/17 21:30 11/08/17 22:00 Temperature Pulse Rate 54 L 56 L 57 L Respiratory Rate 21 20 20 Blood Pressure 93/52 L 97/53 L 97/52 L Pulse Oximetry 94 L 96 94 L 11/08/17 22:30 11/08/17 23:00 11/08/17 23:31 Temperature Pulse Rate 57 L 57 L 57 L Respiratory Rate 20 21 18 Blood Pressure 98/57 L 98/57 L 99/58 L Pulse Oximetry 95 95 94 L 11/09/17 00:00 11/09/17 00:30 11/09/17 00:32 Temperature 98.4 F Pulse Rate 69 69 69 Respiratory Rate 20 20 20 Blood Pressure 102/60 104/59 L Pulse Oximetry 96 97 50 L 11/09/17 01:00 11/09/17 01:30 11/09/17 02:00 Temperature Pulse Rate 68 69 69 Respiratory Rate 20 20 20 Blood Pressure 105/59 L 107/61 109/61 Pulse Oximetry 97 97 97 11/09/17 02:30 11/09/17 03:00 11/09/17 03:30 Temperature Pulse Rate 69 69 70 Respiratory Rate 20 20 21 Blood Pressure 109/63 111/64 112/65 Pulse Oximetry 97 97 96 11/09/17 04:00 11/09/17 04:14 11/09/17 04:30 Temperature 97.7 F Pulse Rate 68 68 69 Respiratory Rate 21 20 22 Blood Pressure 104/62 101/61 Pulse Oximetry 95 95 94 L 11/09/17 05:00 11/09/17 05:30 11/09/17 06:00 Temperature Pulse Rate 71 71 71 Respiratory Rate 22 20 18 Blood Pressure 104/60 109/62 120/60 Pulse Oximetry 95 94 L 94 L 11/09/17 06:30 11/09/17 07:00 11/09/17 07:30 Temperature Pulse Rate 72 71 71 Respiratory Rate 22 20 21 Blood Pressure 122/65 121/66 118/65 Pulse Oximetry 97 97 97 11/09/17 08:00 11/09/17 08:05 11/09/17 08:15 Temperature 97.7 F Pulse Rate 71 70 70 Respiratory Rate 23 21 17 Blood Pressure 112/63 115/60 Pulse Oximetry 95 95 95 11/09/17 10:00 Temperature Pulse Rate 69 Respiratory Rate Blood Pressure Pulse Oximetry Intake & Output 11/08/17 11/09/17 11/09/17 18:59 06:59 18:59 Intake Total 1091 / 1091 900 / 900 400 / 400 Output Total 0 / 0 Balance 1091 / 1091 900 / 900 400 / 400 Weight 136.5 kg Intake: IV 1000 / 1000 900 / 900 400 / 400 Precedex Inj 1,000 MCG In NS 500 / 500 500 / 500 Inj 240 ML @ 0.2 MCG/KG/HR 7 mls/hr IV.CONT TITRATE PRN Rx#: [id number] Diprivan 1000 mg/100 ml Inj 1, 500 / 500 400 / 400 200 / 200 000 mg In 100 ml @ 5 MCG/KG/MIN 3.81 mls/hr IV.CONT TITRATE PRN Rx#:[id number] Flexbumin 25% Inj 100 ML @ 60 200 / 200 mls/hr IV.SIG WITH DIALYSIS PRN Rx#:[id number] Tube Feeding 91 / 0 / 0 Output: Urine 0 / 0 Other: Date of Last Bowel Movement 11/08/17 # Bowel Movements 0 Narrative: GENERAL: Intubated and sedated SKIN: Warm and dry. Left IJ vas cath. HEAD: Normocephalic. EYES: No scleral icterus. No injection or drainage. NECK: Supple, trachea midline. No JVD or lymphadenopathy. CARDIOVASCULAR: Regular rate and rhythm without murmurs, gallops, or rubs. RESPIRATORY: Breath sounds decreased bilaterally. No accessory muscle use. Intubated GASTROINTESTINAL: Abdomen soft, non-tender, large. OG tube MUSCULOSKELETAL: No cyanosis, generalized edema. - Urinary Catheter Management Indwelling Urethral Catheter Cath placed during this visit: yes Reason for continuing: Hourly intake/output Insertion date: 10/31/17 Insertion time: 10:30 <Sharon Sultana - Last Filed: 11/09/17 15:05> Vital signs: Vital Signs 11/09/17 00:00 11/09/17 00:30 11/09/17 00:32 Temperature 98.4 F Pulse Rate 69 69 69 Respiratory Rate 20 20 20 Blood Pressure 102/60 104/59 L Pulse Oximetry 96 97 50 L 11/09/17 01:00 11/09/17 01:30 11/09/17 02:00 Temperature Pulse Rate 68 69 69 Respiratory Rate 20 20 20 Blood Pressure 105/59 L 107/61 109/61 Pulse Oximetry 97 97 97 11/09/17 02:30 11/09/17 03:00 11/09/17 03:30 Temperature Pulse Rate 69 69 70 Respiratory Rate 20 20 21 Blood Pressure 109/63 111/64 112/65 Pulse Oximetry 97 97 96 11/09/17 04:00 11/09/17 04:14 11/09/17 04:30 Temperature 97.7 F Pulse Rate 68 68 69 Respiratory Rate 21 20 22 Blood Pressure 104/62 101/61 Pulse Oximetry 95 95 94 L 11/09/17 05:00 11/09/17 05:30 11/09/17 06:00 Temperature Pulse Rate 71 71 71 Respiratory Rate 22 20 18 Blood Pressure 104/60 109/62 120/60 Pulse Oximetry 95 94 L 94 L 11/09/17 06:30 11/09/17 07:00 11/09/17 07:30 Temperature Pulse Rate 72 71 71 Respiratory Rate 22 20 21 Blood Pressure 122/65 121/66 118/65 Pulse Oximetry 97 97 97 11/09/17 08:00 11/09/17 08:05 11/09/17 08:15 Temperature 97.7 F Pulse Rate 71 70 70 Respiratory Rate 23 21 17 Blood Pressure 112/63 115/60 Pulse Oximetry 95 95 95 11/09/17 08:30 11/09/17 08:45 11/09/17 09:00 Temperature Pulse Rate 71 71 69 Respiratory Rate 23 20 18 Blood Pressure 109/61 107/56 L 105/55 L Pulse Oximetry 92 L 92 L 91 L 11/09/17 09:15 11/09/17 09:30 11/09/17 09:45 Temperature Pulse Rate 70 69 70 Respiratory Rate 22 16 18 Blood Pressure 101/59 L 97/56 L 97/55 L Pulse Oximetry 91 L 92 L 92 L 11/09/17 10:00 11/09/17 10:15 11/09/17 10:30 Temperature Pulse Rate 70 69 69 Respiratory Rate 23 22 24 Blood Pressure 94/53 L 93/50 L 92/54 L Pulse Oximetry 90 L 90 L 90 L 11/09/17 10:45 11/09/17 11:00 11/09/17 11:15 Temperature Pulse Rate 69 71 69 Respiratory Rate 20 19 22 Blood Pressure 89/53 L 101/50 L 105/55 L Pulse Oximetry 91 L 92 L 94 L 11/09/17 11:30 11/09/17 12:00 11/09/17 12:17 Temperature 98.3 F Pulse Rate 71 71 72 Respiratory Rate 21 20 20 Blood Pressure 107/59 L 105/58 L Pulse Oximetry 97 98 97 11/09/17 12:30 11/09/17 13:00 11/09/17 13:30 Temperature Pulse Rate 72 73 71 Respiratory Rate 21 22 20 Blood Pressure 105/57 L 106/59 L 110/61 Pulse Oximetry 97 96 96 11/09/17 14:00 11/09/17 14:30 11/09/17 15:00 Temperature Pulse Rate 67 70 67 Respiratory Rate 21 20 20 Blood Pressure 110/57 L 108/61 115/58 L Pulse Oximetry 93 L 93 L 94 L 11/09/17 15:30 11/09/17 16:00 11/09/17 16:30 Temperature 97.1 F L Pulse Rate 66 64 66 Respiratory Rate 20 20 21 Blood Pressure 117/59 L 118/61 120/59 L Pulse Oximetry 94 L 93 L 94 L 11/09/17 16:51 11/09/17 16:54 11/09/17 17:00 Temperature Pulse Rate 64 63 Respiratory Rate 21 21 20 Blood Pressure 117/58 L Pulse Oximetry 96 93 L 11/09/17 17:30 11/09/17 18:00 11/09/17 18:30 Temperature Pulse Rate 64 63 63 Respiratory Rate 21 21 21 Blood Pressure 117/58 L 100/56 L 100/56 L Pulse Oximetry 93 L 93 L 93 L 11/09/17 19:00 11/09/17 19:30 11/09/17 20:00 Temperature 97.7 F Pulse Rate 62 61 61 Respiratory Rate 22 20 20 Blood Pressure 100/55 L 107/57 L 113/58 L Pulse Oximetry 93 L 93 L 94 L 11/09/17 20:30 11/09/17 21:00 11/09/17 21:08 Temperature Pulse Rate 60 60 60 Respiratory Rate 20 20 20 Blood Pressure 114/57 L 114/58 L Pulse Oximetry 93 L 94 L 94 L 11/09/17 21:30 11/09/17 22:00 11/09/17 22:30 Temperature Pulse Rate 60 59 L 59 L Respiratory Rate 20 20 20 Blood Pressure 110/57 L 108/56 L 108/55 L Pulse Oximetry 94 L 94 L 94 L Intake & Output 11/09/17 11/09/17 11/10/17 06:59 18:59 06:59 Intake Total 900 / 900 1105 / 1105 450 / 450 Output Total 0 / 0 7600 / 7600 Balance 900 / 900 -6495 / -6495 450 / 450 Weight 136.5 kg Intake: IV 900 / 900 1050 / 1050 450 / 450 Precedex Inj 1,000 MCG In NS 500 / 500 250 / 250 250 / 250 Inj 240 ML @ 0.2 MCG/KG/HR 7 mls/hr IV.CONT TITRATE PRN Rx#: [id number] Diprivan 1000 mg/100 ml Inj 1, 400 / 400 500 / 500 200 / 200 000 mg In 100 ml @ 5 MCG/KG/MIN 3.81 mls/hr IV.CONT TITRATE PRN Rx#:[id number] Flexbumin 25% Inj 100 ML @ 60 200 / 200 mls/hr IV.SIG WITH DIALYSIS PRN Rx#:[id number] Ancef Inj 1,000 MG In NS Inj 100 / 100 100 ML @ 200 mls/hr IV.SIG Q24H AMADEO Rx#:[id number] Tube Feeding 0 / 0 55 / 55 Output: Urine 0 / 0 0 / 0 Hemodialysis Amount 7600 / 7600 Other: Date of Last Bowel Movement 11/09/17 # Bowel Movements 0 # Incontinent Bowel Movements 1 - Urinary Catheter Management Indwelling Urethral Catheter Cath placed during this visit: no <Crystal Valadez - Last Filed: 11/09/17 23:43> Assessment and Plan - Assessment (1) Acute kidney injury Code(s): N17.9 - Acute kidney failure, unspecified Status: Acute Plan: Acute kidney injury with a creatinine initially at 1.33 and at day of consult 2.89 NANETTE most likely ATN from hypotension possible vancomycin toxicity with vancomycin level of 30.9. No baseline creatinine available. CT of abdomen with unremarkable kidneys. Urine negative for proteinuria Creatinine 10.8 Anuric Hyperphosphatemia 9.2, on PhosLo Monitor strict I+O Avoid IVF Avoid nephrotoxins including aminoglycosides and IV contrast Continue to monitor urinary output, BMP, and watch for renal recovery. Seen during hemodialysis today, 2 K bath, plan to remove 4 liters <Sharon Sultana - Last Filed: 11/09/17 15:05> - Assessment (1) Acute kidney injury Code(s): N17.9 - Acute kidney failure, unspecified Status: Acute - Attending Attestation Patient seen and examined, agree with above. Avoid Nephrotoxins, follow the urine out put and BMP. <Crystal Valadez - Last Filed: 11/09/17 23:43>
--- NOTE | 2017-11-09 10:39 | P.CONPAL ---
Consult Service: Palliative Care Requesting Physician: Dusty Oh Reason for Consult: a. To assist with evaluation and management of symptoms including: dyspnea, pain, edema, constipation b. To assist medical decision maker(s) with: better understanding of current medical conditions; weighing benefits/burdens of medical treatment options; making medical treatment decisions. Primary Care Provider: UNKNOWN History of Present Illness History of Present Illness: This is a 52 yo male with hx ETOH dependence who presented to the ER 10/30 for fevers and AMS. His found found him in his hotel room wth bruises, dried blood on face adn toes. Pt had been binge drinking. On arrival pt complained of back pain, feeling shaky, thirst. He was tachycardic and noted to have abrasions and swelling to both feet, dried blood in his mouth and nose. WBC was 23.5, PLT 76, INR 1.9, Tbil 5.4, AST 174, ALP 269, ALBUMIN 2.6. CXR showing basilar airspace disease right > left. CT angiogram showed PNA right lung. CT abd showed mild colitis, enlarged fatty liver. CT brain neg. Admitted binge drinking 3 times weekly. he was given ativan in ER. Subsequently pt developed respiratory distress and stridor and was intubated. * 10/31 GI consulted for ETOH, diarrhea - poss infectious colitis; DF 47 but steroids and pentoxifylline not options at this time, nor is colonoscopy * 10/31 abnormal EEG showing background slowing, consistent with encephalopathy * 10/31 ID consulted for bacteremia, likely PNA; podiatry consulted for bilat toe ulcerations, cellulitis * 11/01 worsening renal function, decreasing urine output, nephrology consulted * 11/02 Echo showing EF 65-70%. Off pressors. worsening renal function and UOP. has left IJ vascath placement * 11/03 now on HD. Neurosurgery consulted for disk protrusion seen on imaging, no evidence discitis, pt is not surgical candidate * 11/04 continued worsening kidney function, worsening thrombocytopenia * 11/05 CPAP trials, vent weaning underway. not tolerating TF, developing ileus * 11/08 CT shows ileus, consolidation bilat lung bases, small effusions. CXR shows worsening airspace dz left lung Dual visit with RAJ Lei. Pt sedated on vent. He is jaundiced, just had HD. Abd distended, semifirm, bowel sounds very hypoactive. Apparently he vomited TF yesterday. He is unresponsive. WBC trending up, 24.1 today. PLT 66. INR 1.5. Creatinine up to 10.08. Tbil 9.9. Elevated lipase 2245. He will need tracheostomy if goals are aggressive, per CCM. Pending neostigmine admin. Function/Cognitive Trajectory: He was living at home alone prior to this hospitalization. Was prone intermittent etoh binges. Otherwise he was w/o cognitive deficit and he was independent in his ADLs. Review of Systems unobtainable due to endotracheal tube, unobtainable due to mental status (ltd ROS obtained to best of my ability from chart, d/w RN & family) Constitutional: Reports fever(s) Ears, Nose, Mouth, and Throat: Reports nosebleed Skin/Breast: Reports yellowing of the skin Neurologic: Reports abnormal walking, Reports tremor(s) Hematologic/Lymphatic: Reports easy bleeding PMFSH - History History Provided By: Patient, Family Member, Medical Record - Medical History Medical History: Medical History (Last Reviewed 11/08/17 @ 09:16 by Kale Ramey) EtOH dependence - Surgical History Surgical History: Surgical History (Last Reviewed 11/08/17 @ 09:16 by Kale Ramey) No pertinent past surgical history - Family History Family History: Family History (Last Reviewed 11/03/17 @ 18:42 by Filippo King MD) Uncle EtOH dependence Mother Breast cancer Father Prostate cancer Leukemia - Tobacco History Tobacco Use In Past 30 Days: Yes Smoking Status: Current every day smoker (Per family he NEVER smoked) Tobacco Type: Smokeless Tobacco - Alcohol History How Often Do You Have a Drink Containing Alcohol: 4 or more times a week - Substance Use History Substance History: Active Abuse - Substance Use Type Alcohol Status: Active Route Used: By Mouth - Travel History Recent Travel in the [place] Within the Last 8 Weeks: No Recent Travel Out of the Country Within the Last 8 Weeks: No - Immunization History Tetanus Immunization: Unsure Hx Influenza Vaccine This Season: No Medications and Allergies Active Medications: Active Medications Acetaminophen (Tylenol Liq) 650 mg PO Q8H PRN PRN Reason: FEVER Last Admin: 11/01/17 10:18 Dose: 650 mg Acetaminophen (Tylenol) 650 mg PO UNSCH PRN PRN Reason: SEE LABEL COMMENTS Albuterol (Albuterol Neb (Prn)) 2.5 mg NEB Q2HR NEB PRN PRN Reason: DYSPNEA Last Admin: 11/06/17 03:54 Dose: 2.5 mg Albuterol (Duoneb Neb ([place])) 1 ampul NEB Q4HR NEB [facility] Last Admin: 11/09/17 08:10 Dose: 1 ampul Artificial Tears (Genteal Severe Dry Eye Relief 0.3% Opth Gel) 1 drops EACH EYE BID [facility] Last Admin: 11/09/17 08:53 Dose: 1 drops Bisacodyl (Dulcolax Supp) 10 mg RECTAL DAILY PRN PRN Reason: SEVERE CONSITIPATION Calcium Acetate (Phoslo) 1,334 mg PO TID [facility] Last Admin: 11/09/17 08:54 Dose: Not Given Chlorhexidine Gluconate (Peridex 0.12% Oral Kit) 15 ml OROPHARYNG BID@0800, 2000 [facility] Last Admin: 11/09/17 07:33 Dose: 15 ml Clonidine HCl (Catapres) 0.1 mg PO UNSCH PRN PRN Reason: SEE LABEL COMMENTS Dextrose (D50w Vial) 50 ml IV.PUSH UNSCH PRN PRN Reason: PER HYPOGLYCEMIA PROTOCOL Diphenhydramine HCl (Benadryl) 25 mg PO UNSCH PRN PRN Reason: SEE LABEL COMMENTS Flumazenil (Romazecon Inj) 0.2 mg IV.PUSH Q1M PRN PRN Reason: OVERSEDATION Gelatin (Gelfoam 12 Mm/7 Mm Topical) 1 foam TOPICAL UNSCH PRN PRN Reason: help stop bleeding from site Gentamicin Sulfate (Gentamicin Inj) 20 mg OTHER WITH DIALYSIS PRN PRN Reason: Dwell Gentamycin Lock Last Admin: 11/09/17 08:36 Dose: 20 mg Glucagon (Glucagon Inj) 1 mg OTHER PRN PRN PRN Reason: for Hypoglycemia Protocol Heparin Sodium (Porcine) (Heparin Inj) 8,000 units OTHER WITH DIALYSIS PRN PRN Reason: for machine prime Heparin Sodium (Porcine) (Heparin Inj) 0 units OTHER WITH DIALYSIS PRN PRN Reason: Dwell Heparin to Fill Catheter Last Admin: 11/09/17 08:37 Dose: 2,000 units Hydrocortisone Sodium Succinate (Solucortef Inj) 25 mg IV.PUSH Q12H [facility] Stop: 11/10/17 10:59 Last Admin: 11/08/17 23:16 Dose: 25 mg Sodium Chloride (Ns Inj) 1,000 mls @ 0 mls/hr IV.SIG .Q0M [place] Last Infusion: 10/30/17 19:36 Dose: Infused Sodium Chloride (Ns Inj) 1,000 mls @ 0 mls/hr IV.SIG .Q0M [place] Last Infusion: 10/30/17 21:32 Dose: Infused Propofol (Diprivan 1000 Mg/100 Ml Inj) 1,000 mg in 100 mls @ 3.81 mls/hr IV.CONT TITRATE PRN; Protocol PRN Reason: Per Protocol Last Admin: 11/09/17 09:47 Dose: 50 mcg/kg/min, 38.1 mls/hr Albumin Human (Flexbumin 25% Inj) 100 mls @ 60 mls/hr IV.SIG WITH DIALYSIS PRN PRN Reason: hypotension / volume replace Last Infusion: 11/09/17 09:21 Dose: Infused Sodium Chloride (Ns Inj) 1,000 mls @ 0 mls/hr OTHER .Q0M PRN PRN Reason: for prime and rinse back Sodium Chloride (Ns Inj) 1,000 mls @ 200 mls/hr OTHER .Q5H PRN PRN Reason: for dialyzer flush PRN Sodium Chloride (Ns Inj) 1,000 mls @ 0 mls/hr IV.CONT .Q0M PRN PRN Reason: hypotension / volume replace Dexmedetomidine HCl 1,000 mcg/ (Sodium Chloride) 250 mls @ 7 mls/hr IV.CONT TITRATE PRN; Protocol PRN Reason: Per Protocol Last Admin: 11/08/17 23:44 Dose: 1 mcg/kg/hr, 35 mls/hr Cefazolin Sodium 1,000 mg/ (Sodium Chloride) 100 mls @ 200 mls/hr IV.SIG Q24H [place] Last Admin: 11/08/17 12:29 Dose: 200 mls/hr Insulin Aspart (Novolog Insulin Correctional Sugar Inj) 0 unit SQ Q6HR [place]; Protocol Last Admin: 11/09/17 05:11 Dose: Not Given Lactulose (Lactulose Liq) 30 ml PO DAILY PRN PRN Reason: SEVERE CONSITIPATION Lactulose (Lactulose Liq) 30 ml PO QID [facility] Last Admin: 11/09/17 08:53 Dose: 30 ml Lansoprazole (Prevacid Solutab) 30 mg NG/OG DAILY [facility] Last Admin: 11/09/17 08:53 Dose: 30 mg Mannitol (Mannitol Inj) 12.5 gm IV.PUSH UNSCH PRN PRN Reason: hypotension / volume replace Last Admin: 11/09/17 08:36 Dose: 12.5 gm Metoclopramide HCl (Reglan Inj) 5 mg IV.SIG Q8H [facility] Last Admin: 11/09/17 08:53 Dose: 5 mg Mupirocin (Bactroban 2% Nasal Oint) 1 applicatio EACH NARE BID [facility] Last Admin: 11/09/17 08:53 Dose: Not Given Nitroglycerin (Nitrostat Sl) 0.4 mg SL Q5M PRN PRN Reason: CHEST PAIN Ondansetron HCl (Zofran Inj) 4 mg IV.PUSH UNSCH PRN PRN Reason: WITH DIALYSIS Polyethylene Glycol (Miralax) 17 gm PO BID [facility] Last Admin: 11/09/17 08:53 Dose: 17 gm Rifaximin (Xifaxan) 550 mg PO Q12HR [facility] Last Admin: 11/09/17 08:53 Dose: 550 mg Senna/Docusate Sodium (Leatha-Colace) 1 tab PO BID [facility] Last Admin: 11/09/17 08:52 Dose: 1 tab Sennosides (Senokot) 17.2 mg PO Q12H PRN PRN Reason: Moderate Constipation Sodium Chloride (Ns Flush) 2 ml IV.FLUSH BID [facility] Last Admin: 11/09/17 08:54 Dose: 2 ml Sodium Chloride (Ns Flush) 2 ml IV.FLUSH PRN PRN PRN Reason: FLUSH AFTER USING IV ACCESS Sodium Chloride (Ns Flush) 5 ml IV.FLUSH UNSCH PRN PRN Reason: flush each lumen during HD Allergies Allergy/AdvReac Type Severity Reaction Status Date / Time No Known Allergies Allergy Unverified 10/30/17 17:35 Home Medications Medication Instructions Recorded Confirmed Type No Known Home Medications 10/30/17 10/30/17 History Advance Directives Living Will: No Healthcare Surrogate: No Power of Maintenance Mgr: No Ethical and Legal Issues: Pt is not capacitated to make medical decisions. It is unlikely he will regain that capacity. He is unmarried and has no children. Per [place] statute proxy medical decisionmaking falls to his parents, who seem to be working together. Physical Exam Vital Signs: Vital Signs - 24 hr 11/08/17 10:00 11/08/17 10:30 11/08/17 11:00 Temperature Pulse Rate 59 L 58 L 58 L Respiratory Rate 20 20 20 Blood Pressure 100/58 L 100/58 L 100/55 L Pulse Oximetry 94 L 94 L 94 L 11/08/17 11:31 11/08/17 11:52 11/08/17 12:00 Temperature Pulse Rate 59 L 57 L 57 L Respiratory Rate 20 20 20 Blood Pressure 104/62 94/53 L Pulse Oximetry 92 L 94 L 94 L 11/08/17 12:30 11/08/17 13:00 11/08/17 13:30 Temperature Pulse Rate 58 L 58 L 58 L Respiratory Rate 20 20 20 Blood Pressure 99/56 L 109/57 L 112/58 L Pulse Oximetry 94 L 94 L 94 L 11/08/17 14:00 11/08/17 14:30 11/08/17 15:00 Temperature Pulse Rate 58 L 57 L 56 L Respiratory Rate 20 20 20 Blood Pressure 112/57 L 112/57 L 112/57 L Pulse Oximetry 94 L 94 L 94 L 11/08/17 15:44 11/08/17 16:00 11/08/17 16:12 Temperature 96.4 F L Pulse Rate 56 L 57 L 57 L Respiratory Rate 23 26 H 48 H Blood Pressure 111/61 106/58 L 89/53 L Pulse Oximetry 98 95 98 11/08/17 16:18 11/08/17 16:20 11/08/17 16:30 Temperature Pulse Rate 57 L 57 L Respiratory Rate 23 20 Blood Pressure 92/54 L 95/55 L Pulse Oximetry 96 94 L 93 L 11/08/17 18:00 11/08/17 19:38 11/08/17 20:00 Temperature 97.5 F L Pulse Rate 55 L 54 L 54 L Respiratory Rate 20 20 Blood Pressure 95/53 L Pulse Oximetry 94 L 11/08/17 20:30 11/08/17 20:41 11/08/17 21:00 Temperature Pulse Rate 54 L 54 L Respiratory Rate 20 20 21 Blood Pressure 94/53 L 93/52 L Pulse Oximetry 94 L 94 L 94 L 11/08/17 21:30 11/08/17 22:00 11/08/17 22:30 Temperature Pulse Rate 56 L 57 L 57 L Respiratory Rate 20 20 20 Blood Pressure 97/53 L 97/52 L 98/57 L Pulse Oximetry 96 94 L 95 11/08/17 23:00 11/08/17 23:31 11/09/17 00:00 Temperature 98.4 F Pulse Rate 57 L 57 L 69 Respiratory Rate 21 18 20 Blood Pressure 98/57 L 99/58 L 102/60 Pulse Oximetry 95 94 L 96 11/09/17 00:30 11/09/17 00:32 11/09/17 01:00 Temperature Pulse Rate 69 69 68 Respiratory Rate 20 20 20 Blood Pressure 104/59 L 105/59 L Pulse Oximetry 97 50 L 97 11/09/17 01:30 11/09/17 02:00 11/09/17 02:30 Temperature Pulse Rate 69 69 69 Respiratory Rate 20 20 20 Blood Pressure 107/61 109/61 109/63 Pulse Oximetry 97 97 97 11/09/17 03:00 11/09/17 03:30 11/09/17 04:00 Temperature 97.7 F Pulse Rate 69 70 68 Respiratory Rate 20 21 21 Blood Pressure 111/64 112/65 104/62 Pulse Oximetry 97 96 95 11/09/17 04:14 11/09/17 04:30 11/09/17 05:00 Temperature Pulse Rate 68 69 71 Respiratory Rate 20 22 22 Blood Pressure 101/61 104/60 Pulse Oximetry 95 94 L 95 11/09/17 05:30 11/09/17 06:00 11/09/17 06:30 Temperature Pulse Rate 71 71 72 Respiratory Rate 20 18 22 Blood Pressure 109/62 120/60 122/65 Pulse Oximetry 94 L 94 L 97 11/09/17 07:00 11/09/17 07:30 11/09/17 08:00 Temperature 97.7 F Pulse Rate 71 71 71 Respiratory Rate 20 21 23 Blood Pressure 121/66 118/65 112/63 Pulse Oximetry 97 97 95 11/09/17 08:05 11/09/17 08:15 Temperature Pulse Rate 70 70 Respiratory Rate 21 17 Blood Pressure 115/60 Pulse Oximetry 95 95 I&O: Intake & Output 11/07/17 11/08/17 11/09/17 11/10/17 06:59 06:59 06:59 06:59 Intake Total 1550 / 1550 1850 / 1850 1741 / 1741 400 / 400 Output Total 50 / 50 2540 / 2540 0 / 0 Balance 1500 / 1500 -690 / -690 1741 / 1741 400 / 400 Weight 134 kg 132 kg 136.5 kg Physical Exam: CONSTITUTIONAL/GENERAL: appears jaundiced, bloated, ill, sedated and intubated on vent TUBES/LINES/DRAINS: vascath, anderson, ET tube SKIN: +jaundice +scar anterior left solomon. Skin temperature appropriate. Not diaphoretic. HEAD: Atraumatic. Normocephalic. EYES: PERRL. Extraocular motions intact. +icterus. few small abrasions on face. eyes glassy ENT: unable to assess hearing, sedated on vent. Nose without bleeding or purulent drainage. throat exam limited by ET tube. NECK: Trachea midline. CARDIOVASCULAR: RRR without murmurs, gallops, or rubs. No JVD. Peripheral pulses symmetric. RESPIRATORY/CHEST: Symmetric, unlabored respirations. Clear to auscultation. Diminished breath sounds. No wheezes, rales, or rhonchi. GASTROINTESTINAL: Abdomen distended, semifirm. Bowel sounds hypoactive GENITOURINARY: Without palpable bladder distension. Anderson catheter in place. MUSCULOSKELETAL: Extremities without clubbing, cyanosis. + generalized edema No mottling or clubbing. NEUROLOGICAL: sedated on vent, unresponsive PSYCHIATRIC: unable to assess, sedated on vent Diagnostic Tests Laboratory: Laboratory Results - last 72 hr 11/06/17 11/06/17 11/06/17 10:45 11:39 18:31 WBC RBC Hgb Hct MCV MCH MCHC RDW Plt Count MPV Prelim Diff (Auto) Neut % (Auto) Lymph % (Auto) [place] % (Auto) Eos % (Auto) Baso % (Auto) Neut # (Auto) Lymph # (Auto) [place] # (Auto) Eos # (Auto) Baso # (Auto) WBC Differential Seg Neuts % (Manual) Band Neuts % (Manual) Lymphocytes % (Manual) Monocytes % (Manual) Eosinophils % (Manual) Metamyelocytes % (Man) Myelocytes % (Man) Promyelocytes % (Man) Abs Neuts (Manual) Differential Comment Toxic Granulation Toxic Vacuolation Platelet Estimate Platelet Morphology PT INR APTT Fibrinogen Puncture Site Left radial Patient Temperature 98.6 O2 Saturation 90 ABG pH 7.49 H ABG pCO2 30 L ABG pO2 67 ABG HCO3 22 ABG O2 Content 16.1 ABG Base Excess -0.8 ABG Methemoglobin 1.6 Jamar Test Present Hemoglobin 12.7 Carboxyhemoglobin 0.8 O2 Delivery Device Ventilator Vent Setting Inspired O2 45 Critical Value No Sodium Potassium Chloride Carbon Dioxide Anion Gap BUN Creatinine Estimated GFR POC Glucose 137 H 145 H Random Glucose Lactic Acid Calcium Phosphorus Magnesium Total Bilirubin Direct Bilirubin Indirect Bilirubin AST ALT Alkaline Phosphatase Ammonia Total Protein Albumin Amylase Lipase 11/06/17 11/06/17 11/07/17 19:47 23:38 03:03 WBC RBC Hgb Hct MCV MCH MCHC RDW Plt Count MPV Prelim Diff (Auto) Neut % (Auto) Lymph % (Auto) [place] % (Auto) Eos % (Auto) Baso % (Auto) Neut # (Auto) Lymph # (Auto) [place] # (Auto) Eos # (Auto) Baso # (Auto) WBC Differential Seg Neuts % (Manual) Band Neuts % (Manual) Lymphocytes % (Manual) Monocytes % (Manual) Eosinophils % (Manual) Metamyelocytes % (Man) Myelocytes % (Man) Promyelocytes % (Man) Abs Neuts (Manual) Differential Comment Toxic Granulation Toxic Vacuolation Platelet Estimate Platelet Morphology PT INR APTT Fibrinogen Puncture Site Patient Temperature O2 Saturation ABG pH ABG pCO2 ABG pO2 ABG HCO3 ABG O2 Content ABG Base Excess ABG Methemoglobin Jamar Test Hemoglobin Carboxyhemoglobin O2 Delivery Device Vent Setting Inspired O2 Critical Value Sodium Potassium Chloride Carbon Dioxide Anion Gap BUN Creatinine Estimated GFR POC Glucose 149 H 151 H 180 H Random Glucose Lactic Acid Calcium Phosphorus Magnesium Total Bilirubin Direct Bilirubin Indirect Bilirubin AST ALT Alkaline Phosphatase Ammonia Total Protein Albumin Amylase Lipase 11/07/17 11/07/17 11/07/17 03:25 03:25 03:25 WBC 14.8 H RBC 3.61 L Hgb 12.4 L Hct 36.2 L MCV 100.3 H MCH 34.4 H MCHC 34.3 RDW 14.9 Plt Count 80 L MPV 10.2 Prelim Diff (Auto) Slide review pending Neut % (Auto) 85.5 H Lymph % (Auto) 7.1 L [place] % (Auto) 6.7 Eos % (Auto) 0.5 Baso % (Auto) 0.2 Neut # (Auto) 12.7 H Lymph # (Auto) 1.0 [place] # (Auto) 1.0 H Eos # (Auto) 0.1 Baso # (Auto) 0.0 WBC Differential Manual diff final Seg Neuts % (Manual) 77 H Band Neuts % (Manual) 5 Lymphocytes % (Manual) 4 L Monocytes % (Manual) 6 Eosinophils % (Manual) Metamyelocytes % (Man) 4 H Myelocytes % (Man) 2 H Promyelocytes % (Man) 2 H Abs Neuts (Manual) 13.3 H Differential Comment . Toxic Granulation 1+ H Toxic Vacuolation Present H Platelet Estimate Low L Platelet Morphology Enlarged H PT INR APTT Fibrinogen Puncture Site Patient Temperature O2 Saturation ABG pH ABG pCO2 ABG pO2 ABG HCO3 ABG O2 Content ABG Base Excess ABG Methemoglobin Jamar Test Hemoglobin Carboxyhemoglobin O2 Delivery Device Vent Setting Inspired O2 Critical Value Sodium 140 140 Potassium 5.2 H 5.3 H Chloride 101 101 Carbon Dioxide 22.1 22.3 Anion Gap 17 H 17 H BUN 108 H 107 H Creatinine 9.65 H 9.79 H Estimated GFR 6 L 6 L POC Glucose Random Glucose 151 H 151 H Lactic Acid Calcium 7.7 L 7.7 L Phosphorus 7.8 H Magnesium Total Bilirubin 12.9 H Direct Bilirubin Indirect Bilirubin AST 154 H ALT 83 H Alkaline Phosphatase 162 H Ammonia Total Protein 7.1 Albumin 1.7 L 1.7 L Amylase Lipase 11/07/17 11/07/17 11/07/17 05:46 12:45 17:37 WBC RBC Hgb Hct MCV MCH MCHC RDW Plt Count MPV Prelim Diff (Auto) Neut % (Auto) Lymph % (Auto) [place] % (Auto) Eos % (Auto) Baso % (Auto) Neut # (Auto) Lymph # (Auto) [place] # (Auto) Eos # (Auto) Baso # (Auto) WBC Differential Seg Neuts % (Manual) Band Neuts % (Manual) Lymphocytes % (Manual) Monocytes % (Manual) Eosinophils % (Manual) Metamyelocytes % (Man) Myelocytes % (Man) Promyelocytes % (Man) Abs Neuts (Manual) Differential Comment Toxic Granulation Toxic Vacuolation Platelet Estimate Platelet Morphology PT INR APTT Fibrinogen Puncture Site Patient Temperature O2 Saturation ABG pH ABG pCO2 ABG pO2 ABG HCO3 ABG O2 Content ABG Base Excess ABG Methemoglobin Jamar Test Hemoglobin Carboxyhemoglobin O2 Delivery Device Vent Setting Inspired O2 Critical Value Sodium Potassium 4.5 D Chloride Carbon Dioxide Anion Gap BUN Creatinine Estimated GFR POC Glucose 146 H 168 H Random Glucose Lactic Acid Calcium Phosphorus Magnesium Total Bilirubin Direct Bilirubin Indirect Bilirubin AST ALT Alkaline Phosphatase Ammonia Total Protein Albumin Amylase Lipase 11/07/17 11/08/17 11/08/17 23:35 05:24 05:24 WBC 20.0 H RBC 3.54 L Hgb 12.3 L Hct 36.3 L MCV 102.6 H MCH 34.7 H MCHC 33.8 RDW 15.3 Plt Count 70 L MPV 10.6 Prelim Diff (Auto) Slide review pending Neut % (Auto) 86.5 H Lymph % (Auto) 6.2 L [place] % (Auto) 6.6 Eos % (Auto) 0.4 Baso % (Auto) 0.3 Neut # (Auto) 17.3 H Lymph # (Auto) 1.3 [place] # (Auto) 1.3 H Eos # (Auto) 0.1 Baso # (Auto) 0.1 WBC Differential Manual diff final Seg Neuts % (Manual) 80 H Band Neuts % (Manual) 3 Lymphocytes % (Manual) 4 L Monocytes % (Manual) 10 H Eosinophils % (Manual) Metamyelocytes % (Man) 2 H Myelocytes % (Man) 1 H Promyelocytes % (Man) Abs Neuts (Manual) 17.2 H Differential Comment . Toxic Granulation 1+ H Toxic Vacuolation Present H Platelet Estimate Low L Platelet Morphology Enlarged H PT INR APTT Fibrinogen Puncture Site Patient Temperature O2 Saturation ABG pH ABG pCO2 ABG pO2 ABG HCO3 ABG O2 Content ABG Base Excess ABG Methemoglobin Jamar Test Hemoglobin Carboxyhemoglobin O2 Delivery Device Vent Setting Inspired O2 Critical Value Sodium 140 Potassium 5.1 Chloride 101 Carbon Dioxide 24.0 Anion Gap 15 BUN 96 H Creatinine 8.92 H Estimated GFR 6 L POC Glucose 162 H Random Glucose 149 H Lactic Acid Calcium 7.8 L Phosphorus 9.2 H D Magnesium 3.1 H Total Bilirubin 11.3 H Direct Bilirubin 9.5 H Indirect Bilirubin 1.8 H AST 134 H ALT 82 H Alkaline Phosphatase 158 H Ammonia Total Protein 7.3 Albumin 2.3 L D Amylase Lipase 11/08/17 11/08/17 11/08/17 05:24 05:24 05:24 WBC RBC Hgb Hct MCV MCH MCHC RDW Plt Count MPV Prelim Diff (Auto) Neut % (Auto) Lymph % (Auto) [place] % (Auto) Eos % (Auto) Baso % (Auto) Neut # (Auto) Lymph # (Auto) [place] # (Auto) Eos # (Auto) Baso # (Auto) WBC Differential Seg Neuts % (Manual) Band Neuts % (Manual) Lymphocytes % (Manual) Monocytes % (Manual) Eosinophils % (Manual) Metamyelocytes % (Man) Myelocytes % (Man) Promyelocytes % (Man) Abs Neuts (Manual) Differential Comment Toxic Granulation Toxic Vacuolation Platelet Estimate Platelet Morphology PT 16.1 H INR 1.6 APTT 32.9 H Fibrinogen Puncture Site Patient Temperature O2 Saturation ABG pH ABG pCO2 ABG pO2 ABG HCO3 ABG O2 Content ABG Base Excess ABG Methemoglobin Jamar Test Hemoglobin Carboxyhemoglobin O2 Delivery Device Vent Setting Inspired O2 Critical Value Sodium Potassium Chloride Carbon Dioxide Anion Gap BUN Creatinine Estimated GFR POC Glucose Random Glucose Lactic Acid 1.5 Calcium Phosphorus Magnesium Total Bilirubin Direct Bilirubin Indirect Bilirubin AST ALT Alkaline Phosphatase Ammonia 11 Total Protein Albumin Amylase Lipase 11/08/17 11/08/17 11/08/17 05:37 11:23 12:11 WBC RBC Hgb Hct MCV MCH MCHC RDW Plt Count MPV Prelim Diff (Auto) Neut % (Auto) Lymph % (Auto) [place] % (Auto) Eos % (Auto) Baso % (Auto) Neut # (Auto) Lymph # (Auto) [place] # (Auto) Eos # (Auto) Baso # (Auto) WBC Differential Seg Neuts % (Manual) Band Neuts % (Manual) Lymphocytes % (Manual) Monocytes % (Manual) Eosinophils % (Manual) Metamyelocytes % (Man) Myelocytes % (Man) Promyelocytes % (Man) Abs Neuts (Manual) Differential Comment Toxic Granulation Toxic Vacuolation Platelet Estimate Platelet Morphology PT INR APTT Fibrinogen Puncture Site Left radial Patient Temperature 98.6 O2 Saturation 90 ABG pH 7.49 H ABG pCO2 25 L ABG pO2 63 ABG HCO3 19 L ABG O2 Content 15.0 ABG Base Excess -4.2 L ABG Methemoglobin 1.5 Jamar Test Present Hemoglobin 11.9 L Carboxyhemoglobin 0.7 O2 Delivery Device Ventilator Vent Setting 20/[id number] Inspired O2 50 Critical Value No Sodium Potassium Chloride Carbon Dioxide Anion Gap BUN Creatinine Estimated GFR POC Glucose 158 H 154 H Random Glucose Lactic Acid Calcium Phosphorus Magnesium Total Bilirubin Direct Bilirubin Indirect Bilirubin AST ALT Alkaline Phosphatase Ammonia Total Protein Albumin Amylase Lipase 11/08/17 11/08/17 11/09/17 17:42 23:15 05:06 WBC RBC Hgb Hct MCV MCH MCHC RDW Plt Count MPV Prelim Diff (Auto) Neut % (Auto) Lymph % (Auto) [place] % (Auto) Eos % (Auto) Baso % (Auto) Neut # (Auto) Lymph # (Auto) [place] # (Auto) Eos # (Auto) Baso # (Auto) WBC Differential Seg Neuts % (Manual) Band Neuts % (Manual) Lymphocytes % (Manual) Monocytes % (Manual) Eosinophils % (Manual) Metamyelocytes % (Man) Myelocytes % (Man) Promyelocytes % (Man) Abs Neuts (Manual) Differential Comment Toxic Granulation Toxic Vacuolation Platelet Estimate Platelet Morphology PT INR APTT Fibrinogen Puncture Site Patient Temperature O2 Saturation ABG pH ABG pCO2 ABG pO2 ABG HCO3 ABG O2 Content ABG Base Excess ABG Methemoglobin Jamar Test Hemoglobin Carboxyhemoglobin O2 Delivery Device Vent Setting Inspired O2 Critical Value Sodium Potassium Chloride Carbon Dioxide Anion Gap BUN Creatinine Estimated GFR POC Glucose 127 H 119 H 137 H Random Glucose Lactic Acid Calcium Phosphorus Magnesium Total Bilirubin Direct Bilirubin Indirect Bilirubin AST ALT Alkaline Phosphatase Ammonia Total Protein Albumin Amylase Lipase 11/09/17 11/09/17 11/09/17 07:57 07:57 07:57 WBC 24.1 H RBC 3.47 L Hgb 12.0 L Hct 34.9 L MCV 100.8 H MCH 34.7 H MCHC 34.5 RDW 15.1 Plt Count 66 L MPV 10.6 Prelim Diff (Auto) Slide review pending Neut % (Auto) 91.4 H Lymph % (Auto) 3.6 L [place] % (Auto) 4.2 Eos % (Auto) 0.4 Baso % (Auto) 0.4 Neut # (Auto) 22.0 H Lymph # (Auto) 0.9 L [place] # (Auto) 1.0 H Eos # (Auto) 0.1 Baso # (Auto) 0.1 WBC Differential Manual diff final Seg Neuts % (Manual) 86 H Band Neuts % (Manual) 4 Lymphocytes % (Manual) 3 L Monocytes % (Manual) 5 Eosinophils % (Manual) 1 Metamyelocytes % (Man) 1 Myelocytes % (Man) Promyelocytes % (Man) Abs Neuts (Manual) 21.9 H Differential Comment . Toxic Granulation 1+ H Toxic Vacuolation Platelet Estimate Low L Platelet Morphology Normal PT 15.4 H INR 1.5 APTT 32.7 H Fibrinogen 187 L Puncture Site Patient Temperature O2 Saturation ABG pH ABG pCO2 ABG pO2 ABG HCO3 ABG O2 Content ABG Base Excess ABG Methemoglobin Jamar Test Hemoglobin Carboxyhemoglobin O2 Delivery Device Vent Setting Inspired O2 Critical Value Sodium 137 Potassium 5.5 H Chloride 100 Carbon Dioxide 18.7 L Anion Gap 18 H BUN 113 H Creatinine 10.08 H* D Estimated GFR 5 L POC Glucose Random Glucose 128 H Lactic Acid Calcium 7.6 L Phosphorus 11.0 H D Magnesium 3.1 H Total Bilirubin 9.9 H Direct Bilirubin Indirect Bilirubin AST 129 H ALT 77 Alkaline Phosphatase 170 H Ammonia Total Protein 7.2 Albumin 2.2 L Amylase 152 H Lipase 2245 H 11/09/17 07:57 WBC RBC Hgb Hct MCV MCH MCHC RDW Plt Count MPV Prelim Diff (Auto) Neut % (Auto) Lymph % (Auto) [place] % (Auto) Eos % (Auto) Baso % (Auto) Neut # (Auto) Lymph # (Auto) [place] # (Auto) Eos # (Auto) Baso # (Auto) WBC Differential Seg Neuts % (Manual) Band Neuts % (Manual) Lymphocytes % (Manual) Monocytes % (Manual) Eosinophils % (Manual) Metamyelocytes % (Man) Myelocytes % (Man) Promyelocytes % (Man) Abs Neuts (Manual) Differential Comment Toxic Granulation Toxic Vacuolation Platelet Estimate Platelet Morphology PT INR APTT Fibrinogen Puncture Site Patient Temperature O2 Saturation ABG pH ABG pCO2 ABG pO2 ABG HCO3 ABG O2 Content ABG Base Excess ABG Methemoglobin Jamar Test Hemoglobin Carboxyhemoglobin O2 Delivery Device Vent Setting Inspired O2 Critical Value Sodium Potassium Chloride Carbon Dioxide Anion Gap BUN Creatinine Estimated GFR POC Glucose Random Glucose Lactic Acid 1.2 Calcium Phosphorus Magnesium Total Bilirubin Direct Bilirubin Indirect Bilirubin AST ALT Alkaline Phosphatase Ammonia Total Protein Albumin Amylase Lipase Result Diagrams: 11/09/17 07:57 11/09/17 07:57 Microbiology: Microbiology 11/04/17 03:45 Gram Stain - Final Sputum - Endotracheal Sputum Culture - Final No growth in 48 hours 11/01/17 04:40 Aerobic Blood Culture - Final Blood - Peripheral No growth in 5 days Anaerobic Blood Culture - Final No growth in 5 days 11/01/17 06:39 Aerobic Blood Culture - Final Blood - Peripheral No growth in 5 days Anaerobic Blood Culture - Final QNS - See aerobic report. Imaging: ITS Impressions Head CT 10/30/17 17:35 CONCLUSION: 1. No acute intracranial abnormalities. . Chest CTA 10/30/17 19:02 CONCLUSION: 1. Suboptimal bolus but no evidence for central pulmonary emboli. 2. Patchy airspace consolidation right lung base most characteristic of pneumonia. No significant effusion. Foot X-Ray 10/30/17 21:27 CONCLUSION: No acute findings. Moderate degenerative change. Bone spurs posterior calcaneus. Lumbar Spine CT 10/30/17 21:43 CONCLUSION: 1. No acute fracture. 2. 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 3. At L5-S1 there is a small central disc protrusion. Mild bilateral foraminal encroachment. Thoracic Spine CT 10/30/17 21:43 CONCLUSION: 1. Negative for acute traumatic injury to the thoracic spine. Small Schmorl's nodes in the lower thoracic spine. Foot MRI 10/31/17 00:00 CONCLUSION: 1. Lumbar Spine MRI 10/31/17 00:00 CONCLUSION: Extruded disc fragment with a donor site at L4-L5 lying posterior to the L4 vertebral body severe right-sided and moderate left-sided foraminal narrowing. There is no evidence of abscess. Sacrum/Coccyx MRI 10/31/17 00:00 CONCLUSION: 1. Negative MRI of the sacrum Abdomen X-Ray 11/07/17 00:00 CONCLUSION: NG tip in stomach. No free air. Abdomen/Pelvis CT 11/08/17 00:00 CONCLUSION: 1. Nonspecific, nonobstructive bowel gas pattern most consistent with an ileus and/or gastroenteritis. There is a small amount of ascitic fluid. The study was performed without intravenous or oral contrast. 2. Consolidation now noted in both lung bases with small effusions left greater than right. 3. Multiple calcified gallstones again noted. 4. Small gas bubble in the bladder likely due to recent instrumentation. Chest X-Ray 11/09/17 06:00 CONCLUSION: Stable exam. Procedures: 10/31 intubated 10/31 right IJ central line placement 11/02 left IJ vascath placement Patient/Family Conference Present at Family Conference: Father, Mother Family Conference Time: 20 Family Conference Location: Telephone Issues Discussed: Spoke mainly with pt's father, mother was also on phone. * Palliative care role, purpose, approach * Additional medical, psychosocial, and spiritual history * Patients general health, functional status, and cognitive changes in the months leading up to the current hospitalization * family understanding of the current medical problems - they were somewhat confused as it was their perception that pt was "doing better"; pt also asking to speak with a "doctor" * family understanding of prognosis - family with fair insight, difficulty understanding any complex medical concepts * Current medical treatment options and benefits/burdens of those options - pt will need tracheostomy soon. Father verbalized not being ready to make that decisions but understands that it is imminent * briefly touched on Likely scenarios comparing ongoing aggressive care with a transition to comfort measures only * Questions answered to the best of my ability * Palliative care contact information provided Proxy decision maker father had difficulty grasping gravity of pt's illness. He was overwhelmed and not ready to make a decision on tracheostomy but does understand that this decision is coming soon. He prefers to have updates from physicians but was receptive to continued palliative followup. Assessment and Plan - Disease Oriented Problem List (1) Sepsis (2) PNA (pneumonia) (3) Acute kidney injury (4) Alcohol abuse - Symptom Scale (1) Dyspnea 0-10 Scale: Unable to quantify (2) Pain 0-10 Scale: Unable to quantify (3) Edema 0-10 Scale: Unable to quantify Pertinent Non-Medical Issues: Psychosocial: Living at home alone, had a girlfriend. 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 Currently unemployed. Originally from [place]. Has spent some years in [place] and [place]. Has been in [place] for 2 years. Has 1 brother. His parents live in [facility]. Spiritual: no particular affiliation. proxy declines folder seamer visits. Legal:Pt is not capacitated to make medical decisions. It is unlikely he will regain that capacity. He is unmarried and has no children. Per [place] statute proxy medical decisionmaking falls to his parents, who seem to be working together. Ethical issues impacting care: none Important Contacts: Pt's proxy decision makers father and mother: preferred number so they can talk together on speakerphone: [phone] home phone: [phone], Prognosis: THis is a 52 yo male with no significant prior medical hx aside from heavy binge drinking who presented 10/30 with AMS, fevers. Now sedated on vent in [facility] being treated for PNA, cellulitis in toes. He is on HD with worsening renal function and anuria. It is unclear if his renal function will improve. His MELD is 42 and his 90 day mortality is 92%. Multiple organ systems are now affected - he has developed an ileus, coagulopathy, has worsening renal function , liver injury, respiratory failure. He is at risk for further infections, setbacks, complications. His prognosis is poor. Code Status: Full Code Plan: * LEGAL DECISION MAKER - Pt is not capacitated to make medical decisions. It is unlikely he will regain that capacity. He is unmarried and has no children. Per [place] statute proxy medical decision making falls to his parents, who seem to be working together. * CODE STATUS - FULL CODE * GOALS - aggressive for now. Proxy decision maker father had difficulty grasping gravity of pt's illness. He was overwhelmed and not ready to make a decision on tracheostomy but does understand that this decision is coming soon. He prefers to have updates from physicians but was receptive to continued palliative followup. * SYMPTOMS * PAIN - multifactorial, 2/2 back pain ileus, lines and catheters, ET tube. ? pancreatitis? if he develops severe pain, consider dilaudid in light if kidney dysfunction. Caution with apap since he has liver dz. * DYPSNEA - multifactorial, 2/2 PNA, effusion. Developed respiratory distress and stridor soon after admission. now intubated, sedated on vent. On precedex, 38.5 ml/hr, propofol 38.1 ml/hr. madison duonebs. * EDEMA - multifactorial 2/2 IV fluids, poor renal function. albumin 2.2. has liver dz, risk for ascites. concern for HRS. on HD. on replacement albumin * CONSTIPATION - minimal BM in many days. not tolerating TF, vomited yesterday. Ileus, seen on CT. abd distended, semifirm, hypoactive BS on my eval. will need ileus to resolve before he could have PEG tube placed, most likely. on bowel regimen to include Reglan, madison miralax, madison leatha-colace, pending neostigmine shortly. * Family prefers use of number [phone], prefers to speak with physicians * palliative care WAREHOUSE PRODUCTION WORKER & MD will f/u tomorrow for additional update, discussion * d/w RN, d/w CCM * Palliative care will continue to follow during hospital course as condition evolves, to assist patient/decision-maker with understanding of medical conditions, weighing benefits/burdens of treatment options, for clarification of goals of treatment. Additionally will assist with any symptoms of palliative concern Appreciation Thank you for the opportunity to participate in the care of Oscar Lockett. Attestation Attestation: To help prompt me to consider important information that might be impacting today's encounter and assessment, information from prior notes written by myself or my colleagues may have been "brought forward" into today's note. My signature on this note, however, is an attestation that I personally performed the exam, history, and/or decision-making noted today, and, unless otherwise indicated, the interactions with patient, family, and staff as well as the review of records all occurred today. I also attest that the listed assessment and stated plan reflect my best clinical judgment today based on the combination of historical information, prior notes, and today's exam/ interactions. When time spent is documented, it refers only to time spent today by the signer, or if indicated, combined time spent today by collaborating physician/nurse practitioner.
[2017-11-09] MEDS: Hydrocortisone Sod Succinate 100 MG Vial IV.PUSH SCH ×2 (11:41→23:11)
[2017-11-09] MEDS ORDERED: Atropine Inj 1 MG/10 ML Syringe IV.PUSH ONE (12:01)
--- NOTE | 2017-11-09 12:51 | P.PNCC ---
Subjective Subjective Remarks/Hospital Course: 52-year-old male with a past medical history of alcohol dependence who sought medical attention after a friend found him in the hotel room with fever and ill appearance after episode of binge drinking. Patient has multiple bruises and states he has been falling often which he attributes to poor footwear. His primary complaint is pain and tenderness of his sacrum and L4/L5 region. Denies IVDU. Denies CP, SOB, Cough, sputum production, urinary symptoms , abdominal pain, nausea, vomiting, headache, neck pain, neck stiffness. He does report some diarrhea, nonbloody, non melena and difficult to quantify. He says he has "always drank EtOH heavily, but it has been drinking more than usual over the last 2 weeks". He is tremulous, hypertensive, tachycardic with clinical appearance of EtOH withdrawal. ED workup included CT brain which is negative, CT chest with RLL consolidation, CT abd/pelvis with wall thickening c/ w colitis of ascending/transverse colon. WBC 23.5, lactic acid 11.4. In the ED he has received vancomycin, piperacillin/tazobactam, NS 2 L bolus, magnesium sulfate 1 gram IV, Ativan 2 mg IV, Thiamine 100 mg IV, Ofirmev 1 gram IV. 10/31: Remains on norepinephrine drip at 8 mcg/min. Weaning FiO2 and ventilator. Minimal response on the ventilator on propofol and dexmedetomidine drips. MRI of the lumbar spine, sacrum and foot will be performed this afternoon. Noted gram-positive cocci bacteremia. 2D echocardiogram ordered repeat blood cultures today. Currently on vancomycin and piperacillin/ tazobactam. 11/01 Patient is sedated with Diprivan and Fentanyl drips. On Levophed 9 mics. Renal function worse this morning with Cr: 2.89 from 1.95. Afebrile. 11/02 Patient remains intubated and sedated. Renal function continue to decline with Cr: 4.22 from 2.89 with poor UOP. Afebrile. Levophed down 1 jaison. 11/03 Patient remains intubated and sedated on Fentanyl infusion. Afebrile. HD initiated yesterday with removal 2L. Off Levophed. 11/04: Remains intubated sedated encephalopathy. Hemodialysis yesterday and apparently only 1 L was removed creatinine now increased to 5.98. Platelet count 56. Continues to remain oliguric to anuric. 11/05: Remains intubated now sedated with propofol. Tolerating CPAP but not following commands. Lab work is pending today. Precedex will be started to facilitate vent weaning. Continues to have high residuals start Reglan IV. CXR yesterday showed pulmonary edema, will request HD with fluid removal today 11/06 Patient remains intubated and sedated with Precedex and Diprivan infusion. Afebrile. On trickle feeds due to high residuals. s/p HD yesterday with 6L fluid removal. 11/07: No bowel movement times several days. T-max 99.7. Remains on dexmedetomidine at 1 mcg/kg/h and propofol drip at 30 mcg/kg/min. Hemodialysis today 11/08: Afebrile. Remains on dexmedetomidine drip and propofol drip for sedation. -2.5 hemodialysis yesterday. Central line been removed. Small bowel movement yesterday. Will check CT abdomen/pelvis today with oral contrast only. SUBJECTIVE: 11/09: Afebrile. Remains on dexmedetomidine drip and propofol drip. No BM yesterday. Hemodialysis attempt [address] abdomen/pelvis revealed ileus. Will try neostigmine today. Will need tracheostomy. Positive care to help assist with discussions Objective Vital Signs / I&O: Vital Signs 11/08/17 13:00 11/08/17 13:30 11/08/17 14:00 Temperature Pulse Rate 58 L 58 L 58 L Respiratory Rate 20 20 20 Blood Pressure 109/57 L 112/58 L 112/57 L Pulse Oximetry 94 L 94 L 94 L 11/08/17 14:30 11/08/17 15:00 11/08/17 15:44 Temperature Pulse Rate 57 L 56 L 56 L Respiratory Rate 20 20 23 Blood Pressure 112/57 L 112/57 L 111/61 Pulse Oximetry 94 L 94 L 98 11/08/17 16:00 11/08/17 16:12 11/08/17 16:18 Temperature 96.4 F L Pulse Rate 57 L 57 L Respiratory Rate 26 H 48 H Blood Pressure 106/58 L 89/53 L Pulse Oximetry 95 98 96 11/08/17 16:20 11/08/17 16:30 11/08/17 18:00 Temperature Pulse Rate 57 L 57 L 55 L Respiratory Rate 23 20 Blood Pressure 92/54 L 95/55 L Pulse Oximetry 94 L 93 L 11/08/17 19:38 11/08/17 20:00 11/08/17 20:30 Temperature 97.5 F L Pulse Rate 54 L 54 L 54 L Respiratory Rate 20 20 20 Blood Pressure 95/53 L 94/53 L Pulse Oximetry 94 L 94 L 11/08/17 20:41 11/08/17 21:00 11/08/17 21:30 Temperature Pulse Rate 54 L 56 L Respiratory Rate 20 21 20 Blood Pressure 93/52 L 97/53 L Pulse Oximetry 94 L 94 L 96 11/08/17 22:00 11/08/17 22:30 11/08/17 23:00 Temperature Pulse Rate 57 L 57 L 57 L Respiratory Rate 20 20 21 Blood Pressure 97/52 L 98/57 L 98/57 L Pulse Oximetry 94 L 95 95 11/08/17 23:31 11/09/17 00:00 11/09/17 00:30 Temperature 98.4 F Pulse Rate 57 L 69 69 Respiratory Rate 18 20 20 Blood Pressure 99/58 L 102/60 104/59 L Pulse Oximetry 94 L 96 97 11/09/17 00:32 11/09/17 01:00 11/09/17 01:30 Temperature Pulse Rate 69 68 69 Respiratory Rate 20 20 20 Blood Pressure 105/59 L 107/61 Pulse Oximetry 50 L 97 97 11/09/17 02:00 11/09/17 02:30 11/09/17 03:00 Temperature Pulse Rate 69 69 69 Respiratory Rate 20 20 20 Blood Pressure 109/61 109/63 111/64 Pulse Oximetry 97 97 97 11/09/17 03:30 11/09/17 04:00 11/09/17 04:14 Temperature 97.7 F Pulse Rate 70 68 68 Respiratory Rate 21 21 20 Blood Pressure 112/65 104/62 Pulse Oximetry 96 95 95 11/09/17 04:30 11/09/17 05:00 11/09/17 05:30 Temperature Pulse Rate 69 71 71 Respiratory Rate 22 22 20 Blood Pressure 101/61 104/60 109/62 Pulse Oximetry 94 L 95 94 L 11/09/17 06:00 11/09/17 06:30 11/09/17 07:00 Temperature Pulse Rate 71 72 71 Respiratory Rate 18 22 20 Blood Pressure 120/60 122/65 121/66 Pulse Oximetry 94 L 97 97 11/09/17 07:30 11/09/17 08:00 11/09/17 08:05 Temperature 97.7 F Pulse Rate 71 71 70 Respiratory Rate 21 23 21 Blood Pressure 118/65 112/63 Pulse Oximetry 97 95 95 11/09/17 08:15 11/09/17 10:00 11/09/17 12:17 Temperature Pulse Rate 70 69 72 Respiratory Rate 17 20 Blood Pressure 115/60 Pulse Oximetry 95 97 Intake & Output 11/08/17 11/09/17 11/09/17 18:59 06:59 18:59 Intake Total 1191 / 1191 900 / 900 400 / 400 Output Total 0 / 0 3800 / 3800 Balance 1191 / 1191 900 / 900 -3400 / -3400 Weight 136.5 kg Intake: IV 1100 / 1100 900 / 900 400 / 400 Precedex Inj 1,000 MCG In NS 500 / 500 500 / 500 Inj 240 ML @ 0.2 MCG/KG/HR 7 mls/hr IV.CONT TITRATE PRN Rx#: [id number] Diprivan 1000 mg/100 ml Inj 1, 500 / 500 400 / 400 200 / 200 000 mg In 100 ml @ 5 MCG/KG/MIN 3.81 mls/hr IV.CONT TITRATE PRN Rx#:[id number] Flexbumin 25% Inj 100 ML @ 60 200 / 200 mls/hr IV.SIG WITH DIALYSIS PRN Rx#:[id number] Ancef Inj 1,000 MG In NS Inj 100 / 100 100 ML @ 200 mls/hr IV.SIG Q24H [facility] Rx#:[id number] Tube Feeding 91 / 91 0 / 0 Output: Urine 0 / 0 Hemodialysis Amount 3800 / 3800 Other: Date of Last Bowel Movement 11/08/17 # Bowel Movements 0 Result Diagrams: 11/09/17 07:57 11/09/17 07:57 Other Results: Microbiology 11/04/17 03:45 Sputum - Endotracheal Gram Stain - Final 11/04/17 03:45 Sputum - Endotracheal Sputum Culture - Final No growth in 48 hours 11/01/17 04:40 Blood - Peripheral Aerobic Blood Culture - Final No growth in 5 days 11/01/17 04:40 Blood - Peripheral Anaerobic Blood Culture - Final No growth in 5 days 11/01/17 06:39 Blood - Peripheral Aerobic Blood Culture - Final No growth in 5 days 11/01/17 06:39 Blood - Peripheral Anaerobic Blood Culture - Final QNS - See aerobic report. 11/03/17 05:30 Stool Enteric Pathogens (PCR) - Final 10/30/17 17:50 Blood - Peripheral Aerobic Blood Culture - Final Group A beta (Strep pyogenes) 10/30/17 17:50 Blood - Peripheral Anaerobic Blood Culture - Final Group A beta (Strep pyogenes) 10/30/17 17:50 Blood - Peripheral Aerobic Blood Culture - Final Group A beta (Strep pyogenes) Staphylococcus aureus 10/30/17 17:50 Blood - Peripheral Anaerobic Blood Culture - Final Group A beta (Strep pyogenes) 10/31/17 04:55 Sputum - Endotracheal Gram Stain - Final 10/31/17 04:55 Sputum - Endotracheal Sputum Culture - Final Group A beta (Strep pyogenes) 10/31/17 01:10 Urine - Catheterized Urine Streptococcus pneumoniae Antigen ( M - Final Presumptive negative for streptococcus pneumoniae antigen, suggesting no current or recent infection. Infection due to Streptococcus pneumoniae cannot be ruled out since the antigen present in the sample may be below the detection limit of the test. 10/31/17 01:10 Urine - Catheterized Urine Legionella Antigen - Final Presumptive negative for Legionella pneumophila serogroup 1 antigen in urine, suggesting no recent or recurrent infection. Infection due to Legionella cannot be ruled out since other serogroups and species may cause disease, antigen may not be present in urine in early infection, and the level of antigen present in the urine may be below the detection limit of the test. 10/31/17 02:30 Nasal Wash Influenza Types A,B Antigen - Final Negative for FLU A and B antigen Infection due to influenza A or B cannot be ruled out since the antigen present in the sample may be below the detection limit of the test. Imaging: Abdomen/Pelvis CT 10/30/17 17:35 CONCLUSION: 1. Mild colitis predominantly on the right side with trace free fluid and some inflammatory changes on the right. No bowel obstruction. No free air. 2. Multiple layering gallstones. 3. Subsegmental basilar airspace consolidation in the lungs. Differential diagnosis includes mild pneumonia. 4. Fatty liver enlarged to 25 cm. Chest X-Ray 10/30/17 17:35 CONCLUSION: Subsegmental basilar airspace disease, right greater than left. Differential diagnosis includes pneumonia and atelectasis, in patient with fever. Head CT 10/30/17 17:35 CONCLUSION: 1. No acute intracranial abnormalities. . Chest CTA 10/30/17 19:02 CONCLUSION: 1. Suboptimal bolus but no evidence for central pulmonary emboli. 2. Patchy airspace consolidation right lung base most characteristic of pneumonia. No significant effusion. Foot X-Ray 10/30/17 21:27 CONCLUSION: No acute findings. Mild degenerative change in the right foot. Prominent calcaneal bone spurs. Foot X-Ray 10/30/17 21:27 CONCLUSION: No acute findings. Moderate degenerative change. Bone spurs posterior calcaneus. Lumbar Spine CT 10/30/17 21:43 CONCLUSION: 1. No acute fracture. 2. 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 3. At L5-S1 there is a small central disc protrusion. Mild bilateral foraminal encroachment. Thoracic Spine CT 10/30/17 21:43 CONCLUSION: 1. Negative for acute traumatic injury to the thoracic spine. Small Schmorl's nodes in the lower thoracic spine. Foot MRI 10/31/17 00:00 CONCLUSION: 1. Lumbar Spine MRI 10/31/17 00:00 CONCLUSION: Extruded disc fragment with a donor site at L4-L5 lying posterior to the L4 vertebral body severe right-sided and moderate left-sided foraminal narrowing. There is no evidence of abscess. Sacrum/Coccyx MRI 10/31/17 00:00 CONCLUSION: 1. Negative MRI of the sacrum Chest X-Ray 10/31/17 01:38 CONCLUSION: 1. Interval intubation and placement of right internal jugular central venous line with no pneumothorax. 2. Placement of nasogastric tube. 3. Mid inspiratory study with crowding of the lung vasculature. Chest X-Ray 11/01/17 06:00 CONCLUSION: Mid inspiratory study with crowding of the lung vasculature and perihilar and bibasilar opacities which appear mildly increased. Abdomen X-Ray 11/01/17 10:38 CONCLUSION: Nonobstructive bowel gas pattern. Chest X-Ray 11/02/17 00:00 CONCLUSION: Bilateral central lines including a new left Vas-Cath in good position. Bibasilar areas of consolidation or atelectasis. Abdomen X-Ray 11/03/17 00:00 CONCLUSION: Increased distention of air-filled regions of the colon. Mild air-filled distention of the stomach. Abdomen X-Ray 11/04/17 00:00 CONCLUSION: Unremarkable exam. No evidence of bowel obstruction. Chest X-Ray 11/04/17 08:13 CONCLUSION: Stable lines and tubes. Hypoinflation of the lungs with progressive worsening airspace opacity. This may reflect pulmonary edema or volume overload or progressive infectious process. Chest X-Ray 11/06/17 06:00 CONCLUSION: Left lower lobe airspace disease and small left effusion suspected. Abdomen X-Ray 11/06/17 09:20 CONCLUSION: Nonobstructive bowel gas pattern. No pneumoperitoneum. Abdomen X-Ray 11/07/17 00:00 CONCLUSION: NG tip in stomach. No free air. Abdomen/Pelvis CT 11/08/17 00:00 CONCLUSION: 1. Nonspecific, nonobstructive bowel gas pattern most consistent with an ileus and/or gastroenteritis. There is a small amount of ascitic fluid. The study was performed without intravenous or oral contrast. 2. Consolidation now noted in both lung bases with small effusions left greater than right. 3. Multiple calcified gallstones again noted. 4. Small gas bubble in the bladder likely due to recent instrumentation. Chest X-Ray 11/08/17 06:00 CONCLUSION: Increasing airspace disease left lung. Chest X-Ray 11/09/17 06:00 CONCLUSION: Stable exam. Objective Remarks: GENERAL: Patient is 52 yo intubated and sedated with propofol and dexmedetomidine drip SKIN: Warm and dry. HEAD: Normocephalic. EYES: Pupils are round 1 mm bilaterally and brisk. + scleral icterus and edema. NECK: Supple, trachea midline. No JVD or lymphadenopathy. CARDIOVASCULAR: Tachycardic, RR. S1, S2 no S4. Without murmur, gallops, or rubs. RESPIRATORY: Breath sounds appreciated anteriorly with few bibasilar crackles. GASTROINTESTINAL: Abdomen soft, non-tender, nondistended. Hypoactive bowel sounds appreciated. MUSCULOSKELETAL: No significant peripheral edema. Neuro: Intubated, sedated. Partially opens eyes moves extremities, did not follow commands Assessment and Plan - Assessment and Plan Plan: NEURO/PSYCH: Delirium tremens Acute toxic metabolic encephalopathy EtOH dependence CT brain 10/30- for acute intracranial abnormality On propofol at 40 m/kg/min for sedation and vent synchrony. Dexmedetomidine 1.1 mcg/kg/h to facilitate vent weaning Continue thiamine/folic acid/multivitamin. Lorazepam discontinued for 0 protocol 10/31 EEG: Encephalopathy, no epileptiform activity. Acetaminophen 650 mg p.o. every 8 hours as needed fever ETOH - 147 on admission RESP: Acute respiratory failure Aspiration pneumonia Intubated 10/31 for airway protection. PRVC 20 TV 550, IT:1.0, PEEP:5, FIO2: 50% Ventilator bundle, daily CPAP trials but mental status will not permit extubation Albuterol/ipratropium aerosols every 4 hours with albuterol aerosols every 2 hours as needed ABG/chest x-ray in a.m. 11/10 CV: Fluid overload/pulmonary edema Lactic acidemia- resolved Elevated troponin likely type II non-STEMI Off Levophed monitor HR and BP keep MAP>65mmHg Lactic acid cleared 1.0 Echo showed EF 65-70% Monitor trop (trending down). on stress dose stress steroids- HC 25ml IV q12 continue to wean stop date GI: Right/transverse mild colitis/acute Alcoholic hepatitis Hepatic steatosis Hepatosplenomegaly. Liver is 25 cm. Cholelithiasis Hyperammonia Elevated total bilirubin On Lactulose 30ml QID and rifaximin 550 twice daily for elevated ammonia, currently less than 10 Continue tube feeds Nepro @10ml/hr with goal rate 40ml/hr CT abdomen and pelvis demonstrates thickening of right colon extending into transverse colon. There is hepatomegaly and steatosis. On metoclopramide 5 mg every 8 hours for prokinetic agent Docusate serum/senna twice daily, polythene glycol 17 g twice daily, lactulose 4 times daily, mineral oil 30 cc 1 and enema/manual disimpaction. 11/08 CT abdomen/pelvis revealed ileus. No signs of bowel obstruction. Small ascites. Left lower lobe effusion. Attempt neostigmine 2 mg IV 1 with atropine at bedside FEN/RENAL: Acute kidney failure No hydronephrosis on CT abdomen/pelvis. Monitor renal function, I/O's, avoid nephrotoxins Renal is following- Dr. Valadez. HD initiated 11/02 with removal 2L. 6L removed 11/05. 2.5 L removed 11/07. Pending . Attempt 4 L ID: Group A beta Strep bacteremia 07/05 bilaterally Cellulitis toes bilaterally Leukocytosis...trending down He received piperacillin/tazobactam and vancomycin in the emergency department. Blood culture x 2 10/30 -gram-positive cocci/strep pyogenes - BC 11/01: NGTD Sputum 11/04: NGTD Sputum 10/31 -Strep Pyogenes C diff negative urine pneumococcal antigen, urine Legionella antigen, influenza a and B- all negative Infectious disease is following- Dr. Segovia Abx per ID (cefazolin) monitor for signs of infections ( Fever, WBC) MRI foot: No abscess, HEME: Acute coagulopathy DIC Leukocytosis Macrocytic anemia Thrombocytopenia Monitor coags/CBC/platelets. There is no significant active bleeding at this time, Monitor CBC. coags. s/p 2u FFP 11/02 for vascath placement ENDO: Acute hyperglycemia ? undiagnosed diabetes mellitus. Sliding-scale insulin with aspart insulin with Accu-Cheks every 6 hours to maintain euglycemia/medium regimen MSK: L5/S1 disc protrusion Pars defect L4/L5 Not a candidate for surgical intervention at this time per Dr. King consult PROPH: SCDs for DVT prophylaxis. Avoid pharmacologic DVT prophylaxis at this time due to coagulopathy, thrombocytopenia. Lansoprazole for stress ulcer prophylaxis ACCESS: Right IJ central venous line placed 10/31. Discontinue 11/07. Left radial arterial line placed 11/01. Left IJ vascath placed 11/02 CCT 30 mins
[2017-11-09] MEDS ORDERED: Neostigmine Inj 5 MG/5 ML Syringe IV.PUSH ONE (13:00)
[2017-11-10] MEDS: Dexmedetomidine Inj 1,000 MCG in Sodium Chlor 0.9% Inj 240 ML IV.CONT PRN ×3 (00:44→20:26)
[2017-11-10] MEDS: Oral Hygiene Kit OROPHARYNG SCH ×3 (03:34→16:03)
[2017-11-10] MEDS: Insulin NovoLOG Aspart Correctional Sugar Inj SQ SCH ×2 (06:06→11:37)
[2017-11-10 06:11] LABS: ABG Base Excess -5.1 mmol/L (-2-2); ABG PCO2 28 mmHg (38-42); ABG PO2 73 mmHG (61-120)
--- NOTE | 2017-11-10 06:18 | XR ---
EXAM DATE: 11/10/2017 6:00 AM EDT AGE/SEX: 52 years / Male INDICATIONS: Shortness of breath, possible pulmonary disease. CLINICAL DATA: This is the patient's subsequent encounter. Patient reports that signs and symptoms h ave been present for 1 week and indicates a pain score of Nonresponsive. MEDICAL/SURGICAL HISTORY: Non-responsive. Non-responsive. COMPARISON: C, CHEST 1V SINGLE AP, 11/09/2017. . FINDINGS: Portable AP view of the chest demonstrates a normal-sized cardiac silhouette. ETT, nasogastric tube, and left IJ line remain present. There is persistent left basilar pleural-parenchymal opacity with ob scuration of the left hemidiaphragm. Mild atelectasis versus consolidation is present at the right ba se. No pneumothorax is identified. Lungs are underinflated. CONCLUSION: Stable chest x-ray with left pleural effusion with associated airspace consolidation. There is also m ild consolidation versus atelectasis at the right base. Electronically signed by: Red Le MD 11/10/2017 6:16 AM EDT
[2017-11-10] MEDS: Senna/Docusate Sodium 8.6/50 MG Tablet PO SCH ×2 (08:04→20:26)
[2017-11-10] MEDS: rifAXIMin 550 MG Tablet PO SCH ×2 (08:04→20:26)
[2017-11-10] MEDS: Calcium Acetate 667 MG Capsule PO SCH ×2 (08:04→13:32)
[2017-11-10] MEDS: Hypromellose 0.3% Opth Gel 10 GM Bottle EACH EYE SCH ×2 (08:05→20:25)
[2017-11-10] MEDS: Polyethylene Glycol 3350 17 GM Packet PO SCH ×2 (08:05→20:25)
[2017-11-10] MEDS: Mupirocin 2% Nasal Oint Topical Syringe EACH NARE SCH ×2 (08:05→20:25)
[2017-11-10] MEDS: Chlorhexidine 0.12% Oral Kit 15 ML UDC OROPHARYNG SCH ×2 (08:06→20:25)
[2017-11-10] MEDS: Propofol 1000 mg/100 ml Inj 1,000 MG/100 ML BOTTLE IV.CONT PRN ×2 (09:19→11:50)
[2017-11-10 10:43] LABS: Baso # (Auto) 0.2 th/mm3 (0.0-0.2); Baso % (Auto) 0.9 % (0.0-2.0); Eos # (Auto) 0.1 th/mm3 (0.0-0.4); Eos % (Auto) 0.3 % (0.0-4.0); Hematocrit 32.2 % (39.0-51.0); Hemoglobin 11.1 gm/dL (13.0-17.0); Lymph # (Auto) 1.4 th/mm3 (1.0-4.8); Lymph % (Auto) 5.4 % (9.0-44.0); Mean Corpuscular HGB Conc 34.4 % (32.0-36.0); Mean Corpuscular Hemoglobin 34.7 pg (27.0-34.0); Mean Platelet Volume 10.3 fL (7.0-11.0); Mono # (Auto) 1.3 th/mm3 (0.0-0.9); Mono % (Auto) 4.8 % (0.0-8.0); Neut # (Auto) 23.7 th/mm3 (1.8-7.7); Neut % (Auto) 88.6 % (16.0-70.0); Platelet Count 64 th/mm3 (150-450); Red Blood Count 3.18 mil/mm3 (4.50-5.90); Red Cell Distribution Width 15.2 % (11.6-17.2); White Blood Count 26.8 th/mm3 (4.0-11.0)
[2017-11-10 11:03] LABS: Activated Partial Thrombo Time 32.7 sec (24.3-30.1); INR 1.5 Ratio
[2017-11-10 11:24] LABS: Alanine Aminotransferase 68 U/L (12-78); Albumin 2.5 g/dL (3.4-5.0); Alkaline Phosphatase 186 U/L (45-117); Anion Gap 18 meq/L (5-15); Aspartate Aminotransferase 154 U/L (15-37); Blood Urea Nitrogen 83 mg/dL (7-18); Calcium 8.1 mg/dL (8.5-10.1); Chloride 98 meq/L (98-107); Glomerular Filtration Rate 6 mL/min (>89); Glucose,Random 113 mg/dL (74-106); Lipase 2172 U/L (73-393); Magnesium 2.9 mg/dL (1.5-2.5); Phosphorus 10.2 mg/dL (2.5-4.9); Potassium 5.3 meq/L (3.5-5.1); Sodium 136 meq/L (136-145); Total Protein 7.8 g/dL (6.4-8.2)
--- NOTE | 2017-11-10 11:24 | P.PNPAL ---
Reason for Visit Reason for visit: a. To assist with evaluation and management of symptoms including: dyspnea, pain, edema, constipation b. To assist medical decision maker(s) with: better understanding of current medical conditions; weighing benefits/burdens of medical treatment options; making medical treatment decisions. Subjective Subjective/Interval History: Dual visit with Dr. Mejias. Pt sedated on vent. s/p admin neostigmine, had large liquid BM, per RN. Still distended but BS more active today. CXR today shows left pleural effusion, mild consolidation vs. atelectasis right base. On 31.5ml/hr precedex, 37.34 propofol. Had HD yesterday, took off 3.8 L. + General edema. WBC trending up, 26.8 today (24.1 yesterday). Family/Friend Interactions: Telephone conference with Dr Mejias, myself, pt's father Will and negar Beltran to discuss following: - brief review Palliative care role, purpose, approach -in depth review family understanding of the current medical problems -family understanding of prognosis - they seem to have reasonably good insight -Current medical treatment options and their benefits/burdens -Likely scenarios comparing ongoing aggressive care with transition to ``comfort -measures only and hospice - CODE STATUS, benefits/burdens/limitations of CPR, intubation, and mechanical ventilation - family elected to make pt alt code -Questions answered to the best of my ability - Palliative care contact information provided Parents would like to discuss with other family over weekend and make decision Monday re tracheostomy. They appear to be considering withdrawal and asked if they should tell other family members to come visit. They did elect to change code status to alternate code; intubation only. Teleconference planned for Monday. Objective Vital Signs: Vital Signs 11/09/17 11:15 11/09/17 11:30 11/09/17 12:00 Temperature 98.3 F Pulse Rate 69 71 71 Respiratory Rate 22 21 20 Blood Pressure 105/55 L 107/59 L 105/58 L Pulse Oximetry 94 L 97 98 11/09/17 12:17 11/09/17 12:30 11/09/17 13:00 Temperature Pulse Rate 72 72 73 Respiratory Rate 20 21 22 Blood Pressure 105/57 L 106/59 L Pulse Oximetry 97 97 96 11/09/17 13:30 11/09/17 14:00 11/09/17 14:30 Temperature Pulse Rate 71 67 70 Respiratory Rate 20 21 20 Blood Pressure 110/61 110/57 L 108/61 Pulse Oximetry 96 93 L 93 L 11/09/17 15:00 11/09/17 15:30 11/09/17 16:00 Temperature 97.1 F L Pulse Rate 67 66 64 Respiratory Rate 20 20 20 Blood Pressure 115/58 L 117/59 L 118/61 Pulse Oximetry 94 L 94 L 93 L 11/09/17 16:30 11/09/17 16:51 11/09/17 16:54 Temperature Pulse Rate 66 64 Respiratory Rate 21 21 21 Blood Pressure 120/59 L Pulse Oximetry 94 L 96 11/09/17 17:00 11/09/17 17:30 11/09/17 18:00 Temperature Pulse Rate 63 64 63 Respiratory Rate 20 21 21 Blood Pressure 117/58 L 117/58 L 100/56 L Pulse Oximetry 93 L 93 L 93 L 11/09/17 18:30 11/09/17 19:00 11/09/17 19:30 Temperature 97.7 F Pulse Rate 63 62 61 Respiratory Rate 21 22 20 Blood Pressure 100/56 L 100/55 L 107/57 L Pulse Oximetry 93 L 93 L 93 L 11/09/17 20:00 11/09/17 20:30 11/09/17 21:00 Temperature Pulse Rate 61 60 60 Respiratory Rate 20 20 20 Blood Pressure 113/58 L 114/57 L 114/58 L Pulse Oximetry 94 L 93 L 94 L 11/09/17 21:08 11/09/17 21:30 11/09/17 22:00 Temperature Pulse Rate 60 60 59 L Respiratory Rate 20 20 20 Blood Pressure 110/57 L 108/56 L Pulse Oximetry 94 L 94 L 94 L 11/09/17 22:30 11/09/17 23:00 11/09/17 23:30 Temperature Pulse Rate 59 L 59 L 58 L Respiratory Rate 20 20 20 Blood Pressure 108/55 L 106/57 L 90/53 L Pulse Oximetry 94 L 94 L 93 L 11/10/17 00:00 11/10/17 00:30 11/10/17 00:59 Temperature Pulse Rate 57 L 56 L 56 L Respiratory Rate 20 20 20 Blood Pressure 90/55 L 92/53 L Pulse Oximetry 93 L 93 L 92 L 11/10/17 01:00 08/10/18 01:30 11/10/17 02:00 Temperature Pulse Rate 56 L 58 L 58 L Respiratory Rate 28 H 20 20 Blood Pressure 94/50 L 96/55 L 97/56 L Pulse Oximetry 92 L 93 L 92 L 11/10/17 02:30 11/10/17 03:00 11/10/17 03:30 Temperature Pulse Rate 58 L 58 L 58 L Respiratory Rate 21 20 22 Blood Pressure 99/57 L 102/58 L 104/55 L Pulse Oximetry 92 L 92 L 92 L 11/10/17 04:00 11/10/17 04:30 11/10/17 04:45 Temperature Pulse Rate 58 L 58 L 58 L Respiratory Rate 20 20 20 Blood Pressure 109/58 L 111/59 L Pulse Oximetry 93 L 95 96 11/10/17 05:00 11/10/17 05:30 11/10/17 06:00 Temperature Pulse Rate 59 L 60 59 L Respiratory Rate 22 22 20 Blood Pressure 108/55 L 106/58 L 107/55 L Pulse Oximetry 94 L 94 L 93 L 11/10/17 06:30 11/10/17 07:00 11/10/17 07:30 Temperature Pulse Rate 60 60 59 L Respiratory Rate 21 21 20 Blood Pressure 108/56 L 101/57 L 103/59 L Pulse Oximetry 94 L 94 L 95 11/10/17 07:45 11/10/17 08:00 11/10/17 08:30 Temperature 97.5 F L Pulse Rate 58 L 62 64 Respiratory Rate 30 H 22 21 Blood Pressure 89/55 L 98/56 L Pulse Oximetry 96 97 Intake & Output 11/09/17 11/10/17 11/10/17 18:59 06:59 18:59 Intake Total 1105 / 1105 906 / 906 100 / 100 Output Total 7600 / 7600 0 / 0 Balance -6495 / -6495 906 / 906 100 / 100 Weight 137.5 kg Intake: IV 1050 / 1050 700 / 700 100 / 100 Precedex Inj 1,000 MCG In NS 250 / 250 500 / 500 Inj 240 ML @ 0.2 MCG/KG/HR 7 mls/hr IV.CONT TITRATE PRN Rx#: [id number] Diprivan 1000 mg/100 ml Inj 1, 500 / 500 200 / 200 100 / 100 000 mg In 100 ml @ 5 MCG/KG/MIN 3.81 mls/hr IV.CONT TITRATE PRN Rx#:[id number] Flexbumin 25% Inj 100 ML @ 60 200 / 200 mls/hr IV.SIG WITH DIALYSIS PRN Rx#:[id number] Ancef Inj 1,000 MG In NS Inj 100 / 100 100 ML @ 200 mls/hr IV.SIG Q24H KEVAN Rx#:[id number] Tube Feeding 55 / 55 106 / 106 Water Bolus Amount 100 / 100 Output: Urine 0 / 0 0 / 0 Hemodialysis Amount 7600 / 7600 Other: Date of Last Bowel Movement 11/09/17 # Incontinent Bowel Movements 1 Physical Exam: CONSTITUTIONAL/GENERAL: appears jaundiced, bloated, ill, sedated and intubated on vent TUBES/LINES/DRAINS: vascath, anderson, ET tube SKIN: +jaundice +scar anterior left solomon. HEAD: Atraumatic. Normocephalic. EYES: PERRL. Extraocular motions intact. +icterus. few small abrasions on face. eyes glassy ENT: unable to assess hearing, sedated on vent. Nose without bleeding or purulent drainage. throat exam limited by ET tube. CARDIOVASCULAR: RRR without murmurs, gallops, or rubs. No JVD. Peripheral pulses symmetric. RESPIRATORY/CHEST: Symmetric, unlabored respirations. Clear to auscultation. Diminished breath sounds. No wheezes, rales, or rhonchi. GASTROINTESTINAL: Abdomen distended, semifirm. bowel sounds active today > yesterday GENITOURINARY: Without palpable bladder distension. Anderson catheter in place. MUSCULOSKELETAL: Extremities without clubbing, cyanosis. + generalized edema Bilat toes cool to touch. NEUROLOGICAL: sedated on vent, unresponsive PSYCHIATRIC: unable to assess, sedated on vent Diagnostic Tests Laboratory: Laboratory Results - last 72 hr 11/07/17 11/07/17 11/07/17 12:45 17:37 23:35 WBC RBC Hgb Hct MCV MCH MCHC RDW Plt Count MPV Prelim Diff (Auto) Neut % (Auto) Lymph % (Auto) [place] % (Auto) Eos % (Auto) Baso % (Auto) Neut # (Auto) Lymph # (Auto) [place] # (Auto) Eos # (Auto) Baso # (Auto) WBC Differential Seg Neuts % (Manual) Band Neuts % (Manual) Lymphocytes % (Manual) Monocytes % (Manual) Eosinophils % (Manual) Metamyelocytes % (Man) Myelocytes % (Man) Abs Neuts (Manual) Differential Comment Toxic Granulation Toxic Vacuolation Platelet Estimate Platelet Morphology PT INR APTT Fibrinogen Puncture Site Patient Temperature O2 Saturation ABG pH ABG pCO2 ABG pO2 ABG HCO3 ABG O2 Content ABG Base Excess ABG Methemoglobin Jamar Test Hemoglobin Carboxyhemoglobin O2 Delivery Device Vent Setting Inspired O2 Critical Value Sodium Potassium 4.5 D Chloride Carbon Dioxide Anion Gap BUN Creatinine Estimated GFR POC Glucose 168 H 162 H Random Glucose Lactic Acid Calcium Phosphorus Magnesium Total Bilirubin Direct Bilirubin Indirect Bilirubin AST ALT Alkaline Phosphatase Ammonia Total Protein Albumin Amylase Lipase 11/08/17 11/08/17 11/08/17 05:24 05:24 05:24 WBC 20.0 H RBC 3.54 L Hgb 12.3 L Hct 36.3 L MCV 102.6 H MCH 34.7 H MCHC 33.8 RDW 15.3 Plt Count 70 L MPV 10.6 Prelim Diff (Auto) Slide review pending Neut % (Auto) 86.5 H Lymph % (Auto) 6.2 L Scre[place] % (Auto) 6.6 Eos % (Auto) 0.4 Baso % (Auto) 0.3 Neut # (Auto) 17.3 H Lymph # (Auto) 1.3 Screven # (Auto) 1.3 H Eos # (Auto) 0.1 Baso # (Auto) 0.1 WBC Differential Manual diff final Seg Neuts % (Manual) 80 H Band Neuts % (Manual) 3 Lymphocytes % (Manual) 4 L Monocytes % (Manual) 10 H Eosinophils % (Manual) Metamyelocytes % (Man) 2 H Myelocytes % (Man) 1 H Abs Neuts (Manual) 17.2 H Differential Comment . Toxic Granulation 1+ H Toxic Vacuolation Present H Platelet Estimate Low L Platelet Morphology Enlarged H PT 16.1 H INR 1.6 APTT 32.9 H Fibrinogen Puncture Site Patient Temperature O2 Saturation ABG pH ABG pCO2 ABG pO2 ABG HCO3 ABG O2 Content ABG Base Excess ABG Methemoglobin Jamar Test Hemoglobin Carboxyhemoglobin O2 Delivery Device Vent Setting Inspired O2 Critical Value Sodium 140 Potassium 5.1 Chloride 101 Carbon Dioxide 24.0 Anion Gap 15 BUN 96 H Creatinine 8.92 H Estimated GFR 6 L POC Glucose Random Glucose 149 H Lactic Acid Calcium 7.8 L Phosphorus 9.2 H D Magnesium 3.1 H Total Bilirubin 11.3 H Direct Bilirubin 9.5 H Indirect Bilirubin 1.8 H AST 134 H ALT 82 H Alkaline Phosphatase 158 H Ammonia Total Protein 7.3 Albumin 2.3 L D Amylase Lipase 11/08/17 11/08/17 11/08/17 05:24 05:24 05:37 WBC RBC Hgb Hct MCV MCH MCHC RDW Plt Count MPV Prelim Diff (Auto) Neut % (Auto) Lymph % (Auto) [place] % (Auto) Eos % (Auto) Baso % (Auto) Neut # (Auto) Lymph # (Auto) [place] # (Auto) Eos # (Auto) Baso # (Auto) WBC Differential Seg Neuts % (Manual) Band Neuts % (Manual) Lymphocytes % (Manual) Monocytes % (Manual) Eosinophils % (Manual) Metamyelocytes % (Man) Myelocytes % (Man) Abs Neuts (Manual) Differential Comment Toxic Granulation Toxic Vacuolation Platelet Estimate Platelet Morphology PT INR APTT Fibrinogen Puncture Site Patient Temperature O2 Saturation ABG pH ABG pCO2 ABG pO2 ABG HCO3 ABG O2 Content ABG Base Excess ABG Methemoglobin Jamar Test Hemoglobin Carboxyhemoglobin O2 Delivery Device Vent Setting Inspired O2 Critical Value Sodium Potassium Chloride Carbon Dioxide Anion Gap BUN Creatinine Estimated GFR POC Glucose 158 H Random Glucose Lactic Acid 1.5 Calcium Phosphorus Magnesium Total Bilirubin Direct Bilirubin Indirect Bilirubin AST ALT Alkaline Phosphatase Ammonia 11 Total Protein Albumin Amylase Lipase 11/08/17 11/08/17 11/08/17 11:23 12:11 17:42 WBC RBC Hgb Hct MCV MCH MCHC RDW Plt Count MPV Prelim Diff (Auto) Neut % (Auto) Lymph % (Auto) [place] % (Auto) Eos % (Auto) Baso % (Auto) Neut # (Auto) Lymph # (Auto) [place] # (Auto) Eos # (Auto) Baso # (Auto) WBC Differential Seg Neuts % (Manual) Band Neuts % (Manual) Lymphocytes % (Manual) Monocytes % (Manual) Eosinophils % (Manual) Metamyelocytes % (Man) Myelocytes % (Man) Abs Neuts (Manual) Differential Comment Toxic Granulation Toxic Vacuolation Platelet Estimate Platelet Morphology PT INR APTT Fibrinogen Puncture Site Left radial Patient Temperature 98.6 O2 Saturation 90 ABG pH 7.49 H ABG pCO2 25 L ABG pO2 63 ABG HCO3 19 L ABG O2 Content 15.0 ABG Base Excess -4.2 L ABG Methemoglobin 1.5 Jamar Test Present Hemoglobin 11.9 L Carboxyhemoglobin 0.7 O2 Delivery Device Ventilator Vent Setting 20/550/[id number] Inspired O2 50 Critical Value No Sodium Potassium Chloride Carbon Dioxide Anion Gap BUN Creatinine Estimated GFR POC Glucose 154 H 127 H Random Glucose Lactic Acid Calcium Phosphorus Magnesium Total Bilirubin Direct Bilirubin Indirect Bilirubin AST ALT Alkaline Phosphatase Ammonia Total Protein Albumin Amylase Lipase 11/08/17 11/09/17 11/09/17 23:15 05:06 07:57 WBC 24.1 H RBC 3.47 L Hgb 12.0 L Hct 34.9 L MCV 100.8 H MCH 34.7 H MCHC 34.5 RDW 15.1 Plt Count 66 L MPV 10.6 Prelim Diff (Auto) Slide review pending Neut % (Auto) 91.4 H Lymph % (Auto) 3.6 L [place] % (Auto) 4.2 Eos % (Auto) 0.4 Baso % (Auto) 0.4 Neut # (Auto) 22.0 H Lymph # (Auto) 0.9 L [place] # (Auto) 1.0 H Eos # (Auto) 0.1 Baso # (Auto) 0.1 WBC Differential Manual diff final Seg Neuts % (Manual) 86 H Band Neuts % (Manual) 4 Lymphocytes % (Manual) 3 L Monocytes % (Manual) 5 Eosinophils % (Manual) 1 Metamyelocytes % (Man) 1 Myelocytes % (Man) Abs Neuts (Manual) 21.9 H Differential Comment . Toxic Granulation 1+ H Toxic Vacuolation Platelet Estimate Low L Platelet Morphology Normal PT INR APTT Fibrinogen Puncture Site Patient Temperature O2 Saturation ABG pH ABG pCO2 ABG pO2 ABG HCO3 ABG O2 Content ABG Base Excess ABG Methemoglobin Jamar Test Hemoglobin Carboxyhemoglobin O2 Delivery Device Vent Setting Inspired O2 Critical Value Sodium Potassium Chloride Carbon Dioxide Anion Gap BUN Creatinine Estimated GFR POC Glucose 119 H 137 H Random Glucose Lactic Acid Calcium Phosphorus Magnesium Total Bilirubin Direct Bilirubin Indirect Bilirubin AST ALT Alkaline Phosphatase Ammonia Total Protein Albumin Amylase Lipase 11/09/17 11/09/17 11/09/17 07:57 07:57 07:57 WBC RBC Hgb Hct MCV MCH MCHC RDW Plt Count MPV Prelim Diff (Auto) Neut % (Auto) Lymph % (Auto) [place] % (Auto) Eos % (Auto) Baso % (Auto) Neut # (Auto) Lymph # (Auto) [place] # (Auto) Eos # (Auto) Baso # (Auto) WBC Differential Seg Neuts % (Manual) Band Neuts % (Manual) Lymphocytes % (Manual) Monocytes % (Manual) Eosinophils % (Manual) Metamyelocytes % (Man) Myelocytes % (Man) Abs Neuts (Manual) Differential Comment Toxic Granulation Toxic Vacuolation Platelet Estimate Platelet Morphology PT 15.4 H INR 1.5 APTT 32.7 H Fibrinogen 187 L Puncture Site Patient Temperature O2 Saturation ABG pH ABG pCO2 ABG pO2 ABG HCO3 ABG O2 Content ABG Base Excess ABG Methemoglobin Jamar Test Hemoglobin Carboxyhemoglobin O2 Delivery Device Vent Setting Inspired O2 Critical Value Sodium 137 Potassium 5.5 H Chloride 100 Carbon Dioxide 18.7 L Anion Gap 18 H BUN 113 H Creatinine 10.08 H* D Estimated GFR 5 L POC Glucose Random Glucose 128 H Lactic Acid 1.2 Calcium 7.6 L Phosphorus 11.0 H D Magnesium 3.1 H Total Bilirubin 9.9 H Direct Bilirubin Indirect Bilirubin AST 129 H ALT 77 Alkaline Phosphatase 170 H Ammonia Total Protein 7.2 Albumin 2.2 L Amylase 152 H Lipase 2245 H 11/09/17 11/09/17 11/09/17 11:40 17:30 23:10 WBC RBC Hgb Hct MCV MCH MCHC RDW Plt Count MPV Prelim Diff (Auto) Neut % (Auto) Lymph % (Auto) [place] % (Auto) Eos % (Auto) Baso % (Auto) Neut # (Auto) Lymph # (Auto) [place] # (Auto) Eos # (Auto) Baso # (Auto) WBC Differential Seg Neuts % (Manual) Band Neuts % (Manual) Lymphocytes % (Manual) Monocytes % (Manual) Eosinophils % (Manual) Metamyelocytes % (Man) Myelocytes % (Man) Abs Neuts (Manual) Differential Comment Toxic Granulation Toxic Vacuolation Platelet Estimate Platelet Morphology PT INR APTT Fibrinogen Puncture Site Patient Temperature O2 Saturation ABG pH ABG pCO2 ABG pO2 ABG HCO3 ABG O2 Content ABG Base Excess ABG Methemoglobin Jamar Test Hemoglobin Carboxyhemoglobin O2 Delivery Device Vent Setting Inspired O2 Critical Value Sodium Potassium Chloride Carbon Dioxide Anion Gap BUN Creatinine Estimated GFR POC Glucose 111 H 130 H 114 H Random Glucose Lactic Acid Calcium Phosphorus Magnesium Total Bilirubin Direct Bilirubin Indirect Bilirubin AST ALT Alkaline Phosphatase Ammonia Total Protein Albumin Amylase Lipase 11/10/17 11/10/17 11/10/17 05:11 05:56 10:30 WBC 26.8 H RBC 3.18 L Hgb 11.1 L Hct 32.2 L MCV 101.0 H MCH 34.7 H MCHC 34.4 RDW 15.2 Plt Count 64 L MPV 10.3 Prelim Diff (Auto) Slide review pending Neut % (Auto) 88.6 H Lymph % (Auto) 5.4 L [place] % (Auto) 4.8 Eos % (Auto) 0.3 Baso % (Auto) 0.9 Neut # (Auto) 23.7 H Lymph # (Auto) 1.4 [place] # (Auto) 1.3 H Eos # (Auto) 0.1 Baso # (Auto) 0.2 WBC Differential Seg Neuts % (Manual) Band Neuts % (Manual) Lymphocytes % (Manual) Monocytes % (Manual) Eosinophils % (Manual) Metamyelocytes % (Man) Myelocytes % (Man) Abs Neuts (Manual) Differential Comment . Toxic Granulation Toxic Vacuolation Platelet Estimate Platelet Morphology PT INR APTT Fibrinogen Puncture Site Right radial Patient Temperature 98.6 O2 Saturation 90 ABG pH 7.44 H ABG pCO2 28 L ABG pO2 73 ABG HCO3 18 L ABG O2 Content 14.7 ABG Base Excess -5.1 L ABG Methemoglobin 1.9 Jamar Test Present Hemoglobin 11.5 L Carboxyhemoglobin 0.7 O2 Delivery Device Vent Vent Setting See comment Inspired O2 50 Critical Value No Sodium Potassium Chloride Carbon Dioxide Anion Gap BUN Creatinine Estimated GFR POC Glucose 135 H Random Glucose Lactic Acid Calcium Phosphorus Magnesium Total Bilirubin Direct Bilirubin Indirect Bilirubin AST ALT Alkaline Phosphatase Ammonia Total Protein Albumin Amylase Lipase 11/10/17 11/10/17 11/10/17 10:30 10:30 10:30 WBC RBC Hgb Hct MCV MCH MCHC RDW Plt Count MPV Prelim Diff (Auto) Neut % (Auto) Lymph % (Auto) [place] % (Auto) Eos % (Auto) Baso % (Auto) Neut # (Auto) Lymph # (Auto) [place] # (Auto) Eos # (Auto) Baso # (Auto) WBC Differential Seg Neuts % (Manual) Band Neuts % (Manual) Lymphocytes % (Manual) Monocytes % (Manual) Eosinophils % (Manual) Metamyelocytes % (Man) Myelocytes % (Man) Abs Neuts (Manual) Differential Comment Toxic Granulation Toxic Vacuolation Platelet Estimate Platelet Morphology PT 15.0 H INR 1.5 APTT 32.7 H Fibrinogen 217 L Puncture Site Patient Temperature O2 Saturation ABG pH ABG pCO2 ABG pO2 ABG HCO3 ABG O2 Content ABG Base Excess ABG Methemoglobin Jamar Test Hemoglobin Carboxyhemoglobin O2 Delivery Device Vent Setting Inspired O2 Critical Value Sodium Potassium Chloride Carbon Dioxide Anion Gap BUN Creatinine Estimated GFR POC Glucose Random Glucose Lactic Acid 1.4 Calcium Phosphorus Magnesium Total Bilirubin Direct Bilirubin Indirect Bilirubin AST ALT Alkaline Phosphatase Ammonia 28 Total Protein Albumin Amylase Lipase Result Diagrams: 11/10/17 10:30 11/10/17 10:30 Procedures: 10/31 intubated 10/31 right IJ central line placement 11/02 left IJ vascath placement Assessment and Plan - Disease Oriented Problem List (1) Sepsis (2) PNA (pneumonia) (3) Acute kidney injury (4) Alcohol abuse Pertinent Non-Medical Issues: Psychosocial: Living at home alone, had a girlfriend. 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 Currently unemployed. Originally from [place]. Has spent some years in [place] and [place]. Has been in [place] for 2 years. Has 1 brother. His parents live in [facility]. Spiritual: no particular affiliation. proxy declines instructional developer visits. Legal:Pt is not capacitated to make medical decisions. It is unlikely he will regain that capacity. He is unmarried and has no children. Per [place] statute proxy medical decisionmaking falls to his parents, who seem to be working together. Ethical issues impacting care: none Important Contacts: Pt's proxy decision maker father Will, who includes his and pt's stepmom Ruby: preferred number so they can talk together on speakerphone: [phone] home phone: [phone], Prognosis: THis is a 52 yo male with no significant prior medical hx aside from heavy binge drinking who presented 10/30 with AMS, fevers. Now sedated on vent in [facility] being treated for PNA, cellulitis in toes. He is on HD with worsening renal function and anuria. It is unclear if his renal function will improve. His MELD is 42 and his 90 day mortality is 92%. Multiple organ systems are now affected - he has developed an ileus, coagulopathy, has worsening renal function , liver injury, respiratory failure. He is at risk for further infections, setbacks, complications. His prognosis is poor. Code Status: Alternative Code (intubation only) Plan: * LEGAL DECISION MAKER - Pt is not capacitated to make medical decisions. It is unlikely he will regain that capacity. He is unmarried and has no children. Per [place] statute proxy medical decision making falls to his father Will. Will includes his , pt's negar Beltran in decision making. * CODE STATUS - alt code, intubation only * GOALS - Parents would like to discuss with other family over weekend and make decision Monday re tracheostomy. They appear to be considering withdrawal and asked if they should tell other family members to come visit. They did elect to change code status to alternate code; intubation only. Teleconference planned for Monday. @1600 update -patient was just extubated and family for now would like reintubation if needed but they will discuss over the weekend. They are still considering a transition to comfort measures * SYMPTOMS * PAIN - multifactorial, 2/2 back pain ileus, lines and catheters, ET tube. ? pancreatitis? if he develops severe pain, consider dilaudid in light if kidney dysfunction. He is currently on sedation. Caution with apap since he has liver dz. * DYPSNEA - multifactorial, 2/2 PNA, effusion. Developed respiratory distress and stridor soon after admission. CXR today shows left pleural effusion, mild consolidation vs. atelectasis right base. On 31.5ml/hr precedex, 37.34 propofol. [facility] tevin. 1630 - pt just extubated. updated family, they would want him to be reintubated if needed. but will discuss over the weekend. * EDEMA - multifactorial 2/2 IV fluids, poor renal function. ?HRS? albumin 2.2. has liver dz, risk for ascites. NANETTE and ATN, vanc toxicity per nephrology. on HD, had yesterday and 3.8L removed. on replacement albumin * CONSTIPATION - minimal BM in many days. not tolerating TF, vomited yesterday. Ileus, seen on CT. abd distended, semifirm, BS more active today than yesterday. s/p admin neostigmine, had large liquid BM, per RN. on bowel regimen to include Reglan, kevan miralax, kevan sergei-colace. * Family prefers use of Ruby's cell number [phone], prefers to speak with physicians * palliative care SIMULATION DEVELOPER & MD will speak with family again Monday 11/13 * d/w [facility] Clemons, d/w [facility] * Palliative care will continue to follow during hospital course as condition evolves, to assist patient/decision-maker with understanding of medical conditions, weighing benefits/burdens of treatment options, for clarification of goals of treatment. Additionally will assist with any symptoms of palliative concern Attestation Attestation: To help prompt me to consider important information that might be impacting today's encounter and assessment, information from prior notes written by myself or my colleagues may have been "brought forward" into today's note. My signature on this note, however, is an attestation that I personally performed the exam, history, and/or decision-making noted today, and, unless otherwise indicated, the interactions with patient, family, and staff as well as the review of records all occurred today. I also attest that the listed assessment and stated plan reflect my best clinical judgment today based on the combination of historical information, prior notes, and today's exam/ interactions. When time spent is documented, it refers only to time spent today by the signer, or if indicated, combined time spent today by collaborating physician/nurse practitioner.
[2017-11-10 11:44] LABS: Eosinophils 1 % (0-4); Lymphocytes 4 % (9-44); Metamyelocytes 1 % (0-1); Monocytes 4 % (0-8); Myelocytes 1 % (0-0)
[2017-11-10 11:45] LABS: Toxic Granulation 1+
--- NOTE | 2017-11-10 12:08 | P.DIET ---
Nutritional Evaluation Type of nutrition evaluation: follow-up Nutrition consult regarding: Tube Feeding Objective - Diagnosis Sepsis, Alcohol W/D, Hypomagnesemia,PNA, Colitis - Objective [place] body weight: 94.5 kg % IBW: 136 Body Weight Used for Calculations: IBW Energy Needs - Lower Range (kCal/kg): 22 Energy Needs - Upper Range (kCal/kg): 27 Lower Limit kCal/kg (kCals): 2,079 Upper Limit kCal/kg (kCals): 2,552 Lower Limit Protein Factor (Grams per Kg): 1 Upper Limit Protein Factor (Grams per Kg): 1.2 Lower Protein Needs (Protein): 94 Upper Protein Needs (Protein): 113 Dietitian Reviewed in Medical Record: Curent medications, Intake & Output, Labs , Tube feeding Diet Order: TF only Objective Comments: PMH: Alcoho Dependence Labs Include: Ammonia 57, Creatinine 8.73, Glucose 113, K+ 5.3, Phos 10.2, Mg 2.9, T Bili 10.1, elevated LFT's Meds Include: Propofol, Fentanyl, Lactulose, Xifaxan, Phoslo HD 11/09 3800mls removed +1 BM Assessment Assessment: Pt is at nutritional risk r/t diagnosis and need for TF'ing. Pt remains intubated and sedated, Noted TF restarted after being on hold, and is currently running at 10 ml/hr. A goal rate of 50ml/hr is necessary to meet pt's assessed needs which offers 2160 kcal, 97.2g Protein and 872ml free water. Propofol provides some additional kcals(1.1 kcal/ml)when running. Reviewed palliative care note, family conference on Monday to discuss pt's clinical course. Will continue to monitor. Recommendations: TF'ing w/Nepro, Rec a goal rate @ 50ml/hr Dietitian to Monitor: Lab values, Electrolytes, Renal labs, Liver enzymes, Glucose level, Tube feeding tolerance, Weight change, Medical course
--- NOTE | 2017-11-10 12:16 | P.PNNP ---
Subjective Interval history: Remains intubated on sedation. Abdomen is distended. Hemodialysis yesterday. Seen by Palliative care today. <Sharon Sultana - Last Filed: 11/10/17 12:11> Physical Exam Vital signs: Vital Signs 11/09/17 12:17 11/09/17 12:30 11/09/17 13:00 Temperature Pulse Rate 72 72 73 Respiratory Rate 20 21 22 Blood Pressure 105/57 L 106/59 L Pulse Oximetry 97 97 96 11/09/17 13:30 11/09/17 14:00 11/09/17 14:30 Temperature Pulse Rate 71 67 70 Respiratory Rate 20 21 20 Blood Pressure 110/61 110/57 L 108/61 Pulse Oximetry 96 93 L 93 L 11/09/17 15:00 11/09/17 15:30 11/09/17 16:00 Temperature 97.1 F L Pulse Rate 67 66 64 Respiratory Rate 20 20 20 Blood Pressure 115/58 L 117/59 L 118/61 Pulse Oximetry 94 L 94 L 93 L 11/09/17 16:30 11/09/17 16:51 11/09/17 16:54 Temperature Pulse Rate 66 64 Respiratory Rate 21 21 21 Blood Pressure 120/59 L Pulse Oximetry 94 L 96 11/09/17 17:00 11/09/17 17:30 11/09/17 18:00 Temperature Pulse Rate 63 64 63 Respiratory Rate 20 21 21 Blood Pressure 117/58 L 117/58 L 100/56 L Pulse Oximetry 93 L 93 L 93 L 11/09/17 18:30 11/09/17 19:00 11/09/17 19:30 Temperature 97.7 F Pulse Rate 63 62 61 Respiratory Rate 21 22 20 Blood Pressure 100/56 L 100/55 L 107/57 L Pulse Oximetry 93 L 93 L 93 L 11/09/17 20:00 11/09/17 20:30 11/09/17 21:00 Temperature Pulse Rate 61 60 60 Respiratory Rate 20 20 20 Blood Pressure 113/58 L 114/57 L 114/58 L Pulse Oximetry 94 L 93 L 94 L 11/09/17 21:08 11/09/17 21:30 11/09/17 22:00 Temperature Pulse Rate 60 60 59 L Respiratory Rate 20 20 20 Blood Pressure 110/57 L 108/56 L Pulse Oximetry 94 L 94 L 94 L 11/09/17 22:30 11/09/17 23:00 11/09/17 23:30 Temperature Pulse Rate 59 L 59 L 58 L Respiratory Rate 20 20 20 Blood Pressure 108/55 L 106/57 L 90/53 L Pulse Oximetry 94 L 94 L 93 L 11/10/17 00:00 11/10/17 00:30 11/10/17 00:59 Temperature Pulse Rate 57 L 56 L 56 L Respiratory Rate 20 20 20 Blood Pressure 90/55 L 92/53 L Pulse Oximetry 93 L 93 L 92 L 11/10/17 01:00 11/10/17 01:30 11/10/17 02:00 Temperature Pulse Rate 56 L 58 L 58 L Respiratory Rate 28 H 20 20 Blood Pressure 94/50 L 96/55 L 97/56 L Pulse Oximetry 92 L 93 L 92 L 11/10/17 02:30 11/10/17 03:00 11/10/17 03:30 Temperature Pulse Rate 58 L 58 L 58 L Respiratory Rate 21 20 22 Blood Pressure 99/57 L 102/58 L 104/55 L Pulse Oximetry 92 L 92 L 92 L 11/10/17 04:00 11/10/17 04:30 11/10/17 04:45 Temperature Pulse Rate 58 L 58 L 58 L Respiratory Rate 20 20 20 Blood Pressure 109/58 L 111/59 L Pulse Oximetry 93 L 95 96 11/10/17 05:00 11/10/17 05:30 11/10/17 06:00 Temperature Pulse Rate 59 L 60 59 L Respiratory Rate 22 22 20 Blood Pressure 108/55 L 106/58 L 107/55 L Pulse Oximetry 94 L 94 L 93 L 11/10/17 06:30 11/10/17 07:00 11/10/17 07:30 Temperature Pulse Rate 60 60 59 L Respiratory Rate 21 21 20 Blood Pressure 108/56 L 101/57 L 103/59 L Pulse Oximetry 94 L 94 L 95 11/10/17 07:45 11/10/17 08:00 11/10/17 08:30 Temperature 97.5 F L Pulse Rate 58 L 62 64 Respiratory Rate 30 H 22 21 Blood Pressure 89/55 L 98/56 L Pulse Oximetry 96 97 11/10/17 10:00 11/10/17 11:58 Temperature Pulse Rate 60 58 L Respiratory Rate 16 Blood Pressure Pulse Oximetry 97 Intake & Output 11/09/17 11/10/17 11/10/17 18:59 06:59 18:59 Intake Total 1105 / 1105 906 / 906 450 / 450 Output Total 7600 / 7600 0 / 0 Balance -6495 / -6495 906 / 906 450 / 450 Weight 137.5 kg Intake: IV 1050 / 1050 700 / 700 450 / 450 Precedex Inj 1,000 MCG In NS 250 / 250 500 / 500 250 / 250 Inj 240 ML @ 0.2 MCG/KG/HR 7 mls/hr IV.CONT TITRATE PRN Rx#: [id number] Diprivan 1000 mg/100 ml Inj 1, 500 / 500 200 / 200 200 / 200 000 mg In 100 ml @ 5 MCG/KG/MIN 3.81 mls/hr IV.CONT TITRATE PRN Rx#:[id number] Flexbumin 25% Inj 100 ML @ 60 200 / 200 mls/hr IV.SIG WITH DIALYSIS PRN Rx#:[id number] Ancef Inj 1,000 MG In NS Inj 100 / 100 100 ML @ 200 mls/hr IV.SIG Q24H AMADEO Rx#:[id number] Tube Feeding 55 / 55 106 / 106 Water Bolus Amount 100 / 100 Output: Urine 0 / 0 0 / 0 Hemodialysis Amount 7600 / 7600 Other: Date of Last Bowel Movement 11/09/17 # Incontinent Bowel Movements 1 Narrative: GENERAL: Intubated and sedated SKIN: Warm and dry. Left IJ vas cath. HEAD: Normocephalic. EYES: No scleral icterus. No injection or drainage. NECK: Supple, trachea midline. No JVD or lymphadenopathy. CARDIOVASCULAR: Regular rate and rhythm without murmurs, gallops, or rubs. RESPIRATORY: Breath sounds decreased bilaterally. No accessory muscle use. Intubated GASTROINTESTINAL: Abdomen soft, non-tender, large. OG tube MUSCULOSKELETAL: No cyanosis, generalized edema. - Urinary Catheter Management Indwelling Urethral Catheter Cath placed during this visit: yes Reason for continuing: Hourly intake/output Insertion date: 10/31/17 Insertion time: 10:30 <Sharon Sultana - Last Filed: 11/10/17 12:11> - Urinary Catheter Management Indwelling Urethral Catheter Cath placed during this visit: no <Crystal Valadez - Last Filed: 12/21/17 09:30> Assessment and Plan - Assessment (1) Acute kidney injury Code(s): N17.9 - Acute kidney failure, unspecified Status: Acute Plan: Acute kidney injury with a creatinine initially at 1.33 and at day of consult 2.89 NANETTE most likely ATN from hypotension possible vancomycin toxicity with vancomycin level of 30.9. No baseline creatinine available. CT of abdomen with unremarkable kidneys. Urine negative for proteinuria Creatinine 8.73 Remains Anuric Hyperphosphatemia, on PhosLo Monitor strict I+O Avoid IVF Avoid nephrotoxins including aminoglycosides and IV contrast Continue to monitor urinary output, BMP, and watch for renal recovery. Hemodialysis tomorrow will remove fluid as tolerated. Seen by palliative care. Per note, Parents would like to discuss with other family over weekend and make decision Monday re tracheostomy. They appear to be considering withdrawal and asked if they should tell other family members to come visit. Labs in AM <Sharon Sultana - Last Filed: 11/10/17 12:11> - Assessment (1) Acute kidney injury Code(s): N17.9 - Acute kidney failure, unspecified Status: Acute Plan: Patient seen and examined, agree with above. No improvement in the renal function. Family to decide about withdrawal or Tracheostomy. <Crystal Valadez - Last Filed: 12/21/17 09:30>
--- NOTE | 2017-11-10 14:12 | P.PNCC ---
Subjective Subjective Remarks/Hospital Course: 52-year-old male with a past medical history of alcohol dependence who sought medical attention after a friend found him in the hotel room with fever and ill appearance after episode of binge drinking. Patient has multiple bruises and states he has been falling often which he attributes to poor footwear. His primary complaint is pain and tenderness of his sacrum and L4/L5 region. Denies IVDU. Denies CP, SOB, Cough, sputum production, urinary symptoms , abdominal pain, nausea, vomiting, headache, neck pain, neck stiffness. He does report some diarrhea, nonbloody, non melena and difficult to quantify. He says he has "always drank EtOH heavily, but it has been drinking more than usual over the last 2 weeks". He is tremulous, hypertensive, tachycardic with clinical appearance of EtOH withdrawal. ED workup included CT brain which is negative, CT chest with RLL consolidation, CT abd/pelvis with wall thickening c/ w colitis of ascending/transverse colon. WBC 23.5, lactic acid 11.4. In the ED he has received vancomycin, piperacillin/tazobactam, NS 2 L bolus, magnesium sulfate 1 gram IV, Ativan 2 mg IV, Thiamine 100 mg IV, Ofirmev 1 gram IV. 10/31: Remains on norepinephrine drip at 8 mcg/min. Weaning FiO2 and ventilator. Minimal response on the ventilator on propofol and dexmedetomidine drips. MRI of the lumbar spine, sacrum and foot will be performed this afternoon. Noted gram-positive cocci bacteremia. 2D echocardiogram ordered repeat blood cultures today. Currently on vancomycin and piperacillin/ tazobactam. 11/01 Patient is sedated with Diprivan and Fentanyl drips. On Levophed 9 mics. Renal function worse this morning with Cr: 2.89 from 1.95. Afebrile. 11/02 Patient remains intubated and sedated. Renal function continue to decline with Cr: 4.22 from 2.89 with poor UOP. Afebrile. Levophed down 1 jaison. 11/03 Patient remains intubated and sedated on Fentanyl infusion. Afebrile. HD initiated yesterday with removal 2L. Off Levophed. 11/04: Remains intubated sedated encephalopathy. Hemodialysis yesterday and apparently only 1 L was removed creatinine now increased to 5.98. Platelet count 56. Continues to remain oliguric to anuric. 11/05: Remains intubated now sedated with propofol. Tolerating CPAP but not following commands. Lab work is pending today. Precedex will be started to facilitate vent weaning. Continues to have high residuals start Reglan IV. CXR yesterday showed pulmonary edema, will request HD with fluid removal today 11/06 Patient remains intubated and sedated with Precedex and Diprivan infusion. Afebrile. On trickle feeds due to high residuals. s/p HD yesterday with 6L fluid removal. 11/07: No bowel movement times several days. T-max 99.7. Remains on dexmedetomidine at 1 mcg/kg/h and propofol drip at 30 mcg/kg/min. Hemodialysis today 11/08: Afebrile. Remains on dexmedetomidine drip and propofol drip for sedation. -2.5 hemodialysis yesterday. Central line been removed. Small bowel movement yesterday. Will check CT abdomen/pelvis today with oral contrast only. SUBJECTIVE: 11/09: Afebrile. Remains on dexmedetomidine drip and propofol drip. No BM yesterday. Hemodialysis attempt [address] abdomen/pelvis revealed ileus. Will try neostigmine today. Will need tracheostomy. Positive care to help assist with discussions 11/10: Sedated, arousable, orally intubated on mechanical ventilation. On Precedex and propofol drips. Had BM with neostigmine overnight. Tolerating CPAP trial today. Will attempt extubation. Objective Vital Signs / I&O: Vital Signs 11/09/17 14:30 11/09/17 15:00 11/09/17 15:30 Temperature Pulse Rate 70 67 66 Respiratory Rate 20 20 20 Blood Pressure 108/61 115/58 L 117/59 L Pulse Oximetry 93 L 94 L 94 L 11/09/17 16:00 11/09/17 16:30 11/09/17 16:51 Temperature 97.1 F L Pulse Rate 64 66 Respiratory Rate 20 21 21 Blood Pressure 118/61 120/59 L Pulse Oximetry 93 L 94 L 96 11/09/17 16:54 11/09/17 17:00 11/09/17 17:30 Temperature Pulse Rate 64 63 64 Respiratory Rate 21 20 21 Blood Pressure 117/58 L 117/58 L Pulse Oximetry 93 L 93 L 11/09/17 18:00 11/09/17 18:30 11/09/17 19:00 Temperature 97.7 F Pulse Rate 63 63 62 Respiratory Rate 21 21 22 Blood Pressure 100/56 L 100/56 L 100/55 L Pulse Oximetry 93 L 93 L 93 L 11/09/17 19:30 11/09/17 20:00 11/09/17 20:30 Temperature Pulse Rate 61 61 60 Respiratory Rate 20 20 20 Blood Pressure 107/57 L 113/58 L 114/57 L Pulse Oximetry 93 L 94 L 93 L 11/09/17 21:00 11/09/17 21:08 11/09/17 21:30 Temperature Pulse Rate 60 60 60 Respiratory Rate 20 20 20 Blood Pressure 114/58 L 110/57 L Pulse Oximetry 94 L 94 L 94 L 11/09/17 22:00 11/09/17 22:30 11/09/17 23:00 Temperature Pulse Rate 59 L 59 L 59 L Respiratory Rate 20 20 20 Blood Pressure 108/56 L 108/55 L 106/57 L Pulse Oximetry 94 L 94 L 94 L 11/09/17 23:30 11/10/17 00:00 11/10/17 00:30 Temperature Pulse Rate 58 L 57 L 56 L Respiratory Rate 20 20 20 Blood Pressure 90/53 L 90/55 L 92/53 L Pulse Oximetry 93 L 93 L 93 L 11/10/17 00:59 11/10/17 01:00 11/10/17 01:30 Temperature Pulse Rate 56 L 56 L 58 L Respiratory Rate 20 28 H 20 Blood Pressure 94/50 L 96/55 L Pulse Oximetry 92 L 92 L 93 L 11/10/17 02:00 11/10/17 02:30 11/10/17 03:00 Temperature Pulse Rate 58 L 58 L 58 L Respiratory Rate 20 21 20 Blood Pressure 97/56 L 99/57 L 102/58 L Pulse Oximetry 92 L 92 L 92 L 11/10/17 03:30 11/10/17 04:00 11/10/17 04:30 Temperature Pulse Rate 58 L 58 L 58 L Respiratory Rate 22 20 20 Blood Pressure 104/55 L 109/58 L 111/59 L Pulse Oximetry 92 L 93 L 95 11/10/17 04:45 11/10/17 05:00 11/10/17 05:30 Temperature Pulse Rate 58 L 59 L 60 Respiratory Rate 20 22 22 Blood Pressure 108/55 L 106/58 L Pulse Oximetry 96 94 L 94 L 11/10/17 06:00 11/10/17 06:30 11/10/17 07:00 Temperature Pulse Rate 59 L 60 60 Respiratory Rate 20 21 21 Blood Pressure 107/55 L 108/56 L 101/57 L Pulse Oximetry 93 L 94 L 94 L 11/10/17 07:30 11/10/17 07:45 11/10/17 08:00 Temperature 97.5 F L Pulse Rate 59 L 58 L 62 Respiratory Rate 20 30 H 22 Blood Pressure 103/59 L 89/55 L Pulse Oximetry 95 96 11/10/17 08:30 11/10/17 09:00 11/10/17 09:30 Temperature Pulse Rate 64 63 62 Respiratory Rate 21 22 21 Blood Pressure 98/56 L 104/55 L 103/58 L Pulse Oximetry 97 97 96 11/10/17 10:00 11/10/17 10:30 11/10/17 11:00 Temperature Pulse Rate 61 61 60 Respiratory Rate 22 16 15 Blood Pressure 104/58 L 102/56 L 101/56 L Pulse Oximetry 97 97 97 11/10/17 11:30 11/10/17 11:58 11/10/17 12:00 Temperature Pulse Rate 60 58 L 59 L Respiratory Rate 15 16 17 Blood Pressure 102/58 L 101/57 L Pulse Oximetry 97 97 100 11/10/17 12:30 11/10/17 13:00 Temperature 98.7 F Pulse Rate 61 60 Respiratory Rate 14 12 Blood Pressure 101/55 L 99/55 L Pulse Oximetry 96 97 Intake & Output 11/09/17 11/10/17 11/10/17 18:59 06:59 18:59 Intake Total 1105 / 1105 906 / 906 450 / 450 Output Total 7600 / 7600 0 / 0 Balance -6495 / -6495 906 / 906 450 / 450 Weight 137.5 kg Intake: IV 1050 / 1050 700 / 700 450 / 450 Precedex Inj 1,000 MCG In NS 250 / 250 500 / 500 250 / 250 Inj 240 ML @ 0.2 MCG/KG/HR 7 mls/hr IV.CONT TITRATE PRN Rx#: [id number] Diprivan 1000 mg/100 ml Inj 1, 500 / 500 200 / 200 200 / 200 000 mg In 100 ml @ 5 MCG/KG/MIN 3.81 mls/hr IV.CONT TITRATE PRN Rx#:[id number] Flexbumin 25% Inj 100 ML @ 60 200 / 200 mls/hr IV.SIG WITH DIALYSIS PRN Rx#:[id number] Ancef Inj 1,000 MG In NS Inj 100 / 100 100 ML @ 200 mls/hr IV.SIG Q24H AMADEO Rx#:[id number] Tube Feeding 55 / 55 106 / 106 Water Bolus Amount 100 / 100 Output: Urine 0 / 0 0 / 0 Hemodialysis Amount 7600 / 7600 Other: Date of Last Bowel Movement 11/09/17 # Incontinent Bowel Movements 1 Result Diagrams: 11/10/17 10:30 11/10/17 10:30 Imaging: Impressions Abdomen/Pelvis CT 11/08/17 00:00 CONCLUSION: 1. Nonspecific, nonobstructive bowel gas pattern most consistent with an ileus and/or gastroenteritis. There is a small amount of ascitic fluid. The study was performed without intravenous or oral contrast. 2. Consolidation now noted in both lung bases with small effusions left greater than right. 3. Multiple calcified gallstones again noted. 4. Small gas bubble in the bladder likely due to recent instrumentation. Chest X-Ray 11/09/17 06:00 CONCLUSION: Stable exam. Chest X-Ray 11/10/17 06:00 CONCLUSION: Stable chest x-ray with left pleural effusion with associated airspace consolidation. There is also mild consolidation versus atelectasis at the right base. Objective Remarks: GENERAL: Patient is 52 yo intubated and sedated with propofol and dexmedetomidine drip SKIN: Warm and dry. HEAD: Normocephalic. EYES: Pupils are round 1 mm bilaterally and brisk. + scleral icterus and edema. NECK: Supple, trachea midline. No JVD or lymphadenopathy. CARDIOVASCULAR: Tachycardic, RR. S1, S2 no S4. Without murmur, gallops, or rubs. RESPIRATORY: Breath sounds appreciated anteriorly with few bibasilar crackles. GASTROINTESTINAL: Abdomen soft, non-tender, nondistended. Hypoactive bowel sounds appreciated. MUSCULOSKELETAL: No significant peripheral edema. Neuro: Intubated, sedated. Partially opens eyes moves extremities, did not follow commands Assessment and Plan - Assessment and Plan Plan: NEURO/PSYCH: Delirium tremens Acute toxic metabolic encephalopathy EtOH dependence CT brain 10/30- for acute intracranial abnormality On propofol at 50 m/kg/min for sedation and vent synchrony. Dexmedetomidine 0.9 mcg/kg/h to facilitate vent weaning Continue thiamine/folic acid/multivitamin. Lorazepam discontinued for 0 protocol 10/31 EEG: Encephalopathy, no epileptiform activity. Acetaminophen 650 mg p.o. every 8 hours as needed fever ETOH - 147 on admission RESP: Acute respiratory failure Aspiration pneumonia Intubated 10/31 for airway protection. PRVC 20 TV 550, IT:1.0, PEEP:5, FIO2: 50% Ventilator bundle, daily CPAP trials. Will attempt extubation if tolerating CPAP trial today. Albuterol/ipratropium aerosols every 4 hours with albuterol aerosols every 2 hours as needed CV: Fluid overload/pulmonary edema Lactic acidemia- resolved Elevated troponin likely type II non-STEMI Off Levophed monitor HR and BP keep MAP>65mmHg Lactic acid cleared 1.0 Echo showed EF 65-70% Monitor trop (trending down). on stress dose stress steroids- HC 25ml IV q12 continue to wean stop date GI: Right/transverse mild colitis/acute Alcoholic hepatitis Hepatic steatosis Hepatosplenomegaly. Liver is 25 cm. Cholelithiasis Hyperammonia Elevated total bilirubin On Lactulose 30ml QID and rifaximin 550 twice daily for elevated ammonia, currently less than 10 Continue tube feeds Nepro @10ml/hr with goal rate 40ml/hr CT abdomen and pelvis demonstrates thickening of right colon extending into transverse colon. There is hepatomegaly and steatosis. On metoclopramide 5 mg every 8 hours for prokinetic agent Docusate serum/senna twice daily, polythene glycol 17 g twice daily, lactulose 4 times daily, mineral oil 30 cc 1 and enema/manual disimpaction. 11/08 CT abdomen/pelvis revealed ileus. No signs of bowel obstruction. Small ascites. Left lower lobe effusion. neostigmine 2 mg IV 1 with atropine at bedside FEN/RENAL: Acute kidney failure No hydronephrosis on CT abdomen/pelvis. Monitor renal function, I/O's, avoid nephrotoxins Renal is following- Dr. Valadez. HD initiated 11/02 with removal 2L. 6L removed 11/05. 2.5 L removed 8/7. Pending . Attempt 4 L ID: Group A beta Strep bacteremia 07/05 bilaterally Cellulitis toes bilaterally Leukocytosis...trending down He received piperacillin/tazobactam and vancomycin in the emergency department. Blood culture x 2 10/30 -gram-positive cocci/strep pyogenes - BC 11/01: NGTD Sputum 11/04: NGTD Sputum 10/31 -Strep Pyogenes C diff negative urine pneumococcal antigen, urine Legionella antigen, influenza a and B- all negative Infectious disease is following- Dr. Segovia Abx per ID (cefazolin) monitor for signs of infections ( Fever, WBC) MRI foot: No abscess, HEME: Acute coagulopathy DIC Leukocytosis Macrocytic anemia Thrombocytopenia Monitor coags/CBC/platelets. There is no significant active bleeding at this time, Monitor CBC. coags. s/p 2u FFP 11/02 for vascath placement ENDO: Acute hyperglycemia ? undiagnosed diabetes mellitus. Sliding-scale insulin with aspart insulin with Accu-Cheks every 6 hours to maintain euglycemia/medium regimen MSK: L5/S1 disc protrusion Pars defect L4/L5 Not a candidate for surgical intervention at this time per Dr. King consult PROPH: SCDs for DVT prophylaxis. Avoid pharmacologic DVT prophylaxis at this time due to coagulopathy, thrombocytopenia. Lansoprazole for stress ulcer prophylaxis ACCESS: Right IJ central venous line placed 10/31. Discontinue 11/07. Left radial arterial line placed 11/01. Left IJ vascath placed 11/02 CCT 30 mins
--- NOTE | 2017-11-10 19:52 | P.PNID ---
Subjective Remarks: On HD remains ANuric extubated, on NC O2 no fever + diarrhea Marked leukocytosis with WBC today up to 26 K Antibiotics: cefazolin Past Medical History: ETOH Allergies/Adverse Reactions: Allergies No Known Allergies Allergy (Unverified 10/30/17 17:35) Objective Vital Signs 11/09/17 20:00 11/09/17 20:30 11/09/17 21:00 Temperature Pulse Rate 61 60 60 Respiratory Rate 20 20 20 Blood Pressure 113/58 L 114/57 L 114/58 L Pulse Oximetry 94 L 93 L 94 L 11/09/17 21:08 11/09/17 21:30 11/09/17 22:00 Temperature Pulse Rate 60 60 59 L Respiratory Rate 20 20 20 Blood Pressure 110/57 L 108/56 L Pulse Oximetry 94 L 94 L 94 L 11/09/17 22:30 11/09/17 23:00 11/09/17 23:30 Temperature Pulse Rate 59 L 59 L 58 L Respiratory Rate 20 20 20 Blood Pressure 108/55 L 106/57 L 90/53 L Pulse Oximetry 94 L 94 L 93 L 11/10/17 00:00 11/10/17 00:30 11/10/17 00:59 Temperature Pulse Rate 57 L 56 L 56 L Respiratory Rate 20 20 20 Blood Pressure 90/55 L 92/53 L Pulse Oximetry 93 L 93 L 92 L 11/10/17 01:00 11/10/17 01:30 11/10/17 02:00 Temperature Pulse Rate 56 L 58 L 58 L Respiratory Rate 28 H 20 20 Blood Pressure 94/50 L 96/55 L 97/56 L Pulse Oximetry 92 L 93 L 92 L 11/10/17 02:30 11/10/17 03:00 11/10/17 03:30 Temperature Pulse Rate 58 L 58 L 58 L Respiratory Rate 21 20 22 Blood Pressure 99/57 L 102/58 L 104/55 L Pulse Oximetry 92 L 92 L 92 L 11/10/17 04:00 11/10/17 04:30 11/10/17 04:45 Temperature Pulse Rate 58 L 58 L 58 L Respiratory Rate 20 20 20 Blood Pressure 109/58 L 111/59 L Pulse Oximetry 93 L 95 96 11/10/17 05:00 11/10/17 05:30 11/10/17 06:00 Temperature Pulse Rate 59 L 60 59 L Respiratory Rate 22 22 20 Blood Pressure 108/55 L 106/58 L 107/55 L Pulse Oximetry 94 L 94 L 93 L 11/10/17 06:30 11/10/17 07:00 11/10/17 07:30 Temperature Pulse Rate 60 60 59 L Respiratory Rate 21 21 20 Blood Pressure 108/56 L 101/57 L 103/59 L Pulse Oximetry 94 L 94 L 95 11/10/17 07:45 11/10/17 08:00 11/10/17 08:30 Temperature 97.5 F L Pulse Rate 58 L 62 64 Respiratory Rate 30 H 22 21 Blood Pressure 89/55 L 98/56 L Pulse Oximetry 96 97 11/10/17 09:00 11/10/17 09:30 11/10/17 10:00 Temperature Pulse Rate 63 62 61 Respiratory Rate 22 21 22 Blood Pressure 104/55 L 103/58 L 104/58 L Pulse Oximetry 97 96 97 11/10/17 10:30 11/10/17 11:00 11/10/17 11:30 Temperature Pulse Rate 61 60 60 Respiratory Rate 16 15 15 Blood Pressure 102/56 L 101/56 L 102/58 L Pulse Oximetry 97 97 97 11/10/17 11:58 11/10/17 12:00 11/10/17 12:30 Temperature 98.7 F Pulse Rate 58 L 59 L 61 Respiratory Rate 16 17 14 Blood Pressure 101/57 L 101/55 L Pulse Oximetry 97 100 96 11/10/17 13:00 11/10/17 13:30 11/10/17 14:00 Temperature Pulse Rate 60 60 63 Respiratory Rate 12 15 21 Blood Pressure 99/55 L 99/54 L 104/58 L Pulse Oximetry 97 96 97 11/10/17 14:13 11/10/17 14:30 11/10/17 14:39 Temperature Pulse Rate 67 66 Respiratory Rate 15 22 Blood Pressure 111/62 Pulse Oximetry 94 L 98 11/10/17 15:00 11/10/17 15:30 11/10/17 16:00 Temperature Pulse Rate 69 70 71 Respiratory Rate 17 17 16 Blood Pressure 118/67 113/63 121/67 Pulse Oximetry 99 95 97 11/10/17 16:30 11/10/17 17:00 11/10/17 17:30 Temperature Pulse Rate 72 75 73 Respiratory Rate 15 19 17 Blood Pressure 123/65 125/75 127/67 Pulse Oximetry 97 95 97 11/10/17 18:00 Temperature Pulse Rate 74 Respiratory Rate 16 Blood Pressure 120/70 Pulse Oximetry 97 Intake & Output 11/10/17 11/10/17 11/11/17 06:59 18:59 06:59 Intake Total 906 / 906 796 / 796 Output Total 0 / 0 0 / 0 Balance 906 / 906 796 / 796 Weight 137.5 kg Intake: IV 700 / 700 620 / 620 Precedex Inj 1,000 MCG In NS 500 / 500 250 / 250 Inj 240 ML @ 0.2 MCG/KG/HR 7 mls/hr IV.CONT TITRATE PRN Rx#: [id number] Diprivan 1000 mg/100 ml Inj 1, 200 / 200 270 / 270 000 mg In 100 ml @ 5 MCG/KG/MIN 3.81 mls/hr IV.CONT TITRATE PRN Rx#:[id number] Ancef Inj 1,000 MG In NS Inj 100 / 100 100 ML @ 200 mls/hr IV.SIG Q24H AMADEO Rx#:[id number] Tube Feeding 106 / 106 56 / 56 Water Bolus Amount 100 / 100 120 / 120 Output: Urine 0 / 0 0 / 0 Other: Date of Last Bowel Movement 11/10/17 # Incontinent Bowel Movements 3 Lab - Hematology Results 11/09/17 11/10/17 07:57 10:30 WBC 24.1 H 26.8 H RBC 3.47 L 3.18 L Hgb 12.0 L 11.1 L Hct 34.9 L 32.2 L MCV 100.8 H 101.0 H MCH 34.7 H 34.7 H MCHC 34.5 34.4 RDW 15.1 15.2 Plt Count 66 L 64 L MPV 10.6 10.3 Prelim Diff (Auto) Slide review pending Slide review pending Neut % (Auto) 91.4 H 88.6 H Lymph % (Auto) 3.6 L 5.4 L Dickens % (Auto) 4.2 4.8 Eos % (Auto) 0.4 0.3 Baso % (Auto) 0.4 0.9 Neut # (Auto) 22.0 H 23.7 H Lymph # (Auto) 0.9 L 1.4 Dickens # (Auto) 1.0 H 1.3 H Eos # (Auto) 0.1 0.1 Baso # (Auto) 0.1 0.2 WBC Differential Manual diff final Manual diff final Seg Neuts % (Manual) 86 H 88 H Band Neuts % (Manual) 4 1 Lymphocytes % (Manual) 3 L 4 L Monocytes % (Manual) 5 4 Eosinophils % (Manual) 1 1 Metamyelocytes % (Man) 1 1 Myelocytes % (Man) 1 H Abs Neuts (Manual) 21.9 H 24.4 H Differential Comment . . Toxic Granulation 1+ H 1+ H Platelet Estimate Low L Low L Platelet Morphology Normal Enlarged H Lab - Chemistry Results 11/08/17 11/09/17 11/09/17 23:15 05:06 07:57 Sodium 137 Potassium 5.5 H Chloride 100 Carbon Dioxide 18.7 L Anion Gap 18 H BUN 113 H Creatinine 10.08 H* D Estimated GFR 5 L POC Glucose 119 H 137 H Random Glucose 128 H Lactic Acid Calcium 7.6 L Phosphorus 11.0 H D Magnesium 3.1 H Total Bilirubin 9.9 H AST 129 H ALT 77 Alkaline Phosphatase 170 H Ammonia Total Protein 7.2 Albumin 2.2 L Amylase 152 H Lipase 2245 H 11/09/17 11/09/17 11/09/17 07:57 11:40 17:30 Sodium Potassium Chloride Carbon Dioxide Anion Gap BUN Creatinine Estimated GFR POC Glucose 111 H 130 H Random Glucose Lactic Acid 1.2 Calcium Phosphorus Magnesium Total Bilirubin AST ALT Alkaline Phosphatase Ammonia Total Protein Albumin Amylase Lipase 11/09/17 11/10/17 11/10/17 23:10 05:11 10:30 Sodium 136 Potassium 5.3 H Chloride 98 Carbon Dioxide 20.0 L Anion Gap 18 H BUN 83 H Creatinine 8.73 H Estimated GFR 6 L POC Glucose 114 H 135 H Random Glucose 113 H Lactic Acid Calcium 8.1 L Phosphorus 10.2 H Magnesium 2.9 H Total Bilirubin 10.1 H AST 154 H ALT 68 Alkaline Phosphatase 186 H Ammonia Total Protein 7.8 D Albumin 2.5 L Amylase Lipase 2172 H 11/10/17 11/10/17 11/10/17 10:30 10:30 11:26 Sodium Potassium Chloride Carbon Dioxide Anion Gap BUN Creatinine Estimated GFR POC Glucose 112 H Random Glucose Lactic Acid 1.4 Calcium Phosphorus Magnesium Total Bilirubin AST ALT Alkaline Phosphatase Ammonia 28 Total Protein Albumin Amylase Lipase 11/10/17 17:13 Sodium Potassium Chloride Carbon Dioxide Anion Gap BUN Creatinine Estimated GFR POC Glucose 86 Random Glucose Lactic Acid Calcium Phosphorus Magnesium Total Bilirubin AST ALT Alkaline Phosphatase Ammonia Total Protein Albumin Amylase Lipase Imaging: ITS Impressions Head CT 10/30/17 17:35 CONCLUSION: 1. No acute intracranial abnormalities. . Chest CTA 10/30/17 19:02 CONCLUSION: 1. Suboptimal bolus but no evidence for central pulmonary emboli. 2. Patchy airspace consolidation right lung base most characteristic of pneumonia. No significant effusion. Foot X-Ray 10/30/17 21:27 CONCLUSION: No acute findings. Moderate degenerative change. Bone spurs posterior calcaneus. Lumbar Spine CT 10/30/17 21:43 CONCLUSION: 1. No acute fracture. 2. 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 3. At L5-S1 there is a small central disc protrusion. Mild bilateral foraminal encroachment. Thoracic Spine CT 10/30/17 21:43 CONCLUSION: 1. Negative for acute traumatic injury to the thoracic spine. Small Schmorl's nodes in the lower thoracic spine. Foot MRI 10/31/17 00:00 CONCLUSION: 1. Lumbar Spine MRI 10/31/17 00:00 CONCLUSION: Extruded disc fragment with a donor site at L4-L5 lying posterior to the L4 vertebral body severe right-sided and moderate left-sided foraminal narrowing. There is no evidence of abscess. Sacrum/Coccyx MRI 10/31/17 00:00 CONCLUSION: 1. Negative MRI of the sacrum Abdomen X-Ray 11/07/17 00:00 CONCLUSION: NG tip in stomach. No free air. Abdomen/Pelvis CT 11/08/17 00:00 CONCLUSION: 1. Nonspecific, nonobstructive bowel gas pattern most consistent with an ileus and/or gastroenteritis. There is a small amount of ascitic fluid. The study was performed without intravenous or oral contrast. 2. Consolidation now noted in both lung bases with small effusions left greater than right. 3. Multiple calcified gallstones again noted. 4. Small gas bubble in the bladder likely due to recent instrumentation. Chest X-Ray 11/10/17 06:00 CONCLUSION: Stable chest x-ray with left pleural effusion with associated airspace consolidation. There is also mild consolidation versus atelectasis at the right base. Physical Exam: GENERAL: sedated intubated SKIN: Warm and dry. Jaundiced HEAD: Atraumatic. Normocephalic. EYES: Pupils equal and round. Slight scleral icterus. No injection or drainage. ENT: No nasal bleeding or discharge. Mucous membranes dry NECK: Trachea midline. No JVD. CARDIOVASCULAR: Regular rate and rhythm. RESPIRATORY: No accessory muscle use. rhonchi to auscultation. Breath sounds equal bilaterally. GASTROINTESTINAL: Abdomen soft, tender, quite distended. Hepatic and splenic margins not palpable. : a nuric MUSCULOSKELETAL: Extremities without clubbing, cyanosis, or edema. No obvious deformities. NEUROLOGICAL:responsive, though lethargic. Very confused follows simple commands PSYCHIATRIC: unable to assess Assessment and Plan - Plan GAS sepsis ? source MSSA sepsis - PNA is most likely - 2 D echo neg for veg's - CXR looks worse Acute VDRF Acute ETOH withdrawl Lactic acidosis ARF, now on HD: from ATN ABd distention - KUB [place] Liver failure with DIC and probable hepatorenal sd Hyperbilirubinemia: worse diarrhea - c.diff negative leukocytosis, leukemoid reaction cont cefazolin (that will cover both MSSA and GAS) repeat BC rechk C.diff monitor WBC ebenezerRN Deonte
[2017-11-10] MEDS ORDERED: Labetalol HCl Inj 100 MG/20 ML Vial IV.PUSH PRN (23:24)
[2017-11-10] MEDS ORDERED: niCARdipine Inj 25 MG in Sodium Chlor 0.9% Inj 240 ML IV.CONT PRN (23:25)
[2017-11-11] MEDS: Oral Hygiene Kit OROPHARYNG SCH ×5 (00:52→23:27)
[2017-11-11] MEDS: Insulin NovoLOG Aspart Correctional Sugar Inj SQ SCH ×3 (00:53→23:26)
[2017-11-11] MEDS: Dexmedetomidine Inj 1,000 MCG in Sodium Chlor 0.9% Inj 240 ML IV.CONT PRN ×2 (04:12→12:26)
[2017-11-11 07:15] LABS: Albumin 2.6 g/dL (3.4-5.0); Calcium 7.7 mg/dL (8.5-10.1); Carbon Dioxide 18.7 meq/L (21.0-32.0); Potassium 5.3 meq/L (3.5-5.1)
[2017-11-11 07:20] LABS: Phosphorus 9.7 mg/dL (2.5-4.9)
[2017-11-11] MEDS: Heparin 10,000 UNITS/10 ML Vial (for IV use) OTHER PRN (08:42)
[2017-11-11] MEDS: Albumin Human 25% Inj 100 ML IV.SIG PRN (09:24)
[2017-11-11] MEDS: Hypromellose 0.3% Opth Gel 10 GM Bottle EACH EYE SCH ×2 (11:51→21:05)
[2017-11-11] MEDS: Mupirocin 2% Nasal Oint Topical Syringe EACH NARE SCH ×2 (11:51→21:04)
[2017-11-11] MEDS: Calcium Acetate 667 MG Capsule PO SCH ×3 (11:51→17:23)
[2017-11-11] MEDS: Chlorhexidine 0.12% Oral Kit 15 ML UDC OROPHARYNG SCH ×2 (11:51→21:06)
[2017-11-11] MEDS: Polyethylene Glycol 3350 17 GM Packet PO SCH ×2 (11:52→21:04)
[2017-11-11] MEDS: Senna/Docusate Sodium 8.6/50 MG Tablet PO SCH ×2 (11:52→21:04)
[2017-11-11] MEDS: rifAXIMin 550 MG Tablet PO SCH ×2 (11:52→21:04)
--- NOTE | 2017-11-11 12:18 | P.PNCC ---
Subjective Subjective Remarks/Hospital Course: 52-year-old male with a past medical history of alcohol dependence who sought medical attention after a friend found him in the hotel room with fever and ill appearance after episode of binge drinking. Patient has multiple bruises and states he has been falling often which he attributes to poor footwear. His primary complaint is pain and tenderness of his sacrum and L4/L5 region. Denies IVDU. Denies CP, SOB, Cough, sputum production, urinary symptoms , abdominal pain, nausea, vomiting, headache, neck pain, neck stiffness. He does report some diarrhea, nonbloody, non melena and difficult to quantify. He says he has "always drank EtOH heavily, but it has been drinking more than usual over the last 2 weeks". He is tremulous, hypertensive, tachycardic with clinical appearance of EtOH withdrawal. ED workup included CT brain which is negative, CT chest with RLL consolidation, CT abd/pelvis with wall thickening c/ w colitis of ascending/transverse colon. WBC 23.5, lactic acid 11.4. In the ED he has received vancomycin, piperacillin/tazobactam, NS 2 L bolus, magnesium sulfate 1 gram IV, Ativan 2 mg IV, Thiamine 100 mg IV, Ofirmev 1 gram IV. 10/31: Remains on norepinephrine drip at 8 mcg/min. Weaning FiO2 and ventilator. Minimal response on the ventilator on propofol and dexmedetomidine drips. MRI of the lumbar spine, sacrum and foot will be performed this afternoon. Noted gram-positive cocci bacteremia. 2D echocardiogram ordered repeat blood cultures today. Currently on vancomycin and piperacillin/ tazobactam. 11/01 Patient is sedated with Diprivan and Fentanyl drips. On Levophed 9 mics. Renal function worse this morning with Cr: 2.89 from 1.95. Afebrile. 11/02 Patient remains intubated and sedated. Renal function continue to decline with Cr: 4.22 from 2.89 with poor UOP. Afebrile. Levophed down 1 jaison. 11/03 Patient remains intubated and sedated on Fentanyl infusion. Afebrile. HD initiated yesterday with removal 2L. Off Levophed. 11/04: Remains intubated sedated encephalopathy. Hemodialysis yesterday and apparently only 1 L was removed creatinine now increased to 5.98. Platelet count 56. Continues to remain oliguric to anuric. 11/05: Remains intubated now sedated with propofol. Tolerating CPAP but not following commands. Lab work is pending today. Precedex will be started to facilitate vent weaning. Continues to have high residuals start Reglan IV. CXR yesterday showed pulmonary edema, will request HD with fluid removal today 11/06 Patient remains intubated and sedated with Precedex and Diprivan infusion. Afebrile. On trickle feeds due to high residuals. s/p HD yesterday with 6L fluid removal. 11/07: No bowel movement times several days. T-max 99.7. Remains on dexmedetomidine at 1 mcg/kg/h and propofol drip at 30 mcg/kg/min. Hemodialysis today 11/08: Afebrile. Remains on dexmedetomidine drip and propofol drip for sedation. -2.5 hemodialysis yesterday. Central line been removed. Small bowel movement yesterday. Will check CT abdomen/pelvis today with oral contrast only. SUBJECTIVE: 11/09: Afebrile. Remains on dexmedetomidine drip and propofol drip. No BM yesterday. Hemodialysis attempt [address] abdomen/pelvis revealed ileus. Will try neostigmine today. Will need tracheostomy. Positive care to help assist with discussions 11/10: Sedated, arousable, orally intubated on mechanical ventilation. On Precedex and propofol drips. Had BM with neostigmine overnight. Tolerating CPAP trial today. Will attempt extubation. 11/11: Extubated yesterday, awake and alert. Was dialyzed today. Leukocytosis noted. Dr. Segovia following. Objective Vital Signs / I&O: Vital Signs 11/10/17 12:30 11/10/17 13:00 11/10/17 13:30 Temperature 98.7 F Pulse Rate 61 60 60 Respiratory Rate 14 12 15 Blood Pressure 101/55 L 99/55 L 99/54 L Pulse Oximetry 96 97 96 11/10/17 14:00 11/10/17 14:13 11/10/17 14:30 Temperature Pulse Rate 63 67 Respiratory Rate 21 15 Blood Pressure 104/58 L 111/62 Pulse Oximetry 97 94 L 98 11/10/17 14:39 11/10/17 15:00 11/10/17 15:30 Temperature Pulse Rate 66 69 70 Respiratory Rate 22 17 17 Blood Pressure 118/67 113/63 Pulse Oximetry 99 95 11/10/17 16:00 11/10/17 16:30 11/10/17 17:00 Temperature Pulse Rate 71 72 75 Respiratory Rate 16 15 19 Blood Pressure 121/67 123/65 125/75 Pulse Oximetry 97 97 95 11/10/17 17:30 11/10/17 18:00 11/10/17 20:00 Temperature 97.8 F Pulse Rate 73 74 82 Respiratory Rate 17 16 18 Blood Pressure 127/67 120/70 151/84 H Pulse Oximetry 97 97 95 11/10/17 21:36 11/10/17 21:37 11/10/17 22:00 Temperature Pulse Rate 90 94 H Respiratory Rate 21 Blood Pressure Pulse Oximetry 98 11/11/17 00:00 11/11/17 01:17 11/11/17 02:00 Temperature Pulse Rate 94 H 93 H 93 H Respiratory Rate 18 17 Blood Pressure 146/77 H Pulse Oximetry 95 95 11/11/17 04:00 11/11/17 05:36 11/11/17 06:00 Temperature 97.9 F Pulse Rate 88 87 88 Respiratory Rate 20 18 Blood Pressure 138/81 Pulse Oximetry 95 11/11/17 08:46 Temperature Pulse Rate 80 Respiratory Rate 23 Blood Pressure Pulse Oximetry 95 Intake & Output 11/10/17 11/11/17 11/11/17 18:59 06:59 18:59 Intake Total 796 / 796 500 / 500 100 / 100 Output Total 0 / 0 0 / 0 4000 / 4000 Balance 796 / 796 500 / 500 -3900 / -3900 Weight 136.5 kg Intake: IV 620 / 620 500 / 500 100 / 100 Precedex Inj 1,000 MCG In NS 250 / 250 500 / 500 Inj 240 ML @ 0.2 MCG/KG/HR 7 mls/hr IV.CONT TITRATE PRN Rx#: [id number] Diprivan 1000 mg/100 ml Inj 1, 270 / 270 000 mg In 100 ml @ 5 MCG/KG/MIN 3.81 mls/hr IV.CONT TITRATE PRN Rx#:[id number] Flexbumin 25% Inj 100 ML @ 60 100 / 100 mls/hr IV.SIG WITH DIALYSIS PRN Rx#:[id number] Ancef Inj 1,000 MG In NS Inj 100 / 100 100 ML @ 200 mls/hr IV.SIG Q24H AMADEO Rx#:[id number] Oral 0 / 0 Oral Supplement 0 / 0 Tube Feeding 56 / 56 0 / 0 Tube Irrigant 0 / 0 Water Bolus Amount 120 / 120 0 / 0 Output: Urine 0 / 0 0 / 0 Hemodialysis Amount 4000 / 4000 Other: # Voids 0 Date of Last Bowel Movement 11/10/17 11/10/17 # Incontinent Bowel Movements 3 2 Result Diagrams: 11/10/17 10:30 11/11/17 04:53 Objective Remarks: GENERAL: Middle-aged male laying in bed slightly tachypneic on facemask O2. SKIN: Warm and dry. HEAD: Normocephalic. EYES: Positive pallor,. + scleral icterus and edema. NECK: Supple, trachea midline. No JVD or lymphadenopathy. CARDIOVASCULAR: S1-S2 regular, without murmur, gallops, or rubs. RESPIRATORY: Breath sounds appreciated anteriorly with few bibasilar crackles. GASTROINTESTINAL: Abdomen soft, non-tender, nondistended. Hypoactive bowel sounds appreciated. MUSCULOSKELETAL: No significant peripheral edema. Neuro: Drowsy, easily arousable, moving all 4 extremities. Verbalizes at times however disoriented Assessment and Plan - Assessment and Plan Plan: NEURO/PSYCH: Delirium tremens Acute toxic metabolic encephalopathy EtOH dependence CT brain 10/30- for acute intracranial abnormality Dexmedetomidine gtt for delirium, avoid benzodiazepines if possible as well as narcotics Continue thiamine/folic acid/multivitamin. Lorazepam discontinued for CIWA protocol 10/31 EEG: Encephalopathy, no epileptiform activity. Acetaminophen 650 mg p.o. every 8 hours as needed fever ETOH - 147 on admission RESP: Acute respiratory failure Aspiration pneumonia Intubated 10/31 for airway protection. Extubated on 11/10 following CPAP trial. Continue supplemental O2. Albuterol/ipratropium aerosols every 4 hours with albuterol aerosols every 2 hours as needed CV: Fluid overload/pulmonary edema Lactic acidemia- resolved Elevated troponin likely type II non-STEMI Off Levophed monitor HR and BP keep MAP>65mmHg Lactic acid cleared 1.0 Echo showed EF 65-70% Monitor trop (trending down). on stress dose stress steroids- HC 25ml IV q12 continue to wean stop date GI: Right/transverse mild colitis/acute Alcoholic hepatitis Hepatic steatosis Hepatosplenomegaly. Liver is 25 cm. Cholelithiasis Hyperammonia Elevated total bilirubin On Lactulose 30ml QID and rifaximin 550 twice daily for elevated ammonia, currently less than 10 Tube feeds via NG tube as tolerated with Nepro CT abdomen and pelvis demonstrates thickening of right colon extending into transverse colon. There is hepatomegaly and steatosis. On metoclopramide 5 mg every 8 hours for prokinetic agent Docusate serum/senna twice daily, polythene glycol 17 g twice daily, lactulose 4 times daily, mineral oil 30 cc 1 and enema/manual disimpaction. 11/08 CT abdomen/pelvis revealed ileus. No signs of bowel obstruction. Small ascites. Left lower lobe effusion. neostigmine 2 mg IV 1 with atropine at bedside FEN/RENAL: Acute kidney failure No hydronephrosis on CT abdomen/pelvis. Monitor renal function, I/O's, avoid nephrotoxins Renal is following- Dr. Valadez. HD initiated 11/02. Dialyzed on 11/11 ID: Group A beta Strep bacteremia 07/05 bilaterally Cellulitis toes bilaterally Leukocytosis...trending down He received piperacillin/tazobactam and vancomycin in the emergency department. Blood culture x 2 10/30 -gram-positive cocci/strep pyogenes - BC 11/01: NGTD Sputum 11/04: NGTD Sputum 10/31 -Strep Pyogenes C diff negative urine pneumococcal antigen, urine Legionella antigen, influenza a and B- all negative Infectious disease is following- Dr. Segovia Abx per ID (cefazolin) monitor for signs of infections ( Fever, WBC) MRI foot: No abscess, HEME: Acute coagulopathy DIC Leukocytosis Macrocytic anemia Thrombocytopenia Monitor coags/CBC/platelets. There is no significant active bleeding at this time, Monitor CBC. coags. s/p 2u FFP 11/02 for vascath placement ENDO: Acute hyperglycemia ? undiagnosed diabetes mellitus. Sliding-scale insulin with aspart insulin with Accu-Cheks every 6 hours to maintain euglycemia/medium regimen MSK: L5/S1 disc protrusion Pars defect L4/L5 Not a candidate for surgical intervention at this time per Dr. King consult PROPH: SCDs for DVT prophylaxis. Avoid pharmacologic DVT prophylaxis at this time due to coagulopathy, thrombocytopenia. Lansoprazole for stress ulcer prophylaxis ACCESS: Right IJ central venous line placed 10/31. Discontinue 11/07. Left radial arterial line placed 11/01. Left IJ vascath placed 11/02
--- NOTE | 2017-11-11 13:55 | P.PNNP ---
Subjective Interval history: patient was seen during dialysis. He is anuric. UF goal is 4L, on 2K, BFR is 350 ml/min. Physical Exam Vital signs: Vital Signs 11/10/17 14:00 11/10/17 14:13 11/10/17 14:30 Temperature Pulse Rate 63 67 Respiratory Rate 21 15 Blood Pressure 104/58 L 111/62 Pulse Oximetry 97 94 L 98 11/10/17 14:39 11/10/17 15:00 11/10/17 15:30 Temperature Pulse Rate 66 69 70 Respiratory Rate 22 17 17 Blood Pressure 118/67 113/63 Pulse Oximetry 99 95 11/10/17 16:00 11/10/17 16:30 11/10/17 17:00 Temperature Pulse Rate 71 72 75 Respiratory Rate 16 15 19 Blood Pressure 121/67 123/65 125/75 Pulse Oximetry 97 97 95 11/10/17 17:30 11/10/17 18:00 11/10/17 20:00 Temperature 97.8 F Pulse Rate 73 74 82 Respiratory Rate 17 16 18 Blood Pressure 127/67 120/70 151/84 H Pulse Oximetry 97 97 95 11/10/17 21:36 11/10/17 21:37 11/10/17 22:00 Temperature Pulse Rate 90 94 H Respiratory Rate 21 Blood Pressure Pulse Oximetry 98 11/11/17 00:00 11/11/17 01:17 11/11/17 02:00 Temperature Pulse Rate 94 H 93 H 93 H Respiratory Rate 18 17 Blood Pressure 146/77 H Pulse Oximetry 95 95 11/11/17 04:00 11/11/17 05:36 11/11/17 06:00 Temperature 97.9 F Pulse Rate 88 87 88 Respiratory Rate 20 18 Blood Pressure 138/81 Pulse Oximetry 95 11/11/17 08:46 Temperature Pulse Rate 80 Respiratory Rate 23 Blood Pressure Pulse Oximetry 95 Intake & Output 11/10/17 11/11/17 11/11/17 18:59 06:59 18:59 Intake Total 796 / 796 500 / 500 350 / 350 Output Total 0 / 0 0 / 0 4000 / 4000 Balance 796 / 796 500 / 500 -3650 / -3650 Weight 136.5 kg Intake: IV 620 / 620 500 / 500 350 / 350 Precedex Inj 1,000 MCG In NS 250 / 250 500 / 500 250 / 250 Inj 240 ML @ 0.2 MCG/KG/HR 7 mls/hr IV.CONT TITRATE PRN Rx#: [id number] Diprivan 1000 mg/100 ml Inj 1, 270 / 270 000 mg In 100 ml @ 5 MCG/KG/MIN 3.81 mls/hr IV.CONT TITRATE PRN Rx#:[id number] Flexbumin 25% Inj 100 ML @ 60 100 / 100 mls/hr IV.SIG WITH DIALYSIS PRN Rx#:[id number] Ancef Inj 1,000 MG In NS Inj 100 / 100 100 ML @ 200 mls/hr IV.SIG Q24H AMADEO Rx#:[id number] Oral 0 / 0 Oral Supplement 0 / 0 Tube Feeding 56 / 56 0 / 0 Tube Irrigant 0 / 0 Water Bolus Amount 120 / 120 0 / 0 Output: Urine 0 / 0 0 / 0 Hemodialysis Amount 4000 / 4000 Other: # Voids 0 Date of Last Bowel Movement 11/10/17 11/10/17 # Incontinent Bowel Movements 3 2 - Constitutional no acute distress Comments: lethargic, confusion. - Routine HEENT Exam Head: Present: normocephalic, atraumatic - Routine Neck Exam Absent: JVD - Routine Respiratory Exam Present: wheezes - Routine Cardiovascular Exam Present: S1, S2 - Routine Neurological Exam Present: alert - Urinary Catheter Management Indwelling Urethral Catheter Cath placed during this visit: yes Reason for continuing: Hourly intake/output Insertion date: 10/31/17 Insertion time: 10:30 Assessment and Plan - Assessment (1) Acute kidney injury Code(s): N17.9 - Acute kidney failure, unspecified Status: Acute Plan: Acute kidney injury with a creatinine initially at 1.33 and at day of consult 2.89 NANETTE most likely ATN from hypotension possible vancomycin toxicity with vancomycin level of 30.9. No baseline creatinine available. CT of abdomen with unremarkable kidneys. Urine negative for proteinuria Hyperphosphatemia, on PhosLo Monitor strict I+O Avoid IVF Avoid nephrotoxins including aminoglycosides and IV contrast Continue to monitor urinary output, BMP, and watch for renal recovery. No signs of renal recovery so far. HD today as above.
--- NOTE | 2017-11-11 15:20 | P.PNID ---
Subjective Remarks: On HD remains ANuric extubated, on NC O2 no fever + diarrhea Marked leukocytosis with WBC today up to 26 K very confused Antibiotics: cefazolin Past Medical History: ETOH Allergies/Adverse Reactions: Allergies No Known Allergies Allergy (Unverified 10/30/17 17:35) Objective Vital Signs 11/10/17 15:30 11/10/17 16:00 11/10/17 16:30 Temperature Pulse Rate 70 71 72 Respiratory Rate 17 16 15 Blood Pressure 113/63 121/67 123/65 Pulse Oximetry 95 97 97 11/10/17 17:00 11/10/17 17:30 11/10/17 18:00 Temperature Pulse Rate 75 73 74 Respiratory Rate 19 17 16 Blood Pressure 125/75 127/67 120/70 Pulse Oximetry 95 97 97 11/10/17 20:00 11/10/17 21:36 11/10/17 21:37 Temperature 97.8 F Pulse Rate 82 90 Respiratory Rate 18 21 Blood Pressure 151/84 H Pulse Oximetry 95 98 11/10/17 22:00 11/11/17 00:00 11/11/17 01:17 Temperature Pulse Rate 94 H 94 H 93 H Respiratory Rate 18 17 Blood Pressure 146/77 H Pulse Oximetry 95 95 11/11/17 02:00 11/11/17 04:00 11/11/17 05:36 Temperature 97.9 F Pulse Rate 93 H 88 87 Respiratory Rate 20 18 Blood Pressure 138/81 Pulse Oximetry 95 11/11/17 06:00 11/11/17 08:00 11/11/17 08:46 Temperature Pulse Rate 88 83 80 Respiratory Rate 23 Blood Pressure Pulse Oximetry 95 11/11/17 10:00 11/11/17 12:00 11/11/17 14:00 Temperature Pulse Rate 85 87 92 H Respiratory Rate Blood Pressure Pulse Oximetry Intake & Output 11/10/17 11/11/17 11/11/17 18:59 06:59 18:59 Intake Total 796 / 796 500 / 500 350 / 350 Output Total 0 / 0 0 / 0 4000 / 4000 Balance 796 / 796 500 / 500 -3650 / -3650 Weight 136.5 kg Intake: IV 620 / 620 500 / 500 350 / 350 Precedex Inj 1,000 MCG In NS 250 / 250 500 / 500 250 / 250 Inj 240 ML @ 0.2 MCG/KG/HR 7 mls/hr IV.CONT TITRATE PRN Rx#: [id number] Diprivan 1000 mg/100 ml Inj 1, 270 / 270 000 mg In 100 ml @ 5 MCG/KG/MIN 3.81 mls/hr IV.CONT TITRATE PRN Rx#:[id number] Flexbumin 25% Inj 100 ML @ 60 100 / 100 mls/hr IV.SIG WITH DIALYSIS PRN Rx#:[id number] Ancef Inj 1,000 MG In NS Inj 100 / 100 100 ML @ 200 mls/hr IV.SIG Q24H AMADEO Rx#:[id number] Oral 0 / 0 Oral Supplement 0 / 0 Tube Feeding 56 / 56 0 / 0 Tube Irrigant 0 / 0 Water Bolus Amount 120 / 120 0 / 0 Output: Urine 0 / 0 0 / 0 Hemodialysis Amount 4000 / 4000 Other: # Voids 0 Date of Last Bowel Movement 11/10/17 11/10/17 # Incontinent Bowel Movements 3 2 11/10/17 20:10 Blood - Peripheral Aerobic Blood Culture - Preliminary No growth in 1 day 11/10/17 20:10 Blood - Peripheral Anaerobic Blood Culture - Preliminary No growth in 1 day 11/10/17 20:15 Blood - Peripheral Aerobic Blood Culture - Preliminary No growth in 1 day 11/10/17 20:15 Blood - Peripheral Anaerobic Blood Culture - Preliminary No growth in 1 day Lab - Hematology Results 11/10/17 10:30 WBC 26.8 H RBC 3.18 L Hgb 11.1 L Hct 32.2 L MCV 101.0 H MCH 34.7 H MCHC 34.4 RDW 15.2 Plt Count 64 L MPV 10.3 Prelim Diff (Auto) Slide review pending Neut % (Auto) 88.6 H Lymph % (Auto) 5.4 L Dyer % (Auto) 4.8 Eos % (Auto) 0.3 Baso % (Auto) 0.9 Neut # (Auto) 23.7 H Lymph # (Auto) 1.4 Dyer # (Auto) 1.3 H Eos # (Auto) 0.1 Baso # (Auto) 0.2 WBC Differential Manual diff final Seg Neuts % (Manual) 88 H Band Neuts % (Manual) 1 Lymphocytes % (Manual) 4 L Monocytes % (Manual) 4 Eosinophils % (Manual) 1 Metamyelocytes % (Man) 1 Myelocytes % (Man) 1 H Abs Neuts (Manual) 24.4 H Differential Comment . Toxic Granulation 1+ H Platelet Estimate Low L Platelet Morphology Enlarged H Lab - Chemistry Results 11/09/17 11/09/17 11/10/17 17:30 23:10 05:11 Sodium Potassium Chloride Carbon Dioxide Anion Gap BUN Creatinine Estimated GFR POC Glucose 130 H 114 H 135 H Random Glucose Lactic Acid Calcium Phosphorus Magnesium Total Bilirubin AST ALT Alkaline Phosphatase Ammonia Total Protein Albumin Lipase 11/10/17 11/10/17 11/10/17 10:30 10:30 10:30 Sodium 136 Potassium 5.3 H Chloride 98 Carbon Dioxide 20.0 L Anion Gap 18 H BUN 83 H Creatinine 8.73 H Estimated GFR 6 L POC Glucose Random Glucose 113 H Lactic Acid 1.4 Calcium 8.1 L Phosphorus 10.2 H Magnesium 2.9 H Total Bilirubin 10.1 H AST 154 H ALT 68 Alkaline Phosphatase 186 H Ammonia 28 Total Protein 7.8 D Albumin 2.5 L Lipase 2172 H 11/10/17 11/10/17 11/11/17 11:26 17:13 00:17 Sodium Potassium Chloride Carbon Dioxide Anion Gap BUN Creatinine Estimated GFR POC Glucose 112 H 86 105 Random Glucose Lactic Acid Calcium Phosphorus Magnesium Total Bilirubin AST ALT Alkaline Phosphatase Ammonia Total Protein Albumin Lipase 11/11/17 11/11/17 11/11/17 04:53 06:00 12:12 Sodium 135 L Potassium 5.3 H Chloride 97 L Carbon Dioxide 18.7 L Anion Gap 19 H BUN 98 H Creatinine 9.90 H Estimated GFR 6 L POC Glucose 101 82 Random Glucose 85 Lactic Acid Calcium 7.7 L Phosphorus 9.7 H Magnesium Total Bilirubin AST ALT Alkaline Phosphatase Ammonia Total Protein Albumin 2.6 L Lipase Imaging: ITS Impressions Head CT 10/30/17 17:35 CONCLUSION: 1. No acute intracranial abnormalities. . Chest CTA 10/30/17 19:02 CONCLUSION: 1. Suboptimal bolus but no evidence for central pulmonary emboli. 2. Patchy airspace consolidation right lung base most characteristic of pneumonia. No significant effusion. Foot X-Ray 10/30/17 21:27 CONCLUSION: No acute findings. Moderate degenerative change. Bone spurs posterior calcaneus. Lumbar Spine CT 10/30/17 21:43 CONCLUSION: 1. No acute fracture. 2. 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 3. At L5-S1 there is a small central disc protrusion. Mild bilateral foraminal encroachment. Thoracic Spine CT 10/30/17 21:43 CONCLUSION: 1. Negative for acute traumatic injury to the thoracic spine. Small Schmorl's nodes in the lower thoracic spine. Foot MRI 10/31/17 00:00 CONCLUSION: 1. Lumbar Spine MRI 10/31/17 00:00 CONCLUSION: Extruded disc fragment with a donor site at L4-L5 lying posterior to the L4 vertebral body severe right-sided and moderate left-sided foraminal narrowing. There is no evidence of abscess. Sacrum/Coccyx MRI 10/31/17 00:00 CONCLUSION: 1. Negative MRI of the sacrum Abdomen X-Ray 11/07/17 00:00 CONCLUSION: NG tip in stomach. No free air. Abdomen/Pelvis CT 11/08/17 00:00 CONCLUSION: 1. Nonspecific, nonobstructive bowel gas pattern most consistent with an ileus and/or gastroenteritis. There is a small amount of ascitic fluid. The study was performed without intravenous or oral contrast. 2. Consolidation now noted in both lung bases with small effusions left greater than right. 3. Multiple calcified gallstones again noted. 4. Small gas bubble in the bladder likely due to recent instrumentation. Chest X-Ray 11/10/17 06:00 CONCLUSION: Stable chest x-ray with left pleural effusion with associated airspace consolidation. There is also mild consolidation versus atelectasis at the right base. Physical Exam: GENERAL: sedated intubated SKIN: Warm and dry. Jaundiced HEAD: Atraumatic. Normocephalic. EYES: Pupils equal and round. Slight scleral icterus. No injection or drainage. ENT: No nasal bleeding or discharge. Mucous membranes dry NECK: Trachea midline. No JVD. CARDIOVASCULAR: Regular rate and rhythm. RESPIRATORY: No accessory muscle use. rhonchi to auscultation. Breath sounds equal bilaterally. GASTROINTESTINAL: Abdomen soft, tender, very distended and tympanic. Hepatic and splenic margins not palpable. : a nuric MUSCULOSKELETAL: Extremities without clubbing, cyanosis, or edema. No obvious deformities. NEUROLOGICAL:vry lethargic. Very confused not follows commands, unintelligible speech PSYCHIATRIC: somewhat agitated Assessment and Plan - Plan GAS sepsis ? source MSSA sepsis - PNA is most likely - 2 D echo neg for veg's - CXR looks worse Acute VDRF Acute ETOH withdrawl Lactic acidosis ARF, now on HD: from [facility] ABd distention - KUB OK Liver failure with DIC and probable hepatorenal sd Hyperbilirubinemia: worse diarrhea - c.diff negative leukocytosis, leukemoid reaction worsenign abd distention cont cefazolin (that will cover both MSSA and GAS) repeat BC rechk C.diff monitor WBC KUB, possible CT A/P w/o IV contrast dwRN
--- NOTE | 2017-11-11 16:19 | XR ---
EXAM DATE: 11/11/2017 4:14 PM EDT AGE/SEX: 52 years / Male INDICATIONS: Distention. CLINICAL DATA: This is the patient's subsequent encounter. Patient reports that signs and symptoms h ave been present for 2 weeks and indicates a pain score of Nonresponsive. MEDICAL/SURGICAL HISTORY: Non-responsive. Non-responsive. COMPARISON: [facility], ABDOMEN 1V KUB, 11/07/2017. . FINDINGS: On today's examination there is some mildly to moderately dilated loops of small bowel with air. The re is some air in the colon which is nondilated. The dilatation of small bowel is a new finding christo red to the prior exam. The previously noted NG tube has been removed. CONCLUSION: Nonspecific multiple mild to moderately dilated loops of small bowel with air. This can be seen with an small bowel ileus versus distal partial small bowel obstruction. Electronically signed by: Genaro Short MD 11/11/2017 4:18 PM EDT
--- NOTE | 2017-11-11 16:55 | P.PNADD ---
Addendum to Inpatient Note Additional information: KUB was reviewed CT from 11/08 was reviewed with radiologist Limited study No NG, Dobhoff is planned PLAN: KUB in am CT abd/pel with oral contrast once Dobhoff is in
--- NOTE | 2017-11-11 17:53 | XR ---
EXAM DATE: 11/11/2017 5:42 PM EDT AGE/SEX: 52 years / Male INDICATIONS: DOBHOFF PLACEMENT CLINICAL DATA: This is the patient's subsequent encounter. Patient reports that signs and symptoms h ave been present for 2 weeks and indicates a pain score of Nonresponsive. MEDICAL/SURGICAL HISTORY: Non-responsive. Non-responsive. COMPARISON: [facility], CHEST 1V SINGLE AP, 11/10/2017. . FINDINGS: Left greater than right basilar consolidation again noted and not significantly changed. A small mode rate left pleural effusion is likely. No pneumothorax. Heart size stable, within normal limits. There is a Dobbhoff feeding tube with tip in the upper stomach. Patient has been extubated since yest erday. A left internal jugular central venous catheter remains in place, tip in the superior vena cav a. CONCLUSION: 1. Endotracheal tube and nasogastric tube removed. 2. Dobbhoff feeding tube present, tip in the upper stomach. 3. Left IJ central venous catheter unchanged. 4. Left greater than right basilar consolidation and left pleural effusion not significantly changed . Electronically signed by: Red Collazo MD 11/11/2017 5:52 PM EDT
[2017-11-12] MEDS: Dexmedetomidine Inj 1,000 MCG in Sodium Chlor 0.9% Inj 240 ML IV.CONT PRN (01:05)
[2017-11-12] MEDS: Oral Hygiene Kit OROPHARYNG SCH ×2 (03:37→14:15)
--- NOTE | 2017-11-12 03:45 | XR ---
EXAM DATE: 11/12/2017 3:26 AM EDT AGE/SEX: 52 years / Male INDICATIONS: Possible ileus. CLINICAL DATA: This is the patient's subsequent encounter. Patient reports that signs and symptoms h ave been present for 2 weeks and indicates a pain score of Nonresponsive. MEDICAL/SURGICAL HISTORY: Non-responsive. Non-responsive. COMPARISON: [facility] [place] 1V KUB, 11/11/2017. . FINDINGS: 2 supine frontal views of the abdomen demonstrate air distended small bowel and colon with a similar degree of distention to yesterday's examination. No transition point is appreciated. Feeding tube is looped in the stomach. No organomegaly is appreciated. There are degenerative changes of the lumbar spine. CONCLUSION: Stable examination with abnormally distended small bowel and colon. Electronically signed by: Red Le MD 11/12/2017 3:43 AM EDT
[2017-11-12] MEDS: Insulin NovoLOG Aspart Correctional Sugar Inj SQ SCH ×4 (06:15→14:15)
[2017-11-12] MEDS: Chlorhexidine 0.12% Oral Kit 15 ML UDC OROPHARYNG SCH (07:59)
[2017-11-12] MEDS: rifAXIMin 550 MG Tablet PO SCH (10:49)
[2017-11-12] MEDS: Polyethylene Glycol 3350 17 GM Packet PO SCH (10:50)
[2017-11-12] MEDS: Mupirocin 2% Nasal Oint Topical Syringe EACH NARE SCH (10:50)
[2017-11-12] MEDS: Senna/Docusate Sodium 8.6/50 MG Tablet PO SCH (10:50)
[2017-11-12] MEDS: Hypromellose 0.3% Opth Gel 10 GM Bottle EACH EYE SCH (10:51)
[2017-11-12] MEDS: Calcium Acetate 667 MG Capsule PO SCH ×3 (10:51→14:16)
[2017-11-12] MEDS ORDERED: Diatrizoate Meglum/Diatrizoate Sod Liq 9 ML UDC PO ONE (11:30)
[2017-11-12 12:03] LABS: Albumin 2.7 g/dL (3.4-5.0); Carbon Dioxide 21.5 meq/L (21.0-32.0); Total Protein 8.4 g/dL (6.4-8.2)
[2017-11-12 12:17] LABS: Calcium 7.3 mg/dL (8.5-10.1)
--- NOTE | 2017-11-12 12:25 | XR ---
EXAM DATE: 11/12/2017 12:20 PM EDT AGE/SEX: 52 years / Male INDICATIONS: Shortness of breath. CLINICAL DATA: This is the patient's subsequent encounter. Patient reports that signs and symptoms h ave been present for 3 days and indicates a pain score of Nonresponsive. MEDICAL/SURGICAL HISTORY: Non-responsive. Non-responsive. COMPARISON: [facility] [place], CHEST 1V SINGLE AP, 11/11/2017. . FINDINGS: A single AP view of the chest demonstrates cardiomegaly and bibasilar airspace disease. There is also airspace disease left upper lobe. Probable left pleural effusion The cardiomediastinal contours are unremarkable. Osseous structures are intact. CONCLUSION: Bilateral airspace disease greater on the left and suspected pleural effusion on the left. Electronically signed by: Manuel Seth MD 11/12/2017 12:23 PM EDT
[2017-11-12 12:28] LABS: Baso # (Auto) 0.1 th/mm3 (0.0-0.2); Baso % (Auto) 0.3 % (0.0-2.0); Eos # (Auto) 0.1 th/mm3 (0.0-0.4); Eos % (Auto) 0.3 % (0.0-4.0); Hematocrit 31.9 % (39.0-51.0); Hemoglobin 10.9 gm/dL (13.0-17.0); Lymph % (Auto) 3.1 % (9.0-44.0); Mean Corpuscular HGB Conc 34.2 % (32.0-36.0); Mean Corpuscular Hemoglobin 34.3 pg (27.0-34.0); Mean Corpuscular Volume 100.2 fL (80.0-100.0); Mean Platelet Volume 10.8 fL (7.0-11.0); Mono # (Auto) 2.3 th/mm3 (0.0-0.9); Mono % (Auto) 7.3 % (0.0-8.0); Neut # (Auto) 27.7 th/mm3 (1.8-7.7); Platelet Count 89 th/mm3 (150-450); Red Blood Count 3.18 mil/mm3 (4.50-5.90); Red Cell Distribution Width 15.1 % (11.6-17.2); White Blood Count 31.1 th/mm3 (4.0-11.0)
[2017-11-12] MEDS ORDERED: Etomidate Inj 40 MG/20 ML Vial IV.PUSH ONE (12:36)
[2017-11-12 13:07] LABS: Lymphocytes 8 % (9-44); Metamyelocytes 1 % (0-1); Monocytes 7 % (0-8); Myelocytes 1 % (0-0); Platelet Morphology Normal (Normal); Toxic Granulation 1+
--- NOTE | 2017-11-12 13:35 | XR ---
EXAM DATE: 11/12/2017 1:20 PM EDT AGE/SEX: 52 years / Male INDICATIONS: Intubation. CLINICAL DATA: This is the patient's subsequent encounter. Patient reports that signs and symptoms h ave been present for 1 day and indicates a pain score of Nonresponsive. MEDICAL/SURGICAL HISTORY: Non-responsive. Non-responsive. COMPARISON: C, CHEST 1V SINGLE AP, 11/12/2017. . FINDINGS: Status post placement of an endotracheal tube which appears to be in good position overlying the trac heal air shadow. There is a feeding tube in the stomach. There is no evidence of pneumothorax. There is a left-sided central line in place. There are scattered bilateral airspace pulmonary infiltrates, left greater than right. Heart size is within normal limits. The bony structures are stable. CONCLUSION: 1. Status post placement of an endotracheal tube which appears to be in good position. 2. No evidence of pneumothorax. 3. Bilateral airspace pulmonary infiltrates. Electronically signed by: Genaro Short MD 11/12/2017 1:33 PM EDT
[2017-11-12] MEDS ORDERED: Octreotide Inj 50 MCG/ML Vial IV.PUSH STA (13:47)
[2017-11-12 14:03] LABS: ABG PCO2 66 mmHg (38-42); ABG PO2 103 mmHG (61-120)
--- NOTE | 2017-11-12 14:04 | P.PCN ---
Procedure: Procedure: Endotracheal intubation Preop diagnosis: Acute respiratory failure, encephalopathy, sepsis, suspected aspiration Postop diagnosis: Same Indication: Hypoxia, IV protection Sedation used: Etomidate 20 mg, rocuronium 50 mg IV Procedure: Patient was noted to have gastric contents coming out of his mouth and developed worsening hypoxia. Oral suctioning was performed. Patient was preoxygenated with 100% oxygen via Ambu bag with bag mask ventilation, following induction of sedation and neuromuscular blockade, laryngoscopy was performed using a Glidescope with good visualization of vocal cords. Patient had significant gastric contents pulled in the oral cavity which was suctioned out. An 8 [place] ET tube was passed through the vocal cords under direct visualization up to the 23 centimeter lissette and after inflating cuff of ET tube, correct placement was confirmed using bagging with good color change on CO2 detector, 5 point auscultation and chest rise with ventilation. Patient was connected to mechanical ventilation. Patient tolerated the procedure well. Postprocedure chest x-ray was ordered.
[2017-11-12] MEDS ORDERED: Octreotide Inj 500 MCG in Sodium Chlor 0.9% Inj 500 ML IV.CONT SCH (15:00)
[2017-11-12] MEDS ORDERED: Pantoprazole Inj 80 MG in Sodium Chlor 0.9% Inj 100 ML IV.CONT SCH (15:00)
[2017-11-12 16:36] LABS: ABG Base Excess -8.3 mmol/L (-2-2); ABG PCO2 57 mmHg (38-42); ABG PO2 80 mmHg (61-120)
--- NOTE | 2017-11-12 16:37 | P.PNGI ---
Subjective Interval history: This is a reconsult, for blood fecal material emesis. He was intubated for that reason. Currently pt intubated, OG Dobbhoff tube to suction with significant amount of bloody material, some blood coming out of mouth noted. Abd very distended, pt hasn't had BM for more than 10 days, despite all measures. Had persistent ileus on previous CT and x-rays. hgb earlier today was 10.9, WBC 31. Pt with hx of cirrhosis and alcohol abuse. <Immanuel Ornelas - Last Filed: 11/12/17 16:48> Physical Exam Vital signs: Vital Signs 11/11/17 18:00 11/11/17 20:00 11/11/17 20:35 Temperature 97.7 F Pulse Rate 86 86 86 Respiratory Rate 24 18 Blood Pressure 142/66 H Pulse Oximetry 91 L 93 L 11/11/17 22:00 11/12/17 00:00 11/12/17 02:00 Temperature 98.9 F Pulse Rate 88 87 87 Respiratory Rate 24 Blood Pressure 138/74 Pulse Oximetry 91 L 11/12/17 04:00 11/12/17 06:00 11/12/17 08:00 Temperature 99.0 F 98.9 F Pulse Rate 84 90 86 Respiratory Rate 25 H 24 Blood Pressure 157/75 H 137/71 Pulse Oximetry 93 L 11/12/17 10:00 11/12/17 11:04 11/12/17 12:57 Temperature Pulse Rate 81 76 Respiratory Rate 22 20 Blood Pressure Pulse Oximetry 95 11/12/17 16:09 Temperature Pulse Rate Respiratory Rate 30 H Blood Pressure Pulse Oximetry 91 L Intake & Output 11/11/17 11/12/17 11/12/17 18:59 06:59 18:59 Intake Total 500 / 500 553 / 553 Output Total 4000 / 4000 Balance -3500 / -3500 553 / 553 Weight 132 kg Intake: IV 450 / 450 250 / 250 Precedex Inj 1,000 MCG In NS 250 / 250 250 / 250 Inj 240 ML @ 0.2 MCG/KG/HR 7 mls/hr IV.CONT TITRATE PRN Rx#: [id number] Flexbumin 25% Inj 100 ML @ 60 100 / 100 mls/hr IV.SIG WITH DIALYSIS PRN Rx#:[id number] Ancef Inj 1,000 MG In NS Inj 100 / 100 100 ML @ 200 mls/hr IV.SIG Q24H AMADEO Rx#:[id number] Oral 50 / 50 Tube Feeding 63 / 63 Water Bolus Amount 240 / 240 Output: Hemodialysis Amount 4000 / 4000 Other: Date of Last Bowel Movement 11/10/17 11/10/17 11/10/17 # Bowel Movements 0 - Urinary Catheter Management Indwelling Urethral Catheter Cath placed during this visit: no <Tana Griffin - Last Filed: 11/12/17 16:45> Vital signs: Vital Signs 11/11/17 18:00 11/11/17 20:00 11/11/17 20:35 Temperature 97.7 F Pulse Rate 86 86 86 Respiratory Rate 24 18 Blood Pressure 142/66 H Pulse Oximetry 91 L 93 L 11/11/17 22:00 11/12/17 00:00 11/12/17 02:00 Temperature 98.9 F Pulse Rate 88 87 87 Respiratory Rate 24 Blood Pressure 138/74 Pulse Oximetry 91 L 11/12/17 04:00 11/12/17 06:00 11/12/17 08:00 Temperature 99.0 F 98.9 F Pulse Rate 84 90 86 Respiratory Rate 25 H 24 Blood Pressure 157/75 H 137/71 Pulse Oximetry 93 L 11/12/17 10:00 11/12/17 11:04 11/12/17 12:57 Temperature Pulse Rate 81 76 Respiratory Rate 22 20 Blood Pressure Pulse Oximetry 95 11/12/17 16:09 Temperature Pulse Rate Respiratory Rate 30 H Blood Pressure Pulse Oximetry 91 L Intake & Output 11/11/17 11/12/17 11/12/17 18:59 06:59 18:59 Intake Total 500 / 500 553 / 553 Output Total 4000 / 4000 Balance -3500 / -3500 553 / 553 Weight 132 kg Intake: IV 450 / 450 250 / 250 Precedex Inj 1,000 MCG In NS 250 / 250 250 / 250 Inj 240 ML @ 0.2 MCG/KG/HR 7 mls/hr IV.CONT TITRATE PRN Rx#: [id number] Flexbumin 25% Inj 100 ML @ 60 100 / 100 mls/hr IV.SIG WITH DIALYSIS PRN Rx#:[id number] Ancef Inj 1,000 MG In NS Inj 100 / 100 100 ML @ 200 mls/hr IV.SIG Q24H AMADEO Rx#:[id number] Oral 50 / 50 Tube Feeding 63 / 63 Water Bolus Amount 240 / 240 Output: Hemodialysis Amount 4000 / 4000 Other: Date of Last Bowel Movement 11/10/17 11/10/17 11/10/17 # Bowel Movements 0 - Constitutional morbidly obese, chronically ill appearing - Routine HEENT Exam Head: Present: normocephalic - Routine Respiratory Exam Present: CTA bilaterally - Routine Cardiovascular Exam Present: RRR - Routine Abdominal Exam Present: distended, firm, organomegaly - Detailed Abdominal Exam Bowel sounds: hypoactive - Routine Extremities Exam Present: cyanosis - Routine Skin Exam Present: intact, cyanosis, dry, jaundice - Routine Neurological Exam Sedated on a vent - Urinary Catheter Management Indwelling Urethral Catheter Cath placed during this visit: yes Reason for continuing: Hourly intake/output Insertion date: 10/31/17 Insertion time: 10:30 <Immanuel Ornelas - Last Filed: 11/12/17 16:48> Results - Labs CBC & Chem 7: 11/12/17 11:15 11/12/17 11:15 Laboratory Results - last 24 hr 11/11/17 11/11/17 11/12/17 17:54 23:17 05:48 WBC RBC Hgb Hct MCV MCH MCHC RDW Plt Count MPV Prelim Diff (Auto) Neut % (Auto) Lymph % (Auto) [place] % (Auto) Eos % (Auto) Baso % (Auto) Neut # (Auto) Lymph # (Auto) [place] # (Auto) Eos # (Auto) Baso # (Auto) WBC Differential Seg Neuts % (Manual) Band Neuts % (Manual) Lymphocytes % (Manual) Monocytes % (Manual) Metamyelocytes % (Man) Myelocytes % (Man) Abs Neuts (Manual) Differential Comment Toxic Granulation Platelet Estimate Platelet Morphology Puncture Site Patient Temperature O2 Saturation ABG pH ABG pCO2 ABG pO2 ABG HCO3 ABG O2 Content ABG Base Excess ABG Methemoglobin Jamar Test Hemoglobin Carboxyhemoglobin O2 Delivery Device Vent Setting Inspired O2 Critical Value Sodium Potassium Chloride Carbon Dioxide Anion Gap BUN Creatinine Estimated GFR POC Glucose 107 110 129 H Random Glucose Lactic Acid Calcium Prot Corrected Calcium Total Bilirubin AST ALT Alkaline Phosphatase Ammonia Total Protein Albumin 11/12/17 11/12/17 11/12/17 11:15 11:15 11:15 WBC 31.1 H RBC 3.18 L Hgb 10.9 L Hct 31.9 L MCV 100.2 H MCH 34.3 H MCHC 34.2 RDW 15.1 Plt Count 89 L D MPV 10.8 Prelim Diff (Auto) Slide review pending Neut % (Auto) 89.0 H Lymph % (Auto) 3.1 L [place] % (Auto) 7.3 Eos % (Auto) 0.3 Baso % (Auto) 0.3 Neut # (Auto) 27.7 H Lymph # (Auto) 1.0 [place] # (Auto) 2.3 H Eos # (Auto) 0.1 Baso # (Auto) 0.1 WBC Differential Manual diff final Seg Neuts % (Manual) 75 H Band Neuts % (Manual) 8 H Lymphocytes % (Manual) 8 L Monocytes % (Manual) 7 Metamyelocytes % (Man) 1 Myelocytes % (Man) 1 H Abs Neuts (Manual) 26.4 H Differential Comment . Toxic Granulation 1+ H Platelet Estimate Low L Platelet Morphology Normal Puncture Site Patient Temperature O2 Saturation ABG pH ABG pCO2 ABG pO2 ABG HCO3 ABG O2 Content ABG Base Excess ABG Methemoglobin Jamar Test Hemoglobin Carboxyhemoglobin O2 Delivery Device Vent Setting Inspired O2 Critical Value Sodium 135 L Potassium 6.0 H Chloride 96 L Carbon Dioxide 21.5 Anion Gap 18 H BUN 93 H Creatinine 9.62 H Estimated GFR 6 L POC Glucose Random Glucose 121 H Lactic Acid 1.6 Calcium 7.3 L* Prot Corrected Calcium Total Bilirubin 15.8 H AST 212 H ALT 49 Alkaline Phosphatase 219 H Ammonia Total Protein 8.4 H D Albumin 2.7 L 11/12/17 11/12/17 11/12/17 11:15 13:53 16:11 WBC RBC Hgb Hct MCV MCH MCHC RDW Plt Count MPV Prelim Diff (Auto) Neut % (Auto) Lymph % (Auto) [place] % (Auto) Eos % (Auto) Baso % (Auto) Neut # (Auto) Lymph # (Auto) [place] # (Auto) Eos # (Auto) Baso # (Auto) WBC Differential Seg Neuts % (Manual) Band Neuts % (Manual) Lymphocytes % (Manual) Monocytes % (Manual) Metamyelocytes % (Man) Myelocytes % (Man) Abs Neuts (Manual) Differential Comment Toxic Granulation Platelet Estimate Platelet Morphology Puncture Site Left radial Left radial Patient Temperature 98.6 98.6 O2 Saturation 91 85 L* ABG pH 7.13 L* 7.15 L* ABG pCO2 66 H* 57 H* ABG pO2 103 80 ABG HCO3 21 L 19 L ABG O2 Content 13.9 19.1 ABG Base Excess -7.0 L -8.3 L ABG Methemoglobin 2.2 H 0.9 Jamar Test Present Present Hemoglobin 10.7 L 16.1 H Carboxyhemoglobin 0.2 0.2 O2 Delivery Device Ventilator Ventilator Vent Setting Prvc/ac See comments Inspired O2 100 100 Critical Value Yes Yes Sodium Potassium Chloride Carbon Dioxide Anion Gap BUN Creatinine Estimated GFR POC Glucose Random Glucose Lactic Acid Calcium Prot Corrected Calcium Total Bilirubin AST ALT Alkaline Phosphatase Ammonia 143 H Total Protein Albumin Microbiology 11/10/17 20:10 Blood - Peripheral Aerobic Blood Culture - Preliminary No growth in 2 days 11/10/17 20:10 Blood - Peripheral Anaerobic Blood Culture - Preliminary No growth in 2 days 11/10/17 20:15 Blood - Peripheral Aerobic Blood Culture - Preliminary No growth in 2 days 11/10/17 20:15 Blood - Peripheral Anaerobic Blood Culture - Preliminary No growth in 2 days - Imaging Impressions Chest X-Ray 11/11/17 00:00 CONCLUSION: 1. Endotracheal tube and nasogastric tube removed. 2. Dobbhoff feeding tube present, tip in the upper stomach. 3. Left IJ central venous catheter unchanged. 4. Left greater than right basilar consolidation and left pleural effusion not significantly changed. Abdomen X-Ray 11/12/17 06:00 CONCLUSION: Stable examination with abnormally distended small bowel and colon. Chest X-Ray 11/12/17 11:51 CONCLUSION: Bilateral airspace disease greater on the left and suspected pleural effusion on the left. Chest X-Ray 11/12/17 12:50 CONCLUSION: 1. Status post placement of an endotracheal tube which appears to be in good position. 2. No evidence of pneumothorax. 3. Bilateral airspace pulmonary infiltrates. <Tana Griffin - Last Filed: 11/12/17 16:45> - Labs CBC & Chem 7: 11/12/17 11:15 11/12/17 11:15 Laboratory Results - last 24 hr 11/11/17 11/11/17 11/12/17 17:54 23:17 05:48 WBC RBC Hgb Hct MCV MCH MCHC RDW Plt Count MPV Prelim Diff (Auto) Neut % (Auto) Lymph % (Auto) [place] % (Auto) Eos % (Auto) Baso % (Auto) Neut # (Auto) Lymph # (Auto) [place] # (Auto) Eos # (Auto) Baso # (Auto) WBC Differential Seg Neuts % (Manual) Band Neuts % (Manual) Lymphocytes % (Manual) Monocytes % (Manual) Metamyelocytes % (Man) Myelocytes % (Man) Abs Neuts (Manual) Differential Comment Toxic Granulation Platelet Estimate Platelet Morphology Puncture Site Patient Temperature O2 Saturation ABG pH ABG pCO2 ABG pO2 ABG HCO3 ABG O2 Content ABG Base Excess ABG Methemoglobin Jamar Test Hemoglobin Carboxyhemoglobin O2 Delivery Device Vent Setting Inspired O2 Critical Value Sodium Potassium Chloride Carbon Dioxide Anion Gap BUN Creatinine Estimated GFR POC Glucose 107 110 129 H Random Glucose Lactic Acid Calcium Prot Corrected Calcium Total Bilirubin AST ALT Alkaline Phosphatase Ammonia Total Protein Albumin 11/12/17 11/12/17 11/12/17 11:15 11:15 11:15 WBC 31.1 H RBC 3.18 L Hgb 10.9 L Hct 31.9 L MCV 100.2 H MCH 34.3 H MCHC 34.2 RDW 15.1 Plt Count 89 L D MPV 10.8 Prelim Diff (Auto) Slide review pending Neut % (Auto) 89.0 H Lymph % (Auto) 3.1 L [place] % (Auto) 7.3 Eos % (Auto) 0.3 Baso % (Auto) 0.3 Neut # (Auto) 27.7 H Lymph # (Auto) 1.0 [place] # (Auto) 2.3 H Eos # (Auto) 0.1 Baso # (Auto) 0.1 WBC Differential Manual diff final Seg Neuts % (Manual) 75 H Band Neuts % (Manual) 8 H Lymphocytes % (Manual) 8 L Monocytes % (Manual) 7 Metamyelocytes % (Man) 1 Myelocytes % (Man) 1 H Abs Neuts (Manual) 26.4 H Differential Comment . Toxic Granulation 1+ H Platelet Estimate Low L Platelet Morphology Normal Puncture Site Patient Temperature O2 Saturation ABG pH ABG pCO2 ABG pO2 ABG HCO3 ABG O2 Content ABG Base Excess ABG Methemoglobin Jamar Test Hemoglobin Carboxyhemoglobin O2 Delivery Device Vent Setting Inspired O2 Critical Value Sodium 135 L Potassium 6.0 H Chloride 96 L Carbon Dioxide 21.5 Anion Gap 18 H BUN 93 H Creatinine 9.62 H Estimated GFR 6 L POC Glucose Random Glucose 121 H Lactic Acid 1.6 Calcium 7.3 L* Prot Corrected Calcium Total Bilirubin 15.8 H AST 212 H ALT 49 Alkaline Phosphatase 219 H Ammonia Total Protein 8.4 H D Albumin 2.7 L 11/12/17 11/12/17 11:15 13:53 WBC RBC Hgb Hct MCV MCH MCHC RDW Plt Count MPV Prelim Diff (Auto) Neut % (Auto) Lymph % (Auto) [place] % (Auto) Eos % (Auto) Baso % (Auto) Neut # (Auto) Lymph # (Auto) [place] # (Auto) Eos # (Auto) Baso # (Auto) WBC Differential Seg Neuts % (Manual) Band Neuts % (Manual) Lymphocytes % (Manual) Monocytes % (Manual) Metamyelocytes % (Man) Myelocytes % (Man) Abs Neuts (Manual) Differential Comment Toxic Granulation Platelet Estimate Platelet Morphology Puncture Site Left radial Patient Temperature 98.6 O2 Saturation 91 ABG pH 7.13 L* ABG pCO2 66 H* ABG pO2 103 ABG HCO3 21 L ABG O2 Content 13.9 ABG Base Excess -7.0 L ABG Methemoglobin 2.2 H Jamar Test Present Hemoglobin 10.7 L Carboxyhemoglobin 0.2 O2 Delivery Device Ventilator Vent Setting Prvc/ac Inspired O2 100 Critical Value Yes Sodium Potassium Chloride Carbon Dioxide Anion Gap BUN Creatinine Estimated GFR POC Glucose Random Glucose Lactic Acid Calcium Prot Corrected Calcium Total Bilirubin AST ALT Alkaline Phosphatase Ammonia 143 H Total Protein Albumin Microbiology 11/10/17 20:10 Blood - Peripheral Aerobic Blood Culture - Preliminary No growth in 2 days 11/10/17 20:10 Blood - Peripheral Anaerobic Blood Culture - Preliminary No growth in 2 days 11/10/17 20:15 Blood - Peripheral Aerobic Blood Culture - Preliminary No growth in 2 days 11/10/17 20:15 Blood - Peripheral Anaerobic Blood Culture - Preliminary No growth in 2 days - Imaging Impressions Abdomen X-Ray 11/11/17 00:00 CONCLUSION: Nonspecific multiple mild to moderately dilated loops of small bowel with air. This can be seen with an small bowel ileus versus distal partial small bowel obstruction. Chest X-Ray 11/11/17 00:00 CONCLUSION: 1. Endotracheal tube and nasogastric tube removed. 2. Dobbhoff feeding tube present, tip in the upper stomach. 3. Left IJ central venous catheter unchanged. 4. Left greater than right basilar consolidation and left pleural effusion not significantly changed. Abdomen X-Ray 11/12/17 06:00 CONCLUSION: Stable examination with abnormally distended small bowel and colon. Chest X-Ray 11/12/17 11:51 CONCLUSION: Bilateral airspace disease greater on the left and suspected pleural effusion on the left. Chest X-Ray 11/12/17 12:50 CONCLUSION: 1. Status post placement of an endotracheal tube which appears to be in good position. 2. No evidence of pneumothorax. 3. Bilateral airspace pulmonary infiltrates. <Immanuel Ornelas - Last Filed: 11/12/17 16:48> Assessment and Plan - Attending Attestation seen, examined agree with above patient also seen earlier today immediately after intubation medical team discussed with family-comfort care for now, no agressive procedures or measures gi will sign off call us as needed <Tana Griffin - Last Filed: 11/12/17 16:45> - Plan GI bleed- This is a reconsult, for blood fecal material emesis. He was intubated for that reason. Currently pt intubated, OG Dobbhoff tube to suction with significant amount of bloody material, some blood coming out of mouth noted. Abd very distended, pt hasn't had BM for more than 10 days, despite all measures. Had persistent ileus on previous CT and x-rays. hgb earlier today was 10.9, WBC 31. Pt with hx of cirrhosis and alcohol abuse. Abdomen X-Ray 11/11/17 00:00 CONCLUSION: Nonspecific multiple mild to moderately dilated loops of small bowel with air. This can be seen with an small bowel ileus versus distal partial small bowel obstruction. Abdomen X-Ray 11/12/17 06:00 CONCLUSION: Stable examination with abnormally distended small bowel and colon. Plan: - NPO - Cont. OGT to LIWS - Poor prognosis, pt not stable for gi procedures recommend palliative care - CT ordered but not stable to have done - octreotide - Consider Relistor - Supportive care - Monitor hh - Transfuse as needed - Pt seen and examined by Dr. Griffin and myself and this note is written on her behalf. <Immanuel Ornelas - Last Filed: 11/12/17 16:48>
[2017-11-12] MEDS ORDERED: Morphine Inj 4 MG/ML Vial IV.PUSH SCH (17:00)
--- NOTE | 2017-11-12 17:06 | P.PNADD ---
Addendum to Inpatient Note Reason for Addendum: Additional Documentation Additional information: Patient started having bright red blood being suctioned out of his OG tube. Remains on 100% FiO2 PEEP +15 with borderline O2 sats. Emergently dialyzed for hyperkalemia per discussion with nephrology. Discussed with Dr. Wiley to from GI. I called patient's parents and discussed current clinical status with them as well as with his brother by phone on a conference call. Patient appears to have multiorgan failure with advanced alcoholic liver disease with an upper GI bleed, acute renal failure and acute respiratory failure requiring mechanical ventilation with probable aspiration and ARDS. I explained to them that his prognosis is extremely poor even with all aggressive measures. I discussed option of placing central line and doing an EGD. I explained to them that in my opinion patient has a end stage condition at this point. patient's family decided that they would not want further invasive procedures blood transfusions or any other aggressive care and wish to focus on comfort. Patient will be made a full DNR status per their wishes with no transfusion central lines or EGD at this time. Patient is on a propofol drip. I will add Ativan and morphine as needed for comfort. Prognosis extremely poor. Patient appears to be terminal at this time.
[2017-11-12 17:08] LABS: Hematocrit 32.5 % (39.0-51.0); Hemoglobin 10.9 gm/dL (13.0-17.0)
[2017-11-12] MEDS: Albumin Human 25% Inj 100 ML IV.SIG PRN ×3 (17:16→17:19)
[2017-11-12] MEDS: Heparin 10,000 UNITS/10 ML Vial (for IV use) OTHER PRN (17:17)
[2017-11-12 17:42] LABS: Activated Partial Thrombo Time 41.8 sec (24.3-30.1); INR 1.7 Ratio; Prothrombin Time 17.6 sec (9.8-11.6)
--- NOTE | 2017-11-12 18:30 | P.DN ---
Pronouncement Note - Date and Time of Date of : 11/12/17 Time of : 18:25 - Summary Additional details: NEURO/PSYCH: Delirium tremens Acute toxic metabolic encephalopathy EtOH dependence CT brain 10/30- for acute intracranial abnormality Dexmedetomidine gtt for delirium, avoid benzodiazepines if possible as well as narcotics Continue thiamine/folic acid/multivitamin. Lorazepam discontinued for CIWA protocol 10/31 EEG: Encephalopathy, no epileptiform activity. Acetaminophen 650 mg p.o. every 8 hours as needed fever ETOH - 147 on admission RESP: Acute respiratory failure Aspiration pneumonia Intubated 10/31 for airway protection. Extubated on 11/10 following CPAP trial. Continue supplemental O2. Albuterol/ipratropium aerosols every 4 hours with albuterol aerosols every 2 hours as needed CV: Fluid overload/pulmonary edema Lactic acidemia- resolved Elevated troponin likely type II non-STEMI Off Levophed monitor HR and BP keep MAP>65mmHg Lactic acid cleared 1.0 Echo showed EF 65-70% Monitor trop (trending down). on stress dose stress steroids- HC 25ml IV q12 continue to wean stop date GI: Right/transverse mild colitis/acute Alcoholic hepatitis Hepatic steatosis Hepatosplenomegaly. Liver is 25 cm. Cholelithiasis Hyperammonia Elevated total bilirubin On Lactulose 30ml QID and rifaximin 550 twice daily for elevated ammonia, currently less than 10 Tube feeds via NG tube as tolerated with Nepro CT abdomen and pelvis demonstrates thickening of right colon extending into transverse colon. There is hepatomegaly and steatosis. On metoclopramide 5 mg every 8 hours for prokinetic agent Docusate serum/senna twice daily, polythene glycol 17 g twice daily, lactulose 4 times daily, mineral oil 30 cc 1 and enema/manual disimpaction. 11/08 CT abdomen/pelvis revealed ileus. No signs of bowel obstruction. Small ascites. Left lower lobe effusion. neostigmine 2 mg IV 1 with atropine at bedside FEN/RENAL: Acute kidney failure No hydronephrosis on CT abdomen/pelvis. Monitor renal function, I/O's, avoid nephrotoxins Renal is following- Dr. Valadez. HD initiated 11/02. Dialyzed on 11/11 ID: Group A beta Strep bacteremia 07/05 bilaterally Cellulitis toes bilaterally Leukocytosis...trending down He received piperacillin/tazobactam and vancomycin in the emergency department. Blood culture x 2 10/30 -gram-positive cocci/strep pyogenes - BC 11/01: NGTD Sputum 11/04: NGTD Sputum 10/31 -Strep Pyogenes C diff negative urine pneumococcal antigen, urine Legionella antigen, influenza a and B- all negative Infectious disease is following- Dr. Segovia Abx per ID (cefazolin) monitor for signs of infections ( Fever, WBC) MRI foot: No abscess, HEME: Acute coagulopathy DIC Leukocytosis Macrocytic anemia Thrombocytopenia Monitor coags/CBC/platelets. There is no significant active bleeding at this time, Monitor CBC. coags. s/p 2u FFP 11/02 for vascath placement ENDO: Acute hyperglycemia ? undiagnosed diabetes mellitus. Sliding-scale insulin with aspart insulin with Accu-Cheks every 6 hours to maintain euglycemia/medium regimen MSK: L5/S1 disc protrusion Pars defect L4/L5 Not a candidate for surgical intervention at this time per Dr. King consult PROPH: SCDs for DVT prophylaxis. Avoid pharmacologic DVT prophylaxis at this time due to coagulopathy, thrombocytopenia. Lansoprazole for stress ulcer prophylaxis ACCESS: Right IJ central venous line placed 10/31. Discontinue 11/07. Left radial arterial line placed 11/01. Patient started having bright red blood being suctioned out of his OG tube. Remains on 100% FiO2 PEEP +15 with borderline O2 sats. Emergently dialyzed for hyperkalemia per discussion with nephrology. Discussed with Dr. Wiley to from GI. I called patient's parents and discussed current clinical status with them as well as with his brother by phone on a conference call. Patient appears to have multiorgan failure with advanced alcoholic liver disease with an upper GI bleed, acute renal failure and acute respiratory failure requiring mechanical ventilation with probable aspiration and ARDS. I explained to them that his prognosis is extremely poor even with all aggressive measures. I discussed option of placing central line and doing an EGD. I explained to them that in my opinion patient has a end stage condition at this point. patient's family decided that they would not want further invasive procedures blood transfusions or any other aggressive care and wish to focus on comfort. Patient will be made a full DNR status per their wishes with no transfusion central lines or EGD at this time. Patient is on a propofol drip. I will add Ativan and morphine as needed for comfort. Prognosis extremely poor. Patient appears to be terminal at this time. TOD 182 - Additional Data Confirmation of : no pulse Family: at bedside (Hematemesis/liver failure) Attending/PCP notified?: Yes Attending physician: Terra Abdullahi MD Was code activated?: No Autopsy requested?: No cloth examiner notified?: Yes Organ bank notified?: Yes Advance directives: Yes
== END 2017-11-12 18:30 | disposition expired ==
LOC: NEPE 17:07 → NEDA 21:28 → HIMC 22:55
PROVIDERS: ADMIT Emergency Medicine; ATTEND Emergency Medicine